=== PATIENT | female | born 2005 | race Caucasian/White ===

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

== ENCOUNTER → 2025-02-24 | Outpatient (CLI) | payer OTHER, SELFPAY | END | disposition home or self-care (01) | PROVIDERS: PCP Student in an Organized Health Care Education/Training Program; Referring Provider Advanced Practice Midwife; Visit Provider Advanced Practice Midwife | DX: N92.1 Excessive and frequent menstruation with irregular cycle (principal) | CPT/HCPCS: 36415; 85240; 85245; 85246 ==

== ENCOUNTER 2025-07-09 22:52 | Emergency (ER) | payer OTHER, SELFPAY ==
[2025-07-09 22:53] VITALS: BP 157/97; PULSE 103; RESP 18; TEMP 37.1; O2SAT 100; BMI 28.0
--- NOTE | 2025-07-09 23:08 | EKG12_ITS ---
Test Reason : CP Blood Pressure : */* mmHG Vent. Rate : 73 BPM Atrial Rate : 73 BPM P-R Int : 136 ms QRS Dur : 96 ms QT Int : 388 ms P-R-T Axes : 7 55 41 degrees QTcB Int : 427 ms Normal sinus rhythm Normal ECG Confirmed by HARRY MATHUR, CHRIS ([id number]), editorial director WILBERTO PATTERSON ([id number]) on 07/13/2025 7:29:26 AM Referred By: Confirmed By: CHRIS MCDONALD MD
[2025-07-09] MEDS: 0.9% Normal Saline (1000mL) 1,000 ML 999 ML IV (23:32)
[2025-07-09] MEDS: Ketorolac 30 MG/ML Syringe IV (23:33)
--- NOTE | 2025-07-09 23:36 | EDS_ITS ---
HPI History of Present Illness Chief Complaint: Chest Pain Informant: patient Narrative Narrative: Patient is a 20-year-old female with reported past medical history of POTS. She states that throughout the day today she has had bouts where she feels like her heart is racing and skipping beats. She does states she has had a Holter monitor before with no obvious findings for cardiac dysrhythmia. She states that symptoms were more mild or vague during the day but have worsened this evening. She describes the pain as sharp and states it does not radiate there is no nausea vomiting diaphoresis or shortness of breath. She denies any excessive stimulant use or illicit drug use. She denies any family history of cardiac disease at a young age. She states that there has been no recent travel surgery or history of DVT/PE. She denies any recent trauma or excessive activity. However as the pain has worsened throughout the evening she presents for evaluation. [facility] Medical History Strain of right rotator cuff capsule Right shoulder strain Acute pharyngitis, unspecified Hx of renal calculi Otitis media Acute bacterial conjunctivitis Bronchitis Acute frontal sinusitis, unspecified Fatigue SOB (shortness of breath) Routine sports physical exam Home Medications ?Medication ?Instructions ?Recorded ?Last Taken ?Type sertraline 50 mg tablet 50 mg PO DAILY 01/17/20 Unkn own History oxycodone-acetaminophen 5 mg-325 1 tab PO Q6H PRN PRN pain 5 days 05/23/22 Unknown Rx mg tablet #20 TABLETS Allergy/AdvReac Type Severity Reaction Status Date / Time codeine Allergy Other Verified 07/09/25 22:53 tramadol Allergy Unknown Verified 07/09/25 22:53 Family History Mother Asthma Surgical History Thumb fracture Social History household members: family Smoking Status: Never smoker substance use type: does not use ROS ROS ED Constitutional Constitutional ED: Denies chills or fever(s) ENT ENT ED: Denies sore throat Cardiovascular Cardiovascular: Reports chest pain, palpitations and racing heartbeat Respiratory/Chest Respiratory/Chest: Denies cough or dyspnea Gastrointestinal Gastrointestinal: Denies abdominal pain, diarrhea, nausea or vomiting Musculoskeletal Musculoskeletal: Denies back pain or myalgias Integumentary Denies rash Neurologic Neurologic: Denies headache(s) Hematologic/Lymphatic Hematologic/Lymphatic: Denies easy bleeding or easy bruising EXAM Physical Exam Const Vital Signs: 07/09/25 22:53 07/09/25 23:03 07/09/25 23:53 Temperature 98.7 F Temperature Source Oral Pulse Rate 103 H 75 Respiratory Rate 18 16 Respiratory Effort Normal Blood Pressure 157/97 H 132/79 H Blood Pressure Mean 117 96 Pulse Ox 100 97 Oxygen Delivery Method Room Air Room Air 07/10/25 00:00 07/10/25 00:53 Temperature 98.7 F Temperature Source Pulse Rate 66 62 Respiratory Rate 16 16 Respiratory Effort Blood Pressure 132/79 H 143/98 H Blood Pressure Mean 96 113 Pulse Ox 100 99 Oxygen Delivery Method Room Air Positive well nourished and well developed General Appearance ED: well developed; Negative for pallor HEENT HEENT Narrative: Normocephalic atraumatic Eyes PERRL and EOMs intact bilaterally General Eye ED: Negative for scleral icterus Neck supple and no JVD Chest Wall Chest Narrative: No bony deformity or subcutaneous emphysema noted There is mild pain with palpation in the intercostal spaces of the left anterior chest wall rib regions 4-6 Resp normal respiratory effort and clear to auscultation bilaterally Cardio regular rhythm Rate: other Other Details: Slightly tachycardic rate with regular rhythm No murmurs rubs or gallop Radial and carotid pulses are equal and symmetric GI normal to inspection, nondistended, normoactive bowel sounds, non-tender, non- distended and no masses Auscultation: normoactive bowel sounds Palpation: soft Extremity normal to inspection Extremity Narrative: No asymmetric edema no pitting edema negative Homans' sign bilaterally Neuro oriented x3, CN's II-XII intact bilaterally and no sensory deficits noted Sensorium / Orientation: alert Motor Exam: strength 5/5 throughout Psych mental status grossly normal Skin no rashes or lesions noted and no wounds General Skin Exam: Negative for jaundice or pallor MDM MDM MDM Narrative Medical decision making narrative: Patient arrived ER mildly tachycardic and hypertensive otherwise stable vitals. She is low risk for acute coronary syndrome as well as pulmonary embolus but did report tachycardia and palpitations prior to chest discomfort. Therefore in order to rule out acute coronary syndrome versus cardiac dysrhythmia versus pulmonary embolus versus lung pathology such as pneumonia or pneumothorax I did like to perform basic laboratory studies with EKG D-dimer and chest x-ray. EKG revealed normal sinus rhythm without ischemic or STEMI changes there was no ectopy or cardiac dysrhythmia. She was kept on the rn cardiac rehab and there was no dysrhythmia noted either. Blood work reveals no signs of acute blood loss anemia clinically significant electrolyte abnormality or JACOBO. D-dimer is negative going against PE and dissection. Troponin is normal going against ACS or myocarditis. Chest x-ray revealed no acute lung pathology. Therefore this time patient is low risk for ACS she has stable vitals and based on workup no signs of PE dissection or lung pathology and is otherwise safe for discharge. History & Record Review Discussion w/independent historian: Patient Lab Data Attestation: I reviewed the patient's lab results. Labs: Laboratory Results - last 24 hr 07/09/25 23:34 WBC 8.2 RBC 4.19 L Hgb 12.5 Hct 36.0 L MCV 85.9 MCH 29.8 MCHC 34.7 RDW Std Deviation 35.5 RDW Coeff of Delmis 11.4 L Plt Count 211 MPV 9.7 Immature Gran % (Auto) 0.200 Neut % (Auto) 59.0 Lymph % (Auto) 32.4 [place] % (Auto) 6.3 Eos % (Auto) 1.5 Baso % (Auto) 0.6 Absolute Neuts (auto) 4.8 Absolute Lymphs (auto) 2.64 Nucleated RBC % 0 D-Dimer Quant (PE/DVT) < 0.27 L Sodium 140 Potassium 3.0 L Chloride 103 Carbon Dioxide 23.3 Anion Gap 14 BUN 7 Creatinine 0.77 Estim Creat Clear Calc 104.74 Est GFR (MDRD) Non-Af 111 BUN/Creatinine Ratio 8.9 L Glucose 113 H Calcium 9.7 Magnesium 2.1 Troponin T High Sens < 6 TSH 1.920 Serum , Qual NEGATIVE Radiography Diagnostic Testing: Clinical Impression(s) from Imaging Studies Chest X-Ray 07/09/25 23:59 IMPRESSION: No evidence for acute abnormality. Reading [facility] 2 view chest x-ray as interpreted by the emergency medicine physician reveals no acute infiltrate pneumothorax pleural effusion or widening the mediastinum Discharge Plan Triage Chief Complaint: Chest Pain ED Provider: Drew Azevedo Dx/Rx/DC Orders Clinical Impression: Acute nonspecific chest pain with low risk of coronary artery disease, Palpitations Instructions: ED Chest Pain, Uncertain Cause, ED Heart Palpitations Prescriptions: No Action sertraline 50 mg tablet 50 mg PO DAILY Patient Comments: TAKE 1 TABLET BY MOUTH EVERY DAY oxycodone-acetaminophen [oxycodone-acetaminophen] 5-325 mg tablet 1 tab PO Q6H PRN PRN (Reason: pain) 5 Days Qty: 20 0RF Primary Care Provider: Celso Freire Referrals: Celso Freire DO [Primary Care Provider] - Activity Restrictions/Additional Instructions: Your workup today did not show any signs of active heart damage blood clot lung pathology or abnormal heart rhythm. Please follow-up with your family doctor and/or light cleaner repeat evaluation and return to the ER should you have any further concerns Print Language: Grenadian Disposition Disposition: Home, Self Care Discharge Date/Time: 07/10/25 00:59
[2025-07-09 23:41] LABS: Hematocrit 36.0 % (37-47); Hemoglobin 12.5 g/dL (12.0-15.0); Immature Granulocytes Count 0.020 X10^3/uL (0.0-0.0); Mean Corp Hgb Conc 34.7 g/dL (32-36); Mean Corpuscular Volume 85.9 fL (81-99); Mean Platelet Vol. 9.7 fl (6.2-12.0); NRBC Flagged by Analyzer 0 % (0-5); Platelet Count 211 K/mm3 (150-450); RBC Distribution Width CV 11.4 % (11.6-14.6); RBC Distribution Width SD 35.5 fl (35.1-43.9); Red Blood Count 4.19 M/mm3 (4.2-5.4); White Blood Count 8.2 K/mm3 (4.4-11.0)
--- OUTSIDE RECORDS SUMMARY | 2025-07-09 23:41 | XMS RPT_ITS | CCD ---
Author Organization [facility] CliniSynv Care Team Providers Care Orange Peel Operator Name Role Phone ABDI, LINDA C Unavailable Unavailable ZAUNER, CHRISTIE L Unavailable Unavailable TABOR, GENARO L Unavailable Unavailable ABDI, LINDA C Unavailable Unavailable ABDI, LINDA C Unavailable Unavailable TABOR, GENARO L Unavailable Unavailable ABDI, LINDA C Unavailable Unavailable ABDI, LINDA C Unavailable Unavailable DAISY CHUN Unavailable Unavailable ABDI, LINDA C Unavailable Unavailable ABDI, LINDA C Unavailable Unavailable TABOR, GENARO L Unavailable Unavailable ABDI, LINDA C Unavailable Unavailable ABDI, LINDA C Unavailable Unavailable TABOR, GENARO L Unavailable Unavailable ABDI, LINDA C Unavailable Unavailable ABDI, LINDA C Unavailable Unavailable TABOR, GENARO L Unavailable Unavailable ABDI, LINDA C Unavailable Unavailable ABDI, LINDA C Unavailable Unavailable Veale PAC, Donald A Unavailable Dr. Celso Freire Primary Care Provider Dr. Celso Freire Referring Provider MIGUEL Sparks Attending Provider Celso Freire DO Primary Care Provider Dr. Celso Freire Primary Care Provider Dr. Celso Freire Referring Provider MIGUEL Strickland Attending Provider Celso Freire DO Primary Care Provider Celso Freire DO Primary Care Provider Celso Freire DO Primary Care Provider CELSO FREIRE DO Primary Care Physician CELSO FREIRE DO Primary Care Unavailable DIDI LOWERY MD Attending Unavailable FREIRE, CELSO L Primary Care Unavailable CECI TOVAR Attending Unavailab le CHENG, LITTLE Referring Unavailable FREIRE, CELSO L Primary Care Unavailable CECI TOVAR Attending Unavailab le Freire DOCelso Primary Care Provider Cheng FARM MANAGER.SENIOR ACCOUNT CLERK, Little Fernandez Unavailable Lara FARM MANAGER.Kelsi TREJO Unavailable Dr. Celso Freire DO Primary Care Provider Raya Taveras CNM Attending Provider Raya Taveras CNM Referring Provider Raya Taveras Attending Unavailable Raya Taveras Referring Unavailable Freire, Celso Primary Care Unavailable Freire, Celso Primary Care Unavailable Assessment, Health Risk Attending Unavaila ble Assessment, Health Risk Referring Unavaila ble Cheng FARM MANAGER.SENIOR ACCOUNT CLERK, Little Fernandez Unavailable Sakina FARM MANAGER.MAYA, Annalisa Hendrickson Unavailable KELSI BERMUDEZ Attending Unavailable FREIRE, CELSO L Primary Care Unavailable FREIRE, ECLSO L Primary Care Unavailable JAQUELINE CARDONA Attending Unavailable MARION MATUTE Referring Unavailable Teresita'RAYA RUIZ Attending Unavailable FREIRE, CELSO L Primary Care Unavailable FEDERICO MONROY Referring Unavailable Teresita'RAYA RUIZ Attending Unavailable FEDERICO MONROY Referring Unavailable FREIRE, CELSO L Primary Care Unavailable FREIRE, CELSO L Primary Care Unavailable FEDERICO MONROY Referring Unavailable FEDERICO MONROY Referring Unavailable FEDERICO MONROY Attending Unavailable FREIRE, CELSO L Primary Care Unavailable KELSI BERMUDEZ Attending Unavailable FREIRE, CELSO L Primary Care Unavailable SELF Referring Unavailable KELSI BERMUDEZ Referring Unavailable FREIRE, CELSO L Primary Care Unavailable LARASALLY LOUEKAH Referring Unavailable FREIRE, CELSO L Primary Care Unavailable O'RAYA RUIZ Attending Unavailable FEDERICO MONROY Referring Unavailable FREIRE, CELSO L Primary Care Unavailable O'RAYA URIZ Attending Unavailable FEDERICO MONROY Referring Unavailable FREIRE, CELSO L Primary Care Unavailable FREIRE, CELSO L Primary Care Unavailable KELSI BERMUDEZ Attending Unavailable FREIRE, CELSO L Primary Care Unavailable LARAKELSI Attending Unavailable FREIRE, CELSO L Primary Care Unavailable LARA, KELSI Referring Unavailable EMELY HANDY Referring Unavailable FREIRE, CELSO L Primary Care Unavailable FREIRE, CELSO L Primary Care Unavailable FEDERICO MONROY Attending Unavailable RAYA AMBRIZ Attending Unavailable FEDERICO MONROY Referring Unavailable FREIRE, CELSO L Primary Care Unavailable FREIRE, CELSO L Primary Care Unavailable ANNALISA PRESLEY Attending Unavailable LARA, KELSI Referring Unavailable FREIRE, CELSO L Primary Care Unavailable LARA, KELSI Referring Unavailable FREIRE, CELSO L Primary Care Unavailable FREIRE, CELSO L Primary Care Unavailable JAQUELINE CARDONA Attending Unavailable MARION MATUTE Referring Unavailable RAYA TAVERAS Attending Unavailable FREIRE, CELSO L Primary Care Unavailable FREIRE, CELSO L Primary Care Unavailable KELSI BERMUDEZ Attending Unavailable FEDERICO MONROY Attending Unavailable FREIRE, CELSO L Primary Care Unavailable FREIRE, CELSO L Primary Care Unavailable LARA, KELSI Referring Unavailable RAYA TAVERAS Attending Unavailable FREIRE, CELSO L Primary Care Unavailable TAYLER DUNCAN Attending Unavailable FREIRE, CELSO L Primary Care Unavailable HAYLEY LOZOYA Attending Unavailable FREIRE, CELSO L Primary Care Unavailable TAHMINA PRESLEYANDA EMEKA Attending Unavailable FREIRE, CELSO L Primary Care Unavailable FREIRE, CELSO L Primary Care Unavailable TINA POWER Attending Unavailable TINA POWER Referring Unavailable FREIRE, CELSO L Primary Care Unavailable FREIRE, CELSO L Primary Care Unavailable ANNALISA PRESLEY Attending Unavailable HILARIO KILLIAN Attending Unavailable FREIRE, CELSO L Primary Care Unavailable LITTLE CHENG Attending Unavaillloyd e FREIRE, CELSO L Primary Care Unavailable FREIRE, CELSO L Primary Care Unavailable LARAKELSI Attending Unavailable FREIRE, CELSO L Primary Care Unavailable RAYA TAVERAS Attending Unavailable NETO MCARTHUR Referring Unavailable FREIRE, CELSO L Primary Care Unavailable NETO MCARTHUR Attending Unavailable FREIRE, CELSO L Primary Care Unavailable NETO MCARTHUR Attending Unavailable SELF Referring Unavailable FREIRE, CELSO L Primary Care Unavailable NETO MCARTHUR Referring Unavailable FREIRE, CELSO L Primary Care Unavailable KANTARAS, NETO T Attending Unavailable FREIRECELSO L Primary Care Unavailable KANTARAS, NETO T Attending Unavailable SELF Referring Unavailable FREIRECELSO L Primary Care Unavailable KANTARAS, NETO T Attending Unavailable SELF Referring Unavailable FREIRECELSO L Primary Care Unavailable KANTARAS, NETO T Referring Unavailable FREIRECELSO Primary Care Unavailable KANTARAS, NETO T Referring Unavailable FREIRECELSO Primary Care Unavailable KANTARAS, NETO T Admitting Unavailable KANTARAS, NETO T Attending Unavailable FREIRECELSO L Primary Care Unavailable KANTARAS, NETO T Referring Unavailable FREIRECELSO Primary Care Unavailable FEDERICO MONROY Referring Unavailable FREIRECELSO Primary Care Unavailable KANTARAS, NETO T Referring Unavailable FREIRECELSO HERNANDEZ Primary Care Unavailable VITEBSKIY, JALEEL ALEKSANDROVICH Admitting Unavailable VITEBSKIY, JALEEL ALEKSANDROVICH Attending Unavailable AYAAN, JALEEL ALEKSANDROVICH Referring Unavailable CELSO FREIRE Primary Care Unavailable KANTARAS, NETO T Referring Unavailable CELSO FREIRE Primary Care Unavailable PROVIDER, UNKNOWN Admitting Unavailable PROVIDER, UNKNOWN Attending Unavailable PROVIDER, UNKNOWN Referring Unavailable CELSO FREIRE Primary Care Unavailable Allergies Allergy Classification Reported Allergen(s) Allergy Type Date of Onset Reaction(s) Facility Opioid Agonists (6 sources) Codeine Drug Allergy 7 Itching, Other: See Comments [facility] (20 sources) codeine; Translations: [CODEINE] Drug Allergy 7 Other [facility] (1 source) codeine Drug Allergy 8 [facility] Work Phone: (20 sources) traMADol; Translations: [tramadol] Drug Allergy 4 Itching, Other: See Comments [facility] (1 source) traMADol Drug Allergy [address] [facility] Repository Medications Current Medications Medication Drug Class(es) Dates Sig (Normalized) Sig (Original) acetaminophen 325 mg / oxyCODONE hydrochloride 5 mg oral tablet (2 sources) Opioid Agonist Start: 05-23-2022 take 1 tablet by mouth every six hours as needed for pain Oxycodone-Acetami nophen 5-325 mg tablet Active 1 {tbl} PO EVERY 6 HOURS NEEDED as needed for pain 07 04May 23, 2022 Start: 05-23-2022 take 1 tablet by alyson th every six hours as needed Oxycodone-Acetaminophen Active 1 TABLET PO EVERY 6 HOURS NEEDED 07 04May 23, 2022 Albuterol Sulfate (13 sources) beta2-Adrenergic Agonist Start: 10-12-2021 Albut radha Sulfate Active G INHALATION October 12, 2021 12:23pm Start: 10-12-2021 End: 03-16-2022 Albuterol Sulfate 90 mcg/act uation HFA aerosol inhaler Discontinued NMA INHALATION October 12, 2021 1:00am March 16, 2022 11:35am Start: 10-12-2021 End: 03-16-2022 Albuterol Sulfate Discontinu ed G INHALATION October 12, 2021 1:00am March 16, 2022 11:35am Start: 10-10-2021 End: 10-10-2022 take 2 puff(s) by inhalation every four hours as needed for cough albuterol HFA (PROVENTIL HFA, VENTOLIN HFA) 90 mcg/actuation inhaler Indications: Exercise-induced asthma Inhale 2 Puffs as instructed every 4 hours as needed for wheezing/shortness of breath (tight cough). Dispense the brand approved by patient insurance 36 g 1 10/10/2021 10/10/2022 Discontinued Comment on above: Inhale 2 Puffs as in structed every 4 hours as needed for wheezing/shortness of breath (tight cough). Dispense the brand approved by patient insurance amoxicillin 500 mg oral capsule (10 sources) Penicillin-class Antibacterial Start: 03-31-20 End: 04-10-20 take 1 capsule by mouth twice daily amoxicillin (AMOXIL) 500 mg capsule Indications: Strep throat Take 1 capsule by mouth two times a day for 10 days. 20 capsule 0 03/31/2024 04/10/2024 Active Start: 09-24-2023 End: 10-04-2023 take 1 tablet by mouth twice daily amoxicillin (AMOXIL) 875 mg tablet Take 1 tablet by mouth two times a day for 10 days. 20 tablet 0 09/24/2023 10/04/2023 Start: 02-20-2022 End: 03-02-2022 take 2 capsules by mouth twice daily Amoxicillin 500 mg capsule Discontinued 1000 mg PO TWICE A DAY 40 February 20, 2022 12:00am March 01, 2022 12:00am March 02, 2022 12:03am Start: 02-20-2022 End: 03-02-2022 take 1000 mg by mouth twice daily Amoxicillin Active 1000 MG PO TWICE A DAY 40 February 20, 2022 6:20am Start: 01-17-2020 End: 01-27-2020 take 1 capsule by mouth three times daily Amoxicillin 500 mg capsule Discontinued 500 mg PO THREE TIMES A DAY 30 January 17, 2020 1:00am January 26, 2020 12:00am January 27, 2020 12:08am Comment on above: Take 1 tablet by alyson th two times a day for 10 days. amphetamine aspartate 1.25 mg / amphetamine sulfate 1.25 mg / dextroamphetamine saccharate 1.25 mg / dextroamphetamine sulfate 1.25 mg oral tablet (7 sources) Central Nervous System Stimulant Start: End: take 1 tablet by mouth once daily dextroamphetamine- amphetamine (ADDERALL) 5 mg tablet Indications: Attention deficit disorder (ADD) in adult , Medication management contract agreement Take 1 tablet by mouth once daily for 30 days. 30 tablet 07/03/2025 08/02/2025 Active Start: 10-09-2022 End: 11-08-2022 take 1 tablet by mouth once daily dextroamphetamine-amphetamine (ADDERALL) 5 mg tablet Indications: Attention deficit disorder (ADD) in adult Take 1 tablet by mouth once daily for 30 days. 30 tablet 0 10/09/2022 Active Comment on above: Take 1 tablet by alyson th once daily for 30 days. azelaic acid 0.15 mg/mg topical gel (20 sources) Start: 12-10-19 Azelaic Acid 15 % gel Apply a thin layer to the full face once daily in the morning 12/10/2024 Active azithromycin 250 mg oral tablet (9 sources) Macrolide Antimicrobial Start: 06-16-20 End: 06-21-20 take 2 tablets by mouth once daily, then take 1 tablet by mouth once daily azithromycin (ZITHROMAX) 250 mg tablet Indications: Acute suppurative otitis media of both ears without spontaneous rupture of tympanic membranes, recurrence not specified Take 2 tablets by mouth once daily for 1 day, THEN 1 tablet once daily for 4 days. 6 tablet 0 06/16/2024 06/21/2024 Active Start: 10-04-2023 End: 10-09-2023 azithromycin (ZITHROMAX Z-PA K) 250 mg tablet Indications: Sinobronchitis Take 2 tablets day one, then, 1 tablet daily until gone. 6 tablet 0 10/04/2023 10/09/2023 Active Start: 01-17-2020 End: 11-18-2020 Azithromycin 250 mg tablet D iscontinued 250 mg PO daily January 17, 2020 1:00am November 18, 2020 1:05pm 2 tablets today, then 1 tablet daily on days 2 through 5 Comment on above: Take 2 tablets day o ne, then, 1 tablet daily until gone. baclofen 10 mg oral tablet (20 sources) gamma-Aminobutyric Acid-ergic Agonist Start: 04-16-2025 End: 10-13-2025 take 1 tablet by mouth once daily as needed baclofen 10 mg tablet Take 1 tablet by mouth once daily as needed. 90 tablet 1 04/16/2025 10/13/2025 Active Start: 02-25-2024 End: 11-25-2024 take 1 tablet by mouth once daily at bedtime, then take 2 tablets by mouth once daily at bedtime baclofen 10 mg tablet Take 1 tablet by mouth daily at bedtime for 7 days, THEN 2 tablets daily at bedtime. 67 tablet 0 02/25/2024 04/02/2024 Active Comment on above: Take 1 tablet by alyson th daily at bedtime for 7 days, THEN 2 tablets daily at bedtime. Blood Pressure Test Kit-Medium kit (1 source) Start: 01-15-20 End: 01-16-20 Blood Pressure Test Kit-Medium kit Indications: Hypertension, essential Use as directed for blood pressure monitoring 1 Each 01/15/2025 01/16/2025 Active busPIRone hydrochloride 5 mg oral tablet (2 sources) Start: 10-05-20 End: 11-04-20 take 1 tablet by mouth three times daily as needed busPIRone (BUSPAR) 5 mg tablet Indications: Shaky , Lightheaded , OCTAVIO (generalized anxiety disorder) , Situational anxiety Take 1 tablet by mouth three times a day as needed. 30 tablet 1 10/05/2023 11/04/2023 Active Comment on above: Take 1 tablet by alyson three times a day as needed. calcium ascorbate 500 mg oral tablet (2 sources) Start: 10-12-20 take 500 mg by mouth once daily Ascorbate Calcium (Vitamin C) Active 500 MG PO DAILY October 12, 2021 12:30pm cephalexin 500 mg oral capsule (4 sources) Cephalosporin Antibacterial Start: 04-11-20 End: 04-21-20 take 1 capsule by mouth twice daily cephALEXin (KEFLEX) 500 mg capsule Indications: Strep throat Take 1 capsule by mouth two times a day for 10 days. 20 capsule 0 04/11/2024 04/21/2024 Active cholecalciferol 0.05 mg oral capsule (20 sources) Vitamin D Start: 10-29-20 take 1 capsule by mouth once daily Cholecalciferol, Vitamin D3, 50 mcg (2,000 unit) cap Indications: Vitamin D deficiency Take 1 capsule by mouth once daily. 10/29/2023 Active Start: 10-12-2021 cholecalcifero l, vitamin D3, 10 mcg (400 unit) cap Take by mouth. 0 10/12/2021 Active Comment on above: Take by mouth. Take 1 capsule by mo [facility] once daily. doxycycline hyclate 100 mg oral tablet (2 sources) Tetracycline-clas s Drug Start: 01-26-2024 End: 02-02-2024 take 1 tablet by mouth twice daily doxycycline (VIBRA-TABS) 100 mg tablet Indications: Bacterial sinusitis Take 1 tablet by mouth two times a day for 7 days. 14 tablet 0 01/26/2024 02/02/2024 Active Start: 09-18-2023 End: 09-28-2023 take 1 tablet by mouth twice daily doxycycline (VIBRA-TABS) 100 mg tablet Take 1 tablet by mouth two times a day for 10 days. 20 tablet 0 09/18/2023 09/28/2023 Active Comment on above: Take 1 tablet by alyson two times a day for 10 days. Take 1 tablet by alyson two times a day for 7 days. DULoxetine 20 mg delayed release oral capsule (20 sources) Serotonin and Norepinephrine Reuptake Inhibitor Start: take 1 capsule by mouth once daily DULoxetine DR (CYMBALTA) 20 mg capsule Indications: Depression, unspecified depression type , Stress , OCTAVIO (generalized anxiety disorder) Take 1 capsule by mouth once daily. 10 capsule 07/03/2025 Active Start: 05-27-2025 End: 08-25-2025 take 1 capsule by mouth once daily DULoxetine (CYMBALTA) 40 mg cpDR Indications: Brain fog , Depression, unspecified depression type Take 1 capsule by mouth once daily. 30 capsule 2 05/27/2025 07/03/2025 Discontinued Start: 04-16-2025 End: 07-15-2025 take 1 capsule by mouth once daily DULoxetine (CYMBALTA) 30 mg capsule Indications: Brain fog , Depression, unspecified depression type Take 1 capsule by mouth once daily. 90 capsule 04/16/2025 05/27/2025 Discontinued Start: 10-05-2023 End: 04-16-2025 take 1 capsule by mouth once daily DULoxetine (CYMBALTA) 60 mg capsule Indications: Shaky , Lightheaded , OCTAVIO (generalized anxiety disorder) , Situational anxiety Take 1 capsule by mouth once daily. 30 capsule 2 02/27/2024 04/16/2025 Discontinued Start: 01-25-2023 End: 10-23-2023 take 2 capsules by mouth once daily DULoxetine (CYMBALTA) 20 mg capsule Indications: Anxiety with depression Take 2 capsules by mouth once daily. 90 capsule 1 02/19/2023 07/16/2023 Discontinued Start: 11-06-2022 End: 11-29-2022 take 1 capsule by mouth once daily DULoxetine (CYMBALTA) 20 mg capsule Indications: Anxiety with depression TAKE 1 CAPSULE BY MOUTH ONCE DAILY 90 capsule 1 11/29/2022 Active Comment on above: Take 1 capsule by mo uth once daily. TAKE 1 CAPSULE BY MO UTH ONCE DAILY Take 2 capsules by m outh once daily. Norgestimate-Ethinyl Estradiol (4 sources) Progestin, Estrogen Start: 01-17-2020 Norgestimate-Ethinyl Estradiol Active TABLET PO January 17, 2020 2:48pm Start: 01-17-2020 End: 03-16-2022 Norgestimate-Ethinyl Estradi ol 0.18/0.215/0.25 mg-35 mcg (28) tablet Discontinued {tbl} PO January 17, 2020 1:00am March 16, 2022 11:36am Start: 01-17-2020 End: 03-16-2022 Norgestimate-Ethinyl Estradi ol Discontinued TABLET PO January 17, 2020 1:00am March 16, 2022 11:36am fluconazole 150 mg oral tablet (2 sources) Azole Antifungal Start: 04-11-2024 End: 04-11-2024 fluconazole (DIFLUCAN) 150 mg tablet Take 1 tablet by mouth one time only for 1 dose. Repeat in 3 days as needed. 2 tablet 0 04/11/2024 04/11/2024 Active hydroCHLOROthiazide 50 mg / triamterene 75 mg oral tablet (20 sources) Potassium-sparing Diuretic, Thiazide Diuretic Start: 01-15-2025 End: 09-17-2025 take 1 tablet by mouth once daily triamterene-hydroC HLOROthiazide (MAXZIDE) 75-50 mg per tablet Indications: Hypertension, essential Take 1 tablet by mouth once daily. 30 tablet 2 06/19/2025 09/17/2025 Active lamoTRIgine 25 mg oral tablet (3 sources) Mood Stabilizer, Anti-epileptic Agent Start: 07-03-2025 End: 08-02-2025 take 1 tablet by mouth twice daily lamoTRIgine (LAMICTAL) 25 mg tablet Indications: Depression, unspecified depression type , Stress , OCTAVIO (generalized anxiety disorder) Take 1 tablet by mouth two times a day. Start taking 25mg 1 tab daily x 14 days and then increase to 25mg twice daily 60 tablet 07/03/2025 08/02/2025 Active levonorgestrel 0.468995 mg/hr intrauterine system (20 sources) Progestin, Progestin-contain ing Intrauterine Device Start: 01-05-2025 End: 01-03-2033 levonorgestrel (MIRENA) 21 mcg/24hr (up to 8 yrs) 52 mg IUD 1 Each by INTRAUTERINE route as directed. 1 Each 01/05/2025 01/03/2033 Active Start: 01-05-2025 End: 01-05-2025 1 Each, INTRAUTERINE, ONCE ( UP TO 30 DAYS AMB), 1 dose, On 01/05/25 at 1400, Hazardous Potential Reproductive Risk Drug: Use appropriate PPE. Start: 10-24-2021 End: 10-23-2026 levonorgestrel (KYLEENA) 17. 5 mcg/24 hrs (5 yrs) 19.5 mg IUD 1 Each by INTRAUTERINE route as directed. 1 Each 10/24/2021 10/05/2023 Discontinued Comment on above: 1 Each by INTRAUTERI NE route as directed. lisinopril 20 mg oral tablet (20 sources) Angiotensin Converting Enzyme Inhibitor Start: End: take 1 tablet by mouth once daily lisinopril (ZESTRIL) 20 mg tablet Indications: Hypertension, essential Take 1 tablet by mouth once daily. 30 tablet 2 07/03/2025 10/01/2025 Active Start: 02-26-2024 End: 02-25-2025 take 1 tablet by mouth once daily lisinopril (ZESTRIL) 5 mg tablet Indications: Hypertension, essential Take 1 tablet by mouth once daily. 90 tablet 3 02/26/2024 12/26/2024 Discontinued Start: 12-07-2023 End: 02-26-2024 take 0.5 tablet by mouth once daily lisinopril (ZESTRIL) 10 mg tablet Indications: Tachycardia , Abnormal tilt table test , H/O multiple concussions , Migraine with aura, not intractable, without status migrainosus , Hypertension, essential , Palpitations Take 0.5 tablets by mouth once daily. 90 tablet 1 12/07/2023 12/26/2023 Discontinued Start: 09-20-2023 End: 10-15-2023 take 1 tablet by mouth once daily lisinopril (ZESTRIL) 10 mg tablet Indications: H/O multiple concussions , Migraine with aura, not intractable, without status migrainosus , Tachycardia , Hypertension, essential , Abnormal tilt table test , Palpitations TAKE 1 TABLET BY MOUTH EVERY DAY 90 tablet 1 10/15/2023 Active Comment on above: Take 1 tablet by alyson th once daily. TAKE 1 TABLET BY ALYSON TH EVERY DAY Take 0.5 tablets by mouth once daily. methylPREDNISolone (3 sources) Corticosteroid Start: 2023 End: 2023 methylPREDNISolone (MEDROL, LIZ,) 4 mg Dose-Pack Follow dosing instructions, take with food. 21 tablet 0 06/18/2024 06/24/2024 Active 24 hr metoprolol succinate 100 mg extended release oral tablet (20 sources) beta-Adrenergic Gaby Start: 2023 End: 2024 take 1.5 tablets by mouth once daily metoprolol succinate ER (TOPROL XL) 100 mg Indications: Hypertension, essential , Palpitations , Tachycardia Take 1.5 tablets by mouth once daily. 135 tablet 1 01/29/2025 07/28/2025 Active Start: 07-24-2024 End: 10-22-2024 take 1 tablet by mouth once daily metoprolol succinate ER (TOPROL XL) 100 mg Indications: Hypertension, essential , Palpitations , Tachycardia Take 1 tablet by mouth once daily. 30 tablet 2 07/24/2024 10/21/2024 Discontinued (Adjust Sig - Block E-Cancel) Start: 04-25-2023 End: 02-25-2025 take 1 tablet by mouth once daily metoprolol succinate ER (TOPROL XL) 50 mg 24 hr tablet Indications: Tachycardia , Hypertension, essential Take 1 tablet by mouth once daily. 90 tablet 1 04/25/2023 02/21/2024 Discontinued Start: 02-19-2023 End: 04-25-2023 take 1 tablet by mouth once daily metoprolol succinate ER (TOPROL XL) 25 mg 24 hr tablet Indications: H/O multiple concussions , Migraine with aura, not intractable, without status migrainosus Take 1 tablet by mouth once daily. 90 tablet 1 02/19/2023 04/25/2023 Discontinued Start: 07-28-2022 End: 09-11-2022 take 1 tablet by mouth once daily metoprolol succinate ER (TOPROL XL) 25 mg 24 hr tablet Indications: H/O multiple concussions , Migraine with aura, not intractable, without status migrainosus Take 1 tablet by mouth once daily. 30 tablet 1 07/28/2022 08/28/2022 Discontinued Comment on above: Take 1 tablet by alyson th once daily. TAKE 1 TABLET BY ALYSON TH EVERY DAY Take 1.5 tablets by mouth once daily. ondansetron 4 mg oral tablet (19 sources) Serotonin-3 Receptor Antagonist Start: 05-16-2 025 take 1 tablet by mouth every eight hours as needed ondansetron (ZOFRAN) 4 mg tablet Take 1 tablet by mouth every 8 hours as needed. 20 tablet 04/03/2025 Active oxyCODONE hydrochloride 5 mg oral tablet (1 source) Opioid Agonist Start: End: oxyCODONE IR (ROXICODONE) 5 mg immediate release tablet Indications: Superior glenoid labrum lesion of right shoulder, subsequent encounter 1 by mouth every 6 hours as needed for pain. 28 tablet 04/03/2025 04/10/2025 Active PARoxetine hydrochloride 10 mg oral tablet (20 sources) Serotonin Reuptake Inhibitor Start: End: take 1 tablet by mouth once daily PARoxetine (PAXIL) 10 mg tablet Indications: Depression, unspecified depression type , Stress , OCTAVIO (generalized anxiety disorder) Take 1 tablet by mouth once daily. 30 tablet 5 07/03/2025 12/30/2025 Active Comment on above: Take 1 tablet by alyson once daily. predniSONE 20 mg oral tablet (2 sources) Start: End: take 1 tablet by mouth once daily at mealtime predniSONE (DELTASONE) 20 mg tablet Indications: Strep throat Take 1 tablet by mouth once daily for 4 days. Take daily with food. 4 tablet 0 04/11/2024 04/15/2024 Active tretinoin 0.25 mg/ml topical cream (20 sources) Retinoid Start: tretinoin (RETIN-A) 0.025 % topical cream Mix 50/50 with moisturizer and apply to the affected areas of the face every night. 12/10/2024 Active triamcinolone acetonide 1 mg/ml topical cream (7 sources) Corticosteroid Start: End: triamcinolone acetonide (KENALOG) 0.1 % cream Indications: Skin eruption Apply to affected area two times a day for 14 days. 30 g 1 04/21/2025 05/05/2025 Active Start: 12-28-2023 End: 12-28-2023 triamcinolone acetonide 40 m g injection (KeNALog 40) Start: 11-16-2023 triamcinolone (KENALOG) 0.025 % cream Indications: Irritant contact dermatitis due to cosmetics Apply to affected area three times a day. 15 g 1 10/04/2023 Active Comment on above: Apply to affected ar ea three times a day. ubrogepant 100 mg oral tablet (20 sources) Start: 04-23-2024 ubrogepant (UBRELVY) 100 mg tablet Take 1 tab at migraine onset. May repeat once in 2 hours as needed. 16 tablet 11 04/23/2024 Active Completed/Discontinued Medications Medication Drug Class(es) Dates Sig (Normalized) Sig (Original) amoxicillin 875 mg / clavulanate 125 mg oral tablet (12 sources) Penicillin-class Antibacterial Start: 05-15-2025 End: 05-25-2025 take 1 tablet by mouth twice daily amoxicillin-clavu lanate potassium (AUGMENTIN) 875-125 mg per tablet Indications: Acute non-recurrent sinusitis, unspecified location Take 1 tablet by mouth two times a day for 10 days. 20 tablet 05/15/2025 05/25/2025 Start: 01-22-2025 End: 01-27-2025 take 1 tablet by mouth twice daily amoxicillin-clavulanate potassium (AUGMENTIN) 875-125 mg per tablet Take 1 tablet by mouth two times a day for 5 days. 10 tablet 01/22/2025 01/27/2025 Active Start: 08-08-2021 End: 08-09-2021 Amoxicillin-Pot Clavulanate (Augmentin) 875-125 mg tablet Discontinued 1 {tbl} PO Q12H 07 09August 08, 2021 12:00am August 17, 2021 12:00am August 09, 2021 2:20pm Start: 11-18-2020 End: 11-28-2020 Amoxicillin-Pot Clavulanate (Augmentin) 875-125 mg tablet Discontinued 1 {tbl} PO Q12H 07 09November 18, 2020 1:00am November 27, 2020 1:00am November 28, 2020 1:03am benzonatate 100 mg oral capsule (20 sources) Non-narcotic Antitussive Start: 05-15-2025 End: 05-22-2025 take 1 capsule by mouth three times daily as needed for cough benzonatate (TESSALON PERLE) 100 mg capsule Indications: Acute non-recurrent sinusitis, unspecified location Take 1 capsule by mouth three times a day as needed for cough for up to 7 days. 21 capsule 05/15/2025 05/22/2025 Start: 06-16-2024 End: 06-20-2024 take 1 capsule by mouth every eight hours as needed for cough and cough benzonatate (TESSALON PERLES) 100 mg capsule Indications: Acute cough Take 1 capsule by mouth three times a day as needed for cough. 30 capsule 0 06/16/2024 06/20/2024 Discontinued Start: 01-21-2024 End: 04-23-2024 benzonatate (TESSALON PERLE) 100 mg capsule betamethasone 3 mg/ml / betamethasone acetate 3 mg/ml injectable suspension (2 sources) Corticosteroid Start: 08-29-2024 End: 08-29-2024 betamethasone acetate-betamethasone sodium phosphate 6 mg injection (CELESTONE) Start: 08-29-2024 End: 08-29-2024 6 mg, Injection - FOR ORTHO USE ONLY, ONCE, 1 dose, Starting on Sun08/29/24 at 1044, Until Sun08/29/24 at 1044 onabotulinumtoxina 200 unt injection (4 sources) Acetylcholine Release Inhibitor Start: 05-28-2025 End: 05-28-2025 onabotulinum toxin type A 200 Units injection (BOTOX) Start: 05-28-2025 End: 05-28-2025 inject 1 dose by intramuscular injection once 200 Units, INTRAMUSCULAR, ONCE, 1 dose, On Sun05/28/25 at 0830, This record documents the total dose provided to patient. See progress note for specific locations and amounts administered. Start: 02-13-2025 End: 02-13-2025 onabotulinum toxin type A 20 0 Units injection (BOTOX) Start: 02-13-2025 End: 02-13-2025 inject 1 dose by intramuscular injection once 200 Units, INTRAMUSCULAR, ONCE, 1 dose, On Sun02/13/25 at 1300, This record documents the total dose provided to patient. See progress note for specific locations and amounts administered. brompheniramine maleate 0.4 mg/ml / dextromethorphan hydrobromide 2 mg/ml / pseudoephedrine hydrochloride 6 mg/ml oral solution (4 sources) alpha-Adrenergic Agonist, Uncompetitive E-gckxwg-U-aspartate Receptor Antagonist, Sigma-1 Agonist Start: 01-17-2020 End: 10-12-2021 Vrfmnebodopyejz-Mwdsatkgf-Oc 2-30-10 mg/5 mL syrup Discontinued mL PO January 17, 2020 1:00am October 12, 2021 12:23pm Start: 01-17-2020 End: 10-12-2021 Ycbvbxxaytftwax-Tygcywwjg-Em Discontinued ML PO January 17, 2020 2:48pm October 12, 2021 12:23pm 30 ml bupivacaine hydrochloride 5 mg/ml injection (2 sources) Amide Local Anesthetic Start: 08-29-2024 End: 08-29-2024 BUPivacaine (PF) 0.5 % (5 mg/mL) 4 mL injection Start: 08-29-2024 End: 08-29-2024 4 mL, Injection - FOR ORTHO USE ONLY, ONCE, 1 dose, Starting on Sun08/29/24 at 1044, Until Sun08/29/24 at 1044 drospirenone, contraceptive, (SLYND) 4 mg (28) tabet (10 sources) Start: 05-06-2024 End: 06-20-2024 take 1 tablet by mouth once daily drospirenone, contraceptive, (SLYND) 4 mg (28) tabet Indications: Irregular menstrual bleeding , Heavy menses due to IUD (HCC) (HCC) , Essential hypertension , Breakthrough bleeding on Depo-Provera Take 1 tablet by mouth once daily. 90 tablet 3 05/06/2024 06/20/2024 Discontinued Start: 05-06-2024 End: 04-07-2025 take 1 tablet by mouth once daily drospirenone, contraceptive, (SLYND) 4 mg (28) tabet Indications: Irregular menstrual bleeding , Heavy menses due to IUD (HCC) (HCC) , Essential hypertension , Breakthrough bleeding on Depo-Provera Take 1 tablet by mouth once daily. 90 tablet 3 05/06/2024 04/07/2025 Active eletriptan 20 mg oral tablet (1 source) Serotonin-1b and Serotonin-1d Receptor Agonist Start: 02-25-2024 End: 02-25-2024 take 1 tablet by mouth every two hours as needed for headache eletriptan (RELPAX) 20 mg tablet Take 1 tablet (20 mg) by mouth as needed for migraine headache (see administration instructions). May repeat dose after 2 hours if needed. Maximum daily dose is 80 mg per day. 9 tablet 0 02/25/2024 02/25/2024 Discontinued (Course of therapy completed) Comment on above: Take 1 tablet (20 mg ) by mouth as needed for migraine headache (see administration instructions). May repeat dose after 2 hours if needed. Maximum daily dose is 80 mg per day. Ethinyl Estradiol / Norethindrone (18 sources) Estrogen Start: 07-31-2023 End: 01-24-2024 take 1 tablet by mouth once daily, then take 0.05 tablet by mouth once Norethindrone Acet-Ethinyl Est (,) 1-20 mg-mcg per tablet Take 1 tablet by mouth once daily. 63 tablet 3 07/31/2023 01/24/2024 Discontinued Start: 07-31-2023 take 1 tablet by alyson th once daily, then take 0.05 tablet by mouth once Norethindrone Acet-Ethinyl Est (,) 1-20 mg-mcg per tablet Take 1 tablet by mouth once daily. 63 tablet 3 07/31/2023 Active Comment on above: Take 1 tablet by alyson th once daily. etodolac 400 mg oral tablet (10 sources) Nonsteroidal Anti-inflammatory Drug Start: 08-01-20 End: 10-21-20 24 take 1 tablet by mouth twice daily etodolac (LODINE) 400 mg tablet Take 1 tablet by mouth two times a day. 60 tablet 08/01/2024 10/21/2024 Discontinued fluticasone propionate 0.05 mg/actuat metered dose nasal spray (11 sources) Corticosteroid Start: 09-04-20 End: 10-10-20 fluticasone (FLONASE) 50 mcg/actuation nasal spray USE 1 SPRAY IN EACH NOSTRIL ONCE DAILY. UP TO TWICE A DAY IF NEEDED. RINSE MOUTH AFTER USE. 48 mL 1 09/04/2020 10/10/2022 Discontinued Start: 01-17-2020 Fluticasone Pr opionate Active INTRANASAL January 17, 2020 2:48pm Comment on above: USE 1 SPRAY IN EACH NOSTRIL ONCE DAILY. UP TO TWICE A DAY IF NEEDED. RINSE MOUTH AFTER USE. 1 ml galcanezumab-gnl m 120 mg/ml auto-injector (20 sources) Start: End: inject 1 mL by subcutaneous injection every month galcanezumab-gnlm (EMGALITY PEN) 120 mg/mL pen Inject 1 mL subcutaneously once every month. Refrigerate. Do not shake. Patient should start on June 04, 2024. 1 Each 06/04/2024 02/13/2025 Discontinued Start: 05-08-2024 End: 02-13-2025 galcanezumab-gnlm (EMGALITY PEN) 120 mg/mL pen Inject 2 pens (240 mg) under the skin 1 time only for initial loading dose. Refrigerate. Do not shake. 2 Each 05/08/2024 02/13/2025 Discontinued iv contrast (will be provided with radiology test) (20 sources) Start: 03-26-2023 End: 10-05-2023 inject 1 dose intravenously once iv contrast (will be provided with radiology test) MRI Brain Inject, intravenously, once for 1 dose.No IV access, insert saline lock prior to beginning of sedation, infusion, injection of imaging exam.Discontinue saline lock post exam. If Pt. has a central line or IVAD, may access for administration according to line specific nursing protocol.Once exam is complete flush line and de-access according to line specific nursing protocol in the MR contrast administration guidelines link 1 Each 03/26/2023 10/05/2023 Discontinued Start: 03-26-2023 End: 10-05-2023 inject 1 dose intravenously once iv contrast (will be provided with radiology test) MRI Brain Inject, intravenously, once for 1 dose.No IV access, insert saline lock prior to beginning of sedation, infusion, injection of imaging exam.Discontinue saline lock post exam. If Pt. has a central line or IVAD, may access for administration according to line specific nursing protocol.Once exam is complete flush line and de-access according to line specific nursing protocol in the MR contrast administration guidelines link 1 Each 0 03/26/2023 10/05/2023 Discontinued Start: 03-26-2023 inject 1 dose intravenously on ce iv contrast (will be provided with radiology test) MRI Brain Inject, intravenously, once for 1 dose.No IV access, insert saline lock prior to beginning of sedation, infusion, injection of imaging exam.Discontinue saline lock post exam. If Pt. has a central line or IVAD, may access for administration according to line specific nursing protocol.Once exam is complete flush line and de-access according to line specific nursing protocol in the MR contrast administration guidelines link 1 Each 0 03/26/2023 Active Comment on above: MRI Brain Inject, in travenously, once for 1 dose.No IV access, insert saline lock prior to beginning of sedation, infusion, injection of imaging exam.Discontinue saline lock post exam. If Pt. has a central line or IVAD, may access for administration according to line specific nursing protocol.Once exam is complete flush line and de-access according to line specific nursing protocol in the MR contrast administration guidelines link 10 ml lidocaine hydrochloride 10 mg/ml injection (3 sources) Antiarrhythmic, Amide Local Anesthetic Start: 08-29-2024 End: 08-29-2024 lidocaine (PF) 10 mg/mL (1 %) 4 mL injection (XYLOCAINE) Start: 08-29-2024 End: 08-29-2024 4 mL, Injection - FOR ORTHO USE ONLY, ONCE, 1 dose, Starting on Sun08/29/24 at 1044, Until Sun08/29/24 at 1044 Start: 12-28-2023 End: 12-28-2023 lidocaine (PF) 10 mg/mL (1 % ) 4 mL injection (XYLOCAINE) magnesium (1 source) Start: 10-02-2018 MAGNESIUM CAPS take 1 capsule once daily MAGNESIUM CAPS [id number] Donald JANSEN mecobalamin 1 mg chewable tablet (11 sources) Start: 10-12-2021 mecobalamin, vitamin B12, 1,000 mcg chew Take by mouth. 0 10/12/2021 Active Comment on above: Take by mouth. miSOPROStol 0.2 mg oral tablet (9 sources) Prostaglandin E1 Analog Start: 10-10-2021 End: 10-10-2022 miSOPROStol (CYTOTEC) 200 mcg tablet Use 2 tablets vaginally as directed. The night before the procedure and the morning of the procedure. 4 tablet 10/10/2021 10/10/2022 Discontinued Comment on above: Use 2 tablets vagina lly as directed. The night before the procedure and the morning of the procedure. naratriptan 1 mg oral tablet (12 sources) Serotonin-1b and Serotonin-1d Receptor Agonist Start: 02-25-2024 End: 04-23-2024 take 1 tablet by mouth every four hours as needed for headache naratriptan (AMERGE) 1 mg tablet Take 1 tablet (1 mg) by mouth as needed for migraine headache (see administration instructions). May repeat dose after 4 hours if needed. Maximum daily dose is 5 mg per day. 9 tablet 0 02/25/2024 04/23/2024 Discontinued Comment on above: Take 1 tablet (1 mg) by mouth as needed for migraine headache (see administration instructions). May repeat dose after 4 hours if needed. Maximum daily dose is 5 mg per day. norethindrone acetate 5 mg oral tablet (20 sources) Start: 05-06-2024 End: 06-20-2025 take 1 tablet by mouth once daily norethindrone (AYGESTIN) 5 mg tablet Take 1 tablet by mouth once daily. 90 tablet 3 06/20/2024 12/26/2024 Discontinued Start: 01-24-2024 End: 12-25-2024 take 1 tablet by mouth once daily Norethindrone, Contraceptive, (JOLENE) 0.35 mg tablet Take 1 tablet by mouth once daily. 84 tablet 3 01/24/2024 05/06/2024 Discontinued (Side Effects) Start: 10-10-2022 End: 07-31-2023 take 1 tablet by mouth once daily Norethindrone, Contraceptive, (ORTHO MICRONOR) 0.35 mg tablet Take 1 tablet by mouth once daily. 84 tablet 4 02/19/2023 07/31/2023 Discontinued Comment on above: Take 1 tablet by alyson th once daily. perflutren lipid microspheres 1.3 mL in NaCl (PF) 0.9% 10 mL injection (DEFINITY) (20 sources) Start: 03-28-20 23 End: 06-26-20 24 perflutren lipid microspheres 1.3 mL in NaCl (PF) 0.9% 10 mL injection (DEFINITY) polymyxin b [id number] unt/ml / trimethoprim 1 mg/ml ophthalmic solution (4 sources) Dihydrofolate Reductase Inhibitor Antibacterial, Polymyxin-class Antibacterial Start: 10-29-20 End: 11-05-20 Polymyxin B Sulf-Trimethoprim (Polytrim) 10,000 unit- 1 mg/mL drops Discontinued 1 NMA OPHTHALMIC Q3H 10 7 October 29, 2020 1:00am November 04, 2020 1:00am November 05, 2020 1:03am while awake; do not exceed 6 doses in 24 hours rizatriptan 5 mg disintegrating oral tablet (20 sources) Serotonin-1b and Serotonin-1d Receptor Agonist Start: 11-20-19 End: 02-25-20 take 1 tablet by mouth every two hours as needed rizatriptan 5 mg disintegrating tablet Indications: History of migraine Take 1 tablet (5 mg) by mouth as needed. May repeat in 2 hours if needed 9 tablet 2 01/26/2024 02/25/2024 Discontinued (Course of therapy completed) Start: 09-20-2023 End: 10-20-2023 take 1 tablet by mouth every two hours as needed rizatriptan 5 mg disintegrating tablet Indications: Migraine with aura, not intractable, without status migrainosus , Tachycardia , Hypertension, essential Take 1 tablet (5 mg) by mouth as needed. May repeat in 2 hours if needed 9 tablet 2 09/20/2023 10/20/2023 Active Start: 07-28-2022 End: 09-08-2023 take 1 tablet by mouth every two hours as needed rizatriptan (MAXALT ANIMAL GROOMER) 5 mg disintegrating tablet Indications: H/O multiple concussions , Migraine with aura, not intractable, without status migrainosus Take 1 tablet by mouth as needed. May repeat in 2 hours if needed 9 tablet 2 09/28/2022 08/09/2023 Discontinued Comment on above: Take 1 tablet by alyson th as needed. May repeat in 2 hours if needed Take 1 tablet (5 mg) by mouth as needed. May repeat in 2 hours if needed sertraline 25 mg oral tablet (19 sources) Serotonin Reuptake Inhibitor Start: 11-06-2022 take 1 tablet by mouth once daily sertraline (ZOLOFT) 25 mg tablet Indications: Anxiety with depression Take 1 tablet by mouth once daily. 11 tablet 0 11/06/2022 Active Start: 01-26-2022 End: 01-25-2023 sertraline (ZOLOFT) 100 mg t ablet Indications: Depression, unspecified depression type TAKE 1 AND 1/2 TABLETS DAILY BY MOUTH 270 tablet 1 01/26/2022 01/25/2023 Discontinued (Course of therapy completed) Start: 01-17-2020 Sertraline Act joe MG PO January 17, 2020 2:48pm Start: 01-17-2020 take 1 tablet by alyson th once daily Sertraline 50 mg tablet Active 50 mg PO DAILY January 17, 2020 1:00am Comment on above: TAKE 1 AND 1/2 TABLE TS DAILY BY MOUTH Take 1 tablet by alyson th once daily. sodium chloride 0.111 meq/ml nasal spray (20 sources) Start: 06-16-2024 End: 07-15-2024 sodium chloride (SALINE MIST) 0.65 % nasal spray Indications: Acute suppurative otitis media of both ears without spontaneous rupture of tympanic membranes, recurrence not specified Use 1 [place] in the nose two times a day. 88 mL 2 06/16/2024 07/15/2024 Discontinued Start: 03-28-2023 End: 06-26-2024 sodium chloride 0.9 % (flush ) 10 mL (BD POSIFLUSH) sulfamethoxazole 800 mg / trimethoprim 160 mg oral tablet (4 sources) Dihydrofolate Reductase Inhibitor Antibacterial, Sulfonamide Antimicrobial Start: 08-09-2021 End: 08-16-2021 Sulfamethoxazole-Trimethopri m (Bactrim Ds) 800-160 mg tablet Discontinued 1 {tbl} PO Q12H 14 7 August 09, 2021 12:00am August 15, 2021 12:00am August 16, 2021 12:01am vitamin B 12 (1 source) Vitamin B12 Start: 10-02-2018 B-12 CAPS take 1 capsule twi ce daily CYANOCOBALAMIN CAPS [id number] Donald Singh PAC Problems Active Problems Problem Classification Problem Date Documented Date Episodic/Chronic Abdominal pain (8 sources) Pain in female pelvis; Translations: [Pelvic and perineal pain] Onset: 05-27-2025 07-31-2023 Episodic Adjustment disorders (7 sources) Stress; Translations: [Reaction to severe stress, unspecified] Onset: 10-21-2024 02-26-2024 Chronic Administrative/social admission (6 sources) Special examination status; Translations: [Encounter for examination for participation in sport] Onset: 07-03-2025 10-12-2021 Episodic Allergic reactions (1 source) Irritant contact dermatitis due to cosmetic; Translations: [Irritant contact dermatitis due to cosmetics] 10-04-2023 Episodic Anxiety disorders (16 sources) Mixed anxiety and depressive disorder; Translations: [Other specified anxiety disorders] Onset: 05-27-2025 Chronic Asthma (20 sources) Exercise-induced asthma; Translations: [Exercise induced bronchospasm] Onset: 10-10-2021 10-10-2021 Chronic Cardiac dysrhythmias (20 sources) Postural orthostatic tachycardia syndrome ; Translations: [POTS (postural orthostatic tachycardia syndrome)] 03-23-2025 Chronic Chronic obstructive pulmonary disease and bronchiectasis (4 sources) Bronchitis; Translations: [Bronchitis, not specified as acute or chronic] 10-12-2021 Episodic Complication of device; implant or graft (1 source) Menorrhagia; Translations: [Other specified complication of genitourinary prosthetic devices, implants and grafts, initial encounter] 05-06-2024 Episodic Delirium, dementia, and amnestic and other cognitive disorders (3 sources) Postconcussion syndrome; Translations: [Postconcussional syndrome] 02-25-2024 Chronic Disorders usually diagnosed in infancy, childhood, or adolescence (3 sources) Adult attention deficit hyperactivity disorder ; Translations: [Other specified behavioral and emotional disorders with onset usually occurring in childhood and adolescence] Onset: 07-03-2025 Chronic Essential hypertension (20 sources) Essential hypertension; Translations: [Essential (primary) hypertension] Onset: 12-07-2023 Chronic Genitourinary symptoms and ill-defined conditions (6 sources) Increased frequency of urination; Translations: [Frequency of micturition] Onset: 05-27-2025 09-12-2023 Episodic Headache; including migraine (20 sources) Migraine with aura; Translations: [Migraine with aura, not intractable, without status migrainosus] Onset: 12-07-2023 Chronic Headache; including migraine (1 source) Daily headache; Translations: [Daily headache] Episodic Immunizations and screening for infectious disease (14 sources) Patient encounter status; Translations: [Encounter for immunization] Episodic Inflammation; infection of eye (except that caused by tuberculosis or sexually transmitteddisease) (4 sources) Acute infectious conjunctivitis; Translations: [Unspecified acute conjunctivitis, unspecified eye] 10-12-2021 Episodic Joint disorders and dislocations; trauma-related (20 sources) Derangement of right knee; Translations: [Unspecified internal derangement of right knee] Onset: 12-07-2023 12-07-2023 Chronic Menstrual disorders (12 sources) Irregular periods; Translations: [Irregular menstruation, unspecified] Onset: 11-25-2024 Chronic Mood disorders (8 sources) Depressive disorder; Translations: [Depression, unspecified depression type] 02-26-2024 Chronic Mood disorders (2 sources) Premenstrual tension syndrome; Translations: [Mood disorder due to known physiological condition, unspecified] Onset: 05-27-2025 05-27-2025 Episodic Mood disorders (1 source) Mood disorders; Translations: [Depression, unspecified depression type] Onset: 10-21-2024 Other circulatory disease (1 source) Elevated blood-pressure reading without diagnosis of hypertension; Translations: [Elevated blood-pressure reading, without diagnosis of hypertension] Episodic Other ear and sense organ disorders (20 sources) Hearing difficulty; Translations: [Unspecified hearing loss, left ear] Onset: 03-26-2023 Chronic Other ear and sense organ disorders (3 sources) Sensorineural hearing loss, unilateral, left ear, with unrestricted hearing on the contralateral side; Translations: [Sensorineural hearing loss, unilateral] Chronic Other female genital disorders (5 sources) Abnormal uterine bleeding; Translations: [Abnormal uterine and vaginal bleeding, unspecified] 11-20-2024 Chronic Other female genital disorders (1 source) Other specified abnormal uterine and vaginal bleeding; Translations: [DUB (dysfunctional uterine bleeding)] Onset: 06-01-2025 Chronic Other female genital disorders (1 source) Abnormal uterine and vaginal bleeding, unspecified; Translations: [Abnormal uterine bleeding (AUB)] Onset: 12-02-2024 Chronic Other infections; including parasitic (1 source) Post-viral disorder; Translations: [[id number] condition] Chronic Other injuries and conditions due to external causes (1 source) Unspecified injury of right lower leg, initial encounter; Translations: [Knee, leg, ankle, and foot injury] Episodic Other injuries and conditions due to external causes (1 source) Injury of superior glenoid labrum of shoulder joint 01-20-2025 Episodic Other injuries and conditions due to external causes (1 source) Injury of right knee; Translations: [Unspecified injury of right lower leg, initial encounter] 10-12-2021 Episodic Other lower respiratory disease (2 sources) Cough; Translations: [Acute cough] 06-16-2024 Episodic Other nervous system disorders (20 sources) Disorder of autonomic nervous system; Translations: [Disorder of the autonomic nervous system, unspecified] Onset: 02-21-2024 02-21-2024 Chronic Other nervous system disorders (2 sources) Cognitive deficit in communication skills; Translations: [Cognitive communication deficit] 05-05-2024 Chronic Other nervous system disorders (1 source) Other chronic pain; Translations: [Chronic right shoulder pain] Onset: 04-06-2025 Chronic Other nervous system disorders (5 sources) Tremor; Translations: [Tremor, unspecified] 10-04-2023 Episodic Other nervous system disorders (1 source) H/O: migraine; Translations: [Personal history of other diseases of the nervous system and sense organs] 01-26-2024 Episodic Other nervous system disorders (7 sources) Impaired cognition; Translations: [Other symptoms and signs involving cognitive functions and awareness] 01-15-2025 Episodic Other non-traumatic joint disorders (2 sources) Pain of left wrist; Translations: [Pain in left wrist] Episodic Other non-traumatic joint disorders (2 sources) Instability of right shoulder joint; Translations: [Other instability, right shoulder] 08-01-2024 Episodic Other nutritional; endocrine; and metabolic disorders (3 sources) Insulin resistance; Translations: [Insulin resistance] 11-25-2024 Chronic Other screening for suspected conditions (not mental disorders or infectious disease) (8 sources) Abnormal results function studies of central nervous system; Translations: [Abnormal results of other function studies of central nervous system] Onset: 12-07-2023 07-26-2023 Episodic Other skin disorders (2 sources) Loss of hair; Translations: [Nonscarring hair loss, unspecified] Episodic Other skin disorders (1 source) Eruption; Translations: [Rash and other nonspecific skin eruption] 04-21-2025 Episodic Other skin disorders (1 source) Rash and other nonspecific skin eruption; Translations: [Skin eruption] Onset: 04-21-2025 Episodic Other upper respiratory infections (3 sources) Chronic sinusitis; Translations: [Chronic sinusitis, unspecified] 10-04-2023 Chronic Otitis media and related conditions (6 sources) Otitis media; Translations: [Otitis media, unspecified, unspecified ear] 09-18-2023 Episodic Residual codes; unclassified (1 source) FH: Thyroid disorder; Translations: [Family history of other endocrine, nutritional and metabolic diseases] Episodic Residual codes; unclassified (5 sources) Edema of foot; Translations: [Localized edema] 01-15-2025 Episodic Residual codes; unclassified (2 sources) Finding of neck region; Translations: [Other general symptoms and signs] 01-29-2025 Episodic Residual codes; unclassified (4 sources) History of operative procedure on shoulder; Translations: [Other specified postprocedural states] 04-14-2025 Episodic Residual codes; unclassified (1 source) Other specified postprocedural states; Translations: [Status post labral repair of shoulder] Onset: 07-07-2025 Episodic Screening and history of mental health and substance abuse codes (2 sources) Encounter for screening for depression; Translations: [Encounter for screening examination for other mental health and behavioral disorders] Onset: 05-27-2025 Episodic Syncope (3 sources) Syncope and collapse; Translations: [Syncope and collapse] Onset: 12-07-2023 02-21-2024 Episodic Unclassified (1 source) Animal-rider injured by fall from or being thrown from horse in noncollision accident, initial encounter 05-23-2022 Unclassified (1 source) Resistant hypertension; Translations: [Resistant hypertension] Onset: 01-29-2025 Unclassified (1 source) Insulin resistance; Translations: [Insulin resistance] Onset: 11-25-2024 Unclassified (1 source) POTS (postural orthostatic tachycardia syndrome); Translations: [POTS (postural orthostatic tachycardia syndrome)] Onset: 03-23-2025 Past or Other Problems Problem Classification Problem Date Documented Date Episodic/Chronic Cancer of cervix (20 sources) Atypical squamous cells of undetermined significance on cervical Papanicolaou smear; Translations: [Atypical squamous cells of undetermined significance on cytologic smear of cervix (ASC-US)] Onset: 03-13-2025 03-13-2025 Episodic Cardiac dysrhythmias (20 sources) Palpitations; Translations: [Palpitations] Onset: 12-07-2023 Episodic Conditions associated with dizziness or vertigo (13 sources) Lightheadedness; Translations: [Dizziness and giddiness] Onset: 01-29-2025 Episodic Contraceptive and procreative management (20 sources) Intrauterine contraceptive device in situ; Translations: [Presence of (intrauterine) contraceptive device] Onset: 03-03-2025 03-03-2025 Episodic E Codes: Transport; not MVT (20 sources) Animal-rider injured by fall from or being thrown from horse in noncollision accident, initial encounter; Translations: [Animal-rider injured by fall from or being thrown from horse in noncollision accident] Onset: 12-07-2023 12-07-2023 Episodic Fracture of upper limb (20 sources) Tabor's fracture; Translations: [Tabor's fracture, right hand, initial encounter for closed fracture] Onset: 06-18-2014 06-18-2014 Episodic Intracranial injury (20 sources) Concussion with less than 1 hour loss of consciousness; Translations: [Concussion with loss of consciousness of 30 minutes or less, initial encounter] Onset: 12-07-2023 Episodic Malaise and fatigue (20 sources) Fatigue; Translations: [Asthenia] Onset: 01-29-2025 01-15-2025 Episodic Other circulatory disease (1 source) Postural orthostatic tachycardia syndrome ; Translations: [Postural orthostatic tachycardia syndrome (POTS)] Onset: 04-01-2025 Episodic Other connective tissue disease (20 sources) Disorder of rotator cuff; Translations: [Unspecified disorder of synovium and tendon, right shoulder] Onset: 09-02-2024 08-15-2024 Episodic Other connective tissue disease (20 sources) Other symptoms and signs involving the musculoskeletal system; Translations: [Other musculoskeletal symptoms referable to limbs] Onset: 04-06-2025 04-06-2025 Episodic Other connective tissue disease (1 source) Unspecified disorder of synovium and tendon, right shoulder; Translations: [Disorder of right rotator cuff] Onset: 09-02-2024 Episodic Other injuries and conditions due to external causes (20 sources) Injury of knee; Translations: [Unspecified injury of right lower leg, initial encounter] Onset: 12-07-2023 12-07-2023 Episodic Other nervous system disorders (1 source) Other symptoms and signs involving cognitive functions and awareness; Translations: [Brain fog] Onset: 01-29-2025 Episodic Other non-traumatic joint disorders (4 sources) Pain in right shoulder; Translations: [Pain in joint, shoulder region] Onset: 04-06-2025 12-28-2023 Episodic Other non-traumatic joint disorders (20 sources) Chronic pain of right upper limb; Translations: [Pain in right shoulder] Onset: 04-06-2025 04-06-2025 Episodic Other non-traumatic joint disorders (20 sources) Decreased range of shoulder movement; Translations: [Stiffness of right shoulder, not elsewhere classified] Onset: 04-06-2025 04-06-2025 Episodic Other non-traumatic joint disorders (1 source) Other instability, right shoulder; Translations: [Instability of right shoulder joint] Onset: 08-11-2024 Episodic Other non-traumatic joint disorders (1 source) Stiffness of right shoulder, not elsewhere classified; Translations: [Decreased right shoulder range of motion] Onset: 04-06-2025 Episodic Other upper respiratory infections (20 sources) Acute frontal sinusitis; Translations: [Acute frontal sinusitis, unspecified] Onset: 12-07-2023 Episodic Residual codes; unclassified (1 source) Localized edema; Translations: [Pedal edema] Onset: 01-29-2025 Episodic Residual codes; unclassified (1 source) Other general symptoms and signs; Translations: [Sensation of swollen throat] Onset: 01-29-2025 Episodic Spondylosis; intervertebral disc disorders; other back problems (20 sources) Neck pain; Translations: [Cervicalgia] Onset: 04-23-2024 04-23-2024 Episodic Sprains and strains (20 sources) Strain of neck muscle; Translations: [Strain of muscle, fascia and tendon at neck level, initial encounter] Onset: 12-07-2023 Episodic Superficial injury; contusion (20 sources) Contusion of knee; Translations: [Contusion of trunk] Onset: 10-02-2018 10-02-2018 Episodic Unclassified (1 source) Problem Unclassified (1 source) Finding of neck region 01-29-2025 Unclassified (1 source) Patient encounter status 01-29-2025 Results Test Name Value Interpretation Reference Range [facility] (AGHWW1 ) MARICRUZ TEJADA ([id number]) 1 F Date Time Provider Department 07/07/25 1:00 PM NETO MCARTHUR [id number] During your visit today, we recorded the following information about you: Respiration Weight Height 16/minute 69.4 kg 1.575 m Khanh Chang Tech 07/07/2025 1:15 PM Signed REVIEW OF SYSTEMS: GENERAL: Well developed, well nourished. No acute distress PAIN: right shoulder pain CARDIOVASCULAR: Negative for chest pain, leg swelling and palpations. MSK: Negative for joint swelling SKIN: Negative for lesions, rash, itching, metal sensitivity NEURO: Negative for seizure, trauma, numbness/tingling of extremities. ENDOCRINE: Negative for diabetic associated symptoms HEMATOLOGY: Negative for excessive bleeding, clots, bleeding disorders. Neto Mcarthur MD 07/07/2025 1:15 PM Signed History: Maricruz Tejada is a 20 year old female who returns 3 months post labral repair of the Right shoulder. She is doing well. She quantitates the pain as 3/10. She denies chest pain, SOB, fever, chills, or drainage. No calf pain reported. She is taking Ibuprofen for pain management purposes. No numbness or tingling. No swelling. Physical Examination: She is alert and oriented and in no acute distress. The portals are well healed. No erythema or drainage noted. Passive supine FE is 170 degrees and passive ER is 65 degrees. Active FE is 120 degrees and active ER is 50 degrees. Active IR is T10 degrees. She exhibits good strength with ER at the side. Negative Peter?s. Good Rom of elbow and wrist noted. NVI distally. Assessment: Status post labral repair of shoulder (primary encounter diagnosis) Plan: She has completed their formal Phase II physical therapy program. They are to begin Phase III at this time. Restrictions were relayed to the patient. Ice as instructed. She is taking Ibuprofen for pain management purposes if necessary. They understand the risks and benefits of these medications and would like to proceed. Return for follow-up in 6 weeks. Will continue to monitor patient for Status post labral repair of shoulder (primary encounter diagnosis), patient to schedule visit as per follow up discussed. Neto Mcarthur MD Allergies As of Date: 07/07/2025 Noted Allergy Reaction CODEINE 07/03/2007 TRAMADOL 06/30/2014 9 - Itching 14 - Other: See Comments Comments: Dizziness Date Reviewed: 07/07/2025 Reviewed by: Khanh Chang Tech - Fully Assessed Reason for Visit: Post Op [174] Follow Up [171] Primary Visit Diagnosis:Status post labral repair of shoulder [Z98.890] Prescriptions as of 07/07/2025 - lisinopril (ZESTRIL) 20 mg tablet Take 1 tablet by mouth once daily. - PARoxetine (PAXIL) 10 mg tablet Take 1 tablet by mouth once daily. - dextroamphetamine-amphetami ne (ADDERALL) 5 mg tablet Take 1 tablet by mouth once daily for 30 days. - DULoxetine DR (CYMBALTA) 20 mg capsule Take 1 capsule by mouth once daily. - lamoTRIgine (LAMICTAL) 25 mg tablet Take 1 tablet by mouth two times a day. Start taking 25mg 1 tab daily x 14 days and then increase to 25mg twice daily - triamterene-hydroCHLOROthia zide (MAXZIDE) 75-50 mg per tablet Take 1 tablet by mouth once daily. - baclofen 10 mg tablet Take 1 tablet by mouth once daily as needed. - ondansetron (ZOFRAN) 4 mg tablet Take 1 tablet by mouth every 8 hours as needed. - metoprolol succinate ER (TOPROL XL) 100 mg Take 1.5 tablets by mouth once daily. - levonorgestrel (MIRENA) 21 mcg/24hr (up to 8 yrs) 52 mg IUD 1 Each by INTRAUTERINE route as directed. - tretinoin (RETIN-A) 0.025 % topical cream Mix 50/50 with moisturizer and apply to the affected areas of the face every night. - Azelaic Acid 15 % gel Apply a thin layer to the full face once daily in the morning - ubrogepant (UBRELVY) 100 mg tablet Take 1 tab at migraine onset. May repeat once in 2 hours as needed. - Cholecalciferol, Vitamin D3, 50 mcg (2,000 unit) cap Take 1 capsule by mouth once daily. - Norethindrone Acet-Ethinyl Est (,) 1-20 mg-mcg per tablet (Discontinued) Take 1 tablet by mouth once daily. Problem List As Of Date 07/07/2025 Noted Resolved Tabor's fracture of base of metacarpal of rig*06/18/2014 Exercise-induced asthma [J45.990] 10/10/2021 Hearing difficulty of left ear [H91.92] 03/26/2023 Acute pharyngitis, unspecified [J02.9] 12/07/2023 Diagnosed: 12/07/2023 Animal-rider injured by fall from or being thro*12/07/2023 Diagnosed: 12/07/2023 Abdominal contusion [S30.1XXA] 12/07/2023 Diagnosed: 12/07/2023 Concussion with brief (less than one hour) loss*12/07/2023 Diagnosed: 12/07/2023 Derangement of right knee [M23.91] 12/07/2023 Diagnosed: 12/07/2023 Knee injury [S89.90XA] 12/07/2023 Diagnosed: 12/07/2023 Sore throat [J02.9] 12/07/2023 Diagnosed: 12/07/2023 Strain of neck muscle [S16.1XX (more content not included)... Normal [facility] CNOVon 07-03-2025 CNOV Office Visit (FAMPWS ) MARICRUZ TEJADA ([id number]) 1 F Date Time Provider Department 07/03/25 7:00 AM ANNALISA PRESLEY During your visit today, we recorded the following information about you: Pulse Respiration Blood pressure Weight 76/minute 16/minute 120/86 69.6 kg Annalisa Presley APRN.SENIOR ACCOUNT CLERK 07/03/2025 8:16 AM Signed This is a 20 year old female who presents today with: Maricruz Tejada is a 20-year-old female with a history of ADD, POTS, depression, and migraines, presenting for management of ADD and depression. HISTORY OF PRESENT ILLNESS: ADD: - Previously managed with Adderall 5 mg daily, approximately 3-4 years ago. 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 Depression: - Currently taking Paxil daily and duloxetine 40 mg daily. - Reports severe depression and anxiety, with more pronounced lows. Feels she hasn't felt good for a year - Has been on duloxetine 40 mg for several months; previously on 60 mg but did not tolerate well. - Tried Zoloft in the past but discontinued due to excessive sweating. - On a waitlist for therapy with [place] POTS: - Diagnosed with POTS; experiences symptoms occasionally. - Monitors heart rate with a watch.. - Can tell when she hasn't had enough to drink and that affects it Migraines: - History of migraines. PAST MEDICAL HISTORY: PAST MEDICAL HISTORY Diagnosis Date Calculus of kidney Essential hypertension Migraine headache with aura PMDD (premenstrual dysphoric disorder) 2019 POTS (postural orthostatic tachycardia syndrome) borderline Rotator cuff dysfunction, right partial tear Syncope and collapse Tachycardia PAST SURGICAL HISTORY Procedure Laterality Date INSERTION OF IUD 10/24/2021 removed 09/14/2023 PAST SURGICAL HISTORY OF removal of renal calculi via lithotrypsy PAST SURGICAL HISTORY OF 06/24/2014 PCP of right thumb PAST SURGICAL HISTORY OF Right 04/03/2025 Shoulder arthroscopy with repair slap lesion UNLISTED PROCEDURE LACRIMAL SYSTEM 02/18/2004 DR WHEELER ALLERGIES Codeine and Tramadol MEDICATIONS Current Outpatient Medications Medication Sig triamterene-hydroCHLOROthia zide (MAXZIDE) 75-50 mg per tablet Take 1 tablet by mouth once daily. baclofen 10 mg tablet Take 1 tablet by mouth once daily as needed. ondansetron (ZOFRAN) 4 mg tablet Take 1 tablet by mouth every 8 hours as needed. metoprolol succinate ER (TOPROL XL) 100 mg Take 1.5 tablets by mouth once daily. levonorgestrel (MIRENA) 21 mcg/24hr (up to 8 yrs) 52 mg IUD 1 Each by INTRAUTERINE route as directed. tretinoin (RETIN-A) 0.025 % topical cream Mix 50/50 with moisturizer and apply to the affected areas of the face every night. Azelaic Acid 15 % gel Apply a thin layer to the full face once daily in the morning ubrogepant (UBRELVY) 100 mg tablet Take 1 tab at migraine onset. May repeat once in 2 hours as needed. Cholecalciferol, Vitamin D3, 50 mcg (2,000 unit) cap Take 1 capsule by mouth once daily. lisinopril (ZESTRIL) 20 mg tablet Take 1 tablet by mouth once daily. PARoxetine (PAXIL) 10 mg tablet Take 1 tablet by mouth once daily. dextroamphetamine-amphetami ne (ADDERALL) 5 mg tablet Take 1 tablet by mouth once daily for [address] (CYMBALTA) 20 mg capsule Take 1 capsule by mouth once daily. lamoTRIgine (LAMICTAL) 25 mg tablet Take 1 tablet by mouth two times a day. Start taking 25mg 1 tab daily x 14 days and then increase to 25mg twice daily No current facility-administered medications for this visit. FAMILY HISTORY Problem Relation Age of Onset Hypertension Mother Started in mid-30's Hypertension Father No Known Problems Sister No Known Problems Brother Hypertension Maternal Grandmother Hypertension Maternal Grandfather Lipids Maternal Grandfather other (FIBROMYALGIA) Paternal Grandmother SOCIAL HISTORY[1] REVIEW OF SYSTEMS Neurological: (+) migraine Psychiatric: (+) depressed mood, (+) anxiety, (+) mood swings See HPI EXAM: BP 120/86 (BP Site: Left Arm, BP Position: Sitting, BP Cuff Size: Regular Adult) Pulse 76 Resp 16 Wt 69.6 kg (153 lb 6.4 oz) LMP 02/24/2025 (Exact Date) BMI 28.06 kg/m? PHYSICAL EXAM: General Appearance: Well appearing, alert, in no acute distress, well-hydrated, well nourished.. Lungs: Lungs clear to auscultation. No wheezing, rhonchi, rales.. Heart: RRR without murmur, gallop, or rubs. No ectopy. ASSESSMENT/PLAN: 1. Depression, unspecified depression type - ICD9: 311, ICD10: F32.A (primary diagnosis)/ Anxiety 2. Stress - ICD9: V62.89, ICD10: F43.9 - PAROXETINE 10 MG TABLET continue, refilled - DULOXETINE 20 MG CAPSULE,DELAYED RELEASE- taper off and stop - LAMOTRIGINE 25 MG TABLET - start 25mg (more content not included)... Normal [facility] CNTHERAPYon 07-03-2025 CNTHERAPY OT/PT/Speech Visit ( AKPTG) MARICRUZ TEJADA ([id number]) 1 F Date Time Provider Department 07/03/25 10:15 AM MAYCO ROBLEDO Date Time Provider Department Center 07/03/2025 10:15 AM [id number] ROBLEDO [facility] Reason for Visit: Physical Therapy [503] Primary Visit Diagnosis:Chronic right shoulder pain [M25.511, G89.29] Other Visit Diagnoses:Weakness of right upper extremity [R29.898] Decreased right shoulder range of motion [M25.611] Allergies As of Date: 07/03/2025 Noted Allergy Reaction CODEINE 07/03/2007 TRAMADOL 06/30/2014 9 - Itching 14 - Other: See Comments Comments: Dizziness Date Reviewed: 07/03/2025 Reviewed by: Annalisa Presley APRN.SENIOR ACCOUNT CLERK - Fully Assessed Prescriptions as of 07/03/2025 - lisinopril (ZESTRIL) 20 mg tablet Take 1 tablet by mouth once daily. - PARoxetine (PAXIL) 10 mg tablet Take 1 tablet by mouth once daily. - dextroamphetamine-amphetami ne (ADDERALL) 5 mg tablet Take 1 tablet by mouth once daily for 30 days. - DULoxetine DR (CYMBALTA) 20 mg capsule Take 1 capsule by mouth once daily. - lamoTRIgine (LAMICTAL) 25 mg tablet Take 1 tablet by mouth two times a day. Start taking 25mg 1 tab daily x 14 days and then increase to 25mg twice daily - triamterene-hydroCHLOROthia zide (MAXZIDE) 75-50 mg per tablet Take 1 tablet by mouth once daily. - baclofen 10 mg tablet Take 1 tablet by mouth once daily as needed. - ondansetron (ZOFRAN) 4 mg tablet Take 1 tablet by mouth every 8 hours as needed. - metoprolol succinate ER (TOPROL XL) 100 mg Take 1.5 tablets by mouth once daily. - levonorgestrel (MIRENA) 21 mcg/24hr (up to 8 yrs) 52 mg IUD 1 Each by INTRAUTERINE route as directed. - tretinoin (RETIN-A) 0.025 % topical cream Mix 50/50 with moisturizer and apply to the affected areas of the face every night. - Azelaic Acid 15 % gel Apply a thin layer to the full face once daily in the morning - ubrogepant (UBRELVY) 100 mg tablet Take 1 tab at migraine onset. May repeat once in 2 hours as needed. - Cholecalciferol, Vitamin D3, 50 mcg (2,000 unit) cap Take 1 capsule by mouth once daily. - Norethindrone Acet-Ethinyl Est (JUNE12/08, ,) 1-20 mg-mcg per tablet (Discontinued) Take 1 tablet by mouth once daily. Sports Director: Addendum Therapy (PT/OT/Speech/Resp) ID: [id number] 07/03/2025 10:53 AM Author: MAYCO ROBLEDO Signed by MAYCO ROBLEDO BEEHIVE KILN SUPERVISOR on 07/03/2025 at 10:53 AM * * * This document replaces document [id number] * * * Document text: Program_ID:[id number] Access Code: [email or web address] URL: [email or web address] Date: 07-03-2025 Prepared By: Luis Enrique Sears Program Notes Exercises - Shoulder External Rotation with Anchored Resistance - 1 x daily - 3 x weekly - 3 sets - 10 reps - Standing Shoulder Internal Rotation with Anchored Resistance - 1 x daily - 3 x weekly - 3 sets - 10 reps - Standing Single Arm Elbow Flexion with Resistance - 1 x daily - 3 x weekly - 3 sets - 10 reps - Standing Elbow Extension with Self-Anchored Resistance - 1 x daily - 3 x weekly - 3 sets - 10 reps - cc Sidelying Shoulder Abduction with Dumbbell - 1 x daily - 3 x weekly - 3 sets - 10 reps - Shoulder Flexion Wall Slide with Towel - 1 x daily - 3 x weekly - 3 sets - 10 reps - Sidelying Shoulder Abduction Palm Forward - x daily - 3-4 x weekly - 2-3 sets - 10 reps - Standing Row with Anchored Resistance - x daily - 3-4 x weekly - 3 sets - 10 reps Normal [facility] THERAPY NTon 07-03-2025 THERAPY NT HNO ID: [id number] Author: MAYCO ROBLEDO PTA Service: ? Author Type: Corrugator Operator Type: Therapy (PT/OT/Speech/Resp) Filed: 07/03/2025 10:53 Note Text: Program_ID:[id number] Access Code: [email or web address] URL: [email or web address]/ Date: 07-03-2025 Prepared By: Luis Enrique Sears Program Notes Exercises - Shoulder External Rotation with Anchored Resistance - 1 x daily - 3 x weekly - 3 sets - 10 reps - Standing Shoulder Internal Rotation with Anchored Resistance - 1 x daily - 3 x weekly - 3 sets - 10 reps - Standing Single Arm Elbow Flexion with Resistance - 1 x daily - 3 x weekly - 3 sets - 10 reps - Standing Elbow Extension with Self-Anchored Resistance - 1 x daily - 3 x weekly - 3 sets - 10 reps - cc Sidelying Shoulder Abduction with Dumbbell - 1 x daily - 3 x weekly - 3 sets - 10 reps - Shoulder Flexion Wall Slide with Towel - 1 x daily - 3 x weekly - 3 sets - 10 reps - Sidelying Shoulder Abduction Palm Forward - x daily - 3-4 x weekly - 2-3 sets - 10 reps - Standing Row with Anchored Resistance - x daily - 3-4 x weekly - 3 sets - 10 reps Normal [facility] CNTHERAPYon 06-17-2025 CNTHERAPY OT/PT/Speech Visit ( AKPTG) MARICRUZ TEJADA ([id number]) 1 F Date Time Provider Department 06/17/25 7:45 AM LUIS ENRIQUE SEARS Date Time Provider Department Center 06/17/2025 7:45 AM [id number] ENRIQUE SEARS [facility] Reason for Visit: PT Progress Note [7446] Primary Visit Diagnosis:Chronic right shoulder pain [M25.511, G89.29] Other Visit Diagnoses:Weakness of right upper extremity [R29.898] Decreased right shoulder range of motion [M25.611] Allergies As of Date: 06/17/2025 Noted Allergy Reaction CODEINE 07/03/2007 TRAMADOL 06/30/2014 9 - Itching 14 - Other: See Comments Comments: Dizziness Date Reviewed: 06/01/2025 Reviewed by: Vivian Taylor MA - Fully Assessed Prescriptions as of 06/17/2025 - DULoxetine (CYMBALTA) 40 mg cpDR Take 1 capsule by mouth once daily. - baclofen 10 mg tablet Take 1 tablet by mouth once daily as needed. - ondansetron (ZOFRAN) 4 mg tablet Take 1 tablet by mouth every 8 hours as needed. - metoprolol succinate ER (TOPROL XL) 100 mg Take 1.5 tablets by mouth once daily. - triamterene-hydroCHLOROthia zide (MAXZIDE) 75-50 mg per tablet Take 1 tablet by mouth once daily. - levonorgestrel (MIRENA) 21 mcg/24hr (up to 8 yrs) 52 mg IUD 1 Each by INTRAUTERINE route as directed. - lisinopril (ZESTRIL) 20 mg tablet Take 1 tablet by mouth once daily. - tretinoin (RETIN-A) 0.025 % topical cream Mix 50/50 with moisturizer and apply to the affected areas of the face every night. - Azelaic Acid 15 % gel Apply a thin layer to the full face once daily in the morning - PARoxetine (PAXIL) 10 mg tablet Take 1 tablet by mouth once daily. - ubrogepant (UBRELVY) 100 mg tablet Take 1 tab at migraine onset. May repeat once in 2 hours as needed. - Cholecalciferol, Vitamin D3, 50 mcg (2,000 unit) cap Take 1 capsule by mouth once daily. - Norethindrone Acet-Ethinyl Est (JUNE12/08, ,) 1-20 mg-mcg per tablet (Discontinued) Take 1 tablet by mouth once daily. Sports Director: Addendum Therapy (PT/OT/Speech/Resp) ID: [id number] 06/17/2025 8:18 AM Author: LUIS ENRIQUE SEARS Signed by LUIS ENRIQUE SEARS PT on 06/17/2025 at 8:18 AM * * * This document replaces document [id number] * * * Document text: Program_ID:[id number] Access Code: [email or web address] URL: [email or web address] Date: 06-17-2025 Prepared By: Luis Enrique Sears Program Notes Exercises - Shoulder External Rotation with Anchored Resistance - 1 x daily - 3 x weekly - 3 sets - 10 reps - Standing Shoulder Internal Rotation with Anchored Resistance - 1 x daily - 3 x weekly - 3 sets - 10 reps - Standing Single Arm Elbow Flexion with Resistance - 1 x daily - 3 x weekly - 3 sets - 10 reps - Standing Elbow Extension with Self-Anchored Resistance - 1 x daily - 3 x weekly - 3 sets - 10 reps - cc Sidelying Shoulder Abduction with Dumbbell - 1 x daily - 3 x weekly - 3 sets - 10 reps - Shoulder Flexion Wall Slide with Towel - 1 x daily - 3 x weekly - 3 sets - 10 reps Normal [facility] THERAPY NTon 06-17-2025 THERAPY NT HNO ID: [id number] Author: LUIS ENRIQUE SEARS PT Service: Physical Therapy Author Type: Physical Therapist Type: Therapy (PT/OT/Speech/Resp) Filed: 06/17/2025 08:18 Note Text: Program_ID:[id number] Access Code: [email or web address] URL: [email or web address] Date: 06-17-2025 Prepared By: Luis Enrique Sears Program Notes Exercises - Shoulder External Rotation with Anchored Resistance - 1 x daily - 3 x weekly - 3 sets - 10 reps - Standing Shoulder Internal Rotation with Anchored Resistance - 1 x daily - 3 x weekly - 3 sets - 10 reps - Standing Single Arm Elbow Flexion with Resistance - 1 x daily - 3 x weekly - 3 sets - 10 reps - Standing Elbow Extension with Self-Anchored Resistance - 1 x daily - 3 x weekly - 3 sets - 10 reps - cc Sidelying Shoulder Abduction with Dumbbell - 1 x daily - 3 x weekly - 3 sets - 10 reps - Shoulder Flexion Wall Slide with Towel - 1 x daily - 3 x weekly - 3 sets - 10 reps Normal [facility] 06-12-2025 Indication DUB with IUD Impression Normal appearing retroverted uterus that measures 70 mm x 28 mm x 48 mm. Endometrium measures 3 mm. Normal endometrial contour. 3D rendering of the uterus confirms the proper location of the IUD within the endometrial cavity. Both ovaries are visualized and appear normal with follicular change. No adnexal masses were observed. There is no free fluid visualized in the peritoneal cavity. Recommendations Follow up as clinically indicated. Method Transabdominal and transvaginal ultrasound examination, 3D ultrasound examination. Color Doppler examination. View: Adequate visualization Uterus Uterus: Visualized Uterus position: retroverted Description of uterine malformations: normally shaped Myometrium: normal Endometrium: endometrial midline: linear Cervix details: normal Uterus length 70 mm Uterus width 48 mm Uterus height 28 mm Uterus Vol 48.5 cm Endometrial thickness, total 3.0 mm IUCD Position control IUCD type: Mirena intrauterine system. Location: positioned correctly at the fundus of the uterus Right Ovary Rt ovary: Visualized Outline: smooth Rt ovary morphology: premenopausal normal follicular Rt ovary D1 30 mm Rt ovary D2 27 mm Rt ovary D3 23 mm Rt ovary Vol 9.6 cm Left Ovary Lt ovary: Visualized Outline: smooth Lt ovary morphology: premenopausal normal follicular Lt ovary D1 22 mm Lt ovary D2 21 mm Lt ovary D3 13 mm Lt ovary Vol 3.1 cm Cul de Sac Visualized. no free fluid visualized Performed By: Rosemarie Acosta RDMS Read By: Brianna García M.D. MATERNAL MEDICINE [facility] US [place] 06-11-2025 Radiology Study observation (narrative) [facility] CNOVon 06-01-2025 CNOV Office Visit (OBGYWM ) MARICRUZ TEJADA ([id number]) 1 F Date Time Provider Department 06/01/25 2:00 PM TINA POWER OBGYWM During your visit today, we recorded the following information about you: Blood pressure Weight 120/80 70.3 kg Tina Power MD 06/01/2025 2:13 PM Signed Eeg Tech offered: Patient declines. Maricruz Tejada is a 19 year old female who presents for problem visit - possible . HPI: Has the IUD and has had irregular bleeding ever since placement. Has had 15 days of bleeding. She describes the bleeding as light today. Was previously similar to a heavier period. No pelvic pain. 1 week ago she had a positive test followed by two negatives. Sexually active with condoms. 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 History Comments: Sexual Activity: Yes; Male Contraception: No contraception data on record PAST MEDICAL HISTORY Diagnosis Date Calculus of kidney Essential hypertension Migraine headache with aura PMDD (premenstrual dysphoric disorder) 2019 POTS (postural orthostatic tachycardia syndrome) borderline Rotator cuff dysfunction, right partial tear Syncope and collapse Tachycardia PAST SURGICAL HISTORY Procedure Laterality Date INSERTION OF IUD 10/24/2021 removed 09/14/2023 PAST SURGICAL HISTORY OF removal of renal calculi via lithotrypsy PAST SURGICAL HISTORY OF 06/24/2014 PCP of right thumb PAST SURGICAL HISTORY OF Right 04/03/2025 Shoulder arthroscopy with repair slap lesion UNLISTED PROCEDURE LACRIMAL SYSTEM 02/18/2004 DR WHEELER FAMILY HISTORY Problem Relation Age of Onset Hypertension Mother Started in mid-30's Hypertension Father No Known Problems Sister No Known Problems Brother Hypertension Maternal Grandmother Hypertension Maternal Grandfather Lipids Maternal Grandfather other (FIBROMYALGIA) Paternal Grandmother Social History Tobacco Use Smoking status: Never Smokeless tobacco: Never Vaping Use Vaping status: Never Used Substance Use Topics Alcohol use: No Drug use: No Current Outpatient Medications Medication Sig DULoxetine (CYMBALTA) 40 mg cpDR Take 1 capsule by mouth once daily. baclofen 10 mg tablet Take 1 tablet by mouth once daily as needed. ondansetron (ZOFRAN) 4 mg tablet Take 1 tablet by mouth every 8 hours as needed. metoprolol succinate ER (TOPROL XL) 100 mg Take 1.5 tablets by mouth once daily. triamterene-hydroCHLOROthia zide (MAXZIDE) 75-50 mg per tablet Take 1 tablet by mouth once daily. levonorgestrel (MIRENA) 21 mcg/24hr (up to 8 yrs) 52 mg IUD 1 Each by INTRAUTERINE route as directed. lisinopril (ZESTRIL) 20 mg tablet Take 1 tablet by mouth once daily. tretinoin (RETIN-A) 0.025 % topical cream Mix 50/50 with moisturizer and apply to the affected areas of the face every night. Azelaic Acid 15 % gel Apply a thin layer to the full face once daily in the morning PARoxetine (PAXIL) 10 mg tablet Take 1 tablet by mouth once daily. ubrogepant (UBRELVY) 100 mg tablet Take 1 tab at migraine onset. May repeat once in 2 hours as needed. Cholecalciferol, Vitamin D3, 50 mcg (2,000 unit) cap Take 1 capsule by mouth once daily. No current facility-administered medications for this visit. Allergies As of Date: 06/01/2025 Allergen Noted Reaction CODEINE 07/03/2007 TRAMADOL 06/30/2014 Itching and Other: See Comments Fully Assessed 05/28/2025 REVIEW OF SYSTEMS Expanded ROS: See HPI Allergies and current medication updated:Yes SENSITIVE EXAM: The sensitive examination was discussed with the Patient or Patient's Authorized Other Sports Official. As applicable, any other physician, advance practice provider, medical student, or other health professional student that will be observing or involved in the sensitive examination for educational or training purposes was discussed with the Patient or Authorized Other Sports Official. The Patient or Authorized Other Sports Official has agreed to proceed with the sensitive examination. (Sensitive examination includes inspection and/or palpation of the breasts, pelvis, prostate and anorectal regions). EXAM: LMP 02/24/2025 GENERAL: pleasant, female in no apparent distress HEENT: Normocephalic and atraumatic CHEST: Normal inspiratory effort ABDOMEN: soft, non-tender, and no masses PELVIC: external genitalia normal, normal Bartholin's glands, urethra, [place]'s glands, no vulvar lesions, no cervical lesions, good vaginal support, physiologic discharge present, normal appearing perineal body and perianal region, IUD strings visible BIMANUAL: uterus normal size, shape and consistency, no adnexal masses, non-tender, and no cervical motion tenderness NEURO: (more content not included)... 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 (POCT) Internal QC OK [facility] Location:[facility], [address], [place], [address] [facility] POINT OF CARE [facility] CNOVon 05-28-2025 CNOV Office Visit (NHFB) MARICRUZ TEJADA ([id number]) 1 F Date Time Provider Department 05/28/25 8:30 AM JAQUELINE CARDONA [facility] During your visit today, we recorded the following information about you: Pulse Blood pressure Weight 76/minute 134/89 69.9 kg Jaqueline Cardona APRN.SENIOR ACCOUNT CLERK 05/28/2025 9:02 AM Signed [facility] Follow-up Visit Miscellaneous Patient Concerns: Good improvement following initial Botox as shown below. Starting to wear off over the past few weeks. Feels her jaw plays a role, interested in adding masseter injections today. Impression: Chronic migraine without aura, intractable, without status migrainosus (primary encounter diagnosis) Follow-Up Onabotulinum Toxin A (BotoxTM) for Migraine Indication: Chronic Intractable Migraine Treatment #: 2 Referral Expiration: 07/08/2025 Prior to the initiation of the FIRST treatment with Onabotulinum Toxin A, the patient reported the following average headache frequency over the past 3 MONTHS: Number of moderate-severe migraine days/month: 20 Number of mild migraine days/month: 10 Number of headache free days/month: 0 (0 headache-free hours) Migraine severity: 10/10 After treatment with Onabotulinum Toxin A: Number of moderate-severe migraine days/month: 8 Number of mild migraine days/month: 7 Number of headache free days/month: 15 (360 headache-free hours) Patient reduction in overall migraine days: Yes Patient reduction in moderate-severe migraine days: Yes Patient reduction of headache hours by 100 hours or more: Yes (reduction of 360 hours) Individual has obtained clinical benefit deemed significant by individual or prescriber (Y/N): Yes Patient's quality of life and ability to perform ADLs has improved (Y/N): Yes Side effects: none Wearing off: Yes The patient has been assessed for disorders which could contribute to breathing or swallowing difficulty, and there is no contraindication with PREEMPT Botox. There is no documented allergic reaction/hypersensitivity to any botulinum toxin and there is no active infection at proposed injection site. HEADACHE SCORES: 04/23/2024 Headache Questions ID Migraine Screener: 3 (Positive) ER visits in the last year: 0 Hospital stays in the last year: 0 Limited ADLs in the last month: 15 Days missed from work or school in the last month: 3 Days headache pain free in the last month: 15 Days per month with ALL of the following symptoms - decreased productivity, light sensitivity and nausea: 8 PRN medication usage in the last month: 15 04/23/2024 HIT-6 HIT-6 67 (Severe impact) 04/23/2024 OCTAVIO - 2/7 SCORES OCTAVIO-2 Score 1 04/23/2024 Migraine Specific QOL - Higher scores indicate better HRQL Role Function-Restrictive Transformed Score (range: 0-100) 34.29 Role Function-Preventive Transformed Score (range: 0-100) 45 Emotional Function Transformed Score (range: 0-100) 53.33 04/23/2024 PHQ-9 Score 12 BP 134/89 Pulse 76 Wt 69.9 kg (154 lb) LMP 02/24/2025 (Exact Date) BMI 28.17 kg/m? Patient name: Maricruz Tejada : 2005 ALLERGIES Allergen Reactions Codeine Tramadol Itching, Other: See Comments Dizziness UNIVERSAL PROTOCOL / SAFETY CHECKLIST Procedure: Onabotulinum toxin A for migraine Informed Consent Consent Obtained: Written [place] Protocol A moment to CARE was completed SIGN IN Personnel directly involved with the procedure wore the appropriate PPE Special Equipment: N/A Patient/Surrogate Stated/Verified: Patient name, Date of , Relevant allergies and Intended procedure TIME OUT No relevant labs, photos, and/or imaging studies were applicable for review. Consent documented and matches the intended procedure No correct side/site applicable for marking and visibility. No medications required for procedure. No fire risk assessment and interventions applicable. No implant(s) inserted. SIGN OUT No specimen collected. Written Consent Obtained: Written LOT #: [id number] Expiration Date: Month: : 2026 Second vial: LOT #: [id number] Expiration Date: Month: : 2026 Injection Sites Left (Units) Left (Sites) Right (Units) Right (Sites) TOTAL (Units) Bartacker 5 1 5 1 10 Procerus Units: 5 Sites: 1 5 Frontalis 10 2 10 2 20 Temporalis optional follow the pain 20 5 4 1 20 5 4 1 50 Occipitalis optional follow the pain 15 5 3 1 15 5 3 1 40 Cervical PSP 10 2 10 2 20 Trapezius optional follow the pain 15 7.5 3 2 15 7.5 3 2 45 Masseter 5 1 5 1 10 Total Units used: 200 Total Units wasted: 0 Patient tolerated procedure well. Prior Therapies Duration of Use Dose Side effect Analgesic Hydrocodone/Acetaminophen (Vicodin, [place]) Tramadol (Ultram) Anti-Anxiety Buspirone (Buspar) Anti-Depressant and Antipsychotic Bupropion (Wellbutrin) Duloxetine (Cymbalta) Par (more content not included)... Normal [facility] Bacteria Ur Culton 5 Bacteria identified Cx Nom (U) ORGANISM ID: 1 >=100,000 CFU/ml Normal urogenital mindy Normal [facility] Comment on above: Performed By: #### 2 [id number] #### [facility] CLIA [id number] [address] [place] [address] STATES OF [facility] CNOVon 05-27-2025 CNOV Office Visit (BRENDAWS ) MARICRUZ TEJADA ([id number]) 1 F Date Time Provider Department 05/27/25 6:00 PM ANNALISA PRESLEY During your visit today, we recorded the following information about you: Pulse Respiration Blood pressure Weight 71/minute 12/minute 128/90 70 kg Annalisa Presley APRN.SENIOR ACCOUNT CLERK 05/27/2025 6:28 PM Signed This is a 19 year old female who presents today with: Med check ASSESSMENT/PLAN: 1. Brain fog - ICD9: 799.59, ICD10: R41.89 (primary diagnosis) Decrease Cymbalta regimen to 30 mg daily. Continue paxil as prescribed. Reach out in 4-6 weeks if wanting to decrease Cymbalta more. Pt aware of needing gradual taper if wanting to decrease more. Discussed importance of taking routinely. - DULOXETINE 30 MG CAPSULE,DELAYED RELEASE 2. Depression, unspecified depression type - ICD9: 311, ICD10: F32.A See above. - DULOXETINE 30 MG CAPSULE,DELAYED RELEASE HISTORY OF PRESENT ILLNESS: Depression: - Recent decrease in Cymbalta dosage due to brain fog. - Currently taking Paxil 10 mg. - Experienced severe depression during recent menstrual period, described as non-stop crying and feeling upset the whole time. - Took Cymbalta 60 mg (borrowed from mother) for a few days during this period, which improved symptoms but caused gastrointestinal upset. - Used leftover Zofran for nausea with relief. - Reports feeling a lot happier before the onset of menstruation and improved brain fog - Over the last two weeks, felt down, depressed, or hopeless for about five days. - No suicidal ideation. - [place] nervous, anxious, or on edge for 2-3 days in the past two weeks. - Able to stay busy and maintain interest in activities. - Working light duty now d/t shoulder surgery in March Dysuria: - Maricruz suspects UTI; experiencing urinary frequency and incomplete emptying. - Mild, intermittent suprapubic and back pain. - History of UTIs, previously managed with Azo. - Denies fever, chills PAST MEDICAL HISTORY: PAST MEDICAL HISTORY Diagnosis Date Calculus of kidney Essential hypertension Migraine headache with aura PMDD (premenstrual dysphoric disorder) 2019 POTS (postural orthostatic tachycardia syndrome) borderline Rotator cuff dysfunction, right partial tear Syncope and collapse Tachycardia PAST SURGICAL HISTORY Procedure Laterality Date INSERTION OF IUD 10/24/2021 removed 09/14/2023 PAST SURGICAL HISTORY OF removal of renal calculi via lithotrypsy PAST SURGICAL HISTORY OF 06/24/2014 PCP of right thumb PAST SURGICAL HISTORY OF Right 04/03/2025 Shoulder arthroscopy with repair slap lesion UNLISTED PROCEDURE LACRIMAL SYSTEM 02/18/2004 DR WHEELER ALLERGIES Codeine and Tramadol MEDICATIONS Current Outpatient Medications Medication Sig baclofen 10 mg tablet Take 1 tablet by mouth once daily as needed. ondansetron (ZOFRAN) 4 mg tablet Take 1 tablet by mouth every 8 hours as needed. metoprolol succinate ER (TOPROL XL) 100 mg Take 1.5 tablets by mouth once daily. levonorgestrel (MIRENA) 21 mcg/24hr (up to 8 yrs) 52 mg IUD 1 Each by INTRAUTERINE route as directed. tretinoin (RETIN-A) 0.025 % topical cream Mix 50/50 with moisturizer and apply to the affected areas of the face every night. Azelaic Acid 15 % gel Apply a thin layer to the full face once daily in the morning ubrogepant (UBRELVY) 100 mg tablet Take 1 tab at migraine onset. May repeat once in 2 hours as needed. Cholecalciferol, Vitamin D3, 50 mcg (2,000 unit) cap Take 1 capsule by mouth once daily. DULoxetine (CYMBALTA) 40 mg cpDR Take 1 capsule by mouth once daily. triamterene-hydroCHLOROthia zide (MAXZIDE) 75-50 mg per tablet Take 1 tablet by mouth once daily. lisinopril (ZESTRIL) 20 mg tablet Take 1 tablet by mouth once daily. PARoxetine (PAXIL) 10 mg tablet Take 1 tablet by mouth once daily. Current Facility-Administered Medications Medication Dose Route Frequency [START ON 05/28/2025] onabotulinum toxin type A 200 Units injection (BOTOX) 200 Units INTRAMUSCULAR ONCE FAMILY HISTORY Problem Relation Age of Onset Hypertension Mother Started in mid-30's Hypertension Father No Known Problems Sister No Known Problems Brother Hypertension Maternal Grandmother Hypertension Maternal Grandfather Lipids Maternal Grandfather other (FIBROMYALGIA) Paternal Grandmother Social History Tobacco Use Smoking status: Never Smokeless tobacco: Never Vaping Use Vaping status: Never Used Substance Use Topics Alcohol use: No Drug use: No REVIEW OF SYSTEMS Constitutional: (-) fever Gastrointestinal: (+) nausea Genitourinary: (+) urinary frequency, (+) dysuria, (+) suprapubic pain Musculoskeletal: (+) back pain Psychiatric: (+) depressed mood, (+) anxiety, (-) anhedonia, (-) suicidal ideation See HPI EXAM: BP 128/90 (BP Site: Left Arm, BP Position: Sitting, BP (more content not included)... Normal [facility] UA DIP, URINE (POC)on 2024 BILIRUBIN UA (POCT) Negative Negative [facility] CLARITY UA (POCT) Slightly Cloudy Cl [facility] COLOR UA (POCT) Other [facility] GLUCOSE UA (POCT) Negative Negative mg/dL [facility] Hemoglobin Ql (U) Moderate Abnormal Negative [facility] Interpretation and review of laboratory results Abnormal [facility] KETONE UA (POCT) Negative Negative mg/dL [facility] LEUKOCYTES UA (POCT) Negative Negative [facility] NITRITE UA (POCT) Negative Negative [facility] PH UA (POCT) 6 4.5 - 8.0 [facility] Protein Ql (U) Negative Negative mg/dL [facility] SPECIFIC GRAVITY UA (POCT) >=1.030 1.005 - 1.030 [facility] UROBILINOGEN UA (POCT) 1 Normal E.U./dL [facility] Location:[address], [place], [place], [id number] [place] [address] POINT OF CARE [facility] CNOVon 05-19-2025 CNOV Office Visit (AGHWW1 ) MARICRUZ TEJADA ([id number]) 1 F Date Time Provider Department 05/19/25 9:00 AM NETO MCARTHUR [id number] During your visit today, we recorded the following information about you: Respiration Weight Height 16/minute 71.7 kg 1.575 m Neto Mcarthur MD 05/19/2025 9:23 AM Signed History: Maricruz Tejada is a 19 year old female who returns 6 weeks post labral repair of the Right shoulder. She is doing well. She quantitates the pain as 1/10. She denies chest pain, SOB, fever, chills, or drainage. No calf pain reported. She is taking Advil for pain management purposes. Physical Examination: She is alert and oriented and in no acute distress. The portals are well healed. No erythema or drainage noted. Passive supine FE is 165 degrees and passive ER is 65 degrees. Negative Peter?s. Good Rom of elbow and wrist noted. NVI distally. Assessment: Status post labral repair of shoulder (primary encounter diagnosis) Plan: She has completed their formal Phase I physical therapy program. They are to begin Phase II at this time. They can discontinue the sling but restrictions were relayed to the patient. They may drive but only if comfortable behind a wheel. Ice as instructed. She is taking Advil for pain management purposes if necessary. They understand the risks and benefits of these medications and would like to proceed. Return for follow-up in 6 weeks. Neto Mcarthur MD Referring Provider: SELF [200] Allergies As of Date: 05/19/2025 Noted Allergy Reaction CODEINE 07/03/2007 TRAMADOL 06/30/2014 9 - Itching 14 - Other: See Comments Comments: Dizziness Date Reviewed: 05/19/2025 Reviewed by: Khanh Chang Tech - Fully Assessed Reason for Visit: Post Op [174] Follow Up [171] Primary Visit Diagnosis:Status post labral repair of shoulder [Z98.890] Order(s):CONSULT TO PHYSICAL THERAPY [9091] Order #: [id number]: 1 FUTURE Prescriptions as of 05/19/2025 - amoxicillin-clavulanate potassium (AUGMENTIN) 875-125 mg per tablet Take 1 tablet by mouth two times a day for 10 days. - benzonatate (TESSALON PERLE) 100 mg capsule Take 1 capsule by mouth three times a day as needed for cough for up to 7 days. - DULoxetine (CYMBALTA) 30 mg capsule Take 1 capsule by mouth once daily. - baclofen 10 mg tablet Take 1 tablet by mouth once daily as needed. - ondansetron (ZOFRAN) 4 mg tablet Take 1 tablet by mouth every 8 hours as needed. - metoprolol succinate ER (TOPROL XL) 100 mg Take 1.5 tablets by mouth once daily. - triamterene-hydroCHLOROthia zide (MAXZIDE) 75-50 mg per tablet Take 1 tablet by mouth once daily. - levonorgestrel (MIRENA) 21 mcg/24hr (up to 8 yrs) 52 mg IUD 1 Each by INTRAUTERINE route as directed. - lisinopril (ZESTRIL) 20 mg tablet Take 1 tablet by mouth once daily. - tretinoin (RETIN-A) 0.025 % topical cream Mix 50/50 with moisturizer and apply to the affected areas of the face every night. - Azelaic Acid 15 % gel Apply a thin layer to the full face once daily in the morning - PARoxetine (PAXIL) 10 mg tablet Take 1 tablet by mouth once daily. - ubrogepant (UBRELVY) 100 mg tablet Take 1 tab at migraine onset. May repeat once in 2 hours as needed. - Cholecalciferol, Vitamin D3, 50 mcg (2,000 unit) cap Take 1 capsule by mouth once daily. - Norethindrone Acet-Ethinyl Est (,) 1-20 mg-mcg per tablet (Discontinued) Take 1 tablet by mouth once daily. Problem List As Of Date 05/19/2025 Noted Resolved Tabor's fracture of base of metacarpal of rig*06/18/2014 Exercise-induced asthma [J45.990] 10/10/2021 Hearing difficulty of left ear [H91.92] 03/26/2023 Acute pharyngitis, unspecified [J02.9] 12/07/2023 Diagnosed: 12/07/2023 Animal-rider injured by fall from or being thro*12/07/2023 Diagnosed: 12/07/2023 Abdominal contusion [S30.1XXA] 12/07/2023 Diagnosed: 12/07/2023 Concussion with brief (less than one hour) loss*12/07/2023 Diagnosed: 12/07/2023 Derangement of right knee [M23.91] 12/07/2023 Diagnosed: 12/07/2023 Knee injury [S89.90XA] 12/07/2023 Diagnosed: 12/07/2023 Sore throat [J02.9] 12/07/2023 Diagnosed: 12/07/2023 Strain of neck muscle [S16.1XXA] 12/07/2023 Diagnosed: 12/07/2023 Strain of right rotator cuff capsule [S46.011A] 12/07/2023 Diagnosed: 12/07/2023 Autonomic dysfunction [G90.9] 02/21/2024 Hypertension, essential [I10] 02/21/2024 Cervicalgia [M54.2] 04/23/2024 Migraine without aura and without status migrai*04/23/2024 Intractable chronic migraine without aura and w*04/23/2024 Disorder of right rotator cuff [M67.911] 09/02/2024 IUD (intrauterine device) in place [Z97.5] 03/03/2025 Atypical squamous cell changes of undetermined *03/13/2025 Preop examination [Z01.818] 03/23/2025 Superior glenoid labrum lesion of right shoulde*03/23/2025 POTS (postural orthostatic tachycardia syndrome* (more content not included)... Normal [facility] CNOVon 05-15-2025 CN Office Visit (UCWSTR ) MARICRUZ TEJADA ([id number]) 1 F Date Time Provider Department 05/15/25 8:15 AM HAYLEY LOZOYA [facility] During your visit today, we recorded the following information about you: Temperature Pulse Respiration Blood pressure 97.1 degrees 69/minute 18/minute 129/90 Weight 71.9 kg Hayley Lozoya PA-C 05/15/2025 8:41 AM Signed This note was created using NoteWriter. Subjective Maricruz Tejada is a 19 year old female. Patient is a 19-year-old female who complains of worsening congestion, sinus pressure, ear pain, sore throat and cough that she has been experiencing for the past 1 week. Patient reports no fever, chills or myalgia. Patient does work at 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 Review of Systems HENT: Positive for congestion, ear pain, postnasal drip, sinus pressure and sore throat. Respiratory: Positive for cough. All other systems reviewed and are negative. Objective BP 129/90 Pulse 69 Temp 36.2 ?C (97.1 ?F) Resp 18 Wt 71.9 kg (158 lb 8.2 oz) LMP 02/24/2025 (Exact Date) SpO2 100% BMI 28.99 kg/m? Physical Exam Vitals and nursing note reviewed. Constitutional: Appearance: Normal appearance. She is normal weight. HENT: Head: Normocephalic and atraumatic. Right Ear: Tympanic membrane, ear canal and external ear normal. Left Ear: Tympanic membrane, ear canal and external ear normal. Nose: Congestion present. Mouth/Throat: Mouth: Mucous membranes are moist. Pharynx: Oropharynx is clear. Eyes: Extraocular Movements: Extraocular movements intact. Conjunctiva/sclera: Conjunctivae normal. Pupils: Pupils are equal, round, and reactive to light. Cardiovascular: Rate and Rhythm: Normal rate and regular rhythm. Pulses: Normal pulses. Heart sounds: Normal heart sounds. Pulmonary: Effort: Pulmonary effort is normal. Breath sounds: Normal breath sounds. Musculoskeletal: Cervical back: Normal range of motion and neck supple. Skin: General: Skin is warm and dry. Capillary Refill: Capillary refill takes less than 2 seconds. Neurological: General: No focal deficit present. Mental Status: She is alert and oriented to person, place, and time. Psychiatric: Mood and Affect: Mood normal. Behavior: Behavior normal. Thought Content: Thought content normal. Judgment: Judgment normal. Assessment and Plan Physical exam findings as noted above. Patient was provided with prescriptions for Augmentin 875-125 mg and Tessalon 100 mg. Supportive care instructions were discussed the patient verbalizes excellent understanding of same. CLINICAL IMPRESSION: Acute Sinusitis ASSESSMENT/PLAN: 1. Acute non-recurrent sinusitis, unspecified location - ICD9: 461.9, ICD10: J01.90 - AMOXICILLIN 875 MG-POTASSIUM CLAVULANATE 125 MG TABLET - BENZONATATE 100 MG CAPSULE MDM Risk of Complications, Morbidity, and/or Mortality Presenting problems: low Diagnostic procedures: low Management options: stiven Lozoya PA-C Allergies As of Date: 05/15/2025 Noted Allergy Reaction CODEINE 07/03/2007 TRAMADOL 06/30/2014 9 - Itching 14 - Other: See Comments Comments: Dizziness Date Reviewed: 05/15/2025 Reviewed by: Amanda Gonzalez MA - Fully Assessed Reason for Visit: Head Congestion [234] Cmt: SAMUEL, sinus congestion, chest congestion, ST x5 days Primary Visit Diagnosis:Acute non-recurrent sinusitis, unspecified location [J01.90] Order(s):amoxicillin-clavul anate potassium (AUGMENTIN) 875-125 mg per tabletTake 1 tablet by mouth two times a day for 10 days.Disp: 20 tabletRfl: 0 benzonatate (TESSALON PERLE) 100 mg capsuleTake 1 capsule by mouth three times a day as needed for cough for up to 7 days.Disp: 21 capsuleRfl: 0 Prescriptions as of 05/15/2025 - amoxicillin-clavulanate potassium (AUGMENTIN) 875-125 mg per tablet Take 1 tablet by mouth two times a day for 10 days. - benzonatate (TESSALON PERLE) 100 mg capsule Take 1 capsule by mouth three times a day as needed for cough for up to 7 days. - DULoxetine (CYMBALTA) 30 mg capsule Take 1 capsule by mouth once daily. - baclofen 10 mg tablet Take 1 tablet by mouth once daily as needed. - ondansetron (ZOFRAN) 4 mg tablet Take 1 tablet by mouth every 8 hours as needed. - metoprolol succinate ER (TOPROL XL) 100 mg Take 1.5 tablets by mouth once daily. - triamterene-hydroCHLOROthia zide (MAXZIDE) 75-50 mg per tablet Take 1 tablet by mouth once daily. - levonorgestrel (MIRENA) 21 mcg/24hr (up to 8 yrs) 52 mg IUD 1 Each by INTRAUTERINE route as directed. - lisinopril (ZESTRIL) 20 mg tablet Take 1 tablet by mouth once daily. - tretinoin (RETIN-A) 0.025 % topical cream Mix 50/50 with moisturizer and apply to the affected areas of the face every night. - Azelaic Acid 15 % gel Apply a thin layer to th (more content not included)... Normal [facility] CNTHERAPYon 05-05-2025 CNTHERAPY OT/PT/Speech Visit ( AKPTG) MARICRUZ TEJADA ([id number]) 1 F Date Time Provider Department 05/05/25 1:30 PM JOLLY MONROYG Date Time Provider Department [place] 05/05/2025 1:30 PM [id number] MONROY [facility] Reason for Visit: Physical Therapy [503] Primary Visit Diagnosis:Chronic right shoulder pain [M25.511, G89.29] Other Visit Diagnoses:Weakness of right upper extremity [R29.898] Decreased right shoulder range of motion [M25.611] Allergies As of Date: 05/05/2025 Noted Allergy Reaction CODEINE 07/03/2007 TRAMADOL 06/30/2014 9 - Itching 14 - Other: See Comments Comments: Dizziness Date Reviewed: 04/21/2025 Reviewed by: Estela Layton LPN - Fully Assessed Prescriptions as of 05/05/2025 - triamcinolone acetonide (KENALOG) 0.1 % cream Apply to affected area two times a day for 14 days. - DULoxetine (CYMBALTA) 30 mg capsule Take 1 capsule by mouth once daily. - baclofen 10 mg tablet Take 1 tablet by mouth once daily as needed. - ondansetron (ZOFRAN) 4 mg tablet Take 1 tablet by mouth every 8 hours as needed. - metoprolol succinate ER (TOPROL XL) 100 mg Take 1.5 tablets by mouth once daily. - triamterene-hydroCHLOROthia zide (MAXZIDE) 75-50 mg per tablet Take 1 tablet by mouth once daily. - levonorgestrel (MIRENA) 21 mcg/24hr (up to 8 yrs) 52 mg IUD 1 Each by INTRAUTERINE route as directed. - lisinopril (ZESTRIL) 20 mg tablet Take 1 tablet by mouth once daily. - tretinoin (RETIN-A) 0.025 % topical cream Mix 50/50 with moisturizer and apply to the affected areas of the face every night. - Azelaic Acid 15 % gel Apply a thin layer to the full face once daily in the morning - PARoxetine (PAXIL) 10 mg tablet Take 1 tablet by mouth once daily. - ubrogepant (UBRELVY) 100 mg tablet Take 1 tab at migraine onset. May repeat once in 2 hours as needed. - Cholecalciferol, Vitamin D3, 50 mcg (2,000 unit) cap Take 1 capsule by mouth once daily. - Norethindrone Acet-Ethinyl Est (,) 1-20 mg-mcg per tablet (Discontinued) Take 1 tablet by mouth once daily. Sports Director: Therapy (PT/OT/Speech/Resp) ID: [id number] 05/05/2025 2:14 PM Author: JOLLY MONROY Signed by JOLLY MONROY BEEHIVE KILN SUPERVISOR on 05/05/2025 at 2:14 PM Document text: Program_ID:[id number] Access Code: [email or web address] URL: [email or web address] Date: 05-05-2025 Prepared By: Luis Enrique Sears Program Notes Exercises - Circular Shoulder Pendulum with Table Support - 2-3 x daily - 7 x weekly - 2 sets - 10 reps - Supine Shoulder External Rotation with Dowel at 20 Degrees of Abduction - 1 x daily - 7 x weekly - 3 sets - 10 reps - Supine Shoulder Flexion PROM - 2-3 x daily - 7 x weekly - 2 sets - 10 reps - Seated Elbow Flexion and Extension AROM - 2-3 x daily - 7 x weekly - 2 sets - 10 reps - Standing Shoulder Posterior Capsule Stretch - 1 x daily - 7 x weekly - 1 sets - 10 reps - Standing Shoulder Internal Rotation AAROM Behind Back with Towel - 1 x daily - 7 x weekly - 1 sets - 10 reps - Standing Isometric Shoulder Flexion with Doorway - Arm Bent - 1 x daily - 7 x weekly - 3 sets - 10 reps - Standing Isometric Shoulder Extension with Doorway - Arm Bent - 1 x daily - 7 x weekly - 3 sets - 10 reps - Standing Isometric Shoulder Abduction with Doorway - Arm Bent - 1 x daily - 7 x weekly - 3 sets - 10 reps - Seated Shoulder Flexion AAROM with Sadie Behind - 1 x daily - 7 x weekly - 3 sets - 10 reps - Seated Shoulder Scaption AAROM with Sadie at Side - 1 x daily - 7 x weekly - 3 sets - 10 reps Normal [facility] THERAPY NTon 05-05-2025 THERAPY NT HNO ID: [id number] Author: JOLLY MONROY PTA Service: ? Author Type: Corrugator Operator Type: Therapy (PT/OT/Speech/Resp) Filed: 05/05/2025 14:14 Note Text: Program_ID:[id number] Access Code: [email or web address] URL: [email or web address] Date: 05-05-2025 Prepared By: Luis Enrique Sears Program Notes Exercises - Circular Shoulder Pendulum with Table Support - 2-3 x daily - 7 x weekly - 2 sets - 10 reps - Supine Shoulder External Rotation with Dowel at 20 Degrees of Abduction - 1 x daily - 7 x weekly - 3 sets - 10 reps - Supine Shoulder Flexion PROM - 2-3 x daily - 7 x weekly - 2 sets - 10 reps - Seated Elbow Flexion and Extension AROM - 2-3 x daily - 7 x weekly - 2 sets - 10 reps - Standing Shoulder Posterior Capsule Stretch - 1 x daily - 7 x weekly - 1 sets - 10 reps - Standing Shoulder Internal Rotation AAROM Behind Back with Towel - 1 x daily - 7 x weekly - 1 sets - 10 reps - Standing Isometric Shoulder Flexion with Doorway - Arm Bent - 1 x daily - 7 x weekly - 3 sets - 10 reps - Standing Isometric Shoulder Extension with Doorway - Arm Bent - 1 x daily - 7 x weekly - 3 sets - 10 reps - Standing Isometric Shoulder Abduction with Doorway - Arm Bent - 1 x daily - 7 x weekly - 3 sets - 10 reps - Seated Shoulder Flexion AAROM with Sadie Behind - 1 x daily - 7 x weekly - 3 sets - 10 reps - Seated Shoulder Scaption AAROM with Sadie at Side - 1 x daily - 7 x weekly - 3 sets - 10 reps Normal [facility] CNCOon 04-28-2025 CNCO Letter Text [facility] CNPNon 04-28-2025 CNPN Telephone (AKPTG) MARICRUZ TEJADA ([id number]) 1 F Date Time Provider Department 04/28/25 LUIS ENRIQUE SEARS During your visit today, we recorded the following information about you: Luis Enrique Sears, PT 04/28/2025 4:05 PM Signed PT left message saying that a member of the household missed their therapy session and that the next scheduled appointment is on Sunday, 05/05, at 1:30pm. Allergies As of Date: 04/28/2025 Noted Allergy Reaction CODEINE 07/03/2007 TRAMADOL 06/30/2014 9 - Itching 14 - Other: See Comments Comments: Dizziness Date Reviewed: 04/21/2025 Reviewed by: Estela Layton LPN - Fully Assessed Reason for Visit: No Show [1558] Prescriptions as of 04/28/2025 - triamcinolone acetonide (KENALOG) 0.1 % cream Apply to affected area two times a day for 14 days. - DULoxetine (CYMBALTA) 30 mg capsule Take 1 capsule by mouth once daily. - baclofen 10 mg tablet Take 1 tablet by mouth once daily as needed. - ondansetron (ZOFRAN) 4 mg tablet Take 1 tablet by mouth every 8 hours as needed. - metoprolol succinate ER (TOPROL XL) 100 mg Take 1.5 tablets by mouth once daily. - triamterene-hydroCHLOROthia zide (MAXZIDE) 75-50 mg per tablet Take 1 tablet by mouth once daily. - levonorgestrel (MIRENA) 21 mcg/24hr (up to 8 yrs) 52 mg IUD 1 Each by INTRAUTERINE route as directed. - lisinopril (ZESTRIL) 20 mg tablet Take 1 tablet by mouth once daily. - tretinoin (RETIN-A) 0.025 % topical cream Mix 50/50 with moisturizer and apply to the affected areas of the face every night. - Azelaic Acid 15 % gel Apply a thin layer to the full face once daily in the morning - PARoxetine (PAXIL) 10 mg tablet Take 1 tablet by mouth once daily. - ubrogepant (UBRELVY) 100 mg tablet Take 1 tab at migraine onset. May repeat once in 2 hours as needed. - Cholecalciferol, Vitamin D3, 50 mcg (2,000 unit) cap Take 1 capsule by mouth once daily. - Norethindrone Acet-Ethinyl Est (JUNE,) 1-20 mg-mcg per tablet (Discontinued) Take 1 tablet by mouth once daily. Problem List As Of Date 04/28/2025 Noted Resolved Tabor's fracture of base of metacarpal of rig*06/18/2014 Exercise-induced asthma [J45.990] 10/10/2021 Hearing difficulty of left ear [H91.92] 03/26/2023 Acute pharyngitis, unspecified [J02.9] 12/07/2023 Diagnosed: 12/07/2023 Animal-rider injured by fall from or being thro*12/07/2023 Diagnosed: 12/07/2023 Abdominal contusion [S30.1XXA] 12/07/2023 Diagnosed: 12/07/2023 Concussion with brief (less than one hour) loss*12/07/2023 Diagnosed: 12/07/2023 Derangement of right knee [M23.91] 12/07/2023 Diagnosed: 12/07/2023 Knee injury [S89.90XA] 12/07/2023 Diagnosed: 12/07/2023 Sore throat [J02.9] 12/07/2023 Diagnosed: 12/07/2023 Strain of neck muscle [S16.1XXA] 12/07/2023 Diagnosed: 12/07/2023 Strain of right rotator cuff capsule [S46.011A] 12/07/2023 Diagnosed: 12/07/2023 Autonomic dysfunction [G90.9] 02/21/2024 Hypertension, essential [I10] 02/21/2024 Cervicalgia [M54.2] 04/23/2024 Migraine without aura and without status migrai*04/23/2024 Intractable chronic migraine without aura and w*04/23/2024 Disorder of right rotator cuff [M67.911] 09/02/2024 IUD (intrauterine device) in place [Z97.5] 03/03/2025 Atypical squamous cell changes of undetermined *03/13/2025 Preop examination [Z01.818] 03/23/2025 Superior glenoid labrum lesion of right shoulde*03/23/2025 POTS (postural orthostatic tachycardia syndrome* Chronic right shoulder pain [M25.511, G89.29] 04/06/2025 Weakness of right upper extremity [R29.898] 04/06/2025 Decreased right shoulder range of motion [M25.6*04/06/2025 Encounter Status:Closed by LUIS ENRIQUE SEARS on 04/28/25 [facility] CNCOon 04-27-2025 CNCO Letter Text [facility] CNOVon 04-21-2025 CNOV Office Visit (FAMPWS ) MARICRUZ TEJADA ([id number]) 1 F Date Time Provider Department 04/21/25 11:20 AM TAYLER DUNCAN During your visit today, we recorded the following information about you: Pulse Respiration Blood pressure Weight 87/minute 18/minute 122/80 71.2 kg Tayler Duncan APRN.SENIOR ACCOUNT CLERK 04/21/2025 11:44 AM Signed 04/21/2025 Patient presents with: Rash: To neck and trunk where right arm sling is, has been for 4-5 days SUBJECTIVE: This is a 19 year old that is here today for Above Complaints.. Developed rash to neck and across torso. Reports rash started about a week to week and a half after having surgery from a right shoulder torn labrum. Has opal suing cortisone cream to area with mild relief. Areas with rash are relate to were her sling is rubbing. Denies new medications, skin care products. Lip/tongue swelling, SOB, dyspnea or difficulty swallowing PAST MEDICAL HISTORY Diagnosis Date Calculus of kidney Essential hypertension Migraine headache with aura PMDD (premenstrual dysphoric disorder) 2018 POTS (postural orthostatic tachycardia syndrome) borderline Rotator cuff dysfunction, right partial tear Syncope and collapse Tachycardia ALLERGIES Codeine and Tramadol MEDICATIONS Current Outpatient Medications Medication Sig DULoxetine (CYMBALTA) 30 mg capsule Take 1 capsule by mouth once daily. baclofen 10 mg tablet Take 1 tablet by mouth once daily as needed. ondansetron (ZOFRAN) 4 mg tablet Take 1 tablet by mouth every 8 hours as needed. metoprolol succinate ER (TOPROL XL) 100 mg Take 1.5 tablets by mouth once daily. triamterene-hydroCHLOROthia zide (MAXZIDE) 75-50 mg per tablet Take 1 tablet by mouth once daily. levonorgestrel (MIRENA) 21 mcg/24hr (up to 8 yrs) 52 mg IUD 1 Each by INTRAUTERINE route as directed. lisinopril (ZESTRIL) 20 mg tablet Take 1 tablet by mouth once daily. tretinoin (RETIN-A) 0.025 % topical cream Mix 50/50 with moisturizer and apply to the affected areas of the face every night. Azelaic Acid 15 % gel Apply a thin layer to the full face once daily in the morning PARoxetine (PAXIL) 10 mg tablet Take 1 tablet by mouth once daily. ubrogepant (UBRELVY) 100 mg tablet Take 1 tab at migraine onset. May repeat once in 2 hours as needed. Cholecalciferol, Vitamin D3, 50 mcg (2,000 unit) cap Take 1 capsule by mouth once daily. No current facility-administered medications for this visit. Medications and allergies reviewed by this provider. SOCIAL HISTORY Social History Tobacco Use Smoking status: Never Smokeless tobacco: Never Vaping Use Vaping status: Never Used Substance Use Topics Alcohol use: No Drug use: No REVIEW OF SYSTEMS All other reviewed and negative other than HPI. OBJECTIVE: BP 122/80 Pulse 87 Resp 18 Wt 71.2 kg (157 lb) LMP 02/24/2025 (Exact Date) SpO2 98% BMI 28.72 kg/m? . Vital signs reviewed by this provider. APPEARANCE Well appearing, alert, in no acute distress, well-hydrated, well nourished. SKIN few scattered raises circular areas to posterior neck about the area her sling is resting. A few smaller similar areas to torso where sling rests against Asthma Action Plan Never done Asthma Control Test Never done Meningococcal B Vaccine(1 of 2 - Standard) Never done Depression Screening Never done Anxiety Screening Never done Hepatitis C Screening Never done HIV Screening Never done BP Controlled (<130/80) Never done Covid-19 Vaccine(2023- season) Never done DTaP,Tdap,Td Vaccine(7 - Td or Tdap) due on 09/22/2025 GC (Gonorrhea) Screening (18-24) due on 01/05/2026 Chlamydia Screening (18-24) due on 01/05/2026 Cervical Cancer Screening due on 03/03/2026 Annual PCP Team Chronic Disease Visit due on 04/16/2026 Hepatitis B Vaccine Completed HPV Vaccine Completed Influenza Vaccine Completed ASSESSMENT/PLAN: 1. Skin eruption - ICD9: 782.1, ICD10: R21 - likely related to the sling against the skin - no red flag symptoms or exam findings - red flag symptoms discussed, verbalizes understanding - would recommend she wrap another fabric around area that has direct contact to the skin. May apply steroid cream twice a day and take OTC antihistamine as directed on packaging - remove sling as allowed by surgeon - TRIAMCINOLONE ACETONIDE 0.1 % TOPICAL CREAM - follow-up with PCP care team if fails to improve to ER with red flag symptoms Tayler Podlogar, FARM MANAGER.SENIOR ACCOUNT CLERK Prescription instructions reviewed with patient as applicable. Patient advised if symptoms do not improve or if symptoms worsen sooner, to contact their primary care physician. Potential red flag symptoms discussed with the patient. Reviewed appropriate action plan to take if red flag symptoms occur. Patient agreeable to treatment plan. Medical Decision Making: Problems: Low: Acute, uncomplicated illness or injury (more content not included)... Normal [facility] CNPNon 04-21-2025 CNPN Telephone (FAMWS) TEJADAMARICRUZ Brandt ([id number]) 1 F Date Time Provider Department 04/21/25 CELSO FRERIE During your visit today, we recorded the following information about you: Blanca Morgan RN 04/21/2025 10:58 AM Signed Patient calling with concern for red raised rash to neck area and trunk area that began about 4-5 days ago. Patient states she had shoulder surgery recently and wears a shoulder sling. States she has a rash where her sling rests on her neck and on her stomach. Mild itching. No open areas. States her physical therapist advised she see her PCP for evaluation. No fever. No N/V/D or wheezing/breathing difficulties. Appt made with available Family Medicine provider for today per pt request. Blanca Morgan RN Allergies As of Date: 04/21/2025 Noted Allergy Reaction CODEINE 07/03/2007 TRAMADOL 06/30/2014 9 - Itching 14 - Other: See Comments Comments: Dizziness Date Reviewed: 04/16/2025 Reviewed by: Little Cheng APRN.SENIOR ACCOUNT CLERK - Fully Assessed Reason for Visit: Rash [1087] Prescriptions as of 04/21/2025 - DULoxetine (CYMBALTA) 30 mg capsule Take 1 capsule by mouth once daily. - baclofen 10 mg tablet Take 1 tablet by mouth once daily as needed. - ondansetron (ZOFRAN) 4 mg tablet Take 1 tablet by mouth every 8 hours as needed. - metoprolol succinate ER (TOPROL XL) 100 mg Take 1.5 tablets by mouth once daily. - triamterene-hydroCHLOROthia zide (MAXZIDE) 75-50 mg per tablet Take 1 tablet by mouth once daily. - levonorgestrel (MIRENA) 21 mcg/24hr (up to 8 yrs) 52 mg IUD 1 Each by INTRAUTERINE route as directed. - lisinopril (ZESTRIL) 20 mg tablet Take 1 tablet by mouth once daily. - tretinoin (RETIN-A) 0.025 % topical cream Mix 50/50 with moisturizer and apply to the affected areas of the face every night. - Azelaic Acid 15 % gel Apply a thin layer to the full face once daily in the morning - PARoxetine (PAXIL) 10 mg tablet Take 1 tablet by mouth once daily. - ubrogepant (UBRELVY) 100 mg tablet Take 1 tab at migraine onset. May repeat once in 2 hours as needed. - Cholecalciferol, Vitamin D3, 50 mcg (2,000 unit) cap Take 1 capsule by mouth once daily. - Norethindrone Acet-Ethinyl Est (,) 1-20 mg-mcg per tablet (Discontinued) Take 1 tablet by mouth once daily. Problem List As Of Date 04/21/2025 Noted Resolved Tabor's fracture of base of metacarpal of rig*06/18/2014 Exercise-induced asthma [J45.990] 10/10/2021 Hearing difficulty of left ear [H91.92] 03/26/2023 Acute pharyngitis, unspecified [J02.9] 12/07/2023 Diagnosed: 12/07/2023 Animal-rider injured by fall from or being thro*12/07/2023 Diagnosed: 12/07/2023 Abdominal contusion [S30.1XXA] 12/07/2023 Diagnosed: 12/07/2023 Concussion with brief (less than one hour) loss*12/07/2023 Diagnosed: 12/07/2023 Derangement of right knee [M23.91] 12/07/2023 Diagnosed: 12/07/2023 Knee injury [S89.90XA] 12/07/2023 Diagnosed: 12/07/2023 Sore throat [J02.9] 12/07/2023 Diagnosed: 12/07/2023 Strain of neck muscle [S16.1XXA] 12/07/2023 Diagnosed: 12/07/2023 Strain of right rotator cuff capsule [S46.011A] 12/07/2023 Diagnosed: 12/07/2023 Autonomic dysfunction [G90.9] 02/21/2024 Hypertension, essential [I10] 02/21/2024 Cervicalgia [M54.2] 04/23/2024 Migraine without aura and without status migrai*04/23/2024 Intractable chronic migraine without aura and w*04/23/2024 Disorder of right rotator cuff [M67.911] 09/02/2024 IUD (intrauterine device) in place [Z97.5] 03/03/2025 Atypical squamous cell changes of undetermined *03/13/2025 Preop examination [Z01.818] 03/23/2025 Superior glenoid labrum lesion of right shoulde*03/23/2025 POTS (postural orthostatic tachycardia syndrome* Chronic right shoulder pain [M25.511, G89.29] 04/06/2025 Weakness of right upper extremity [R29.898] 04/06/2025 Decreased right shoulder range of motion [M25.6*04/06/2025 Encounter Status:Closed by BLANCA MORGAN on 04/21/25 [facility] CNTHERAPYon 04-20-2025 CNTHERAPY OT/PT/Speech Visit ( AKPTG) MARICRUZ TEJADA ([id number]) 1 F Date Time Provider Department 04/20/25 4:00 PM JOLLY MONROY Date Time Provider Department Center 04/20/2025 4:00 PM [id number] MONROYPTG [facility] Reason for Visit: Physical Therapy [503] Primary Visit Diagnosis:Chronic right shoulder pain [M25.511, G89.29] Other Visit Diagnoses:Weakness of right upper extremity [R29.898] Decreased right shoulder range of motion [M25.611] Allergies As of Date: 04/20/2025 Noted Allergy Reaction CODEINE 07/03/2007 TRAMADOL 06/30/2014 9 - Itching 14 - Other: See Comments Comments: Dizziness Date Reviewed: 04/16/2025 Reviewed by: Little Cheng APRN.SENIOR ACCOUNT CLERK - Fully Assessed Prescriptions as of 04/20/2025 - DULoxetine (CYMBALTA) 30 mg capsule Take 1 capsule by mouth once daily. - baclofen 10 mg tablet Take 1 tablet by mouth once daily as needed. - ondansetron (ZOFRAN) 4 mg tablet Take 1 tablet by mouth every 8 hours as needed. - metoprolol succinate ER (TOPROL XL) 100 mg Take 1.5 tablets by mouth once daily. - triamterene-hydroCHLOROthia zide (MAXZIDE) 75-50 mg per tablet Take 1 tablet by mouth once daily. - levonorgestrel (MIRENA) 21 mcg/24hr (up to 8 yrs) 52 mg IUD 1 Each by INTRAUTERINE route as directed. - lisinopril (ZESTRIL) 20 mg tablet Take 1 tablet by mouth once daily. - tretinoin (RETIN-A) 0.025 % topical cream Mix 50/50 with moisturizer and apply to the affected areas of the face every night. - Azelaic Acid 15 % gel Apply a thin layer to the full face once daily in the morning - PARoxetine (PAXIL) 10 mg tablet Take 1 tablet by mouth once daily. - ubrogepant (UBRELVY) 100 mg tablet Take 1 tab at migraine onset. May repeat once in 2 hours as needed. - Cholecalciferol, Vitamin D3, 50 mcg (2,000 unit) cap Take 1 capsule by mouth once daily. - Norethindrone Acet-Ethinyl Est (JUNE,) 1-20 mg-mcg per tablet (Discontinued) Take 1 tablet by mouth once daily. Normal [facility] CNOVon 04-16-2025 CNOV Office Visit (FAMPWS ) MARICRUZ TEJADA ([id number]) 1 F Date Time Provider Department 04/16/25 2:20 PM LITTLE CHENG During your visit today, we recorded the following information about you: Pulse Respiration Blood pressure Weight 84/minute 16/minute 118/82 69.9 kg Little Cheng APRN.SENIOR ACCOUNT CLERK 04/16/2025 3:34 PM Signed Chief Complaint Patient presents with: Follow Up: Discuss decreasing medication HPI Maricruz Tejada is a 19 year old female who presents here today for Above Complaints.. Pt here for medication dose change. Taking Cymbalta 60mg once daily. Patient states she feels she has no emotion. When she forgets to take the medication she feels better- improved mood and more motivated. When she is off the medication for too long then she starts to have mood swings. Is taking Paxil 10mg daily- states she is benefiting from this, notices improvement with over all mood with this. Past medical history, appointments, medications, allergies reviewed. Previous Medical History PAST MEDICAL HISTORY Diagnosis Date Calculus of kidney Essential hypertension Migraine headache with aura PMDD (premenstrual dysphoric disorder) 2019 POTS (postural orthostatic tachycardia syndrome) borderline Rotator cuff dysfunction, right partial tear Syncope and collapse Tachycardia Previous Surgical History PAST SURGICAL HISTORY Procedure Laterality Date INSERTION OF IUD 10/24/2021 removed 09/14/2023 PAST SURGICAL HISTORY OF removal of renal calculi via lithotrypsy PAST SURGICAL HISTORY OF 06/24/2014 PCP of right thumb PAST SURGICAL HISTORY OF Right 04/03/2025 Shoulder arthroscopy with repair slap lesion UNLISTED PROCEDURE LACRIMAL SYSTEM 02/18/2004 DR WHEELER Family History FAMILY HISTORY Problem Relation Age of Onset Hypertension Mother Started in mid-30's Hypertension Father No Known Problems Sister No Known Problems Brother Hypertension Maternal Grandmother Hypertension Maternal Grandfather Lipids Maternal Grandfather other (FIBROMYALGIA) Paternal Grandmother Patient Allergies ALLERGIES Allergen Reactions Codeine Tramadol Itching, Other: See Comments Dizziness Current Medications Current Outpatient Medications on File Prior to Visit Medication Sig ondansetron (ZOFRAN) 4 mg tablet Take 1 tablet by mouth every 8 hours as needed. metoprolol succinate ER (TOPROL XL) 100 mg Take 1.5 tablets by mouth once daily. triamterene-hydroCHLOROthia zide (MAXZIDE) 75-50 mg per tablet Take 1 tablet by mouth once daily. levonorgestrel (MIRENA) 21 mcg/24hr (up to 8 yrs) 52 mg IUD 1 Each by INTRAUTERINE route as directed. lisinopril (ZESTRIL) 20 mg tablet Take 1 tablet by mouth once daily. tretinoin (RETIN-A) 0.025 % topical cream Mix 50/50 with moisturizer and apply to the affected areas of the face every night. Azelaic Acid 15 % gel Apply a thin layer to the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 episodes, (+) dizziness, (+) lightheadedness, (+) feet swelling (improved with compression socks at work) Neurological: (+) slowed cognition, (+) word-finding difficulty Objective LMP 02/24/2025 (Exact Date) Last 14 BP Last 14 Encounter BP Readings: Date: BP: 04/01/2025 124/88 03/30/2025 129/84 03/03/2025 110/60 02/13/2025 128/85 01/29/2025 118/82 01/22/2025 122/80 01/15/2025 148/90 01/05/2025 128/72 12/26/2024 142/96 12/17/2024 144/90 11/25/2024 142/96 10/21/2024 146/97[bp booker[ 07/15/2024 116/86 06/18/2024 134/95[B/P TRUE[ Physical Exam- deferred as she saw cardiology today who examined her, she had no concerns or new issues to report. General- she appears tired and does display word finding and unorganized thoughts. No acute distress beyond migraine. Diagnostics/Consults reviewed: Cardiology note from today 04/[address] Weston, assessment/plan: 1. Syncope Likely neurocardiogenic in etiology. TTT showed POTS. - We discussed repeating Ziopatch. She will keep us informed if she would like to pursue this. - Continue proper hydration with water. - Consider at least knee-high graded compression stockings starting at 20 to 30 mmHg, increasing to 30 to 40 mmHg if necessary, to be worn during the daytime and removal at bedtime. - Counseled on avoiding exercises where she is in a purely upright position, focusing more on exercises such as stationary biking/ recumbent biking, rowing. Advised on resistance training exercises targeting her lower extremities. - Advised to avoid driving given recent syncopal episode. - She was counseled on techniques to mitigate lightheadedness such as getting close to the ground, elevating her lower extremities above the level of the head/heart, etc. - Advised to keep us updated if she experiences any further syncopal episodes. Tilt table 03/12/25: Postural increase in heart rate was seen that was borderline for accentuated postural tachycardia. Heart rate increased from 81 bpm to 110 bpm in end of tilt. Assessment AND Plan Postural orthostatic tachycardia syndrome (POTS) 1. Postural orthostatic tachycardia syndrome (POTS) (G90.A) - Tilt table test confirmed diagnosis of POTS; blood pressure remained stable, heart rate increased to 110 bpm with positional changes. - Educated patient on the chronic nature of POTS and the importance of symptom management. - Recommended to follow cardiology interventions: compression stockings, proper hydration, exercises not in standing position - Patient advised to monitor heart rate using a smartwatch and to avoid activities that may trigger symptoms, such as prolonged standing. - Discussed the importance of safety measures, including avoiding driving when not feeling well, pulling over if any symptom begins, fall risks, being careful and around others post-surgery sunday - Provided educational material from the [facility] on POTS management and treatment. 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 Normal [facility] CNOV Office Visit (CARD ) MARICRUZ TEJADA ([id number]) 1 F Date Time Provider Department 04/01/25 9:20 AM HILARIO KILLIAN During your visit today, we recorded the following information about you: Pulse Blood pressure Weight Height 82/minute 124/88 71 kg 1.575 m Hilario Killian MD 04/01/2025 10:19 AM Signed [facility] [place] [facility] OF [facility]IONAL CARDIOLOGY OUTPATIENT VISIT DATE 04/01/2025 OUTPATIENT VISIT TYPE ESTABLISHED PRIMARY CARE PHYSICIAN: Celso Freire [address] [place] [address] Patient is being seen at the request of self for follow up HISTORY OF PRESENT ILLNESS: Ms. Tejada is a 19 year old female, history of migraine, hypertension diagnosed in 2022, syncope 2022, dysautonomia, syncope, presents for follow-up visit. Previously seen by Dr. Tovar 02/21/2024. She denies angina, SOB, orthopnea, PND, leg swelling. She reports orthostatic lightheadedness as well as palpitations particularly when running on the treadmill or with any level of physical exertion. Resolves with rest. She experienced a recent episode of syncope approximately 2 weeks ago. She had been running on the treadmill at home and started to feel foggy. He stopped running and experienced lightheadedness as well as blurred vision. She then recalls finding herself on the ground. She felt headache when she regained consciousness. She did not seek medical care at that time. She states that her blood pressures are predominantly in the 120s over 80s when she checks it at home She drinks 120 fl oz per water daily. She wears compression stockings while at work. Tilt table 03/12/25: Postural increase in heart rate was seen that was borderline for accentuated postural tachycardia. Heart rate increased from 81 bpm to 110 bpm in end of tilt. She played basketball and soccer competitively in High School. PAST MEDICAL HISTORY Diagnosis Date Calculus of kidney Essential hypertension Migraine headache with aura PMDD (premenstrual dysphoric disorder) 2019 POTS (postural orthostatic tachycardia syndrome) borderline Rotator cuff dysfunction, right partial tear Syncope and collapse Tachycardia PAST SURGICAL HISTORY Procedure Laterality Date INSERTION OF IUD 10/24/2021 removed 09/14/2023 PAST SURGICAL HISTORY OF removal of renal calculi via lithotrypsy PAST SURGICAL HISTORY OF 06/24/2014 PCP of right thumb UNLISTED PROCEDURE LACRIMAL SYSTEM 02/18/2004 DR WHEELER Social History Tobacco Use Smoking status: Never Smokeless tobacco: Never Vaping Use Vaping status: Never Used Substance Use Topics Alcohol use: No Drug use: No FAMILY HISTORY Problem Relation Age of Onset Hypertension Mother Started in mid-30's Hypertension Father No Known Problems Sister No Known Problems Brother Hypertension Maternal Grandmother Hypertension Maternal Grandfather Lipids Maternal Grandfather other (FIBROMYALGIA) Paternal Grandmother ALLERGIES Allergen Reactions Codeine Tramadol Itching, Other: See Comments Dizziness CURRENT MEDICATIONS: metoprolol succinate ER (TOPROL XL) 100 mg Take 1.5 tablets by mouth once daily. triamterene-hydroCHLOROthia zide (MAXZIDE) 75-50 mg per tablet Take 1 tablet by mouth once daily. levonorgestrel (MIRENA) 21 mcg/24hr (up to 8 yrs) 52 mg IUD 1 Each by INTRAUTERINE route as directed. tretinoin (RETIN-A) 0.025 % topical cream Mix 50/50 with moisturizer and apply to the affected areas of the face every night. Azelaic Acid 15 % gel Apply a thin layer to the full face once daily in the morning PARoxetine (PAXIL) 10 mg tablet Take 1 tablet by mouth once daily. ubrogepant (UBRELVY) 100 mg tablet Take 1 tab at migraine onset. May repeat once in 2 hours as needed. DULoxetine (CYMBALTA) 60 mg capsule Take 1 capsule by mouth once daily. Cholecalciferol, Vitamin D3, 50 mcg (2,000 unit) cap Take 1 capsule by mouth once daily. lisinopril (ZESTRIL) 20 mg tablet Take 1 tablet by mouth once daily. [DISCONTINUED] Norethindrone Acet-Ethinyl Est (,) 1-20 mg-mcg per tablet Take 1 tablet by mouth once daily. PHYSICAL EXAMINATION: BP 124/88 Pulse 82 Ht 157.5 cm (5' 2) Wt 71 kg (156 lb 8.4 oz) LMP 02/24/2025 (Exact Date) SpO2 98% BMI 28.63 kg/m? General: Appears comfortable in no apparent cardiopulmonary distress Neck: No JVD, no bruits CVS: S1, S2, No m/r/g Chest: CTAB Abd: Soft, nontender, no masses, BS present Ext: No pedal edema, pedal pulses 2+ bilaterally Neuro: No focal neurological deficits CARDIOVASCULAR MEDICINE TESTING: Last ECHO Result Conclusion ECHO Collected: 01/29/2025 1:03 PM (Final result) Impression: CONCLUSIONS: - Exam indication: Hypertension - The left ventricle is normal in size. Left ventricular systolic function is normal. EF = 60 ? (more content not included)... Normal [facility] Joce 04-01-2025 CNPN Telephone (AGPOB1) MARICRUZ TEJADA ([id number]) 1 F Date Time Provider [facility] During your visit today, we recorded the following information about you: Nargis Price 04/01/2025 4:33 PM Signed CALLED PATIENT TO CONFIRM SURGERY, ARRIVAL TIME OF 930 AM GIVE PATIENT INSTRUCTIONS AND MY INFORMATION FOR AFTERCARE TOLD TO COMPLETE QUESTIONNAIRE Nargis Price April 01, 2025 4:33 PM Allergies As of Date: 04/01/2025 Noted Allergy Reaction CODEINE 07/03/2007 TRAMADOL 06/30/2014 9 - Itching 14 - Other: See Comments Comments: Dizziness Date Reviewed: 04/01/2025 Reviewed by: Naomy Rivers MA - Fully Assessed Prescriptions as of 04/01/2025 - metoprolol succinate ER (TOPROL XL) 100 mg Take 1.5 tablets by mouth once daily. - triamterene-hydroCHLOROthia zide (MAXZIDE) 75-50 mg per tablet Take 1 tablet by mouth once daily. - levonorgestrel (MIRENA) 21 mcg/24hr (up to 8 yrs) 52 mg IUD 1 Each by INTRAUTERINE route as directed. - lisinopril (ZESTRIL) 20 mg tablet Take 1 tablet by mouth once daily. - tretinoin (RETIN-A) 0.025 % topical cream Mix 50/50 with moisturizer and apply to the affected areas of the face every night. - Azelaic Acid 15 % gel Apply a thin layer to the full face once daily in the morning - PARoxetine (PAXIL) 10 mg tablet Take 1 tablet by mouth once daily. - ubrogepant (UBRELVY) 100 mg tablet Take 1 tab at migraine onset. May repeat once in 2 hours as needed. - DULoxetine (CYMBALTA) 60 mg capsule Take 1 capsule by mouth once daily. - Cholecalciferol, Vitamin D3, 50 mcg (2,000 unit) cap Take 1 capsule by mouth once daily. - Norethindrone Acet-Ethinyl Est (JUNE,) 1-20 mg-mcg per tablet (Discontinued) Take 1 tablet by mouth once daily. Problem List As Of Date 04/01/2025 Noted Resolved Tabor's fracture of base of metacarpal of rig*06/18/2014 Exercise-induced asthma [J45.990] 10/10/2021 Hearing difficulty of left ear [H91.92] 03/26/2023 Acute pharyngitis, unspecified [J02.9] 12/07/2023 Diagnosed: 12/07/2023 Animal-rider injured by fall from or being thro*12/07/2023 Diagnosed: 12/07/2023 Abdominal contusion [S30.1XXA] 12/07/2023 Diagnosed: 12/07/2023 Concussion with brief (less than one hour) loss*12/07/2023 Diagnosed: 12/07/2023 Derangement of right knee [M23.91] 12/07/2023 Diagnosed: 12/07/2023 Knee injury [S89.90XA] 12/07/2023 Diagnosed: 12/07/2023 Sore throat [J02.9] 12/07/2023 Diagnosed: 12/07/2023 Strain of neck muscle [S16.1XXA] 12/07/2023 Diagnosed: 12/07/2023 Strain of right rotator cuff capsule [S46.011A] 12/07/2023 Diagnosed: 12/07/2023 Autonomic dysfunction [G90.9] 02/21/2024 Hypertension, essential [I10] 02/21/2024 Cervicalgia [M54.2] 04/23/2024 Migraine without aura and without status migrai*04/23/2024 Intractable chronic migraine without aura and w*04/23/2024 Disorder of right rotator cuff [M67.911] 09/02/2024 IUD (intrauterine device) in place [Z97.5] 03/03/2025 Atypical squamous cell changes of undetermined *03/13/2025 Preop examination [Z01.818] 03/23/2025 Superior glenoid labrum lesion of right shoulde*03/23/2025 POTS (postural orthostatic tachycardia syndrome* Encounter Status:Closed by NARGIS PRICE on 04/01/25 [facility] HISTORY PHYSICALon HISTORY PHYSICAL HNO ID: [id number] Author: SARAH GARRETT APRN.CNP Service: ? Author Type: Nurse Practitioner Type: H&P Filed: 03/30/2025 14:16 Note Text: [facility] HISTORY AND PHYSICAL EXAMINATION SERVICE DATE: 03/30/2025 SERVICE TIME: 2:15 PM PRIMARY CARE PHYSICIAN: Celso Freier DO Assessment Patient has the following medical conditions which may affect savana-operative course: Preop examination Patient has the following medical conditions which may affect savana-operative course addressed in assessment and plan today. Superior glenoid labrum lesion of right shoulder Surgery scheduled for April 03, 2025 Hypertension, essential Controlled with metoprolol take day of surgery Lisinopril hold morning of surgery POTS (postural orthostatic tachycardia syndrome) Appt. With cardiology 04/01/25 Maria D for followup. Tilt Test Results 03/12/25 * FINAL IMPRESSIONS * - The test was stopped early at 30 out of 45 minutes of 70 degree tilt. - Systolic blood pressures remained stable from 129 mmHg at start to 130 mmHg at end of tilt. - Diastolic blood pressures remained stable from 78 mmHg at start to 85 mmHg at end of tilt. - Blood pressure upon return to supine position was 129/78 mmHg. - Heart rates increased from 81 bpm at start to 110 bpm at end of tilt. - Heart rate upon return to supine position was 77 bpm. - ECGs showed: NO asystole was seen. - Patient signs/symptoms included: HOT, LIGHTHEADEDNESS, SEE NOTE. - Overall: A postural increase in heart rate was seen that was borderline for accentuated postural tachycardia. Exercise-induced asthma Sports induced no longer playing sports. No Inhalers ANESTHESIA FINDINGS: Intubation History: No history of difficult intubation Significant Anesthesia Considerations: none Airway History: No history of difficult airway Howard Activity Status Index: METS: Run a short distance (8.00 METs) DASI Score: 8 Patient denies any chest pain or undue shortness of breath with the above physical activity. STOP-Bang Score: STOP-Bang Score: 0 ARISCAT Score: Age: <=50 Preoperative SpO2: >=96% Respiratory infection in the last month: No Preoperative anemia: No Surgical incision: peripheral Duration of surgery: <2 hrs Emergency procedure: No ARISCAT Score: 0 I - PHYSICAL EVALUATION AIRWAY Patient intubated: No. DENTAL Dental findings: teeth intact. II - ANESTHESIA PLAN Anesthetic Plan: general Beta Gaby Monitoring Plan Post Procedure Analgesic Plan Prepared for Surgery: . Per patient-no optimizations requested by surgeon for plan procedure. CONSULTS: Planned Anesthetic: general The Following Tests/Procedures Have Been Initiated: No orders of the defined types were placed in this encounter. The reason for this visit is to perform a comprehensive review of the patient's past medical history, assess their current health status and obtain any additional testing required based on anesthesia guidelines. We will also identify any potential anesthesia problems or contraindications to the planned procedure. REASON FOR VISIT: Maricruz Tejada is a 19 year old female who is scheduled for Procedure(s): SHOULDER ARTHROSCOPY W/ REPAIR SLAP LESION (slap repair) (Right) at the request of Dr. Neto Mcarthur for routine HANDP. My final recommendation will be communicated back to the requesting physician by way of shared medical record or letter. Subjective The patient has the following: COVID-19 Immunization Status Current Care Gaps Covid-19 Vaccine () Never done 04/11/2024 Postponed until 04/11/2025 by Dinorah Diaz LPN (Declined at this time) 08/26/2021 Postponed until 08/26/2022 by Kelsi Bermudez APRN.SENIOR ACCOUNT CLERK (Declined at this time) CHIEF COMPLAINT: The reason for this visit is to perform a comprehensive review of the patient's past medical history, assess their current health status and obtain any additional testing required based on anesthesia guidelines. We will also identify any potential anesthesia problems or contraindications to the planned procedure. HPI: Patient is a 19 year old female who presents for pre surgical testing. Patient states she has pain in her right upper arm shoulder area for approximately months. she fell off a horse and was pulled on that shoulder. she does not have weakness and she describes her pain dull to sharp 5 out of 10 intermittently. She is status post an MRI. After discussion with the surgeon the patient agrees to surgical intervention. REVIEW OF SYSTEMS: General: Negative for: unintentional weight change, malaise and fever. Neurological: Positive for: headaches. Negative for: seizures and strokes. Respiratory: Positive for: asthma. Negative for: COPD, pneumonia within 6 weeks, URI < 2 weeks and obstructive sleep apnea. Cardiovascular: POTS Positive for: hypertens (more content not included)... [facility] MAR[facility] TE[facility]ADA ([id number]) 1 F Date Time Provider [facility] During your visit today, we recorded the following information about you: Nargis Price 03/25/2025 12:00 PM Signed Called patient in regard to missed pst Left voicemail with reschedule information Nargis Price March 25, 2025 12:00 PM Allergies As of Date: 03/25/2025 Noted Allergy Reaction CODEINE 07/03/2007 TRAMADOL 06/30/2014 9 - Itching 14 - Other: See Comments Comments: Dizziness Date Reviewed: 03/03/2025 Reviewed by: Abran Mabry MA - Fully Assessed Prescriptions as of 03/25/2025 - metoprolol succinate ER (TOPROL XL) 100 mg Take 1.5 tablets by mouth once daily. - triamterene-hydroCHLOROthia zide (MAXZIDE) 75-50 mg per tablet Take 1 tablet by mouth once daily. - levonorgestrel (MIRENA) 21 mcg/24hr (up to 8 yrs) 52 mg IUD 1 Each by INTRAUTERINE route as directed. - lisinopril (ZESTRIL) 20 mg tablet Take 1 tablet by mouth once daily. - tretinoin (RETIN-A) 0.025 % topical cream Mix 50/50 with moisturizer and apply to the affected areas of the face every night. - Azelaic Acid 15 % gel Apply a thin layer to the full face once daily in the morning - PARoxetine (PAXIL) 10 mg tablet Take 1 tablet by mouth once daily. - ubrogepant (UBRELVY) 100 mg tablet Take 1 tab at migraine onset. May repeat once in 2 hours as needed. - DULoxetine (CYMBALTA) 60 mg capsule Take 1 capsule by mouth once daily. - Cholecalciferol, Vitamin D3, 50 mcg (2,000 unit) cap Take 1 capsule by mouth once daily. - Norethindrone Acet-Ethinyl Est (JUNEL ,) 1-20 mg-mcg per tablet (Discontinued) Take 1 tablet by mouth once daily. Problem List As Of Date 03/25/2025 Noted Resolved Tabor's fracture of base of metacarpal of rig*06/18/2014 Exercise-induced asthma [J45.990] 10/10/2021 Hearing difficulty of left ear [H91.92] 03/26/2023 Acute pharyngitis, unspecified [J02.9] 12/07/2023 Diagnosed: 12/07/2023 Animal-rider injured by fall from or being thro*12/07/2023 Diagnosed: 12/07/2023 Abdominal contusion [S30.1XXA] 12/07/2023 Diagnosed: 12/07/2023 Concussion with brief (less than one hour) loss*12/07/2023 Diagnosed: 12/07/2023 Derangement of right knee [M23.91] 12/07/2023 Diagnosed: 12/07/2023 Knee injury [S89.90XA] 12/07/2023 Diagnosed: 12/07/2023 Sore throat [J02.9] 12/07/2023 Diagnosed: 12/07/2023 Strain of neck muscle [S16.1XXA] 12/07/2023 Diagnosed: 12/07/2023 Strain of right rotator cuff capsule [S46.011A] 12/07/2023 Diagnosed: 12/07/2023 Autonomic dysfunction [G90.9] 02/21/2024 Hypertension, essential [I10] 02/21/2024 Cervicalgia [M54.2] 04/23/2024 Migraine without aura and without status migrai*04/23/2024 Intractable chronic migraine without aura and w*04/23/2024 Disorder of right rotator cuff [M67.911] 09/02/2024 IUD (intrauterine device) in place [Z97.5] 03/03/2025 Atypical squamous cell changes of undetermined *03/13/2025 Preop examination [Z01.818] 03/23/2025 Superior glenoid labrum lesion of right shoulde*03/23/2025 POTS (postural orthostatic tachycardia syndrome* Encounter Status:Closed by NARGIS PRICE on 03/25/25 [facility] NURSING PROGon 03-25-2025 NURSING PROG HNO ID: [id number] Author: MEJIA MARIN APRN.SENIOR ACCOUNT CLERK Service: ? Author Type: Nurse Practitioner Type: Nursing Progress Note Filed: 03/25/2025 09:49 Note Text: Summary: PAT Patient no show to PAT. Surgery scheduling notified. [facility] CNOVon 03-03-2025 CNOV Office Visit (OBGYWM ) MARICRUZ TEJADA ([id number]) 1 F Date Time Provider Department 03/03/25 10:45 AM RAYA TAVERAS OBDOMIWM During your visit today, we recorded the following information about you: Blood pressure Weight Height Last Period 110/60 68 kg 1.575 m 02/24/25 Raya Taveras APRN.CN 03/03/2025 1:00 PM Signed Maricruz Tejada is a 19 year old who presents for her annual gynecologic exam without complaints. The patient is a 19-year-old female with a history of migraines and HTN, presenting for follow-up on IUD insertion performed in December. The patient reports continuous bleeding since the IUD insertion in December, with a 2-week cessation period occurring 2 weeks ago. Bleeding has resumed and is currently core fitter than previous episodes, which were intermittently heavy. She describes the bleeding as manageable and is satisfied with the IUD choice. She denies abdominal pain, chest pain, cephalalgia, eye problems, severe leg pain, nipple discharge, breast lumps, constipation, diarrhea, nausea, or emesis. She also denies vaginal discharge, pruritus, burning, or odor, as well as dyspareunia or postcoital bleeding. She reports experiencing intermittent sharp pain in the left breast, described as weird and not consistent, unrelated to her menstrual cycle. She notes that both breasts were sore during her period but emphasizes the sharp pain in the left breast as unusual and news Still get period: Yes LMP: 02/24/2025 Menses: irregular - Mirena IUD Menstrual flow: Light Bleeding amount bothersome: No Bleeding between periods: Yes Period symptoms: Cramps Sexually active: Yes Contraception: IUD Contraception frequency: Always HPV vaccine: Yes HPV:N/A Last pap smear: Never History of abnormal pap: No Colposcopy: No. Leep: No. Cone biopsy: No. Bothersome pelvic pain: No Last mammogram: never 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 History Comments: Sexual Activity: Yes; Male Contraception: No contraception data on record FAMILY HISTORY Problem Relation Age of Onset Hypertension Mother Started in mid-30's Hypertension Father No Known Problems Sister No Known Problems Brother Hypertension Maternal Grandmother Hypertension Maternal Grandfather Lipids Maternal Grandfather other (FIBROMYALGIA) Paternal Grandmother SOCIAL HISTORY Social History Tobacco Use Smoking status: Never Smokeless tobacco: Never Vaping Use Vaping status: Never Used Substance Use Topics Alcohol use: No Drug use: No REVIEW OF SYSTEMS Abdomen: No abdominal pain, nausea, vomiting, diarrhea, or constipation. No bloating, early satiety, indigestion, or increased flatulence. Bladder: No dysuria, gross hematuria, urinary frequency, urinary urgency, or incontinence. Breast: No breast lumps, nipple d/c, overlying skin changes, redness or skin retraction. Allergies and current medication updated:Yes SENSITIVE EXAM: The sensitive examination was discussed with the Patient or Patient's Authorized Other Sports Official. As applicable, any other physician, advance practice provider, medical student, or other health professional student that will be observing or involved in the sensitive examination for educational or training purposes was discussed with the Patient or Authorized Other Sports Official. The Patient or Authorized Other Sports Official has agreed to proceed with the sensitive examination. (Sensitive examination includes inspection and/or palpation of the breasts, pelvis, prostate and anorectal regions). EXAM: BP 110/60 Ht 5' 2 (1.58m) Wt 150 lb (68.0kg) LMP 02/24/2025 BMI 27.43 kg/(m2). GENERAL: pleasant, female in no apparent distress HEENT: Normocephalic, atraumatic, mucus membranes moist, and no lesions NECK: Supple, full range of motion, no adenopathy, and thyroid normal DERMATOLOGY: Normal, without lesions, non-icteric, and non-hirsute BREAST: soft, non-tender, symmetric, no dominant mass, normal nipple-areolar complex, no lymphadenopathy, and no nipple discharge CHEST: Normal inspiratory effort ABDOMEN: soft, non-tender, and no masses PELVIC: external genitalia normal, normal Bartholin's glands, urethra, [place]'s glands, no vulvar lesions, no cervical lesions, good vaginal support, physiologic discharge present, normal appearing perineal body and perianal region. IUD strings in place BIMANUAL: uterus normal size, shape and consistency, no adnexal masses, and non-tender RECTOVAGINAL: rectovaginal exam negative for any masses or nodularity. NEURO: alert and oriented x3,exam grossly non-focal EXTREMITIES: normal ASSESSMENT/PLAN: 1. Encounter for gynecological exa (more content not included)... Normal [facility] HIGH RISK HUMAN PAPILLOMA JOSTIN (HPV), PCR FOR DETECTION AND GENOTYPINGon 03-03-2025 HPV 16 Ag Ql (Unsp spec) Not detected Normal Not detected [facility] Comment on above: Order Comment: Speci men Type: BLOOD SPECIMEN Ordering Facility: [facility] Address: [address] [place] [address] Performed By: #### H PROG #### [facility] [employer] CLIA [id number] [address] [place] [address] HPV 18 Ag Ql (Unsp spec) Not detected Normal Not detected [facility] Comment on above: Order Comment: Speci men Type: BLOOD SPECIMEN Ordering Facility: [facility] Address: [address] [place] [address] Performed By: #### H PROG #### [facility] CLIA [id number] [address] [place] [address] HPV 31+33+35+39+45+51+5 2+56+58+59+66+68 DNA MICHAEL+probe Ql (Cvx) Detected Abnormal Not detected [facility] Comment on above: Order Comment: Speci men Type: BLOOD SPECIMEN Ordering Facility: [facility] Address: [address] [place] [address] Result Comment: High Risk HPV Other Type includes HPV types 31, 33, 35, 39, 45, 51, 52, 56, 58, 59, 66 and 68. Performed By: #### H PROG #### [facility] [employer] CLIA [id number] [address] [place] [address] PAP TESTon 03-03-2025 ADEQUACY Normal [facility] Comment on above: Order Comment: Speci men Type: FLUID SPECIMEN Ordering Facility: [facility] Address: [address] [place] [address] Result Comment: Sati sfactory for interpretation. Transformation zone present Performed By: #### L [id number] #### [facility] CLIA [id number] [address] [place] [address] [place] CASE REPORT Normal [facility] Comment on above: Order Comment: Speci men Type: FLUID SPECIMEN Ordering Facility: [facility] Address: [address] [place] [address] Result Comment: Gyne cologic Cytology Report Case: [id number] Authorizing Provider: Raya Taveras APRN.CNM Collected: 03/03/2025 11:34 AM Ordering Location: OB/Gynecology Received: 03/03/2025 04:29 PM First Screen: Kimberly Turk CT, ASCP Pathologist: Cassidy Hirsch MD Specimen: Pap Test, ThinPrep, Cervix Performed By: #### L [id number] #### [facility] CLIA [id number] [address] [place] [address] [place] CLINICAL HISTORY, CYTOLOGY, MOLDER LABELS Routine Exam Normal [facility] Comment on above: Order Comment: Speci men Type: FLUID SPECIMEN Ordering Facility: [facility] Address: [address] [place] [address] Performed By: #### L [id number] #### [facility] CLIA [id number] [address] [place], [place] [address] [place] FINAL PERFORMING LAB Normal [facility] Comment on above: Order Comment: Speci men Type: FLUID SPECIMEN Ordering Facility: [facility] Address: [address] [place] [address] Result Comment: Tech nical component, combiner screening performed at [facility], [address] [place], [place] [id number] CLIA# [id number] Diagnostic interpretation performed at [facility], [address] [place], [place] [id number] CLIA# [id number] Director Corporate: Parveen Moreno M.D. Performed By: #### L [id number] #### [facility] CLIA [id number] [address] [place], [place] [address] [place] INTERPRETATION, CYTOLOGY, MOLDER LABELS Abnormal [facility] Comment on above: Order Comment: Speci men Type: FLUID SPECIMEN Ordering Facility: [facility] Address: [address] [place], [place] [id number] Result Comment: Atyp ical squamous cells of undetermined significance (ASC-US). at 1706 EDT Performed By: #### L [id number] #### [facility] CLIA [id number] [address] [place] [address] [place] LMP 02/24/2025 Normal [facility] Comment on above: Order Comment: Speci men Type: FLUID SPECIMEN Ordering Facility: [facility] Address: [address] [place] [address] Performed By: #### L [id number] #### [facility] CLIA [id number] [address] [place], [place] [address] [place] PAP DISCLAIMER COMMENT The Pap Smear is a screening test for cervical cancer. False negative results occur with all screening tests, emphasizing the need for rescreening at recommended intervals, and clinical correlation. Normal [facility] Comment on above: Order Comment: Speci men Type: FLUID SPECIMEN Ordering Facility: [facility] Address: [address] [place], [place] [address] Performed By: #### L [id number] #### [facility] CLIA [id number] [address] [place], [place] [address] [place] PAP GENERAL CATEGORIZATION Epithelial Cell Abnormality Normal [facility] Comment on above: Order Comment: Speci men Type: FLUID SPECIMEN Ordering Facility: [facility] Address: [address] [place], [place] [address] [place] [address] Performed By: #### L [id number] #### [facility] CLIA [id number] [address] [place] [address] [place] PAP FISH WARDEN COMMENT This specimen has be en analyzed by the ThinPrep Imaging System, an automated imaging and review system, which assists the laboratory in evaluating cells on ThinPrep Pap tests. Following automated imaging, selected bernal from every slide are reviewed by a combiner. Normal [facility] Comment on above: Order Comment: Speci men Type: FLUID SPECIMEN Ordering Facility: [facility] Address: [address] [place] [address] Performed By: #### L [id number] #### [facility] CLIA [id number] [address] [place] [address] [place] Von Willebrand Profon 2024 FAC VIII ACT 54 Abnormal 56-140 [facility] Comment on above: Order Comment: Test( s) 516842-dvl Willebrand Factor (vWF) Ag was developed and its performance characteristics determined by [employer]. It has not been cleared or approved by the Food and Drug Administration. Result Comment: FVII I levels vary with ABO blood group with the lowest levels occurring in patients with type O. The lower limit of the reference interval in persons with type O is approximately 40%. Performed By: #### L 4500.8000 #### [facility] [address] [place], [place], [id number] VW Interp Note Normal . [facility] Comment on above: Order Comment: Test( s) 946085-bee Willebrand Factor (vWF) Ag was developed and its performance characteristics determined by [employer]. It has not been cleared or approved by the Food and Drug Administration. Result Comment: ---- COAGULATION: VON WILLEBRAND FACTOR ASSESSMENT CURRENT RESULTS ASSESSMENT The VWF:Ag is normal. The VWF:Activity is slightly decreased. The FVIII is slightly decreased. VON WILLEBRAND FACTOR ASSESSMENT CURRENT RESULTS INTERPRETATION - Although the results are abnormal, the panel does not meet the laboratory criteria for VWD. International guidelines suggests that a diagnosis of VWD (excluding type 2N) be reserved for patients with VWF levels that fall below 30%. Refer to the [facility] directory of services for links to current guidelines. Results in the range of 30 to 50% may be associated with an increased risk for bleeding, and do not preclude a VWD diagnosis if supporting clinical history is present, nor preclude therapy to elevate VWF levels with a clinical bleeding risk. This evaluation does not distinguish congenital from acquired von Willebrand syndrome (e.g. secondary to hypothyroidism, lymphoproliferative disorders, certain cardiac conditions associated with increased shear stress). VON WILLEBRAND FACTOR ASSESSMENT - VWF and FVIII levels vary with ABO blood group with the lowest levels occurring in patients with type O. The lower limit of the reference interval in persons with type O is approximately 40%. FVIII (but not VWF) is a labile factor and levels may decrease if a sample is left at room temperature for prolonged periods of time, resulting in a spuriously decreased FVIII result. The presence of a lupus anticoagulant may also cause a spurious decrease in FVIII. Results may be falsely elevated and possibly falsely normal as VWF and FVIII may increase in , in samples drawn from patients (particularly children) who are visibly stressed at the time of phlebotomy, as acute phase reactants, or in response to certain drug therapies such as desmopressin. VON WILLEBRAND FACTOR ASSESSMENT FURTHER CONSIDERATIONS - Consider repeat analysis on a new plasma sample to re-evaluate this pattern of results. VON WILLEBRAND FACTOR ASSESSMENT DEFINITIONS - VWD - von Willebrand disease; VWF - von Willebrand factor; VWF:Ag - VWF antigen; VWF:Activity - VWF activity; FVIII - factor VIII activity. - For questions regarding panel interpretation, please contact [facility] at . DISCLAIMER These assessments and interpretations are provided as a convenience in support of the physician-patient relationship and are not intended to replace the physician's clinical judgment. They are derived from national guidelines in addition to other evidence and expert opinion. The clinician should consider this information within the context of clinical opinion and the individual patient. SEE GUIDANCE FOR VON WILLEBRAND FACTOR ASSESSMENT: (1) The National Heart, Lung and Blood [place]. The Diagnosis, Evaluation and Management of von Willebrand Disease. MD Екатерина: National Institutes of Health Publication 08-5832. 2007. Available at http://www.nhlbi.nih.gov/guidelines/vwd/. (2) Blanca BOWMAN et al. Am J Hematol. 2009; 84(6):366-370. (3) Pepe M et al. Haemophilia. 2004;10(3):199-217. (4) Elina HANCOCK et al. Haemophilia. 2004; 10(3):218-231. Performed at: [facility] [employer] [id number] Education Associate: Merlin Jones MD, Phone: [phone] Performed at: [facility] [employer] Clinical / Digital [address] [place] [id number] Education Associate: Maritza Jo MD, Phone: [phone] Performed By: #### L 1440.8000 #### [facility] [address] [place], [address] vWF ACTIVITY 45 Abnormal 50-200 [facility] Comment on above: Order Comment: Test( s) 155419-xxr Willebrand Factor (vWF) Ag was developed and its performance characteristics determined by [employer]. It has not been cleared or approved by the Food and Drug Administration. Result Comment: VWF levels vary with ABO blood group with the lowest levels occurring in patients with type O. The lower limit of the reference interval in persons with type O is approximately 40%. In addition, the VWF:RCo assay demonstrates significant variability and slightly low values are commonly seen due to preanalytical and analytical variables. VWF:RCo may be spuriously low in individuals with certain polymorphisms in the VWF gene (e.g. [id number]) that alter the binding of ristocetin to VWF. These polymorphisms have been reported in 17% of whites and 63% of Americans without a history of a bleeding disorder (Blood. 2010; 116(2):280-286). Performed By: #### L 4859.8000 #### [facility] [address] [place], [address] vWF Ag 53 Normal 50-200 [facility] Comment on above: Order Comment: Test( s) 402532-uta Willebrand Factor (vWF) Ag was developed and its performance characteristics determined by [employer]. It has not been cleared or approved by the Food and Drug Administration. Performed By: #### L 4500.8000 #### [facility] [address] [place], [address] CNOVon 02-16-2025 CNOV Office Visit (AGHWG1 ) MARICRUZ TEJADA ([id number]) 1 F Date Time Provider Department 02/16/25 1:45 PM NETO MCARTHUR [id number] During your visit today, we recorded the following information about you: Respiration Weight Height 16/minute 71.2 kg 1.6 m Neto Mcarthur MD 02/16/2025 1:59 PM Signed Chief Complaint: Right shoulder pain Consulting Physician: Self History: Maricruz is a 19 year old female who presents after a MRI scan. The pain is located along the superior and lateral aspect of the shoulder. The pain is typically dull but can be sharp at times. The pain does not radiate below the elbow. She denies any neck, elbow, or wrist pain. No numbness or tingling in the extremity. The pain is exacerbated by overhead activities such as putting on a shirt, combing their hair, and lifting objects away from their body. No previous injury to the shoulder. Some night pain especially if they lay on the affected side. She does not report any weakness. No fever, chills, night sweats, weight loss, or other constitutional symptoms. Some popping and clicking noted but no locking or catching. She quantitates their pain as 5/10 Review Of Systems: GENERAL: Well developed, well nourished. No acute distress PAIN: Negative for pain, history of chronic pain or current treatment for chronic pain conditions CARDIOVASCULAR: Negative for chest pain, leg swelling and palpations. MSK: Negative for joint pain, swelling, back pain, muscle pain. SKIN: Negative for lesions, rash, itching, metal sensitivity NEURO: Negative for seizure, trauma, numbness/tingling of extremities. ENDOCRINE: Negative for Diabetes Type 1 and Type 2 HEMATOLOGY: Negative for excessive bleeding, clots, bleeding disorders. Physical Examination: Patient is alert and oriented and in no acute distress. Examination of the C-spine reveals no palpable tenderness. There is no atrophy or asymmetry. The cervical spine has normal range of motion. There is normal cervical lordosis. Examination of the shoulder reveals no evidence of atrophy and the skin is intact. No obvious soft tissue of bony abnormality. She has no pain with palpation along the SC and AC joints. She does have pain along the greater tuberosity and subacromial space. She has 175 degrees forward elevation actively and 175 degrees passively as compared to the other side. A positive impingement sign and positive Pascual test are noted. Mild crepitation noted along the subacromial space with ROM. She has 85 degrees external and T8 degrees internal rotation passively and actively as compared to the other side. A negative empty can test is noted with good strength. Good strength is also noted with external rotation and she has a negative lift-off test. A negative cross body adduction test is noted as well as negative Yergason?s, Speed?s, and O? Oj?s tests. She has full ROM of both elbows and wrists. Good pulses and good cap refill noted. Gross sensation is intact. Reflexes are symmetric bilaterally. The opposite joint reveals full ROM, no pain with palpation, good stability and good strength. MRI Evaluation: MRI examination report reveals the patient has evidence of a questionable superior labral tear. No evidence of anterior-inferior labral pathology. Biceps tendon is intact. Glenohumeral joint is intact as well. No evidence of rotator cuff pathology. Assessment: Superior glenoid labrum lesion of right shoulder, initial encounter (primary encounter diagnosis) Plan: The patient understands the diagnosis, treatment options both operative and non-operative, their associated risks, complications, benefits, outcomes and rehabilitation, and failures and wishes to proceed with surgical intervention. Patient has opted for surgical management. She understands the possibility of a negative arthroscopy. She is willing proceed with surgical management. Surgical intervention will include right shoulder arthroscopy, possible open, possible subacromial decompression, labral repair versus debridement. The patient understands the possibility of biceps tenotomy or tenodesis. Patient understands the possibility of a cosmetic biceps deformity. She understands that surgery cannot be guaranteed to relieve all the symptoms and there is a small but unlikely chance that the symptoms could be worse rather than better. She understands the risks as significant as can occur, including but no limited to the additional risks of loss of limb, infection, deep venous thrombosis, pulmonary embolism, failure of this procedure, wound healing problems, neurovascular injury, continued pain, weakened and muscle atrophy, reflex sympathetic dystrophy and scarring and stiffness. She understands, all questions were answered, and the patient has been provided an informed consent. Neto Mcarthur MD Re (more content not included)... Normal [facility] CNOVon 02-13-2025 [facility] Office Visit (SDFB) MARICRUZ TEJADA ([id number]) 1 F Date Time Provider Department 02/13/25 1:00 PM JAQUELINE CARDONA [facility] During your visit today, we recorded the following information about you: Pulse Blood pressure Weight 91/minute 128/85 71.2 kg Jaqueline Cardona, TEE.SENIOR ACCOUNT CLERK 02/13/2025 1:43 PM Signed Headache Center Follow-up Visit Impression: Chronic migraine without aura, intractable, without status migrainosus (primary encounter diagnosis) New Onabotulinum Toxin A (BotoxTM) for Migraine Indication: Chronic Intractable Migraine Treatment #: 1 Referral Expiration: 07/08/2025 Number of moderate-severe migraine days/month: 20 Number of mild migraine days/month: 10 Number of headache free days/month: 0 (0 headache-free hours) Migraine severity: 10/10 The patient has been assessed for disorders which could contribute to breathing or swallowing difficulty, and there is no contraindication with PREEMPT Botox. There is no documented allergic reaction/hypersensitivity to any botulinum toxin and there is no active infection at proposed injection site. HEADACHE SCORES: 04/23/2024 Headache Questions ID Migraine Screener: 3 (Positive) ER visits in the last year: 0 Hospital stays in the last year: 0 Limited ADLs in the last month: 15 Days missed from work or school in the last month: 3 Days headache pain free in the last month: 15 Days per month with ALL of the following symptoms - decreased productivity, light sensitivity and nausea: 8 PRN medication usage in the last month: 15 04/23/2024 HIT-6 HIT-6 67 (Severe impact) 04/23/2024 OCTAVIO - 2/7 SCORES OCTAVIO-2 Score 1 04/23/2024 Migraine Specific QOL - Higher scores indicate better HRQL Role Function-Restrictive Transformed Score (range: 0-100) 34.29 Role Function-Preventive Transformed Score (range: 0-100) 45 Emotional Function Transformed Score (range: 0-100) 53.33 04/23/2024 PHQ-9 Score 12 BP 128/85 Pulse 91 Wt 71.2 kg (157 lb) LMP 01/22/2025 (Exact Date) BMI 27.81 kg/m? Patient name: Maricruz Tejada : 2005 ALLERGIES Allergen Reactions Codeine Tramadol Itching, Other: See Comments Dizziness UNIVERSAL PROTOCOL / SAFETY CHECKLIST Procedure: Onabotulinum toxin A for migraine Informed Consent Consent Obtained: Written [place] Protocol A moment to CARE was completed SIGN IN Personnel directly involved with the procedure wore the appropriate PPE Special Equipment: N/A Patient/Surrogate Stated/Verified: Patient name, Date of , Relevant allergies and Intended procedure TIME OUT No relevant labs, photos, and/or imaging studies were applicable for review. Consent documented and matches the intended procedure No correct side/site applicable for marking and visibility. No medications required for procedure. No fire risk assessment and interventions applicable. No implant(s) inserted. SIGN OUT No specimen collected. Written Consent Obtained: Written LOT #: [id number] Expiration Date: Month: : 2026 Second vial: LOT #: [id number] Expiration Date: Month: Year: 2026 Injection Sites Left (Units) Left (Sites) Right (Units) Right (Sites) TOTAL (Units) Bartacker 5 1 5 1 10 Procerus Units: 5 Sites: 1 5 Frontalis 10 2 10 2 20 Temporalis optional follow the pain 20 5 4 1 20 5 4 1 50 Occipitalis optional follow the pain 15 10 3 2 15 10 3 2 50 Cervical PSP 10 2 10 2 20 Trapezius optional follow the pain 15 7.5 3 2 15 7.5 3 2 45 Total Units used: 200 Total Units wasted: 0 Patient tolerated procedure well. Prior Therapies Duration of Use Dose Side effect Analgesic Hydrocodone/Acetaminophen (Vicodin, [place]) Tramadol (Ultram) Anti-Anxiety Buspirone (Buspar) Anti-Depressant and Antipsychotic Bupropion (Wellbutrin) Duloxetine (Cymbalta) Paroxetine (Paxil) Sertraline (Zoloft) Antiemetics Ondansetron Anti-Migraine Eletriptan (Relpax) Naratriptan (Amerge) Rizatriptan (Maxalt) Blood Pressure Lisinopril (Zestril) Metoprolol (Lopressor,Toprol XL) Muscle Relaxer Baclofen (Lioresal) Other Medications Dextroamphetamine (Adderal) Prednisone Over the Counter Medications Acetaminophen (Tylenol) Acetaminophen/Aspirin/Caffe ine (Excedrin, Goody?s) Aspirin Ibuprofen (Advil, Motrin) Naproxen sodium (Aleve) RAVEN Diggs Katherine, APRN.CNP 02/13/2025 1:12 PM Signed AFTER VISIT CARE BOTOX INJECTION While these procedures can be extremely helpful as part of your headache treatment plan, they can irritate the muscles and tissues in your head, neck and shoulders. Proper follow-up care is important to avoid muscle spasms and temporary pain increase within the following 3-5 days after your clinic visit. Here are some tips to help decrease side-effects that may occur and maximize the effecti (more content not included)... Normal [facility] RENAL ARTERY [facility] n 02-12-2025 RENAL [facility] Non-Invasive Vascular Laboratory [facility] Renal or Mesenteric Duplex Bilateral/Complete Date of service/time: 02/12/2025 8:08:45 AM Name: MISS MARICRUZ TEJADA Date of : 2005 Age: 19 years Gender: F Clinical Indication Hypertension not responding to medical management. TECHNIQUE -------- A visceral duplex ultrasound examination was performed, including grayscale imaging and color Doppler and spectral Doppler examination of the below mentioned arteries and veins. FINDINGS -------- Aorta at renals PSV: 121 cm/s. EDV: 16 cm/s. Right renal artery origin PSV: 93 cm/s. EDV: 21 cm/s. Right renal artery proximal PSV: 112 cm/s. EDV: 48 cm/s. Right renal artery mid PSV: 110 cm/s. EDV: 38 cm/s. Right renal artery distal PSV: 84 cm/s. EDV: 35 cm/s. Right renal artery to aortic ratio (RAR): 0.9 Right kidney: Size: 11.6 cm. Right parenchyma resistive index and acceleration time Upper pole RI: 0.68 AT: 40 msec. Mid pole RI: 0.60 AT: 20 msec. Lower pole RI: 0.66 AT: 16 msec. Right renal vein patent. Left renal artery origin PSV: 85 cm/s. EDV: 34 cm/s. Left renal artery proximal PSV: 64 cm/s. EDV: 28 cm/s. Left renal artery mid PSV: 84 cm/s. EDV: 29 cm/s. Left renal artery distal PSV: 46 cm/s. EDV: 16 cm/s. Left renal artery to aortic ratio (RAR): 0.7 Left kidney: Size: 10.1 cm. Left parenchyma resistive index and acceleration time Upper pole RI: 0.71 AT: 28 msec. Mid pole RI: 0.58 AT: 12 msec. Lower pole RI: 0.60 AT: 24 msec. Left renal vein patent. RAR not accurate due to high aortic velocities. IMPRESSION AORTA Patent. RIGHT RENAL Right renal artery: 0-59% stenosis. No evidence of hemodynamically significant stenosis. LEFT RENAL Left renal artery: 0-59% stenosis. No evidence of hemodynamically significant stenosis. Left kidney partially obscured by ribs, appears to be approximately 1.5cm smaller in length than contralateral. Technologist: Rianna Tijerina BA, RVT Ordering physician: KELSI BERMUDEZ Interpreting physician: JUSTIN Tirado DO Final [employer] Image : [id number] See Link below for Image Normal [facility] CNOVon 01-29-2025 CNOV Office Visit (FAMPWS ) TEJADAMARICRUZ Brandt ([id number]) 1 F Date Time Provider Department 01/29/25 8:40 AM KELSI BERMUDZE During your visit today, we recorded the following information about you: Pulse Blood pressure Weight 76/minute 118/82 70 kg Kelsi Bermudez APRN.SENIOR ACCOUNT CLERK 01/29/2025 3:52 PM Signed Chief Complaint Patient presents with: Hypertension HPI Maricruz Tejada is a 19 year old female who presents here today for Above Complaints.. Still having dizziness. Overall doesn't feel good. Sore throat. Was dx with bronchitis in [facility] care but doesn't feel like that's what going on-has been taking Augmentin x1 week. Always tired. Does snore. Not sure if she stops breathing or not. A couple of times has woken up during the night with a jump, but not sure exactly what the cause. Past medical history, appointments, medications, allergies reviewed. Previous Medical History PAST MEDICAL HISTORY Diagnosis Date Calculus of kidney Essential hypertension Migraine headache with aura PMDD (premenstrual dysphoric disorder) 2019 POTS (postural orthostatic tachycardia syndrome) borderline Rotator cuff dysfunction, right partial tear Syncope and collapse Tachycardia Previous Surgical History PAST SURGICAL HISTORY Procedure Laterality Date INSERTION OF IUD 10/24/2021 removed 09/14/2023 PAST SURGICAL HISTORY OF removal of renal calculi via lithotrypsy PAST SURGICAL HISTORY OF 06/24/2014 PCP of right thumb UNLISTED PROCEDURE LACRIMAL SYSTEM 02/18/2004 DR WHEELER Family History FAMILY HISTORY Problem Relation Age of Onset Hypertension Mother Started in mid-30's Hypertension Father No Known Problems Sister No Known Problems Brother Hypertension Maternal Grandmother Hypertension Maternal Grandfather Lipids Maternal Grandfather other (FIBROMYALGIA) Paternal Grandmother Patient Allergies ALLERGIES Allergen Reactions Codeine Tramadol Itching, Other: See Comments Dizziness Current Medications Current Outpatient Medications on File Prior to Visit Medication Sig triamterene-hydroCHLOROthia zide (MAXZIDE) 75-50 mg per tablet Take 1 tablet by mouth once daily. levonorgestrel (MIRENA) 21 mcg/24hr (up to 8 yrs) 52 mg IUD 1 Each by INTRAUTERINE route as directed. lisinopril (ZESTRIL) 20 mg tablet Take 1 tablet by mouth once daily. tretinoin (RETIN-A) 0.025 % topical cream Mix 50/50 with moisturizer and apply to the affected areas of the face every night. Azelaic Acid 15 % gel Apply a thin layer to the full face once daily in the morning PARoxetine (PAXIL) 10 mg tablet Take 1 tablet by mouth once daily. metoprolol succinate ER (TOPROL XL) 100 mg Take 1.5 tablets by mouth once daily. galcanezumab-gnlm (EMGALITY PEN) 120 mg/mL pen Inject 2 pens (240 mg) under the skin 1 time only for initial loading dose. Refrigerate. Do not shake. galcanezumab-gnlm (EMGALITY PEN) 120 mg/mL pen Inject 1 mL subcutaneously once every month. Refrigerate. Do not shake. Patient should start on June 04, 2024. ubrogepant (UBRELVY) 100 mg tablet Take 1 tab at migraine onset. May repeat once in 2 hours as needed. DULoxetine (CYMBALTA) 60 mg capsule Take 1 capsule by mouth once daily. Cholecalciferol, Vitamin D3, 50 mcg (2,000 unit) cap Take 1 capsule by mouth once daily. [DISCONTINUED] Norethindrone Acet-Ethinyl Est (JUNE,) 1-20 mg-mcg per tablet Take 1 tablet by mouth once daily. No current facility-administered medications on file prior to visit. Social History Social History Tobacco Use Smoking status: Never Smokeless tobacco: Never Vaping Use Vaping status: Never Used Substance Use Topics Alcohol use: No Comment: rare Drug use: No Review of Symptoms REVIEW OF SYSTEMS See HPI, otherwise negative EXAM: LMP 01/22/2025 (Exact Date) General Appearance: Well appearing, alert, in no acute distress, well-hydrated, well nourished, fatigued Lungs: Lungs clear to auscultation. No wheezing, rhonchi, rales.. Heart: RRR without murmur, gallop, or rubs. No ectopy. Psychiatric: pleasant, cooperative. Health Maintenance List Asthma Action Plan Never done Asthma Control Test Never done Meningococcal B Vaccine(1 of 2 - Standard) Never done Spirometry Never done Depression Screening Never done Anxiety Screening Never done Hepatitis C Screening Never done HIV Screening Never done BP Controlled (<130/80) Never done Cervical Cancer Screening Never done Covid-19 Vaccine() Never done DTaP,Tdap,Td Vaccine(7 - Td or Tdap) due on 09/22/2025 GC (Gonorrhea) Screening (18-24) due on 01/05/2026 Chlamydia Screening (18-24) due on 01/05/2026 Annual PCP Team Chronic Disease Visit due on 01/15/2026 Hepatitis B Vaccine Completed HPV Vaccine Completed Influenza Vaccine Completed Data reviewed Previous records, office notes A (more content not included)... Normal [facility] ECHOon 01-29-2025 Echocardiography Echocardiography Rep ort: Transthoracic Echo [facility] Date of service: 01/29/2025 1:03:50 PM PHOTOGRAPHER Ordering physician: KELSI BERMUDEZ Indication: Hypertension Technologist: Denice Mario [facility] Interpreting physician: Roseanna Duncan MD PATIENT: Name: MISS MARICRUZ TEJADA : 2005 Age: 19 years Gender: F History of hypertension. Primary rhythm: sinus. Height: 160.00 cm BSA: 1.77 m Weight: 70.76 kg BMI: 27.6 kg/m Heart rate 69 bpm Blood pressure 130/75 mmHg Color Doppler was utilized to interrogate the cardiac valves assessed and spectral Doppler was utilized to determine the flow velocities and pressure gradients reported in this exam. Myocardial strain analysis was performed in this exam to aid in the assessment of cardiac function. MEASUREMENTS: Value Indexed Normal Max aortic dimension 2.5 cm Ao < 3.8 Left atrial volume 36 ml (4ch A-L) 20 ml/m Rosalba <= 34 LV ID (diastole) 4.5 cm (2D) 2.54 cm/m LV ID (systole) 3.1 cm (2D) 1.76 cm/m IVS, leaflet tips 0.7 cm (2D) Posterior wall thickness 0.9 cm (2D) Left ventricular mass 114 g (2D) 64 g/m Global peak long strain -16.9 % LV stroke volume 54 ml (2D biplane) LV end diastolic volume 90 ml (2D biplane) 50.9 ml/m 29<=EDVi<62 LV end systolic volume 36 ml (2D biplane) 20.2 ml/m Ejection Fraction 60 % (2D biplane) EF > 54 FINDINGS: LEFT VENTRICLE The left ventricle is normal in size. Left ventricular systolic function is normal. Global LV myocardial strain is normal. Normal left ventricular diastolic function. Mitral annular lateral E/e': 5.3. Mitral annular septal E/e': 7.7. Wall Motion: All scored segments are normal. RIGHT VENTRICLE The right ventricle is normal in size. Right ventricular systolic function is normal. RV systolic tissue Doppler velocity is 12.0 cm/s. Tricuspid annular displacement is 2.0 cm. Estimated right atrial pressure is 3 mmHg (although IVC not seen). LEFT ATRIUM The left atrial cavity is normal in size. Pulmonary Veins: The pulmonary venous pattern showed blunted systolic flow. RIGHT ATRIUM The right atrial cavity is normal in size. Inferior Vena Cava: The inferior vena cava appears normal measuring 1.2 cm. MITRAL VALVE The mitral valve leaflets are structurally normal. There is no mitral valve regurgitation. The pressure half time is 39 msec. The peak mitral E/A ratio is 1.83. The average mitral E/e' ratio is 6.5. The mitral flow deceleration time is 134 msec. TRICUSPID VALVE The tricuspid valve leaflets are structurally normal. There is no tricuspid valve regurgitation. AORTIC VALVE The aortic valve cusps are structurally normal. There is no aortic valve regurgitation. Tricuspid aortic valve. The peak gradient is 6 mmHg (peak velocity = 124.5 cm/s). PULMONIC VALVE The pulmonic valve cusps are structurally normal. There is trace pulmonic valve regurgitation. AORTA The visualized aorta is normal in size. Measurements - Mid ascending aorta 2.5 cm. PERICARDIUM There is no pericardial effusion. CONCLUSIONS: - Exam indication: Hypertension - The left ventricle is normal in size. Left ventricular systolic function is normal. EF = 60 5% (2D biplane) Normal left ventricular diastolic function. - The right ventricle is normal in size. Right ventricular systolic function is normal. - There are no significant valvular abnormalities. - Exam was compared with the prior echocardiographic exam performed on 04/10/2023, no significant change. * * * Final * * * [employer] [facility] Image : [id number] Normal [facility] CYNDIE ABARCA PANELon 025 EBV NA AB, QUAL Positive Abnormal Negative [facility] Comment on above: Order Comment: Speci men Type: BLOOD SPECIMEN Ordering Facility: [facility] Address: [address] [place] [address] Performed By: #### E BVPNL #### [facility] CLIA [id number] [address] [place] [address] [place] EBV VCA IGG, QUAL Positive Abnormal Negative [facility] Comment on above: Order Comment: Speci men Type: BLOOD SPECIMEN Ordering Facility: [facility] Address: [address] [place] [address] Performed By: #### E BVPNL #### [facility] CLIA [id number] [address] [place] [address] [place] EBV VCA IGM, QUAL Negative Normal Negative [facility] Comment on above: Order Comment: Speci men Type: BLOOD SPECIMEN Ordering Facility: [facility] Address: [address] [place] [address] Performed By: #### E BVPNL #### [facility] CLIA [id number] [address] [place] [address] [place] INTERPRETATION (EBVPNL) Past Infection. EBV panel interpretation is a general guide that is meant to capture most, but not all, of the possible clinical scenarios. Non-specific reactivities are not uncommon especially with equivocal results. Should the overall interpretation not be consistent with the clinical picture, please contact the medical coder of the test for assistance. Normal [facility] Comment on above: Order Comment: Speci men Type: BLOOD SPECIMEN Ordering Facility: [facility] Address: [address] [place] [address] Performed By: #### E BVPNL #### [facility] CLIA [id number] [address] [place] [address] [place] US KIDNEY/BLADDERon 01-30-20 US KIDNEY/BLADDER * * *Final Report* * * DATE OF EXAM: Jan 29 2025 2:55PM [facility] 1055 - US KIDNEY/BLADDER / PROCEDURE REASON: multiple diagnoses * * * * Physician Interpretation * * * * EXAMINATION: ULTRASOUND KIDNEYS/BLADDER CLINICAL HISTORY: Hypertension TECHNIQUE: Sonography of the kidneys and urinary bladder was performed. Images were obtained and stored in a permanent archive. MQ: UR_1 COMPARISON: CT abdomen pelvis on 11/21/2016 RESULT: Limitations: Bowel gas. Right Kidney: -Renal length: 11.5 cm -Parenchyma: Normal parenchymal echogenicity. Normal parenchymal thickness. -Collecting system: No hydronephrosis. -Calculus: No echogenic, shadowing calculus. -Lesion: None. Left Kidney: -Renal length: 10.4 cm -Parenchyma: Normal parenchymal echogenicity. Normal parenchymal thickness. -Collecting system: No hydronephrosis. -Calculus: No echogenic, shadowing calculus. -Lesion: None. Bladder: Distended urinary bladder without mass lesion seen. Prevoid volume 100 cc and postvoid volume 0 cc. IMPRESSION: Unremarkable sonographic exam of the bilateral kidneys and bladder. Cupola Melter: SYMONE Transcribe Date/Time: Jan 30 2025 11:09A Dictated by : LOY BOWMAN MD This examination was interpreted and the report reviewed and electronically signed by: LOY BOWMAN MD on Jan 30 2025 11:15AM EST [id number] Normal [facility] US THYROID/PARATHYROIDon US THYROID/PARATHYROID * * *Final Report* * * DATE OF EXAM: Jan 29 2025 3:00PM [facility] 1048 - US THYROID/PARATHYROID / PROCEDURE REASON: multiple diagnoses * * * * Physician Interpretation * * * * EXAMINATION: THYROID ULTRASOUND CLINICAL HISTORY: 19 years old Female with Sore throat Tired Sensation of swollen throat. Screening for thyroid disorder TECHNIQUE: Sonography and Doppler imaging of the thyroid was performed. Images were obtained and stored in a permanent archive. MQ: UST_1 COMPARISON: None. RESULT: Right Lobe: 4.4 cm x 1.8 cm x 1.1 cm; homogeneous echogenicity, expected vascular flow. Left Lobe: 4.5 cm x 1.5 cm x 1.1 cm; homogeneous echogenicity, expected vascular flow. Isthmus: 0.1 cm The most suspicious thyroid nodule(s) (up to four) as below: Nodules: None IMPRESSION: Normal sonographic appearance of the thyroid. Cupola Melter: [facility] Transcribe Date/Time: Jan 31 2025 3:02A Dictated by : EMIYL CLARK DO This examination was interpreted and the report reviewed and electronically signed by: EMILY CLARK DO on Jan 31 2025 3:03AM EST [id number] Normal [facility] CNOVon 01-22-2025 CNOV Office Visit (UCTR ) MARICRUZ TEJADA ([id number]) 1 F Date Time Provider Department 01/22/25 1:15 PM VIN CANADA [facility] During your visit today, we recorded the following information about you: Temperature Pulse Respiration Blood pressure 98.3 degrees 109/minute 22/minute 122/80 Weight Last Period 69 kg 01/22/25 Vin [place], TEE.SENIOR ACCOUNT CLERK 01/22/2025 1:22 PM Signed [facility] Subjective Maricruz Tejada is a 19 year old female. HPI Nontoxic-appearing 19-year-old female presents urgent care chief plaint sore throat headache cough chest congestion. Duration of symptoms 1 week. Associated symptoms listed above. Most prominent symptom today sinus pressure cough. Sinus pressure has worsened recently. OTC medications little to no success. Sick contact similar signs symptoms. Denies any chest pain shortness breath fever nausea vomiting abdominal pain. Denies chance . Is not breast-feeding. Past medical history prescription medications allergies reviewed. .Patient presents with: Sore Throat: Headache, congestion, loss of appetite, body aches x 1 week PAST MEDICAL HISTORY Diagnosis Date Calculus of kidney Essential hypertension Migraine headache with aura PMDD (premenstrual dysphoric disorder) 2018 POTS (postural orthostatic tachycardia syndrome) borderline Rotator cuff dysfunction, right partial tear Syncope and collapse Tachycardia PAST SURGICAL HISTORY Procedure Laterality Date INSERTION OF IUD 10/24/2021 removed 09/14/2023 PAST SURGICAL HISTORY OF removal of renal calculi via lithotrypsy PAST SURGICAL HISTORY OF 06/24/2014 PCP of right thumb UNLISTED PROCEDURE LACRIMAL SYSTEM 02/18/2004 DR WHEELER ALLERGIES Codeine and Tramadol MEDICATIONS triamterene-hydroCHLOROthia zide (MAXZIDE) 75-50 mg per tablet Take 1 tablet by mouth once daily. levonorgestrel (MIRENA) 21 mcg/24hr (up to 8 yrs) 52 mg IUD 1 Each by INTRAUTERINE route as directed. lisinopril (ZESTRIL) 20 mg tablet Take 1 tablet by mouth once daily. tretinoin (RETIN-A) 0.025 % topical cream Mix 50/50 with moisturizer and apply to the affected areas of the face every night. Azelaic Acid 15 % gel Apply a thin layer to the full face once daily in the morning PARoxetine (PAXIL) 10 mg tablet Take 1 tablet by mouth once daily. metoprolol succinate ER (TOPROL XL) 100 mg Take 1.5 tablets by mouth once daily. galcanezumab-gnlm (EMGALITY PEN) 120 mg/mL pen Inject 2 pens (240 mg) under the skin 1 time only for initial loading dose. Refrigerate. Do not shake. galcanezumab-gnlm (EMGALITY PEN) 120 mg/mL pen Inject 1 mL subcutaneously once every month. Refrigerate. Do not shake. Patient should start on June 04, 2024. ubrogepant (UBRELVY) 100 mg tablet Take 1 tab at migraine onset. May repeat once in 2 hours as needed. DULoxetine (CYMBALTA) 60 mg capsule Take 1 capsule by mouth once daily. Cholecalciferol, Vitamin D3, 50 mcg (2,000 unit) cap Take 1 capsule by mouth once daily. [DISCONTINUED] Norethindrone Acet-Ethinyl Est (,) 1-20 mg-mcg per tablet Take 1 tablet by mouth once daily. FAMILY HISTORY Problem Relation Age of Onset Hypertension Mother Started in mid-30's Hypertension Father No Known Problems Sister No Known Problems Brother Hypertension Maternal Grandmother Hypertension Maternal Grandfather Lipids Maternal Grandfather other (FIBROMYALGIA) Paternal Grandmother Social History Tobacco Use Smoking status: Never Smokeless tobacco: Never Vaping Use Vaping status: Never Used Substance Use Topics Alcohol use: No Comment: rare Drug use: No Review of Systems Constitutional: Negative for chills, diaphoresis, fatigue and fever. HENT: Positive for sinus pressure and sinus pain. Negative for congestion, drooling, ear discharge, ear pain, rhinorrhea, sneezing, sore throat and trouble swallowing. Eyes: Negative for pain, discharge, redness, itching and visual disturbance. Respiratory: Positive for cough. Negative for chest tightness, shortness of breath and wheezing. Cardiovascular: Negative for chest pain. Gastrointestinal: Negative for abdominal distention, abdominal pain, blood in stool, constipation, diarrhea, nausea and vomiting. Genitourinary: Negative for difficulty urinating and dysuria. Musculoskeletal: Positive for myalgias. Negative for arthralgias, joint swelling, neck pain and neck stiffness. Skin: Negative for rash. Neurological: Positive for headaches. Negative for dizziness, weakness and numbness. Objective BP 122/80 Pulse 109 Temp 36.8 ?C (98.3 ?F) Resp 22 Wt 69 kg (152 lb 1.9 oz) LMP 01/22/2025 (Exact Date) SpO2 100% BMI 26.95 kg/m? Hr 93 Physical Exam Constitutional: Appearance: Normal appearance. HENT: Head: Normocephalic. Jaw: No trismus, tenderness, swelling or pain on movement. Nose: (more content not included)... Normal [facility] STREP A MOLECULAR (POC)on Procedural Control Valid [facility] Strep A (POCT) Negative Negative [facility] BRIEF OP NOTon 01-20-2025 BRIEF OP NOT HNO ID: [id number] Author: DANILO HARRIS MD Service: Interventional Radiology Author Type: Physician Type: Brief Op Note Filed: 01/20/2025 09:15 Note Text: INTERVENTIONAL RADIOLOGY POST PROCEDURE NOTE DATE: 01/20/25 NAME: Maricruz Tejada LOG ID: [id number] Pre-Procedure Diagnosis: Right shoulder pain Pantograph Operator: Surgeon(s) and Role: * Danilo Harris MD, MD - Primary Procedure: Image-guided arthrogram (right) Anesthesia: Local anesthesia Findings: Contrast media successfully injected under fluoroscopic guidance with adequate arthrographic opacification. Estimated Blood Loss: None Specimen: None Complications: None Post-Op/Post-Procedure Diagnosis: - Successful arthrogram under fluoroscopic guidance. The patient was sent to Radiology for post-arthrogram cross-sectional imaging - Please see Radiology report for complete information Normal [facility] IR INJ PROC FOR SHLDR ARTHOG Marga 01-20-2025 IR INJ PROC FOR SHLDR ARTHOGRAM * * *Final Report* * * DATE OF EXAM: Jan 20 2025 9:19AM [facility] 0956 - IR INJ PROC FOR SHLDR ARTHOGRAM / PROCEDURE REASON: tear * * * * Physician Interpretation * * * * ARTHROGRAM UNDER FLUOROSCOPY GUIDANCE: Right shoulder CLINICAL DATA: Superior glenoid labral lesion COMPARISON: Plain films of the right shoulder dated 12/22/2024. TECHNIQUE AND FINDINGS: The advantages, possible complications (bleeding, infection, allergic reaction to intraprocedural medications, and aggravation of underlying medical conditions, among others) and alternatives of shoulder arthrography were discussed with the patient who understood the discussion and provided signed consent to the procedure. Timeout was performed prior to study. Preprocedure fluoroscopic evaluation of the shoulder area was performed to localize the puncture site. The medial aspect of the upper/mid humeral head was localized with fluoroscopy and marked. The surgical site was cleaned, prepped and draped. Maximal sterile barrier technique was used throughout the complete procedure. Local anesthesia was given to the soft tissues with lidocaine 1%. A 21 G needle was advanced to the area of interest under direct fluoroscopic guidance. Injection of small amount of contrast media confirmed adequate needle position. Then, a mixture of sterile NS (10 cc), non-ionic contrast media (4 cc of Omnipaque 300) and gadolinium (0.1 cc of Dotarem) was injected through the needle with adequate opacification of the bursa and joint. The needle was then removed. The patient was then sent to . The patient tolerated the procedure well and there were no immediate complications. Cumulative dose: 11 mGy. Fluoroscopy time: 1:00 minutes. Estimated blood loss: None. Medications: Lidocaine 1% 8 cc. IMPRESSION: 1. Successful right shoulder arthrogram as described above. 2. No immediate complications. 3. For additional information, please see the report of shoulder MRI that was performed shortly after arthrography. Cupola Melter: [facility] Transcribe Date/Time: Jan 21 2025 11:29P Dictated by : DANILO HARRIS MD This examination was interpreted and the report reviewed and electronically signed by: DANILO HARRIS MD on Jan 21 2025 11:30PM EST [id number] Normal [facility] MR Shoulder - right Arthrogr leanna 01-20-2025 IMPRESSION: 1. There is some heterogeneity/irregularity of the superior labrum at the more anterior aspect (at and anterior to the biceps anchor.). The labrum can have a variable appearance in this quadrant. A discrete linear tear is not seen, particularly one that extends posterior to the labral anchor. 2. The labrum is otherwise unremarkable. 3. No evidence of rotator cuff tear Cupola Melter: [facility] Transcribe Date/Time: Jan 20 2025 12:45P Dictated by : ANGEL QUINTANILLA MD This examination was interpreted and the report reviewed and electronically signed by: ANGEL QUINTANILLA MD on Jan 20 2025 1:06PM EST [facility] * * *Final Report* * * DATE OF EXAM: Jan 20 2025 9:55AM [facility] 0171 - MRI ARTHROGRAM SHOULDER RT / PROCEDURE REASON: Superior glenoid labrum lesion of right shoulder, initial encounter * * * * Physician Interpretation * * * * EXAMINATION: MRI ARTHROGRAM SHOULDER RT CLINICAL HISTORY: Pain; evaluate for labral tear Technique: * Dilute gadolinium contrast was injected into the right glenohumeral joint (and will be reported separately). Multiplanar multisequence noncontrast MRI of the right shoulder was performed. * * Exam Date: 01/20/2025 9:55 AM Comparison: Radiograph 12/22/2024 and MRI 08/11/2024 Contrast: ml of ml of ml of RESULT: AC joint is unremarkable. There is no evidence of a rotator cuff tear. Long head biceps tendon appears intact. There is mild heterogeneity of the anterior superior labrum, at and anterior to the biceps origin the appearance of the labrum in this region is oftentimes variable. A discrete tear is not seen. The labrum at and posterior to the biceps origin appears intact, without evidence of tear. The capsular structures appear to be intact.. Cartilaginous surfaces appear intact. No evidence of muscular atrophy. [facility] Provider, [facility] - 01/20/2025 * * *Final Report* * * DATE OF EXAM: Jan 20 2025 9:55AM [facility] 0171 - MRI ARTHROGRAM SHOULDER RT / PROCEDURE REASON: Superior glenoid labrum lesion of right shoulder, initial encounter * * * * Physician Interpretation * * * * EXAMINATION: MRI ARTHROGRAM SHOULDER RT CLINICAL HISTORY: Pain; evaluate for labral tear Technique: * Dilute gadolinium contrast was injected into the right glenohumeral joint (and will be reported separately). Multiplanar multisequence noncontrast MRI of the right shoulder was performed. * * Exam Date: 01/20/2025 9:55 AM Comparison: Radiograph 12/22/2024 and MRI 08/11/2024 Contrast: ml of ml of ml of RESULT: AC joint is unremarkable. There is no evidence of a rotator cuff tear. Long head biceps tendon appears intact. There is mild heterogeneity of the anterior superior labrum, at and anterior to the biceps origin the appearance of the labrum in this region is oftentimes variable. A discrete tear is not seen. The labrum at and posterior to the biceps origin appears intact, without evidence of tear. The capsular structures appear to be intact.. Cartilaginous surfaces appear intact. No evidence of muscular atrophy. IMPRESSION IMPRESSION: 1. There is some heterogeneity/irregularity of the superior labrum at the more anterior aspect (at and anterior to the biceps anchor.). The labrum can have a variable appearance in this quadrant. A discrete linear tear is not seen, particularly one that extends posterior to the labral anchor. 2. The labrum is otherwise unremarkable. 3. No evidence of rotator cuff tear Cupola Melter: [facility] Transcribe Date/Time: Jan 20 2025 12:45P Dictated by : ANGEL QUINTANILLA MD This examination was interpreted and the report reviewed and electronically signed by: ANGEL QUINTANILLA MD on Jan 20 2025 1:06PM EST [facility] Radiology Study observation (narrative) [facility] MR Shoulder - right Arthrogr amOrdered By: [facility] Provider on 01-20-2025 [facility] MRI ARTHROGRAM SHOULDER RTon 01-20-2025 MRI ARTHROGRAM SHOULDER RT * * *Final Report* * * DATE OF EXAM: Jan 20 2025 9:55AM [facility] 0171 - MRI ARTHROGRAM SHOULDER RT / PROCEDURE REASON: Superior glenoid labrum lesion of right shoulder, initial encounter * * * * Physician Interpretation * * * * EXAMINATION: MRI ARTHROGRAM SHOULDER RT CLINICAL HISTORY: Pain; evaluate for labral tear Technique: * Dilute gadolinium contrast was injected into the right glenohumeral joint (and will be reported separately). Multiplanar multisequence noncontrast MRI of the right shoulder was performed. * * Exam Date: 01/20/2025 9:55 AM Comparison: Radiograph 12/22/2024 and MRI 08/11/2024 Contrast: ml of ml of ml of RESULT: AC joint is unremarkable. There is no evidence of a rotator cuff tear. Long head biceps tendon appears intact. There is mild heterogeneity of the anterior superior labrum, at and anterior to the biceps origin the appearance of the labrum in this region is oftentimes variable. A discrete tear is not seen. The labrum at and posterior to the biceps origin appears intact, without evidence of tear. The capsular structures appear to be intact.. Cartilaginous surfaces appear intact. No evidence of muscular atrophy. IMPRESSION: 1. There is some heterogeneity/irregularity of the superior labrum at the more anterior aspect (at and anterior to the biceps anchor.). The labrum can have a variable appearance in this quadrant. A discrete linear tear is not seen, particularly one that extends posterior to the labral anchor. 2. The labrum is otherwise unremarkable. 3. No evidence of rotator cuff tear Cupola Melter: [facility] Transcribe Date/Time: Jan 20 2025 12:45P Dictated by : ANGEL QUINTANILLA MD This examination was interpreted and the report reviewed and electronically signed by: ANGEL QUINTANILLA MD on Jan 20 2025 1:06PM EST [id number] Normal [facility] CNCOon 01-15-2025 CNCO Letter Text Normal [facility] CNOVon 01-15-2025 CNOV Office Visit (FAMPWS ) MARICRUZ TEJADA ([id number]) 1 F Date Time Provider Department 01/15/25 8:20 AM KELSI BERMUDEZ During your visit today, we recorded the following information about you: Pulse Blood pressure Weight 96/minute 148/90 70.8 kg Kelsi Bermudez APRN.SENIOR ACCOUNT CLERK 01/15/2025 9:37 AM Signed Chief Complaint Patient presents with: Blood Pressure HPI Maricruz Tejada is a 19 year old female who presents here today for Above Complaints.. 3 days ago felt terrible at work, very lightheaded, brain fog, couldn't think straight. BP 166/117, pitting edema 2 days ago BP 177/111 at work, exhausted, weak, pitting edema, heart racing Slept all day yesterday Got IUD 1.5 weeks ago Past medical history, appointments, medications, allergies reviewed. Previous Medical History PAST MEDICAL HISTORY Diagnosis Date Calculus of kidney Essential hypertension Migraine headache with aura PMDD (premenstrual dysphoric disorder) 2018 POTS (postural orthostatic tachycardia syndrome) borderline Rotator cuff dysfunction, right partial tear Syncope and collapse Tachycardia Previous Surgical History PAST SURGICAL HISTORY Procedure Laterality Date INSERTION OF IUD 10/24/2021 removed 09/14/2023 PAST SURGICAL HISTORY OF removal of renal calculi via lithotrypsy PAST SURGICAL HISTORY OF 06/24/2014 PCP of right thumb UNLISTED PROCEDURE LACRIMAL SYSTEM 02/18/2004 DR WHEELER Family History FAMILY HISTORY Problem Relation Age of Onset Hypertension Mother Started in mid-30's Hypertension Father No Known Problems Sister No Known Problems Brother Hypertension Maternal Grandmother Hypertension Maternal Grandfather Lipids Maternal Grandfather other (FIBROMYALGIA) Paternal Grandmother Patient Allergies ALLERGIES Allergen Reactions Codeine Tramadol Itching, Other: See Comments Dizziness Current Medications Current Outpatient Medications on File Prior to Visit Medication Sig levonorgestrel (MIRENA) 21 mcg/24hr (up to 8 yrs) 52 mg IUD 1 Each by INTRAUTERINE route as directed. lisinopril (ZESTRIL) 20 mg tablet Take 1 tablet by mouth once daily. tretinoin (RETIN-A) 0.025 % topical cream Mix 50/50 with moisturizer and apply to the affected areas of the face every night. Azelaic Acid 15 % gel Apply a thin layer to the full face once daily in the morning PARoxetine (PAXIL) 10 mg tablet Take 1 tablet by mouth once daily. metoprolol succinate ER (TOPROL XL) 100 mg Take 1.5 tablets by mouth once daily. galcanezumab-gnlm (EMGALITY PEN) 120 mg/mL pen Inject 2 pens (240 mg) under the skin 1 time only for initial loading dose. Refrigerate. Do not shake. galcanezumab-gnlm (EMGALITY PEN) 120 mg/mL pen Inject 1 mL subcutaneously once every month. Refrigerate. Do not shake. Patient should start on June 04, 2024. ubrogepant (UBRELVY) 100 mg tablet Take 1 tab at migraine onset. May repeat once in 2 hours as needed. DULoxetine (CYMBALTA) 60 mg capsule Take 1 capsule by mouth once daily. Cholecalciferol, Vitamin D3, 50 mcg (2,000 unit) cap Take 1 capsule by mouth once daily. [DISCONTINUED] Norethindrone Acet-Ethinyl Est (,) 1-20 mg-mcg per tablet Take 1 tablet by mouth once daily. No current facility-administered medications on file prior to visit. Social History Social History Tobacco Use Smoking status: Never Smokeless tobacco: Never Vaping Use Vaping status: Never Used Substance Use Topics Alcohol use: No Comment: rare Drug use: No Review of Symptoms REVIEW OF SYSTEMS See HPI, otherwise negative EXAM: BP 148/90 Pulse 96 Wt 70.8 kg (156 lb) LMP 11/19/2024 (Within Days) BMI 27.63 kg/m? General Appearance: ill-appearing, alert, in no acute distress, well-hydrated, well nourished.. Lungs: Lungs clear to auscultation. No wheezing, rhonchi, rales.. Heart: RRR without murmur, gallop, or rubs. No ectopy. Psychiatric: pleasant, cooperative, somewhat flat affect. Health Maintenance List Asthma Action Plan Never done Asthma Control Test Never done Meningococcal B Vaccine(1 of 2 - Standard) Never done Spirometry Never done Depression Screening Never done Anxiety Screening Never done Hepatitis C Screening Never done HIV Screening Never done Cervical Cancer Screening Never done Covid-19 Vaccine( season) Never done DTaP,Tdap,Td Vaccine(7 - Td or Tdap) due on 09/22/2025 Annual PCP Team Chronic Disease Visit due on 12/26/2025 GC (Gonorrhea) Screening (18-24) due on 01/05/2026 BP Controlled (<130/80) due on 01/05/2026 Chlamydia Screening (18-24) due on 01/05/2026 Hepatitis B Vaccine Completed HPV Vaccine Completed Influenza Vaccine Completed Data reviewed Previous records, office notes ASSESSMENT/PLAN: 1. Hypertension, essential - ICD9: 401.9, ICD10: I10 (primary diagnosis) - Uncontrolled She is aware (more content not included)... Normal [facility] C. trachomatis+N. gonorrhoea e DNA MICHAEL+probe Ql (Unsp spec)on 01-05-2025 C. trachomatis rRNA MICHAEL+probe Ql (Unsp spec) Not detected Normal Not detected [facility] Comment on above: Order Comment: Speci men Type: BLOOD SPECIMEN Ordering Facility: [facility] Address: [address] [place] [address] Performed By: #### 2 0448-7 #### [facility] CLIA [id number] [address] [place] [address] STATES [facility] N. gonorrhoeae rRNA MICHAEL+probe Ql (Unsp spec) Not detected Normal Not detected [facility] Comment on above: Order Comment: Speci men Type: BLOOD SPECIMEN Ordering Facility: [facility] Address: [address] [place] [address] Performed By: #### 2 0448-7 #### [facility] CLIA [id number] [address] [place] [address] [place] CNOVon 01-05-2025 CNOV Office Visit (OBGYWM ) MARICRUZ TEJADA ([id number]) 1 F Date Time Provider Department 01/05/25 1:30 PM RAYA TAVERAS OBDOMIWShahid During your visit today, we recorded the following information about you: Blood pressure Weight 128/72 69.9 kg Raya Taveras APRN.CNM 01/05/2025 4:06 PM Davie Alcantara presents today for IUD insertion for contraception. Patient's last menstrual period was 11/19/2024 (within days). GC/chlamydia: Last tested 2022, agreeable to testing today. test: negative Side effects including irregular bleeding were discussed with the patient. The patient understands that it should be removed in 8 years or sooner if the patient desires a . IUD source: office provided IUD lot #: [id number] Exp date: 02/16/2027 UNIVERSAL PROTOCOL / SAFETY CHECKLIST Procedure to be Performed: Intrauterine Device (IUD) insertion Mirena Sign In: A Moment of CARE was completed. Personnel directly involved with the procedure wore the appropriate PPE (Personal Protective Equipment). No special equipment needed. Patient/Surrogate Stated/Verified: PATIENT VERIFIED(optional for EMERGENT procedures): Patient name, Date of , Relevant allergies, and The intended procedure Time Out Communication: Intended patient and procedure match the source documents. Consent documented and matches the intended procedure. Relevant labs, photos, and/or imaging studies have been reviewed. Correct side/site marked and visible. Medications required for procedure verified. No fire risk assessment and interventions applicable. Implant(s) inserted: Correct implant(s) confirmed including size and side. and Expiration date(s) reviewed. Sign Out: SIGN OUT (optional for EMERGENT procedures): All specimen containers correctly labeled. All instruments, equipment, possible retained foreign bodies accounted for. Post-procedure follow-up management communicated and Plan of Care Visit completed when applicable. The cervix was prepped with betadine. The uterus sounded to 8 cm and the uterus is Midposition.. Using sterile technique, the Mirena IUD was inserted without difficulty and the string was cut to 3cm from the external os of the cervix. Patient tolerated procedure well. PLAN: Patient was advised to observe for signs and symptoms of infection including but not limited to fever, malodorous vaginal discharge and/or pain. The patient was told to check the string monthly for accurate placement. Bleeding expectations were reviewed. Follow up for annual exam and IUD follow up in 4-8 weeks. Will complete pap smear at that time. Raya Taveras APRN.KERVIN Abran Mabry MA 01/05/2025 1:20 PM Signed POST IUD INSTRUCTIONS You may have irregular bleeding during the first 3 months of use. You may have mild-severe cramping for the next 48 hours. You may use over the counter medication (Motrin, Tylenol) as needed. Your IUD must be removed or replaced based on the following table: IUD Type Removed or replaced within: Tonya 3 years Kyleena 5 years Mirena 8 years Liletta 8 years Paragard 10 years Call the office for signs/symptoms of infection such as severe cramping, fever, or unusual bleeding. Check for string placement as instructed by your doctor. If you have any additional questions, please contact the office. Referring Provider: RAYA TAVERAS [[id number]] Allergies As of Date: 01/05/2025 Noted Allergy Reaction CODEINE 07/03/2007 TRAMADOL 06/30/2014 9 - Itching 14 - Other: See Comments Comments: Dizziness Date Reviewed: 01/05/2025 Reviewed by: Abran Mabry MA - Fully Assessed Reason for Visit: Insertion Of IUD [291] Primary Visit Diagnosis:Encounter for IUD insertion [Z30.430] Other Visit Diagnosis:Screening for STDs (sexually transmitted diseases) [Z11.3] Order(s):[] levonorgestrel 21 mcg/24hr (up to 8 yrs) 52 mg 1 Each intrauterine device (MIRENA)Disp: Rfl: levonorgestrel (MIRENA) 21 mcg/24hr (up to 8 yrs) 52 mg IUD1 Each by INTRAUTERINE route as directed.Disp: 1 EachRfl: 0 UA DIP,URINE HCG (POC) [2417940] Order #: [id number]. #:[id number] -LAB GONORRHEA/CHLAMYDIA NAAT [SQGCCT] Order #: [id number]. #:[id number] TRICHOMONAS VAGINALIS NAAT [SQTRVAMP] Order #: [id number]. #:[id number] Prescriptions as of 01/05/2025 - levonorgestrel (MIRENA) 21 mcg/24hr (up to 8 yrs) 52 mg IUD 1 Each by INTRAUTERINE route as directed. - lisinopril (ZESTRIL) 20 mg tablet Take 1 tablet by mouth once daily. - tretinoin (RETIN-A) 0.025 % topical cream Mix 50/50 with moisturizer and apply to the affected areas of the face every night. - Azelaic Acid 15 % gel Apply a thin layer to the full face once daily in the morning - PARoxetine (PAXIL) 10 mg tablet Take 1 tablet by mouth once daily. - metoprolol succinate ER (TOPROL XL) 100 mg Take 1 (more content not included)... Normal [facility] TRICHOMONAS VAGINALIS NAATon 01-05-2025 T. vaginalis DNA MICHAEL+probe Ql (Unsp spec) Not detected Normal Not detected [facility] Comment on above: Order Comment: Speci men Type: BLOOD SPECIMEN Ordering Facility: [facility] Address: [address] [place] [address] Performed By: #### 2 0448-7 #### [facility] CLIA [id number] [address] [place] [address] [place] [address] [place] UA DIP,URINE HCG (POC)on Beta HCG ( test) Ql (U) Negative Negative [facility] Comment on above: Location:[facility], [address], [place], [address] Roller Engraver (POCT) Internal QC OK [facility] Location:[facility], [address], [place], [place], [id number] [place] [address] POINT OF CARE [facility] CNOVon 12-26-2024 CNOV Office Visit (TESSPWS ) ALYSSIA TEJADAH ([id number]) 1 F Date Time Provider Department 12/26/24 9:00 AM KELSI BERMUDEZ During your visit today, we recorded the following information about you: Pulse Blood pressure Weight 91/minute 142/96 68.5 kg Kelsi Bermudez APRN.SENIOR ACCOUNT CLERK 12/26/2024 9:47 AM Signed Chief Complaint Patient presents with: Follow Up: Hypertension HPI Maricruz Tejada is a 19 year old female who presents here today for Above Complaints. One week ago passed out while working-out, went home and rested. Reports headaches daily. Reports palpitations daily when she's up doing stuff. Denies blurry vision, edema. 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 Lisinopril 5mg daily tolerating well Metoprolol 100mg 1.5 tablet daily tolerating well Past medical history, appointments, medications, allergies reviewed. Previous Medical History PAST MEDICAL HISTORY Diagnosis Date Calculus of kidney Essential hypertension Migraine headache with aura PMDD (premenstrual dysphoric disorder) 2019 POTS (postural orthostatic tachycardia syndrome) borderline Rotator cuff dysfunction, right partial tear Syncope and collapse Tachycardia Previous Surgical History PAST SURGICAL HISTORY Procedure Laterality Date INSERTION OF IUD 10/24/2021 removed 09/14/2023 PAST SURGICAL HISTORY OF removal of renal calculi via lithotrypsy PAST SURGICAL HISTORY OF 06/24/2014 PCP of right thumb UNLISTED PROCEDURE LACRIMAL SYSTEM 02/18/2004 DR WHEELER Family History FAMILY HISTORY Problem Relation Age of Onset Hypertension Mother Started in mid-30's Hypertension Father No Known Problems Sister No Known Problems Brother Hypertension Maternal Grandmother Hypertension Maternal Grandfather Lipids Maternal Grandfather other (FIBROMYALGIA) Paternal Grandmother Patient Allergies ALLERGIES Allergen Reactions Codeine Tramadol Itching, Other: See Comments Dizziness Current Medications Current Outpatient Medications on File Prior to Visit Medication Sig tretinoin (RETIN-A) 0.025 % topical cream Mix 50/50 with moisturizer and apply to the affected areas of the face every night. Azelaic Acid 15 % gel Apply a thin layer to the full face once daily in the morning PARoxetine (PAXIL) 10 mg tablet Take 1 tablet by mouth once daily. metoprolol succinate ER (TOPROL XL) 100 mg Take 1.5 tablets by mouth once daily. norethindrone (AYGESTIN) 5 mg tablet Take 1 tablet by mouth once daily. galcanezumab-gnlm (EMGALITY PEN) 120 mg/mL pen Inject 2 pens (240 mg) under the skin 1 time only for initial loading dose. Refrigerate. Do not shake. galcanezumab-gnlm (EMGALITY PEN) 120 mg/mL pen Inject 1 mL subcutaneously once every month. Refrigerate. Do not shake. Patient should start on June 04, 2024. ubrogepant (UBRELVY) 100 mg tablet Take 1 tab at migraine onset. May repeat once in 2 hours as needed. DULoxetine (CYMBALTA) 60 mg capsule Take 1 capsule by mouth once daily. lisinopril (ZESTRIL) 5 mg tablet Take 1 tablet by mouth once daily. Cholecalciferol, Vitamin D3, 50 mcg (2,000 unit) cap Take 1 capsule by mouth once daily. [DISCONTINUED] Norethindrone Acet-Ethinyl Est (APRIL,) 1-20 mg-mcg per tablet Take 1 tablet by mouth once daily. No current facility-administered medications on file prior to visit. Social History Social History Tobacco Use Smoking status: Never Smokeless tobacco: Never Vaping Use Vaping status: Never Used Substance Use Topics Alcohol use: No Comment: rare Drug use: No Review of Symptoms REVIEW OF SYSTEMS See HPI, otherwise negative EXAM: BP 142/96 (BP Site: Left Arm, BP Position: Sitting, BP Cuff Size: Regular Adult) Pulse 91 Wt 68.5 kg (151 lb) LMP 11/19/2024 (Within Days) SpO2 98% BMI 26.75 kg/m? General Appearance: Well appearing, alert, in no acute distress, well-hydrated, well nourished.. Lungs: Lungs clear to auscultation. No wheezing, rhonchi, rales.. Heart: RRR without murmur, gallop, or rubs. No ectopy. Psychiatric: pleasant, cooperative. Health Maintenance List Asthma Action Plan Never done Asthma Control Test Never done Meningococcal B Vaccine: Consider Based On Risk(1 of 2 - Patient Seeks Protection) Never done Spirometry Never done Depression Screening Never done Anxiety Screening Never done Hepatitis C Screening Never done HIV Screening Never done BP Controlled (<130/80) Never done Cervical Cancer Screening Never done Covid-19 Vaccine(2023- season) Never done GC (Gonorrhea) Screening (18-24) due on 09/12/2024 Chlamydia Screening (18-24) due on 09/12/2024 DTaP,Tdap,Td Vaccine(7 - Td or Tdap) due on 09/22/2025 Annual PCP Team Chronic Disease Visit due on 11/25/2025 Hepatitis B Vaccine Completed HPV Vaccine Completed Infl (more content not included)... Normal [facility] Joce 12-26-2024 MAYAN Telephone (FAMPWS) MARICRUZ TEJADA ([id number]) 1 F Date Time Provider Department 12/26/24 KELSI BERMUDEZ During your visit today, we recorded the following information about you: Kelsi Bermudez APRN.MAYA 12/26/2024 9:56 AM Signed Patient's cardiology consult that she had been waiting for with Dr. Tovar was cancelled and rescheduled with another physician in March. I would really like her to be seen by cardiology to see if they may be able to help with her BP management as well as give some insight to her passing out episodes. Is it possible to get her seen sooner than March? Kelsi Bermudez APRN.Estela Trujillo 12/30/2024 8:41 AM Signed 1st attempt LVM to schedule sooner appt with cardiology (Ha had availability) Charlene Banuelos 01/01/2025 12:06 PM Signed 2Nd attempt made to call patient.. LVM. Denice Nunes 01/05/2025 9:50 AM Signed 3rd attempt - LVM. Allergies As of Date: 12/26/2024 Noted Allergy Reaction CODEINE 07/03/2007 TRAMADOL 06/30/2014 9 - Itching 14 - Other: See Comments Comments: Dizziness Date Reviewed: 12/26/2024 Reviewed by: Kelsi Bermudez APRN.MAYA - Fully Assessed Reason for Visit: Consult [173] Prescriptions as of 01/06/2025 - levonorgestrel (MIRENA) 21 mcg/24hr (up to 8 yrs) 52 mg IUD 1 Each by INTRAUTERINE route as directed. - lisinopril (ZESTRIL) 20 mg tablet Take 1 tablet by mouth once daily. - tretinoin (RETIN-A) 0.025 % topical cream Mix 50/50 with moisturizer and apply to the affected areas of the face every night. - Azelaic Acid 15 % gel Apply a thin layer to the full face once daily in the morning - PARoxetine (PAXIL) 10 mg tablet Take 1 tablet by mouth once daily. - metoprolol succinate ER (TOPROL XL) 100 mg Take 1.5 tablets by mouth once daily. - galcanezumab-gnlm (EMGALITY PEN) 120 mg/mL pen Inject 2 pens (240 mg) under the skin 1 time only for initial loading dose. Refrigerate. Do not shake. - galcanezumab-gnlm (EMGALITY PEN) 120 mg/mL pen Inject 1 mL subcutaneously once every month. Refrigerate. Do not shake. Patient should start on June 04, 2024. - ubrogepant (UBRELVY) 100 mg tablet Take 1 tab at migraine onset. May repeat once in 2 hours as needed. - DULoxetine (CYMBALTA) 60 mg capsule Take 1 capsule by mouth once daily. - Cholecalciferol, Vitamin D3, 50 mcg (2,000 unit) cap Take 1 capsule by mouth once daily. - Norethindrone Acet-Ethinyl Est (,) 1-20 mg-mcg per tablet (Discontinued) Take 1 tablet by mouth once daily. Problem List As Of Date 12/26/2024 Noted Resolved Tabor's fracture of base of metacarpal of rig*06/18/2014 Exercise-induced asthma [J45.990] 10/10/2021 Hearing difficulty of left ear [H91.92] 03/26/2023 Acute pharyngitis, unspecified [J02.9] 12/07/2023 Diagnosed: 12/07/2023 Animal-rider injured by fall from or being thro*12/07/2023 Diagnosed: 12/07/2023 Abdominal contusion [S30.1XXA] 12/07/2023 Diagnosed: 12/07/2023 Concussion with brief (less than one hour) loss*12/07/2023 Diagnosed: 12/07/2023 Derangement of right knee [M23.91] 12/07/2023 Diagnosed: 12/07/2023 Knee injury [S89.90XA] 12/07/2023 Diagnosed: 12/07/2023 Sore throat [J02.9] 12/07/2023 Diagnosed: 12/07/2023 Strain of neck muscle [S16.1XXA] 12/07/2023 Diagnosed: 12/07/2023 Strain of right rotator cuff capsule [S46.011A] 12/07/2023 Diagnosed: 12/07/2023 Autonomic dysfunction [G90.9] 02/21/2024 Hypertension, essential [I10] 02/21/2024 Cervicalgia [M54.2] 04/23/2024 Migraine without aura and without status migrai*04/23/2024 Intractable chronic migraine without aura and w*04/23/2024 Disorder of right rotator cuff [M67.911] 09/02/2024 Encounter Status:Closed by KELSI BERMUDEZ on 01/06/25 Normal [facility] CNOVon 12-22-2024 CNOV Office Visit (AGHWG1 ) MARICRUZ TEJADA ([id number]) 1 F Date Time Provider Department 12/22/24 8:30 AM NETO MCARTHUR [id number] During your visit today, we recorded the following information about you: Respiration Weight Height 18/minute 69.9 kg 1.6 m Aldo Prieto MA 12/22/2024 9:05 AM Signed REVIEW OF SYSTEMS: GENERAL: Well developed, well nourished. No acute distress PAIN: Pain 12/29 CARDIOVASCULAR: Negative for chest pain, leg swelling and palpations. MSK: Negative for joint swelling SKIN: Negative for lesions, rash, itching, metal sensitivity NEURO: Numbness/tingling of extremties at times on right shoulder ENDOCRINE: Negative for diabetic associated symptoms HEMATOLOGY: Negative for excessive bleeding, clots, bleeding disorders. Neto Mcarthur MD 12/22/2024 9:05 AM Signed Chief Complaint: Right shoulder pain. Consulting Physician: Self History: Maricruz is a 19 year old female who presents with with a longstanding history of right shoulder pain. Patient reports that she injured her right shoulder while in high school. Patient reports that she fell directly on her right shoulder at that time. She never has had a dislocation or subluxation in the past. Patient then states that this past December she fell off her horse and had a injury occurred to her right shoulder at that time. Patient reports of pain along the anterior lateral aspect of her shoulder. The pain has worsened over the past few months. She reports pain along the anterior aspect of the shoulder without radiation. The pain is exacerbated with overhead activities such as throwing and lifting. The pain is worse with the arm in the abducted and cocked position while throwing. She reports decreased velocity and distance with throwing activities. The pain is typically dull but sharp at times. Popping and clicking are symptoms as well. No neck, elbow or wrist pain. She reports some night pain as well. No history of dislocation but the shoulder feels somewhat loose at times. No numbness or tingling of the extremity. No fever, chills, night sweats or other constitutional symptoms. She is right hand dominant. She quantitates the pain as 5/10. Review of Systems: GENERAL: Well developed, well nourished. No acute distress PAIN: Negative for pain, history of chronic pain or current treatment for chronic pain conditions CARDIOVASCULAR: Negative for chest pain, leg swelling and palpations. MSK: Negative for joint pain, swelling, back pain, muscle pain. SKIN: Negative for lesions, rash, itching, metal sensitivity NEURO: Negative for seizure, trauma, numbness/tingling of extremities. ENDOCRINE: Negative for Diabetes Type 1 and Type 2 HEMATOLOGY: Negative for excessive bleeding, clots, bleeding disorders. Physical Exam: Patient is alert, oriented and in no acute distress. Examination of the C-spine reveals no palpable tenderness. There is no atrophy or asymmetry and no muscle spasm. The cervical spine has normal range of motion. There is normal cervical lordosis. Examination of the shoulder reveals no atrophy and no soft tissue abnormality. Skin is intact. There is no pain with palpation along the AC or SC joints. There is some pain with palpation along the anterior aspect of the shoulder. The patient has 120 degrees of forward elevation actively and 175 degrees passively as compared to the other side. She has a positive impingement sign and positive Pascual test. Mild crepitation noted along the subacromial space with ROM. She has normal external rotation passively and actively as compared to the other side. Internal rotation is decreased to the back as compared to the other side. A negative empty can test is noted with good strength. Good strength is also noted with external rotation and she has a negative lift-off test. A negative cross body adduction test is noted. She has pain and some apprehension with the arm in ER/abduction. A positive relocation test is seen. She exhibits 2+ anterior load and shift test with a 1+ sulcus sign. A positive O?Oj?s test is noted. Some pain is noted with a Yergason?s and Speed?s test. She has full ROM of the both elbows and wrists. Good pulses and good cap refill noted. Gross sensation is intact. Reflexes are symmetric bilaterally. X-ray Evaluation: AP, Y-view, and axillary views of right shoulder were ordered, obtained, and reviewed today. No dislocation is noted. Joints spaces are well-maintained. No tumors and fractures noted. MRI examination without arthrogram reveals no evidence of rotator cuff or labral pathology. Glenohumeral joint is intact. No fractures noted. Assessment: Superior glenoid labrum lesion of right shoulder, initial encounter (primary encounter diagnosis) Plan: I had a discussion with the Maricruz regarding her shoulder pain. She likely has a superior emanuel (more content not included)... Normal [facility] CNOVon 12-17-2024 CNOV Office Visit (OBGYWM ) MALLORYMARICRUZ ([id number]) 1 F Date Time Provider Department 12/17/24 1:45 PM RAYA TAVERAS OBGYWM During your visit today, we recorded the following information about you: Blood pressure Weight Last Period 144/90 69.9 kg 11/19/24 Raya Taveras APRN.CNM 12/17/2024 4:36 PM Signed Maricruz Tejada is a 19 year old female who presents for problem visit HPI: History of irregular menses and wanting to see if something will work better for her. History of insulin resistance with elevated insulin level, normal at this time with weight loss. No history of PCOS. Sexually active and using Aygestin for control. Menarche at age 10 or 11. Menses have always been irregular and has tried multiple types of control without success. Menses now will come once a month, twice a month or not at all. No skipped pills. 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 History Comments: Sexual Activity: Yes; Male Contraception: No contraception data on record PAST MEDICAL HISTORY Diagnosis Date Calculus of kidney Essential hypertension Migraine headache with aura PMDD (premenstrual dysphoric disorder) 2019 Rotator cuff dysfunction, right partial tear Syncope and collapse Tachycardia PAST SURGICAL HISTORY Procedure Laterality Date INSERTION OF IUD 10/24/2021 removed 09/14/2023 PAST SURGICAL HISTORY OF removal of renal calculi via lithotrypsy PAST SURGICAL HISTORY OF 06/24/2014 PCP of right thumb UNLISTED PROCEDURE LACRIMAL SYSTEM 02/18/2004 DR WHEELER FAMILY HISTORY Problem Relation Age of Onset Hypertension Mother Started in mid-30's Hypertension Father No Known Problems Sister No Known Problems Brother Hypertension Maternal Grandmother Hypertension Maternal Grandfather Lipids Maternal Grandfather other (FIBROMYALGIA) Paternal Grandmother Social History Tobacco Use Smoking status: Never Smokeless tobacco: Never Vaping Use Vaping status: Never Used Substance Use Topics Alcohol use: No Comment: rare Drug use: No Current Outpatient Medications Medication Sig tretinoin (RETIN-A) 0.025 % topical cream Mix 50/50 with moisturizer and apply to the affected areas of the face every night. Azelaic Acid 15 % gel Apply a thin layer to the full face once daily in the morning PARoxetine (PAXIL) 10 mg tablet Take 1 tablet by mouth once daily. metoprolol succinate ER (TOPROL XL) 100 mg Take 1.5 tablets by mouth once daily. norethindrone (AYGESTIN) 5 mg tablet Take 1 tablet by mouth once daily. galcanezumab-gnlm (EMGALITY PEN) 120 mg/mL pen Inject 2 pens (240 mg) under the skin 1 time only for initial loading dose. Refrigerate. Do not shake. galcanezumab-gnlm (EMGALITY PEN) 120 mg/mL pen Inject 1 mL subcutaneously once every month. Refrigerate. Do not shake. Patient should start on June 04, 2024. ubrogepant (UBRELVY) 100 mg tablet Take 1 tab at migraine onset. May repeat once in 2 hours as needed. DULoxetine (CYMBALTA) 60 mg capsule Take 1 capsule by mouth once daily. lisinopril (ZESTRIL) 5 mg tablet Take 1 tablet by mouth once daily. Cholecalciferol, Vitamin D3, 50 mcg (2,000 unit) cap Take 1 capsule by mouth once daily. No current facility-administered medications for this visit. Allergies As of Date: 12/17/2024 Allergen Noted Reaction CODEINE 07/03/2007 TRAMADOL 06/30/2014 Itching and Other: See Comments Fully Assessed 12/17/2024 REVIEW OF SYSTEMS Abdomen: No bloating, early satiety, indigestion, or increased flatulence. No abdominal pain, nausea, vomiting, diarrhea, or constipation. Bladder: No dysuria, gross hematuria, urinary frequency, urinary urgency, or incontinence. Breast: No breast lumps, nipple d/c, overlying skin changes, redness or skin retraction. Expanded ROS: N/A Allergies and current medication updated:Yes SENSITIVE EXAM: Sensitive exam not performed. EXAM: BP 144/90 Wt 154 lb (69.9kg) LMP 11/19/2024 GENERAL: pleasant, female in no apparent distress HEENT: Normocephalic and atraumatic NECK: Supple and full range of motion NEURO: alert and oriented x3,exam grossly non-focal EXTREMITIES: normal Indication Abnormal uterine bleeding Impression The uterus is retroflexed and measures 67 mm x 27 mm x 47 mm. The endometrial thickness is 2.1 mm. The right ovary measures 32 mm x 17 mm x 14 mm. The left ovary measures 33 mm x 15 mm x 12 mm. There is a small amount of free fluid visualized. Recommendations Normal pelvic ultrasound. Latest Ref Rng 11/25/2024 Color Yellow Yellow Clarity Clear Clear Glucose, Urine Negative Negative Bilirubin, Urine Negative Negative Ketone (more content not included)... Normal [facility] CNOVon 12-10-2024 CNOV Office Visit (FRFHWS ) MARICRUZ TEJADA ([id number]) 1 F Date Time Provider Department 12/10/24 2:30 PM FEDERICO MONROY V FRFHWS During your visit today, we recorded the following information about you: Dinorah Mercedes MA 12/10/2024 2:40 PM Signed Patient presents with: 14 weeks 5 days post visit right shoulder : rotator cuff disorder AMB ROOMING INTAKE FLOWSHEET DATA Risk Screening Do you have concerns about personal safety or safety in the home?: No Pain Pain Level: 6 Pain Location: Shoulder-Right Description: Sharp, Throbbing Duration Amount of Time: (Ongoing) Frequency: Continuous Intervention/Comfort measure: Medication Patient has completed PT. Continuing to have pain. Cortisone injection did not help. Taking Advil as needed for the pain and does not help. Federico Monroy V, DO 12/10/2024 2:40 PM Signed SERVICE DATE: December 10, 2024 PCP: Celso Freire DO Subjective Patient ID: Maricruz is a 19 year old female. Chief Complaint: Patient presents with: 14 weeks 5 days post visit right shoulder : rotator cuff disorder PAIN EVALUATION 12/10/2024 1427 Pain Level: 6 Pain Location: Shoulder-Right Description: Sharp;Throbbing Duration Amount of Time: -- Ongoing Frequency: Continuous Intervention/Comfort measure: Medication HPI Patient presents today for follow-up of right shoulder pain. Completed physical therapy as ordered. She does not feel like she has any significant improvement to completing PT. She also received a cortisone injection 14 weeks ago which she states really did not help that much overall with symptoms. Continues to have pain in the shoulder posterior lateral aspect, worse with any kind of activities involving overhead lifting or arm extension. Review of Systems ACTIVE PROBLEM LIST Tabor's Fracture of Base of Metacarpal of Right Thumb Exercise-Induced Asthma Hearing Difficulty of Left Ear Acute Pharyngitis, Unspecified Animal-Manan Injured By Fall From Or Being Thrown From Horse in Noncollision Accident, Initial Encounter Abdominal Contusion Concussion With Brief (Less Than One Hour) Loss of Consciousness Derangement of Right Knee Knee Injury Sore Throat Strain of Neck Muscle Strain of Right Rotator Cuff Capsule Autonomic Dysfunction Hypertension, Essential Cervicalgia Migraine Without Aura and Without Status Migrainosus, Not Intractable Intractable Chronic Migraine Without Aura and Without Status Migrainosus Disorder of Right Rotator Cuff PAST MEDICAL HISTORY Diagnosis Date Calculus of kidney Migraine headache with aura PMDD (premenstrual dysphoric disorder) 2019 Syncope and collapse PAST SURGICAL HISTORY Procedure Laterality Date INSERTION OF IUD 10/24/2021 removed 09/14/2023 PAST SURGICAL HISTORY OF removal of renal calculi via lithotrypsy PAST SURGICAL HISTORY OF 06/24/2014 PCP of right thumb UNLISTED PROCEDURE LACRIMAL SYSTEM 02/18/2004 DR WHEELER FAMILY HISTORY Problem Relation Age of Onset Hypertension Mother Started in mid-30's Hypertension Father No Known Problems Sister No Known Problems Brother Hypertension Maternal Grandmother Hypertension Maternal Grandfather Lipids Maternal Grandfather other (FIBROMYALGIA) Paternal Grandmother Social History Tobacco Use Smoking status: Never Smokeless tobacco: Never Vaping Use Vaping status: Never Used Substance Use Topics Alcohol use: No Comment: rare Drug use: No ALLERGIES Allergen Reactions Codeine Tramadol Itching, Other: See Comments Dizziness MEDICATIONS: PARoxetine (PAXIL) 10 mg tablet Take 1 tablet by mouth once daily. metoprolol succinate ER (TOPROL XL) 100 mg Take 1.5 tablets by mouth once daily. norethindrone (AYGESTIN) 5 mg tablet Take 1 tablet by mouth once daily. galcanezumab-gnlm (EMGALITY PEN) 120 mg/mL pen Inject 2 pens (240 mg) under the skin 1 time only for initial loading dose. Refrigerate. Do not shake. ubrogepant (UBRELVY) 100 mg tablet Take 1 tab at migraine onset. May repeat once in 2 hours as needed. DULoxetine (CYMBALTA) 60 mg capsule Take 1 capsule by mouth once daily. lisinopril (ZESTRIL) 5 mg tablet Take 1 tablet by mouth once daily. Cholecalciferol, Vitamin D3, 50 mcg (2,000 unit) cap Take 1 capsule by mouth once daily. galcanezumab-gnlm (EMGALITY PEN) 120 mg/mL pen Inject 1 mL subcutaneously once every month. Refrigerate. Do not shake. Patient should start on June 04, 2024. [DISCONTINUED] Norethindrone Acet-Ethinyl Est (,) 1-20 mg-mcg per tablet Take 1 tablet by mouth once daily. Allergies, medications, past surgical history, family history and past medical history were reviewed per this encounter. Objective Ortho Exam 19-year-old female pleasant cooperative with exam no acute distress. Valuation of the right shoulder shows motion restriction with abduction exte (more content not included)... [facility] MARICRUZ TEJADA ([id number]) 1 F Date Time Provider Department 12/03/24 [facility] During your visit today, we recorded the following information about you: Kelsi Bermudez APRN.CNP 12/03/2024 6:06 PM Signed Please let her know that I was able to speak with Raya Taveras and she is willing to see her. Please assist her to schedule this appt. RAVEN Gallardo Jazzmin, MA 12/03/2024 6:[address] consult to professor of nursing HAMLET Murray Jazzmin, MA 12/04/2024 8:11 AM Signed Please schedule pt with [facility] HAMLET Murray Sherrie 12/04/2024 9:31 AM Signed 1st attempt left message to return call to schedule consult to [facility] Allergies As of Date: 12/03/2024 Noted Allergy Reaction CODEINE 07/03/2007 TRAMADOL 06/30/2014 9 - Itching 14 - Other: See Comments Comments: Dizziness Date Reviewed: 11/25/2024 Reviewed by: Kelsi Bermudez APRN.CNP - Fully Assessed Reason for Visit: Appointment [186] Primary Visit Diagnosis:Insulin resistance [E88.819] Other Visit Diagnoses:Menorrhagia with irregular cycle [N92.1] Abnormal menstrual cycle [N92.6] Order(s):CONSULT TO GYNECOLOGY [5119] Order #: [id number]: 1 FUTURE Prescriptions as of 12/10/2024 - PARoxetine (PAXIL) 10 mg tablet Take 1 tablet by mouth once daily. - metoprolol succinate ER (TOPROL XL) 100 mg Take 1.5 tablets by mouth once daily. - norethindrone (AYGESTIN) 5 mg tablet Take 1 tablet by mouth once daily. - galcanezumab-gnlm (EMGALITY PEN) 120 mg/mL pen Inject 2 pens (240 mg) under the skin 1 time only for initial loading dose. Refrigerate. Do not shake. - galcanezumab-gnlm (EMGALITY PEN) 120 mg/mL pen Inject 1 mL subcutaneously once every month. Refrigerate. Do not shake. Patient should start on June 04, 2024. - ubrogepant (UBRELVY) 100 mg tablet Take 1 tab at migraine onset. May repeat once in 2 hours as needed. - DULoxetine (CYMBALTA) 60 mg capsule Take 1 capsule by mouth once daily. - lisinopril (ZESTRIL) 5 mg tablet Take 1 tablet by mouth once daily. - Cholecalciferol, Vitamin D3, 50 mcg (2,000 unit) cap Take 1 capsule by mouth once daily. - Norethindrone Acet-Ethinyl Est (,) 1-20 mg-mcg per tablet (Discontinued) Take 1 tablet by mouth once daily. Problem List As Of Date 12/03/2024 Noted Resolved Tabor's fracture of base of metacarpal of rig*06/18/2014 Exercise-induced asthma [J45.990] 10/10/2021 Hearing difficulty of left ear [H91.92] 03/26/2023 Acute pharyngitis, unspecified [J02.9] 12/07/2023 Diagnosed: 12/07/2023 Animal-rider injured by fall from or being thro*12/07/2023 Diagnosed: 12/07/2023 Abdominal contusion [S30.1XXA] 12/07/2023 Diagnosed: 12/07/2023 Concussion with brief (less than one hour) loss*12/07/2023 Diagnosed: 12/07/2023 Derangement of right knee [M23.91] 12/07/2023 Diagnosed: 12/07/2023 Knee injury [S89.90XA] 12/07/2023 Diagnosed: 12/07/2023 Sore throat [J02.9] 12/07/2023 Diagnosed: 12/07/2023 Strain of neck muscle [S16.1XXA] 12/07/2023 Diagnosed: 12/07/2023 Strain of right rotator cuff capsule [S46.011A] 12/07/2023 Diagnosed: 12/07/2023 Autonomic dysfunction [G90.9] 02/21/2024 Hypertension, essential [I10] 02/21/2024 Cervicalgia [M54.2] 04/23/2024 Migraine without aura and without status migrai*04/23/2024 Intractable chronic migraine without aura and w*04/23/2024 Disorder of right rotator cuff [M67.911] 09/02/2024 Encounter Status:Closed by KELSI BERMUDEZ on 12/10/24 Normal [facility] US Pelvison 12-02-2024 Indication Abnormal uterine bleeding Impression The uterus is retroflexed and measures 67 mm x 27 mm x 47 mm. The endometrial thickness is 2.1 mm. The right ovary measures 32 mm x 17 mm x 14 mm. The left ovary measures 33 mm x 15 mm x 12 mm. There is a small amount of free fluid visualized. Recommendations Normal pelvic ultrasound. Menstrual History LMP on 11/17/2024. Contraception: combined oral contraceptive pill Method Transabdominal, transvaginal, 3D ultrasound examination, Color Doppler examination. View: Adequate visualization Uterus Uterus: Visualized Uterus position: retroflexed Description of uterine malformations: none Myometrium: normal Endometrium: normal Cervix details: normal Uterus length 67 mm Uterus width 47 mm Uterus height 27 mm Uterus Vol 45.0 cm Endometrial thickness, total 2.1 mm Fibroids: No fibroids identified Polyps: No polyps identified Right Ovary Rt ovary: Visualized Rt ovary morphology: premenopausal normal follicular Rt ovary D1 32 mm Rt ovary D2 17 mm Rt ovary D3 14 mm Rt ovary Vol 4.1 cm Rt ovarian cyst(s): No cysts identified Left Ovary Lt ovary: Visualized Lt ovary morphology: premenopausal normal follicular Lt ovary D1 33 mm Lt ovary D2 15 mm Lt ovary D3 12 mm Lt ovary Vol 3.0 cm Lt ovarian cyst(s): No cysts identified Cul de Sac Visualized. free fluid visualized: small Performed By: Rebecca Treviño RDMS Read By: Kristel Leonard M.D. MATERNAL MEDICINE [facility] Radiology Study observation (narrative) [facility] [id number] 11-27-2024 [id number] HNO ID: [id number] Author: RAYA AMBRIZ PT Service: ? Author Type: Physical Therapist Type: [id number] Filed: 11/27/2024 09:44 Note Text: [facility] Rehabilitation and Sports Therapy Physical Therapy Plan of Care Certification Patient Name: Maricruz Tejada : 2005 [facility] #: [id number] Date: 11/27/2024 To: Federico Monroy V DO From Therapist: Raya Ambriz PT RE: Patient Certification/ Recertification Your review, approval and electronic signature are required in order to comply with Payor: [facility] / Plan: [facility] CHOICE PLUS / Product Type: HMO / regulations. The identified Physical Therapy PLAN OF CARE for the patient is as follows: M67.911 Disorder of right rotator cuff (primary encounter diagnosis) PLAN OF CARE UPDATE: Assessment: Maricruz Tejada is discontinued from Physical Therapy services due to Patient/Client declining further intervention.. Patient was seen for 5 visits from Start of Care Date: 09/02/24 to 11/27/2024 and treatment included: Therapeutic exercise and Self-nursing home management. Goals for Episode of Care: established 09/02/24 Goals updated on 10/01/2024. Goals updated on 11/27/2024. [place] in home exercise program. -- MET Patient will decrease pain to 1-2/10 with functional activities to allow patient to improve tolerance for ADLs. -- PROGRESSING, 8/10 with reaching overhead to braid the hair Patient will increase active ROM of right shoulder abduction to 160 degrees or greater without increased symptoms to allow pt to to improve postural alignment and to improve performance of ADLs. -- NOT MET Patient will increase flexibility of R UT and levator scapulae to WNL to improve ability to maintain proper posture, improve mechanics, and decrease pain. -- NOT MET Perform reaching behind the back and overhead with decreased report of symptoms/pain in 6 weeks. -- NOT MET Improve postural awareness. -- NOT MET Patient Goals: reduce R shoulder pain -- NOT MET For further details regarding this patient refer to the Physical Therapy electronically documented visit dated 11/27/2024. Provider Attestation I have reviewed the treatment plan for Maricruz Tejada [facility] [id number] for the period of 11/27/24 -- 11/27/24, established on 11/27/2024. Signature certifies the need for therapy services. Normal [facility] CNTHERAPYon 11-27-2024 CNTHERAPY OT/PT/Speech Visit ( PTWS) MALLORYMARICRUZ ([id number]) 1 F Date Time Provider Department 11/27/24 9:30 AM RAYA AMBRIZ PTNNAMDI Date Time Provider Department [place] 11/27/2024 9:30 AM [id number] AMBRIZ PTWS Alvaro Taylor Reason for Visit: PT Discharge [752] Primary Visit Diagnosis:Disorder of right rotator cuff [M67.911] Allergies As of Date: 11/27/2024 Noted Allergy Reaction CODEINE 07/03/2007 TRAMADOL 06/30/2014 9 - Itching 14 - Other: See Comments Comments: Dizziness Date Reviewed: 11/25/2024 Reviewed by: Kelsi Bermudez APRN.SENIOR ACCOUNT CLERK - Fully Assessed Prescriptions as of 11/27/2024 - PARoxetine (PAXIL) 10 mg tablet Take 1 tablet by mouth once daily. - metoprolol succinate ER (TOPROL XL) 100 mg Take 1.5 tablets by mouth once daily. - norethindrone (AYGESTIN) 5 mg tablet Take 1 tablet by mouth once daily. - galcanezumab-gnlm (EMGALITY PEN) 120 mg/mL pen Inject 2 pens (240 mg) under the skin 1 time only for initial loading dose. Refrigerate. Do not shake. - galcanezumab-gnlm (EMGALITY PEN) 120 mg/mL pen Inject 1 mL subcutaneously once every month. Refrigerate. Do not shake. Patient should start on June 04, 2024. - ubrogepant (UBRELVY) 100 mg tablet Take 1 tab at migraine onset. May repeat once in 2 hours as needed. - DULoxetine (CYMBALTA) 60 mg capsule Take 1 capsule by mouth once daily. - lisinopril (ZESTRIL) 5 mg tablet Take 1 tablet by mouth once daily. - Cholecalciferol, Vitamin D3, 50 mcg (2,000 unit) cap Take 1 capsule by mouth once daily. - Norethindrone Acet-Ethinyl Est (JUNE,) 1-20 mg-mcg per tablet (Discontinued) Take 1 tablet by mouth once daily. [facility] (OBGYWM[facility] MARICRUZ TEJADA ([id number]) 1 F Date Time Provider Department 11/26/24 EMELY HANDY OBGYWM During your visit today, we recorded the following information about you: Maritza Ching RN 11/26/2024 8:33 AM Signed Left message for patient to call office. Patient has a pelvic US scheduled for tomorrow, 11/27 @ 0800. Need to move to a different day (need to add an early OB). Please offer patient another day or a sooner day in Radiology if she prefers. Would need a radiology order if she chooses this option. GIANFRANCO Guo Jennifer, RN 11/26/2024 9:55 AM Signed Patient returned call. Appointment moved to 12/02. Maritza Ching RN Allergies As of Date: 11/26/2024 Noted Allergy Reaction CODEINE 07/03/2007 TRAMADOL 06/30/2014 9 - Itching 14 - Other: See Comments Comments: Dizziness Date Reviewed: 11/25/2024 Reviewed by: Kelsi Bermudez APRN.SENIOR ACCOUNT CLERK - Fully Assessed Reason for Visit: Appointment [186] Prescriptions as of 11/26/2024 - PARoxetine (PAXIL) 10 mg tablet Take 1 tablet by mouth once daily. - metoprolol succinate ER (TOPROL XL) 100 mg Take 1.5 tablets by mouth once daily. - norethindrone (AYGESTIN) 5 mg tablet Take 1 tablet by mouth once daily. - galcanezumab-gnlm (EMGALITY PEN) 120 mg/mL pen Inject 2 pens (240 mg) under the skin 1 time only for initial loading dose. Refrigerate. Do not shake. - galcanezumab-gnlm (EMGALITY PEN) 120 mg/mL pen Inject 1 mL subcutaneously once every month. Refrigerate. Do not shake. Patient should start on June 04, 2024. - ubrogepant (UBRELVY) 100 mg tablet Take 1 tab at migraine onset. May repeat once in 2 hours as needed. - DULoxetine (CYMBALTA) 60 mg capsule Take 1 capsule by mouth once daily. - lisinopril (ZESTRIL) 5 mg tablet Take 1 tablet by mouth once daily. - Cholecalciferol, Vitamin D3, 50 mcg (2,000 unit) cap Take 1 capsule by mouth once daily. - Norethindrone Acet-Ethinyl Est (JUNE,) 1-20 mg-mcg per tablet (Discontinued) Take 1 tablet by mouth once daily. Problem List As Of Date 11/26/2024 Noted Resolved Tabor's fracture of base of metacarpal of rig*06/18/2014 Exercise-induced asthma [J45.990] 10/10/2021 Hearing difficulty of left ear [H91.92] 03/26/2023 Acute pharyngitis, unspecified [J02.9] 12/07/2023 Diagnosed: 12/07/2023 Animal-rider injured by fall from or being thro*12/07/2023 Diagnosed: 12/07/2023 Abdominal contusion [S30.1XXA] 12/07/2023 Diagnosed: 12/07/2023 Concussion with brief (less than one hour) loss*12/07/2023 Diagnosed: 12/07/2023 Derangement of right knee [M23.91] 12/07/2023 Diagnosed: 12/07/2023 Knee injury [S89.90XA] 12/07/2023 Diagnosed: 12/07/2023 Sore throat [J02.9] 12/07/2023 Diagnosed: 12/07/2023 Strain of neck muscle [S16.1XXA] 12/07/2023 Diagnosed: 12/07/2023 Strain of right rotator cuff capsule [S46.011A] 12/07/2023 Diagnosed: 12/07/2023 Autonomic dysfunction [G90.9] 02/21/2024 Hypertension, essential [I10] 02/21/2024 Cervicalgia [M54.2] 04/23/2024 Migraine without aura and without status migrai*04/23/2024 Intractable chronic migraine without aura and w*04/23/2024 Disorder of right rotator cuff [M67.911] 09/02/2024 Encounter Status:Closed by MARITZA CHING on 11/26/24 Normal [facility] CBC panel Auto (Bld)on 11-25 Erythrocyte distribution width (RBC) [Ratio] 11.6 % 11.5 - 15.0 % [facility] Hematocrit (Bld) [Volume fraction] 40.8 % 36.0 - 46.0 % [facility] Hemoglobin (Bld) [Mass/Vol] 13.5 g/dL 11.5 - 15.5 g/dL [facility] Interpretation and review of laboratory results Normal [facility] MCH (RBC) [Entitic mass] 29.1 pg 26.0 - 34.0 pg [facility] MCHC (RBC) [Mass/Vol] 33.1 g/dL 30.5 - 36.0 g/dL [facility] MCV (RBC) [Entitic vol] 87.9 fL 80.0 - 100.0 fL [facility] Nucleated RBC (Bld) [#/Vol] NINF [facility] Platelet mean volume (Bld) [Entitic vol] 10.0 fL 9.0 - 12.7 fL [facility] Platelets (Bld) [#/Vol] 235 10*3/uL [facility] RBC (Bld) [#/Vol] 4.64 10*6/uL 3.90 - 5.2 0 m/uL [facility] WBC (Bld) [#/Vol] 5.49 10*3/uL [facility] Erythrocyte distribution width (RBC) [Ratio] 11.6 % Normal 11.5-15.0 [facility] Comment on above: Order Comment: Speci men Type: BLOOD SPECIMEN Ordering Facility: [facility] Address: [address] [place] [address] Performed By: #### 5 8410-2 #### [facility] CLIA [id number] [address] [place] [address] [place] Hematocrit (Bld) [Volume fraction] 40.8 % Normal 36.0-46.0 [facility] Comment on above: Order Comment: Speci men Type: BLOOD SPECIMEN Ordering Facility: [facility] Address: [address] [place] [address] Performed By: #### 5 8410-2 #### [facility] CLIA [id number] [address] [place] [address] [place] Hemoglobin (Bld) [Mass/Vol] 13.5 g/dL Normal 11.5-15.5 [facility] Comment on above: Order Comment: Speci men Type: BLOOD SPECIMEN Ordering Facility: [facility] Address: [address] [place] [address] Performed By: #### 5 8410-2 #### [facility] CLIA [id number] [address] [place] [address] [place] MCH (RBC) [Entitic mass] 29.1 pg Normal 26.0-34.0 [facility] Comment on above: Order Comment: Speci men Type: BLOOD SPECIMEN Ordering Facility: [facility] Address: [address] [place] [address] Performed By: #### 5 8410-2 #### [facility] CLIA [id number] [address] [place] [address] [place] MCHC (RBC) [Mass/Vol] 33.1 g/dL Normal 30.5-36.0 [facility] Comment on above: Order Comment: Speci men Type: BLOOD SPECIMEN Ordering Facility: [facility] Address: [address] [place] [address] Performed By: #### 5 8410-2 #### [facility] CLIA [id number] [address] [place] [address] [place] MCV (RBC) [Entitic vol] 87.9 fL Normal 80.0-100.0 [facility] Comment on above: Order Comment: Speci men Type: BLOOD SPECIMEN Ordering Facility: [facility] Address: [address] [place] [address] Performed By: #### 5 8410-2 #### [facility] CLIA [id number] [address] [place] [address] [place] Nucleated RBC (Bld) [#/Vol] 10*3/uL Normal <0.01 [facility] Comment on above: Order Comment: Speci men Type: BLOOD SPECIMEN Ordering Facility: [facility] Address: [address] [place] [address] Performed By: #### 5 8410-2 #### [facility] CLIA [id number] [address] [place] [address] [place] Platelet mean volume (Bld) [Entitic vol] 10.0 fL Normal 9.0-12.7 [facility] Comment on above: Order Comment: Speci men Type: BLOOD SPECIMEN Ordering Facility: [facility] Address: [address] [place] [address] Performed By: #### 5 8410-2 #### [facility] CLIA [id number] [address] [place] [address] [place] Platelets (Bld) [#/Vol] 235 10*3/uL Normal 150-400 [facility] Comment on above: Order Comment: Speci men Type: BLOOD SPECIMEN Ordering Facility: [facility] Address: [address] [place] [address] Performed By: #### 5 8410-2 #### [facility] CLIA [id number] [address] [place] [address] [place] RBC (Bld) [#/Vol] 4.64 10*6/uL Normal 3.90-5.20 [facility] Comment on above: Order Comment: Speci men Type: BLOOD SPECIMEN Ordering Facility: [facility] Address: [address] [place] [address] Performed By: #### 5 8410-2 #### [facility] CLIA [id number] [address] [place] [address] [place] WBC (Bld) [#/Vol] 5.49 10*3/uL Normal 3.70-11.00 [facility] Comment on above: Order Comment: Speci men Type: BLOOD SPECIMEN Ordering Facility: [facility] Address: [address] [place] [address] Performed By: #### 5 8410-2 #### [facility] CLIA [id number] [address] [place] [address] [place] CNOVon 11-25-2024 CNOV Office Visit (BRENDAWS ) MARICRUZ TEJADA ([id number]) 1 F Date Time Provider Department 11/25/24 9:40 AM KELSI BERMUDEZWS During your visit today, we recorded the following information about you: Pulse Respiration Blood pressure Weight 83/minute 16/minute 142/96 68.5 kg LaraSallyKelsiTEE dunaway.SENIOR ACCOUNT CLERK 11/25/2024 4:15 PM Signed Chief Complaint Patient presents with: BP Check HPI Maricruz Tejada is a 19 year old female who presents here today for Above Complaints. BP-does not check at home-accidentally put it in a storage unit because planning to move. Can tell her BP is elevated-feels off and headache. Denies CP or SOB. Occasional palpitations-this does cause a little SOB-infrequent and no more than 5 minutes or so. Anxiety/depression is under control-is the best it has been in a long time-Cymbalta and Prozac. Much less heart racing. Has never had a regular period in her life. Is scheduled for pelvic ultrasound on -2 days from now. Is on OCP. Past medical history, appointments, medications, allergies reviewed. Previous Medical History PAST MEDICAL HISTORY Diagnosis Date Calculus of kidney Migraine headache with aura PMDD (premenstrual dysphoric disorder) 2019 Syncope and collapse Previous Surgical History PAST SURGICAL HISTORY Procedure Laterality Date INSERTION OF IUD 10/24/2021 removed 09/14/2023 PAST SURGICAL HISTORY OF removal of renal calculi via lithotrypsy PAST SURGICAL HISTORY OF 06/24/2014 PCP of right thumb UNLISTED PROCEDURE LACRIMAL SYSTEM 02/18/2004 DR WHEELER Family History FAMILY HISTORY Problem Relation Age of Onset Hypertension Mother Started in mid-30's Hypertension Father No Known Problems Sister No Known Problems Brother Hypertension Maternal Grandmother Hypertension Maternal Grandfather Lipids Maternal Grandfather other (FIBROMYALGIA) Paternal Grandmother Patient Allergies ALLERGIES Allergen Reactions Codeine Tramadol Itching, Other: See Comments Dizziness Current Medications Current Outpatient Medications on File Prior to Visit Medication Sig PARoxetine (PAXIL) 10 mg tablet Take 1 tablet by mouth once daily. metoprolol succinate ER (TOPROL XL) 100 mg Take 1.5 tablets by mouth once daily. baclofen 10 mg tablet Take 10 mg by mouth once daily as needed. norethindrone (AYGESTIN) 5 mg tablet Take 1 tablet by mouth once daily. galcanezumab-gnlm (EMGALITY PEN) 120 mg/mL pen Inject 2 pens (240 mg) under the skin 1 time only for initial loading dose. Refrigerate. Do not shake. galcanezumab-gnlm (EMGALITY PEN) 120 mg/mL pen Inject 1 mL subcutaneously once every month. Refrigerate. Do not shake. Patient should start on June 04, 2024. ubrogepant (UBRELVY) 100 mg tablet Take 1 tab at migraine onset. May repeat once in 2 hours as needed. DULoxetine (CYMBALTA) 60 mg capsule Take 1 capsule by mouth once daily. lisinopril (ZESTRIL) 5 mg tablet Take 1 tablet by mouth once daily. Cholecalciferol, Vitamin D3, 50 mcg (2,000 unit) cap Take 1 capsule by mouth once daily. [DISCONTINUED] Norethindrone Acet-Ethinyl Est (,) 1-20 mg-mcg per tablet Take 1 tablet by mouth once daily. No current facility-administered medications on file prior to visit. Social History Social History Tobacco Use Smoking status: Never Smokeless tobacco: Never Vaping Use Vaping status: Never Used Substance Use Topics Alcohol use: No Comment: rare Drug use: No Review of Symptoms REVIEW OF SYSTEMS See HPI, otherwise negative EXAM: BP 142/96 (BP Site: Left Arm, BP Position: Sitting, BP Cuff Size: Regular Adult) Pulse 83 Resp 16 Wt 68.5 kg (151 lb) LMP 05/02/2024 (Within Days) SpO2 99% BMI 26.75 kg/m? General Appearance: Well appearing, alert, in no acute distress, well-hydrated, well nourished.. Lungs: Lungs clear to auscultation. No wheezing, rhonchi, rales.. Heart: RRR without murmur, gallop, or rubs. No ectopy. Psychiatric: pleasant, cooperative. Health Maintenance List Asthma Action Plan Never done Asthma Control Test Never done Meningococcal B Vaccine: Consider Based On Risk(1 of 2 - Patient Seeks Protection) Never done Spirometry Never done Depression Screening Never done Anxiety Screening Never done Hepatitis C Screening Never done HIV Screening Never done BP Controlled (<130/80) Never done Cervical Cancer Screening Never done Covid-19 Vaccine(2023- season) Never done GC (Gonorrhea) Screening (18-) due on 09/12/2024 Chlamydia Screening (18-) due on 09/12/2024 DTaP,Tdap,Td Vaccine(7 - Td or Tdap) due on 09/22/2025 Annual PCP Team Chronic Disease Visit due on 10/21/2025 Hepatitis B Vaccine Completed HPV Vaccine Completed Influenza Vaccine Completed Data reviewed Previous records, office notes ASSESSMENT/PLAN: 1. Hypertension, essential - ICD9: 401.9, ICD10: I1 (more content not included)... Normal [facility] Comprehensive metabolic 2000 panelon 11-25-2024 Albumin [Mass/Vol] 4.9 g/dL Normal 3.9-4.9 [facility] Comment on above: Order Comment: Speci men Type: BLOOD SPECIMENOrdering Facility: [facility] Address: [address] [place] [address] Performed By: #### 2 842-3, DHEAS, 60928-3, 08002-5 ####[facility] [id number] [place] [address] [place] ALP [Catalytic activity/Vol] 72 U/L Normal 34-123 [facility] Comment on above: Order Comment: Speci men Type: BLOOD SPECIMENOrdering Facility: [facility] Address: [address] [place] [address] Performed By: #### 2 842-3, DHEAS, 22074-3, 29528-5 ####[facility] [id number] [place] [address] [place] ALT [Catalytic activity/Vol] 20 U/L Normal 7-38 [facility] Comment on above: Order Comment: Speci men Type: BLOOD SPECIMENOrdering Facility: [facility] Address: [address] [place] [address] Performed By: #### 2 842-3, DHEAS, 74853-5, 26158-6 ####[facility] [id number] [place] [address] [place] Anion gap [Moles/Vol] 12 mmol/L Normal 8-15 [facility] Comment on above: Order Comment: Speci men Type: BLOOD SPECIMENOrdering Facility: [facility] Address: [address] [place] [address] Performed By: #### 2 842-3, DHEAS, 94087-5, 37044-1 ####[facility] [id number] [place] [address] [place] AST [Catalytic activity/Vol] 22 U/L Normal 13-35 [facility] Comment on above: Order Comment: Speci men Type: BLOOD SPECIMENOrdering Facility: [facility] Address: [address] [place] [address] Performed By: #### 2 842-3, DHEAS, 10439-2, 67492-1 ####[facility] [id number] [place] [address] [place] Bilirubin [Mass/Vol] 0.4 mg/dL Normal 0.2-1.3 [facility] Comment on above: Order Comment: Speci men Type: BLOOD SPECIMENOrdering Facility: [facility] Address: [address] [place] [address] Performed By: #### 2 842-3, DHEAS, 12892-8, ####[facility] [id number] [place] [address] [place] Calcium [Mass/Vol] 9.8 mg/dL Normal 8.5-10.2 [facility] Comment on above: Order Comment: Speci men Type: BLOOD SPECIMENOrdering Facility: [facility] Address: [address] [place] [address] Performed By: #### 2 842-3, DHEAS, 12672-9, 04468-3 ####[facility] [id number] [place] [address] [place] Chloride [Moles/Vol] 104 mmol/L Normal 98-107 [facility] Comment on above: Order Comment: Speci men Type: BLOOD SPECIMENOrdering Facility: [facility] Address: [address] [place] [address] Performed By: #### 2 842-3, DHEAS, 14209-3, 01623-3 ####[facility] [id number] [place] [address] [place] CO2 [Moles/Vol] 23 mmol/L Normal 22-30 [facility] Comment on above: Order Comment: Speci men Type: BLOOD SPECIMENOrdering Facility: [facility] Address: [address] [place] [address] Performed By: #### 2 842-3, DHEAS, 63711-7, 60177-1 ####[facility] [id number] [place] [address] [place] Creatinine [Mass/Vol] 0.73 mg/dL Normal 0.58-0.96 [facility] Comment on above: Order Comment: Speci men Type: BLOOD SPECIMENOrdering Facility: [facility] Address: [address] [place] [address] Performed By: #### 2 842-3, DHEAS, 74326-7, 84765-6 ####[facility] [id number] [place] [address] [place] Creatinine and Glomerular filtration rate.predicted panel (S/P/Bld) 120 mL/min/1.73m??? Normal >=60 [facility] Comment on above: Order Comment: Speci men Type: BLOOD SPECIMENOrdering Facility: [facility] Address: [address] [place] [address] Result Comment: Falguni mated Glomerular Filtration Rate (eGFR) is calculated using the 2020 CKD-EPI creatinine equation. This equation utilizes serum creatinine, sex, and age as parameters. The creatinine assay has traceable calibration to isotope dilution-mass spectrometry. Refer to KDIGO guidelines for clinical interpretation. In patients with unstable renal function, e.g. those with acute kidney injury, the eGFR may not accurately reflect actual GFR. Performed By: #### 2 842-3, DHEAS, 28964-5, 78897-7 ####[facility]IA [id number] [address] [address] [place] Glucose [Mass/Vol] 90 mg/dL Normal 74-99 [facility] Comment on above: Order Comment: Speci men Type: BLOOD SPECIMENOrdering Facility: [facility] Address: [address] [place] [address] Result Comment: The [place] Diabetes Association (ADA) provides guidance for cutoff values for fasting glucose and random glucose. The ADA defines fasting as no caloric intake for at least 8 hours. Fasting plasma glucose results between 100 to 125 mg/dL indicate increased risk for diabetes (prediabetes). Fasting plasma glucose results greater than or equal to 126 mg/dL meet the criteria for diagnosis of diabetes. In the absence of unequivocal hyperglycemia, results should be confirmed by repeat testing. In a patient with classic symptoms of hyperglycemia or hyperglycemic crisis, random plasma glucose results greater than or equal to 200 mg/dL meet the criteria for diagnosis of diabetes. Reference: Standards of Medical Care in Diabetes 2016, [place] Diabetes Association. Diabetes Care. 2016.39(Suppl 1). Performed By: #### 2 842-3, DHEAS, 91492-9, 85046-8 ####[facility]IA [id number] [place] [id number] [place] Potassium [Moles/Vol] 4.0 mmol/L Normal 3.7-5.1 [facility] Comment on above: Order Comment: Speci men Type: BLOOD SPECIMENOrdering Facility: [facility] Address: [address] [place] [address] Performed By: #### 2 842-3, DHEAS, 32936-5, 71736-7 ####[facility]IA [id number] [place] [id number] [place] Protein [Mass/Vol] 7.7 g/dL Normal 6.3-8.0 [facility] Comment on above: Order Comment: Speci men Type: BLOOD SPECIMENOrdering Facility: [facility] Address: [address] [place] [address] Performed By: #### 2 842-3, DHEAS, 20766-8, 31872-2 ####[facility]CLIA [id number] [address] [address] [place] Sodium [Moles/Vol] 139 mmol/L Normal 136-144 [facility] Comment on above: Order Comment: Speci men Type: BLOOD SPECIMENOrdering Facility: [facility] Address: [address] [place] [address] Performed By: #### 2 842-3, DHEAS, 84417-6, 28648-3 ####[facility] [id number] [place] [address] [place] Urea nitrogen [Mass/Vol] 15 mg/dL Normal 7-21 [facility] Comment on above: Order Comment: Speci men Type: BLOOD SPECIMENOrdering Facility: [facility] Address: [address] [place] [address] Performed By: #### 2 842-3, DHEAS, 24096-2, 28802-0 ####[facility] [id number] [place] [address] [place] DHEA-S BLDon 11-25-2024 DHEA-S [Mass/Vol] 298.4 ug/dL Normal 148.0-407.0 [facility] Comment on above: Order Comment: Speci men Type: BLOOD SPECIMENOrdering Facility: [facility] Address: [address] [place] [address] Result Comment: Refe rence ranges are age and gender specific. For additional information, reference range tables can be found in the laboratory test directory. The normal values are based on the following source: Dehydroepiandrosterone sulfate (DHEA S) [package insert V 17.0 Nauruan]. [facility], [place], [place]: June 2013. Performed By: #### 2 842-3, DHEAS, 45026-7, 19441-8 ####[facility]IA [id number] [address] [place] [address] [place] Ferritin SerPl-mCncon 2024 Ferritin [Mass/Vol] 35.6 ng/mL Normal 14.7-205.1 [facility] Comment on above: Order Comment: Speci men Type: BLOOD SPECIMEN Ordering Facility: [facility] Address: [address] [place] [address] Performed By: #### 2 0448-7 #### [facility] CLIA [id number] [address] [place], [place] [address] [place] [address] [place] HYDROXYPROGESTERONE-17on 17-HYDROXYPROGESTER ONE QUANTITATIVE BY HPLC-MS/MS, SERUM OR PLASMA 17.36 ng/dL Normal <=206.00 [facility] Comment on above: Order Comment: Speci cesar Type: BLOOD SPECIMEN Ordering Facility: [facility] Address: [address] [place] [address] Result Comment: INTERPRETIVE INFORMATION for 17-Hydroxyprogesterone in females: Follicular 15 to 70 ng/dL Luteal 35 to 290 ng/dL REFERENCE INTERVAL: 17-Hydroxyprogesterone Qnt, HPLC-MS/MS Access complete set of age- and/or gender-specific reference intervals for this test in the [facility] Test Directory ([employer]). This test was developed and its performance characteristics determined by [facility]. It has not been cleared or approved by the [place] Food and Drug Administration. This test was performed in a CLIA certified laboratory and is intended for clinical purposes. Performed By: [facility] [address] [place] [id number] Director Corporate: Kuldeep Allan MD, PhD CLIA Number: [id number] Performed By: #### H PROG #### [facility] CLIA [id number] [address] [place] [address] HbA1c (Bld)on 11-25-2024 Average glucose Estimated from glycated hemoglobin (Bld) [Mass/Vol] 91 mg/dL [facility] Comment on above: eAG: (Estimated aver age glucose) is a calculated value from HgbA1c and is contact representative of the average blood glucose level in the last 2-3 month period. HbA1c (Bld) [Mass fraction] 4.8 % 4.3 - 5.6 % [facility] Comment on above: [place] Diabetes [employer] sociation guidelines indicate that patients with HgbA1c in the range 5.7-6.4% are at increased risk for development of diabetes, and intervention by lifestyle modification may be beneficial. HgbA1c greater or equal to 6.5% is considered diagnostic of diabetes. [facility] Average glucose Estimated from glycated hemoglobin (Bld) [Mass/Vol] 91 mg/dL Normal [facility] Comment on above: Order Comment: Maya guerrero Type: BLOOD SPECIMEN Ordering Facility: [facility] Address: [address] [place] [address] Result Comment: eAG: (Estimated average glucose) is a calculated value from HgbA1c and is contact representative of the average blood glucose level in the last 2-3 month period. Performed By: #### 2 0448-7 #### [facility] CLIA [id number] [address] [place] [address] [place] HbA1c (Bld) [Mass fraction] 4.8 % Normal 4.3-5.6 [facility] Comment on above: Order Comment: Maya guerrero Type: BLOOD SPECIMEN Ordering Facility: [facility] Address: [address] [place] [address] Result Comment: [place] Diabetes Association guidelines indicate that patients with HgbA1c in the range 5.7-6.4% are at increased risk for development of diabetes, and intervention by lifestyle modification may be beneficial. HgbA1c greater or equal to 6.5% is considered diagnostic of diabetes. Performed By: #### 2 0448-7 #### [facility] CLIA [id number] [address] [place] [address] [place] Insulin SerPl-aCncon 025 Insulin Qn 9.7 u[IU]/mL Normal 3.0-25.0 [facility] Comment on above: Order Comment: Maya guerrero Type: BLOOD SPECIMEN Ordering Facility: [facility] Address: [address] [place] [address] Performed By: #### 2 0448-7 #### [facility] CLIA [id number] [address] [place] [address] [place] Iron and Iron binding capaci ty panelon 11-25-2024 Iron [Mass/Vol] 83 ug/dL Normal 41-186 [facility] Comment on above: Order Comment: Speci men Type: BLOOD SPECIMENOrdering Facility: [facility] Address: [address] [place] [address] Performed By: #### 2 842-3, DHEAS, 72660-1, 69489-1 ####[facility] [id number] [place] [address] [place] Iron binding capacity [Mass/Vol] 370 ug/dL Normal 232-386 [facility] Comment on above: Order Comment: Speci men Type: BLOOD SPECIMENOrdering Facility: [facility] Address: [address] [place] [address] Performed By: #### 2 842-3, DHEAS, 34662-8, 74918-5 ####[facility] [id number] [place] [address] [place] Iron/TIBC [Molar ratio] 22.4 % Normal 15.0-57.0 [facility] Comment on above: Order Comment: Speci men Type: BLOOD SPECIMENOrdering Facility: [facility] Address: [address] [place] [address] Performed By: #### 2 842-3, DHEAS, 94501-6, 14354-3 ####[facility] [id number] [place] [id number] [place] Prolactin SerPl-mCncon 11-25 Prolactin [Mass/Vol] 14.3 ng/mL Normal 4.4-33.8 [facility] Comment on above: Order Comment: Speci men Type: BLOOD SPECIMENOrdering Facility: [facility] Address: [address] [place] [address] Result Comment: Prol actin test is performed using the [employer] Electrochemiluminescence Immunoassay method. Results obtained with different methods or kits cannot be used interchangeably. Performed By: #### 2 842-3, DHEAS, 65384-5, 70760-8 ####[facility] [id number] [place] [address] [place] T3 SerPl-mCncon 11-25-2024 T3 [Mass/Vol] 110 ng/dL Normal 79-165 [facility] Comment on above: Order Comment: Speci men Type: BLOOD SPECIMEN Ordering Facility: [facility] Address: [address] [place] [address] Performed By: #### 2 0448-7 #### [facility] CLIA [id number] [address] [place] [address] [place] T4 Free SerPl-mCncon 025 Free T4 [Mass/Vol] 1.1 ng/dL Normal 0.9-1.7 [facility] Comment on above: Order Comment: Speci men Type: BLOOD SPECIMEN Ordering Facility: [facility] Address: [address] [place] [address] Performed By: #### 2 0448-7 #### [facility] CLIA [id number] [address] [place] [address] [place] TESTOSTERONE, FREE AND TOTAL , BY EQUILIBRIUM ULTRAFILTRATION MASS SPECTROMETRYon 11-25-2024 Testosterone [Mass/Vol] 19.1 ng/dL Normal 10.0-55.0 [facility] Comment on above: Order Comment: Speci men Type: BLOOD SPECIMEN Ordering Facility: [facility] Address: [address] [place] [address] Performed By: #### H PRO #### [facility] CLIA [id number] [address] [place] [address] Testosterone Free [Mass/Vol] 0.49 ng/dL Normal 0.10-0.85 [facility] Comment on above: Order Comment: Speci men Type: BLOOD SPECIMEN Ordering Facility: [facility] Address: [address] [place] [address] Performed By: #### H PROG #### [facility] [employer] CLIA [id number] [address] [place] [address] Testosterone Free/Testosterone.t otal [Mass fraction] 2.57 % Normal 0.50-2.80 [facility] Comment on above: Order Comment: Speci men Type: BLOOD SPECIMEN Ordering Facility: [facility] Address: [address] [place] [address] Performed By: #### H PROG #### [facility] [employer] CLIA [id number] [address] [place] [address] TSH SerPl-aCncon 11-25-2024 TSH Qn 1.720 m[IU]/L Normal 0.270-4.200 [facility] Comment on above: Order Comment: Speci men Type: BLOOD SPECIMEN Ordering Facility: [facility] Address: [address] [place] [address] Result Comment: If t he patient is , TSH reference range varies by gestational period: First Trimester (weeks 9-12): 0.180-2.990 mIU/L Second Trimester: 0.110-3.980 mIU/L Third Trimester: 0.480-4.710 mIU/L Yury Marlow et al. A Practical Approach for the Verifications and Determination of Site- and Trimester-Specific Reference Intervals for Thyroid Function tests in . Thyroid, 2019:29:3:412-420. Khanh E, et al. 2017 Guidelines of the [place] Thyroid Association for the Diagnosis and Management of Thyroid Disease during and the . Thyroid, 2017:27:3:315-389. Performed By: #### 2 0448-7 #### [facility] CLIA [id number] [address] [place], [place] [address]K [id number] [place] [address] [place] Urinalysis complete panel (U )on 11-25-2024 Bacteria LM.HPF (Urine sed) [#/Area] Negative Negative /HPF [facility] Bilirubin Ql (U) Negative Negative [facility] Clarity (Unsp spec) Clear Clear [facility] Color (U) Yellow Yellow [facility] Epithelial cells LM.HPF (Urine sed) [#/Area] None Seen /HPF [facility] Glucose Test strip (U) [Mass/Vol] Negative Negative [facility] Hemoglobin Ql (U) Negative Negative [facility] Hyaline casts (Urine sed) [#/Area] 0 /[LPF] 0 /LPF [facility] Interpretation and review of laboratory results Abnormal [facility] Ketones Ql (U) Negative Negative [facility] Leukocyte esterase Test strip Ql (U) Trace Abnormal Negative [facility] Nitrite Ql (U) Negative Negative [facility] pH (U) 6.5 [pH] NINF - 8.5 [facility] Protein (U) [Mass/Vol] Trace Abnormal Negative [facility] RBC LM.HPF (Urine sed) [#/Area] 0-2 /HPF 0-2 /HPF [facility] Specific gravity (U) [Rel density] 1.025 1.005 - 1.030 [facility] Urobilinogen Ql (U) 0.2 EU/dL 0.2-1.0 EU/dL [facility] WBC LM.HPF (Urine sed) [#/Area] 0-5 /HPF 0-5 /HPF [facility] This test was develo ped and its performance characteristics determined by [facility]'s [facility] [place] ([facility]). It has not been cleared or approved by the FDA. [facility] is regulated under CLIA as qualified to perform high-complexity testing. This test is used for clinical purposes. It should not be regarded as investigational or for research. [facility] Bacteria LM.HPF (Urine sed) [#/Area] Negative Normal Negative [facility] Comment on above: Order Comment: Speci men Type: BLOOD SPECIMEN Ordering Facility: [facility] Address: [address] [place] [address] Performed By: #### 2 0448-7 #### [facility] CLIA [id number] [address] [place] [address] [place] Bilirubin Ql (U) Negative Normal Negative [facility] Comment on above: Order Comment: Speci men Type: BLOOD SPECIMEN Ordering Facility: [facility] Address: [address] [place] [address] Performed By: #### 2 0448-7 #### [facility] CLIA [id number] [address] [place] [id number] [place] Clarity (Unsp spec) Clear Normal Clear [facility] Comment on above: Order Comment: Speci men Type: BLOOD SPECIMEN Ordering Facility: [facility] Address: [address] [place] [address] Performed By: #### 2 0448-7 #### [facility] CLIA [id number] [facility] [place] [address] [place] Color (U) Yellow Normal Yellow [facility] Comment on above: Order Comment: Speci men Type: BLOOD SPECIMEN Ordering Facility: [facility] Address: [address] [place] [address] Performed By: #### 2 0448-7 #### [facility] CLIA [id number] [address] [place] [address] [place] Epithelial cells LM.HPF (Urine sed) [#/Area] None Seen Normal [facility] Comment on above: Order Comment: Speci men Type: BLOOD SPECIMEN Ordering Facility: [facility] Address: [address] [place] [address] Performed By: #### 2 0448-7 #### [facility] CLIA [id number] [address] [place] [address] [place] Glucose Test strip (U) [Mass/Vol] Negative Normal Negative [facility] Comment on above: Order Comment: Speci men Type: BLOOD SPECIMEN Ordering Facility: [facility] Address: [address] [place], [place] [id number] Performed By: #### 2 0448-7 #### [facility] CLIA [id number] [address] [place] [address] [place] Hemoglobin Ql (U) Negative Normal Negative [facility] Comment on above: Order Comment: Speci men Type: BLOOD SPECIMEN Ordering Facility: [facility] Address: [address] [place] [address] Performed By: #### 2 0448-7 #### [facility] CLIA [id number] [address] [place] [address] [place] Hyaline casts (Urine sed) [#/Area] 0 /[LPF] Normal 0 /LPF [facility] Comment on above: Order Comment: Speci men Type: BLOOD SPECIMEN Ordering Facility: [facility] Address: [address] [place] [address] Performed By: #### 2 0448-7 #### [facility] CLIA [id number] [address] [place] [address] [place] Ketones Ql (U) Negative Normal Negative [facility] Comment on above: Order Comment: Speci men Type: BLOOD SPECIMEN Ordering Facility: [facility] Address: [address] [place] [address] Performed By: #### 2 0448-7 #### [facility] CLIA [id number] [address] [place] [address] [place] Leukocyte esterase Test strip Ql (U) Trace Abnormal Negative [facility] Comment on above: Order Comment: Speci men Type: BLOOD SPECIMEN Ordering Facility: [facility] Address: [address] [place] [address] Performed By: #### 2 0448-7 #### [facility] CLIA [id number] [address] [place] [address] [place] Nitrite Ql (U) Negative Normal Negative [facility] Comment on above: Order Comment: Speci men Type: BLOOD SPECIMEN Ordering Facility: [facility] Address: [address] [place] [address] Performed By: #### 2 0448-7 #### [facility] CLIA [id number] [address] [place] [address] [place] pH (U) 6.5 [pH] Normal <8.5 [facility] Comment on above: Order Comment: Speci men Type: BLOOD SPECIMEN Ordering Facility: [facility] Address: [address] [place] [address] Performed By: #### 2 0448-7 #### [facility] CLIA [id number] [address] [place] [address] [place] Protein (U) [Mass/Vol] Trace Abnormal Negative [facility] Comment on above: Order Comment: Speci men Type: BLOOD SPECIMEN Ordering Facility: [facility] Address: [address] [place] [address] Performed By: #### 2 0448-7 #### [facility] CLIA [id number] [address] [place] [address] [place] RBC LM.HPF (Urine sed) [#/Area] 0-2 /HPF Normal 0-2 /HPF [facility] Comment on above: Order Comment: Speci men Type: BLOOD SPECIMEN Ordering Facility: [facility] Address: [address] [place] [address] Performed By: #### 2 0448-7 #### [facility] CLIA [id number] [address] [place] [address] [place] Specific gravity (U) [Rel density] 1.025 Normal 1.005-1.030 [facility] Comment on above: Order Comment: Speci men Type: BLOOD SPECIMEN Ordering Facility: [facility] Address: [address] [place] [address] Performed By: #### 2 0448-7 #### [facility] CLIA [id number] [address] [place] [address] [place] Urobilinogen Ql (U) 0.2 EU/dL Normal 0.2-1.0 EU/dL [facility] Comment on above: Order Comment: Speci men Type: BLOOD SPECIMEN Ordering Facility: [facility] Address: [address] [place] [address] Performed By: #### 2 0448-7 #### [facility] CLIA [id number] [address] [place] [address] [place] WBC LM.HPF (Urine sed) [#/Area] 0-5 /HPF Normal 0-5 /HPF [facility] Comment on above: Order Comment: Speci men Type: BLOOD SPECIMEN Ordering Facility: [facility] Address: [address] [place] [address] Performed By: #### 2 0448-7 #### [facility] CLIA [id number] [address] [place] [address] [place] CNOVon 10-21-2024 CNOV Office Visit (BRENDAWS ) MARICRUZ TEJADA ([id number]) 1 F Date Time Provider Department 10/21/24 10:00 AM KELSI BERMUDEZ During your visit today, we recorded the following information about you: Pulse Respiration Blood pressure Weight 117/minute 16/minute 146/97 67.9 kg Kelsi Bermudez APRN.SENIOR ACCOUNT CLERK 10/22/2024 6:38 PM Signed Chief Complaint Patient presents with: Follow Up: Hypertension and tachycardia HPI Maricruz Tejada is a 19 year old female who presents here today for Above Complaints. HTN, tachycardia-when she works out ends up with tachycardia and a bad h/a. R/t her BP. Does get anxiety after this because her heart is racing. But doesn't have any anxiety prior to this. Resting HR has been 100's. Running 200's. Walking 150's. BP averaging 150's/90-100's. Has bee doing PT for her shoulder and even during this her HR goes up with minimal exercise. Past medical history, appointments, medications, allergies reviewed. Previous Medical History PAST MEDICAL HISTORY Diagnosis Date Calculus of kidney Migraine headache with aura PMDD (premenstrual dysphoric disorder) 2019 Syncope and collapse Previous Surgical History PAST SURGICAL HISTORY Procedure Laterality Date INSERTION OF IUD 10/24/2021 removed 09/14/2023 PAST SURGICAL HISTORY OF removal of renal calculi via lithotrypsy PAST SURGICAL HISTORY OF 06/24/2014 PCP of right thumb UNLISTED PROCEDURE LACRIMAL SYSTEM 02/18/2004 DR WHEELER Family History FAMILY HISTORY Problem Relation Age of Onset Hypertension Mother Started in mid-30's Hypertension Father No Known Problems Sister No Known Problems Brother Hypertension Maternal Grandmother Hypertension Maternal Grandfather Lipids Maternal Grandfather other (FIBROMYALGIA) Paternal Grandmother Patient Allergies ALLERGIES Allergen Reactions Codeine Tramadol Itching, Other: See Comments Dizziness Current Medications Current Outpatient Medications on File Prior to Visit Medication Sig PARoxetine (PAXIL) 10 mg tablet Take 1 tablet by mouth once daily. baclofen 10 mg tablet Take 10 mg by mouth once daily as needed. metoprolol succinate ER (TOPROL XL) 100 mg Take 1 tablet by mouth once daily. norethindrone (AYGESTIN) 5 mg tablet Take 1 tablet by mouth once daily. galcanezumab-gnlm (EMGALITY PEN) 120 mg/mL pen Inject 2 pens (240 mg) under the skin 1 time only for initial loading dose. Refrigerate. Do not shake. galcanezumab-gnlm (EMGALITY PEN) 120 mg/mL pen Inject 1 mL subcutaneously once every month. Refrigerate. Do not shake. Patient should start on June 04, 2024. ubrogepant (UBRELVY) 100 mg tablet Take 1 tab at migraine onset. May repeat once in 2 hours as needed. DULoxetine (CYMBALTA) 60 mg capsule Take 1 capsule by mouth once daily. lisinopril (ZESTRIL) 5 mg tablet Take 1 tablet by mouth once daily. Cholecalciferol, Vitamin D3, 50 mcg (2,000 unit) cap Take 1 capsule by mouth once daily. etodolac (LODINE) 400 mg tablet Take 1 tablet by mouth two times a day. (Patient not taking: Reported on 08/29/2024) [DISCONTINUED] Norethindrone Acet-Ethinyl Est (JUNE,) 1-20 mg-mcg per tablet Take 1 tablet by mouth once daily. No current facility-administered medications on file prior to visit. Social History Social History Tobacco Use Smoking status: Never Smokeless tobacco: Never Vaping Use Vaping status: Never Used Substance Use Topics Alcohol use: No Comment: rare Drug use: No Review of Symptoms REVIEW OF SYSTEMS See HPI, otherwise negative EXAM: Wt 67.9 kg (149 lb 11.1 oz) LMP 05/02/2024 (Within Days) BMI 26.52 kg/m? General Appearance: Well appearing, alert, in no acute distress, well-hydrated, well nourished.. Lungs: Lungs clear to auscultation. No wheezing, rhonchi, rales.. Heart: RRR without murmur, gallop, or rubs. No ectopy. Psychiatric: pleasant, cooperative. Health Maintenance List Asthma Action Plan Never done Asthma Control Test Never done Meningococcal B Vaccine: Consider Based On Risk(1 of 2 - Patient Seeks Protection) Never done Spirometry Never done Depression Screening Never done Anxiety Screening Never done Hepatitis C Screening Never done HIV Screening Never done BP Controlled (<130/80) Never done Cervical Cancer Screening Never done Covid-19 Vaccine( season) Never done GC (Gonorrhea) Screening (18-24) due on 09/12/2024 Chlamydia Screening (18-24) due on 09/12/2024 Annual PCP Team Chronic Disease Visit due on 07/15/2025 DTaP,Tdap,Td Vaccine(7 - Td or Tdap) due on 09/22/2025 Hepatitis B Vaccine Completed HPV Vaccine Completed Influenza Vaccine Completed Data reviewed Previous records, office notes ASSESSMENT/PLAN: 1. Depression, unspecified depression type - ICD9: 311, ICD10: F32.A - PAROXETINE 10 MG TABLET 2. Stress - ICD9: V62.89, ICD10: F43.9 - PAROXE (more content not included)... Normal [facility] [id number] 10-01-2024 [id number] HNO ID: [id number] Author: RAYA AMBRIZ, PT Service: ? Author Type: Physical Therapist Type: [id number] Filed: 10/01/2024 10:23 Note Text: [facility] Physical Therapy Plan of Care Certification Patient Name: Maricruz Tejada : 2005 [facility] #: [id number] Date: 10/01/2024 To: Federico Monroy V, DO From Therapist: Raya Ambriz PT RE: Patient Certification/ Recertification Your review, approval and electronic signature are required in order to comply with Payor: [facility] / Plan: [facility] CHOICE PLUS / Product Type: HMO / regulations. The identified Physical Therapy PLAN OF CARE for the patient is as follows: M67.911 Disorder of right rotator cuff (primary encounter diagnosis) PLAN OF CARE UPDATE: Assessment: Maricruz Tejada demonstrates minimal improvement in sleeping. The patient has progressed toward goals. Patient continues to present with impairments in ADL's, flexibility, independence in exercise, joint mobility, overall function, patient reported outcome measures, posture, range of motion, strength, symptom management, and tissue tenderness that interfere with lifting, reaching behind back, reaching overhead, use hand with arm at shoulder level, working . Current prognosis is Good due to: positive past response to therapy, within-session changes, good support system/ coping skills, current objective clinical presentation, good overall health status . The patient will benefit from continued skilled therapy services to meet the updated goals for this plan of care as noted below. Goals for Episode of Care: established 09/02/24 Goals updated on 10/01/2024. [place] in home exercise program. -- MET Patient will decrease pain to 1-2/10 with functional activities to allow patient to improve tolerance for ADLs. -- PROGRESSING, 8/10 with reaching overhead to braid the hair Patient will increase active ROM of right shoulder abduction to 160 degrees or greater without increased symptoms to allow pt to to improve postural alignment and to improve performance of ADLs. -- PROGRESSING Patient will increase flexibility of R UT and levator scapulae to WNL to improve ability to maintain proper posture, improve mechanics, and decrease pain. -- PROGRESSING PECTORALIS Perform reaching behind the back and overhead with decreased report of symptoms/pain in 6 weeks. -- PROGRESSING Improve postural awareness. -- PROGRESSING Patient Goals: reduce R shoulder pain -- PROGRESSING Time Frame for Goals and Treatment : 10/28/24 Patient Goals: reduce R shoulder pain Planned Interventions, Frequency, and Duration: 1x/week, 6 weeks Total Number of Visits Planned: 6 Patient to be seen for Therapeutic exercise (36089), Neuromuscular re-education (94847), Manual therapy (14435), Therapeutic activities (75458), Self-nursing home management (71310) PLAN FOR NEXT VISIT: assess symptom response to dry needling. consider levator insertion and scapular needling next visit For further details regarding this patient refer to the Physical Therapy electronically documented visit dated 10/01/2024. Provider Attestation I have reviewed the treatment plan for Maricruz Tejada, [facility] [id number] for the period of 10/01/24 -- 11/12/24, established on 10/01/2024. Signature certifies the need for therapy services. Normal [facility] CNTHERAPYon 10-01-2024 CNTHERAPY OT/PT/Speech Visit ( PTWS) TEJADAMARICRUZ JONAS ([id number]) 1 F Date Time Provider Department 10/01/24 9:45 AM RAYA AMBRIZ PTWS Date Time Provider Department Center 10/01/2024 9:45 AM [id number] AMBRIZ PTWS Alvaro Taylor Reason for Visit: PT Progress Note [1596] Primary Visit Diagnosis:Disorder of right rotator cuff [M67.911] Allergies As of Date: 10/01/2024 Noted Allergy Reaction CODEINE 07/03/2007 TRAMADOL 06/30/2014 9 - Itching 14 - Other: See Comments Comments: Dizziness Date Reviewed: 08/29/2024 Reviewed by: Daisy Bennett MA - Fully Assessed Prescriptions as of 10/01/2024 - PARoxetine (PAXIL) 10 mg tablet Take 1 tablet by mouth once daily. - baclofen 10 mg tablet Take 10 mg by mouth once daily as needed. - etodolac (LODINE) 400 mg tablet Take 1 tablet by mouth two times a day. - metoprolol succinate ER (TOPROL XL) 100 mg Take 1 tablet by mouth once daily. - norethindrone (AYGESTIN) 5 mg tablet Take 1 tablet by mouth once daily. - galcanezumab-gnlm (EMGALITY PEN) 120 mg/mL pen Inject 2 pens (240 mg) under the skin 1 time only for initial loading dose. Refrigerate. Do not shake. - galcanezumab-gnlm (EMGALITY PEN) 120 mg/mL pen Inject 1 mL subcutaneously once every month. Refrigerate. Do not shake. Patient should start on June 04, 2024. - ubrogepant (UBRELVY) 100 mg tablet Take 1 tab at migraine onset. May repeat once in 2 hours as needed. - DULoxetine (CYMBALTA) 60 mg capsule Take 1 capsule by mouth once daily. - lisinopril (ZESTRIL) 5 mg tablet Take 1 tablet by mouth once daily. - Cholecalciferol, Vitamin D3, 50 mcg (2,000 unit) cap Take 1 capsule by mouth once daily. - Norethindrone Acet-Ethinyl Est (JUNE,) 1-20 mg-mcg per tablet (Discontinued) Take 1 tablet by mouth once daily. [facility] CNTHERAPYon 09-17-2024 CNTHERAPY OT/PT/Speech Visit ( PTWS) MARICRUZ TEJADA ([id number]) 1 F Date Time Provider Department 09/17/24 9:45 AM RAYA AMBRIZ PTNNAMDI Date Time Provider Department Center 09/17/2024 9:45 AM [id number] AMBRIZ PTNNAMDI [place] Reason for Visit: Physical Therapy [503] Primary Visit Diagnosis:Disorder of right rotator cuff [M67.911] Allergies As of Date: 09/17/2024 Noted Allergy Reaction CODEINE 07/03/2007 TRAMADOL 06/30/2014 9 - Itching 14 - Other: See Comments Comments: Dizziness Date Reviewed: 08/29/2024 Reviewed by: Daisy Bennett MA - Fully Assessed Prescriptions as of 09/17/2024 - PARoxetine (PAXIL) 10 mg tablet Take 1 tablet by mouth once daily. - baclofen 10 mg tablet Take 10 mg by mouth once daily as needed. - etodolac (LODINE) 400 mg tablet Take 1 tablet by mouth two times a day. - metoprolol succinate ER (TOPROL XL) 100 mg Take 1 tablet by mouth once daily. - norethindrone (AYGESTIN) 5 mg tablet Take 1 tablet by mouth once daily. - galcanezumab-gnlm (EMGALITY PEN) 120 mg/mL pen Inject 2 pens (240 mg) under the skin 1 time only for initial loading dose. Refrigerate. Do not shake. - galcanezumab-gnlm (EMGALITY PEN) 120 mg/mL pen Inject 1 mL subcutaneously once every month. Refrigerate. Do not shake. Patient should start on June 04, 2024. - ubrogepant (UBRELVY) 100 mg tablet Take 1 tab at migraine onset. May repeat once in 2 hours as needed. - DULoxetine (CYMBALTA) 60 mg capsule Take 1 capsule by mouth once daily. - lisinopril (ZESTRIL) 5 mg tablet Take 1 tablet by mouth once daily. - Cholecalciferol, Vitamin D3, 50 mcg (2,000 unit) cap Take 1 capsule by mouth once daily. - Norethindrone Acet-Ethinyl Est (,) 1-20 mg-mcg per tablet (Discontinued) Take 1 tablet by mouth once daily. Sports Director: Addendum Therapy (PT/OT/Speech/Resp) ID: [id number] 09/17/2024 10:13 AM Author: RAYA AMBRIZ Signed by RAYA AMBRIZ PT on 09/17/2024 at 10:14 AM * * * This document replaces document [id number] * * * Document text: Program_ID:[id number] Access Code: [email or web address] URL: [email or web address]/ Date: 09-17-2024 Prepared By: Raya Ambriz Program Notes Exercises - Sidelying Shoulder External Rotation - 1-2 x daily - 7 x weekly - 4 sets - 15 reps - Wall Push Up - 1-2 x daily - 7 x weekly - 4 sets - 12 reps - Prone Scapular Retraction Y - 1-2 x daily - 7 x weekly - 4 sets - 12 reps - Prone W Scapular Retraction - 1-2 x daily - 7 x weekly - 4 sets - 12 reps - Standing Bicep Stretch at Wall - 1 x daily - 7 x weekly - 3 sets - reps - Shoulder Flexion Serratus Activation with Resistance - 1 x daily - 7 x weekly - 4 sets - reps [facility] THERAPY NTon 09-17-2024 THERAPY NT HNO ID: [id number] Author: RAYA AMBRIZ, OCTAVIO Service: ? Author Type: Physical Therapist Type: Therapy (PT/OT/Speech/Resp) Filed: 09/17/2024 10:14 Note Text: Program_ID:[id number] Access Code: [email or web address] URL: [email or web address] [email or web address]/ Date: 09-17-2024 Prepared By: Raya Ambriz Program Notes Exercises - Sidelying Shoulder External Rotation - 1-2 x daily - 7 x weekly - 4 sets - 15 reps - Wall Push Up - 1-2 x daily - 7 x weekly - 4 sets - 12 reps - Prone Scapular Retraction Y - 1-2 x daily - 7 x weekly - 4 sets - 12 reps - Prone W Scapular Retraction - 1-2 x daily - 7 x weekly - 4 sets - 12 reps - Standing Bicep Stretch at Wall - 1 x daily - 7 x weekly - 3 sets - reps - Shoulder Flexion Serratus Activation with Resistance - 1 x daily - 7 x weekly - 4 sets - reps [facility] CNTHERAPYon 09-09-2024 CNTHERAPY OT/PT/Speech Visit ( PTWS) MARICRUZ TEJADA ([id number]) 1 F Date Time Provider Department 09/09/24 11:15 AM RAYA AMBRIZ PTNNAMDI Date Time Provider Department [place] 09/09/2024 11:15 AM [id number] AMBRIZ PTNNAMDI [place] Reason for Visit: Physical Therapy [503] Primary Visit Diagnosis:Disorder of right rotator cuff [M67.911] Allergies As of Date: 09/09/2024 Noted Allergy Reaction CODEINE 07/03/2007 TRAMADOL 06/30/2014 9 - Itching 14 - Other: See Comments Comments: Dizziness Date Reviewed: 08/29/2024 Reviewed by: Daisy Bennett MA - Fully Assessed Prescriptions as of 09/09/2024 - baclofen 10 mg tablet Take 10 mg by mouth once daily as needed. - etodolac (LODINE) 400 mg tablet Take 1 tablet by mouth two times a day. - metoprolol succinate ER (TOPROL XL) 100 mg Take 1 tablet by mouth once daily. - norethindrone (AYGESTIN) 5 mg tablet Take 1 tablet by mouth once daily. - PARoxetine (PAXIL) 10 mg tablet Take 1 tablet by mouth once daily. - galcanezumab-gnlm (EMGALITY PEN) 120 mg/mL pen Inject 2 pens (240 mg) under the skin 1 time only for initial loading dose. Refrigerate. Do not shake. - galcanezumab-gnlm (EMGALITY PEN) 120 mg/mL pen Inject 1 mL subcutaneously once every month. Refrigerate. Do not shake. Patient should start on June 04, 2024. - ubrogepant (UBRELVY) 100 mg tablet Take 1 tab at migraine onset. May repeat once in 2 hours as needed. - DULoxetine (CYMBALTA) 60 mg capsule Take 1 capsule by mouth once daily. - lisinopril (ZESTRIL) 5 mg tablet Take 1 tablet by mouth once daily. - Cholecalciferol, Vitamin D3, 50 mcg (2,000 unit) cap Take 1 capsule by mouth once daily. - Norethindrone Acet-Ethinyl Est (,) 1-20 mg-mcg per tablet (Discontinued) Take 1 tablet by mouth once daily. Sports Director: Addendum Therapy (PT/OT/Speech/Resp) ID: [id number] 09/09/2024 11:39 AM Author: RAYA AMBRIZ Signed by RAYA AMBRIZ PT on 09/09/2024 at 11:40 AM * * * This document replaces document [id number] * * * Document text: Program_ID:[id number] Access Code: [email or web address] URL: [email or web address] Date: 09-09-2024 Prepared By: Raya Ambriz Program Notes Exercises - Standing Shoulder Row with Anchored Resistance - 1 x daily - 7 x weekly - 4 sets - 12 reps - Shoulder extension with resistance - Neutral - 1 x daily - 7 x weekly - 4 sets - 12 reps - Sidelying Shoulder External Rotation - 1 x daily - 7 x weekly - 4 sets - 15 reps - Tricep Push Up on Wall - 1 x daily - 7 x weekly - 4 sets - 12 reps [facility] THERAPY NTon 09-09-2024 THERAPY NT HNO ID: [id number] Author: RAYA AMBRIZ PT Service: ? Author Type: Physical Therapist Type: Therapy (PT/OT/Speech/Resp) Filed: 09/09/2024 11:40 Note Text: Program_ID:[id number] Access Code: [email or web address] URL: [email or web address] [employer]/ Date: 09-09-2024 Prepared By: Raya Ambriz Program Notes Exercises - Standing Shoulder Row with Anchored Resistance - 1 x daily - 7 x weekly - 4 sets - 12 reps - Shoulder extension with resistance - Neutral - 1 x daily - 7 x weekly - 4 sets - 12 reps - Sidelying Shoulder External Rotation - 1 x daily - 7 x weekly - 4 sets - 15 reps - Tricep Push Up on Wall - 1 x daily - 7 x weekly - 4 sets - 12 reps [facility] [id number] 09-02-2024 [id number] HNO ID: [id number] Author: RAYA AMBRIZ PT Service: ? Author Type: Physical Therapist Type: [id number] Filed: 09/02/2024 10:58 Note Text: [facility] Physical Therapy Plan of Care Certification Patient Name: Maricruz Tejada : 2005 [facility] #: [id number] Date: 09/02/2024 To: Federico Monroy V DO From Therapist: Raya Ambriz PT RE: Patient Certification/ Recertification Your review, approval and electronic signature are required in order to comply with Payor: [facility] / Plan: [facility] CHOICE PLUS / Product Type: HMO / regulations. The identified Physical Therapy PLAN OF CARE for the patient is as follows: M67.911 Disorder of right rotator cuff (primary encounter diagnosis) PLAN OF CARE: Assessment: Maricruz Tejada presents with diagnosis of disorder of right rotator cuff that interferes with lifting, reaching behind back, reaching overhead, use hand with arm at shoulder level, sleeping, working . The patient presents with impairments in ADL's, flexibility, independence in exercise, joint mobility, overall function, patient reported outcome measures, posture, range of motion, strength, symptom management, and tissue tenderness. PROMIS? (Patient-Reported Outcomes Measurement Information System) scores were reviewed and identified as within normal limits. Prognosis for therapy is Good due to: current objective clinical presentation . The patient will benefit from skilled therapy services to meet the goals established for this plan of care as noted below. Goals for Episode of Care: established 09/02/24 [place] in home exercise program. Patient will decrease pain to 1-2/10 with functional activities to allow patient to improve tolerance for ADLs. Patient will increase active ROM of right shoulder abduction to 160 degrees or greater without increased symptoms to allow pt to to improve postural alignment and to improve performance of ADLs. Patient will increase flexibility of R UT and levator scapulae to WNL to improve ability to maintain proper posture, improve mechanics, and decrease pain. Perform reaching behind the back and overhead with decreased report of symptoms/pain in 6 weeks. Improve postural awareness. Patient Goals: reduce R shoulder pain Time Frame for Goals and Treatment : 10/28/24 Planned Interventions, Frequency, and Duration: Current Frequency: 2x/week Duration: 8 weeks Total Number of Visits Planned: 16 Planned Treatment Interventions: Therapeutic exercise (69164), Neuromuscular re-education (14192), Manual therapy (10487), Therapeutic activities (95303), Self-nursing home management (50373) PLAN FOR NEXT VISIT: Patient demonstrates good understanding of plan of care and treatment. The above goals and plan of care were discussed and agreed upon by patient/family. For further details regarding this patient refer to the Physical Therapy electronically documented visit dated 09/02/2024. Provider Attestation I have reviewed the treatment plan for Maricruz Tejada [facility] [id number] for the period of 09/02/24 -- 10/14/24, established on 09/02/2024. Signature certifies the need for therapy services. [facility] CNTHERAPYon 09-02-2024 CNTHERAPY OT/PT/Speech Visit ( PTWS) MARIRCUZ TEJADA ([id number]) 1 F Date Time Provider Department 09/02/24 9:45 AM RAYA AMBRIZ PTWS Date Time Provider Department Center 09/02/2024 9:45 AM [id number] AMBRIZ PTWS Alvaro Jaclyn Reason for Visit: PT Eval [747] Primary Visit Diagnosis:Disorder of right rotator cuff [M67.911] Allergies As of Date: 09/02/2024 Noted Allergy Reaction CODEINE 07/03/2007 TRAMADOL 06/30/2014 9 - Itching 14 - Other: See Comments Comments: Dizziness Date Reviewed: 08/29/2024 Reviewed by: Daisy Bennett MA - Fully Assessed Prescriptions as of 09/02/2024 - baclofen 10 mg tablet Take 10 mg by mouth once daily as needed. - etodolac (LODINE) 400 mg tablet Take 1 tablet by mouth two times a day. - metoprolol succinate ER (TOPROL XL) 100 mg Take 1 tablet by mouth once daily. - norethindrone (AYGESTIN) 5 mg tablet Take 1 tablet by mouth once daily. - PARoxetine (PAXIL) 10 mg tablet Take 1 tablet by mouth once daily. - galcanezumab-gnlm (EMGALITY PEN) 120 mg/mL pen Inject 2 pens (240 mg) under the skin 1 time only for initial loading dose. Refrigerate. Do not shake. - galcanezumab-gnlm (EMGALITY PEN) 120 mg/mL pen Inject 1 mL subcutaneously once every month. Refrigerate. Do not shake. Patient should start on June 04, 2024. - ubrogepant (UBRELVY) 100 mg tablet Take 1 tab at migraine onset. May repeat once in 2 hours as needed. - DULoxetine (CYMBALTA) 60 mg capsule Take 1 capsule by mouth once daily. - lisinopril (ZESTRIL) 5 mg tablet Take 1 tablet by mouth once daily. - Cholecalciferol, Vitamin D3, 50 mcg (2,000 unit) cap Take 1 capsule by mouth once daily. - Norethindrone Acet-Ethinyl Est (,) 1-20 mg-mcg per tablet (Discontinued) Take 1 tablet by mouth once daily. Sports Director: Therapy (PT/OT/Speech/Resp) ID: [id number] 09/02/2024 10:17 AM Author: RAYA AMBRIZ Signed by RAYA AMBRIZ PT on 09/02/2024 at 10:17 AM Document text: Program_ID:[id number] Access Code: [email or web address] URL: [email or web address]/ Date: 09-02-2024 Prepared By: Raya Ambriz Program Notes Exercises - Seated Cervical Retraction - 2-3 x daily - 7 x weekly - 4 sets - 10 reps - Seated Scapular Retraction - 2-3 x daily - 7 x weekly - 2 sets - 20 reps [facility] THERAPY NTon 09-02-2024 THERAPY NT HNO ID: [id number] Author: RAYA AMBRIZ PT Service: ? Author Type: Physical Therapist Type: Therapy (PT/OT/Speech/Resp) Filed: 09/02/2024 10:17 Note Text: Program_ID:[id number] Access Code: [email or web address] URL: [email or web address]/ Date: 09-02-2024 Prepared By: Raya Ambriz Program Notes Exercises - Seated Cervical Retraction - 2-3 x daily - 7 x weekly - 4 sets - 10 reps - Seated Scapular Retraction - 2-3 x daily - 7 x weekly - 2 sets - 20 reps Normal [facility] CNOVon 08-29-2024 CNOV Office Visit (FRFHWS ) MARICRUZ TEJADA ([id number]) 1 F Date Time Provider Department 08/29/24 10:30 AM FEDERICO MONROY During your visit today, we recorded the following information about you: Daisy Bennett MA 08/29/2024 10:45 AM Signed AMB ROOMING INTAKE FLOWSHEET DATA Pain Pain Level: 8 (with movement) Pain Location: Shoulder-Right Description: Sharp Duration Amount of Time: (ongoing) Frequency: Intermittent Intervention/Comfort measure: Reposition Federico Monroy V, DO 08/29/2024 10:45 AM Signed SERVICE DATE: August 29, 2024 PCP: Celso Freire DO Subjective Patient ID: Maricruz is a 19 year old female. Chief Complaint: Patient presents with: 4 week post visit right shoulder pain - wants injection PAIN EVALUATION 08/29/2024 1032 Pain Level: 8 with movement Pain Location: Shoulder-Right Description: Sharp Duration Amount of Time: -- ongoing Frequency: Intermittent Intervention/Comfort measure: Reposition HPI Right shoulder pain continues. Review of Systems ACTIVE PROBLEM LIST Tabor's Fracture of Base of Metacarpal of Right Thumb Exercise-Induced Asthma Hearing Difficulty of Left Ear Acute Pharyngitis, Unspecified Animal-Manan Injured By Fall From Or Being Thrown From Horse in Noncollision Accident, Initial Encounter Abdominal Contusion Concussion With Brief (Less Than One Hour) Loss of Consciousness Derangement of Right Knee Knee Injury Sore Throat Strain of Neck Muscle Strain of Right Rotator Cuff Capsule Autonomic Dysfunction Hypertension, Essential Cervicalgia Migraine Without Aura and Without Status Migrainosus, Not Intractable Intractable Chronic Migraine Without Aura and Without Status Migrainosus PAST MEDICAL HISTORY Diagnosis Date Calculus of kidney Migraine headache with aura PMDD (premenstrual dysphoric disorder) 2019 Syncope and collapse PAST SURGICAL HISTORY Procedure Laterality Date INSERTION OF IUD 10/24/2021 removed 09/14/2023 PAST SURGICAL HISTORY OF removal of renal calculi via lithotrypsy PAST SURGICAL HISTORY OF 06/24/2014 PCP of right thumb UNLISTED PROCEDURE LACRIMAL SYSTEM 02/18/2004 DR WHEELER FAMILY HISTORY Problem Relation Age of Onset Hypertension Mother Started in mid-30's Hypertension Father No Known Problems Sister No Known Problems Brother Hypertension Maternal Grandmother Hypertension Maternal Grandfather Lipids Maternal Grandfather other (FIBROMYALGIA) Paternal Grandmother Social History Tobacco Use Smoking status: Never Smokeless tobacco: Never Vaping Use Vaping status: Never Used Substance Use Topics Alcohol use: No Comment: rare Drug use: No ALLERGIES Allergen Reactions Codeine Tramadol Itching, Other: See Comments Dizziness MEDICATIONS: baclofen 10 mg tablet Take 10 mg by mouth once daily as needed. metoprolol succinate ER (TOPROL XL) 100 mg Take 1 tablet by mouth once daily. norethindrone (AYGESTIN) 5 mg tablet Take 1 tablet by mouth once daily. PARoxetine (PAXIL) 10 mg tablet Take 1 tablet by mouth once daily. galcanezumab-gnlm (EMGALITY PEN) 120 mg/mL pen Inject 2 pens (240 mg) under the skin 1 time only for initial loading dose. Refrigerate. Do not shake. ubrogepant (UBRELVY) 100 mg tablet Take 1 tab at migraine onset. May repeat once in 2 hours as needed. DULoxetine (CYMBALTA) 60 mg capsule Take 1 capsule by mouth once daily. lisinopril (ZESTRIL) 5 mg tablet Take 1 tablet by mouth once daily. Cholecalciferol, Vitamin D3, 50 mcg (2,000 unit) cap Take 1 capsule by mouth once daily. etodolac (LODINE) 400 mg tablet Take 1 tablet by mouth two times a day. (Patient not taking: Reported on 08/29/2024) galcanezumab-gnlm (EMGALITY PEN) 120 mg/mL pen Inject 1 mL subcutaneously once every month. Refrigerate. Do not shake. Patient should start on June 04, 2024. [DISCONTINUED] Norethindrone Acet-Ethinyl Est (,) 1-20 mg-mcg per tablet Take 1 tablet by mouth once daily. Allergies, medications, past surgical history, family history and past medical history were reviewed per this encounter. Objective Ortho Exam Assessment/Plan ASSESSMENT Diagnosis No diagnosis found. No orders found for this visit on 08/29/24. PLAN MRI results reviewed. 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 PT orders entered Large Joint Arthro/Inj: R subacromial bursa Informed Consent Consent Obtained: Verbal Monroe Protocol SIGN IN TIME OUT 08/29/2024 10:44 AM The procedure site was prepped in the usual sterile fashion. Site: R subacromial bursa Medications: 6 mg betamethasone acetate-betamethasone sodium phosphate 6 mg/mL Anesthetics: 4 mL lidocaine (PF) 10 mg/mL (1 %); 4 mL BUPivacaine (PF) 0.5 % (5 mg/mL) Outcome: Tolerated well, no immediate complications Post-injection instructions were reviewed (more content not included)... [facility] Large Joint Arthro/Inj: R poole bacromial bursaon 08-29-2024 Federico Monroy V, DO 08/29/2024 10:45 AM Large Joint Arthro/Inj: R subacromial bursa Informed Consent Consent Obtained: Verbal Monroe Protocol SIGN IN TIME OUT 08/29/2024 10:44 AM The procedure site was prepped in the usual sterile fashion. Site: R subacromial bursa Medications: 6 mg betamethasone acetate-betamethasone sodium phosphate 6 mg/mL Anesthetics: 4 mL lidocaine (PF) 10 mg/mL (1 %); 4 mL BUPivacaine (PF) 0.5 % (5 mg/mL) Outcome: Tolerated well, no immediate complications Post-injection instructions were reviewed with the patient and the patient voiced understanding of these instructions. [facility] Joce 08-15-2024 CNPN Telephone (Rapp IT UpWS) MARICRUZ TEJADA ([id number]) 1 F Date Time Provider Department 08/15/24 FEDERICO MONROY During your visit today, we recorded the following information about you: Daisy Bennett MA 08/15/2024 1:55 PM Signed ----- Message from Federico Monroy DO sent at 08/12/2024 2:43 PM EDT ----- MRI of shoulder showed inflammation of the rotator cuff tendon and bursa, with fraying and partial tearing of one of the cuff tendons (supraspinatus). Not usually a surgical issue, but would definitely benefit from Physical Therapy, possibly a repeat injection. Daisy Bennett MA 08/15/2024 1:56 PM Signed I called and spoke with the patient. Message from Dr. Monroy given. She has been scheduled for an appointment for an injection and she would like to go ahead and proceed with PT. Please place order. Federico Monroy V, DO 08/15/2024 2:05 PM Signed PT order entered Daisy Bennett MA 08/15/2024 2:40 PM Signed Please contact the patient and assist with PT appointment. Thank you. Stacey Cooper 08/16/2024 1:24 PM Signed Contacted patient, scheduled - With Raya Cooper Allergies As of Date: 08/15/2024 Noted Allergy Reaction CODEINE 07/03/2007 TRAMADOL 06/30/2014 9 - Itching 14 - Other: See Comments Comments: Dizziness Date Reviewed: 08/01/2024 Reviewed by: Daisy Bennett MA - Fully Assessed Reason for Visit: Results [95] Appointment [186] Primary Visit Diagnosis:Disorder of right rotator cuff [M67.911] Order(s):CONSULT TO PHYSICAL THERAPY [9032] Order #: [id number]: 1 FUTURE Prescriptions as of 08/16/2024 - etodolac (LODINE) 400 mg tablet Take 1 tablet by mouth two times a day. - metoprolol succinate ER (TOPROL XL) 100 mg Take 1 tablet by mouth once daily. - norethindrone (AYGESTIN) 5 mg tablet Take 1 tablet by mouth once daily. - PARoxetine (PAXIL) 10 mg tablet Take 1 tablet by mouth once daily. - galcanezumab-gnlm (EMGALITY PEN) 120 mg/mL pen Inject 2 pens (240 mg) under the skin 1 time only for initial loading dose. Refrigerate. Do not shake. - galcanezumab-gnlm (EMGALITY PEN) 120 mg/mL pen Inject 1 mL subcutaneously once every month. Refrigerate. Do not shake. Patient should start on June 04, 2024. - ubrogepant (UBRELVY) 100 mg tablet Take 1 tab at migraine onset. May repeat once in 2 hours as needed. - DULoxetine (CYMBALTA) 60 mg capsule Take 1 capsule by mouth once daily. - lisinopril (ZESTRIL) 5 mg tablet Take 1 tablet by mouth once daily. - Cholecalciferol, Vitamin D3, 50 mcg (2,000 unit) cap Take 1 capsule by mouth once daily. - Norethindrone Acet-Ethinyl Est (,) 1-20 mg-mcg per tablet (Discontinued) Take 1 tablet by mouth once daily. Problem List As Of Date 08/15/2024 Noted Resolved Tabor's fracture of base of metacarpal of rig*06/18/2014 Exercise-induced asthma [J45.990] 10/10/2021 Hearing difficulty of left ear [H91.92] 03/26/2023 Acute pharyngitis, unspecified [J02.9] 12/07/2023 Diagnosed: 12/07/2023 Animal-rider injured by fall from or being thro*12/07/2023 Diagnosed: 12/07/2023 Abdominal contusion [S30.1XXA] 12/07/2023 Diagnosed: 12/07/2023 Concussion with brief (less than one hour) loss*12/07/2023 Diagnosed: 12/07/2023 Derangement of right knee [M23.91] 12/07/2023 Diagnosed: 12/07/2023 Knee injury [S89.90XA] 12/07/2023 Diagnosed: 12/07/2023 Sore throat [J02.9] 12/07/2023 Diagnosed: 12/07/2023 Strain of neck muscle [S16.1XXA] 12/07/2023 Diagnosed: 12/07/2023 Strain of right rotator cuff capsule [S46.011A] 12/07/2023 Diagnosed: 12/07/2023 Autonomic dysfunction [G90.9] 02/21/2024 Hypertension, essential [I10] 02/21/2024 Cervicalgia [M54.2] 04/23/2024 Migraine without aura and without status migrai*04/23/2024 Intractable chronic migraine without aura and w*04/23/2024 Encounter Status:Closed by FEDERICO MONROY V on 08/15/24 [facility] MR Shoulder - right WO contr ashlyn 08-12-2024 IMPRESSION: 1. Supraspinatus tendinosis with small tendon fraying and low-grade partial tear 2. Mild subdeltoid bursitis Transcribe Date/Time: Aug 12 2024 9:20A Dictated by: DANILO LARA MD This examination was interpreted and the report reviewed and electronically signed by: DANILO LARA MD on Aug 12 2024 9:23AM EST Thank you for allowing us to participate in the care of your patient. Should there be any questions regarding this interpretation, please call [phone]. If you are unable to reach us at the number above, please feel free to contact [facility] at [phone]. DIVISION OF RADIOLOGY * * *Final Report* * * DATE OF EXAM: Aug 11 2024 12:00PM [facility] 0240 - MRI SHOULDER WO IVCON RT / PROCEDURE REASON: Right Shoulder instability * * * * Physician Interpretation * * * * RESULT: MRI of the right shoulder HISTORY: Right shoulder instability with pain TECHNIQUE: Routine study of the right shoulder COMPARISON: Radiographs 12/28/2023 FINDINGS: Mild tendinosis of the rotator cuff. A 4 mm dorsal side low-grade partial tear and fraying of the distal supraspinatus tendon. No full-thickness rotator cuff tear. No muscle edema or atrophy. Biceps tendon is in normal position. Glenoid articular cartilage is intact. No labral tear or detachment. No joint effusion. Acromioclavicular joint and coracoclavicular ligaments are intact. Thickening and edema at the subdeltoid bursa. DIVISION OF RADIOLOGY Provider, [facility] - 08/12/2024 * * *Final Report* * * DATE OF EXAM: Aug 11 2024 12:00PM [facility] [facility] - MRI SHOULDER WO IVCON RT / PROCEDURE REASON: Right Shoulder instability * * * * Physician Interpretation * * * * RESULT: MRI of the right shoulder HISTORY: Right shoulder instability with pain TECHNIQUE: Routine study of the right shoulder COMPARISON: Radiographs 12/28/2023 FINDINGS: Mild tendinosis of the rotator cuff. A 4 mm dorsal side low-grade partial tear and fraying of the distal supraspinatus tendon. No full-thickness rotator cuff tear. No muscle edema or atrophy. Biceps tendon is in normal position. Glenoid articular cartilage is intact. No labral tear or detachment. No joint effusion. Acromioclavicular joint and coracoclavicular ligaments are intact. Thickening and edema at the subdeltoid bursa. IMPRESSION IMPRESSION: 1. Supraspinatus tendinosis with small tendon fraying and low-grade partial tear 2. Mild subdeltoid bursitis Transcribe Date/Time: Aug 12 2024 9:20A Dictated by: DANILO LARA MD This examination was interpreted and the report reviewed and electronically signed by: DANILO LARA MD on Aug 12 2024 9:23AM EST Thank you for allowing us to participate in the care of your patient. Should there be any questions regarding this interpretation, please call [phone]. If you are unable to reach us at the number above, please feel free to contact [facility] eRadiology at [phone]. [facility] MR Shoulder - right WO contr astOrdered By: Ccf Provider on 08-12-2024 [facility] MR Shoulder - right WO contr ashlyn 08-11-2024 Radiology Study observation (narrative) [facility] MRI SHOULDER WO IVCON RTon 0 08-11-2024 MRI SHOULDER WO IVCON RT * * *Final Report* * * DATE OF EXAM: Aug 11 2024 12:00PM [facility] 0240 - MRI SHOULDER WO IVCON RT / PROCEDURE REASON: Right Shoulder instability * * * * Physician Interpretation * * * * RESULT: MRI of the right shoulder HISTORY: Right shoulder instability with pain TECHNIQUE: Routine study of the right shoulder COMPARISON: Radiographs 12/28/2023 FINDINGS: Mild tendinosis of the rotator cuff. A 4 mm dorsal side low-grade partial tear and fraying of the distal supraspinatus tendon. No full-thickness rotator cuff tear. No muscle edema or atrophy. Biceps tendon is in normal position. Glenoid articular cartilage is intact. No labral tear or detachment. No joint effusion. Acromioclavicular joint and coracoclavicular ligaments are intact. Thickening and edema at the subdeltoid bursa. IMPRESSION: 1. Supraspinatus tendinosis with small tendon fraying and low-grade partial tear 2. Mild subdeltoid bursitis Transcribe Date/Time: Aug 12 2024 9:20A Dictated by: DANILO LARA MD This examination was interpreted and the report reviewed and electronically signed by: DANILO LARA MD on Aug 12 2024 9:23AM EST Thank you for allowing us to participate in the care of your patient. Should there be any questions regarding this interpretation, please call [phone]. If you are unable to reach us at the number above, please feel free to contact [facility] eRadiology at [phone]. [id number] Normal [facility] CNOVon 08-01-2024 CNOV Office Visit (FRFHWS ) MARICRUZ TEJADA ([id number]) 1 F Date Time Provider Department 08/01/24 11:00 AM FEDERICO MONROY V [facility] During your visit today, we recorded the following information about you: Daisy Bennett MA 08/01/2024 11:18 AM Signed AMB ROOMING INTAKE FLOWSHEET DATA Pain Pain Level: 8 (with movement away from body) Pain Location: Shoulder-Right Description: Sharp, Other: See comment (popping) Duration Amount of Time: (ongoing) Frequency: Intermittent Intervention/Comfort measure: Medication, Cold, Heat Federico Monroy V, DO 08/01/2024 11:18 AM Signed SERVICE DATE: August 01, 2024 PCP: Celso Freire DO Subjective Patient ID: Maricruz is a 19 year old female. Chief Complaint: Patient presents with: 7 month post visit right shoulder pain PAIN EVALUATION 08/01/2024 1104 Pain Level: 8 with movement away from body Pain Location: Shoulder-Right Description: Sharp;Other: See comment popping Duration Amount of Time: -- ongoing Frequency: Intermittent Intervention/Comfort measure: Medication;Cold;Heat HPI Patient presents today for follow-up chronic right shoulder pain and instability. Last seen here 7 months ago. At that time she received a cortisone injection which she states helped with pain but not with instability symptoms. She has since had at least 1 episode where she felt her shoulder sublux requiring her to go to urgent care for evaluation and treatment. She continues to have painful range of motion as well as a feeling of shoulder laxity. Review of Systems ACTIVE PROBLEM LIST Tabor's Fracture of Base of Metacarpal of Right Thumb Exercise-Induced Asthma Hearing Difficulty of Left Ear Acute Pharyngitis, Unspecified Animal-Manan Injured By Fall From Or Being Thrown From Horse in Noncollision Accident, Initial Encounter Abdominal Contusion Concussion With Brief (Less Than One Hour) Loss of Consciousness Derangement of Right Knee Knee Injury Sore Throat Strain of Neck Muscle Strain of Right Rotator Cuff Capsule Autonomic Dysfunction Hypertension, Essential Cervicalgia Migraine Without Aura and Without Status Migrainosus, Not Intractable Intractable Chronic Migraine Without Aura and Without Status Migrainosus PAST MEDICAL HISTORY Diagnosis Date Calculus of kidney Migraine headache with aura PMDD (premenstrual dysphoric disorder) 2019 Syncope and collapse PAST SURGICAL HISTORY Procedure Laterality Date INSERTION OF IUD 10/24/2021 removed 09/14/2023 PAST SURGICAL HISTORY OF removal of renal calculi via lithotrypsy PAST SURGICAL HISTORY OF 06/24/2014 PCP of right thumb UNLISTED PROCEDURE LACRIMAL SYSTEM 02/18/2004 DR WHEELER FAMILY HISTORY Problem Relation Age of Onset Hypertension Mother Started in mid-30's Hypertension Father No Known Problems Sister No Known Problems Brother Hypertension Maternal Grandmother Hypertension Maternal Grandfather Lipids Maternal Grandfather other (FIBROMYALGIA) Paternal Grandmother Social History Tobacco Use Smoking status: Never Smokeless tobacco: Never Vaping Use Vaping status: Never Used Substance Use Topics Alcohol use: No Comment: rare Drug use: No ALLERGIES Allergen Reactions Codeine Tramadol Itching, Other: See Comments Dizziness MEDICATIONS: metoprolol succinate ER (TOPROL XL) 100 mg Take 1 tablet by mouth once daily. norethindrone (AYGESTIN) 5 mg tablet Take 1 tablet by mouth once daily. PARoxetine (PAXIL) 10 mg tablet Take 1 tablet by mouth once daily. galcanezumab-gnlm (EMGALITY PEN) 120 mg/mL pen Inject 2 pens (240 mg) under the skin 1 time only for initial loading dose. Refrigerate. Do not shake. galcanezumab-gnlm (EMGALITY PEN) 120 mg/mL pen Inject 1 mL subcutaneously once every month. Refrigerate. Do not shake. Patient should start on June 04, 2024. ubrogepant (UBRELVY) 100 mg tablet Take 1 tab at migraine onset. May repeat once in 2 hours as needed. DULoxetine (CYMBALTA) 60 mg capsule Take 1 capsule by mouth once daily. lisinopril (ZESTRIL) 5 mg tablet Take 1 tablet by mouth once daily. Cholecalciferol, Vitamin D3, 50 mcg (2,000 unit) cap Take 1 capsule by mouth once daily. etodolac (LODINE) 400 mg tablet Take 1 tablet by mouth two times a day. [DISCONTINUED] Norethindrone Acet-Ethinyl Est (,) 1-20 mg-mcg per tablet Take 1 tablet by mouth once daily. Allergies, medications, past surgical history, family history and past medical history were reviewed per this encounter. Objective Ortho Exam 19-year-old female in no acute distress. Alert pleasant cooperative exam. Range of motion shows restriction with abduction and external rotation of the right shoulder. There is laxity with AP translation of the right shoulder at the glenohumeral joint. There is difficulty with resisting secondary to pain with ro (more content not included)... Normal [facility] 07-24-2024 [facility] MARICRUZ TEJADA ([id number]) 1 F Date Time Provider Department 07/24/24 KELSI BERMUDEZ [facility] During your visit today, we recorded the following information about you: Kelsi Bermudez APRN.[facility] 07/24/2024 7:38 AM Signed Please let Maricruz know that I was able to speak with Dr. Tovar with cardiology, and he agrees that we should increase her metoprolol to 100mg daily. I'll send this increase in for her. The following approved medication requests have been transmitted electronically. Requested Prescriptions Signed Prescriptions Disp Refills metoprolol succinate ER (TOPROL XL) 100 mg 30 tablet 2 Sig: Take 1 tablet by mouth once daily. Authorizing Provider: KELSI BERMUDEZ APRN.CNP Holiday, [place], [place] 07/24/2024 10:00 AM Signed Pt informed, verbalized understanding Naomy Rivers MA Allergies As of Date: 07/24/2024 Noted Allergy Reaction CODEINE 07/03/2007 TRAMADOL 06/30/2014 9 - Itching 14 - Other: See Comments Comments: Dizziness Date Reviewed: 07/15/2024 Reviewed by: Kelsi Bermudez APRN.SENIOR ACCOUNT CLERK - Fully Assessed Reason for Visit: Orders [681] Primary Visit Diagnosis:Hypertension, essential [I10] Other Visit Diagnoses:Palpitations [R00.2] Tachycardia [R00.0] Order(s):metoprolol succinate ER (TOPROL XL) 100 mgTake 1 tablet by mouth once daily.Disp: 30 tabletRfl: 2 Prescriptions as of 07/24/2024 - metoprolol succinate ER (TOPROL XL) 100 mg Take 1 tablet by mouth once daily. - norethindrone (AYGESTIN) 5 mg tablet Take 1 tablet by mouth once daily. - PARoxetine (PAXIL) 10 mg tablet Take 1 tablet by mouth once daily. - galcanezumab-gnlm (EMGALITY PEN) 120 mg/mL pen Inject 2 pens (240 mg) under the skin 1 time only for initial loading dose. Refrigerate. Do not shake. - galcanezumab-gnlm (EMGALITY PEN) 120 mg/mL pen Inject 1 mL subcutaneously once every month. Refrigerate. Do not shake. Patient should start on June 04, 2024. - ubrogepant (UBRELVY) 100 mg tablet Take 1 tab at migraine onset. May repeat once in 2 hours as needed. - DULoxetine (CYMBALTA) 60 mg capsule Take 1 capsule by mouth once daily. - lisinopril (ZESTRIL) 5 mg tablet Take 1 tablet by mouth once daily. - Cholecalciferol, Vitamin D3, 50 mcg (2,000 unit) cap Take 1 capsule by mouth once daily. - Norethindrone Acet-Ethinyl Est (JUNE,) 1-20 mg-mcg per tablet (Discontinued) Take 1 tablet by mouth once daily. Problem List As Of Date 07/24/2024 Noted Resolved Tabor's fracture of base of metacarpal of rig*06/18/2014 Exercise-induced asthma [J45.990] 10/10/2021 Hearing difficulty of left ear [H91.92] 03/26/2023 Acute pharyngitis, unspecified [J02.9] 12/07/2023 Diagnosed: 12/07/2023 Animal-rider injured by fall from or being thro*12/07/2023 Diagnosed: 12/07/2023 Abdominal contusion [S30.1XXA] 12/07/2023 Diagnosed: 12/07/2023 Concussion with brief (less than one hour) loss*12/07/2023 Diagnosed: 12/07/2023 Derangement of right knee [M23.91] 12/07/2023 Diagnosed: 12/07/2023 Knee injury [S89.90XA] 12/07/2023 Diagnosed: 12/07/2023 Sore throat [J02.9] 12/07/2023 Diagnosed: 12/07/2023 Strain of neck muscle [S16.1XXA] 12/07/2023 Diagnosed: 12/07/2023 Strain of right rotator cuff capsule [S46.011A] 12/07/2023 Diagnosed: 12/07/2023 Autonomic dysfunction [G90.9] 02/21/2024 Hypertension, essential [I10] 02/21/2024 Cervicalgia [M54.2] 04/23/2024 Migraine without aura and without status migrai*04/23/2024 Intractable chronic migraine without aura and w*04/23/2024 Prescriptions ordered this encounter Disp Refills Start End METOPROLOL SUCCINATE ER 100 MG TABLE* 30 t* 2 07/24/2024 10/22/2024 Route: ORAL Sig: Take 1 tablet by mouth once daily. Medications Discontinued During This Encounter Prescriptions - metoprolol succinate ER (TOPROL XL) 50 mg 24 hr tablet (Discontinued) Take 1.5 tablets by mouth once daily. Encounter Status:Closed by NAOMY RIVERS on 07/24/24 [facility] CNOVon 07-15-2024 CNOV Office Visit (FAMPWS ) MARICRUZ TEJADA ([id number]) 1 F Date Time Provider Department 07/15/24 8:20 AM KELSI BERMUDEZ During your visit today, we recorded the following information about you: Pulse Blood pressure Weight 71/minute 116/86 66.9 kg Kelsi Bermudez APRN.SENIOR ACCOUNT CLERK 07/15/2024 3:44 PM Signed Chief Complaint Patient presents with: Blood Pressure Check HPI Maricruz Tejada is a 19 year old female who presents here today for Above Complaints. Home BP has been 140-150/90-100's. Was sick for a while. Hasn't been overly stressed. Continues with some palpitations. Notices that her BP goes up and she feels somewhat lightheaded. Sx last about 30-60 minutes, actual palpitations last about 3 minutes. Happens when she is active-such as walking on treadmill or moving positions from couch to walking, about 3x per week. Has hx ADHD. Wondering if she goes back to school if she would be able to get started back on her Adderall. Has seen Dr. Monroy orthopedics in the past for her right shoulder pain. Would like to see him again for possible further tx. Past medical history, appointments, medications, allergies reviewed. Previous Medical History PAST MEDICAL HISTORY No date: Calculus of kidney No date: Migraine headache with aura 2019: PMDD (premenstrual dysphoric disorder) No date: Syncope and collapse Previous Surgical History PAST SURGICAL HISTORY 10/24/2021: INSERTION OF IUD Comment: removed 09/14/2023 No date: PAST SURGICAL HISTORY OF Comment: removal of renal calculi via lithotrypsy 06/24/2014: PAST SURGICAL HISTORY OF Comment: PCP of right thumb 02/18/2004: UNLISTED PROCEDURE LACRIMAL SYSTEM Comment: DR WHEELER Family History FAMILY HISTORY Problem Relation Age of Onset Hypertension Mother Started in mid-30's Hypertension Father No Known Problems Sister No Known Problems Brother Hypertension Maternal Grandmother Hypertension Maternal Grandfather Lipids Maternal Grandfather other (FIBROMYALGIA) Paternal Grandmother Patient Allergies ALLERGIES Allergen Reactions Codeine Tramadol Itching, Other: See Comments Dizziness Current Medications Current Outpatient Medications on File Prior to Visit Medication Sig norethindrone (AYGESTIN) 5 mg tablet Take 1 tablet by mouth once daily. PARoxetine (PAXIL) 10 mg tablet Take 1 tablet by mouth once daily. galcanezumab-gnlm (EMGALITY PEN) 120 mg/mL pen Inject 2 pens (240 mg) under the skin 1 time only for initial loading dose. Refrigerate. Do not shake. galcanezumab-gnlm (EMGALITY PEN) 120 mg/mL pen Inject 1 mL subcutaneously once every month. Refrigerate. Do not shake. Patient should start on June 04, 2024. ubrogepant (UBRELVY) 100 mg tablet Take 1 tab at migraine onset. May repeat once in 2 hours as needed. DULoxetine (CYMBALTA) 60 mg capsule Take 1 capsule by mouth once daily. metoprolol succinate ER (TOPROL XL) 50 mg 24 hr tablet Take 1.5 tablets by mouth once daily. lisinopril (ZESTRIL) 5 mg tablet Take 1 tablet by mouth once daily. Cholecalciferol, Vitamin D3, 50 mcg (2,000 unit) cap Take 1 capsule by mouth once daily. sodium chloride (SALINE MIST) 0.65 % nasal spray Use 1 [place] in the nose two times a day. (Patient not taking: Reported on 07/15/2024) [DISCONTINUED] Norethindrone Acet-Ethinyl Est (,) 1-20 mg-mcg per tablet Take 1 tablet by mouth once daily. No current facility-administered medications on file prior to visit. Social History Social History Tobacco Use Smoking status: Never Smokeless tobacco: Never Vaping Use Vaping status: Never Used Substance Use Topics Alcohol use: No Comment: rare Drug use: No Review of Symptoms REVIEW OF SYSTEMS See HPI, otherwise negative EXAM: BP 116/86 (BP Site: Left Arm, BP Position: Sitting, BP Cuff Size: Regular Adult) Pulse 71 Wt 66.9 kg (147 lb 6.4 oz) LMP 05/02/2024 (Within Days) SpO2 98% BMI 26.11 kg/m? General Appearance: Well appearing, alert, in no acute distress, well-hydrated, well nourished.. Lungs: Lungs clear to auscultation. No wheezing, rhonchi, rales.. Heart: RRR without murmur, gallop, or rubs. No ectopy. Psychiatric: pleasant, cooperative. Health Maintenance List Asthma Action Plan Never done Asthma Control Test Never done Meningococcal B Vaccine: Consider Based On Risk(1 of 2 - Patient Seeks Protection) Never done Spirometry Never done Depression Screening Never done Anxiety Screening Never done Hepatitis C Screening Never done HIV Screening Never done BP Controlled (<130/80) Never done Cervical Cancer Screening Never done Covid-19 Vaccine( - 2022- season) due on 04/11/2025 Influenza Vaccine(1) due on 07/20/2024 GC (Gonorrhea) Screening (18-) due on 09/12/2024 Chlamydia Screening (18-24) due on 09/12/2024 Annual PCP Team Chronic Disease Visit due on 06/18/2025 D (more content not included)... Normal [facility] STREP A MOLECULAR (POC)on Interpretation and review of laboratory results Abnormal [facility] Procedural Control Valid [facility] Strep A (POCT) Positive Abnormal Negative [facility] CNPNon 02-21-2024 [facility] Telephone ([facility]) MARICRUZ TEJADA ([id number]) 1 F Date Time Provider Department 02/21/24 CECI TOVAR During your visit today, we recorded the following information about you: Trevor Marsh MA 02/21/2024 2:38 PM Signed Patient had appt virtually w/ Dr Tovar today. Needs 3 month f/u visit scheduled with Dr Tovar. Thank you! Trevor Marsh, Alisson Pedraza 02/22/2024 9:45 AM Signed First attempt at contacting patient, left to schedule Dominga Young 02/25/2024 11:44 AM Signed Second attempt - left for patient to call back Allergies As of Date: 02/21/2024 Noted Allergy Reaction CODEINE 07/03/2007 TRAMADOL 06/30/2014 9 - Itching 14 - Other: See Comments Comments: Dizziness Date Reviewed: 02/21/2024 Reviewed by: Ceci Tovar DO - Fully Assessed Reason for Visit: Appointment [186] Prescriptions as of 02/27/2024 - metoprolol succinate ER (TOPROL XL) 50 mg 24 hr tablet Take 1.5 tablets by mouth once daily. - DULoxetine (CYMBALTA) 60 mg capsule Take 1 capsule by mouth once daily. - PARoxetine (PAXIL) 10 mg tablet Take 1 tablet by mouth once daily. - lisinopril (ZESTRIL) 5 mg tablet Take 1 tablet by mouth once daily. - naratriptan (AMERGE) 1 mg tablet Take 1 tablet (1 mg) by mouth as needed for migraine headache (see administration instructions). May repeat dose after 4 hours if needed. Maximum daily dose is 5 mg per day. - baclofen 10 mg tablet Take 1 tablet by mouth daily at bedtime for 7 days, THEN 2 tablets daily at bedtime. - benzonatate (TESSALON PERLE) 100 mg capsule - Norethindrone, Contraceptive, (JOLENE) 0.35 mg tablet Take 1 tablet by mouth once daily. - Cholecalciferol, Vitamin D3, 50 mcg (2,000 unit) cap Take 1 capsule by mouth once daily. - Norethindrone Acet-Ethinyl Est (12/08, ,) 1-20 mg-mcg per tablet (Discontinued) Take 1 tablet by mouth once daily. Facility-Administered Medications as of 02/27/2024 - perflutren lipid microspheres 1.3 mL in NaCl (PF) 0.9% 10 mL injection (DEFINITY) - sodium chloride 0.9 % (flush) 10 mL (BD POSIFLUSH) Problem List As Of Date 02/21/2024 Noted Resolved Tabor's fracture of base of metacarpal of rig*06/18/2014 Exercise-induced asthma [J45.990] 10/10/2021 Hearing difficulty of left ear [H91.92] 03/26/2023 Acute pharyngitis, unspecified [J02.9] 12/07/2023 Animal-rider injured by fall from or being thro*12/07/2023 Abdominal contusion [S30.1XXA] 12/07/2023 Concussion with brief (less than one hour) loss*12/07/2023 Derangement of right knee [M23.91] 12/07/2023 Knee injury [S89.90XA] 12/07/2023 Sore throat [J02.9] 12/07/2023 Strain of neck muscle [S16.1XXA] 12/07/2023 Strain of right rotator cuff capsule [S46.011A] 12/07/2023 Autonomic dysfunction [G90.9] 02/21/2024 Hypertension, essential [I10] 02/21/2024 Encounter Status:Closed by TREVOR MARSH on 02/21/24 [facility] XR Clavicle - right 2 Viewso n 12-15-2023 IMPRESSION: No acute osseous abnormality Cupola Melter: SYMONE Transcribe Date/Time: Dec 15 2023 9:56A Dictated by : COLTON PAUL MD This examination was interpreted and the report reviewed and electronically signed by: COLTON PAUL MD on Dec 15 2023 9:57AM [facility] DIVISION OF RADIOLOGY * * *Final Report* * * DATE OF EXAM: Dec 15 2023 9:49AM WOX [id number] - XR CLAVICLE 2V RT / PROCEDURE REASON: Acute pain of right shoulder * * * * Physician Interpretation * * * * EXAMINATION: XR CLAVICLE 2V RT CLINICAL HISTORY: Right shoulder pain Technique: XR CLAVICLE 2V RT -- RIGHT with 2 views on 2 images Comparison: None RESULT: History fracture or dislocation. Joint spaces are maintained. DIVISION OF RADIOLOGY Provider, [facility] - 12/15/2023 * * *Final Report* * * DATE OF EXAM: Driss 27 2024 9:49AM [facility] [id number] - XR CLAVICLE 2V RT / PROCEDURE REASON: Acute pain of right shoulder * * * * Physician Interpretation * * * * EXAMINATION: XR CLAVICLE 2V RT CLINICAL HISTORY: Right shoulder pain Technique: XR CLAVICLE 2V RT -- RIGHT with 2 views on 2 images Comparison: None RESULT: History fracture or dislocation. Joint spaces are maintained. IMPRESSION IMPRESSION: No acute osseous abnormality Cupola Melter: PSCThor Transcribe Date/Time: Dec 15 2023 9:56A Dictated by : COLTON PAUL MD This examination was interpreted and the report reviewed and electronically signed by: COLTON PAUL MD on Dec 15 2023 9:57AM EST [facility] Radiology Study observation (narrative) [facility] XR Clavicle - right 2 ViewsO rdered By: Ccrenetta Provider on 12-15-2023 [facility] CNOVon 12-07-2023 CNOV Office Visit (CARMED ) MARICRUZ TEJADA ([id number]) 1 F Date Time Provider Department 12/07/23 3:00 PM CECI TOVAR During your visit today, we recorded the following information about you: Pulse Blood pressure Weight Height 104/minute 138/96 72.1 kg 1.6 m Ceci Tovar DO 12/07/2023 5:09 PM Signed [facility] OUTPATIENT VISIT DATE December 07, 2023 PRIMARY CARE PHYSICIAN: Celso Freire [address] [place] [address] HISTORY OF PRESENT ILLNESS: Ms. Tejada is a 18 year old female. The patient presents for evaluation treatment options of tachycardia with associated syncope and collapse. This has happened multiple times in multiple different situations with prolonged sitting or standing in the past several months. The patient has a history of trauma with 3 concussions the last the worst of which were at the end of her high school career while playing basketball. As a result, her senior year was very difficult with difficulty concentrating and taking her classes and having her therefore have bad grades. She notes at times feeling her heart race. For 1 particular situation recently she had so driving and actually had a detailed box. She additionally has a stressful environment as her parents are going through divorce for which unfortunately her father is an alcoholic. She denies chest discomfort, dyspnea on exertion, orthopnea or paroxysmal nocturnal dyspnea. The patient is single, lives at home with her parents, no children. She is a non-smoker essentially nondrinker. She is usually skips breakfast and eats meals as she and the knows where she works in a jar at the time. She has little if any fruits or vegetables. All of her food is usually processed and last made at home by her parents. She tries to drink approximately 64 ounces of water a day but has at least 40 upwards and 80 ounces of regular Coke daily as well. She has no difficulty with sleep per se but does not necessarily wake up feeling rested. She is currently doing no exercise. 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 In the past couple years the patient has apparently developed hypertension? She has been placed on antihypertensive medication and ironically since being on lisinopril, she has had her syncopal events. Recent echocardiogram demonstrated structurally normal heart. Recent telemetry monitoring demonstrated appropriate heart rate variability and no significant dysrhythmias. Cardiac risk factors: None Impression: 1. Tachycardia 2. Syncope and collapse 3. Palpitations 4. Borderline if any abnormal tilt table test 6. History of multiple concussions 6. History of migraines 7. Hypertension? PLAN AND RECOMMENDATIONS: The patient has syncope with probable autonomic dysfunction. She has had normal noninvasive testing without structural heart disease, grossly abnormal tilt table test nor dysrhythmia with a monitoring manager. With monitoring, she had a normal resting heart rate and therefore we believe that she does not have POTS. She has a rather a great deal of stress and may suffered from PTSD to some degree. She is also been diagnosed in the past with potential ADD. We discussed the role counseling may help in her situation. For now we are worried that the lisinopril may be actually worsening things for which we have cut back the dose to 5 mg daily. We would allow some mild hypertension. Her case. Certainly she is in no way following DASH diet or any type of diet that would be appropriate for someone with a diagnosis of hypertension. We discussed that at length. We discussed the following diet and lifestyle changes to include: 1. Appropriate salt. Currently she is utilizing too much salt or sodium in her diet 2. Hydration up to a gallon of regular water per day 3. Reduction in substances which would cause stimulation of her heart rate such as caffeine 4. Reduction of substances which would cause dehydration such as caffeine 5. Adequate amount of protein intake of at least 70 g/day 6. Regular routine particular with eating breakfast lunch and dinner and appropriately eating heart healthy foods with incorporation of fresh vegetables and fruit 7. Good sleep hygiene, we may need to consider evaluation for sleep disorder in the future 8. Resumption of regular exercise with eventual incorporation of resistance training. For now she may start gentle walking or even slow jogging. She can try doing some of the drills with her basketball team for instance. Will follow-up with her in a couple months time for repeat evaluation of the above including the change in her medications, diet and lifestyle changes. She and her mother voiced un (more content not included)... Normal [facility] GLUCOSE, BLOOD (POC)on 10-04 Glucose [Mass/Vol] 85 mg/dL 74 - 99 mg/dL [facility] STREP A MOLECULAR (POC)on Procedural Control Valid [facility] Strep A (POCT) Negative Negative [facility] XR Finger - left AP and Late ral and obliqueon 05-28-2023 IMPRESSION: 1. Mild soft swelling with no acute fracture identified. Cupola Melter: PSCB Transcribe Date/Time: May 28 2023 4:17P Dictated by : COLTON LAWRENCE MD This examination was interpreted and the report reviewed and electronically signed by: COLTON LAWRENCE MD on May 28 2023 4:23PM [facility] DIVISION OF RADIOLOGY * * *Final Report* * * DATE OF EXAM: May 28 2023 4:12PM WOX [id number] - XR DIGIT 3V FRONTAL/LAT/OBL LT / PROCEDURE REASON: Finger injury, initial encounter * * * * Physician Interpretation * * * * PROCEDURE: XR DIGIT 3V FRONTAL/LAT/OBL LT EXAM DATE: 05/28/2023 4:12 PM HISTORY: Finger injury, dislocated during a horse shoe ENCOUNTER: Initial COMPARISON: None. FINDINGS: Tiny exostosis just proximal to the tuft of the distal phalanx. Mild generalized soft tissue prominence in the small finger. No acute or healing fractures, dislocation or subluxation. DIVISION [facility] RADIOLOGY [facility] * * *Final Report* * * DATE OF EXAM: May 28 2023 4:12PM WOX [id number] - XR DIGIT 3V FRONTAL/LAT/OBL LT / PROCEDURE REASON: Finger injury, initial encounter * * * * Physician Interpretation * * * * PROCEDURE: XR DIGIT 3V FRONTAL/LAT/OBL LT EXAM DATE: 05/28/2023 4:12 PM HISTORY: Finger injury, dislocated during a horse shoe ENCOUNTER: Initial COMPARISON: None. FINDINGS: Tiny exostosis just proximal to the tuft of the distal phalanx. Mild generalized soft tissue prominence in the small finger. No acute or healing fractures, dislocation or subluxation. IMPRESSION IMPRESSION: 1. Mild soft swelling with no acute fracture identified. Cupola Melter: [facility] Transcribe Date/Time: May 28 2023 4:17P Dictated by : COLTON LAWRENCE MD This examination was interpreted and the report reviewed and electronically signed by: COLTON LAWRENCE MD on May 28 2023 4:23PM [facility] Radiology Study observation (narrative) [facility] XR Finger - left AP and Late ral and obliqueOrdered By: Ccf Provider on 05-28-2023 [facility] US FEMALE PELVIS TRANSVAGon 05-04-2023 [facility] CBC W Auto Differential pane l (Bld)on 04-25-2023 Basophils (Bld) [#/Vol] 0.05 10*3/uL <0.11 k/uL [facility] Basophils/100 WBC (Bld) 0.7 % [facility] Differential cell count method Nom (Bld) Auto [facility] Eosinophils (Bld) [#/Vol] 0.20 10*3/uL <0.46 k/uL [facility] Eosinophils/100 WBC (Bld) 2.6 % [facility] Erythrocyte distribution width (RBC) [Ratio] 11.6 % 11.5 - 15.0 % [facility] Hematocrit (Bld) [Volume fraction] 41.1 % 36.0 - 46.0 % [facility] Hemoglobin (Bld) [Mass/Vol] 14.1 g/dL 11.5 - 15.5 g/dL [facility] Immature granulocytes (Bld) [#/Vol] <0.10 k/uL [facility] Immature granulocytes/100 WBC (Bld) 0.1 % [facility] Lymphocytes (Bld) [#/Vol] 1.96 10*3/uL 1.00 - 4.00 k/uL [facility] Lymphocytes/100 WBC (Bld) 25.8 % [facility] MCH (RBC) [Entitic mass] 29.7 pg 26.0 - 34.0 pg [facility] MCHC (RBC) [Mass/Vol] 34.3 g/dL 30.5 - 36.0 g/dL [facility] MCV (RBC) [Entitic vol] 86.5 fL 80.0 - 100.0 fL [facility] Monocytes (Bld) [#/Vol] 0.43 10*3/uL <0.87 k/uL [facility] Monocytes/100 WBC (Bld) 5.7 % [facility] Neutrophils (Bld) [#/Vol] 4.95 10*3/uL 1.45 - 7.50 k/uL [facility] Neutrophils/100 WBC (Bld) 65.1 % [facility] Nucleated RBC (Bld) [#/Vol] <0.01 k/uL [facility] Nucleated RBC/100 WBC (Bld) [Ratio] 0.0 /100 WBC [facility] Platelet mean volume (Bld) [Entitic vol] 9.9 fL 9.0 - 12.7 fL [facility] Platelets (Bld) [#/Vol] 244 10*3/uL 150 - 400 k/uL [facility] RBC (Bld) [#/Vol] 4.75 10*6/uL 3.90 - 5.2 0 m/uL [facility] WBC (Bld) [#/Vol] 7.60 10*3/uL 3.70 - 11.00 k/uL [facility] MR Brain WO and W contrast I Von 04-23-2023 IMPRESSION: New mild paranasal sinus mucosal thickening. No acute intracranial process or abnormal enhancement with unremarkable focused IAC imaging without/with contrast. Cupola Melter: SYMONE Transcribe Date/Time: Apr 23 2023 2:28P Dictated by : SAM MURPHY MD This examination was interpreted and the report reviewed and electronically signed by: SAM MURPHY MD on Apr 23 2023 2:32PM [facility] DIVISION OF RADIOLOGY * * *Final Report* * * DATE OF EXAM: Apr 23 2023 2:04PM [facility] 0295 - MRI BRAIN WO/W IVCON / PROCEDURE REASON: Sensorineural hearing loss (SNHL) of left ear with unrestricted hearing of right * * * * Physician Interpretation * * * * EXAMINATION: MRI BRAIN WO/W IVCON HISTORY: Sensorineural hearing loss (SNHL) of left ear with unrestricted hearing of right ear TECHNIQUE: IAC protocol MRI without/with contrast the inclusion of whole brain axial FLAIR, diffusion, and post gadolinium axial T1. MQ: [id number] Contrast: 14 mL Dotarem IV COMPARISON: Sinus CT 12/27/2021. RESULT: Robust brain volume without structural abnormality or abnormal signal intensity. Negative for restricted diffusion, gross hemorrhage, mass effect, extra-axial collection, and abnormal enhancement. Focused IAC imaging revealing normal course and caliber of the 7th and 8th nerve complexes and remaining visualized cranial nerves with no pathologic enhancement. Unremarkable inner ear apparatus bilaterally as well as mastoids/petrous ridges/skull base. Up to mild paranasal sinus mucosal thickening with the right frontal sinus mucosal retention cyst/polyp, new since CT. Unremarkable orbits, marrow signal, and soft tissues. DIVISION OF RADIOLOGY Provider, [facility] - 04/23/2023 * * *Final Report* * * DATE OF EXAM: Apr 23 2023 2:04PM [facility] 0295 - MRI BRAIN WO/W IVCON / PROCEDURE REASON: Sensorineural hearing loss (SNHL) of left ear with unrestricted hearing of right * * * * Physician Interpretation * * * * EXAMINATION: MRI BRAIN WO/W IVCON HISTORY: Sensorineural hearing loss (SNHL) of left ear with unrestricted hearing of right ear TECHNIQUE: IAC protocol MRI without/with contrast the inclusion of whole brain axial FLAIR, diffusion, and post gadolinium axial T1. MQ: [id number] Contrast: 14 mL Dotarem IV COMPARISON: Sinus CT 12/27/2021. RESULT: Robust brain volume without structural abnormality or abnormal signal intensity. Negative for restricted diffusion, gross hemorrhage, mass effect, extra-axial collection, and abnormal enhancement. Focused IAC imaging revealing normal course and caliber of the 7th and 8th nerve complexes and remaining visualized cranial nerves with no pathologic enhancement. Unremarkable inner ear apparatus bilaterally as well as mastoids/petrous ridges/skull base. Up to mild paranasal sinus mucosal thickening with the right frontal sinus mucosal retention cyst/polyp, new since CT. Unremarkable orbits, marrow signal, and soft tissues. IMPRESSION IMPRESSION: New mild paranasal sinus mucosal thickening. No acute intracranial process or abnormal enhancement with unremarkable focused IAC imaging without/with contrast. Cupola Melter: PSCB Transcribe Date/Time: Apr 23 2023 2:28P Dictated by : SAM MURPHY MD This examination was interpreted and the report reviewed and electronically signed by: SAM MURPHY MD on Apr 23 2023 2:32PM EST [facility] Radiology Study observation (narrative) [facility] MR Brain WO and W contrast I VOrdered By: Ccf Provider on 04-23-2023 [facility] .GFRon 03-21-2023 GFR >60 Normal [facility] ([place]) Comment on above: Result Comment: GFR Population mean for , Non- Americans Ages 20-29 = 116 mL/min/1.73 sq.m. Ages 30-39 = 107 mL/min/1.73 sq.m. Ages 40-49 = 99 mL/min/1.73 sq.m. Ages 50-59 = 93 mL/min/1.73 sq.m. Ages 60-69 = 85 mL/min/1.73 sq.m. Ages 70+ = 75 mL/min/1.73 sq.m. Chronic Kidney Disease: Less than 60 mL/min/1.73 square meters End Stage Renal Disease: Less than 15 mL/min/1.73 square meters Performed By: #### G FR, BMP, HH #### [place] [address] GFR Non- >60 Normal [facility] ([place]) Comment on above: Result Comment: GFR Population mean for , Non- Americans Ages 20-29 = 116 mL/min/1.73 sq.m. Ages 30-39 = 107 mL/min/1.73 sq.m. Ages 40-49 = 99 mL/min/1.73 sq.m. Ages 50-59 = 93 mL/min/1.73 sq.m. Ages 60-69 = 85 mL/min/1.73 sq.m. Ages 70+ = 75 mL/min/1.73 sq.m. Chronic Kidney Disease: Less than 60 mL/min/1.73 square meters End Stage Renal Disease: Less than 15 mL/min/1.73 square meters Performed By: #### ROSA STARR #### [address] [address] [facility] BUN/Creatinine Ratio 8.5 ratio Low 10.0-22.0 [facility] ([place]) Comment on above: Performed By: #### ROSA STARR #### [address] [address] Calcium [Mass/Vol] 9.9 mg/dL Normal 8.7-10.4 [facility] ([place]) Comment on above: Performed By: #### ROSA STARR #### [address] [address] Chloride [Moles/Vol] 105 mmol/L Normal 98-110 [facility] ([place]) Comment on above: Performed By: #### ROSA STARR #### [address] [address] CO2 [Moles/Vol] 24 mmol/L Normal 22-32 [facility] ([place]) Comment on above: Performed By: #### ROSA STARR #### [address] [address] Creatinine [Mass/Vol] 0.71 mg/dL Normal 0.50-1.20 [facility] ([place]) Comment on above: Performed By: #### ROSA STARR #### [address] [address] Electrolyte Balance 9.0 mEq/L Normal 4.0-15.0 [facility] ([place]) Comment on above: Performed By: #### ROSA STARR #### [place] [address] Glucose [Mass/Vol] 83 mg/dL Normal 70-110 [facility] ([place]) Comment on above: Performed By: #### ROSA STARR, #### [place] [address] Potassium [Moles/Vol] 4.3 mmol/L Normal 3.5-5.0 [facility] ([place]) Comment on above: Result Comment: Spec imen slightly hemolyzed. Performed By: #### G ROSA PIERCE, #### [place] [address] Sodium [Moles/Vol] 138 mmol/L Normal 136-145 [facility] ([place]) Comment on above: Performed By: #### ROSA STARR, #### [place] [address] Urea nitrogen [Mass/Vol] 6.0 mg/dL Low 8.0-22.0 [facility] ([place]) Comment on above: Performed By: #### ROSA STARR, #### [place] [id number] [facility] 03-21-2023 Hematocrit (Bld) [Volume fraction] 34.7 % Normal 34.0-46.0 [facility] ([place]) Comment on above: Performed By: #### ROSA STARR, #### [place] [address] Hgb 11.8 G/dL Low 12.0-16.0 [facility] ([place]) Comment on above: Performed By: #### ROSA STARR, #### [place] [address] LABORATORYOrdered By: Kasey Baca on 03-21-2023 Appearance (U) Clear (03/21/23 5:02 PM) [facility] Work Phone: Beta HCG ( test) Ql (U) Negative (03/21/23 5:02 PM) [facility] Work Phone: Bilirubin Urine Dipstick Negative (03/21/23 5:02 PM) [facility] Work Phone: Blood Urine Dipstick Negative (03/21/23 5:02 PM) [facility] Work Phone: Glucose Urine Dipstick Negative (03/21/23 5:02 PM) [facility] Work Phone: Ketones Urine Dipstick Negative (03/21/23 5:02 PM) [facility] Work Phone: Leukocytes Urine Dipstick Negative (03/21/23 5:02 PM) [facility] Work Phone: Nitrite Urine Dipstick Negative (03/21/23 5:02 PM) [facility] Work Phone: pH Urine Dipstick 6 (03/21/23 5:02 PM) [facility] Work Phone: Protein Urine Dipstick Negative (03/21/23 5:02 PM) [facility] Work Phone: Specific [place] Urine Dipstick 1.000 (03/21/23 5:02 PM) [facility] Work Phone: Urine Color Urine Dipstick Pale Yellow (03/21/23 5:02 PM) [facility] Work Phone: Urobilinogen Urine Dipstick 0.2 mg/dl (03/21/23 5:02 PM) [facility] Work Phone: LABORATORYOrdered By: SYSTEM SYSTEM on 03-21-2023 Calcium [Mass/Vol] 9.9 mg/dL Invalid Interpretation Code 8.7 - 10.4 mg/dL AH ADM SS Chloride [Moles/Vol] 105 mmol/L Invalid Interpretation Code 98 - 110 mEq/L AH ADM SS CO2 [Moles/Vol] 24 mmol/L Invalid Interpretation Code 22 - 32 mEq/L AH ADM SS Creatinine [Mass/Vol] 0.71 mg/dL Invalid Interpretation Code 0.50 - 1.20 mg/dL AH ADM SS Electrolyte Balance 9.0 mEq/L Invalid Interpretation Code 4.0 - 15.0 mEq/L ADM SS GFR/1.73 sq M.predicted among blacks MDRD (S/P/Bld) [Vol rate/Area] ml/min/1.73sqm Invalid Interpretation Code ADM SS GFR/1.73 sq M.predicted among non-blacks MDRD (S/P/Bld) [Vol rate/Area] ml/min/1.73sqm Invalid Interpretation Code ADM SS Glucose [Mass/Vol] 83 mg/dL Invalid Interpretation Code 70 - 110 mg/dL ADM SS Hematocrit (Bld) [Volume fraction] 34.7 % Invalid Interpretation Code 34.0 - 46.0 % Workflow SS Hemoglobin (Bld) [Mass/Vol] 11.8 G/dL Invalid Interpretation Code 12.0 - 16.0 G/dL Workflow SS Potassium [Moles/Vol] 4.3 mmol/L Invalid Interpretation Code 3.5 - 5.0 mEq/L ADM Comment on above: Result Comment: Spec imen slightly hemolyzed. Sodium [Moles/Vol] 138 mmol/L Invalid Interpretation Code 136 - 145 mEq/L ADM SS Urea nitrogen [Mass/Vol] 6.0 mg/dL Invalid Interpretation Code 8.0 - 22.0 mg/dL ADM SS Urea nitrogen/Creatinine [Mass ratio] 8.5 ratio Invalid Interpretation Code 10.0 - 22.0 ratio ADM VARISon 12-01-[address] Positive Normal [facility] ([place]) Comment on above: Result Comment: INTE RPRETATION OF VARICELLA IMMUNE STATUS IgG BY EIA: Negative: No detectable VZV IgG antibody. Positive: VZV IgG antibody Detected. If clinically indicated, order Varicella IgM to rule out recent infection. Equivocal: Equivocal for antibodies to VZV. Suggest repeat testing in 10-14 days. Performed By: #### R MADAY ARGUETA VARIS, HBSAB #### [place] [address] HBSABon 11-28-2022 Hep B Surf Ab 20.3 mIU/mL Normal >=10.0 [facility] ([place]) Comment on above: Result Comment: 0 to < 10.0 mIU/mL Nonreactive Patient is considered not to have protective immunity to HBV infection >/= 10.0 mIU/mL Reactive Patient is considered to have protective immunity to HBV infection. This assay is traceable to the World Health Organization (WHO) Hepatitis B Immunoglobulin 1st International Reference Preparation (1976). The accepted criteria for immunity to HBV is anti-HBs activity >/= 10.0 mIU/mL, as defined by the WHO International Reference Preparation. Performed By: #### R MADAY ARGUETA VARIS, HBSAB #### [place] [id number] RUBEOon 11-28-2022 Rubeola IgG Ab Positive Normal [facility] ([place]) Comment on above: Result Comment: INTE RPRETATION OF RUBEOLA (MEASLES) IgG BY EIA: Negative: No detectable Measles IgG antibody. Presumed non-immune to measles virus. Positive: Measles IgG antibody Detected. Presumed immune to measles virus. If clinically indicated, order Measles IgM to rule out active infection. Equivocal: Equivocal for antibodies to Measles. Suggest repeat testing 10-14 days. Performed By: #### R MADAY ARGUETA VARIS, HBSAB #### [place] [id number] RUBISon 11-28-[address] Positive Normal Positive [facility] ([place]) Comment on above: Result Comment: This immune status assay detects IgM and/or IgG antibody to Rubella. Interpret results in conjunction with clinical history. POS: Antibody detected; exposure at undetermined recent or distant time. If clinically indicated, order Rubella IGM to rule out recent infection. NEG: No antibody detected. Performed By: #### R MADAY ARGUETA VARIS, HBSAB #### [address] [address] XR WRIST INJURY 4V PA/LAT/OB L/SCAPH LEFTon 08-19-2022 [facility] XR Wrist - left 4 Viewson IMPRESSION: Negative Cupola Melter: SYMONE Transcribe Date/Time: Aug 19 2022 11:04A Dictated by : DOUGIE COBB MD This examination was interpreted and the report reviewed and electronically signed by: DOUGIE COBB MD on Aug 19 2022 11:04AM [facility] DIVISION OF RADIOLOGY * * *Final Report* * * DATE OF EXAM: Oct 1 2022 10:56AM WOX 5272 - XR WRIST 4V PA/LAT/OBL/SCAPH LT / PROCEDURE REASON: Left wrist pain * * * * Physician Interpretation * * * * PROCEDURE: Left wrist INDICATION: Left wrist pain .Pt. states she fell 3 days ago. Pain radial aspect of Lt wrist. TECHNIQUE: XR WRIST 4V PA/LAT/OBL/SCAPH LT COMPARISON: 01/14/2018 FINDINGS: No fractures or dislocations are seen. The bones, joint spaces and soft tissues are unremarkable. DIVISION OF RADIOLOGY Provider, [facility] - 08/19/2022 * * *Final Report* * * DATE OF EXAM: Aug 19 2022 10:56AM WOX 5272 - XR WRIST 4V PA/LAT/OBL/SCAPH LT / PROCEDURE REASON: Left wrist pain * * * * Physician Interpretation * * * * PROCEDURE: Left wrist INDICATION: Left wrist pain .Pt. states she fell 3 days ago. Pain radial aspect of Lt wrist. TECHNIQUE: XR WRIST 4V PA/LAT/OBL/SCAPH LT COMPARISON: 01/14/2018 FINDINGS: No fractures or dislocations are seen. The bones, joint spaces and soft tissues are unremarkable. IMPRESSION IMPRESSION: Negative Cupola Melter: PSCB Transcribe Date/Time: Aug 19 2022 11:04A Dictated by : DOUGIE COBB MD This examination was interpreted and the report reviewed and electronically signed by: DOUGIE COBB MD on Aug 19 2022 11:04AM EST [facility] Radiology Study observation (narrative) [facility] XR Wrist - left 4 ViewsOrder ed By: Ccf Provider on 08-19-2022 [facility] Absolute lymphocyte counton 05-23-2022 Lymphocytes Auto (Unsp spec) [#/Vol] 2.06 10*3/uL 0.83-4.51 [facility] Work Phone: Basophil percentageon 2021 Basophil percentage 0 SEEN /hpf 0-5 [facility] Work Phone: Basophils/100 WBC (Bld) 0.4 % 0-1 [facility] Work Phone: Bilirubin [Mass/Vol] 0.40 mg/dL 0.20-1.00 [facility] Work Phone: Comment on above: For patients on eltr ombopag therapy, use of Dimension [place] TBIL is not recommended. Chloride [Moles/Vol] 109 mmol/L 98-107 [facility] Work Phone: Eosinophils/100 WBC (Bld) 0.3 % 0-3 [facility] Work Phone: [phone] Glucose [Mass/Vol] 96 mg/dL 74-106 [facility] Work Phone: Neutrophils (Bld) [#/Vol] 4.4 10*3/uL 2.0-7.7 [facility] Work Phone: Neutrophils/100 WBC (Bld) 63.7 % 34-64 [facility] Work Phone: Potassium [Moles/Vol] 3.8 mmol/L 3.5-5.1 [facility] Work Phone: Protein [Mass/Vol] 7.9 g/dL 6.4-8.2 [facility] Work Phone: Sodium [Moles/Vol] 141 mmol/L 136-145 [facility] Work Phone: WBC (Bld) [#/Vol] 6.9 10*3/uL 4.5-13.0 [facility] Work Phone: Beta hCG serum qualon 2021 Beta HCG ( test) Ql Negative [facility] Work Phone: Bilirubin Test strip Ql (U)o n 05-23-2022 Bilirubin Ql (U) Negative Negative [facility] Work Phone: Blood erythrocytes count (nu mber/volume)on 05-23-2022 RBC (Bld) [#/Vol] 4.61 10*6/uL 4.1-4.[address] [facility] Work Phone: Blood hemoglobin measurement (mass/volume)on 05-23-2022 Hemoglobin (Bld) [Mass/Vol] 13.1 g/dL 12.0-15.0 [facility] Work Phone: Blood lymphocytes/100 leukoc yteson 05-23-2022 Lymphocytes/100 WBC (Bld) 29.8 % 25-45 [facility] Work Phone: [phone] Blood monocytes/100 leukocyt eson 05-23-2022 Monocytes/100 WBC (Bld) 5.5 % 3-6 [facility] Work Phone: [phone] Blood platelet mean volumeon 05-23-2022 Platelet mean volume (Bld) [Entitic vol] 9.8 fL 6.2-12.0 [facility] Work Phone: [phone] Determination of erythrocyte mean corpuscular volume (MCV)on 05-23-2022 MCV (RBC) [Entitic vol] 83.9 fL 78-96 [facility] Work Phone: Direct bilirubinon Bilirubin.direct [Mass/Vol] 0.10 mg/dL 0.00-0.30 [facility] Work Phone: [phone] Hematocrit Auto (Bld) [Volum e fraction]on 05-23-2022 Hematocrit (Bld) [Volume fraction] 38.7 % 37-46 [facility] Work Phone: [phone] Ketones Test strip Ql (U)on 05-23-2022 Ketones Ql (U) Negative Negative [facility] Work Phone: [phone] Laboratory - Chemistry and C hemistry - challengeon 05-23-2022 ALP [Catalytic activity/Vol] 95 U/L 47-119 [facility] Work Phone: [phone] ALT [Catalytic activity/Vol] 22 U/L 13-56 [facility] Work Phone: [phone] CO2 [Moles/Vol] 26.0 mmol/L 21.0-32.0 [facility] Work Phone: [phone] Globulin (S) [Mass/Vol] 3.7 g/dL 2.2-4.2 [facility] Work Phone: [phone] Urea nitrogen/Creatinine [Mass ratio] 18.1 mg/mg 10-20 [facility] Work Phone: [phone] Laboratory - Hematology and Cell countson 05-23-2022 Erythrocyte distribution width (RBC) [Entitic vol] 36.5 fL 35.1-43.9 [facility] Work Phone: [phone] Erythrocyte distribution width (RBC) [Ratio] 12.0 % 11.6-14.6 [facility] Work Phone: [phone] Immature granulocytes/100 WBC (Bld) 0.300 % 0.0-0.9 [facility] Work Phone: [phone] Comment on above: IG% - Immature Granu locytes (promyelocytes, myelocytes and metamyelocytes) > 1% indicates that a LEFT SHIFT is Present. MCH (RBC) [Entitic mass] 28.4 pg 25.0-35.0 [facility] Work Phone: [phone] Nucleated RBC/100 WBC (Bld) [Ratio] 0 % 0-5 [facility] Work Phone: [phone] MCHC Auto (RBC) [Mass/Vol]on 05-23-2022 MCHC (RBC) [Mass/Vol] 33.9 g/dL 32-36 [facility] Work Phone: Mucus LM Ql (Urine sed)on Mucus Ql (Urine sed) 0 SEEN /hpf [facility] Work Phone: [phone] Nitrite Test strip Ql (U)on 05-23-2022 Nitrite Ql (U) Negative Negative [facility] Work Phone: [phone] Panel Informationon 05-23 Estimated Creatinine Clearance Calc 82.00 ml/min [facility] Work Phone: [phone] Estimated GFR (MDRD) Amer 106 mL/min >60 [facility] Work Phone: [phone] Comment on above: GFR Calc Estimated GFR (MDRD) Non-Af Amer 88 mL/min >60 [facility] Work Phone: [phone] Comment on above: Non- GFR Calc Platelets bldon 05-23-2022 Platelets (Bld) [#/Vol] 195 10*3/uL 150-450 [facility] Work Phone: Protein Test strip Ql (U)on 05-23-2022 Protein Ql (U) Negative Negative [facility] Work Phone: Serum or plasma albumin sary urement (mass/volume)on 05-23-2022 Albumin [Mass/Vol] 4.2 g/dL 3.2-5.0 [facility] Work Phone: Serum or plasma calcium sary urement (mass/volume)on 05-23-2022 Calcium [Mass/Vol] 9.5 mg/dL 8.5-10.1 [facility] Work Phone: Serum or plasma creatinine m easurement (mass/volume)on 05-23-2022 Creatinine [Mass/Vol] 0.88 mg/dL 0.55-1.02 [facility] Work Phone: Comment on above: The validity of the calculated GFR & GFRAA in patients over 70 years has not been determined. Clinical correlation is essential. Serum or plasma urea nitroge n measurement (mass/volume)on 05-23-2022 Urea nitrogen [Mass/Vol] 16 mg/dL 7-18 [facility] Work Phone: Squamous epithelial cells de tection in urine sediment by light microscopyon 05-23-2022 Epithelial cells.squamous LM Ql (Urine sed) 0-5 SEEN /hpf 5-10 [facility] Work Phone: Thin prep Papanicolaou smear with manual screeningon 05-23-2022 Thin prep Papanicolaou smear with manual screening 18 U/L 15-37 [facility] Work Phone: Thin prep Papanicolaou smear with manual screening 6 5-15 [facility] Work Phone: Urine blood detectionon RBC Ql (U) 10 /ul Negative [facility] Work Phone: RBC Ql (U) 0 SEEN /hpf 0-5 [facility] Work Phone: Urine clarityon 05-23-2022 Clarity (U) Clear Clear [facility] Work Phone: Urine color determinationon 05-23-2022 Color (U) Yellow Yellow [facility] Work Phone: Urine glucose detectionon Glucose Ql (U) Normal mg/dl Normal [facility] Work Phone: [phone] Urine leukocyte esterase det ection by dipstickon 05-23-2022 Leukocyte esterase Test strip Ql (U) Negative Negative [facility] Work Phone: Urine pHon 05-23-2022 pH (U) 6.5 [pH] 5.0 - 8.0 [facility] Work Phone: Urine sediment bacteria coun t by microscopy (number/high power field)on 05-23-2022 Bacteria LM.HPF (Urine sed) [#/Area] 1 /[HPF] None Seen [facility] Work Phone: Urine specific gravity measu rementon 05-23-2022 Specific gravity (U) [Rel density] 1.010 1.002-1.030 [facility] Work Phone: Urobilinogen Auto test strip Ql (U)on 05-23-2022 Urobilinogen Ql (U) Normal mg/dl Normal [facility] Work Phone: Laboratory - Microbiology an d Antimicrobial susceptibilityon 02-16-2022 S. pyogenes Ag IA Ql (Unsp spec) Negative [facility] Work Phone: No Panel Informationon 02-16 Monoscreen (Clinic) Negative [facility] Work Phone: S. pyogenes Ag IF Ql (Throat )on 02-16-2022 S. pyogenes Ag IA Ql (Unsp spec) Streptococcus group B [facility] Work Phone: Laboratory - Microbiology an d Antimicrobial susceptibilityon 02-06-2022 SARS-CoV-2 (COVID-19) RNA MICHAEL+probe Ql (Unsp spec) Not detected Not Detect [facility] Work Phone: Comment on above: Normal Reference Ran ge: Not DetectedMethod:(RT-PCR) real-time reverse transcriptase PCRLuminex MAR Instrument*The Food and Drug Administration (FDA) has issued an Emergency Use Authorization (EAU) for the MAR SARS-CoV-2 Assay for the rapid detection of the virus that causes COVID-19. This test has been validated, but the FDAs independent review of this validation is pending.*Negative results do not preclude infection and should not be used as the sole basis for treatment or patient management. Optimum specimen types and timing for peak viral levels during infections caused by SARS-CoV-2 have not been determined. Collection of multiple specimens from the same patient may be necessary to detect the virus. The possibility of a false negative result should be considered if the patient has clinical presentation or has had recent exposure. Clinical Summary: HMSPatient IDon 10-02-2018 MOP Invalid Interpretation Code [facility] Work Phone: Office Visit: New - 1st visi t with practice, Rm: 2on 10-02-2018 NEGATED: Highlighted rowProtein mass conc Done Invalid Interpretation Code [facility] Work Phone: NEGATED: Highlighted rowTobacco smoking status NHIS Tobacco smoking status NHIS Invalid Interpretation Code [facility] Work Phone: Progress Noteon 06-05-2018 Sports Director Authentication Interface Message Text [facility] New Patient NotePrimary Care Doctor: Linda Abdi, MDDate of service: 06/05/2018 Provider: Genaro Tabor, MSN, CNPSavannah Emeka Tejada is a 12 y.o. female was seen today in the Brain InjuryProgram, accompanied by her mother. The following is a review of her injuryhistory, exam, and treatment plan.Present injury: The injury occurred: 02/01/18, 4 months ago.TBI Description: Had headache, passed out and fell down stairs, probably hitthe back of her head and no one witnessed the incident.Brief LOC, possible few minutes of PTAAcute symptoms included: headache, dizziness, nausea, light and soundsensitivity.Management /Imagin days later was taken to [place] ED, head CT scan wasnegative, concussion diagnosed, headache infusion with minimal relief, the nextday to [facility] ED, had another headache cocktail and headache resolved.At her first visit to TBI clinic on 02/18/18 Maricruz did not think she hadsymptoms from the concussion, she had a mild headache that was back to her usualheadache severity and frequency and mild dizziness with head movement, moderatewith getting up from laying down. She had an appointment with Dr. Tristin Kennedy the next week for an abnormal EKG during her [facility] ED visit.Evaluation that day revealed Post traumatic headache acute on chronic headacheswith migraine phenotype; Vestibular dysfunction with vestibular ocular reflexsensitivity, saccadic deficiency, and mild balance problems; Cognitive changesincluding memory difficulties. I recommended magnesium, riboflavin andcyproheptadine for headaches, [facility] for[facility]ibular dysfunction and school accommodations. On 03/20/18 Maricruz feltbetter, she had been taking her medication as prescribed. She did not dophysical therapy because of scheduling misunderstanding, mom said the PT centerwas waiting for a prescription from us. Her vestibular symptoms were noted onexam again that day and I recommended physical therapy and increased herheadache medication since headaches were still frequent. At her follow up visiton 05/10/18, Maricruz and mom said she is doing much better. She had startedPhysical Therapy and was drinking 60 ounces of water a day, and 1 bottle ofgatorade, and eating salty foods every day. She had been to a horse show thatwas 4 days long and did well, she showed every day without symptoms. She hadone headache from hunger during that stretch of days. Evaluation that dayrevealed resolving chronic migraine/Post traumatic headache with preventives;resolved Vestibular dysfunction. I recommended weaning off of cyproheptadineand continuing modified activities.Today Alyssia has had an increase in severity and frequency of headaches butnotes no concussion symptoms. She noted the return of her chronic migraineheadaches after weaning off of cyproheptadine even though she continued thesupplements. She did not want to go back on cyproheptadine because it makesher too drowsy. She wants to try another preventive and mom agrees. She hasbeen doing well this summer and with riding horses. She has not playedbasketball due to headaches, she is not cleared for contact yet.Post Concussive Symptoms reviewed in the following domains:Physical: 128/80 57.5 kg (70 %, Z= 0.52, Source: [facility] 2-20 Years)Headache: Maricruz is having 2-3 headaches per week.Frequency/Duration: all dayLocation: bifrontal.Character: pounding, no pulsating.Severity: 5-8/10, not debilitating for at least 2 months.The headaches do not awakened from sleeping.Triggers/Accompani ments: light sensitivity, noise sensitivity, no nausea, novomiting, no dizziness, no numbness/tingling/weakness in extremities, no speechproblems or swallowing problems, no other focal neurological symptoms.Relief from: Sleep and Tylenol 500 mg is the best for relief.Headache phenotype (answer yes or no)Possible migraine phenotype? (A yes answer for 2/3 following items): yesIs nausea present? yesIs light sensitivity present? yesDoes headache prevent you from doing your regular activities? yesAdditional features for stratificationContinuous headache present? yesDaily headache present? yesPCSS Current Headache Score: 0Cervical: There is no neck pain, no radicular symptoms.Vestibular: There is no dizziness or unsteadiness with quick head movements.There is dizziness with getting up from laying down. Water intake: 5 x 16 oz perday, she eats something salty each day.There is no car/motion sickness.There is no tinnitus, no problems hearing.Ocular: There is no blurred vision with focusing on objects/reading. No doublevision.Cognitive: Maricruz has no mental fogginess and is not feeling slowed downmentally. There are no problems with concentration, and no problems with memory.Maricruz is going into 9th grade at [employer]. Her grades were allAs and Bs at the end of last school year, school starts 07/09/18.Sleep: Maricruz has no problems initiating sleep, and no problems stayingasleep. Sleeps 8-9 hours/night, is no drowsy in the daytime, is not napping.Mood: Parent and patient report mood is normal, is not affected by the injury.Review of systems: no new illnesses or injuries.General: Previously healthy, appetite is normal.Neurologic: Maricruz has had no previous concussion(s).There has been a history of headaches that required medical treatment, otcanalgesics, 3-5 times a week, 4-7/10 severity, sometime 1/2 day to 1 dayduration, may continue until the next day.FMH: Migraine headaches in primary family: mom, MGM and second cousin (disabledfrom headaches).There are family members with psychiatric disorders anxiety in aunt and cousinand depression in mom and MGF, aunt.PFSH: Maricruz lives with mom, dad, brother (8), sister (12). Stressorsinclude: none Usual activies include [employer] basketball, horseback riding.PHYSICAL EXAMINATION:Maricruz is right handedVision Screen: Right 20/30, Left 20/30General: well appearing, in no acute distressHydration: mucous membranes moistHead: no pain, numbness, tingling on palpation of scalp or face.Mouth: Tongue midline, pharynx without erythema or exudateEars: The external canals without swelling, cerumen impaction, or otorrhea. Thetympanic membranes are clear bilaterally.Cervical spine: Symmetric musculature, no tenderness to palpation of midline,no tenderness of paracervical muscles, AROM is full and pain free, flexion withrotation is not limited.Spurlings and compression tests are negative for radiculopathy.CV: RRR. No murmur, no carotid, periorbital, or temporal bruitsChest:/Lung: breath sounds clear and equal bilaterallyAbdomen: Soft, non-tenderExtremities: non tender, full range of motion, strengthBack: non tender, no deformity.Skin: warm, dry, no rashNEUROLOGIC EXAM:General: alert and interactive.Attention: attention span and concentration are age appropriate.Language: fluent and spontaneous without dysarthric featuresMental status: Alert and oriented x 3.Cranial Nerves: II - PERRL III - no ptosis III/IV/ - EOMs intact, gaze appears conjugate in all directions. V - normal chewing VII - symmetric smile VIII - hearing intact; balance is normal with tandem & closed eye testing IX, X - normal palatal elevation XI - normal sternocleidomastoid and trapezius function XII - normal tongue protrusion, no fasciculationsFunduscopic eye exam: sharp disc margins, vessels visualized, no papilledemaappreciated.Vest ibular/Ocular: Near point convergence is 2,2,2 cm.Near point of accommodation is 3 cm right/ 4 cm left.Vertical and horizontal saccade and slow pursuit movements are normal, there isno slowing, no undershooting, no overshooting of targets, no nystagmus.Eye tracking is non-provocative for saccadic correction.VOR gaze stability is normal, there is no dizziness, no blurriness with headmovements.Cerebellar exam: noted no tremors, gait was normal, romberg is steady, balancetesting double leg, single leg, eyes open is steady, with closed is steady,tandem stance steady with eyes open and closed, tandem gait was steady with headmovement side to side. Fine motor testing normal for rapid finger tapping, handpronation/supination, finger to object.Motor exam: normal strength, muscle mass, and tone in all extremities.Deep tendon reflexes: 2+ and equal in biceps, brachioradialis, triceps,patellar, achilles tendons.Plantar responses were flexor bilaterally.Sensation: normal to light touch in face, neck, and extremities.Pertinent abnormal exam findings include: No abnormalities noted.VISIT DIAGNOSES/ IMPRESSION: Maricruz is a 12 y.o.female with a concussion thatoccurred 17 days ago. Evaluation today reveals: resolution of concussionsymptoms. She has chronic migraines that are not under control since stoppingcyproheptadine.Ther efore I recommend:1. Headache treatment: Preventive: Start Amitriptyline as follows:Start 1/2 tablet (5 mg) x 1 week,Then increase to 1 tablet (10 mg) x 1 weeks,Then take 1 1/2 tablets (15 mg) x 1 weeks.Then take 2 tablets (20 mg).Dosing and side effects of Amitriptyline reviewed including dry mouth, weightgain, and EKG changes.Treating a breakthrough headache (rescue plan): Take Aleve, Ibuprofen orTylenol, over the counter dosing to relieve a bad headache. If needing more than3 doses a week, call to consider increasing preventive medication. Lay down heladio cool, dark quiet room, apply cold compress to forehead, chill, sleep.2. May continue to get in shape, wear a helmet for sports as appropriate.Healthy Lifestyle Treatment: Schedule regulation/sleep/nutrition/ hydration:Be sure to establish a routine for sleeping, eating, hydrating and lightexercise should be at the same time daily, (see schedule regulation handout).Again be sure to get 8-9 hours of restful sleep at night (see sleep hygienehandout). Limit naps to 30 minutes or less. Plan to do something fun and safeupon awakening.Be sure to drink and eat throughout the day (see Concussion Tips Handout).Increase fluid intake to at least 80-100 ounces/day, at least half of fluidintake should be water. Eat something salty daily.Make sure to use relaxation to lessen stress as much as possible. (See handout).No caffeine, artificial sweeteners or energy drinks.Do not skip any meals, add more protein to diet at each meal, eat frequently.[facility] for a follow up visit in 6weeks. She should be 2 weeks headache free on supplements prior toconsideration of clearance for contact.60 minute visit; > 50% of the [id number] visit time was dedicated tocounseling and coordination of medical care. We discussed the fact that thereis a greater risk of having subsequent concussions after sustaining aconcussion, although there is no evidence to help us calculate that risk. Wetalked about strategies to prevent concussions, how to detect the symptoms ofconcussion, remove them from contact activities and to seek immediate medicalevaluation. It is not known how many concussions are too many, but there may becumulative watermelon inspector effects and increasing sensitivity after having multipleconcussions. Prevention strategies including head protection, the need forproper training and conditioning were discussed. I discussed the use ofAmitriptyline and side effects including the suicide warning. They voicedunderstanding and agreed with this plan of care. Normal [facility] Progress Noteon 04-29-2018 Sports Director Authentication Interface Message Text [facility] New Patient NotePrimary Care Doctor: Linda Abdi, MDDate of service: 04/29/2018 Provider: Genaro Tabor, MSN, CNPSavanmichelle Emeka Huangn is a 12 y.o. female was seen today in the Brain InjuryProgram, accompanied by her mother. The following is a review of her injuryhistory, exam, and treatment plan.Present injury: The injury occurred: 02/01/18, 2.5 months ago.TBI Description: Had headache, passed out and fell down stairs, probably hitthe back of her head and no one witnessed the incident.Brief LOC, possible few minutes of PTAAcute symptoms included: headache, dizziness, nausea, light and soundsensitivity.Management /Imagin days later was taken to [place] ED, head CT scan wasnegative, concussion diagnosed, headache infusion with minimal relief, the nextday to [facility] ED, had another headache cocktail and headache resolved.At her first visit to TBI clinic on 02/18/18 Maricruz did not think she hadsymptoms from the concussion, she had a mild headache that was back to her usualheadache severity and frequency and mild dizziness with head movement, moderatewith getting up from laying down. She had an appointment with Dr. Tristin Kennedy the next week for an abnormal EKG during her [facility] ED visit.Evaluation that day revealed Post traumatic headache acute on chronic headacheswith migraine phenotype; Vestibular dysfunction with vestibular ocular reflexsensitivity, saccadic deficiency, and mild balance problems; Cognitive changesincluding memory difficulties. I recommended magnesium, riboflavin andcyproheptadine for headaches, physical therapy at [facility] forvestibular dysfunction and school accommodations. On 03/20/18 Maricruz valdez, she had been taking her medication as prescribed. She did not dophysical therapy because of scheduling misunderstanding, mom said the PT centerwas waiting for a prescription from us. Her vestibular symptoms were noted onexam again that day and I recommended physical therapy and increased herheadache medication since headaches were still frequent.Today Maricruz and mom say she is doing much better. She has started PhysicalTherapy and is drinking 60 ounces of water a day, and 1 bottle of gatorade, andeating salty foods every day. She has been to a horse show that was 4 days longand did well, she showed every day without symptoms. She had one headache fromhunger during that stretch of days.Post Concussive Symptoms reviewed in the following domains:Physical: 132/68 57.2 kg (70 %, Z= 0.52, Source: [facility] 2-20 Years)Headache: Maricruz is having 1 headache per week or less.Frequency/Duration: a couple of hoursLocation: bifrontal.Character: pounding, no pulsating.Severity: 4/10, not debilitating for at least 2 months.The headaches do not awakened from sleeping.Triggers/Accompani ments: no light sensitivity, no noise sensitivity, no nausea,no vomiting, no dizziness, no numbness/tingling/weakness in extremities, nospeech problems or swallowing problems, no other focal neurological symptoms.Relief from: Sleep and Advil or Tylenol 500 mg.Headache phenotype (answer yes or no)Possible migraine phenotype? (A yes answer for 2/3 following items): noIs nausea present? noIs light sensitivity present? noDoes headache prevent you from doing your regular activities? noAdditional features for stratificationContinuous headache present? noDaily headache present? noPCSS Current Headache Score: 0Cervical: There is no neck pain, no radicular symptoms.Vestibular: There is no dizziness or unsteadiness with quick head movements.There is mild dizziness with getting up from laying down. Water intake: 3 x 20oz per day, she continues to struggle to drink water.There is no car/motion sickness.There is no tinnitus, no problems hearing.Ocular: There is no blurred vision with focusing on objects/reading. No doublevision.Cognitive: Maricruz has no mental fogginess and is not feeling slowed downmentally. There are no problems with concentration, and no problems with memory.Maricruz is going into 9th grade at [employer]. Her grades were allAs and Bs at the end of this school year.Sleep: Maricruz has no problems initiating sleep, and no problems stayingasleep. Sleeps 8-9 hours/night, is no drowsy in the daytime, is not napping.Mood: Parent and patient report mood is normal, is not affected by the injury.Review of systems: no new illnesses or injuries.General: Previously healthy, appetite is normal.Neurologic: Maricruz has had no previous concussion(s).There has been a history of headaches that required medical treatment, otcanalgesics, 3-5 times a week, 4-7/10 severity, sometime 1/2 day to 1 dayduration, may continue until the next day.FMH: Migraine headaches in primary family: mom, MGM and second cousin (disabledfrom headaches).There are family members with psychiatric disorders anxiety in aunt and cousinand depression in mom and MGF, aunt.PFSH: Maricruz lives with mom, dad, brother (8), sister (12). Stressorsinclude: none Usual activies include [employer] basketball, horseback riding.PHYSICAL EXAMINATION:Maricruz is right handedVision Screen: Right 20/30, Left 20/30General: well appearing, in no acute distressHydration: mucous membranes moistHead: no pain, numbness, tingling on palpation of scalp or face.Mouth: Tongue midline, pharynx without erythema or exudateEars: The external canals without swelling, cerumen impaction, or otorrhea. Thetympanic membranes are clear bilaterally.Cervical spine: Symmetric musculature, no tenderness to palpation of midline,no tenderness of paracervical muscles, AROM is full and pain free, flexion withrotation is not limited.Spurlings and compression tests are negative for radiculopathy.CV: RRR. No murmur, no carotid, periorbital, or temporal bruitsChest:/Lung: breath sounds clear and equal bilaterallyAbdomen: Soft, non-tenderExtremities: non tender, full range of motion, strengthBack: non tender, no deformity.Skin: warm, dry, no rashNEUROLOGIC EXAM:General: alert and interactive.Attention: attention span and concentration are age appropriate.Language: fluent and spontaneous without dysarthric featuresMental status: Alert and oriented x 3.Cranial Nerves: II - PERRL III - no ptosis III/IV/ - EOMs intact, gaze appears conjugate in all directions. V - normal chewing VII - symmetric smile VIII - hearing intact; balance is normal with tandem & closed eye testing IX, X - normal palatal elevation XI - normal sternocleidomastoid and trapezius function XII - normal tongue protrusion, no fasciculationsFunduscopic eye exam: sharp disc margins, vessels visualized, no papilledemaappreciated.Vest ibular/Ocular: Near point convergence is 2,2,2 cm.Near point of accommodation is 3 cm right/ 4 cm left.Vertical and horizontal saccade and slow pursuit movements are normal, there isno slowing, no undershooting, no overshooting of targets, no nystagmus.Eye tracking is mildly provocative for saccadic correction.VOR gaze stability is normal, there is dizziness, mild blurriness with headmovements.Cerebellar exam: noted no tremors, gait was normal, romberg is slightly steady,balance testing double leg, single leg, eyes open is steady, with closed issteady, tandem stance steady with eyes open and closed, tandem gait was steadywith head movement side to side. Fine motor testing normal for rapid fingertapping, hand pronation/supination, finger to object.Motor exam: normal strength, muscle mass, and tone in all extremities.Deep tendon reflexes: 2+ and equal in biceps, brachioradialis, triceps,patellar, achilles tendons.Plantar responses were flexor bilaterally.Sensation: normal to light touch in face, neck, and extremities.Pertinent abnormal exam findings include: mild tracking saccadic correction.VISIT DIAGNOSES/ IMPRESSION: Maricruz is a 12 y.o.female with a concussion thatoccurred 17 days ago. Evaluation today reveals: resolving chronic migraine/Posttraumatic headache with preventives; resolved Vestibular dysfunction.Therefore I recommend:1. Headache treatment: Preventive: Take cyproheptadine 4 mg (1 tablet) for 5days then stop. May consider starting Amitriptyline 5 mg at bedtime ifheadaches return.Continue to take Magnesium oxide 400 mg once a day and Riboflavin (vitamin B2)200 mg twice a day for prevention of headaches. These are dietary supplementsthat should be taken every day. See patient information handout for indicationsand side effects.Treating a breakthrough headache (rescue plan): Take Aleve, Ibuprofen orTylenol, over the counter dosing to relieve a bad headache. If needing more than3 doses a week, call to consider increasing preventive medication. Lay down heladio cool, dark quiet room, apply cold compress to forehead, chill, sleep.2. Vestibular dysfunction/convergence insufficiency/saccadicdefic iency/cervical strain: Finish Physical Therapy in 1 - 2 week, may beginexertional training. Will begin to condition with [employer], see note to field hockey and lacrosse coach.Healthy Lifestyle Treatment: Schedule regulation/sleep/nutrition/ hydration:Be sure to establish a routine for sleeping, eating, hydrating and lightexercise should be at the same time daily, (see schedule regulation handout).Again be sure to get 8-9 hours of restful sleep at night (see sleep hygienehandout). Limit naps to 30 minutes or less. Plan to do something fun and safeupon awakening.Be sure to drink and eat throughout the day (see Concussion Tips Handout).Increase fluid intake to at least 80-100 ounces/day, at least half of fluidintake should be water.Make sure to use relaxation to lessen stress as much as possible. (See handout).No caffeine, artificial sweeteners or energy drinks.Do not skip any meals, add more protein to diet at each meal, eat frequently.[facility] for a follow up visit in 6weeks. She should be 2 weeks headache free on supplements prior toconsideration of clearance for contact.60 minute visit; > 50% of the imad-no-gftd visit time was dedicated tocounseling and coordination of medical care. We discussed the fact that thereis a greater risk of having subsequent concussions after sustaining aconcussion, although there is no evidence to help us calculate that risk. Wetalked about strategies to prevent concussions, how to detect the symptoms ofconcussion, remove them from contact activities and to seek immediate medicalevaluation. It is not known how many concussions are too many, but there may becumulative prison effects and increasing sensitivity after having multipleconcussions. Mom was anxious to get Maricruz to play and wanted to push herclearance sooner, she agreed to the above plan and criteria for clearance, nosymptoms, back in shape and following all prevention strategies. Preventionstrategies including head protection, the need for proper training andconditioning were discussed. They voiced understanding and agreed with thisplan of care. Normal [facility] Progress Noteon 03-20-2018 Sports Director Authentication Interface Message Text [facility] New Patient NotePrimary Care Doctor: Linda Abdi, MDDate of service: 03/20/2018 Provider: Genaro Tabor, MSN, [facility]anna Emeka Tejada is a 12 y.o. female was seen today in the Brain InjuryProgram, accompanied by her mother. The following is a review of her injuryhistory, exam, and treatment plan.Present injury: The injury occurred: 02/01/18, 6 weeks ago.TBI Description: Had headache, passed out and fell down stairs, probably hitthe back of her head and no one witnessed the incident.Brief LOC, possible few minutes of PTAAcute symptoms included: headache, dizziness, nausea, light and soundsensitivity.Management /Imagin days later was taken to [facility], head CT scan wasnegative, concussion diagnosed, headache infusion with minimal relief, the nextday to [facility] ED, had another headache cocktail and headache resolved.At her first visit to TBI clinic on 02/18/18 Maricruz did not think she hadsymptoms from the concussion, she had a mild headache that was back to her usualheadache severity and frequency and mild dizziness with head movement, moderatewith getting up from laying down. She had an appointment with Dr. Tristin Kennedy next week for an abnormal EKG during her [facility] ED visit. Evaluationthat day revealed Post traumatic headache acute on chronic headaches withmigraine phenotype; Vestibular dysfunction with vestibular ocular reflexsensitivity, saccadic deficiency, and mild balance problems; Cognitive changesincluding memory difficulties. I recommended magnesium, riboflavin andcyproheptadine for headaches, [facility] at [facility] for[facility]ibular dysfunction and school accommodations.Today Maricruz says she is feeling better, she has been taking her medication asprescribed. She did not do physical therapy because of schedulingmisunderstanding, mom says the PT center was waiting for a prescription from us.Post Concussive Symptoms reviewed in the following domains:Physical: 110/64 56.2 kg (68 %, Z= 0.45, Source: CDC 2-20 Years)Headache: Maricruz is having headaches 2 - 3 times a week.Frequency/Duration: all day to a couple of hoursLocation: bifrontal.Character: pounding, no pulsating.Severity: 2-5 /10, not debilitating in the last week.The headaches do not awakened from sleeping.Triggers/Accompani ments: light sensitivity, noise sensitivity, sometimes nausea,no vomiting, sometimes with severe headaches dizziness, nonumbness/tingling/weaknes s in extremities, no speech problems or swallowingproblems, no other focal neurological symptoms.Relief from: Sleep and Advil or Tylenol 500 mg.Headache phenotype (answer yes or no)Possible migraine phenotype? (A yes answer for 2/3 following items): yesIs nausea present? noIs light sensitivity present? yesDoes headache prevent you from doing your regular activities? sometimesAdditional features for stratificationContinuous headache present? noDaily headache present? noPCSS Current Headache Score: 3Cervical: There is no neck pain, no radicular symptoms.Vestibular: There is mild dizziness or unsteadiness with quick head movements.There is moderate dizziness with getting up from laying down. Water intake: 2 x16 oz per day.There is no car/motion sickness.There is no tinnitus, no problems hearing.Ocular: There is no blurred vision with focusing on objects/reading. No doublevision.Cognitive: Maricruz has no mental fogginess and is not feeling slowed downmentally. There are no problems with concentration, and no problems with memory.Maricruz is in 8th grade at [employer]. Her grades have been As andBs, school performance is not affected by the injury, is attending full days.Sleep: Maricruz has no problems initiating sleep, and no problems stayingasleep. Sleeps 8-9 hours/night, is drowsy in the daytime, is not napping.Mood: Parent and patient report mood is normal, is not affected by the injury.Review of systems: Planting Material Unloader diagnosed vasovagal syncope, counseled onhydration, prevention.General: Previously healthy, appetite is normal.Neurologic: Maricruz has had no previous concussion(s).There has been a history of headaches that required medical treatment, otcanalgesics, 3-5 times a week, 4-7/10 severity, sometime 1/2 day to 1 dayduration, may continue until the next day.FMH: Migraine headaches in primary family: mom, MGM and second cousin (disabledfrom headaches).There are family members with psychiatric disorders anxiety in aunt and cousinand depression in mom and MGF, aunt.PFSH: Maricruz lives with mom, dad, brother (8), sister (12). Stressorsinclude: none Usual activies include [employer] basketball, horseback riding.PHYSICAL EXAMINATION:Maricruz is right handedVision Screen: Right 20/30, Left 20/30General: well appearing, in no acute distressHydration: mucous membranes moistHead: no pain, numbness, tingling on palpation of scalp or face.Mouth: Tongue midline, pharynx without erythema or exudateEars: The external canals without swelling, cerumen impaction, or otorrhea. Thetympanic membranes are clear bilaterally.Cervical spine: Symmetric musculature, no tenderness to palpation of midline,no tenderness of paracervical muscles, AROM is full and pain free, flexion withrotation is not limited.Spurlings and compression tests are negative for radiculopathy.CV: RRR. No murmur, no carotid, periorbital, or temporal bruitsChest:/Lung: breath sounds clear and equal bilaterallyAbdomen: Soft, non-tenderExtremities: non tender, full range of motion, strengthBack: non tender, no deformity.Skin: warm, dry, no rashNEUROLOGIC EXAM:General: alert and interactive.Attention: attention span and concentration are age appropriate.Language: fluent and spontaneous without dysarthric featuresMental status: Alert and oriented x 3.Cranial Nerves: II - PERRL III - no ptosis III/IV/ - EOMs intact, gaze appears conjugate in all directions. V - normal chewing VII - symmetric smile VIII - hearing intact; balance is abnormal with tandem & closed eye testing IX, X - normal palatal elevation XI - normal sternocleidomastoid and trapezius function XII - normal tongue protrusion, no fasciculationsFunduscopic eye exam: sharp disc margins, vessels visualized, no papilledemaappreciated.Vest ibular/Ocular: Near point convergence is 2,2,2 cm.Near point of accommodation is 3 cm right/ 4 cm left.Vertical and horizontal saccade and slow pursuit movements are abnormal, thereis mild slowing, undershooting, no overshooting of targets, no nystagmus.Eye tracking is provocative for dizziness/discomfort/saccad ic correction.VOR gaze stability is normal, there is dizziness, mild blurriness with headmovements.Cerebellar exam: noted no tremors, gait was normal, romberg is slightlyunsteady, balance testing double leg, single leg, eyes open is steady, withclosed is unsteady, tandem stance unsteady with eyes open and closed, tandemgait was unsteady with head movement side to side.Fine motor testing normal for rapid finger tapping, hand pronation/supination,finger to object.Motor exam: normal strength, muscle mass, and tone in all extremities.Deep tendon reflexes: 2+ and equal in biceps, brachioradialis, triceps,patellar, achilles tendons.Plantar responses were flexor bilaterally.Sensation: normal to light touch in face, neck, and extremities.Pertinent abnormal exam findings include: VOR sensitivity, saccadic deficiency,mild tandem and closed eye balance problems.VISIT DIAGNOSES/ IMPRESSION: Maricruz is a 12 y.o.female with a concussion thatoccurred 17 days ago. Evaluation today reveals: Post traumatic headache acuteon chronic headaches with migraine phenotype lessening with preventives;Vestibular dysfunction with vestibular ocular reflex sensitivity, saccadicdeficiency, and mild balance problems continue; Cognitive changes includingmemory difficulties lessening.Therefore I recommend:1. Headache treatment: Preventive: Increase cyproheptadine 8 mg (2 tablets) atbedtime for 2 weeks then increase to 10mg (2.5 tablets) at bedtime.Continue to take Magnesium oxide 400 mg once a day and Riboflavin (vitamin B2)200 mg twice a day for prevention of headaches. These are dietary supplementsthat should be taken every day. See patient information handout for indicationsand side effects.Treating a breakthrough headache (rescue plan): Take Aleve, Ibuprofen orTylenol, over the counter dosing to relieve a bad headache. If needing more than3 doses a week, call to consider increasing preventive medication. Lay down heladio cool, dark quiet room, apply cold compress to forehead, chill, sleep.2. Vestibular dysfunction/convergence insufficiency/saccadicdefic iency/cervical strain: Physical Therapy is recommended for vestibularocular dysfunction and cervical strain. [facility] site is recommended. Maybegin with low level exertion and increase as tolerated and physical therapyguides. Daily low level relaxing activity is recommended. Avoid tumbling,jumping, climbing, twirling or swinging activities until cleared.3. Cognitive treatment/school accommodations: Full days of school as tolerated.Allow extra time to turn in assignments and tests, quiet room for testing.Consider open book/note tests until caught up. See letter to school fordetails.4. Mood treatment: Carefully monitor behavior and attention, calmly discussthe proper behavior in non-emotional way to re-train proper behavior.5. Sleep disturbance: It is crucial to have a good sleep routine, 8 - 11hours/night, limit napping, no interactive electronics before bed.Healthy Lifestyle Treatment: Schedule regulation/sleep/nutrition/ hydration:Be sure to establish a routine for sleeping, eating, hydrating and lightexercise should be at the same time daily, (see schedule regulation handout).Again be sure to get 8-9 hours of restful sleep at night (see sleep hygienehandout). Limit naps to 30 minutes or less. Plan to do something fun and safeupon awakening.Be sure to drink and eat throughout the day (see Concussion Tips Handout).Increase fluid intake to at least 80-100 ounces/day, at least half of fluidintake should be water.Make sure to use relaxation to lessen stress as much as possible. (See handout).No caffeine, artificial sweeteners or energy drinks.Do not skip any meals, add more protein to diet at each meal, eat frequently.[facility] for a follow up visit in 4weeks.60 minute visit; > 50% of the eaqc-vm-brgs visit time was dedicated tocounseling and coordination of medical care. I discussed the expected recoveryprocess for concussion with mom and patient. Risk factors and aggravatingfactors that complicate or slow recovery time were also explained to themincluding non-compliance with treatment recommendations for physical therapy. Irecommended increasing cyproheptadine and starting vestibular PT, will considercognitive memory therapy if continued problems when headaches and VOD haveresolved. She is to get adequate rest, good sleep, stress relief strategies,healthy nutrition, hydration, and information on how to promote healing andavoid aggravating factors were given to them. Treatment plan compliance, andthe need to modify activities and prevention strategies including headprotection were discussed. They voiced understanding and agreed with this planof care. Normal [facility] Progress Noteon 02-26-2018 Sports Director Authentication Interface Message Text History of Presenting Illness:Maricruz is a 12 y.o. female who had a syncopal episode three weeks ago and wasreferred to us by Dr. Linda Abdi for further evaluation. She is accompaniedby her mother.Maricruz recalls she has been having frequent headaches and on the day of theincident, she was having a headache. She got up from bed and felt dizzy. Whendusty got ready to go the stairs, the dizziness was quite severe and she felt hervision close in on her. There was no associated chest pain, palpitations,flushing, ringing in ears, or any other prodromes. Maricruz then passed outand fell down the stairs, likely hitting the back of her head. Her two youngersiblings were at home, heard the noise and came to check up on her. She waslater seen in the emergency room where an ECG performed was concerning for rightventricular hypertrophy. After thorough evaluation, she was discharged in goodcondition and has been following with our neurology team for a concussion. Shecurrently has a medically regimen put in place to help with migraines as well aswith the concussion.Maricruz reports that for the past several months in addition to the headachesdusty has been having intermittent presyncope with sudden positional changes.Often, she gets briefly dizzy and has to take a few minutes before her symptomsresolve.Maricruz drinks about two 16 oz bottles of water daily. She avoids caffeinecontaining beverages. She only has an occasional soda.She is otherwise active and enjoys basketball. She feel though in the last fewmonths she gets tired a bit sooner than she did in the past.Non-Cardiac ROS:GENERAL: No weight loss or fevers.HEENT: No nasal congestion, ear infection, or eye redness/discharge. + headachesRESPIRATORY: Negative for cough, wheezingGI: No vomiting, diarrhea, or constipationMUSCULOSKELETAL : Negative for joint or muscle pain or swellingSKIN: Negative for lesions or rashesAll other systems reviewed and are negative except as detailed above.Past Medical/Surgical History:Maricruz has a history of migraines. She had kidney stones at 1 years of age andneeded a urological procedure.Medications:Sawyer rodriguez Outpatient PrescriptionsMedication Sig Dispense Refill magnesium oxide (MAG OX) 400 MG TABS tablet Take 1 Tab (400 mg) by mouth daily60 Tab 2 vitamin B-2 (RIBOFLAVIN) 100 MG capsule Take 2 tablets (200 mg) by mouth twicea day. 120 Each 3 cyproheptadine (PERIACTIN) 4 MG tablet At bedtime take 1/2 tablet (2 mg) for 2days, then increase to 1 tablet (4 mg), in 1 week increase to 1.5 (6 mg)tablets. 60 Tab 2 Naproxen Sodium (ALEVE PO) Take by mouthNo current facility-administered medications for this visit.Allergies:AllergiesAl lergen Reactions Codeine HivesFamily History:Negative for congenital heart disease, sudden unexplained , earlyatherosclerotic heart disease, arrhythmia, long QT syndrome, unexplaineddrowning, aneurysms, heart transplantation or pacemaker requirement at a youngage on the maternal or paternal side of the family.Social History:Lives at home with family. She enjoys basketball and riding horsesPhysical Exam:BP 135/67 (BP Site: Right Arm, Patient Position: Supine, BP Cuff Size: Adult) Pulse 86 Resp 20 Ht 158 cm Wt 55.3 kg SpO2 100% BMI 22.15 kg/m GENERAL APPEARANCE: alert, in no distressSKIN: Acyanotic, no rashSKEL: No pectusHEENT: Normal sclera, moist mucus membranes.PULM: Lungs are clear to auscultation and there is no grunting, flaring orretractingCARDIAC: The precordium is normally active. No heave or thrill. The rate wasregular with normal S1 and a physiologically splitting S2. No systolic,diastolic, or continuous murmurs in the supine, sitting, or standing positions.Normal heart rate variability with position. No clicks, rub or gallop rhythm.ABDOMEN: Soft, non-tender with liver edge not palpable below the right costalmarginEXTREMITIES: Normal upper and lower extremity pulses with no brachio-femoraldelay; normal perfusion. No clubbing or peripheral edemaStudies:1. EKG (02/26/2018): Normal sinus rhythm, ventricular rate of 84 beats perminute. No pre-excitation, or ectopy. Normal QTc interval. No abnormalities inaxes, intervals, or voltages (Normal ECG)2. Echocardiogram (02/26/2018 ): Normal cardiac structure and function.Discussion:Alyssia smith is a 12 y.o. female here for evaluation for syncope. The cardiovascularexam, ECG, and echocardiogram today are normal. There is no evidence of outflowtract obstruction, aortic coarctation, valve disease, septation defect,myocardial dysfunction, pulmonary hypertension, or electrophysiologic disease. Ireviewed the ECG from the ED which appears to have had precordial lead reversal.Her ECG today is completely normal.I do not think Maricruz's syncopal episode was cardiac in etiology. Maricruz'sepisode was probably a combination of a vasovagal process compounded by have asignificant migraine episode. I have educated her on the hallmark therapy forvasovagal syncope which is intentional fluid hydration. I advised that with thedizziness either with positional changes or a migraine she sit or lay down toprevent another syncopal event and/or traumatic injury associated with falling.Maricruz should increase her fluid intake ensuring clear urine and perform legand arm flexing prior to getting up. Maricruz should also avoid caffeinecontaining beverages as these can have a diuretic effect. I also reviewed withMaricruz the principles of smart exercise including careful body awareness,gradual conditioning and modulation of activity for any symptoms.Maricruz can be treated as a normal teenager from a cardiac perspective. Thereare no special diet or activity restrictions. She needs no follow-up but I wouldbe glad to see her in the future if there are any further concerns regarding hercardiovascular system.Impression:Likely Vasovagal syncopeMigrainesConcussionP flavio:1. Medications: No cardiac medications2. SBE Prophylaxis: No3. Activity: No restrictions4. No cardiac contraindication to surgery or general anesthesia5. Studies pending: None6. Return appointment and studies: As needed Normal [facility] Progress Noteon 02-18-2018 Sports Director Authentication Interface Message Text [facility] New Patient NotePrimary Care Doctor: Linda Abdi, MDDate of service: 02/18/2018 Provider: Genaro Tabor, MSN, CNPSavannah Emeka Tejada is a 12 y.o. female was seen today in the Brain InjuryProgram, accompanied by her mother. The following is a review of her injuryhistory, exam, and treatment plan.Present injury: The injury occurred: 02/01/18, 17 days ago.TBI Description: Had headache, passed out and fell down stairs, probably hitthe back of her head and no one witnessed the incident.Brief LOC, possible few minutes of PTAAcute symptoms included: headache, dizziness, nausea, light and soundsensitivity.Management /Imagin days later was taken to [facility] ED, head CT scan wasnegative, concussion diagnosed, headache infusion with minimal relief, the nextday to [facility] ED, had another headache cocktail and headache resolved.Today she doesn't think she has symptoms from the concussion, she does note mildheadache that is back to her usual headache severity and frequency and milddizziness with head movement, moderate with getting up from laying down. Shehas an appointment with Dr. Chun in Cardiology next week for an abnormal EKGfrom [facility].Post Concussive Symptoms reviewed in the following domains:Physical: 116/76 54.9 kg (64 %, Z= 0.36, Source: [facility] 2-20 Years)Headache: Maricruz is having headaches 3- 5 times a week. Similar to previouschronic headaches.Frequency/Duratio n: 1/2 day to 1.5 days.Location: bifrontal.Character: pressure, pounding, no pulsating.Severity: 5-7 /10, not debilitating in the last week.The headaches do not awakened from sleeping.Triggers/Accompani ments: light sensitivity, noise sensitivity, no nausea, novomiting, sometimes with severe headaches dizziness, nonumbness/tingling/weaknes s in extremities, no speech problems or swallowingproblems, no other focal neurological symptoms.Relief from: Sleep and Advil or Tylenol 500 mg.Headache phenotype (answer yes or no)Possible migraine phenotype? (A yes answer for 2/3 following items): yesIs nausea present? noIs light sensitivity present? yesDoes headache prevent you from doing your regular activities? sometimesAdditional features for stratificationContinuous headache present? noDaily headache present? noPCSS Current Headache Score: 1Cervical: There is no neck pain, no radicular symptoms.Vestibular: There is mild dizziness or unsteadiness with quick head movements.There is moderate dizziness with getting up from laying down. Water intake: 2 x16 oz per day.There is no car/motion sickness.There is no tinnitus, no problems hearing.Ocular: There is no blurred vision with focusing on objects/reading. No doublevision.Cognitive: Maricruz has no mental fogginess and is not feeling slowed downmentally. There are no problems with concentration, and no problems with memory.Maricruz is in 8th grade at [employer]. Previous grades have beenAs and Bs, school performance is not affected by the injury, missed 1 day ofschool, is attending full days. Favorite subject is language, least favorite ismath.Sleep: Maricruz has no problems initiating sleep, and no problems stayingasleep. Sleeps 9 hours/night, is drowsy in the daytime, is napping 2 times aweeks.Mood: Parent and patient report mood is normal, is not affected by the injury.Review of systems: Abnormal EKG at [facility] ED will see general farm manager next week, postsyncopal episode.General: Previously healthy, appetite is normal.Neurologic: Maricruz has had no previous concussion(s).There has been a history of headaches that required medical treatment, 3 - 5times a week, 4-7/10 severity, sometime 1/2 day to 1 day duration, may continueuntil the next day for 1 year. She has been having more headaches fromexcessive phone use in that time.There has been no history of staring spells, seizures, neurologic problems. history/development: full term, healthy, no developmental delays.There were no complications of mom's or at ( after 37hours of labor).Vestibular: There have been no impaired balance, dizziness, coordinationproblems.There has been no premorbid motion sickness.Ocular: There have been previous vision problems glasses for distanceassistance.Cognitiv e: There has been no history of learning disability, no IEP, no speechtherapy, no history of ADD/ADHD.Sleep: There have been no previous sleep disturbances.Mood: There have been no past behavioral or mood conditions.There has been no previous ETOH/drug use/abuse.FMH: Migraine headaches in primary family: mom, MGM and second cousin (disabledfrom headaches).There are no family members with seizures, family members with braindiseases,MGF had benign brain tumor not hereditary. There are family memberswith psychiatric disorders anxiety in aunt and cousin and depression in mom andMGF, aunt.PFSH: Maricruz lives with mom, dad, brother (8), sister (12). Stressorsinclude: none Usual activies include [employer] basketball, horseback riding.PHYSICAL EXAMINATION:Maricruz is right handedVision Screen: Right 20/30, Left 20/30General: well appearing, in no acute distressHydration: mucous membranes moistHead: no pain, numbness, tingling on palpation of scalp or face.Mouth: Tongue midline, pharynx without erythema or exudateEars: The external canals without swelling, cerumen impaction, or otorrhea. Thetympanic membranes are clear bilaterally.Cervical spine: Symmetric musculature, no tenderness to palpation of midline,no tenderness of paracervical muscles, AROM is full and pain free, flexion withrotation is not limited.Spurlings and compression tests are negative for radiculopathy.CV: RRR. No murmur, no carotid, periorbital, or temporal bruitsChest:/Lung: breath sounds clear and equal bilaterallyAbdomen: Soft, non-tenderExtremities: non tender, full range of motion, strengthBack: non tender, no deformity.Skin: warm, dry, no rashNEUROLOGIC EXAM:General: alert and interactive.Attention: attention span and concentration are age appropriate.Language: fluent and spontaneous without dysarthric featuresMental status: Alert and oriented x 3.Cranial Nerves: II - PERRL III - no ptosis III/IV/ - EOMs intact, gaze appears conjugate in all directions. V - normal chewing VII - symmetric smile VIII - hearing intact; balance is abnormal with tandem & closed eye testing IX, X - normal palatal elevation XI - normal sternocleidomastoid and trapezius function XII - normal tongue protrusion, no fasciculationsFunduscopic eye exam: sharp disc margins, vessels visualized, no papilledemaappreciated.Vest ibular/Ocular: Near point convergence is 2,2,2 cm.Near point of accommodation is 3 cm right/ 4 cm left.Vertical and horizontal saccade and slow pursuit movements are abnormal, thereis mild slowing, undershooting, no overshooting of targets, no nystagmus.Eye tracking is provocative for dizziness/discomfort/saccad ic correction.VOR gaze stability is normal, there is dizziness, mild blurriness with headmovements.Cerebellar exam: noted no tremors, gait was normal, romberg is slightlyunsteady, balance testing double leg, single leg, eyes open is steady, withclosed is unsteady, tandem stance unsteady with eyes open and closed, tandemgait was unsteady with head movement side to side.Fine motor testing normal for rapid finger tapping, hand pronation/supination,finger to object.Motor exam: normal strength, muscle mass, and tone in all extremities.Deep tendon reflexes: 2+ and equal in biceps, brachioradialis, triceps,patellar, achilles tendons.Plantar responses were flexor bilaterally.Sensation: normal to light touch in face, neck, and extremities.Pertinent abnormal exam findings include: VOR sensitivity, saccadic deficiency,mild tandem and closed eye balance problems.TEST RESULTS:Post Concussion Symptoms Score: First 24 hours 56, most recent 24 hours 9.Specific symptoms today include: headache 1/6, dizziness 0/6, 2/6sensitivities.Convergenc e Insufficiency Survey Score: 14Psychological/Mood Screen:The Donaldson Depression Inventory was completed.The RS was 2 and TS was 36. This is in the much lower than average range.The Donaldson Anxiety Inventory was completed.The RS was 11 and TS was 44. This is in the lower than average range.Cognitive Test of Brain Injury :Pediatric Test of Brain Injury:Subtests:Subtest 1: Orientation: HighSubtest 2: Following Commands: HighSubtest 3: Word Fluency: ModerateSubtest 4: What Goes Together: HighSubtest 5: Digit Span: HighSubtest 6: Naming: HighSubtest 7: Story Retelling-Immediate: LowSubtest 8: Yes/No/Maybe: HighSubtest 9: Picture Recall: LowSubtest 10: Story Retelling-Delayed: Very Low Recommendations:1. Deficits are noted with both immediate and delayed memory. Maricruz reportsthat these deficits are new since her accident. It is recommended that Oseas her mother consider short-term speech therapy to address memory deficits.Mother was provided Sandi Leger [facility] contact information to call ifinterested in the therapy group. In addition, nurse aide evaluator provided Maricruz carlin mother with strategy handout, that included both internal and externalmemory strategies. Jose Carlos Mcqueen M.S., [facility] Speech-Language [id number] AMVISIT DIAGNOSES/ IMPRESSION: Maricruz is a 12 y.o.female with a concussion thatoccurred 17 days ago. Evaluation today reveals: Post traumatic headache acuteon chronic headaches with migraine phenotype; Vestibular dysfunction withvestibular ocular reflex sensitivity, saccadic deficiency, and mild balanceproblems; Cognitive changes including memory difficulties.Therefore I recommend:1. Headache treatment: Preventive: Take Magnesium oxide 400 mg once a day andRiboflavin (vitamin B2) 200 mg twice a day for prevention of headaches. Theseare dietary supplements that should be taken every day. See patient informationhandout for indications and side effects.Take cyproheptadine 2 mg (1/2 tablet) at bedtime for 2 days then increase to 4mg (1 tablet) at bedtime, may increase in 1 week to 1.5 tablets (6 mg) ifheadaches persist. This is a preventive headache treatment, it is anantihistamine that works to break the headache cycle. Please read thecyproheptadine information sheet for indications and side effects.Treating a breakthrough headache (rescue plan): Take Aleve, Ibuprofen orTylenol, over the counter dosing to relieve a bad headache. If needing more than3 doses a week, call to consider increasing preventive medication. Lay down heladio cool, dark quiet room, apply cold compress to forehead, chill, sleep.2. Vestibular dysfunction/convergence insufficiency/saccadicdefic iency/cervical strain: Physical Therapy is recommended for vestibularocular dysfunction and cervical strain.[place] PT site is recommended, you may choose from the list of phone numbers ofvestibular physical therapists in your area.Activity limitations: No contact sports or exercise. May begin with low levelexertion and increase as tolerated and physical therapy guides. Daily low levelrelaxing activity is recommended. Avoid tumbling, jumping, climbing, twirlingor swinging activities until cleared. 3. Cognitive treatment/schoolaccommodati ons: Full days of school as tolerated. Allow extra time to turn inassignments and tests, quiet room for testing. Consider open book/note testsuntil caught up. See letter to school for details.4. Mood treatment: Carefully monitor behavior and attention, calmly discussthe proper behavior in non-emotional way to re-train proper behavior.5. Sleep disturbance: It is crucial to have a good sleep routine, 8 - 11hours/night, limit napping, no interactive electronics before bed.Healthy Lifestyle Treatment: Schedule regulation/sleep/nutrition/ hydration:Be sure to establish a routine for sleeping, eating, hydrating and lightexercise should be at the same time daily, (see schedule regulation handout).Again be sure to get 8-9 hours of restful sleep at night (see sleep hygienehandout). Limit naps to 30 minutes or less. Plan to do something fun and safeupon awakening.Be sure to drink and eat throughout the day (see Concussion Tips Handout).Increase fluid intake to at least 80-100 ounces/day, at least half of fluidintake should be water.Make sure to use relaxation to lessen stress as much as possible. (See handout).No caffeine, artificial sweeteners or energy drinks.Do not skip any meals, add more protein to diet at each meal, eat frequently.[facility] a follow up visit in 4weeks.90 minute visit; > 50% of the [id number] visit time was dedicated tocounseling and coordination of medical care. I discussed the expected recoveryprocess for concussion with mom and patient. Risk factors and aggravatingfactors that complicate or slow recovery time were also explained to them. Irecommended headache preventive treatment and vestibular PT, will considercognitive memory therapy if continued problems when headaches and VOD haveresolved. She is to get adequate rest, good sleep, stress relief strategies,healthy nutrition, hydration, and information on how to promote healing andavoid aggravating factors were given to them. Treatment plan compliance, andthe need to modify activities and prevention strategies including headprotection were discussed. They voiced understanding and agreed with this planof care. Normal [facility] Basic Metabolic Panelon 01-17 Calcium 8.7 mg/dL Normal 7.6-11.0 [facility] Comment on above: Performed By: #### B MP ####[address] [phone] Chloride 108 mmol/L Normal 96-108 [facility] Comment on above: Performed By: #### B MP ####[address] [phone] CO2 21.6 mmol/L Low 22.0-29.0 [facility] Comment on above: Performed By: #### B MP ####[address] [phone] Creatinine 0.64 mg/dL Normal 0.50-0.80 [facility] Comment on above: Result Comment: Keaagn ature 0.3-1.0 mg/dL Performed By: #### B MP ####[address] [phone] Glucose mass conc 101 mg/dL High 70-99 [facility] Comment on above: Result Comment: Raymon reddy for Diagnosis of Diabetes(Effective 04/24/11):Fasting specimen (no caloric intake for at least 8 hours). <100 mg/dl Normal 100-125 mg/dl Increased Risk for Diabetes >125 mg/dl Diagnostic for DiabetesRandom Glucose (any time of day without regard to last meal). >=200 mg/dl plus Classic Symptoms of Diabetes Performed By: #### B MP ####[address] [phone] Potassium molar conc 3.7 mmol/L Normal 3.3-5.1 [facility] Comment on above: Performed By: #### B MP ####[address] [phone] Sodium 137 mmol/L Normal 133-145 [facility] Comment on above: Performed By: #### B MP ####[address] [phone] Urea nitrogen 13 mg/dL Normal 4-19 [facility] Comment on above: Performed By: #### B MP ####[address] [phone] ED Provider Progress Noteon 02-04-2018 Sports Director Authentication Interface Message Text Maricruz RobertOB: 2005Chief ComplaintPatient presents with HeadacheAllergiesAllergen Reactions Codemarcus EstradaDOS: 02/04/2018Patient is a 12 year old female with no significant past medical historypresenting with a headache for the last 5 days accompanied by intermittentphotophobia and nausea with no vomiting. Patient states that the headaches gotworse after she passed out and fell down approximately 12 steps. Mom states onyesterday patient was taken to OSH where CT scan of head was done and wasnegative. Mom also states at OSH patient had IV medication for the headachewhich partially relieved it but did not alleviate it and was noted to have BG of70 despite having eaten approximately 45 minutes earlier. Patient however noteshas been having headaches since spring that she manages at home withibuprofen, naproxen and acetaminophen with good results most of the time. Shereports she uses these medications multiple times each week. Headaches neverwake her up at night.The history is provided by the father and a grandparent. No language interpreterwas used.Review of SystemsConstitutional: Positive for activity change. Negative for appetite change andfever.HENT: Negative for ear discharge, ear pain, rhinorrhea and trouble swallowing.Eyes: Positive for photophobia. Negative for pain, discharge and itching.Respiratory: Negative for cough, shortness of breath, wheezing and stridor.Cardiovascular: Negative for chest pain and palpitations.Gastrointestin al: Negative for abdominal pain and diarrhea.Genitourinary: Negative for dysuria, frequency and urgency.Musculoskeletal: Negative for arthralgias, myalgias, neck pain and neckstiffness.Skin: Negative for color change, pallor and rash.Neurological: Positive for dizziness. Negative for weakness, light-headednessand numbness.History reviewed. No pertinent past medical history.History reviewed. No pertinent surgical history.Pediatric HistoryPatient Guardian Status Mother: TEJADARADHA Father: MARK TEJADA Topics Concern Not on fileSocial History Narrative No narrative on fileMother w history mgirainesED Triage VitalsDate and Time Temp Temp src Pulse Resp BP SpO2 Weight 02/04/18 1201 36.9 C (98.4 F) Temporal 85 18 (!) 143/73 -- 56.7 kg SMHPhysical ExamConstitutional: She is oriented to person, place, and time. Vital signs arenormal. She appears well-developed and well-nourished. No distress.HENT:Head: Normocephalic and atraumatic. Head is without raccoon's eyes, withoutBattle's sign and without contusion.Right Ear: Tympanic membrane and external ear normal.Left Ear: Tympanic membrane and external ear normal.Nose: Nose normal.Mouth/Throat: No oropharyngeal exudate.Eyes: EOM are normal. Pupils are equal, round, and reactive to light. Right eyeexhibits no discharge. Left eye exhibits no discharge.Neck: Normal range of motion. Neck supple. No neck rigidity. No trachealdeviation present.No cervical spine tendernessVertebrae with no tenderness to palpation and no step-offsCardiovascular: Normal rate and regular rhythm.No murmur heard.Pulmonary/Chest: Effort normal and breath sounds normal. No stridor. Norespiratory distress. She has no wheezes. She has no rales.Abdominal: Soft. She exhibits no distension and no mass. There is no tenderness.Musculoskeletal: Normal range of motion. She exhibits no edema or deformity.Lymphadenopathy: She has no cervical adenopathy.Neurological: She is alert and oriented to person, place, and time. She displaysnormal reflexes. No cranial nerve deficit or sensory deficit. Coordinationnormal.Skin: Skin is warm and dry. Capillary refill takes less than 2 seconds. Noecchymosis and no rash noted. She is not diaphoretic. No erythema. No pallor.Psychiatric: She has a normal mood and affect.ProceduresMDMNumber of Diagnoses or Management OptionsDiagnosis management comments: Patient presenting with headache with photophobiaworse after falling down steps. On exam patient with slightly elevated BPpatient treated with IVF, benadryl, toradol and Reglan with improvement ofheadache. Will discharge patient home to follow-up with neurology for concussionand migraine headaches follow-up.ED Course:Diagnosis' considered: concussion, ICH, concussionLabs/Radiology: none- head CT at outside hospital was normalConsults: No orders of the defined types were placed in this encounter.Medical Record/Transferring Institution Record:Treatment/Reassessme nt:Medical Decision Making as of Feb 0550Mon Feb 04, [id number] 12 yo w chronic headaches for 1 year, using naproxen prn, has not seenneurology. Fam hx migraines in mother. 3 days ago had episode syncope with falldown 12 steps. Seen yesterday and had worsening headache so was evalauted at [facility]where head CT was performed and normal. Today had headache as well as dizzinessat school so she was brought here for eval. On my exam pt is well appearing.AT/NC, PERRL, EOMI, CN 3-12 intact. Heart RRR and lungs clear. Normal caprefill. Given history possible syncope that caused fall 3 days ago, BMP and EKGwere obtained and were normal. IV placed and pt given NSB, reglan, benadryl andToradol after test negative. [DZ]1516 Pt had near resolution of headache. Likely migraine vs post-concussiveheadache. No sports due to possible concussion. FU w Neurology/headache clinic.DC home w ED return precautions discussed. [DZ]Medical Decision Making User Index[DZ] Christie Neville, MDDiagnosis to highest level of medical certainty/planMigraine headache- acetaminophen or ibuprofen at home- neurology for follow-upConcussion secondary to fall down steps- no sports till cleared by neurology- concussion precautions. I have discussed the history and findings with the resident and I havepersonally examined the child. The RN notes and medical records have beenreviewed by me. The differential diagnosis, management options, and the plan ofcare implemented have been discussed with the resident as well as the family. Iagree with the note above, as edited by myself in italics, with the followingadditions: See MDM.Christie Neville [facility] Normal [facility] eGFRon 02-04-2018 eGFR (non-black) see below Normal [facility] Comment on above: Result Comment: Refe rence range:> 3 months:>75 ml/min/1.73m^2Unable to calculate EGFR; height not available. Performed By: #### E GFR ####[facility] [place], [place] [phone] Large Joint Arthro/Inj: R poole bacromial bursa [facility] S. pyogenes Ag IF Ql (Throat ) S. pyogenes Ag IA Ql (Unsp spec) Streptococcus group B [facility] Work Phone: Vital Signs Date Time Vital Sign Value Performing Clinician Facility 07-07-2025 13:02-0400 Body height 157.5 cm Neto Mcarthur MD Work Phone: [facility] 07-07-2025 13:02-0400 Body mass index (BMI) [Ratio] 27.98 kg/m2 Neto Mcarthur MD Work Phone: [facility] 07-07-2025 13:02-0400 Body weight 69.4 kg Neto Mcarthur MD Work Phone: [facility] 07-07-2025 13:02-0400 Respiratory rate 16 /min Neto Mcarthur MD Work Phone: [facility] 07-03-2025 07:06-0400 Body mass index (BMI) [Ratio] 28.06 kg/m2 Annalisa Sakina FARM MANAGER.SENIOR ACCOUNT CLERK Work Phone: [facility] 07-03-2025 07:06-0400 Body weight 69.58 kg Annalisa Sakina FARM MANAGER.SENIOR ACCOUNT CLERK Work Phone: [facility] 07-03-2025 07:06-0400 Diastolic blood pressure 86 mm[Hg] Annalisa Sakina FARM MANAGER.SENIOR ACCOUNT CLERK Work Phone: [facility] 07-03-2025 07:06-0400 Heart rate 76 /min Annalisa Sakina FARM MANAGER.SENIOR ACCOUNT CLERK Work Phone: [facility] 07-03-2025 07:06-0400 Respiratory rate 16 /min Annalisa Sakina FARM MANAGER.SENIOR ACCOUNT CLERK Work Phone: [facility] 07-03-2025 07:06-0400 Systolic blood pressure 120 mm[Hg] Annalisa Sakina FARM MANAGER.SENIOR ACCOUNT CLERK Work Phone: [facility] 06-01-2025 14:00-0400 Body mass index (BMI) [Ratio] 28.35 kg/m2 Tina Power MD Work Phone: [facility] 06-01-2025 14:00-0400 Body weight 70.31 kg Tina Power MD Work Phone: [facility] 06-01-2025 14:00-0400 Diastolic blood pressure 80 mm[Hg] Tina Power MD Work Phone: [facility] 06-01-2025 14:00-0400 Systolic blood pressure 120 mm[Hg] Tina Power MD Work Phone: [facility] 05-28-2025 08:42-0400 Body mass index (BMI) [Ratio] 28.17 kg/m2 Jaqueline Cardona FARM MANAGER.SENIOR ACCOUNT CLERK Work Phone: [facility] 05-28-2025 08:42-0400 Body weight 69.85 kg Jaqueline Cardona APRN.SENIOR ACCOUNT CLERK Work Phone: [facility] 05-28-2025 08:42-0400 Diastolic blood pressure 89 mm[Hg] Jaqueline Cardona FARM MANAGER.SENIOR ACCOUNT CLERK Work Phone: [facility] 05-28-2025 08:42-0400 Heart rate 76 /min Jaqueline Cardona FARM MANAGER.SENIOR ACCOUNT CLERK Work Phone: [facility] 05-28-2025 08:42-0400 Systolic blood pressure 134 mm[Hg] Jaqueline Cardona FARM MANAGER.SENIOR ACCOUNT CLERK Work Phone: [facility] 05-27-2025 17:48-0400 Body mass index (BMI) [Ratio] 28.24 kg/m2 Annalisa Presley FARM MANAGER.SENIOR ACCOUNT CLERK Work Phone: [facility] 05-27-2025 17:48-0400 Body weight 70.03 kg Annalisa Presley FARM MANAGER.SENIOR ACCOUNT CLERK Work Phone: [facility] 05-27-2025 17:48-0400 Diastolic blood pressure 90 mm[Hg] Annalisa Sakina FARM MANAGER.SENIOR ACCOUNT CLERK Work Phone: [facility] 05-27-2025 17:48-0400 Heart rate 71 /min Annalisa Sakina FARM MANAGER.SENIOR ACCOUNT CLERK Work Phone: [facility] 05-27-2025 17:48-0400 Respiratory rate 12 /min Annalisa Sakina FARM MANAGER.SENIOR ACCOUNT CLERK Work Phone: [facility] 05-27-2025 17:48-0400 SaO2% (BldA) [Mass fraction] 99 % Annalisa Sakina FARM MANAGER.SENIOR ACCOUNT CLERK Work Phone: [facility] 05-27-2025 17:48-0400 Systolic blood pressure 128 mm[Hg] Annalisa Sakina FARM MANAGER.SENIOR ACCOUNT CLERK Work Phone: [facility] 05-19-2025 09:01-0400 Body height 157.5 cm Neto Mcarthur MD Work Phone: [facility] 05-19-2025 09:01-0400 Body mass index (BMI) [Ratio] 28.9 kg/m2 Neto Mcarthur MD Work Phone: [facility] 05-19-2025 09:01-0400 Body weight 71.67 kg Neto Mcarthur MD Work Phone: [facility] 05-19-2025 09:01-0400 Respiratory rate 16 /min Neto Mcarthur MD Work Phone: [facility] 05-15-2025 08:22-0400 Body mass index (BMI) [Ratio] 28.99 kg/m2 Hayley Clutter PA-C Work Phone: [facility] 05-15-2025 08:22-0400 Body temperature 97.11 [degF] Hayley Clutter PA-C Work Phone: [facility] 05-15-2025 08:22-0400 Body weight 71.9 kg Hayley Clutter PA-C Work Phone: [facility] 05-15-2025 08:22-0400 Diastolic blood pressure 90 mm[Hg] Hayley Clutter PA-C Work Phone: [facility] 05-15-2025 08:22-0400 Heart rate 69 /min Hayley Clutter PA-C Work Phone: [facility] 05-15-2025 08:22-0400 Respiratory rate 18 /min Hayley Clutter PA-C Work Phone: [facility] 05-15-2025 08:22-0400 SaO2% (BldA) [Mass fraction] 100 % Hayley Clutter PA-C Work Phone: [facility] 05-15-2025 08:22-0400 Systolic blood pressure 129 mm[Hg] Hayley Clutter PA-C Work Phone: [facility] 04-21-2025 11:28-0400 Body mass index (BMI) [Ratio] 28.72 kg/m2 Tayler Podlogar FARM MANAGER.SENIOR ACCOUNT CLERK Work Phone: [facility] 04-21-2025 11:28-0400 Body weight 71.22 kg Tayler Podlogar FARM MANAGER.SENIOR ACCOUNT CLERK Work Phone: [facility] 04-21-2025 11:28-0400 Diastolic blood pressure 80 mm[Hg] Tayler Podlogar FARM MANAGER.SENIOR ACCOUNT CLERK Work Phone: [facility] 04-21-2025 11:28-0400 Heart rate 87 /min Tayler Podlogar FARM MANAGER.SENIOR ACCOUNT CLERK Work Phone: [facility] 04-21-2025 11:28-0400 Respiratory rate 18 /min Tayler Podlogar FARM MANAGER.SENIOR ACCOUNT CLERK Work Phone: [facility] 04-21-2025 11:28-0400 SaO2% (BldA) [Mass fraction] 98 % Tayler Podlogar FARM MANAGER.SENIOR ACCOUNT CLERK Work Phone: [facility] [facility] 04[facility]21-2025 11:28-0400 Systolic blood pressure 122 mm[Hg] Tayler Podlogar FARM MANAGER.SENIOR ACCOUNT CLERK Work Phone: [facility] 04-16-2025 14:23-0400 Body mass index (BMI) [Ratio] 28.2 kg/m2 Little Cheng FARM MANAGER.SENIOR ACCOUNT CLERK Work Phone: [facility] 04-16-2025 14:23-0400 Body weight 69.94 kg Little Cheng FARM MANAGER.SENIOR ACCOUNT CLERK Work Phone: [facility] 04-16-2025 14:23-0400 Diastolic blood pressure 82 mm[Hg] Little Cheng FARM MANAGER.SENIOR ACCOUNT CLERK Work Phone: [facility] 04-16-2025 14:23-0400 Heart rate 84 /min Little Cheng FARM MANAGER.SENIOR ACCOUNT CLERK Work Phone: [facility] 04-16-2025 14:23-0400 Respiratory rate 16 /min Little Cheng FARM MANAGER.SENIOR ACCOUNT CLERK Work Phone: [facility] 04-16-2025 14:23-0400 Systolic blood pressure 118 mm[Hg] Little Cheng FARM MANAGER.SENIOR ACCOUNT CLERK Work Phone: [facility] 04-14-2025 13:14-0400 Body height 157.5 cm Neto Mcarthur MD Work Phone: [facility] 04-14-2025 13:14-0400 Body mass index (BMI) [Ratio] 28.72 kg/m2 Neto Mcarthur MD Work Phone: [facility] 04-14-2025 13:14-0400 Body weight 71.22 kg Neto Mcarthur MD Work Phone: [facility] 04-14-2025 13:14-0400 Respiratory rate 18 /min Neto Mcarthur MD Work Phone: [facility] 04-06-2025 10:00-0400 Diastolic blood pressure 80 mm[Hg] Luis Enrique Sears PT Work Phone: [facility] 04-06-2025 10:00-0400 Heart rate 99 /min Luis Enriquejosephine Sears PT Work Phone: [facility] 04-06-2025 10:00-0400 SaO2% (BldA) [Mass fraction] 98 % Luis Enrique Sears PT Work Phone: [facility] 04-06-2025 10:00-0400 Systolic blood pressure 106 mm[Hg] Luis Enrique Cumminsy PT Work Phone: [facility] 04-01-2025 12:40-0400 Body mass index (BMI) [Ratio] 29.15 kg/m2 Annalisa Sakina FARM MANAGER.SENIOR ACCOUNT CLERK Work Phone: [facility] 04-01-2025 12:40-0400 Body weight 72.3 kg Annalisa Sakina FARM MANAGER.SENIOR ACCOUNT CLERK Work Phone: [facility] 04-01-2025 12:40-0400 Diastolic blood pressure 78 mm[Hg] Annalisa Sakina FARM MANAGER.SENIOR ACCOUNT CLERK Work Phone: [facility] 04-01-2025 12:40-0400 Heart rate 78 /min Annalisa Sakina FARM MANAGER.SENIOR ACCOUNT CLERK Work Phone: [facility] 04-01-2025 12:40-0400 SaO2% (BldA) [Mass fraction] 99 % Annalisa Sakina FARM MANAGER.SENIOR ACCOUNT CLERK Work Phone: [facility] 04-01-2025 12:40-0400 Systolic blood pressure 124 mm[Hg] Annalisa Sakina FARM MANAGER.SENIOR ACCOUNT CLERK Work Phone: [facility] 04-01-2025 09:25-0400 Body height 157.5 cm Hilario Killian MD Work Phone: [facility] 04-01-2025 09:25-0400 Body mass index (BMI) [Ratio] 28.63 kg/m2 Hilario Killian MD Work Phone: [facility] 04-01-2025 09:25-0400 Body weight 71 kg Hilario Killian MD Work Phone: [facility] 04-01-2025 09:25-0400 Diastolic blood pressure 88 mm[Hg] Hilario Killian MD Work Phone: [facility] 04-01-2025 09:25-0400 Heart rate 82 /min Hilario Killian MD Work Phone: [facility] 04-01-2025 09:25-0400 SaO2% (BldA) [Mass fraction] 98 % Hilario Killian MD Work Phone: [facility] 04-01-2025 09:25-0400 Systolic blood pressure 124 mm[Hg] Hilario Killian MD Work Phone: [facility] 03-30-2025 13:59-0400 Body height 157.5 cm [facility] 2 [facility] 03-30-2025 13:59-0400 Body mass index (BMI) [Ratio] 28.72 kg/m2 [facility] 2 [facility] 03-30-2025 13:59-0400 Body temperature 98.1 [degF] [facility] [address] [facility] 03-30-2025 13:59-0400 Body weight 71.22 kg [facility] 2 [facility] 03-30-2025 13:59-0400 Diastolic blood pressure 84 mm[Hg] [facility] 2 [facility] 03-30-2025 13:59-0400 Heart rate 76 /min [facility] 2 [facility] 03-30-2025 13:59-0400 Respiratory rate 16 /min [facility] [address] [facility] 03-30-2025 13:59-0400 SaO2% (BldA) [Mass fraction] 99 % [facility] 2 [facility] 03-30-2025 13:59-0400 Systolic blood pressure 129 mm[Hg] [facility] 2 [facility] 03-03-2025 11:07-0400 Body height 157.5 cm Raya Taveras APRN.CNM Work Phone: [facility] 03-03-2025 11:07-0400 Body mass index (BMI) [Ratio] 27.44 kg/m2 Raya Taveras APRN.CNM Work Phone: [facility] 03-03-2025 11:07-0400 Body weight 68.04 kg Raya Taveras APRN.CNM Work Phone: [facility] 03-03-2025 11:07-0400 Diastolic blood pressure 60 mm[Hg] Raya Taveras FARM MANAGER.CNM Work Phone: [facility] 03-03-2025 11:07-0400 Systolic blood pressure 110 mm[Hg] Raya Taveras FARM MANAGER.CNM Work Phone: [facility] 02-16-2025 13:38-0400 Body height 160 cm Neto Mcarthur MD Work Phone: [facility] 02-16-2025 13:38-0400 Body mass index (BMI) [Ratio] 27.81 kg/m2 Neto Mcarthur MD Work Phone: [facility] 02-16-2025 13:38-0400 Body weight 71.22 kg Neto Mcarthur MD Work Phone: [facility] 02-16-2025 13:38-0400 Respiratory rate 16 /min Neto Mcarthur MD Work Phone: [facility] 02-13-2025 13:11-0400 Body mass index (BMI) [Ratio] 27.81 kg/m2 Jaqueline Cardona FARM MANAGER.SENIOR ACCOUNT CLERK Work Phone: [facility] 02-13-2025 13:11-0400 Body weight 71.22 kg Jaqueline Cardona FARM MANAGER.SENIOR ACCOUNT CLERK Work Phone: [facility] 02-13-2025 13:11-0400 Diastolic blood pressure 85 mm[Hg] Jaqueline Cardona FARM MANAGER.SENIOR ACCOUNT CLERK Work Phone: [facility] 02-13-2025 13:11-0400 Heart rate 91 /min Jaqueline Cardona FARM MANAGER.SENIOR ACCOUNT CLERK Work Phone: [facility] 02-13-2025 13:11-0400 Systolic blood pressure 128 mm[Hg] Jaqueline Cardona FARM MANAGERAdileneSENIOR ACCOUNT CLERK Work Phone: [facility] 01-29-2025 08:47-0400 Body mass index (BMI) [Ratio] 27.34 kg/m2 Kelsi Bermudez FARM MANAGER.SENIOR ACCOUNT CLERK Work Phone: [facility] 01-29-2025 08:47-0400 Body weight 70 kg Kelsi Capellanman FARM MANAGER.SENIOR ACCOUNT CLERK Work Phone: [facility] 01-29-2025 08:47-0400 Diastolic blood pressure 82 mm[Hg] Kelsi Capellanman FARM MANAGER.SENIOR ACCOUNT CLERK Work Phone: [facility] 01-29-2025 08:47-0400 Heart rate 76 /min Kelsi Capellanman FARM MANAGER.SENIOR ACCOUNT CLERK Work Phone: [facility] 01-29-2025 08:47-0400 SaO2% (BldA) [Mass fraction] 100 % Kelsievon Capellanman FARM MANAGER.SENIOR ACCOUNT CLERK Work Phone: [facility] 01-29-2025 08:47-0400 Systolic blood pressure 118 mm[Hg] Kelsi Capellanman FARM MANAGER.SENIOR ACCOUNT CLERK Work Phone: [facility] 01-22-2025 12:52-0500 Body mass index (BMI) [Ratio] 26.95 kg/m2 [facility] F[facility] MANAGER.SENIOR ACCOUNT CLERK Work Phone: [facility] 01-22-2025 12:52-0500 Body temperature 98.29 [degF] [facility] FARM MANAGER.SENIOR ACCOUNT CLERK Work Phone: [facility] 01-22-2025 12:52-0500 Body weight 69 kg Vin Cynthiaspeedy FARM MANAGER.SENIOR ACCOUNT CLERK Work Phone: [facility] 01-22-2025 12:52-0500 Diastolic blood pressure 80 mm[Hg] [facility] FARM MANAGER.SENIOR ACCOUNT CLERK Work Phone: [facility] 01-22-2025 12:52-0500 Heart rate 109 /min Vin [facility] FARM MANAGER.SENIOR ACCOUNT CLERK Work Phone: [facility] 01-22-2025 12:52-0500 Respiratory rate 22 /min Vin [facility] FARM MANAGER.SENIOR ACCOUNT CLERK Work Phone: [facility] 01-22-2025 12:52-0500 SaO2% (BldA) [Mass fraction] 100 % Vin [place] FARM MANAGER.SENIOR ACCOUNT CLERK Work Phone: [facility] 01-22-2025 12:52-0500 Systolic blood pressure 122 mm[Hg] Vin Canada FARM MANAGER.SENIOR ACCOUNT CLERK Work Phone: [facility] 01-15-2025 08:21-0500 Body mass index (BMI) [Ratio] 27.63 kg/m2 Kelsi Lara FARM MANAGER.SENIOR ACCOUNT CLERK Work Phone: [facility] 01-15-2025 08:21-0500 Body weight 70.76 kg Kelsi Lara FARM MANAGER.SENIOR ACCOUNT CLERK Work Phone: [facility] 01-15-2025 08:21-0500 Diastolic blood pressure 90 mm[Hg] Kelsi Capellanman FARM MANAGER.SENIOR ACCOUNT CLERK Work Phone: [facility] 01-15-2025 08:21-0500 Heart rate 96 /min Kelsi Bermudez FARM MANAGER.SENIOR ACCOUNT CLERK Work Phone: [facility] 01-15-2025 08:21-0500 Systolic blood pressure 148 mm[Hg] Kelsi Lara FARM MANAGER.SENIOR ACCOUNT CLERK Work Phone: [facility] 01-05-2025 13:26-0500 Body mass index (BMI) [Ratio] 27.28 kg/m2 Raya Taveras FARM MANAGER.CNM Work Phone: [facility] 01-05-2025 13:26-0500 Body weight 69.85 kg Raya Taveras FARM MANAGER.CNM Work Phone: [facility] 01-05-2025 13:26-0500 Diastolic blood pressure 72 mm[Hg] Raya Taveras FARM MANAGER.CNM Work Phone: [facility] 01-05-2025 13:26-0500 Systolic blood pressure 128 mm[Hg] Raya Taveras FARM MANAGER.CNM Work Phone: [facility] 12-26-2024 09:05-0500 Body mass index (BMI) [Ratio] 26.75 kg/m2 Kelsievon Capellanman FARM MANAGER.SENIOR ACCOUNT CLERK Work Phone: [facility] 12-26-2024 09:05-0500 Body weight 68.49 kg Kelsi Bermudez FARM MANAGER.SENIOR ACCOUNT CLERK Work Phone: [facility] 12-26-2024 09:05-0500 Diastolic blood pressure 96 mm[Hg] Kelsi Capellanman FARM MANAGER.SENIOR ACCOUNT CLERK Work Phone: [facility] 12-26-2024 09:05-0500 Heart rate 91 /min Kelsievon Capellanman FARM MANAGER.SENIOR ACCOUNT CLERK Work Phone: [facility] 12-26-2024 09:05-0500 SaO2% (BldA) [Mass fraction] 98 % Kelsi Bermudez FARM MANAGER.SENIOR ACCOUNT CLERK Work Phone: [facility] 12-26-2024 09:05-0500 Systolic blood pressure 142 mm[Hg] Klesi Bermudez FARM MANAGER.SENIOR ACCOUNT CLERK Work Phone: [facility] 12-22-2024 08:37-0500 Body height 160 cm Neto Mcarthur MD Work Phone: [facility] 12-22-2024 08:37-0500 Body mass index (BMI) [Ratio] 27.28 kg/m2 Neto Mcarthur MD Work Phone: [facility] 12-22-2024 08:37-0500 Body weight 69.85 kg Neto Mcarthur MD Work Phone: [facility] 12-22-2024 08:37-0500 Respiratory rate 18 /min Neto Mcarthur MD Work Phone: [facility] 12-17-2024 13:49-0500 Body mass index (BMI) [Ratio] 27.28 kg/m2 Raya Taveras FARM MANAGER.CNM Work Phone: [facility] 12-17-2024 13:49-0500 Body weight 69.85 kg Raya Taveras FARM MANAGER.CNM Work Phone: [facility] 12-17-2024 13:49-0500 Diastolic blood pressure 90 mm[Hg] Raya Taveras FARM MANAGER.CNM Work Phone: [facility] 12-17-2024 13:49-0500 Systolic blood pressure 144 mm[Hg] Raya Taveras FARM MANAGER.CNM Work Phone: [facility] 11-25-2024 09:56-0500 Body mass index (BMI) [Ratio] 26.75 kg/m2 Kelsi Lara FARM MANAGER.SENIOR ACCOUNT CLERK Work Phone: [facility] 11-25-2024 09:56-0500 Body weight 68.49 kg Kelsi Lara FARM MANAGER.SENIOR ACCOUNT CLERK Work Phone: [facility] 11-25-2024 09:56-0500 Diastolic blood pressure 96 mm[Hg] Kelsi Lara FARM MANAGER.SENIOR ACCOUNT CLERK Work Phone: [facility] 11-25-2024 09:56-0500 Heart rate 83 /min Kelsi Lara FARM MANAGER.SENIOR ACCOUNT CLERK Work Phone: [facility] 11-25-2024 09:56-0500 Respiratory rate 16 /min Kelsi Lara FARM MANAGER.SENIOR ACCOUNT CLERK Work Phone: [facility] 11-25-2024 09:56-0500 SaO2% (BldA) [Mass fraction] 99 % Kelsi Lara FARM MANAGER.SENIOR ACCOUNT CLERK Work Phone: [facility] 11-25-2024 09:56-0500 Systolic blood pressure 142 mm[Hg] Kelsi Lara FARM MANAGER.SENIOR ACCOUNT CLERK Work Phone: [facility] 10-21-2024 10:15-0500 Diastolic blood pressure 97 mm[Hg] Kelsi Lara FARM MANAGER.SENIOR ACCOUNT CLERK Work Phone: [facility] Comment on above: bp booker 10-21-2024 10:15-0500 Heart rate 117 /min Kelsi Lara FARM MANAGER.SENIOR ACCOUNT CLERK Work Phone: [facility] Comment on above: BP booker pulse 10-21-2024 10:15-0500 Systolic blood pressure 146 mm[Hg] Kelsi Lara FARM MANAGER.SENIOR ACCOUNT CLERK Work Phone: [facility] Comment on above: bp booker 10-21-2024 10:00-0500 Body mass index (BMI) [Ratio] 26.52 kg/m2 Kelsi Lara FARM MANAGER.SENIOR ACCOUNT CLERK Work Phone: [facility] 10-21-2024 10:00-0500 Body weight 67.9 kg Kelsi Lara FARM MANAGER.SENIOR ACCOUNT CLERK Work Phone: [facility] 10-21-2024 10:00-0500 Respiratory rate 16 /min Kelsi Lara FARM MANAGER.SENIOR ACCOUNT CLERK Work Phone: [facility] 10-21-2024 10:00-0500 SaO2% (BldA) [Mass fraction] 100 % Kelsi Lara FARM MANAGER.SENIOR ACCOUNT CLERK Work Phone: [facility] 07-15-2024 08:32-0400 Body mass index (BMI) [Ratio] 26.11 kg/m2 Kelsi Lara FARM MANAGER.SENIOR ACCOUNT CLERK Work Phone: [facility] 07-15-2024 08:32-0400 Body weight 66.86 kg Kelsi Lara FARM MANAGER.SENIOR ACCOUNT CLERK Work Phone: [facility] 07-15-2024 08:32-0400 Diastolic blood pressure 86 mm[Hg] Kelsi Lara FARM MANAGER.SENIOR ACCOUNT CLERK Work Phone: [facility] 07-15-2024 08:32-0400 Heart rate 71 /min Kelsi Lara FARM MANAGER.SENIOR ACCOUNT CLERK Work Phone: [facility] 07-15-2024 08:32-0400 SaO2% (BldA) [Mass fraction] 98 % Kelsi Lara FARM MANAGER.SENIOR ACCOUNT CLERK Work Phone: [facility] 07-15-2024 08:32-0400 Systolic blood pressure 116 mm[Hg] Kelsi Lara FARM MANAGER.SENIOR ACCOUNT CLERK Work Phone: [facility] 06-18-2024 09:07-0400 Diastolic blood pressure 95 mm[Hg] Little Cheng FARM MANAGER.SENIOR ACCOUNT CLERK Work Phone: [facility] Comment on above: B/P TRUE 06-18-2024 09:07-0400 Heart rate 93 /min Little Cheng FARM MANAGER.SENIOR ACCOUNT CLERK Work Phone: [facility] 06-18-2024 09:07-0400 Systolic blood pressure 134 mm[Hg] Little Cheng FARM MANAGER.SENIOR ACCOUNT CLERK Work Phone: [facility] Comment on above: B/P TRUE 06-18-2024 08:22-0400 Body mass index (BMI) [Ratio] 26.29 kg/m2 Little Cheng FARM MANAGER.SENIOR ACCOUNT CLERK Work Phone: [facility] 06-18-2024 08:22-0400 Body temperature 99.1 [degF] Little Cheng FARM MANAGER.SENIOR ACCOUNT CLERK Work Phone: [facility] 06-18-2024 08:22-0400 Body weight 67.31 kg Littlelizeth Cheng FARM MANAGER.SENIOR ACCOUNT CLERK Work Phone: [facility] 06-18-2024 08:22-0400 SaO2% (BldA) [Mass fraction] 100 % Little Cheng FARM MANAGER.SENIOR ACCOUNT CLERK Work Phone: [facility] 06-16-2024 11:17-0400 Body mass index (BMI) [Ratio] 26.24 kg/m2 Rosalia Guy APRN.SENIOR ACCOUNT CLERK Work Phone: [facility] 06-16-2024 11:17-0400 Body temperature 97.81 [degF] Rosalia Guy APRN.SENIOR ACCOUNT CLERK Work Phone: [facility] 06-16-2024 11:17-0400 Body weight 67.2 kg Rosalia Guy APRN.SENIOR ACCOUNT CLERK Work Phone: [facility] 06-16-2024 11:17-0400 Diastolic blood pressure 70 mm[Hg] Rosalia Guy APRN.SENIOR ACCOUNT CLERK Work Phone: [facility] 06-16-2024 11:17-0400 Heart rate 108 /min Rosalia Guy FARM MANAGER.SENIOR ACCOUNT CLERK Work Phone: [facility] 06-16-2024 11:17-0400 Respiratory rate 16 /min Rosalia Guy APRN.SENIOR ACCOUNT CLERK Work Phone: [facility] 06-16-2024 11:17-0400 SaO2% (BldA) [Mass fraction] 99 % Rosalia Guy FARM MANAGER.SENIOR ACCOUNT CLERK Work Phone: [facility] 06-16-2024 11:17-0400 Systolic blood pressure 122 mm[Hg] Rosalia Guy FARM MANAGER.SENIOR ACCOUNT CLERK Work Phone: [facility] 05-06-2024 07:56-0400 Body mass index (BMI) [Ratio] 25.65 kg/m2 Emely Emporia FARM MANAGER.SENIOR ACCOUNT CLERK Work Phone: [facility] 05-06-2024 07:56-0400 Body weight 65.68 kg Emely Rozina FARM MANAGER.SENIOR ACCOUNT CLERK Work Phone: [facility] 05-06-2024 07:56-0400 Diastolic blood pressure 100 mm[Hg] Emely Emporia FARM MANAGER.SENIOR ACCOUNT CLERK Work Phone: [facility] 05-06-2024 07:56-0400 Systolic blood pressure 140 mm[Hg] Emely Emporia FARM MANAGER.SENIOR ACCOUNT CLERK Work Phone: [facility] 04-11-2024 08:14-0400 Body mass index (BMI) [Ratio] 26.18 kg/m2 Little Cheng FARM MANAGER.SENIOR ACCOUNT CLERK Work Phone: [facility] 04-11-2024 08:14-0400 Body temperature 99 [degF] Little Cheng FARM MANAGER.SENIOR ACCOUNT CLERK Work Phone: [facility] 04-11-2024 08:14-0400 Body weight 67.04 kg Little Cheng FARM MANAGER.SENIOR ACCOUNT CLERK Work Phone: [facility] 04-11-2024 08:14-0400 Diastolic blood pressure 68 mm[Hg] Little Cheng FARM MANAGER.SENIOR ACCOUNT CLERK Work Phone: [facility] 04-11-2024 08:14-0400 Heart rate 107 /min Little Cheng FARM MANAGER.SENIOR ACCOUNT CLERK Work Phone: [facility] 04-11-2024 08:14-0400 Respiratory rate 14 /min Little Cheng FARM MANAGER.SENIOR ACCOUNT CLERK Work Phone: [facility] 04-11-2024 08:14-0400 SaO2% (BldA) [Mass fraction] 98 % Little Cheng FARM MANAGER.SENIOR ACCOUNT CLERK Work Phone: [facility] 04-11-2024 08:14-0400 Systolic blood pressure 132 mm[Hg] Little Cheng FARM MANAGER.SENIOR ACCOUNT CLERK Work Phone: [facility] 03-31-2024 12:52-0400 Body mass index (BMI) [Ratio] 27.02 kg/m2 Kuldeep Tijerina FARM MANAGER.SENIOR ACCOUNT CLERK Work Phone: [facility] 03-31-2024 12:52-0400 Body temperature 98.8 [degF] Kuldeep Tijerina FARM MANAGER.SENIOR ACCOUNT CLERK Work Phone: [facility] 03-31-2024 12:52-0400 Body weight 69.2 kg Kuldeep Tijerina FARM MANAGER.SENIOR ACCOUNT CLERK Work Phone: [facility] 03-31-2024 12:52-0400 Diastolic blood pressure 84 mm[Hg] Kuldeep Tijerina FARM MANAGER.SENIOR ACCOUNT CLERK Work Phone: [facility] 03-31-2024 12:52-0400 Heart rate 77 /min Kuldeep Tijerina FARM MANAGER.SENIOR ACCOUNT CLERK Work Phone: [facility] 03-31-2024 12:52-0400 Respiratory rate 18 /min Kuldeep Tijerina FARM MANAGER.SENIOR ACCOUNT CLERK Work Phone: [facility] 03-31-2024 12:52-0400 SaO2% (BldA) [Mass fraction] 100 % Kuldeep Tijerina FARM MANAGER.SENIOR ACCOUNT CLERK Work Phone: [facility] 03-31-2024 12:52-0400 Systolic blood pressure 146 mm[Hg] Kuldeep Breezy FARM MANAGER.SENIOR ACCOUNT CLERK Work Phone: [facility] 01-26-2024 14:55-0500 Body temperature 98.4 [degF] Mary Praisler-Wood FARM MANAGER.SENIOR ACCOUNT CLERK Work Phone: [facility] 01-26-2024 14:55-0500 Body weight 70.5 kg Mary Praisler-Wood FARM MANAGER.SENIOR ACCOUNT CLERK Work Phone: [facility] 01-26-2024 14:55-0500 Diastolic blood pressure 90 mm[Hg] Mary Praisler-Wood FARM MANAGER.SENIOR ACCOUNT CLERK Work Phone: [facility] 01-26-2024 14:55-0500 Heart rate 86 /min Mary Praisler-Wood FARM MANAGER.SENIOR ACCOUNT CLERK Work Phone: [facility] 01-26-2024 14:55-0500 Respiratory rate 16 /min Mary Praisler-Wood FARM MANAGER.SENIOR ACCOUNT CLERK Work Phone: [facility] 01-26-2024 14:55-0500 SaO2% (BldA) [Mass fraction] 96 % Mary Praisler-Wood FARM MANAGER.SENIOR ACCOUNT CLERK Work Phone: [facility] 01-26-2024 14:55-0500 Systolic blood pressure 142 mm[Hg] Mary Praisler-Wood FARM MANAGER.SENIOR ACCOUNT CLERK Work Phone: [facility] 10-04-2023 13:01-0500 Diastolic blood pressure 96 mm[Hg] Kelsi Lara FARM MANAGER.SENIOR ACCOUNT CLERK Work Phone: [facility] 10-04-2023 13:01-0500 Systolic blood pressure 136 mm[Hg] Kelsi Lara FARM MANAGER.SENIOR ACCOUNT CLERK Work Phone: [facility] 10-04-2023 11:17-0500 Body weight 72.94 kg Kelsi Lara FARM MANAGER.SENIOR ACCOUNT CLERK Work Phone: [facility] 10-04-2023 11:17-0500 Heart rate 95 /min Kelsi Lara FARM MANAGER.SENIOR ACCOUNT CLERK Work Phone: [facility] 10-04-2023 11:17-0500 Respiratory rate 16 /min Kelsi Bermudez FARM MANAGER.SENIOR ACCOUNT CLERK Work Phone: [facility] 10-04-2023 11:17-0500 SaO2% (BldA) [Mass fraction] 98 % Kelsi Bermudez FARM MANAGER.SENIOR ACCOUNT CLERK Work Phone: [facility] 09-18-2023 09:14-0400 Body temperature 98.01 [degF] Vin Pendlebury FARM MANAGER.SENIOR ACCOUNT CLERK Work Phone: [facility] 09-18-2023 09:14-0400 Body weight 75.03 kg Vin Georgespeedy FARM MANAGER.SENIOR ACCOUNT CLERK Work Phone: [facility] 09-18-2023 09:14-0400 Diastolic blood pressure 88 mm[Hg] Vin Pendlebury FARM MANAGER.SENIOR ACCOUNT CLERK Work Phone: [facility] 09-18-2023 09:14-0400 Heart rate 104 /min Vin Pendlebury FARM MANAGER.SENIOR ACCOUNT CLERK Work Phone: [facility] 09-18-2023 09:14-0400 Respiratory rate 16 /min Vin Pendlebury FARM MANAGER.SENIOR ACCOUNT CLERK Work Phone: [facility] 09-18-2023 09:14-0400 SaO2% (BldA) [Mass fraction] 98 % Vin Pendlebury FARM MANAGER.SENIOR ACCOUNT CLERK Work Phone: [facility] 09-18-2023 09:14-0400 Systolic blood pressure 148 mm[Hg] Vin Pendlebury FARM MANAGER.SENIOR ACCOUNT CLERK Work Phone: [facility] 09-14-2023 11:41-0400 Body weight 73.48 kg Daisy Zarate FARM MANAGER.SENIOR ACCOUNT CLERK Work Phone: [facility] 09-14-2023 11:41-0400 Diastolic blood pressure 98 mm[Hg] Daisy Zarate FARM MANAGER.SENIOR ACCOUNT CLERK Work Phone: [facility] 09-14-2023 11:41-0400 Systolic blood pressure 146 mm[Hg] Daisy Zarate FARM MANAGER.SENIOR ACCOUNT CLERK Work Phone: [facility] 09-12-2023 17:48-0400 Body temperature 97.2 [degF] Nohemi Athy PA-C Work Phone: [facility] 09-12-2023 17:48-0400 Body weight 74.66 kg Nohemi Athy PA-C Work Phone: [facility] 09-12-2023 17:48-0400 Diastolic blood pressure 105 mm[Hg] Nohemi Athy PA-C Work Phone: [facility] 09-12-2023 17:48-0400 Heart rate 100 /min Nohemi Athy PA-C Work Phone: [facility] 09-12-2023 17:48-0400 Respiratory rate 18 /min Nohemi Athy PA-C Work Phone: [facility] 09-12-2023 17:48-0400 SaO2% (BldA) [Mass fraction] 100 % Nohemi Athy PA-C Work Phone: [facility] 09-12-2023 17:48-0400 Systolic blood pressure 164 mm[Hg] Nohemi Athy PA-C Work Phone: [facility] 07-31-2023 10:56-0400 Body weight 74.12 kg Emely Rozina FARM MANAGER.SENIOR ACCOUNT CLERK Work Phone: [facility] 07-31-2023 10:56-0400 Diastolic blood pressure 78 mm[Hg] Emely Rozina FARM MANAGER.SENIOR ACCOUNT CLERK Work Phone: [facility] 07-31-2023 10:56-0400 Systolic blood pressure 122 mm[Hg] Emely Emporia FARM MANAGER.SENIOR ACCOUNT CLERK Work Phone: [facility] 04-25-2023 15:00-0400 Body temperature 97.7 [degF] Celso Freire DO Work Phone: [facility] 04-25-2023 15:00-0400 Body weight 72.58 kg Celso Freire DO Work Phone: [facility] 04-25-2023 15:00-0400 Diastolic blood pressure 96 mm[Hg] Celso Freire DO Work Phone: [facility] 04-25-2023 15:00-0400 Heart rate 116 /min Celso Freire DO Work Phone: [facility] 04-25-2023 15:00-0400 Respiratory rate 12 /min Celso Freire DO Work Phone: [facility] 04-25-2023 15:00-0400 Systolic blood pressure 140 mm[Hg] Celso Freire DO Work Phone: [facility] 03-28-2023 11:25-0400 Body weight 71.22 kg Kathy Older FARM MANAGER.SENIOR ACCOUNT CLERK Work Phone: [facility] 03-28-2023 11:25-0400 Diastolic blood pressure 90 mm[Hg] Kathy Older FARM MANAGER.SENIOR ACCOUNT CLERK Work Phone: [facility] 03-28-2023 11:25-0400 Heart rate 89 /min Kathy Older FARM MANAGER.SENIOR ACCOUNT CLERK Work Phone: [facility] 03-28-2023 11:25-0400 Respiratory rate 18 /min Kathy Older FARM MANAGER.SENIOR ACCOUNT CLERK Work Phone: [facility] 03-28-2023 11:25-0400 Systolic blood pressure 137 mm[Hg] Kathy Older FARM MANAGER.SENIOR ACCOUNT CLERK Work Phone: [facility] 03-21-2023 17:52-0400 Diastolic Blood Pressure Non-Invasive 84 1 DIDI LOWERY MD [facility] 03-21-2023 17:52-0400 Heart rate 88 /min DIDI LOWERY MD [facility] 03-21-2023 17:52-0400 Respiratory rate 16 /min DIDI LOWERY MD [facility] 03-21-2023 17:52-0400 Systolic Blood Pressure Non-Invasive 151 1 DIDI LOWERY MD [facility] 03-21-2023 17:12-0400 Diastolic Blood Pressure Non-Invasive 88 1 DIDI LOWERY MD [facility] 03-21-2023 17:12-0400 Heart rate 98 /min DIDI LOWERY MD [facility] 03-21-2023 17:12-0400 Systolic Blood Pressure Non-Invasive 151 1 DIDI LOWERY MD [facility] 03-21-2023 15:39-0400 Body temperature 98.42 [degF] DIDI LOWERY MD [facility] 03-21-2023 15:39-0400 Body weight 72.8 kg DIDI LOWERY MD [facility] 03-21-2023 15:39-0400 Diastolic Blood Pressure Non-Invasive 108 1 DIDI LOWERY MD [facility] 03-21-2023 15:39-0400 Heart rate 88 /min DIDI LOWERY MD [facility] 03-21-2023 15:39-0400 Respiratory rate 20 /min DIDI LOWERY MD [facility] 03-21-2023 15:39-0400 Systolic Blood Pressure Non-Invasive 154 1 DIDI LOWERY MD [facility] 11-06-2022 09:33-0500 Body weight 71.31 kg Kelsi Lara FARM MANAGER.SENIOR ACCOUNT CLERK Work Phone: [facility] 11-06-2022 09:33-0500 Diastolic blood pressure 82 mm[Hg] Kelsi Lara FARM MANAGER.SENIOR ACCOUNT CLERK Work Phone: [facility] 11-06-2022 09:33-0500 Heart rate 80 /min Kelsi Lara FARM MANAGER.SENIOR ACCOUNT CLERK Work Phone: [facility] 11-06-2022 09:33-0500 Respiratory rate 16 /min Kelsi Lara FARM MANAGER.SENIOR ACCOUNT CLERK Work Phone: [facility] 11-06-2022 09:33-0500 SaO2% (BldA) [Mass fraction] 100 % Kelsi Lara FARM MANAGER.SENIOR ACCOUNT CLERK Work Phone: [facility] 11-06-2022 09:33-0500 Systolic blood pressure 118 mm[Hg] Kelsi Lara FARM MANAGER.SENIOR ACCOUNT CLERK Work Phone: [facility] 10-10-2022 14:07-0500 Body weight 70.03 kg Emely Emporia FARM MANAGER.SENIOR ACCOUNT CLERK Work Phone: [facility] 10-10-2022 14:07-0500 Diastolic blood pressure 80 mm[Hg] Emely Rozina FARM MANAGER.SENIOR ACCOUNT CLERK Work Phone: [facility] 10-10-2022 14:07-0500 Systolic blood pressure 122 mm[Hg] Emely Emporia FARM MANAGER.SENIOR ACCOUNT CLERK Work Phone: [facility] 10-09-2022 09:17-0500 Body weight 69.4 kg Kelsi Lara FARM MANAGER.SENIOR ACCOUNT CLERK Work Phone: [facility] 10-09-2022 09:17-0500 Diastolic blood pressure 88 mm[Hg] Kelsi Lara FARM MANAGER.SENIOR ACCOUNT CLERK Work Phone: [facility] 10-09-2022 09:17-0500 Heart rate 80 /min Kelsi Lara FARM MANAGER.SENIOR ACCOUNT CLERK Work Phone: [facility] 10-09-2022 09:17-0500 Respiratory rate 16 /min Kelsi Lara FARM MANAGER.SENIOR ACCOUNT CLERK Work Phone: [facility] 10-09-2022 09:17-0500 Systolic blood pressure 118 mm[Hg] Kelsi Lara FARM MANAGER.SENIOR ACCOUNT CLERK Work Phone: [facility] 09-28-2022 11:04-0500 Body height 160 cm Liv Knapp MD Work Phone: [facility] 09-28-2022 11:04-0500 Diastolic blood pressure 77 mm[Hg] Liv Knapp MD Work Phone: [facility] 09-28-2022 11:04-0500 Heart rate 90 /min Liv Knapp MD Work Phone: [facility] 09-28-2022 11:04-0500 Respiratory rate 16 /min Liv Knapp MD Work Phone: [facility] 09-28-2022 11:04-0500 SaO2% (BldA) [Mass fraction] 97 % Liv Knapp MD Work Phone: [facility] 09-28-2022 11:04-0500 Systolic blood pressure 120 mm[Hg] Liv Knapp MD Work Phone: [facility] 08-19-2022 10:22-0400 Body temperature 97.11 [degF] Caryl Roxana FARM MANAGER.SENIOR ACCOUNT CLERK Work Phone: [facility] 08-19-2022 10:22-0400 Body weight 68.04 kg Caryl Roxana FARM MANAGER.SENIOR ACCOUNT CLERK Work Phone: [facility] 08-19-2022 10:22-0400 Diastolic blood pressure 98 mm[Hg] Caryl Roxana FARM MANAGER.SENIOR ACCOUNT CLERK Work Phone: [facility] 08-19-2022 10:22-0400 Heart rate 93 /min Caryl Roxana FARM MANAGER.SENIOR ACCOUNT CLERK Work Phone: [facility] 08-19-2022 10:22-0400 Respiratory rate 18 /min Caryl Roxana FARM MANAGER.SENIOR ACCOUNT CLERK Work Phone: [facility] 08-19-2022 10:22-0400 SaO2% (BldA) [Mass fraction] 99 % Caryl Roxana FARM MANAGER.SENIOR ACCOUNT CLERK Work Phone: [facility] 08-19-2022 10:22-0400 Systolic blood pressure 144 mm[Hg] Caryl Roxana FARM MANAGER.SENIOR ACCOUNT CLERK Work Phone: [facility] 07-28-2022 09:08-0400 Body weight 67.13 kg [facility] Lara FARM MANAGER.SENIOR ACCOUNT CLERK Work Phone: [facility] 07-28-2022 09:08-0400 Diastolic blood pressure 84 mm[Hg] Kelsi Bermudez FARM MANAGER.SENIOR ACCOUNT CLERK Work Phone: [facility] 07-28-2022 09:08-0400 Heart rate 94 /min Kelsi Lara FARM MANAGER.SENIOR ACCOUNT CLERK Work Phone: [facility] 07-28-2022 09:08-0400 Respiratory rate 16 /min Kelsi Lara FARM MANAGER.SENIOR ACCOUNT CLERK Work Phone: [facility] 07-28-2022 09:08-0400 SaO2% (BldA) [Mass fraction] 97 % Kelsi Lara FARM MANAGER.SENIOR ACCOUNT CLERK Work Phone: [facility] 07-28-2022 09:08-0400 Systolic blood pressure 120 mm[Hg] Kelsi Lara FARM MANAGER.SENIOR ACCOUNT CLERK Work Phone: [facility] 05-23-2022 23:56-0400 Diastolic blood pressure 78 mm[Hg] Dr. Celso Freire Work Phone: [facility] Work Phone: 05-23-2022 23:56-0400 Heart rate 88 /min Dr. Celso Freire Work Phone: [facility] Work Phone: 05-23-2022 23:56-0400 Respiratory rate 16 /min Dr. Celso Freire Work Phone: [facility] Work Phone: 05-23-2022 23:56-0400 SaO2% (BldA) [Mass fraction] 98 % Dr. Celso Freire Work Phone: [facility] Work Phone: 05-23-2022 23:56-0400 Systolic blood pressure 131 mm[Hg] Dr. Celso Freire Work Phone: [facility] Work Phone: 05-23-2022 20:44-0400 Body height 157.[address] Celso Freire Work Phone: [facility] Work Phone: 05-23-2022 20:44-0400 Body mass index (BMI) [Percentile] Per age and sex 90.7 % Dr. Celso Freire Work Phone: [facility] Work Phone: 05-23-2022 20:44-0400 Body mass index (BMI) [Ratio] 28 kg/m2 Dr. Celso Freire Work Phone: [facility] Work Phone: 05-23-2022 20:44-0400 Body temperature 97.9 [degF] Dr. Celso Freire Work Phone: [facility] Work Phone: 05-23-2022 20:44-0400 Body weight 69.[address] Celso Freire Work Phone: [facility] Work Phone: 03-16-2022 11:35-0400 Body temperature 97.6 [degF] Dr. Celso Freire Work Phone: [facility] Work Phone: 03-16-2022 11:35-0400 Diastolic blood pressure 90 mm[Hg] Dr. Celso Freire Work Phone: [facility] Work Phone: 03-16-2022 11:35-0400 Heart rate 102 /min Dr. Celso Freire Work Phone: [facility] Work Phone: 03-16-2022 11:35-0400 Respiratory rate 15 /min Dr. Celso Freire Work Phone: [facility] Work Phone: 03-16-2022 11:35-0400 SaO2% (BldA) [Mass fraction] 99 % Dr. Celso Freire Work Phone: [facility] Work Phone: 03-16-2022 11:35-0400 Systolic blood pressure 140 mm[Hg] Dr. Celso Freire Work Phone: [facility] Work Phone: 02-16-2022 14:32-0400 Body temperature 99 [degF] Dr. Celso Freire Work Phone: [facility] Work Phone: 02-16-2022 14:32-0400 Diastolic blood pressure 82 mm[Hg] Dr. Celso Freire Work Phone: [facility] Work Phone: 02-16-2022 14:32-0400 Heart rate 79 /min Dr. Celso Freire Work Phone: [facility] Work Phone: 02-16-2022 14:32-0400 Respiratory rate 14 /min Dr. Celso Freire Work Phone: [facility] Work Phone: 02-16-2022 14:32-0400 SaO2% (BldA) [Mass fraction] 98 % Dr. Celso Freire Work Phone: [facility] Work Phone: 02-16-2022 14:32-0400 Systolic blood pressure 122 mm[Hg] Dr. Celso Freire Work Phone: [facility] Work Phone: 02-16-2022 14:32-0400 Body temperature 99 [degF] Dr. Celso Freire Work Phone: [facility] Work Phone: 02-16-2022 14:32-0400 Diastolic blood pressure 82 mm[Hg] Dr. Celso Freire Work Phone: [facility] Work Phone: 02-16-2022 14:32-0400 Heart rate 79 /min Dr. Celso Freire Work Phone: [facility] Work Phone: 02-16-2022 14:32-0400 Respiratory rate 14 /min Dr. Celso Freire Work Phone: [facility] Work Phone: 02-16-2022 14:32-0400 SaO2% (BldA) [Mass fraction] 98 % Dr. Celso Freire Work Phone: [facility] Work Phone: 02-16-2022 14:32-0400 Systolic blood pressure 122 mm[Hg] Dr. Celso Freire Work Phone: [facility] Work Phone: NEGATED: Highlighted [id number] 14:52-0500 BMI (Body Mass Index) 23.13 kg/m2 Ofelia Demian AT [facility] Work Phone: NEGATED: Highlighted [id number] 14:52-0500 BP Diastolic 84 mm[Hg] Ofelia Arciniega AT [facility] Work Phone: NEGATED: Highlighted [id number] 14:52-0500 BP Systolic 125 mm[Hg] Ofelia Arciniega AT [facility] Work Phone: NEGATED: Highlighted [id number] 14:52-0500 Height 157.48 cm Ofelia Arciniega AT [facility] Work Phone: NEGATED: Highlighted [id number] 14:52-0500 Height 157 cm Ofelia Arciniega AT [facility] Work Phone: NEGATED: Highlighted [id number] 14:52-0500 Pulse (Heart Rate) 75 /min Ofelia Demian AT [facility] Work Phone: NEGATED: Highlighted [id number] 14:52-0500 Weight 57.15 kg Ofelia Arciniega AT [facility] Work Phone: NEGATED: Highlighted [id number] 14:52-0500 Weight 57 kg Ofelia Arciniega AT [facility] Work Phone: Encounters Encounter Date Encounter Type Care Provider Facility Start: 07-07-2025 End: 07-07-2025 Patient encounter procedure Neto Mcarthur MD Work Phone: [facility] Comment on above: Status post labral r epair of shoulder (Primary Dx) Start: 07-07-2025 End: 07-07-2025 ambulatory NETO MCARTHUR Facility:[facility] Start: 07-03-2025 End: 07-03-2025 ambulatory Maycoitz Robledo BEEHIVE KILN SUPERVISOR Work Phone: [facility] Comment on above: Chronic right should er pain (Primary Dx); Weakness of right upper extremity; Decreased right shoulder range of motion Start: 07-03-2025 End: 07-03-2025 Office outpatient visit 25 minutes Annalisa Presley APRN.SENIOR ACCOUNT CLERK Work Phone: [facility] Comment on above: Depression, unspecif ied depression type (Primary Dx); Stress; Attention deficit disorder (ADD) in adult; Medication management contract agreement; Hypertension, essential; OCTAVIO (generalized anxiety disorder) Start: 07-03-2025 End: 07-03-2025 ambulatory CELSO FREIRE Facility:[facility] Start: 06-18-2025 End: 06-19-2025 Refill Kelsi Bermudez APRN.SENIOR ACCOUNT CLERK Work Phone: [facility] [place] Comment on above: Refill Request Start: 06-17-2025 End: 06-17-2025 ambulatory Luis Enrique Sears PT Work Phone: [facility] Comment on above: Chronic right should er pain (Primary Dx); Weakness of right upper extremity; Decreased right shoulder range of motion Start: 06-11-2025 End: 06-11-2025 Patient encounter procedure [facility] OB/Gynecology Start: 06-11-2025 End: 06-11-2025 ambulatory Airconditioning Engineer [facility] [employer] Work Phone: OB/Gynecology Start: 06-01-2025 End: 06-01-2025 Patient encounter procedure Tina Power MD Work Phone: OB/Gynecology Comment on above: examinatio n or test, negative result (Primary Dx); DUB (dysfunctional uterine bleeding); IUD (intrauterine device) in place Start: 06-01-2025 End: 06-01-2025 ambulatory CELSO L FREIRE Facility:[facility] Start: 05-28-2025 End: 05-28-2025 ambulatory CELSO L FREIRE Facility:[facility] Start: 05-28-2025 End: 05-28-2025 Patient encounter procedure Jaqueline Cardona APRN.SENIOR ACCOUNT CLERK Work Phone: Neurology Comment on above: Chronic migraine wit hout aura, intractable, without status migrainosus (Primary Dx) Start: 05-27-2025 End: 05-27-2025 Office outpatient visit 15 minutes Annalisa Presley APRN.SENIOR ACCOUNT CLERK Work Phone: [facility] Comment on above: Depression, unspecif ied depression type (Primary Dx); OCTAVIO (generalized anxiety disorder); Menstrual-related mood disorder; Brain fog; Urinary frequency; Suprapubic abdominal pain; Flank pain; Screening for depression; Encounter for screening examination for other mental health and behavioral disorders Start: 05-27-2025 End: 05-27-2025 ambulatory CELSO L FREIRE Facility:[facility] Start: 05-19-2025 End: 05-19-2025 Patient encounter procedure Neto Mcarthur MD Work Phone: [facility] Comment on above: Status post labral r epair of shoulder (Primary Dx) Start: 05-19-2025 End: 05-19-2025 ambulatory NETO MCARTHUR Facility:[facility] Start: 05-15-2025 End: 05-15-2025 Office outpatient visit 25 minutes Hayley Lozoya PA-C Work Phone: [facility] Comment on above: Acute non-recurrent sinusitis, unspecified location (Primary Dx) Start: 05-15-2025 End: 05-15-2025 ambulatory HAYLEY LOZOYA Facility:[facility] Start: 05-05-2025 End: 05-05-2025 ambulatory Jolly Peterson Porfirio BEEHIVE KILN SUPERVISOR Work Phone: [facility] Comment on above: Chronic right should er pain (Primary Dx); Weakness of right upper extremity; Decreased right shoulder range of motion Start: 04-28-2025 End: 04-28-2025 Telephone encounter Luis Enrique Sears PT Work Phone: [facility] Comment on above: No Show Start: 04-21-2025 End: 04-21-2025 Telephone encounter Celso Freire DO Work Phone: [facility] [place] Comment on above: Rash Start: 04-21-2025 End: 04-21-2025 ambulatory TAYLER PODLOGAR Facility:[facility] Start: 04-21-2025 End: 04-21-2025 Patient encounter procedure Tayler Duncan FARM MANAGER.SENIOR ACCOUNT CLERK Work Phone: [facility] Comment on above: Skin eruption (Prima ry Dx) Start: 04-20-2025 End: 04-20-2025 ambulatory Jolly Kristen Porfirio BEEHIVE KILN SUPERVISOR Work Phone: [facility] Comment on above: Chronic right should er pain (Primary Dx); Weakness of right upper extremity; Decreased right shoulder range of motion Start: 04-16-2025 End: 04-16-2025 Office outpatient visit 15 minutes Little Cheng FARM MANAGER.SENIOR ACCOUNT CLERK Work Phone: [facility] Comment on above: Brain fog (Primary D x); Depression, unspecified depression type Start: 04-16-2025 End: 04-16-2025 ambulatory LITTLE CHENG Facility:[facility] Start: 04-14-2025 End: 04-14-2025 ambulatory NETO MCARTHUR [facility] Start: 04-14-2025 End: 04-14-2025 Patient encounter procedure Neto Mcarthur MD Work Phone: [facility] Comment on above: Status post labral r epair of shoulder (Primary Dx) Start: 04-06-2025 End: 04-06-2025 ambulatory Luis Enrique Sears PT Work Phone: [facility] Comment on above: Chronic right should er pain (Primary Dx); Weakness of right upper extremity; Decreased right shoulder range of motion Start: 04-03-2025 End: 04-03-2025 ambulatory NETO MCARTHUR Facility:[facility] Start: 04-01-2025 End: 04-01-2025 Telephone encounter Neto Mcarthur MD Work Phone: [facility] Start: 04-01-2025 End: 04-01-2025 Office outpatient visit 15 minutes Annalisa Presley APRN.SENIOR ACCOUNT CLERK Work Phone: [facility] Comment on above: Postural orthostatic tachycardia syndrome (POTS) (Primary Dx) Start: 04-01-2025 End: 04-01-2025 ambulatory ANNALISA PRESLEY Facility:[facility] Start: 04-01-2025 End: 04-01-2025 ambulatory HILARIO KILLIAN Facility:[facility] Start: 04-01-2025 End: 04-01-2025 Patient encounter procedure Hilario Killian MD Work Phone: Cardiology Comment on above: Palpitations (Primar y Dx); Syncope, unspecified syncope type Start: 03-30-2025 End: 03-30-2025 Admission to [facility] 2 Pre Surgical Testing Start: 03-30-2025 End: 03-30-2025 ambulatory NETO MCARTHUR Pre Surgical Testing Comment on above: Preop examination (P rimary Dx); Superior glenoid labrum lesion of right shoulder, initial encounter; Hypertension, essential; POTS (postural orthostatic tachycardia syndrome); Exercise-induced asthma (HCC) Start: 03-30-2025 End: 03-30-2025 Preprocedural examination done [facility] 2 [facility] Work Phone: Start: 03-25-2025 End: 03-25-2025 Telephone encounter Neto Mcarthur MD Work Phone: [facility] Start: 03-23-2025 Preprocedural examination done Neto Mcarthur MD Work Phone: [facility] Work Phone: Start: 03-23-2025 Encounter for other preprocedural examination NETO MCARTHUR [facility] Start: 03-13-2025 End: 05-13-2025 Follow-up encounter Raya Taveras APRN.CNM Work Phone: OB/Gynecology Start: 03-12-2025 ambulatory JALEEL DOHERTY Facility:[facility] Start: 03-03-2025 End: 03-03-2025 ambulatory RAYA TAVERAS Facility:[facility] Start: 03-03-2025 End: 03-03-2025 Patient encounter procedure Raya Taveras APRN.CNM Work Phone: OB/Gynecology Comment on above: Encounter for gyneco logical examination (general) (routine) with abnormal findings (Primary Dx); Screening for cervical cancer; Encounter for screening for human papillomavirus (HPV); Screen for STD (sexually transmitted disease); IUD (intrauterine device) in place Start: 03-03-2025 End: 03-03-2025 Patient encounter status Raya Taveras APRN.CNM Work Phone: [facility] Start: 02-24-2025 End: 02-24-[address] Celso Freire DO Work Phone: [facility] Work Phone: Start: 02-24-2025 End: 02-24-2025 Patient encounter procedure Raya Taveras CNM -Laboratory Work Phone: Start: 02-24-2025 End: 02-24-2025 ambulatory Raya Taveras Facility:[facility] Start: 02-17-2025 End: 02-17-2025 Orders Only Neto Mcarthur MD Work Phone: [facility] Comment on above: Superior glenoid lab rum lesion of right shoulder, initial encounter (Primary Dx) Start: 02-16-2025 End: 02-16-2025 Patient encounter procedure Neto Mcarthur MD Work Phone: [facility] Comment on above: Superior glenoid lab rum lesion of right shoulder, initial encounter (Primary Dx) Start: 02-16-2025 End: 02-16-2025 ambulatory NETO MCARTHUR Facility:[facility] Start: 02-13-2025 End: 02-13-2025 ambulatory CELSO L FREIRE Facility:[facility] Start: 02-13-2025 End: 02-13-2025 Patient encounter procedure Jaqueline Cardona APRN.SENIOR ACCOUNT CLERK Work Phone: Neurology Comment on above: Chronic migraine wit hout aura, intractable, without status migrainosus (Primary Dx) Start: 02-12-2025 End: 02-12-2025 ambulatory [facility] Facility:[facility] Start: 01-30-2025 End: 04-01-2025 Follow-up encounter Kelsi Bermudez APRN.CNP Work Phone: [facility] Start: 01-29-2025 End: 01-29-2025 ambulatory [facility] Facility:[facility] Start: 01-29-2025 End: 01-29-2025 Subsequent hospital visit by physician [facility] Work Phone: Radiology Comment on above: Hypertension, essent ial [I10] Start: 01-29-2025 End: 01-29-2025 ambulatory [facility] Facility:[facility] Start: 01-29-2025 End: 01-29-2025 Office outpatient visit 25 minutes Kelsi Bermudez APRN.CNP Work Phone: [facility] [place] Comment on above: Hypertension, essent ial (Primary Dx); Palpitations; Tachycardia; Fatigue, unspecified type; Sore throat; Tired; Sensation of swollen throat; Dizziness; Screening for thyroid disorder Start: 01-22-2025 End: 01-22-2025 ambulatory CELSO L FREIRE Facility:[facility] Start: 01-22-2025 End: 01-22-2025 Office outpatient visit 25 minutes Vin Canada APRN.CNP Work Phone: [facility] Comment on above: Sore throat (Primary Dx); Sinobronchitis Start: 01-20-2025 ambulatory NETO Ambriz lity:[facility] Start: 01-20-2025 End: 01-20-2025 Subsequent hospital visit by physician Mri 2 [facility] (I-Stat/Lg Bore/1.5t) [facility] Comment on above: Superior glenoid lab rum lesion of right shoulder, initial encounter [S43.431A] Start: 01-20-2025 End: 01-20-2025 ambulatory UNKNOWN PROVIDER Facility:[facility] Start: 01-20-2025 End: 01-20-2025 Subsequent hospital visit by physician Gi/Gu 2 [facility] (I-Stat) [facility] GI/ [facility] Comment on above: Arrived Start: 01-16-2025 End: 03-18-2025 Follow-up encounter Kelsi Bermudez APRN.CNP Work Phone: [facility] Start: 01-15-2025 End: 01-15-2025 ambulatory KELSI BERMUDEZ Facility:[facility] Start: 01-15-2025 End: 01-15-2025 Office outpatient visit 25 minutes Kelsi Bermudez APRN.CNP Work Phone: [facility] Comment on above: Hypertension, essent ial (Primary Dx); Resistant hypertension; Pedal edema; Brain fog; Malaise; Fatigue, unspecified type; Generalized weakness; Lightheaded; Exposure to influenza Start: 01-12-2025 End: 01-15-2025 ambulatory Kelsi Bermudez APRN.CNP Work Phone: [facility] Comment on above: Blood pressure Start: 01-06-2025 End: 03-08-2025 Follow-up encounter Raya Taveras APRN.CNM Work Phone: OB/Gynecology Start: 01-05-2025 End: 01-05-2025 E-mail encounter from caregiver Raya Taveras APRN.CNM Work Phone: OB/Gynecology Start: 01-05-2025 End: 01-05-2025 ambulatory Raya Taveras APRN.CNM Work Phone: OB/Gynecology Comment on above: Von Willebrand test Start: 01-05-2025 End: 01-05-2025 Patient encounter procedure Raya Taveras APRN.CNM Work Phone: OB/Gynecology Comment on above: Encounter for IUD in sertion (Primary Dx); Screening for STDs (sexually transmitted diseases) Start: 12-26-2024 End: 01-06-2025 Telephone encounter Kelsi Bermudez APRN.CNP Work Phone: [facility] Comment on above: Consult Start: 12-26-2024 End: 12-26-2024 ambulatory CELSO FREIRE Facility:[facility] Start: 12-26-2024 End: 12-26-2024 Office outpatient visit 15 minutes Kelsi Bermudez APRN.CNP Work Phone: [facility] Comment on above: Hypertension, essent ial (Primary Dx) Start: 12-22-2024 End: 12-22-2024 Patient encounter procedure Neto Mcarthur MD Work Phone: [facility] Comment on above: Superior glenoid lab rum lesion of right shoulder, initial encounter (Primary Dx) Start: 12-22-2024 End: 12-22-2024 ambulatory NETO MCARTHUR Facility:[facility] Start: 12-17-2024 End: 12-17-2024 ambulatory KELSI BERMUDEZ Facility:[facility] Start: 12-17-2024 End: 12-17-2024 Patient encounter procedure Raya Taveras APRN.CNM Work Phone: OB/Gynecology Comment on above: Insulin resistance ( Primary Dx); control counseling; Breakthrough bleeding on control pills Start: 12-10-2024 End: 12-10-2024 ambulatory CELSO FREIRE Facility:[facility] Start: 12-10-2024 End: 12-10-2024 Patient encounter procedure Federico Monroy DO Work Phone: [facility] [place] Comment on above: Rotator cuff disorde r, right (Primary Dx) Start: 12-03-2024 End: 12-10-2024 Telephone encounter Kelsi Bermudez APRN.CNP Work Phone: [facility] [place] Comment on above: Appointment Start: 12-02-2024 End: 12-23-2024 ambulatory Airconditioning Engineer [facility] Work Phone: OB/Gynecology Comment on above: Migraine Start: 12-02-2024 End: 12-02-2024 Patient encounter procedure Us Tech 1 [facility] OB/Gynecology Start: 11-27-2024 End: 11-27-2024 OT/PT/Speech Visit [facility]a [facility] Comment on above: Disorder of right ro tator cuff (Primary Dx) Start: 11-26-2024 End: 11-26-2024 Telephone encounter Emely Handy APRN.SENIOR ACCOUNT CLERK Work Phone: OB/Gynecology Comment on above: Appointment Start: 11-25-2024 End: 11-25-2024 ambulatory CELSO L FREIRE Facility:[facility] Start: 11-25-2024 End: 11-25-2024 ambulatory CELSO L FREIRE Facility:[facility] Start: 11-25-2024 End: 11-25-2024 Office outpatient visit 40 minutes Kelsi Bermudez APRN.SENIOR ACCOUNT CLERK Work Phone: [facility] [place] Comment on above: Hypertension, essent ial (Primary Dx); Palpitations; Tachycardia; Insulin resistance; Menorrhagia with irregular cycle; Abnormal menstrual cycle Start: 11-20-2024 End: 11-20-2024 ambulatory Emely Handy APRN.SENIOR ACCOUNT CLERK Work Phone: OB/Gynecology Comment on above: Bleeding Start: 10-21-2024 End: 10-21-2024 Office outpatient visit 15 minutes Kelsi Bermudez APRN.SENIOR ACCOUNT CLERK Work Phone: [facility] [place] Comment on above: Depression, unspecif ied depression type; Stress; Hypertension, essential; Palpitations; Tachycardia Start: 10-21-2024 End: 10-21-2024 ambulatory CELSO FREIRE Facility:[facility] Start: 10-01-2024 End: 10-01-2024 OT/PT/Speech Visit Raya Lo'Jose Maria PT [facility] Physical Therapy Comment on above: Disorder of right ro tator cuff (Primary Dx) Start: 09-17-2024 End: 09-17-2024 OT/PT/Speech Visit Raya Lo'Jose Maria PT [facility] Physical Therapy Comment on above: Disorder of right ro tator cuff (Primary Dx) Start: 09-09-2024 End: 09-09-2024 OT/PT/Speech Visit Raya Lo'Jose Maria PT [facility] Physical Therapy Comment on above: Disorder of right ro tator cuff (Primary Dx) Refill Request Start: 09-02-2024 End: 09-02-2024 OT/PT/Speech Visit Raya Lo'Jose Maria PT [facility] Physical Therapy Comment on above: Disorder of right ro tator cuff (Primary Dx) Start: 08-29-2024 End: 08-29-2024 ambulatory FEDERICO MONROY Facility:[facility] Start: 08-29-2024 End: 08-29-2024 Patient encounter procedure Federico Monroy DO Work Phone: [facility] Comment on above: Rotator cuff disorde r, right (Primary Dx) Start: 08-15-2024 End: 08-15-2024 Telephone encounter Federico Monroy DO Work Phone: Orthopaedics Comment on above: Results; Appointment Start: 08-11-2024 End: 08-11-2024 ambulatory CELSO FREIRE Facility:[facility] Start: 08-11-2024 End: 08-11-2024 Subsequent hospital visit by physician Kelli Orantes(Istafelicity/Ted Br/1.5t) Work Phone: Radiology Comment on above: 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] Start: 08-01-2024 End: 08-01-2024 ambulatory FEDERICO MONROY Facility:[facility] Start: 08-01-2024 End: 08-01-2024 Patient encounter procedure Federico Monroy DO Work Phone: [facility] Comment on above: Instability of right shoulder joint (Primary Dx) Start: 07-24-2024 End: 07-24-2024 Telephone encounter Kelsi Bermudez APRN.SENIOR ACCOUNT CLERK Work Phone: [facility] Comment on above: Orders Start: 07-15-2024 End: 07-15-2024 ambulatory CELSO FREIRE Facility:[facility] Start: 07-15-2024 End: 07-15-2024 Patient encounter procedure Kelsi Lara FARM MANAGER.SENIOR ACCOUNT CLERK Work Phone: [facility] Comment on above: Hypertension, essent ial (Primary Dx); Palpitations; Acute pain of right shoulder Start: 07-07-2024 ambulatory Celso Freire Facilit :[facility] Start: 06-24-2024 End: 06-24-2024 ambulatory Franco Tao CCC-BUHR MILL OPERATOR Speech Therapy [facility] Comment on above: Cognitive communicat ion deficit (Primary Dx); Post concussive encephalopathy Start: 06-20-2024 Telephone encounter Emely paris FARM MANAGER.SENIOR ACCOUNT CLERK Work Phone: OB/Gynecology Comment on above: Medication Problem Start: 06-18-2024 End: 06-18-2024 Patient encounter procedure Little Cheng FARM MANAGER.SENIOR ACCOUNT CLERK Work Phone: [facility] Comment on above: Sore throat (Primary Dx); Acute cough; Hypertension, essential Start: 06-16-2024 End: 06-16-2024 Patient encounter procedure Rosalia Guy APRN.SENIOR ACCOUNT CLERK Work Phone: [facility] Comment on above: Acute suppurative ot itis media of both ears without spontaneous rupture of tympanic membranes, recurrence not specified (Primary Dx); Acute cough Start: 06-03-2024 Telephone encounter Franco Gamboa [facility] Start: 05-26-2024 Refill Emely Handy FARM MANAGER.SENIOR ACCOUNT CLERK Work Phone: OB/Gynecology Comment on above: Refill Request Medication Start: 05-12-2024 Telephone encounter Franco Gamboa peech Therapy [facility] Start: 05-09-2024 Refill Celso malcolm DO Work Phone: [facility] Medicine [place] Comment on above: Refill Request Start: 05-08-2024 ambulatory Sage gamboa MD Work Phone: Neurology Start: 05-06-2024 ambulatory Ceci Monzonle kell Tovar DO Work Phone: Cardiology Comment on above: Blood pressure Start: 05-06-2024 End: 05-06-2024 Patient encounter procedure Emely Handy FARM MANAGER.SENIOR ACCOUNT CLERK Work Phone: OB/Gynecology Comment on above: Irregular menstrual bleeding (Primary Dx); Heavy menses due to IUD (HCC) (HCC); Essential hypertension; Breakthrough bleeding on Depo-Provera Start: 05-05-2024 End: 05-05-2024 ambulatory Franco Tao CCC-BUHR MILL OPERATOR Speech Therapy [facility] Comment on above: Cognitive communicat ion deficit (Primary Dx); Post concussive encephalopathy Start: 04-29-2024 ambulatory Te P Kerns D O Work Phone: Neurology Comment on above: Migraine treatment Start: 04-28-2024 ambulatory Shaila Haynes Work Phone: Neurology Comment on above: Study invitation Start: 04-28-2024 E-mail encounter fro m caregiver Shaila Thompson MD Work Phone: Neurology Start: 04-23-2024 End: 04-23-2024 ambulatory Te P Kerns DO Work Phone: Neurology Comment on above: Migraine without aur a and without status migrainosus, not intractable (Primary Dx); Intractable chronic migraine without aura and without status migrainosus; Chronic migraine without aura, intractable, without status migrainosus; Cervicalgia Start: 04-23-2024 End: 04-23-2024 Telemedicine consultation with patient Te P Kerns DO Work Phone: Neurology Start: 04-16-2024 Refill Dustin Morgan FARM MANAGER.SENIOR ACCOUNT CLERK Work Phone: Cardiology Comment on above: Refill Request Start: 04-11-2024 Telephone encounter Little malcolm FARM MANAGER.SENIOR ACCOUNT CLERK Work Phone: Family Medicine [place] Comment on above: Results Start: 04-11-2024 End: 04-11-2024 Patient encounter procedure Little Cheng FARM MANAGER.SENIOR ACCOUNT CLERK Work Phone: Family [facility] [place] Comment on above: Strep throat (Primar y Dx) Start: 03-31-2024 End: 03-31-2024 Patient encounter procedure Kuldeep Tijerina FARM MANAGER.SENIOR ACCOUNT CLERK Work Phone: [facility] Comment on above: Strep throat (Primar y Dx); Sore throat Start: 02-26-2024 Refill Little Cheng FARM MANAGER.SENIOR ACCOUNT CLERK Work Phone: Family Medicine [place] Comment on above: Refill Request Start: 02-25-2024 End: 02-25-2024 Patient encounter procedure Shaila Hopkins MD Work Phone: Neurology Comment on above: Post concussive ence phalopathy (Primary Dx); Intractable chronic migraine without aura and without status migrainosus Start: 02-21-2024 End: 02-21-2024 ambulatory CELSO FREIRE Facility:[facility] Start: 02-21-2024 Telephone encounter Ceci Anette Tovar DO Work Phone: Cardiology Comment on above: Appointment Start: 02-21-2024 End: 02-21-2024 ambulatory Ceci Velásquez La DO Work Phone: Cardiology Comment on above: Tachycardia (Primary Dx); Syncope and collapse; Hypertension, essential; Autonomic dysfunction Start: 02-21-2024 End: 02-21-2024 Telemedicine consultation with patient Ceci Tovar DO Work Phone: [facility] Start: 01-26-2024 End: 01-26-2024 Patient encounter procedure Mary Crum FARM MANAGER.SENIOR ACCOUNT CLERK Work Phone: [facility] Comment on above: History of migraine (Primary Dx); Bacterial sinusitis Start: 01-23-2024 ambulatory Emely Handy FARM MANAGER.SENIOR ACCOUNT CLERK Work Phone: OB/Gynecology Comment on above: control Start: 01-17-2024 Telephone encounter Pari joy MD Work Phone: Neurology Comment on above: Appointment Start: 01-03-2024 E-mail encounter denis rao caregiver [facility] Provider [facility] Start: 01-03-2024 Patient encounter procedure [facility] Provider Endocrinology Comment on above: Appointment with Dr. Tovar Start: 12-28-2023 End: 12-28-2023 Patient encounter procedure Federico Porfirio DO Work Phone: [facility] [place] Comment on above: Acute pain of right shoulder Start: 12-26-2023 Refill Kelsi barrett APRN.SENIOR ACCOUNT CLERK Work Phone: [facility] [place] Comment on above: Refill Request Start: 12-26-2023 Refill Ceci Tovar DO Work Phone: Cardiology Comment on above: Refill Request Start: 12-15-2023 End: 12-15-2023 Subsequent hospital visit by physician Steve [facility] [place] Work Phone: Radiology Comment on above: Acute pain of right shoulder [M25.511] Start: 12-07-2023 End: 12-10-2023 ambulatory CELSO Kashmir FREIRE Facility:[facility] Start: 10-14-2023 Refill Kelsi barrett APRN.SENIOR ACCOUNT CLERK Work Phone: [facility] [place] Comment on above: Med Change Request Start: 10-05-2023 Telephone encounter Kelsi Gutierrez APRN.SENIOR ACCOUNT CLERK Work Phone: [facility] [place] Comment on above: Patient Update Start: 10-04-2023 End: 10-04-2023 Patient encounter procedure Kelsi Bermudez APRN.SENIOR ACCOUNT CLERK Work Phone: [facility] [place] Comment on above: Irritant contact giovani matitis due to cosmetics (Primary Dx); Shaky; Lightheaded; Hypertension, essential; Tachycardia; Palpitations; OCTAVIO (generalized anxiety disorder); Sinobronchitis Start: 09-22-2023 Telephone encounter Kelsi Gutierrez APRN.SENIOR ACCOUNT CLERK [facility] Comment on above: Patient Question Start: 09-18-2023 End: 09-18-2023 Office outpatient visit 15 minutes Vin Canada APRN.SENIOR ACCOUNT CLERK Work Phone: [facility] Comment on above: Sore throat (Primary Dx); Eustachian tube dysfunction, bilateral Start: 09-14-2023 End: 09-14-2023 Patient encounter procedure Daisy Zarate APRN.SENIOR ACCOUNT CLERK Work Phone: OB/Gynecology Comment on above: Urine frequency (Katarzyna karena Dx); Dysuria; Left flank pain; Pelvic pain in female; Encounter for IUD removal Start: 09-13-2023 ambulatory Celso Fournierjeffry son DO Work Phone: [facility] Comment on above: Blood pressure Start: 09-13-2023 Telephone encounter Vin hansen APRN.SENIOR ACCOUNT CLERK Work Phone: [facility] Comment on above: Results Start: 09-12-2023 End: 09-12-2023 Patient encounter procedure Nohemi Islas PA-C Work Phone: [facility] Comment on above: Urinary frequency (P rimary Dx); Dysuria Start: 08-09-2023 Refill Liv Knapp MD Work Phone: Neurology Comment on above: Refill Request Start: 07-31-2023 End: 07-31-2023 Patient encounter procedure Emely Handy APRN.SENIOR ACCOUNT CLERK Work Phone: OB/Gynecology Comment on above: Pelvic pain in femal e (Primary Dx); Encounter for initial prescription of contraceptive pills Start: 07-24-2023 Refill Celso Suarez son DO Work Phone: [facility] Comment on above: Refill Request Start: 07-18-2023 Telephone encounter Celso moreland DO Work Phone: [facility] Comment on above: Results Start: 07-16-2023 Refill Little Cheng APRN.SENIOR ACCOUNT CLERK Work Phone: [facility] Comment on above: Refill Request Start: 06-11-2023 Telephone encounter Celso Kashmir Kristen moreland DO Work Phone: [facility] Comment on above: Question Start: 05-28-2023 End: 05-28-2023 Subsequent hospital visit by physician Xr [facility] [place] Work Phone: Radiology Comment on above: Finger injury, initi al encounter [S69.90XA] Start: 05-04-2023 End: 05-04-2023 Subsequent hospital visit by physician Us [facility] 2 Work Phone: Radiology Comment on above: Pelvic pain in femal e [R10.2] Start: 04-25-2023 End: 04-25-2023 Patient encounter procedure Celso Freire DO Work Phone: [facility] Comment on above: Tachycardia (Primary Dx); Hypertension, essential; H/O multiple concussions; Migraine with aura, not intractable, without status migrainosus Start: 04-24-2023 End: 04-24-2023 Patient encounter procedure Russell Tracy MD Work Phone: Otolaryngology Comment on above: 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 (Primary Dx) Start: 04-23-2023 End: 04-23-2023 Subsequent hospital visit by physician Mri [facility] (I-Stat/1.5t) Work Phone: Radiology Comment on above: 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 [H90.42] Start: 03-28-2023 End: 03-28-2023 Patient encounter procedure Kathy Duffy APRN.CNP Work Phone: Internal Medicine [place] Comment on above: Palpitations (Primar y Dx); Elevated blood pressure reading without diagnosis of hypertension; Episodic lightheadedness Start: 03-26-2023 End: 03-26-2023 Patient encounter procedure Celsa HURTADO Work Phone: Audiology Comment on above: Hearing difficulty o f left ear 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 (Primary Dx) Start: 03-21-2023 End: 03-21-2023 Emergency department patient visit CELSO FREIRE DO Facility:[facility] Start: 03-21-2023 End: 03-21-2023 Emergency department patient visit DIDI LOWERY MD [facility] Start: 02-19-2023 ambulatory Emely Handy APRN.SENIOR ACCOUNT CLERK Work Phone: OB/Gynecology Comment on above: Medication Start: 11-29-2022 Refill Kelsi barrett APRN.SENIOR ACCOUNT CLERK Work Phone: Family Medicine [place] Comment on above: Med Change Request Start: 11-09-2022 E-mail encounter fro m caregiver Liv Knapp MD Work Phone: [facility] Start: 11-09-2022 Patient encounter procedure Liv Knapp MD Work Phone: Neurology Comment on above: Appointment Needs Re scheduled: 12/29/[address] Knapp Start: 11-06-2022 End: 11-06-2022 Patient encounter procedure Kelsi Bermudez APRN.SENIOR ACCOUNT CLERK Work Phone: Family Medicine [place] Comment on above: Anxiety with depress ion (Primary Dx) Start: 10-10-2022 End: 10-10-2022 Patient encounter procedure Emely Handy APRN.SENIOR ACCOUNT CLERK Work Phone: OB/Gynecology Comment on above: Menstrual irregulari ty (Primary Dx); Dysmenorrhea Start: 10-09-2022 End: 10-09-2022 Patient encounter procedure Kelsi Bermudez APRN.SENIOR ACCOUNT CLERK Work Phone: Family Medicine [place] Comment on above: Migraine with aura, not intractable, without status migrainosus (Primary Dx); Daily headache; H/O multiple concussions; Attention deficit disorder (ADD) in adult Start: 09-28-2022 End: 09-28-2022 Patient encounter procedure Liv Knapp MD Work Phone: Neurology Comment on above: H/O multiple concuss ions; Migraine with aura, not intractable, without status migrainosus Start: 09-11-2022 Refill Little Swainindy ambrocio FARM MANAGER.SENIOR ACCOUNT CLERK Work Phone: [facility] Comment on above: Med Change Request Start: 08-27-2022 Refill Kelsi barrett FARM MANAGER.SENIOR ACCOUNT CLERK Work Phone: [facility] Comment on above: Refill Request Start: 08-19-2022 End: 08-19-2022 Subsequent hospital visit by physician Xr [facility] [place] Work Phone: Radiology Comment on above: Left wrist pain [M25 .532] Start: 08-19-2022 End: 08-19-2022 Patient encounter procedure Caryl Schmidt APRN.SENIOR ACCOUNT CLERK Work Phone: [facility] Comment on above: Left wrist pain (Katarzyna karena Dx) Start: 07-28-2022 End: 07-28-2022 Patient encounter procedure Kelsi Bermudez APRN.SENIOR ACCOUNT CLERK Work Phone: [facility] Comment on above: Well adult exam (Katarzyna karena Dx); Migraine with aura, not intractable, without status migrainosus; H/O multiple concussions; Hair loss; Hair thinning; [id number] condition; Family history of thyroid disease; Screening for thyroid disorder; Encounter for immunization Start: 07-28-2022 End: 07-28-2022 Patient encounter status Kelsi Bermudez APRN.SENIOR ACCOUNT CLERK Work Phone: [facility] Start: 05-23-2022 End: 05-23-2022 Emergency department patient visit Dr. Celso Freire Work Phone: [facility] Start: 03-16-2022 End: 03-16-[address] Celso Freire Work Phone: [facility] Start: 02-16-2022 End: 02-16-[address] Celso Freire Work Phone: [facility] Start: 02-16-2022 End: 02-16-[address] Celso Freire Work Phone: [facility] Start: 02-09-2022 Telephone encounter Amos Munoz Malinda maza DO Work Phone: Cat Scan Comment on above: disk request Start: 02-06-2022 End: 02-06-[address] Celso Freire Work Phone: [facility] Start: 10-26-2021 End: 10-26-[address] Celso Freire Work Phone: [facility] Orthopaedic Spec[facility] Start: 10-22-[address] Celso Freire Work Phone: [facility] Start: 10-02-2018 End: 10-02-2018 Patient encounter procedure Donald Singh PAC Work Phone: [facility] Work Phone: Start: 06-05-2018 End: 06-05-2018 Patient encounter GENARO L [facility] Start: 04-29-2018 End: 04-29-2018 Patient encounter GENARO L [facility] Start: 03-20-2018 End: 03-20-2018 Patient encounter GENARO L [facility] Start: 02-26-2018 End: 02-26-2018 Patient encounter DAISY CHUN [facility] Start: 02-18-2018 End: 02-19-2018 Patient encounter GENARO Marlow [facility] Start: 02-18-2018 End: 02-18-2018 Patient encounter GENARO Marlow [facility] Start: 02-04-2018 End: 02-04-2018 Emergency department patient visit LINDA ABDI [facility] Procedures Date Procedure Procedure Detail Performing Clinician Start: 06-11-2025 Us pelvic nonobstetr ic real-time image complete Tina Power MD Work Phone: Start: 06-01-2025 UA DIP,URINE HCG (POC) Tina Power MD Work Phone: Start: 05-27-2025 Urnls dip stick/tabl et rgnt auto w/o microscopy Annalisa Presley FARM MANAGER.SENIOR ACCOUNT CLERK Work Phone: Start: 05-27-2025 Adult depression scr eening assessment Annalisa Presley FARM MANAGER.SENIOR ACCOUNT CLERK Work Phone: Start: 04-16-2025 Follow-up visit Follow Up LITTLE CHENG Start: 01-22-2025 STREP A MOLECULAR (POC) Lucila Gonzales FARM MANAGER.SENIOR ACCOUNT CLERK Work Phone: Start: 01-20-2025 Mri any jt upper ext remity w/contrast matrl Neto Mcarthur MD Work Phone: Start: 01-05-2025 UA DIP,URINE HCG (POC) Raya Taveras FARM MANAGER.CN Work Phone: Start: 12-02-2024 Us pelvic nonobstetr ic real-time image complete Emely Emporia FARM MANAGER.SENIOR ACCOUNT CLERK Work Phone: Start: 08-29-2024 Arthrocentesis aspir &/inj major jt/bursa w/o us Federicojules Monroy DO Work Phone: Start: 08-11-2024 Mri any jt upper ext remity w/o contrast matrl Federico Monroy DO Work Phone: Start: 03-31-2024 STREP A MOLECULAR (POC) [facility] Provider Start: 12-28-2023 Arthrocentesis aspir &/inj major jt/bursa w/o us Federico Porfirio DO Work Phone: Start: 12-15-2023 Radex clavicle complete Emely Rozina FARM MANAGER.SENIOR ACCOUNT CLERK Work Phone: Start: 10-04-2023 Gluc bld gluc mntr d ev cleared fda spec home use Kelsi Bermudez FARM MANAGER.SENIOR ACCOUNT CLERK Work Phone: Start: 09-18-2023 STREP A MOLECULAR (POC) Mary Crum FARM MANAGER.SENIOR ACCOUNT CLERK Work Phone: Start: 05-28-2023 Radex fingr minimum 2 views Kuldeep Breezy FARM MANAGER.SENIOR ACCOUNT CLERK Work Phone: Start: 05-04-2023 Us transvaginal Emely chahal FARM MANAGER.SENIOR ACCOUNT CLERK Work Phone: Start: 04-23-2023 Mri brain brain stem w/o w/contrast material Russell Tracy MD Work Phone: Start: 08-19-2022 Radex wrist complete minimum 3 views Caryl Schmidt FARM MANAGER.SENIOR ACCOUNT CLERK Work Phone: Start: 07-28-2022 INFLUENZA VACCINE QUADRIVALENT 6 MO - 64 YRS IM Kelsi Bermudez FARM MANAGER.SENIOR ACCOUNT CLERK Work Phone: Start: 05-23-2022 Computed tomography of abdomen and pelvis with contrast Dr. Celso Freire Work Phone: Start: 05-23-2022 CT cervical spine wi thout contrast Dr. Celso Freire Work Phone: Start: 05-23-2022 CT of head without contrast Dr. Celso Freire Work Phone: Start: 03-16-2022 Plain X-ray of shoulder Dr. Celso Freire Work Phone: Start: 02-16-2022 Streptococcus pyogen es antigen assay Dr. Celso Freire Work Phone: Start: 10-22-2021 MRI of joint of lowe r extremity Dr. Celso Freire Work Phone: Start: 10-10-2021 Adult depression scr eening assessment Amos Samano DO, DO Work Phone: Start: 10-02-2018 End: 10-02-2018 Adolescent tobacco screening was negative - non user Donald Singh PAC Work Phone: Streptococcus pyogen es antigen assay Dr. Celso Freire Work Phone: Plan of Treatment Date Care Activity Detail Author Start: 07-03-2026 Annual PCP Team Chronic Disease Visit Annual PCP Team Chronic Disease Visit [facility] Start: 07-03-2026 Hepatitis C screening Hepatitis C Screening [facility] Comment on above: Postponed from 2021 (Declined at t his time) Start: 07-03-2026 HIV screening HIV Screening [facility] Comment on above: Postponed from 2021 (Declined at t his time) Start: 05-27-2026 Annual PCP Team Chronic Disease Visit Annual PCP Team Chronic Disease Visit [facility] Start: 05-27-2026 Anxiety Screening Anxiety Screening [facility] Start: 05-27-2026 Depression Screening Depression Screening [facility] Start: 04-21-2026 Annual PCP Team Chronic Disease Visit Annual PCP Team Chronic Disease Visit [facility] Start: 04-16-2026 Annual PCP Team Chronic Disease Visit Annual PCP Team Chronic Disease Visit [facility] Start: 04-01-2026 Annual PCP Team Chronic Disease Visit Annual PCP Team Chronic Disease Visit [facility] Start: 04-01-2026 BP Controlled (<130/80) BP Controlled (<130/80) [facility] Start: 03-08-2026 End: 03-08-2026 Patient encounter procedure 03/08/2026 10:45 AM EDT Office Visit OB/Gynecology [address] [place], [place] [id number] Raya Taveras APRN.CN [address] [place] [address] Annual OB/Gynecology Comment on above: Annual Start: 03-03-2026 BP Controlled (<130/80) BP Controlled (<130/80) [facility] Start: 03-03-2026 Screening for malignant neoplasm of cervix Cervical Cancer Screening [facility] Start: 01-29-2026 Annual PCP Team Chronic Disease Visit Annual PCP Team Chronic Disease Visit [facility] Start: 01-15-2026 Annual PCP Team Chronic Disease Visit Annual PCP Team Chronic Disease Visit [facility] Start: 01-05-2026 BP Controlled (<130/80) BP Controlled (<130/80) [facility] Start: 01-05-2026 GC (Gonorrhea) Screening (18-24) GC (Gonorrhea) Screening (18-24) [facility] Start: 01-05-2026 Screening for Chlamydia trachomatis Chlamydia Screening (18-) [facility] Start: 12-26-2025 Annual PCP Team Chronic Disease Visit Annual PCP Team Chronic Disease Visit [facility] Start: 11-25-2025 Annual PCP Team Chronic Disease Visit Annual PCP Team Chronic Disease Visit [facility] Start: 10-21-2025 Annual PCP Team Chronic Disease Visit Annual PCP Team Chronic Disease Visit [facility] Start: 09-22-2025 Urine microalbumin profile [facility] Start: 08-18-2025 End: 08-18-2025 Patient encounter procedure 08/18/2025 8:45 AM EDT Office Visit [facility] [address] [place] [address] Neto Mcarthur MD [address] [address] RT SHOULDER F/U [facility] Comment on above: RT SHOULDER F/U Start: 08-14-2025 End: 08-14-2025 Patient encounter procedure 08/14/2025 8:30 AM EDT Office Visit Cardiology [address] [address] Maritza Perrin APRN.SENIOR ACCOUNT CLERK [address] [place], [place] [phone] 3 month follow up Cardiology Comment on above: 3 month follow up Start: 07-31-2025 End: 07-31-2025 Patient encounter procedure 07/31/2025 8:00 AM EDT Office Visit [facility] [place] [address] [place], [place] [phone] Annalisa Presley, FARM MANAGER.SENIOR ACCOUNT CLERK [address] [place], [place] [phone] 4 week [facility] [place] Comment on above: 4 week Start: 07-20-2025 Influenza vaccination Influenza Vaccine (#1) Conesus Lethai c Start: 07-17-2025 End: 07-17-2025 Patient encounter procedure 07/17/2025 1:45 PM EDT Office Visit OB/Gynecology [address] [place] [address] Nargis Lauren APRN.CN [address] [place] [address] discuss bleeding issues OB/Gynecology Comment on above: discuss bleeding issues Start: 07-15-2025 Annual PCP Team Chronic Disease Visit Annual PCP Team Chronic Disease Visit [facility] Start: 07-13-2025 End: 07-13-2025 ambulatory 07/13/2025 6:15 PM EDT OT/PT/Speech Visit [facility] [address] [place], [place] [phone] Luis Enrique Sears, PT [address] [place] [address] shoulder [facility] Comment on above: shoulder Start: 07-07-2025 End: 07-07-2025 Patient encounter procedure 07/07/2025 1:00 PM EDT Office Visit [facility] [address] [place] [address] Neto Mcarthur MD [address] [phone] R SLAP REPAIR SX:04/03/25 [facility] Comment on above: R SLAP REPAIR SX:04/03/25 Start: 07-06-2025 End: 07-06-2025 Patient encounter procedure 07/06/2025 2:40 PM EDT Office Visit OB/Gynecology [address] [place] [address] Tina Power MD [address] [place] [address] discuss bleeding issues OB/Gynecology Comment on above: discuss bleeding issues Start: 07-03-2025 End: 10-02-2025 TOXICOLOGY SCREEN, ROUTINE URINE TOXICOLOGY SCREEN, ROUTINE URINE Lab Routine Attention deficit disorder (ADD) in adult Medication management contract agreement Expected: 07/03/2025, Expires: 10/02/2025 [facility] Work Phone: Comment on above: Expected: 07/03/2025, Expires: Start: 07-03-2025 End: 07-03-2025 ambulatory 07/03/2025 10:15 AM EDT OT/PT/Speech Visit [facility] [address] [place] [address] Mayco Robledo, BEEHIVE KILN SUPERVISOR [address] [place] [address] shoulder [facility] Comment on above: shoulder Start: 06-18-2025 Annual PCP Team Chronic Disease Visit Annual PCP Team Chronic Disease Visit [facility] Start: 06-16-2025 BP Controlled (<130/80) BP Controlled (<130/80) [facility] Start: 06-12-2025 End: 06-12-2025 ambulatory 06/12/2025 1:15 PM EDT OT/PT/Speech Visit [facility] [address] [place] [address] Luis Enrique Sears, PT [address] [place] [address] shoulder [facility] Comment on above: shoulder Start: 06-11-2025 End: 06-11-2025 ambulatory 06/11/2025 1:30 PM EDT Procedure OB/Gynecology [address] [place] [address] [facility], Airconditioning Engineer [facility] [address] [place] [address] : DUB (dysfunctional uterine bleeding) [N93.8]; IUD (intrauterine device) in place [Z97.5] OB/Gynecology Comment on above: : DUB (dysfunctional uterine bleeding) [ N93.8]; IUD (intrauterine device) in place [Z97.5] Start: 2025 End: 2025 Patient encounter procedure 2025 11:40 AM EDT Office Visit [facility] [place] [address] [place] [address] Kelsi Bermudez APRN.SENIOR ACCOUNT CLERK [address] [facility] [place] [address] Decrease medication dosage [facility] [place] Comment on above: Decrease medication dosage Start: 06-01-2025 End: 06-01-2025 Patient encounter procedure 06/01/2025 2:00 PM EDT Office Visit OB/Gynecology [address] [place] [address] Tina Power MD [address] [place] [address] comfirm ? OB/Gynecology Comment on above: comfirm ? Start: 06-01-2025 End: 06-01-2026 US Pelvis PELVIC US [facility] Anc Imaging Routine DUB (dysfunctional uterine bleeding) IUD (intrauterine device) in place Expected: 06/01/2025, Expires: 06/01/2026 [facility] Work Phone: Comment on above: Expected: 06/01/2025, Expires: Start: 05-28-2025 End: 05-28-2025 Patient encounter procedure 05/28/2025 8:30 AM EDT Office Visit Neurology [address] [place] [address] Jaqueline Cardona APRN.SENIOR ACCOUNT CLERK [address] [place] [address] botox Neurology Comment on above: botox Start: 05-21-2025 End: 05-21-2025 Patient encounter procedure 05/21/2025 2:30 PM EDT Office Visit Neurology [address] [place] [address] Jaqueline Cardona, TEE.SENIOR ACCOUNT CLERK [address] [place] [address] botox Neurology Comment on above: botox Start: 05-20-2025 End: 05-20-2025 ambulatory 05/20/2025 1:15 PM EDT OT/PT/Speech Visit [facility] [address] [place] [address] Luis Enrique Sears, PT [address] [place] [address] post op right shoulder [facility] Comment on above: post op right shoulder Start: 05-19-2025 End: 05-19-2025 Patient encounter procedure 05/19/2025 9:00 AM EDT Office Visit [facility] [address] [place] [address] Neto Mcarthur MD [address] [place] [address] PO R SLAP REPAIR (04/01/25) [facility] Comment on above: PO R SLAP REPAIR (04/01/25) Start: 05-13-2025 End: 05-13-2025 ambulatory 05/13/2025 2:00 PM EDT OT/PT/Speech Visit [facility] [address] [place] [address] Jolly Monroy, BEEHIVE KILN SUPERVISOR [address] [place], [place] [phone] post op right shoulder [facility] Comment on above: post op right shoulder Start: 05-05-2025 End: 05-05-2025 ambulatory 05/05/2025 1:30 PM EDT OT/PT/Speech Visit [facility] [address] [place] [address] Jolly Monroy, BEEHIVE KILN SUPERVISOR 1 [place], [place] [phone] post op right shoulder [facility] Comment on above: post op right shoulder Start: 04-28-2025 End: 04-28-2025 ambulatory 04/28/2025 1:30 PM EDT OT/PT/Speech Visit [facility] [address] [place] [address] Luis Enrique Sears, PT [address] [place] [address] post op right shoulder [facility] Comment on above: post op right shoulder Start: 04-23-2025 End: 04-23-2025 ambulatory 04/23/2025 8:30 AM EDT OT/PT/Speech Visit [facility] [address] [place] [address] Luis Enrique Sears, PT [address] [place] [address] post op right shoulder [facility] Comment on above: post op right shoulder Start: 04-20-2025 End: 04-20-2025 ambulatory 04/20/2025 4:00 PM EDT OT/PT/Speech Visit [facility] [address] [place] [address] Jolly Monroy, BEEHIVE KILN SUPERVISOR [address] [place], [place] [phone] post op right shoulder [facility] Comment on above: post op right shoulder Start: 04-14-2025 End: 04-14-2025 Patient encounter procedure 04/14/2025 1:00 PM EDT Office Visit [facility] [address] [place] [address] Neto Mcarthur MD [address] [phone] PO R SLAP REPAIR (04/01/25) [facility] Comment on above: PO R SLAP REPAIR (04/01/25) Start: 04-11-2025 Annual PCP Team Chronic Disease Visit Annual PCP Team Chronic Disease Visit [facility] Start: 04-11-2025 Covid-19 Vaccine ( season) Covid-19 Vaccine ( season) [facility] Comment on above: Postponed from 07/20/2023 (Declined at t his time) Start: 04-06-2025 End: 04-06-2025 ambulatory 04/06/2025 11:00 AM EDT OT/PT/Speech Visit [facility] [address] [place] [address] Luis Enrique Sears, PT [address] [place] [address] post op right shoulder [facility] Comment on above: post op right shoulder Start: 04-03-2025 End: 04-03-2025 Admission to same day surgery center 04/03/2025 11:40 AM EDT - 04/03/2025 12:40 PM EDT Surgery [facility] [address] [facility] [address] [place] [address] Neto Mcarthur MD [address] [place] [address] SHOULDER ARTHROSCOPY W/ REPAIR SLAP LESION (slap repair) [facility] Comment on above: SHOULDER ARTHROSCOPY W/ REPAIR SLAP LESI ON (slap repair) Start: 04-03-2025 End: 04-03-2025 Arthroscopy shoulder surgical repair slap lesion SHOULDER ARTHROSCOPY W/ REPAIR SLAP LESION Superior glenoid labrum lesion of right shoulder, initial encounter 04/03/2025 11:40 AM EDT [facility] Start: 04-03-2025 Subsequent hospital visit by physician [facility] Comment on above: Superior glenoid labrum lesion of right shoulder, initial encounter [S43.431A] Start: 04-01-2025 End: 04-01-2025 Patient encounter procedure 04/01/2025 12:40 PM EDT Office Visit [facility] [place] 1740 [place] [address] Kelsi Bermudez APRN.SENIOR ACCOUNT CLERK [address] [facility] [place] [address] Blood pressure checkup [facility] [place] Comment on above: Blood pressure checkup Start: 04-01-2025 End: 04-01-2025 Patient encounter procedure 04/01/2025 9:20 AM EDT Office Visit Cardiology [address] [address] Hilario Killian MD [address] [place] [address] heart paplpations- was seeing [facility] Comment on above: heart paplpations- was seeing [facility] Start: 03-30-2025 End: 03-30-2025 ambulatory 03/30/2025 1:40 PM EDT PAT Pre Surgical Testing 1 [place], [place] [phone] SHOULDER ARTHROSCOPY W/ REPAIR SLAP LESION (slap repair) [facility] Comment on above: SHOULDER ARTHROSCOPY W/ REPAIR SLAP LESI ON (slap repair) Start: 03-25-2025 End: 03-25-2025 ambulatory 03/25/2025 8:00 AM EDT PAT Pre Surgical Testing [address] [place], [place] [address] SHOULDER ARTHROSCOPY W/ REPAIR SLAP LESION (slap repair) Pre Surgical Testing Comment on above: SHOULDER ARTHROSCOPY W/ REPAIR SLAP LESI ON (slap repair) Start: 03-12-2025 End: 03-12-2025 Admission to same day surgery center 03/12/2025 2:45 PM EDT - 03/12/2025 4:05 PM EDT Surgery [facility] 1 [place] [address] Jaleel Doherty MD [address] [facility] [address] [place] [address] TILT TABLE [facility] Comment on above: TILT TABLE Start: 03-12-2025 End: 03-12-2025 Cardiovascular function eval w/tilt table w/mntr TILT TABLE Palpitations Tachycardia 03/12/2025 2:45 PM EDT [facility] Start: 03-12-2025 Subsequent hospital visit by physician 03/12/2025 2:45 PM EDT Hospital Encounter [facility] [address] [place] [address] Jaleel Doherty MD [address] [place] [phone] (Fax) Palpitations [R00.2], Tachycardia [R00.0] [facility] Comment on above: Palpitations [R00.2], Tachycardia [R00.0 ] Start: 03-12-2025 End: 03-12-2025 Patient encounter procedure 03/12/2025 9:00 AM EDT Office Visit [facility] [place] [address] [facility] [place] [address] Kelsi Bermudez APRN.SENIOR ACCOUNT CLERK [address] [facility] [place] [address] 6 wk follow up (bp, testing) Family [facility] [place] Comment on above: 6 wk follow up (bp, testing) Start: 03-03-2025 End: 03-03-2025 Patient encounter procedure 03/03/2025 10:45 AM EDT Office Visit OB/Gynecology [address] [place] [address] Raya Taveras APRN.CNM [address] [place] [address] Annual OB/Gynecology Comment on above: Annual Start: 02-25-2025 End: 02-25-2025 Admission to same day surgery center 02/25/2025 12:00 PM EDT - 02/25/2025 1:30 PM EDT Surgery [facility] [address] [place] [address] Jaleel Doherty MD [address] [place] [phone] (Fax) TILT TABLE [facility] Comment on above: TILT TABLE Start: 02-25-2025 End: 02-25-2025 Cardiovascular function eval w/tilt table w/mntr TILT TABLE Palpitations Tachycardia 02/25/2025 12:00 PM EDT [facility] Start: 02-25-2025 Subsequent hospital visit by physician 02/25/2025 12:00 PM EDT Hospital Encounter [facility] 1 [place] [address] Jaleel Doherty MD [address] [place] [phone] Palpitations [R00.2], Tachycardia [R00.0] [facility] Comment on above: Palpitations [R00.2], Tachycardia [R00.0 ] Start: 02-16-2025 End: 02-16-2025 Patient encounter procedure 02/16/2025 1:45 PM EDT Office Visit [facility] [address] [place], [place] [id number] Neto Mcarthur MD [address] [place], [place] [phone] FU MRI R SHOULDER [facility] Comment on above: FU MRI R SHOULDER Start: 02-12-2025 End: 02-12-2025 Patient encounter procedure 02/12/2025 8:00 AM EDT Office Visit Vasculary Surgery [address] [place] [address] Hypertension, essential [I10]; Resistant hypertension [I1A.0]; Pedal edema [R60.0]; Brain fog [R41.89]; Malaise [R53.81]; Fatigue, unspecified type [R53.83]; Generalized weakness [R53.1]; Lightheaded [R42] [facility] Comment on above: Hypertension, essential [I10]; Resistant hypertension [I1A.0]; Pedal edema [R60.0]; Brain fog [R41.89]; Malaise [R53.81]; Fatigue, unspecified type [R53.83]; Generalized weakness [R53.1]; Lightheaded [R42] Start: 02-03-2025 End: 02-03-2025 Patient encounter procedure 02/03/2025 3:30 PM EDT Office Visit OB/Gynecology [address] [place] [address] Raya Taveras APRN.CNM [address] [place] [address] Annual OB/Gynecology Comment on above: Annual Start: 02-02-2025 End: 02-02-2025 Patient encounter procedure 02/02/2025 3:15 PM EDT Office Visit Neurology [address] [place] [address] Pari Bazan PA-C [address] [place], [place] [phone] Botox 200u (01/21/2026) 01/26 [facility] Comment on above: Botox 200u (01/21/2026) 01/26 [facility] Start: 01-29-2025 End: 01-29-2025 Patient encounter procedure 01/29/2025 2:30 PM EDT Appointment Radiology [address] [place] [address] Hypertension, essential [I10]; Resistant hypertension [I1A.0]; Pedal edema [R60.0]; Brain fog [R41.89]; Malaise [R53.81]; Fatigue, unspecified type [R53.83]; Generalized weakness [R53.1]; Lightheaded [R42] Radiology Comment on above: Hypertension, essential [I10]; Resistant hypertension [I1A.0]; Pedal edema [R60.0]; Brain fog [R41.89]; Malaise [R53.81]; Fatigue, unspecified type [R53.83]; Generalized weakness [R53.1]; Lightheaded [R42] Start: 01-29-2025 End: 04-30-2025 [facility] Work Phone: Comment on above: Expected: 01/29/2025, Expires: Start: 01-29-2025 End: 01-29-2025 Patient encounter procedure [facility] [place] Comment on above: 2 week follow up bp Hypertension, essent ial [I10]; Resistant hypertension [I1A.0]; Pedal edema [R60.0]; Brain fog [R41.89]; Fatigue, unspecified type [R53.83]; Generalized weakness [R53.1]; Lightheaded [R42] Start: 01-23-2025 End: 01-23-2025 Patient encounter procedure 01/23/2025 9:00 AM EST Office Visit Family [facility] [place] [address] [place] [address] Kelsi Bermudez APRN.SENIOR ACCOUNT CLERK [address] [place] [address] 1 mp follow up (bp/med f/u) [facility] [place] Comment on above: 1 mp follow up (bp/med f/u) Start: 01-20-2025 End: 01-20-2025 Admission to same day surgery center 01/20/2025 7:30 AM EST - 01/20/2025 8:00 AM EST [facility] [place] [address] Chance Donnelly, DO [address] [place] [address] INJECTION SHOULDER ARTHROGRAPHY OR ENHANCED CT/MRI SHOULDER ARTHROGRAPHY [facility] Comment on above: INJECTION SHOULDER ARTHROGRAPHY OR ENHAN RONDA CT/MRI SHOULDER ARTHROGRAPHY Start: 01-20-2025 End: 01-20-2025 Injection shoulder arthrography/ ct/mri arthg INJECTION SHOULDER ARTHROGRAPHY OR ENHANCED CT/MRI SHOULDER ARTHROGRAPHY Superior glenoid labrum lesion of right shoulder, initial encounter 01/20/2025 7:30 AM EST [facility] Start: 01-20-2025 Subsequent hospital visit by physician 01/20/2025 7:30 AM EST Hospital Encounter [facility] 1 [place] [address] Chance Donnelly, DO [address] [place] [address] Superior glenoid labrum lesion of right shoulder, initial encounter [S43.431A] [facility] Comment on above: Superior glenoid labrum lesion of right shoulder, initial encounter [S43.431A] Start: 01-20-2025 End: 01-20-2025 Patient encounter procedure 01/20/2025 7:20 AM EST Appointment [facility] [address] [place] [address] Superior glenoid labrum lesion of right shoulder, initial encounter [S43.431A] [facility] Comment on above: Superior glenoid labrum lesion of right shoulder, initial encounter [S43.431A] Start: 01-16-2025 End: 01-16-2025 Patient encounter procedure 01/16/2025 2:30 PM EST Appointment Radiology [address] [place] [address] Hypertension, essential [I10]; Resistant hypertension [I1A.0]; Pedal edema [R60.0]; Brain fog [R41.89]; Malaise [R53.81]; Fatigue, unspecified type [R53.83]; Generalized weakness [R53.1]; Lightheaded [R42] Radiology Comment on above: Hypertension, essential [I10]; Resistant hypertension [I1A.0]; Pedal edema [R60.0]; Brain fog [R41.89]; Malaise [R53.81]; Fatigue, unspecified type [R53.83]; Generalized weakness [R53.1]; Lightheaded [R42] Start: 01-12-2025 End: 01-12-2025 Patient encounter procedure 01/12/2025 8:00 AM EST Office Visit [facility] [address] [place] [address] Neto Mcarthur MD [address] [address] FU MRI R SHOULDER [facility] Comment on above: FU MRI R SHOULDER Start: 01-05-2025 End: 01-05-2025 Patient encounter procedure 01/05/2025 1:30 PM EST Office Visit OB/Gynecology [address] [place] [address] Raya Taveras APRN.CNM [address] [place] [address] IUD insert OB/Gynecology Comment on above: IUD insert Start: 01-05-2025 End: 01-05-2025 Admission to same day surgery center 01/05/2025 7:30 AM EST - 01/05/2025 8:00 AM EST Surgery [facility] 1 [facility] [place] [address] [place] [address] [address] [address] INJECTION SHOULDER ARTHROGRAPHY OR ENHANCED CT/MRI SHOULDER ARTHROGRAPHY [facility] Comment on above: INJECTION SHOULDER ARTHROGRAPHY OR ENHAN RONDA CT/MRI SHOULDER ARTHROGRAPHY Start: 01-05-2025 End: 01-05-2025 Injection shoulder arthrography/ ct/mri arthg INJECTION SHOULDER ARTHROGRAPHY OR ENHANCED CT/MRI SHOULDER ARTHROGRAPHY Superior glenoid labrum lesion of right shoulder, initial encounter 01/05/2025 7:30 AM EST [facility] Start: 01-05-2025 Subsequent hospital visit by physician 01/05/2025 7:30 AM EST Hospital Encounter [facility] 1 [facility] [place] [address] Danilo Harris MD, MD [address] [place] [address] Superior glenoid labrum lesion of right shoulder, initial encounter [S43.431A] [facility] Comment on above: Superior glenoid labrum lesion of right shoulder, initial encounter [S43.431A] Start: 01-05-2025 End: 01-05-2025 Patient encounter procedure [facility] Comment on above: Superior glenoid labrum lesion of right shoulder, initial encounter [S43.431A] Start: 01-01-2025 End: 01-01-2025 ambulatory 01/01/2025 10:00 AM EST Results Only [place] [address] [facility] [address] [address] Breakthrough bleeding on control pills [N92.1] [place] [address] [facility] Comment on above: Breakthrough bleeding on control p ills [N92.1] Start: 12-26-2024 End: 12-26-2024 Patient encounter procedure 12/26/2024 9:00 AM EST Office Visit [facility] [place] [address] [place], [place] [phone] Kelsi Bermudez APRN.SENIOR ACCOUNT CLERK [address] [place], [place] [phone] 1 month Family [facility] [place] Comment on above: 1 month Start: 12-22-2024 End: 12-22-2024 Patient encounter procedure 12/22/2024 8:30 AM EST Office Visit [facility] [address] [place], [place] [phone] Neto Mcarthur MD [address] [phone] new pt right shoulder rotator cuff [facility] Comment on above: new pt right shoulder rotator cuff Start: 12-17-2024 End: 03-18-2025 VON [facility] DX PNL (LIMITED) [facility] DX PNL (LIMITED) Lab Routine Breakthrough bleeding on control pills Expected: 12/17/2024, Expires: 03/18/2025 [facility] Work Phone: Comment on above: Expected: 12/17/2024, Expires: Start: 12-17-2024 End: 12-17-2024 Patient encounter procedure 12/17/2024 1:45 PM EST Office Visit OB/Gynecology [address] [place], [place] [phone] Raya Taveras APRN.[facility] [address] [place] [address] Insulin resistance [E88.819] OB/Gynecology Comment on above: Insulin resistance [E88.819] Start: 12-10-2024 End: 12-10-2024 Patient encounter procedure 12/10/2024 2:30 PM EST Office Visit Family Medicine [place] [address] [place] [address] Federico Monroy, V, DO [address] [place] [address] follow up right shoulder, completed PT, continuing pain in shoulder [facility] [place] Comment on above: follow up right shoulder, completed PT, continuing pain in shoulder Start: 12-02-2024 End: 12-02-2024 Manual pelvic examination 12/02/2024 10:00 AM EST Procedure OB/Gynecology [address] [place] [address] Remote, Airconditioning Engineer [employer] [address] [place] [address] Pelvic ultrasound - moved from 11/27 OB/Gynecology Comment on above: Pelvic ultrasound - moved from 11/27 Start: 11-29-2024 Annual PCP Team Chronic Disease Visit Annual PCP Team Chronic Disease Visit [facility] Start: 11-27-2024 End: 11-27-2024 ambulatory 11/27/2024 9:30 AM EST OT/PT/Speech Visit [facility] [address] [place] [address] Raya Ambriz, PT SHOULDER PAIN [facility] Comment on above: SHOULDER PAIN Start: 11-27-2024 End: 11-27-2024 Manual pelvic examination 11/27/2024 8:00 AM EST Procedure OB/Gynecology [address] [place] [address] Remote, Airconditioning Engineer [employer] [address] [place] [address] Pelvic ultrasound OB/Gynecology Comment on above: Pelvic ultrasound Start: 11-25-2024 End: 02-24-2025 17-Hydroxyprogesterone [Mass/volume] in Serum or Plasma [facility] Comment on above: Expected: 11/25/2024, Expires: Start: 11-25-2024 End: 02-24-2025 Comprehensive metabolic 2000 panel - Serum or Plasma [facility] Comment on above: Expected: 11/25/2024, Expires: Start: 11-25-2024 End: 02-24-2025 DHEA-S BLD [facility] Comment on above: Expected: 11/25/2024, Expires: Start: 11-25-2024 End: 02-24-2025 Ferritin [Mass/volume] in Serum or Plasma [facility] Comment on above: Expected: 11/25/2024, Expires: Start: 11-25-2024 End: 02-24-2025 Insulin [Units/volume] in Serum or Plasma [facility] Work Phone: Comment on above: Expected: 11/25/2024, Expires: Start: 11-25-2024 End: 02-24-2025 Iron and Iron binding capacity panel - Serum or Plasma [facility] Comment on above: Expected: 11/25/2024, Expires: Start: 11-25-2024 End: 02-24-2025 Prolactin [Mass/volume] in Serum or Plasma [facility] Comment on above: Expected: 11/25/2024, Expires: Start: 11-25-2024 End: 02-24-2025 TESTOSTERONE, FREE AND TOTAL, BY EQUILIBRIUM ULTRAFILTRATION MASS SPECTROMETRY [facility] Comment on above: Expected: 11/25/2024, Expires: Start: 11-25-2024 End: 02-24-2025 Thyrotropin [Units/volume] in Serum or Plasma [facility] Comment on above: Expected: 11/25/2024, Expires: Start: 11-25-2024 End: 02-24-2025 Thyroxine (T4) free [Mass/volume] in Serum or Plasma [facility] Comment on above: Expected: 11/25/2024, Expires: Start: 11-25-2024 End: 02-24-2025 Triiodothyronine (T3) [Mass/volume] in Serum or Plasma [facility] Comment on above: Expected: 11/25/2024, Expires: Start: 11-25-2024 End: 11-25-2024 ambulatory 11/25/2024 10:30 AM EST OT/PT/Speech Visit [facility] [address] [place] [address] Raya Ambriz PT SHOULDER PAIN [facility] Comment on above: SHOULDER PAIN Start: 11-25-2024 End: 11-25-2024 Patient encounter procedure 11/25/2024 9:40 AM EST Office Visit [facility] [place] [address] [facility] [place] [address] Kelsi Bermudez APRN.SENIOR ACCOUNT CLERK [address] [facility] [place] [address] Follow up for blood pressure [facility] Comment on above: Follow up for blood pressure Start: 11-20-2024 End: 11-20-2025 US Pelvis PELVIC US [facility] Anc Imaging Routine Abnormal uterine bleeding (AUB) Expected: 11/20/2024, Expires: 11/20/2025 [facility] Work Phone: Comment on above: Expected: 11/20/2024, Expires: Start: 11-10-2024 End: 11-10-2024 OT/PT/Speech Visit 11/10/2024 10:15 AM EST OT/PT/Speech Visit [facility] [address] [place] [address] Raya Ambriz, PT Disorder of right rotator cuff [M67.911 (ICD-10-CM)] [facility] Comment on above: Disorder of right rotator cuff [M67.911 (ICD-10-CM)] Start: 11-05-2024 End: 11-05-2024 OT/PT/Speech Visit 11/05/2024 9:45 AM EST OT/PT/Speech Visit [facility] [address] [place] [address] Raya Ambriz, PT Disorder of right rotator cuff [M67.911 (ICD-10-CM)] [facility] Comment on above: Disorder of right rotator cuff [M67.911 (ICD-10-CM)] Start: 11-04-2024 End: 11-04-2024 Patient encounter procedure 11/04/2024 9:00 AM EST Office Visit [facility] [place] [address] [facility] [place] [place] [address] Kelsi Bermudez APRN.SENIOR ACCOUNT CLERK [address] [facility] [place] [address] 2 week follow up [facility] [place] Comment on above: 2 week follow up Start: 10-28-2024 End: 10-28-2024 OT/PT/Speech Visit 10/28/2024 9:30 AM EST OT/PT/Speech Visit [facility] [address] [place] [address] Maria R Scott, BEEHIVE KILN SUPERVISOR [address] [place] [address] Disorder of right rotator cuff [M67.911 (ICD-10-CM)] [facility] Comment on above: Disorder of right rotator cuff [M67.911 (ICD-10-CM)] Start: 10-21-2024 End: 10-21-2024 OT/PT/Speech Visit 10/21/2024 10:30 AM EST OT/PT/Speech Visit [facility] [address] [place] [address] Raya Ambriz, PT Disorder of right rotator cuff [M67.911 (ICD-10-CM)] [facility] Comment on above: Disorder of right rotator cuff [M67.911 (ICD-10-CM)] Start: 10-14-2024 End: 10-14-2024 OT/PT/Speech Visit 10/14/2024 6:00 PM EST OT/PT/Speech Visit [facility] [address] [place] [address] Raya Ambriz, PT Disorder of right rotator cuff [M67.911 (ICD-10-CM)] [facility] Comment on above: Disorder of right rotator cuff [M67.911 (ICD-10-CM)] Start: 10-04-2024 Annual PCP Team Chronic Disease Visit Annual PCP Team Chronic Disease Visit [facility] Start: 10-01-2024 End: 10-01-2024 OT/PT/Speech Visit 10/01/2024 9:45 AM EST OT/PT/Speech Visit [facility] [address] [place] [address] Raya Ambriz, PT Disorder of right rotator cuff [M67.911] [facility] Comment on above: Disorder of right rotator cuff [M67.911] Start: 09-24-2024 End: 09-24-2024 OT/PT/Speech Visit 09/24/2024 2:45 PM EST OT/PT/Speech Visit [facility] [address] [place] [address] Nicole Scotth, BEEHIVE KILN SUPERVISOR [address] [place] [address] Disorder of right rotator cuff [M67.911] [facility] Comment on above: Disorder of right rotator cuff [M67.911] Start: 09-20-2024 Annual PCP Team Chronic Disease Visit Annual PCP Team Chronic Disease Visit [facility] Start: 09-17-2024 End: 09-17-2024 OT/PT/Speech Visit 09/17/2024 9:45 AM EDT OT/PT/Speech Visit [facility] [address] [place] [address] Raya Ambriz, PT Disorder of right rotator cuff [M67.911] [facility] Comment on above: Disorder of right rotator cuff [M67.911] Start: 09-12-2024 Chlamydia Screening (18-24) Chlamydia Screening (18-24) [facility] Start: 09-12-2024 GC (Gonorrhea) Screening (18-24) GC (Gonorrhea) Screening (18-24) [facility] Start: 09-12-2024 Screening for Chlamydia trachomatis Chlamydia Screening (18-24) [facility] Start: 09-09-2024 End: 09-09-2024 OT/PT/Speech Visit 09/09/2024 11:15 AM EDT OT/PT/Speech Visit [facility] [address] [place] [address] Raya Ambriz, PT Disorder of right rotator cuff [M67.911] [facility] Comment on above: Disorder of right rotator cuff [M67.911] Start: 09-02-2024 End: 09-02-2024 OT/PT/Speech Visit 09/02/2024 9:45 AM EDT OT/PT/Speech Visit [facility] [address] [place] [address] Raya Ambriz, PT Disorder of right rotator cuff [M67.911] [facility] Comment on above: Disorder of right rotator cuff [M67.911] Start: 08-29-2024 End: 08-29-2024 Patient encounter procedure 08/29/2024 10:30 AM EDT Office Visit [facility] [place] [address] [place] [address] Federico Monroy, V, DO [address] [facility] [place] [address] right shoulder follow up - wants injection [facility] [place] Comment on above: right shoulder follow up - wants injecti on Start: 08-11-2024 End: 08-11-2024 Patient encounter procedure 08/11/2024 11:10 AM EDT Appointment Radiology [address] [place] [address] 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] Radiology Comment on above: Instability of right shoulder joint [M25 .311] Start: 08-01-2024 End: 08-01-2024 Patient encounter procedure 08/01/2024 11:00 AM EDT Office Visit [facility] [address] [place] [address] Federico Monroy V, DO [address] [place] [address] rt shoulder pain [facility] Comment on above: rt shoulder pain Start: 07-31-2024 End: 07-31-2024 Patient encounter procedure Neurology Comment on above: botox botox // auth pendin g 07/24 CC Start: 07-29-2024 End: 07-29-2024 ambulatory 07/29/2024 10:00 AM EDT OT/PT/Speech Visit Speech [facility] [address] [place] [address] Franco Tao, CCC-BUHR MILL OPERATOR [address] [place] [address] *60 visits thru 11/18/24* Speech Therapy [facility] Comment on above: *60 visits thru 11/18/24* Start: 07-22-2024 End: 07-22-2024 ambulatory 07/22/2024 10:00 AM EDT OT/PT/Speech Visit Speech [facility] [address] [place] [address] Franco Tao, CCC-BUHR MILL OPERATOR [address] [place] [address] *60 visits thru 11/18/24* Speech Therapy [facility] Comment on above: *60 visits thru 11/18/24* Start: 07-20-2024 Covid-19 Vaccine ( season) Covid-19 Vaccine () [facility] Start: 07-20-2024 Covid-19 Vaccine ( season) Covid-19 Vaccine ( season) [facility] Start: 07-20-2024 Influenza vaccination Influenza Vaccine (#1) [facility] Start: 07-15-2024 End: 07-15-2024 ambulatory 07/15/2024 10:00 AM EDT OT/PT/Speech Visit Speech [facility] [address] [place] [address] Franco Tao, CCC-BUHR MILL OPERATOR [address] [place] [address] *60 visits thru 11/18/24* Speech Therapy [facility] Comment on above: *60 visits thru 11/18/24* Start: 07-10-2024 End: 07-10-2024 ambulatory 07/10/2024 10:00 AM EDT OT/PT/Speech Visit Speech [facility] [address] [place] [address] Franco Tao, CCC-BUHR MILL OPERATOR [address] [place] [address] *60 visits thru 11/18/24* Speech Therapy [facility] Comment on above: *60 visits thru 11/18/24* Start: 07-02-2024 End: 07-02-2024 Patient encounter procedure 07/02/2024 8:40 AM EDT Office Visit Family Medicine [place] [address] [place] [address] Kelsi Bermudez APRN.SENIOR ACCOUNT CLERK [address] [place], [place] [address] 2-3 week b/ check [facility] [place] Comment on above: 2-3 week b/ check Start: 07-01-2024 End: 07-01-2024 ambulatory 07/01/2024 4:15 PM EDT OT/PT/Speech Visit Speech [facility] [address] [place] [address] Franco Tao, CCC-BUHR MILL OPERATOR [address] [place] [address] *60 visits thru 11/18/24* Speech [facility] Comment on above: *60 visits thru 11/18/24* Start: 06-24-2024 End: 06-24-2024 ambulatory 06/24/2024 4:15 PM EDT OT/PT/Speech Visit Speech Therapy [facility] [address] [place] [address] Franco Tao, [facility]-BUHR MILL OPERATOR [address] [place] [address] *60 visits thru 11/18/24* Speech Therapy [facility] Comment on above: *60 visits thru 11/18/24* Start: 2024 Screening for malignant neoplasm of cervix Cervical Cancer Screening [facility] Start: 05-06-2024 End: 05-06-2024 Patient encounter procedure 05/06/2024 8:00 AM EDT Office Visit OB/Gynecology [address] [place] [address] Emely Handy APRN.SENIOR ACCOUNT CLERK [address] [place] [address] Irregular periods OB/Gynecology Comment on above: Irregular periods Start: 05-05-2024 End: 05-05-2024 ambulatory Speech Therapy [facility] Comment on above: Post concussive encephalopathy [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.81] *60 visits thru 10/21 12/12* Start: 04-25-2024 ANNUAL PCP TEAM CHRONIC DISEASE VISIT ANNUAL PCP TEAM CHRONIC DISEASE VISIT [facility] Start: 04-23-2024 End: 04-23-2024 ambulatory 04/23/2024 1:00 PM EDT [facility] Neurology [facility] [address] Te Kerns, DO [address] [place] [address] 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] Neurology Comment on above: Intractable chronic migraine without aur a and without status migrainosus [G43.719] Start: 04-11-2024 End: 07-11-2024 Heterophile Ab [Presence] in Serum by Latex agglutination [facility] Work Phone: Comment on above: Expected: 04/11/2024, Expires: Start: 03-28-2024 ANNUAL PCP TEAM CHRONIC DISEASE VISIT ANNUAL PCP TEAM CHRONIC DISEASE VISIT [facility] Start: 01-26-2024 ANNUAL PCP TEAM CHRONIC DISEASE VISIT ANNUAL PCP TEAM CHRONIC DISEASE VISIT [facility] Start: 11-19-2023 Behavioral Health Screening Behavioral Health Screening [facility] Start: 11-19-2023 Depression Assessment Depression Assessment [facility] Start: 11-06-2023 ANNUAL PCP TEAM CHRONIC DISEASE VISIT ANNUAL PCP TEAM CHRONIC DISEASE VISIT [facility] Start: 10-09-2023 ANNUAL PCP TEAM CHRONIC DISEASE VISIT ANNUAL PCP TEAM CHRONIC DISEASE VISIT [facility] Start: 10-04-2023 End: 01-03-2024 25-hydroxyvitamin D3 [Mass/volume] in Serum or Plasma VITAMIN D 25 HYDROXY Lab Routine Shaky Lightheaded Hypertension, essential Tachycardia Palpitations Expected: 10/04/2023, Expires: 01/03/2024 [facility] Work Phone: Comment on above: Expected: 10/04/2023, Expires: 4 Start: 10-04-2023 End: 01-03-2024 CBC panel - Blood by Automated count CBC Lab Routine Shaky Lightheaded Hypertension, essential Tachycardia Palpitations Expected: 10/04/2023, Expires: 01/03/2024 [facility] Work Phone: Comment on above: Expected: 10/04/2023, Expires: Start: 10-04-2023 End: 01-03-2024 Cobalamin (Vitamin B12) [Mass/volume] in Serum or Plasma VITAMIN B12 BLOOD Lab Routine Shaky Lightheaded Hypertension, essential Tachycardia Palpitations Expected: 10/04/2023, Expires: 01/03/2024 [facility] Work Phone: Comment on above: Expected: 10/04/2023, Expires: 4 Start: 10-04-2023 End: 01-03-2024 Comprehensive metabolic 2000 panel - Serum or Plasma COMP METABOLIC PANEL Lab Routine Shaky Lightheaded Hypertension, essential Tachycardia Palpitations Expected: 10/04/2023, Expires: 01/03/2024 [facility] Work Phone: Comment on above: Expected: 10/04/2023, Expires: Start: 10-04-2023 End: 01-03-2024 Ferritin [Mass/volume] in Serum or Plasma FERRITIN BLD Lab Routine Shaky Lightheaded Hypertension, essential Tachycardia Palpitations Expected: 10/04/2023, Expires: 01/03/2024 [facility] Work Phone: Comment on above: Expected: 10/04/2023, Expires: 4 Start: 10-04-2023 End: 01-03-2024 Hemoglobin A1c in Blood HGB A1C Lab Routine Shaky Lightheaded Hypertension, essential Tachycardia Palpitations Expected: 10/04/2023, Expires: 01/03/2024 [facility] Work Phone: Comment on above: Expected: 10/04/2023, Expires: Start: 10-04-2023 End: 01-03-2024 Insulin [Units/volume] in Serum or Plasma INSULIN ASSAY BLOOD Lab Routine Shaky Lightheaded Hypertension, essential Tachycardia Palpitations Expected: 10/04/2023, Expires: 01/03/2024 [facility] Work Phone: Comment on above: Expected: 10/04/2023, Expires: Start: 10-04-2023 End: 01-03-2024 Iron and Iron binding capacity panel - Serum or Plasma IRON + TIBC Lab Routine Shaky Lightheaded Hypertension, essential Tachycardia Palpitations Expected: 10/04/2023, Expires: 01/03/2024 [facility] Work Phone: Comment on above: Expected: 10/04/2023, Expires: 4 Start: 07-28-2023 ANNUAL PCP TEAM CHRONIC DISEASE VISIT ANNUAL PCP TEAM CHRONIC DISEASE VISIT [facility] Start: 07-20-2023 Covid-19 Vaccine () Covid-19 Vaccine () [facility] Start: 07-20-2023 Influenza vaccination [facility] Start: 04-25-2023 End: 06-25-2023 25-hydroxyvitamin D3 [Mass/volume] in Serum or Plasma [facility] Work Phone: Comment on above: Expected: 04/25/2023, Expires: Start: 04-25-2023 End: 06-25-2023 ALDOSTERONE/DIRECT RENIN RATIO [facility] Work Phone: Comment on above: Expected: 04/25/2023, Expires: 3 Start: 04-25-2023 End: 06-25-2023 Cobalamin (Vitamin B12) [Mass/volume] in Serum or Plasma [facility] Work Phone: Comment on above: Expected: 04/25/2023, Expires: Start: 04-25-2023 End: 06-25-2023 Comprehensive metabolic 2000 panel - Serum or Plasma [facility] Work Phone: Comment on above: Expected: 04/25/2023, Expires: 3 Start: 04-25-2023 End: 06-25-2023 Cortisol [Mass/volume] in Serum or Plasma [facility] Work Phone: Comment on above: Expected: 04/25/2023, Expires: Start: 04-25-2023 End: 06-25-2023 Iron and Iron binding capacity panel - Serum or Plasma [facility] Work Phone: Comment on above: Expected: 04/25/2023, Expires: 3 Start: 04-25-2023 End: 06-25-2023 Thyrotropin [Units/volume] in Serum or Plasma [facility] Work Phone: Comment on above: Expected: 04/25/2023, Expires: 3 Start: 04-25-2023 End: 06-25-2023 Thyroxine (T4) free [Mass/volume] in Serum or Plasma [facility] Work Phone: Comment on above: Expected: 04/25/2023, Expires: 3 Start: 04-25-2023 End: 06-25-2023 Triiodothyronine (T3) Free [Mass/volume] in Serum or Plasma [facility] Work Phone: Comment on above: Expected: 04/25/2023, Expires: 3 Start: 04-25-2023 End: 06-25-2023 Urinalysis complete panel - Urine [facility] Work Phone: Comment on above: Expected: 04/25/2023, Expires: 3 Start: 03-28-2023 End: 05-28-2023 Thyrotropin [Units/volume] in Serum or Plasma [facility] Work Phone: Comment on above: Expected: 03/28/2023, Expires: 3 Start: 12-22-2022 ANNUAL PCP TEAM CHRONIC DISEASE VISIT ANNUAL PCP TEAM CHRONIC DISEASE VISIT [facility] Start: 11-19-2022 DEPRESSION ASSESSMENT DEPRESSION ASSESSMENT [facility] Start: 10-10-2022 Adult depression screening assessment DEPRESSION SCREENING [facility] Start: 09-28-2022 End: 11-28-2022 Cobalamin (Vitamin B12) [Mass/volume] in Serum or Plasma VITAMIN B12 BLOOD Lab Routine H/O multiple concussions Expected: 09/28/2022, Expires: 11/28/2022 [facility] Work Phone: Comment on above: Expected: 09/28/2022, Expires: 3 Start: 09-28-2022 End: 11-28-2022 Thyrotropin [Units/volume] in Serum or Plasma TSH BLD Lab Routine H/O multiple concussions Expected: 09/28/2022, Expires: 11/28/2022 [facility] Work Phone: Comment on above: Expected: 09/28/2022, Expires: 3 Start: 08-26-2022 COVID-19 VACCINE (#1) COVID-19 VACCINE (#1) [facility] Comment on above: Postponed from 2003 (Declined at t his time) Start: 08-26-2022 COVID-19 VACCINE (1) COVID-19 VACCINE (1) [facility] Comment on above: Postponed from 2008 (Declined at t his time) Start: 07-28-2022 End: 09-27-2022 25-hydroxyvitamin D3 [Mass/volume] in Serum or Plasma [facility] Work Phone: Comment on above: Expected: 07/28/2022, Expires: 2 Start: 07-28-2022 End: 09-27-2022 CBC panel - Blood by Automated count [facility] Work Phone: Comment on above: Expected: 07/28/2022, Expires: 2 Start: 07-28-2022 End: 09-27-2022 Cobalamin (Vitamin B12) [Mass/volume] in Serum or Plasma [facility] Work Phone: Comment on above: Expected: 07/28/2022, Expires: 2 Start: 07-28-2022 End: 09-27-2022 Comprehensive metabolic 2000 panel - Serum or Plasma [facility] Work Phone: Comment on above: Expected: 07/28/2022, Expires: 2 Start: 07-28-2022 End: 09-27-2022 Ferritin [Mass/volume] in Serum or Plasma [facility] Work Phone: Comment on above: Expected: 07/28/2022, Expires: 2 Start: 07-28-2022 End: 09-27-2022 Iron and Iron binding capacity panel - Serum or Plasma [facility] Work Phone: Comment on above: Expected: 07/28/2022, Expires: 2 Start: 07-28-2022 End: 09-27-2022 Thyroglobulin Ab [Units/volume] in Serum or Plasma [facility] Work Phone: Comment on above: Expected: 07/28/2022, Expires: 2 Start: 07-28-2022 End: 09-27-2022 THYROID PEROXIDASE ANTIBODY BLOOD [facility] Work Phone: Comment on above: Expected: 07/28/2022, Expires: 2 Start: 07-28-2022 End: 09-27-2022 Thyrotropin [Units/volume] in Serum or Plasma [facility] Work Phone: Comment on above: Expected: 07/28/2022, Expires: 2 Start: 07-28-2022 End: 09-27-2022 Thyroxine (T4) free [Mass/volume] in Serum or Plasma [facility] Work Phone: Comment on above: Expected: 07/28/2022, Expires: 2 Start: 07-28-2022 End: 09-27-2022 Triiodothyronine (T3) [Mass/volume] in Serum or Plasma [facility] Work Phone: Comment on above: Expected: 07/28/2022, Expires: 2 Start: 11-19-2021 DEPRESSION ASSESSMENT DEPRESSION ASSESSMENT [facility] Start: 2021 Anxiety Screening Anxiety Screening [facility] Start: 2021 BP Controlled (<130/80) BP Controlled (<130/80) [facility] Start: 2021 CHLAMYDIA SCREENING () CHLAMYDIA SCREENING (18-) [facility] Start: 2021 Depression Screening Depression Screening [facility] Start: 2021 GC (GONORRHEA) SCREENING (18-) GC (GONORRHEA) SCREENING (18-) [facility] Start: 2021 HEPATITIS C SCREENING HEPATITIS C SCREENING [facility] Start: 2021 Hepatitis C screening Hepatitis C Screening [facility] Start: 2021 HIV SCREENING HIV SCREENING [facility] Start: 2021 HIV screening HIV Screening [facility] Start: 2021 SPIROMETRY SPIROMETRY [facility] Start: 2021 zzBP Controlled (<130/80) (Retired) zzBP Controlled (<130/80) (Retired) [facility] Start: 2021 zzSpirometry (Retired) zzSpirometry (Retired) [facility] Start: 2019 Meningococcal B Vaccine (1 of 2 - Standard) Meningococcal B Vaccine (1 of 2 - Standard) [facility] Start: 2019 Meningococcal B Vaccine: Consider Based On Risk (1 of 2 - Patient Seeks Protection) Meningococcal B Vaccine: Consider Based On Risk (1 of 2 - Patient Seeks Protection) [facility] Start: 2019 MENINGOCOCCAL B: Consider based on risk (1 of 2 - Patient Seeks Protection) MENINGOCOCCAL B: Consider based on risk (1 of 2 - Patient Seeks Protection) [facility] Start: 10-02-2018 End: 10-02-2018 Appointment Appointment [facility] Work Phone: Start: 10-02-2018 End: 10-02-2018 Radiologic examination knee 3 views XR [id number] [facility] Work Phone: Start: 2017 PEDS TO ADULT TRANSITION ANNUAL ASSESSMENT PEDS TO ADULT TRANSITION ANNUAL ASSESSMENT [facility] Start: 2015 PEDS TO ADULT TRANSITION INITIAL DISCUSSION PEDS TO ADULT TRANSITION INITIAL DISCUSSION [facility] Start: 2013 MENINGOCOCCAL B: Consider based on risk (1 of 2 - Risk Bexsero 2-dose series) MENINGOCOCCAL B: Consider based on risk (1 of 2 - Risk Bexsero 2-dose series) [facility] Start: 2009 PNEUMOCOCCAL (1 - PCV) PNEUMOCOCCAL (1 - PCV) [facility] Start: 2009 [facility] Start: 2007 ASTHMA CONTROL TEST ASTHMA CONTROL TEST [facility] Start: 2005 ASTHMA ACTION PLAN ASTHMA ACTION PLAN [facility] Start: 2003 COVID-19 VACCINE (#1) COVID-19 VACCINE (#1) [facility] ACCUCHECK B/O ACCUCHECK B/O La b Routine Shaky Lightheaded Ordered: 10/04/2023 [facility] Work Phone: Comment on above: Ordered: 10/04/2023 ALERE STREP A TEST (AG) ALERE ST REP A TEST (AG) Lab Routine Sore throat Ordered: 03/31/2024 [facility] Work Phone: Comment on above: Ordered: 03/31/2024 Arthroscopy shoulder surgical repair slap lesion SHOULDER ARTHROSCOPY W/ REPAIR SLAP LESION Superior glenoid labrum lesion of right shoulder, initial encounter [facility] Bacteria identified in Urine by Culture URINE CULTURE Microbiology Routine Urinary frequency 09/12/2023 7:16 PM EDT [facility] Work Phone: Bacteria identified in Urine by Culture BACTERIAL CULTURE, URINE Microbiology Routine Urinary frequency Suprapubic abdominal pain Flank pain 05/27/2025 6:23 PM EDT [facility] Work Phone: BACTERIAL VAGINOSIS NAAT BACTERI AL VAGINOSIS NAAT Lab Routine Dysuria 09/12/2023 6:16 PM EDT [facility] Work Phone: ADÁN/TRICHOMONAS NAAT ADÁN /TRICHOMONAS NAAT Lab Routine Dysuria 09/12/2023 6:16 PM EDT [facility] Work Phone: Cardiovascular funct ion eval w/tilt table w/mntr TILT TABLE EVALUATION Cardiology Routine Tachycardia Hypertension, essential Ordered: 04/25/2023 [facility] Work Phone: Comment on above: Ordered: 04/25/2023 Cardiovascular funct ion eval w/tilt table w/mntr TILT TABLE EVALUATION Cardiology Routine Hypertension, essential Palpitations Tachycardia Fatigue, unspecified type Dizziness Ordered: 01/29/2025 [facility] Comment on above: Ordered: 01/29/2025 Chlamydia trachomatis+Neisseria gonorrhoeae DNA [Presence] in Unspecified specimen by MICHAEL with probe detection GONORRHEA/CHLAMYDIA NAAT Lab Routine Urinary frequency Dysuria 09/12/2023 6:16 PM EDT [facility] Work Phone: Chlamydia trachomatis+Neisseria gonorrhoeae DNA [Presence] in Unspecified specimen by MICHAEL with probe detection GONORRHEA/CHLAMYDIA NAAT Lab Routine Screening for STDs (sexually transmitted diseases) 01/05/2025 3:16 PM EST [facility] Work Phone: Coagulation factor V III activity actual/normal in Platelet poor plasma by Coagulation assay [facility] COVID & INFLUENZA A/ B & RSV PCR, ROUTINE COVID & INFLUENZA A/B & RSV PCR, ROUTINE Microbiology Routine Pedal edema Brain fog Malaise Fatigue, unspecified type Generalized weakness Lightheaded Exposure to influenza Ordered: 01/15/2025 [facility] Comment on above: Ordered: 01/15/2025 End: 03-28-2024 Echocardiography ECHO Cardiology Routine Palpitations Elevated blood pressure reading without diagnosis of hypertension 1 Occurrences starting 03/28/2023 until 03/28/2024 [facility] Work Phone: Comment on above: 1 Occurrences starting 03/28/2023 until 03/28/2024 End: 01-15-2026 Echocardiography ECHO Cardiology Routine Hypertension, essential Resistant hypertension Pedal edema Brain fog Fatigue, unspecified type Generalized weakness Lightheaded 1 Occurrences starting 01/15/2025 until 01/15/2026 [facility] Comment on above: 1 Occurrences starting 01/15/2025 until 01/15/2026 End: 09-28-2023 EPIL EEG ROUTINE EPIL EEG ROUTINE NEUROLOGY Routine H/O multiple concussions 1 Occurrences starting 09/28/2022 until 09/28/2023 [facility] Work Phone: Comment on above: 1 Occurrences starting 09/28/2022 until 09/28/2023 Image name Hand [PhenX] [facility] Insertion intrauteri ne device iud INSERT INTRAUTERINE DEVICE Procedures Routine control counseling Ordered: 12/17/2024 [facility] Comment on above: Ordered: 12/17/[address] [facility] End: 01-21-2026 MR Shoulder - right Arthrogram MRI ARTHROGRAM SHOULDER RIGHT Radiology Routine Superior glenoid labrum lesion of right shoulder, initial encounter 1 Occurrences starting 12/22/2024 until 01/21/2026 [facility] Comment on above: 1 Occurrences starting 12/22/2024 until 01/21/2026 End: 08-31-2025 MR Shoulder - right WO contrast MRI SHOULDER WO IVCON RIGHT Radiology Routine Instability of right shoulder joint 1 Occurrences starting 08/01/2024 until 08/31/2025 [facility] Work Phone: Comment on above: 1 Occurrences starting 08/01/2024 until 08/31/2025 End: 04-24-2024 Mri brain brain stem w/o w/contrast material MRI BRAIN WO/W IVCON Radiology Routine Sensorineural hearing loss (SNHL) of left ear with unrestricted hearing of right ear 1 Occurrences starting 03/26/2023 until 04/24/2024 [facility] Work Phone: Comment on above: 1 Occurrences starting 03/26/2023 until 04/24/2024 OUTSIDE VENDOR CARDI AC OUTPATIENT EXTENDED RHYTHM RECORDING (WITHOUT TELEMETRY) OUTSIDE VENDOR CARDIAC OUTPATIENT EXTENDED RHYTHM RECORDING (WITHOUT TELEMETRY) Holter Routine Palpitations Ordered: 03/28/2023 [facility] Work Phone: Comment on above: Ordered: 03/28/2023 PAP TEST PAP TEST Lab Mk cai Encounter for gynecological examination (general) (routine) with abnormal findings Screening for cervical cancer Encounter for screening for human papillomavirus (HPV) 03/03/2025 11:34 AM EDT [facility] Work Phone: Patient Education [facility] Work Phone: Patient referral [facility] Work Phone: Removal intrauterine device iud REMOVE INTRAUTERINE DEVICE Procedures Routine Pelvic pain in female Ordered: 07/31/2023 [facility] Work Phone: Comment on above: Ordered: 07/31/2023 End: 01-21-2026 RF Shoulder - right Arthrogram XR INJ ARTHROGRAM SHOULDER RIGHT Radiology Routine Superior glenoid labrum lesion of right shoulder, initial encounter 1 Occurrences starting 12/22/2024 until 01/21/2026 [facility] Comment on above: 1 Occurrences starting 12/22/2024 until 01/21/2026 TRICHOMONAS VAGINALI S NAAT TRICHOMONAS VAGINALIS NAAT Lab Routine Screening for STDs (sexually transmitted diseases) 01/05/2025 3:16 PM EST [facility] UA DIP, URINE (POC) UA DIP, URIN E (POC) Lab Routine Urinary frequency Ordered: 09/12/2023 [facility] Work Phone: Comment on above: Ordered: 09/12/2023 UROGENITAL UREAPLASM A AND MYCOPLASMA SPECIES BY PCR, FOR GENITAL, RECTAL, URINE SAMPLES UROGENITAL UREAPLASMA AND MYCOPLASMA SPECIES BY PCR, FOR GENITAL, RECTAL, URINE SAMPLES Lab Routine Urine frequency Dysuria 09/14/2023 12:21 PM EDT [facility] Work Phone: End: 02-14-2026 US Kidney - bilateral and Urinary bladder US KIDNEY/BLADDER Radiology Routine Hypertension, essential Resistant hypertension Pedal edema Brain fog Malaise Fatigue, unspecified type Generalized weakness Lightheaded 1 Occurrences starting 01/15/2025 until 02/14/2026 [facility] Work Phone: Comment on above: 1 Occurrences starting 01/15/2025 until 02/14/2026 US Kidney - bilatera l and Urinary bladder US KIDNEY/BLADDER Radiology Routine Hypertension, essential Resistant hypertension Pedal edema Brain fog Malaise Fatigue, unspecified type Generalized weakness Lightheaded 01/29/2025 2:55 PM EDT [facility] Work Phone: End: 01-15-2026 US Renal artery US RENAL ARTERY [facility] Vascular Lab Routine Hypertension, essential Resistant hypertension Pedal edema Brain fog Malaise Fatigue, unspecified type Generalized weakness Lightheaded 1 Occurrences starting 01/15/2025 until 01/15/2026 [facility] Comment on above: 1 Occurrences starting 01/15/2025 until 01/15/2026 End: 02-28-2026 US Thyroid gland US THYROID/PARATHYROID Radiology Routine Sore throat Tired Sensation of swollen throat Screening for thyroid disorder 1 Occurrences starting 01/29/2025 until 02/28/2026 [facility] Comment on above: 1 Occurrences starting 01/29/2025 until 02/28/2026 US Thyroid gland US THYROID/PARA THYROID Radiology Routine Sore throat Tired Sensation of swollen throat Screening for thyroid disorder 01/29/2025 3:00 PM EDT [facility] End: 10-13-2024 Us transvaginal US FEMALE PELVIS TRANSVAG Radiology Routine Left flank pain Pelvic pain in female 1 Occurrences starting 09/14/2023 until 10/13/2024 [facility] Work Phone: Comment on above: 1 Occurrences starting 09/14/2023 until 10/13/2024 von Willebrand facto r (vWf) Ag [Units/volume] in Platelet poor plasma [facility] von Willebrand facto r (vWf) ristocetin cofactor actual/normal in Platelet poor plasma by Platelet aggregation [facility] End: 01-26-2025 XR Shoulder - right 3 Views XR SHOULDER GENERAL 3V OR MORE AP/TRUE AP/OTHER RIGHT Radiology Routine Acute pain of right shoulder 1 Occurrences starting 12/28/2023 until 01/26/2025 [facility] Work Phone: Comment on above: 1 Occurrences starting 12/28/2023 until 01/26/2025 XR Shoulder - right 3 Views XR SHOULDER GENERAL 3V OR MORE AP/TRUE AP/OTHER RIGHT Radiology Routine Acute pain of right shoulder 12/28/2023 11:11 AM EST [facility] Work Phone: XR Shoulder - right 3 Views XR SHOULDER GENERAL 3V OR MORE AP/TRUE AP/OTHER RIGHT Radiology Routine Superior glenoid labrum lesion of right shoulder, initial encounter Ordered: 12/22/2024 [facility] Work Phone: Comment on above: Ordered: 12/22/2024 [facility] Immunizations Immunization Date Immunization Notes Care Provider [facility] 09-25-2024 influenza, seasonal, injectable, preservative free Dr. Celso Freire DO Work Phone: [facility] 09-25-2024 influenza virus vacc ine, unspecified formulation Neto Mcarthur MD Work Phone: [facility] 08-07-2023 influenza, injectabl e, quadrivalent, preservative free Dr. Celso Freire DO Work Phone: [facility] 08-07-2023 influenza virus vacc ine, unspecified formulation Emely Rozina FARM MANAGER.SENIOR ACCOUNT CLERK Work Phone: [facility] 07-28-2022 influenza, injectabl e, quadrivalent, contains preservative Kelsi Bermudez FARM MANAGER.SENIOR ACCOUNT CLERK Work Phone: [facility] 07-28-2022 influenza virus vacc ine, unspecified formulation Emely Emporia FARM MANAGER.SENIOR ACCOUNT CLERK Work Phone: [facility] 10-10-2021 Human Papillomavirus 9-valent vaccine Amos Samano DO, DO Work Phone: [facility] Work Phone: 10-10-2021 meningococcal polysaccharide (groups A, C, Y and W-135) diphtheria toxoid conjugate vaccine (MCV4P) Amos Samano DO, DO Work Phone: [facility] Work Phone: 08-26-2021 influenza, injectabl e, quadrivalent, contains preservative Amos Samano DO, DO Work Phone: [facility] 08-06-2017 Human Papillomavirus 9-valent vaccine Amos Samano DO, DO Work Phone: [facility] 08-06-2017 influenza, injectabl e, quadrivalent, contains preservative Amos Samano DO, DO Work Phone: [facility] 08-08-2016 meningococcal polysaccharide (groups A, C, Y and W-135) diphtheria toxoid conjugate vaccine (MCV4P) Amos Samano DO, DO Work Phone: [facility] Work Phone: 08-08-2016 varicella virus vaccine Margo Samano DO, DO Work Phone: [facility] Work Phone: 09-22-2015 influenza, injectabl e, quadrivalent, contains preservative Amos Samano DO, DO Work Phone: [facility] Work Phone: 09-22-2015 tetanus toxoid, redu ronda diphtheria toxoid, and acellular pertussis vaccine, adsorbed Amos Samano DO, DO Work Phone: [facility] Work Phone: 08-02-2011 influenza virus vacc ine, live, attenuated, for intranasal use Amos Samano DO, DO Work Phone: [facility] Work Phone: 09-21-2010 influenza virus vacc ine, live, attenuated, for intranasal use Amos Samano DO, DO Work Phone: [facility] Work Phone: 09-07-2008 influenza virus vacc ine, live, attenuated, for intranasal use Amos Samano DO, DO Work Phone: [facility] Work Phone: 07-06-2008 diphtheria, tetanus toxoids and acellular pertussis vaccine Amos Samano DO, DO Work Phone: [facility] Work Phone: 07-06-2008 measles, mumps and rubella virus vaccine Amos Samano DO, DO Work Phone: [facility] Work Phone: 07-06-2008 poliovirus vaccine, inactivated Amos Samano DO, DO Work Phone: [facility] Work Phone: 10-08-2006 influenza virus vacc ine, unspecified formulation Amos Samano DO, DO Work Phone: [facility] 06-20-2005 diphtheria, tetanus toxoids and acellular pertussis vaccine Amos Samano DO, DO Work Phone: [facility] Work Phone: 06-20-2005 haemophilus influenz ae type b vaccine, HbOC conjugate Amos Samano DO, DO Work Phone: [facility] Work Phone: 10-04-2004 influenza virus vacc ine, unspecified formulation Amos Samano DO, DO Work Phone: [facility] Work Phone: 10-04-2004 pneumococcal conjuga te vaccine, 7 valent Amos Samano DO, DO Work Phone: [facility] Work Phone: 07-06-2004 measles, mumps and rubella virus vaccine Amos Samano DO, DO Work Phone: [facility] Work Phone: 07-06-2004 poliovirus vaccine, inactivated Amos Samano DO, DO Work Phone: [facility] Work Phone: 07-06-2004 varicella virus vaccine Margo Samano DO, DO Work Phone: [facility] Work Phone: 2003 diphtheria, tetanus toxoids and acellular pertussis vaccine Amos Samano DO, DO Work Phone: [facility] Work Phone: 2003 haemophilus influenz ae type b vaccine, HbOC conjugate Amos Samano DO, DO Work Phone: [facility] Work Phone: 2003 hepatitis B vaccine, pediatric or pediatric/adolescent dosage Amos Samano DO, DO Work Phone: [facility] Work Phone: 2003 pneumococcal conjuga te vaccine, 7 valent Amos Samano DO, DO Work Phone: [facility] Work Phone: 2003 diphtheria, tetanus toxoids and acellular pertussis vaccine Amos Samano DO, DO Work Phone: [facility] Work Phone: 2003 haemophilus influenz ae type b vaccine, HbOC conjugate Amos Samano DO, DO Work Phone: [facility] Work Phone: 2003 pneumococcal conjuga te vaccine, 7 valent Amos Samano DO, DO Work Phone: [facility] Work Phone: 2003 poliovirus vaccine, inactivated Amos Samano DO, DO Work Phone: [facility] Work Phone: 2003 diphtheria, tetanus toxoids and acellular pertussis vaccine Amos Samano DO, DO Work Phone: [facility] Work Phone: 2003 haemophilus influenz ae type b vaccine, HbOC conjugate Amos Samano DO, DO Work Phone: [facility] Work Phone: 2003 pneumococcal conjuga te vaccine, 7 valent Amos Samano DO, DO Work Phone: [facility] Work Phone: 2003 poliovirus vaccine, inactivated Amos Samano DO, DO Work Phone: [facility] Work Phone: 2003 hepatitis B vaccine, pediatric or pediatric/adolescent dosage Amos Samano DO, DO Work Phone: [facility] Work Phone: 2003 hepatitis B vaccine, pediatric or pediatric/adolescent dosage Amos Samano DO, DO Work Phone: [facility] Work Phone: No information available. Ofelia Arciniega AT [facility] Work Phone: Payers Date Payer Category Payer Self-pay [id number] 2019 Private Health Insurance [facility] CHO[facility] PLUS [id number] 2019-Present [phone] [address] [place] [address] O [id number] 2019 Private Health Insurance [id number] 2019 Private Health Insurance [id number] 2003 Unknown [id number] Unknown [id number] Unknown [id number] Unknown [id number] Social History Date Type Detail Facility Start: 10-26-2021 End: 05-23-2022 Tobacco smoking status SDIS Unknown if ever smoked [facility] Work Phone: Start: 2003 Sex Assigned At Female [facility] Start: 05-23-2022 End: 03-21-2023 Tobacco smoking status SDIS Never smoked tobacco [facility] Start: 12-22-2021 End: 07-07-2025 Alcohol intake Current non-drinker of alcohol (finding) [facility] Start: 2003 Sex Assigned At Not on file [facility] Start: 12-19-2021 End: 10-09-2022 Exposure to SARS-CoV-2 (event) Not sure [facility] Start: 03-26-2023 End: 04-27-2023 History of Social function [facility] Start: 03-26-2023 End: 04-27-2023 Tobacco use panel [facility] Start: 10-20-2012 National Score (1-100), lower number is lower risk 71 [facility] Start: 12-07-2023 Alcohol Comment rare [place] [facility] Start: 02-26-2025 Sex Female (finding) [facility] NEGATED: Highlighted rowStart: 10-02-2018 End: 10-02-2018 Alcohol use ETOH USE No [facility] Work Phone: NEGATED: Highlighted rowStart: 10-02-2018 End: 10-02-2018 Details of drug misuse behavior DRUG USE No [facility] Work Phone: NEGATED: Highlighted rowStart: 10-02-2018 End: 10-02-2018 How many days of moderate to strenuous exercise, like a brisk walk, did you do in the last 7 days? EXERCISEFREQ 6 days per week [facility] Work Phone: NEGATED: Highlighted rowStart: 10-02-2018 End: 10-02-2018 Assertion Never smoker [facility] Work Phone: Medical Equipment Procedure Code Equipment Code Equipment Origin al Text Equipment Identifier Dates K-Wire W/Wire Gu arabella .045 X 5.5 - [id number] Start: 06-24-2014 [place] [employer] Shoulder 1.8mm - [id number] Start: 04-03-2025 [place] [employer] Shoulder 1.8mm - [id number] Start: 04-03-2025 Functional Status Date Assessment Result Facility 03-21-2023 Functional Status Independent [facility] spital 03-21-2023 Functional Status Standard Safety ID band on [facility] 08-13-2014 Are you deaf, or do you have serious difficulty hearing No 08/13/2014 11:14 AM EDT Estella Cline LPN No [facility] 08-13-2014 Are you blind, or do you have serious difficulty seeing, even when wearing glasses No 08/13/2014 11:14 AM EDT Estella Cline LPN No [facility] 08-13-2014 Do you have serious difficulty walking or climbing stairs No 08/13/2014 11:14 AM EDT Estella Cline LPN No [facility] 08-13-2014 Do you have difficul ty dressing or bathing No 08/13/2014 11:14 AM EDT Estella Cline LPN No [facility] Mental Status Date Assessment Result Facility 03-21-2023 Mental Status Orientation Orie nted x 4, Follows simple commands [facility] 03-21-2023 Mental Status [facility] 08-13-2014 Because of a physica l, mental, or emotional condition, do you have serious difficulty concentrating, remembering, or making decisions No 08/13/2014 11:14 AM EDT Estella Cline LPN [facility] Clinical Notes 02-09-2022 to 07-07-2025 Neto Mcarthur MD - 07/07/2025 1:13 PM LANETClashaeKhanhDeb - 07/07/2025 1:00 PM Mayco LimaSANTOS - 07/03/2025 10:53 AM ClarenceMaycoSANTOS - 07/03/2025 10:14 AM EDT Note Date & Type Note Facility 07-07-2025 Note HNO ID: [id number] Author: NETO MCARTHUR MD Service: ? Author Type: Physician Type: Progress Notes Filed: 07/07/2025 13:15 Note Text: History: Maricruz Tejada is a 20 year old female who returns 3 months post labral repair of the Right shoulder. She is doing well. She quantitates the pain as 3/10. She denies chest pain, SOB, fever, chills, or drainage. No calf pain reported. She is taking Ibuprofen for pain management purposes. No numbness or tingling. No swelling. Physical Examination: She is alert and oriented and in no acute distress. The portals are well healed. No erythema or drainage noted. Passive supine FE is 170 degrees and passive ER is 65 degrees. Active FE is 120 degrees and active ER is 50 degrees. Active IR is T10 degrees. She exhibits good strength with ER at the side. Negative Peter?s. Good Rom of elbow and wrist noted. NVI distally. Assessment: Status post labral repair of shoulder (primary encounter diagnosis) Plan: She has completed their formal Phase II physical therapy program. They are to begin Phase III at this time. Restrictions were relayed to the patient. Ice as instructed. She is taking Ibuprofen for pain management purposes if necessary. They understand the risks and benefits of these medications and would like to proceed. Return for follow-up in 6 weeks. Will continue to monitor patient for Status post labral repair of shoulder (primary encounter diagnosis), patient to schedule visit as per follow up discussed. Neto Mcarthur MD [facility] 07-07-2025 History of Presen t illness Narrative History: Maricruz Tejada is a 20 year old female who returns 3 months post labral repair of the Right shoulder. She is doing well. She quantitates the pain as 3/10. She denies chest pain, SOB, fever, chills, or drainage. No calf pain reported. She is taking Ibuprofen for pain management purposes. No numbness or tingling. No swelling. Physical Examination: She is alert and oriented and in no acute distress. The portals are well healed. No erythema or drainage noted. Passive supine FE is 170 degrees and passive ER is 65 degrees. Active FE is 120 degrees and active ER is 50 degrees. Active IR is T10 degrees. She exhibits good strength with ER at the side. Negative Peter s. Good Rom of elbow and wrist noted. NVI distally. Assessment: Status post labral repair of shoulder (primary encounter diagnosis) Plan: She has completed their formal Phase II physical therapy program. They are to begin Phase III at this time. Restrictions were relayed to the patient. Ice as instructed. She is taking Ibuprofen for pain management purposes if necessary. They understand the risks and benefits of these medications and would like to proceed. Return for follow-up in 6 weeks. Will continue to monitor patient for Status post labral repair of shoulder (primary encounter diagnosis), patient to schedule visit as per follow up discussed. Neto Mcarthur MD REVIEW OF SYSTEMS: GENERAL: Well developed, well nourished. No acute distress PAIN: right shoulder pain CARDIOVASCULAR: Negative for chest pain, leg swelling and palpations. MSK: Negative for joint swelling SKIN: Negative for lesions, rash, itching, metal sensitivity NEURO: Negative for seizure, trauma, numbness/tingling of extremities. ENDOCRINE: Negative for diabetic associated symptoms HEMATOLOGY: Negative for excessive bleeding, clots, bleeding disorders. documented in this encounter [facility] 07-07-2025 Note HNO ID: [id number] Author: KHANH CHANG Tech Service: ? Author Type: Industrial Equipment Mechanic Type: Progress Notes Filed: 07/07/2025 13:15 Note Text: REVIEW OF SYSTEMS: GENERAL: Well developed, well nourished. No acute distress PAIN: right shoulder pain CARDIOVASCULAR: Negative for chest pain, leg swelling and palpations. MSK: Negative for joint swelling SKIN: Negative for lesions, rash, itching, metal sensitivity NEURO: Negative for seizure, trauma, numbness/tingling of extremities. ENDOCRINE: Negative for diabetic associated symptoms HEMATOLOGY: Negative for excessive bleeding, clots, bleeding disorders. [facility] 07-03-2025 History of Presen t illness Narrative Program_ID:[id number] Access Code: [email or web address] URL: [email or web address] Date: 07-03-2025 Prepared By: Luis Enrique Sears Program Notes Exercises - Shoulder External Rotation with Anchored Resistance - 1 x daily - 3 x weekly - 3 sets - 10 reps - Standing Shoulder Internal Rotation with Anchored Resistance - 1 x daily - 3 x weekly - 3 sets - 10 reps - Standing Single Arm Elbow Flexion with Resistance - 1 x daily - 3 x weekly - 3 sets - 10 reps - Standing Elbow Extension with Self-Anchored Resistance - 1 x daily - 3 x weekly - 3 sets - 10 reps - cc Sidelying Shoulder Abduction with Dumbbell - 1 x daily - 3 x weekly - 3 sets - 10 reps - Shoulder Flexion Wall Slide with Towel - 1 x daily - 3 x weekly - 3 sets - 10 reps - Sidelying Shoulder Abduction Palm Forward - x daily - 3-4 x weekly - 2-3 sets - 10 reps - Standing Row with Anchored Resistance - x daily - 3-4 x weekly - 3 sets - 10 reps Episode Visit Count: 5 Therapist That Will Accept/Oversee The Plan Of Care: Luis Enrique Sears PT, DPT Start of Care Date: 04/06/25 Onset Date: 12/20/23 Plan of Care Certification Date: 11/27/24 Next Certification Due Date: 11/27/24 [facility]AB[facility]ATION [facility] SPORTS THERAPY PHYSICAL THERAPY TREATMENT NOTE ASSESSMENT: Maricruz Tejada tolerated the session with expected muscle soreness. She demonstrated some popping with last few reps of sidelying abd, but was not painful. She has had improvements in ROM. The patient will continue to benefit from ongoing skilled physical therapy to progress toward set goals. PLAN FOR NEXT VISIT: progress shoulder strengthening as tolerated, per doctor's visit on 07/07 SUBJECTIVE: Patient reports no pain at rest, but has pain with all movement and lifting. She reports compliance with HEP but has been having painful popping in her shoulder. Pain: Pain Pain Level: 0 Pain Location: Shoulder - Right OBJECTIVE MEASURES WITH LEVEL OF FUNCTION: UE PROM R Shoulder Flex: 160 Degrees 90 degrees R shoulder flexion AROM TREATMENT: Therapeutic Exercise: 1: UBE fwd/bwd propulsion, standing, L1, x2/2 min (Not included in billable time) 2: wall wash 5 x10 3: *Rows L4, 2x10 4: pulldowns L4, 2x10 5: scaption AAROM with cane x10 6: sidelying ER 2x10 7: *sidelying abd, thumb up, 1#, 2x10 8: supine deltoid press 1#, 2x10 9: supine chest press 4#, 2x10 10: supine cane flexion and ER 5 x15 each Skilled Intervention: Patient was educated in proper exercise technique and purpose for exercises. Reviewed and educated patient on additions/changes for home exercise program as above (*). Skilled judgment was used in selection of appropriate interventions. Provided written instruction for home exercise program to facilitate proper performance and compliance. Billing Therapeutic Exercise Treatment Minutes: 38 Skilled Treatment Time Minutes (timed and untimed codes): 38 Total Session Time (minutes): 42 Session Start Time : 1014 Session Stop Time : 1056 Mayco Robledo PTA documented in this encounter [facility] 07-03-2025 Note HNO ID: [id number] Author: MAYCO ROBLEDO PTA Service: ? Author Type: Corrugator Operator Type: Progress Notes Filed: 07/03/2025 10:57 Note Text: Episode Visit Count: 5 Therapist That Will Accept/Oversee The Plan Of Care: Luis Enrique Sears, PT, DPT Start of Care Date: 04/06/25 Onset Date: 12/20/23 Plan of Care Certification Date: 11/27/24 Next Certification Due Date: 11/27/24 REHABILITATION AND SPORTS THERAPY PHYSICAL THERAPY TREATMENT NOTE ASSESSMENT: Maricruz Tejada tolerated the session with expected muscle soreness. She demonstrated some popping with last few reps of sidelying abd, but was not painful. She has had improvements in ROM. The patient will continue to benefit from ongoing skilled physical therapy to progress toward set goals. PLAN FOR NEXT VISIT: progress shoulder strengthening as tolerated, per doctor's visit on 07/07 SUBJECTIVE: Patient reports no pain at rest, but has pain with all movement and lifting. She reports compliance with HEP but has been having painful popping in her shoulder. Pain: Pain Pain Level: 0 Pain Location: Shoulder - Right OBJECTIVE MEASURES WITH LEVEL OF FUNCTION: UE PROM R Shoulder Flex: 160 Degrees 90 degrees R shoulder flexion AROM TREATMENT: Therapeutic Exercise: 1: UBE fwd/bwd propulsion, standing, L1, x2/2 min (Not included in billable time) 2: wall wash 5 x10 3: *Rows L4, 2x10 4: pulldowns L4, 2x10 5: scaption AAROM with cane x10 6: sidelying ER 2x10 7: *sidelying abd, thumb up, 1#, 2x10 8: supine deltoid press 1#, 2x10 9: supine chest press 4#, 2x10 10: supine cane flexion and ER 5 x15 each Skilled Intervention: Patient was educated in proper exercise technique and purpose for exercises. Reviewed and educated patient on additions/changes for home exercise program as above (*). Skilled judgment was used in selection of appropriate interventions. Provided written instruction for home exercise program to facilitate proper performance and compliance. Billing Therapeutic Exercise Treatment Minutes: 38 Skilled Treatment Time Minutes (timed and untimed codes): 38 Total Session Time (minutes): 42 Session Start Time : 1014 Session Stop Time : 1056 Mayco Robledo PTA [facility] 07-03-2025 Annalisa Barger APRN.SENIOR ACCOUNT CLERK - 07/03/2025 7:22 AM EDT Get your urine tox screen done for adderall compliance Start duloxetine 20mg daily x 7 days and then every other day until gone then stop Continue paxil Start lamictal 25mg by mouth daily x 14 days and then increase to 25mg twice a day - will review and adjust up at follow up if needed and tolerating documented in this encounter [facility] 07-03-2025 Note HNO ID: [id number] Author: ANNALISA PRESLEY APRN.MAYA Service: ? Author Type: Nurse Practitioner Type: Progress Notes Filed: 07/03/2025 08:16 Note Text: This is a 20 year old female who presents today with: Maricruz Tejada is a 20-year-old female with a history of ADD, POTS, depression, and migraines, presenting for management of ADD and depression. HISTORY OF PRESENT ILLNESS: ADD: - Previously managed with Adderall 5 mg daily, approximately 3-4 years ago. 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 Depression: - Currently taking Paxil daily and duloxetine 40 mg daily. - Reports severe depression and anxiety, with more pronounced lows. Feels she hasn't felt good for a year - Has been on duloxetine 40 mg for several months; previously on 60 mg but did not tolerate well. - Tried Zoloft in the past but discontinued due to excessive sweating. - On a waitlist for therapy with [facility] [place] POTS: - Diagnosed with POTS; experiences symptoms occasionally. - Monitors heart rate with a watch.. - Can tell when she hasn't had enough to drink and that affects it Migraines: - History of migraines. PAST MEDICAL HISTORY: PAST MEDICAL HISTORY Diagnosis Date Calculus of kidney Essential hypertension Migraine headache with aura PMDD (premenstrual dysphoric disorder) 2019 POTS (postural orthostatic tachycardia syndrome) borderline Rotator cuff dysfunction, right partial tear Syncope and collapse Tachycardia PAST SURGICAL HISTORY Procedure Laterality Date INSERTION OF IUD 10/24/2021 removed 09/14/2023 PAST SURGICAL HISTORY OF removal of renal calculi via lithotrypsy PAST SURGICAL HISTORY OF 06/24/2014 PCP of right thumb PAST SURGICAL HISTORY OF Right 04/03/2025 Shoulder arthroscopy with repair slap lesion UNLISTED PROCEDURE LACRIMAL SYSTEM 02/18/2004 DR WHEELER ALLERGIES Codeine and Tramadol MEDICATIONS Current Outpatient Medications Medication Sig triamterene-hydroCHLOROthiazide (MAXZIDE) 75-50 mg per tablet Take 1 tablet by mouth once daily. baclofen 10 mg tablet Take 1 tablet by mouth once daily as needed. ondansetron (ZOFRAN) 4 mg tablet Take 1 tablet by mouth every 8 hours as needed. metoprolol succinate ER (TOPROL XL) 100 mg Take 1.5 tablets by mouth once daily. levonorgestrel (MIRENA) 21 mcg/24hr (up to 8 yrs) 52 mg IUD 1 Each by INTRAUTERINE route as directed. tretinoin (RETIN-A) 0.025 % topical cream Mix 50/50 with moisturizer and apply to the affected areas of the face every night. Azelaic Acid 15 % gel Apply a thin layer to the full face once daily in the morning ubrogepant (UBRELVY) 100 mg tablet Take 1 tab at migraine onset. May repeat once in 2 hours as needed. Cholecalciferol, Vitamin D3, 50 mcg (2,000 unit) cap Take 1 capsule by mouth once daily. lisinopril (ZESTRIL) 20 mg tablet Take 1 tablet by mouth once daily. PARoxetine (PAXIL) 10 mg tablet Take 1 tablet by mouth once daily. dextroamphetamine-amphetamine (ADDERALL) 5 mg tablet Take 1 tablet by mouth once daily for [address] (CYMBALTA) 20 mg capsule Take 1 capsule by mouth once daily. lamoTRIgine (LAMICTAL) 25 mg tablet Take 1 tablet by mouth two times a day. Start taking 25mg 1 tab daily x 14 days and then increase to 25mg twice daily No current facility-administered medications for this visit. FAMILY HISTORY Problem Relation Age of Onset Hypertension Mother Started in mid-30's Hypertension Father No Known Problems Sister No Known Problems Brother Hypertension Maternal Grandmother Hypertension Maternal Grandfather Lipids Maternal Grandfather other (FIBROMYALGIA) Paternal Grandmother SOCIAL HISTORY[1] REVIEW OF SYSTEMS Neurological: (+) migraine Psychiatric: (+) depressed mood, (+) anxiety, (+) mood swings See HPI EXAM: BP 120/86 (BP Site: Left Arm, BP Position: Sitting, BP Cuff Size: Regular Adult) Pulse 76 Resp 16 Wt 69.6 kg (153 lb 6.4 oz) LMP 02/24/2025 (Exact Date) BMI 28.06 kg/m? PHYSICAL EXAM: General Appearance: Well appearing, alert, in no acute distress, well-hydrated, well nourished.. Lungs: Lungs clear to auscultation. No wheezing, rhonchi, rales.. Heart: RRR without murmur, gallop, or rubs. No ectopy. ASSESSMENT/PLAN: 1. Depression, unspecified depression type - ICD9: 311, ICD10: F32.A (primary diagnosis)/ Anxiety 2. Stress - ICD9: V62.89, ICD10: F43.9 - PAROXETINE 10 MG TABLET continue, refilled - DULOXETINE 20 MG CAPSULE,DELAYED RELEASE- taper off and stop - LAMOTRIGINE 25 MG TABLET - start 25mg daily x 14 days and increase to 25mg bid. Follow up in 4 weeks 3. Attention deficit disorder (ADD) in adult - ICD9: 314.00, ICD10: F98.8 4. Medication management contract agreement - ICD9: V68.89, ICD10: Z02.89 - DEXTROAMPHETAMINE-AMPHETAMINE 5 MG TABLET- take a (more content not included)... [facility] 07-03-2025 History of Presen t illness Narrative This is a 20 year old female who presents today with: Maricruz Tejada is a 20-year-old female with a history of ADD, POTS, depression, and migraines, presenting for management of ADD and depression. HISTORY OF PRESENT ILLNESS: ADD: - Previously managed with Adderall 5 mg daily, approximately 3-4 years ago. 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 Depression: - Currently taking Paxil daily and duloxetine 40 mg daily. - Reports severe depression and anxiety, with more pronounced lows. Feels she hasn't felt good for a year - Has been on duloxetine 40 mg for several months; previously on 60 mg but did not tolerate well. - Tried Zoloft in the past but discontinued due to excessive sweating. - On a waitlist for therapy with [place] POTS: - Diagnosed with POTS; experiences symptoms occasionally. - Monitors heart rate with a watch.. - Can tell when she hasn't had enough to drink and that affects it Migraines: - History of migraines. PAST MEDICAL HISTORY: PAST MEDICAL HISTORY Diagnosis Date Calculus of kidney Essential hypertension Migraine headache with aura PMDD (premenstrual dysphoric disorder) 2018 POTS (postural orthostatic tachycardia syndrome) borderline Rotator cuff dysfunction, right partial tear Syncope and collapse Tachycardia PAST SURGICAL HISTORY Procedure Laterality Date INSERTION OF IUD 10/24/2021 removed 09/14/2023 PAST SURGICAL HISTORY OF removal of renal calculi via lithotrypsy PAST SURGICAL HISTORY OF 06/24/2014 PCP of right thumb PAST SURGICAL HISTORY OF Right 04/03/2025 Shoulder arthroscopy with repair slap lesion UNLISTED PROCEDURE LACRIMAL SYSTEM 02/18/2004 DR WHEELER ALLERGIES Codeine and Tramadol MEDICATIONS Current Outpatient Medications Medication Sig triamterene-hydroCHLOROthiazide (MAXZIDE) 75-50 mg per tablet Take 1 tablet by mouth once daily. baclofen 10 mg tablet Take 1 tablet by mouth once daily as needed. ondansetron (ZOFRAN) 4 mg tablet Take 1 tablet by mouth every 8 hours as needed. metoprolol succinate ER (TOPROL XL) 100 mg Take 1.5 tablets by mouth once daily. levonorgestrel (MIRENA) 21 mcg/24hr (up to 8 yrs) 52 mg IUD 1 Each by INTRAUTERINE route as directed. tretinoin (RETIN-A) 0.025 % topical cream Mix 50/50 with moisturizer and apply to the affected areas of the face every night. Azelaic Acid 15 % gel Apply a thin layer to the full face once daily in the morning ubrogepant (UBRELVY) 100 mg tablet Take 1 tab at migraine onset. May repeat once in 2 hours as needed. Cholecalciferol, Vitamin D3, 50 mcg (2,000 unit) cap Take 1 capsule by mouth once daily. lisinopril (ZESTRIL) 20 mg tablet Take 1 tablet by mouth once daily. PARoxetine (PAXIL) 10 mg tablet Take 1 tablet by mouth once daily. dextroamphetamine-amphetamine (ADDERALL) 5 mg tablet Take 1 tablet by mouth once daily for [address] (CYMBALTA) 20 mg capsule Take 1 capsule by mouth once daily. lamoTRIgine (LAMICTAL) 25 mg tablet Take 1 tablet by mouth two times a day. Start taking 25mg 1 tab daily x 14 days and then increase to 25mg twice daily No current facility-administered medications for this visit. FAMILY HISTORY Problem Relation Age of Onset Hypertension Mother Started in mid-30's Hypertension Father No Known Problems Sister No Known Problems Brother Hypertension Maternal Grandmother Hypertension Maternal Grandfather Lipids Maternal Grandfather other (FIBROMYALGIA) Paternal Grandmother SOCIAL HISTORY[1] REVIEW OF SYSTEMS Neurological: (+) migraine Psychiatric: (+) depressed mood, (+) anxiety, (+) mood swings See HPI EXAM: BP 120/86 (BP Site: Left Arm, BP Position: Sitting, BP Cuff Size: Regular Adult) Pulse 76 Resp 16 Wt 69.6 kg (153 lb 6.4 oz) LMP 02/24/2025 (Exact Date) BMI 28.06 kg/m PHYSICAL EXAM: General Appearance: Well appearing, alert, in no acute distress, well-hydrated, well nourished.. Lungs: Lungs clear to auscultation. No wheezing, rhonchi, rales.. Heart: RRR without murmur, gallop, or rubs. No ectopy. ASSESSMENT/PLAN: 1. Depression, unspecified depression type - ICD9: 311, ICD10: F32.A (primary diagnosis)/ Anxiety 2. Stress - ICD9: V62.89, ICD10: F43.9 - PAROXETINE 10 MG TABLET continue, refilled - DULOXETINE 20 MG CAPSULE,DELAYED RELEASE- taper off and stop - LAMOTRIGINE 25 MG TABLET - start 25mg daily x 14 days and increase to 25mg bid. Follow up in 4 weeks 3. Attention deficit disorder (ADD) in adult - ICD9: 314.00, ICD10: F98.8 4. Medication management contract agreement - ICD9: V68.89, ICD10: Z02.89 - DEXTROAMPHETAMINE-AMPHETAMINE 5 MG TABLET- take as needed for school days - TOXICOLOGY SCREEN, ROUTINE URINE- med management - Contract signed for nonopioid 5. Hypertension, essential - ICD9: 401.9, ICD10: I10 - Controlled - Encouraged sodium restriction, DASH or Mediterranean diet - Recommend regular aerobic exercise - LISINOPRIL 20 MG TABLET - refilled lisinopril Discussed treatment plan and patient voices understanding. Patient's questions answered appropriately. Medications and potential side effects were discussed and patient voices understanding. Return to the office as scheduled or as needed for worsening/no improvement. Annalisa Presley APRN.SENIOR ACCOUNT CLERK Recording using ambient [employer] software for draft documentation of the visit was discussed with the patient/authorized contact representative; all questions welcomed and answered. Patient/authorized contact representative agreed to proceed [1] Social History Tobacco Use Smoking status: Never Smokeless tobacco: Never Vaping Use Vaping status: Never Used Substance Use Topics Alcohol use: No Drug use: No documented in this encounter [facility] 06-19-2025 Telephone encounter Note Patient has been identified by name and date of : Patient phones for refill(s): Requested Prescriptions Pending Prescriptions Disp Refills triamterene-hydroCHLOROthiazide (MAXZIDE) 75-50 mg per tablet 30 tablet 2 Sig: Take 1 tablet by mouth once daily. Date of last office visit in primary care: 05/27/2025 Date of next office visit in primary care: Visit date not found Please advise. Thank you. Leigh Betancourt LPN. [facility] 06-19-2025 Miscellaneous Notes Patient has been identified by name and date of : Patient phones for refill(s): Requested Prescriptions Pending Prescriptions Disp Refills triamterene-hydroCHLOROthiazide (MAXZIDE) 75-50 mg per tablet 30 tablet 2 Sig: Take 1 tablet by mouth once daily. Date of last office visit in primary care: 05/27/2025 Date of next office visit in primary care: Visit date not found Please advise. Thank you. Leigh Betancourt LPN. documented in this encounter [place] [id number] History of Presen t illness Narrative Program_ID:[id number] Access Code: [email or web address] URL: [email or web address] Date: 06-17-2025 Prepared By: Luis Enrique Sears Program Notes Exercises - Shoulder External Rotation with Anchored Resistance - 1 x daily - 3 x weekly - 3 sets - 10 reps - Standing Shoulder Internal Rotation with Anchored Resistance - 1 x daily - 3 x weekly - 3 sets - 10 reps - Standing Single Arm Elbow Flexion with Resistance - 1 x daily - 3 x weekly - 3 sets - 10 reps - Standing Elbow Extension with Self-Anchored Resistance - 1 x daily - 3 x weekly - 3 sets - 10 reps - cc Sidelying Shoulder Abduction with Dumbbell - 1 x daily - 3 x weekly - 3 sets - 10 reps - Shoulder Flexion Wall Slide with Towel - 1 x daily - 3 x weekly - 3 sets - 10 reps Images from the original note were not included. Episode Visit Count: 4 Therapist That Will Accept/Oversee The Plan Of Care: Luis Enrique Sears PT, DPT Start of Care Date: 04/06/25 Onset Date: 12/20/23 Plan of Care Certification Date: 11/27/24 Next Certification Due Date: 11/27/24 REHABILITATION AND SPORTS THERAPY PHYSICAL THERAPY PROGRESS REPORT PLAN OF CARE UPDATE: Assessment: Maricruz Tejada demonstrates moderate improvement in reaching behind back and reaching overhead. The patient has progressed toward goals. Patient continues to present with impairments in posture, range of motion, strength, and symptom management that interfere with use hand with arm at shoulder level, reaching overhead, reaching behind back, working, lifting . Current prognosis is Good due to: current objective clinical presentation, good overall health status, good support system/ coping skills . The patient will benefit from continued skilled therapy services to meet the updated goals for this plan of care as noted below. Goals updated on 06/17/2025. Goals for Episode of Care: established 04/06/25 [place] in home exercise program. MEETING Patient will decrease pain rating by 2 points to meet minimal clinical important difference for numeric pain rating scale. MEETING Patient will increase active ROM of right shoulder flexion to 160 degrees, internal rotation to T9, and external rotation to 60 degrees to allow pt to to improve performance of ADLs. PROGRESSING Patient will demonstrate increase in right shoulder strength to 4/5 during manual muscle testing in order to improve function for home management tasks and work tasks. PROGRESSING Improve postural awareness. ONGOING Patient Goals: to get out of the sling, be able to have full rnage of motion of the shoulder Time Frame for Goals and Treatment : 07/27/25 Planned Interventions, Frequency, and Duration: 1x every other week, 8 weeks Total Number of Visits Planned: 4 Patient to be seen for Therapeutic exercise (38868), Neuromuscular re-education (56801), Manual therapy (02678), Therapeutic activities (28027), Self-nursing home management (32284), Patient/Family/Caregiver Education, E-Stim Attended/TENS (73964) PLAN FOR NEXT VISIT: progress shoulder strengthening as tolerated SUBJECTIVE: Patient reports the shoulder has been ok. Still having a little bit of pain. She denies improvements in postural awareness. She has continued to do her stretches.. Functional Limitations: use hand with arm at shoulder level, reaching overhead, reaching behind back, working, lifting Pain: Pain Pain Level: 0 Pain Location: Shoulder - Right Detailed Pain Score: Yes Worst Pain Level: 8 Post Treatment Pain Post Treatment Pain Level: No Change PROMIS Scales 06/17/2025 05/05/2025 04/06/2025 Higher is Better Phys Func - T Score 35 (moderate dysfunction) 31 (moderate dysfunction) 28 (severe dysfunction) Phys Func - Percentile 7 3 1 Self-Eff Symptom - T Score 52 (Average) 46 (Average) 33 (Low) Self-Eff Symptom - Percentile 58 34 4 T-Score and Percentile Interpretation T-scores: mean of general population = 50. 5 points is clinically meaningfully difference Percentiles provide an indication of how the patient's score ranks in relation to the general population. Higher percentile rankings indicate better function/quality of life. 50th percentile is the average of the general population and indicates half of respondents had a worse score. OBJECTIVE MEASURES WITH LEVEL OF FUNCTION: UE AROM R Shoulder Flex: 145 Degrees R Shoulder ABduction: 75 Degrees R Shoulder Internal Rotation (Functional): R of T12 R Shoulder External Rotation (Functional): 85 UE and Cervical Strength Strength Tested: Shoulder Functional Strength R Shoulder Flexion: 4-/5 R Shoulder Abduction (C5): 3-/5 (limited by pain) R Shoulder Internal Rotation: 5/5 R Shoulder External Rotation: 4/5 R Elbow Flexion (C6): 5/5 TREATMENT: Therapeutic Exercise: *reassessment performed to determine patient's progress since start of care. 1: UBE fwd/bwd propulsion, standing, L1, x2/2 min 2: *shoulder IR, standing, L3 TB, 3x10 R 3: *shoulder ER, standing, L1 TB, 3x10 R 4: *bicep curl, standing, L1 TB, 3x10 R 5: *tricep extension, standing, L1 TB, 3x10 R 6: *shoulder ABD, sidelying, 2#, 3x10 R 7: *shoulder FLEX wall slide, standing, 2x10 R 8: bilat scap RET, prone, 3 sec hold, 3x10 9: bilat shoulder EXT, prone, 3x10 Skilled Intervention: Patient was educated in proper exercise technique and purpose for exercises. Reviewed and educated patient on additions/changes for home exercise program as above (*). Skilled judgment was used in selection of appropriate interventions. Correct performance of therapeutic exercises was facilitated with verbal, visual, and tactile cuing. Appropriate tests and measures performed for completion of progress report. Home Exercise Program Assigned: Current Home Program: [employer] Access Code: [email or web address] URL: [email or web address] Date: 06/17/2025 Prepared by: Luis Enrique Sears Exercises - Shoulder External Rotation with Anchored Resistance (Mirrored) - 1 x daily - 3 x weekly - 3 sets - 10 reps - orange resistance band - Standing Shoulder Internal Rotation with Anchored Resistance - 1 x daily - 3 x weekly - 3 sets - 10 reps - light blue resistance band - Standing Single Arm Elbow Flexion with Resistance (Mirrored) - 1 x daily - 3 x weekly - 3 sets - 10 reps - orange resistance band - Standing Elbow Extension with Self-Anchored Resistance - 1 x daily - 3 x weekly - 3 sets - 10 reps - orange resistance band - cc Sidelying Shoulder Abduction with Dumbbell - 1 x daily - 3 x weekly - 3 sets - 10 reps - 2# weight - Shoulder Flexion Wall Slide with Towel - 1 x daily - 3 x weekly - 3 sets - 10 reps Billing Therapeutic Exercise Treatment Minutes: 39 Skilled Treatment Time Minutes (timed and untimed codes): 39 Total Session Time (minutes): 43 Session Start Time : 743 Session Stop Time : 826 Luis Enrique Sears PT documented in this encounter [facility] 06-17-2025 Note HNO ID: [id number] Author: LUIS ENRIQUE SEARS PT Service: ? Author Type: Physical Therapist Type: Progress Notes Filed: 06/17/2025 08:27 Note Text: Episode Visit Count: 4 Therapist That Will Accept/Oversee The Plan Of Care: Luis Enrique Sears PT, DPT Start of Care Date: 04/06/25 Onset Date: 12/20/23 Plan of Care Certification Date: 11/27/24 Next Certification Due Date: 11/27/24 REHABILITATION AND SPORTS THERAPY PHYSICAL THERAPY PROGRESS REPORT PLAN OF CARE UPDATE: Assessment: Maricruz Tejada demonstrates moderate improvement in reaching behind back and reaching overhead. The patient has progressed toward goals. Patient continues to present with impairments in posture, range of motion, strength, and symptom management that interfere with use hand with arm at shoulder level, reaching overhead, reaching behind back, working, lifting . Current prognosis is Good due to: current objective clinical presentation, good overall health status, good support system/ coping skills . The patient will benefit from continued skilled therapy services to meet the updated goals for this plan of care as noted below. Goals updated on 06/17/2025. Goals for Episode of Care: established 04/06/25 [place] in home exercise program. MEETING Patient will decrease pain rating by 2 points to meet minimal clinical important difference for numeric pain rating scale. MEETING Patient will increase active ROM of right shoulder flexion to 160 degrees, internal rotation to T9, and external rotation to 60 degrees to allow pt to to improve performance of ADLs. PROGRESSING Patient will demonstrate increase in right shoulder strength to 4/5 during manual muscle testing in order to improve function for home management tasks and work tasks. PROGRESSING Improve postural awareness. ONGOING Patient Goals: to get out of the sling, be able to have full rnage of motion of the shoulder Time Frame for Goals and Treatment : 07/27/25 Planned Interventions, Frequency, and Duration: 1x every other week, 8 weeks Total Number of Visits Planned: 4 Patient to be seen for Therapeutic exercise (33772), Neuromuscular re-education (77684), Manual therapy (97912), Therapeutic activities (58252), Self-nursing home management (60219), Patient/Family/Caregiver Education, E-Stim Attended/TENS (51831) PLAN FOR NEXT VISIT: progress shoulder strengthening as tolerated SUBJECTIVE: Patient reports the shoulder has been ok. Still having a little bit of pain. She denies improvements in postural awareness. She has continued to do her stretches.. Functional Limitations: use hand with arm at shoulder level, reaching overhead, reaching behind back, working, lifting Pain: Pain Pain Level: 0 Pain Location: Shoulder - Right Detailed Pain Score: Yes Worst Pain Level: 8 Post Treatment Pain Post Treatment Pain Level: No Change PROMIS Scales 06/17/2025 05/05/2025 04/06/2025 Higher is Better Phys Func - T Score 35 (moderate dysfunction) 31 (moderate dysfunction) 28 (severe dysfunction) Phys Func - Percentile 7 3 1 Self-Eff Symptom - T Score 52 (Average) 46 (Average) 33 (Low) Self-Eff Symptom - Percentile 58 34 4 T-Score and Percentile Interpretation T-scores: mean of general population = 50. 5 points is clinically meaningfully difference Percentiles provide an indication of how the patient's score ranks in relation to the general population. Higher percentile rankings indicate better function/quality of life. 50th percentile is the average of the general population and indicates half of respondents had a worse score. OBJECTIVE MEASURES WITH LEVEL OF FUNCTION: UE AROM R Shoulder Flex: 145 Degrees R Shoulder ABduction: 75 Degrees R Shoulder Internal Rotation (Functional): R of T12 R Shoulder External Rotation (Functional): 85 UE and Cervical Strength Strength Tested: Shoulder Functional Strength R Shoulder Flexion: 4-/5 R Shoulder Abduction (C5): 3-/5 (limited by pain) R Shoulder Internal Rotation: 5/5 R Shoulder External Rotation: 4/5 R Elbow Flexion (C6): 5/5 TREATMENT: Therapeutic Exercise: *reassessment performed to determine patient's progress since start of care. 1: UBE fwd/bwd propulsion, standing, L1, x2/2 min 2: *shoulder IR, standing, L3 TB, 3x10 R 3: *shoulder ER, standing, L1 TB, 3x10 R 4: *bicep curl, standing, L1 TB, 3x10 R 5: *tricep extension, standing, L1 TB, 3x10 R 6: *shoulder ABD, sidelying, 2#, 3x10 R 7: *shoulder FLEX wall slide, standing, 2x10 R 8: bilat scap RET, prone, 3 sec hold, 3x10 9: bilat shoulder EXT, prone, 3x10 Skilled Intervention: Patient was educated in proper exercise technique and purpose for exercises. Reviewed and educated patient on additions/changes for home exercise program as above (*). Skilled judgment was used in selection of appropriate interventions. Correct performance of therapeutic exercises was facilitated with verbal, visual, and tactile cuing. (more content not included)... [facility] 06-12-2025 History of Presen t illness Narrative Maricruz Tejada is a 20 year old female who presented for professor of nursing ultrasound today. Encounter Diagnosis ICD-10-CM 1. DUB (dysfunctional uterine bleeding) N93.8 2. IUD (intrauterine device) in place Z97.5 Please see report under imaging tab. Brianna García MD June 12, 2025 1:22 PM documented in this encounter [facility] 06-12-2025 Note HNO ID: [id number] Author: BRIANNA GARCÍA MD Service: ? Author Type: Physician Type: Progress Notes Filed: 06/12/2025 13:23 Note Text: Maricruz Tejada is a 20 year old female who presented for professor of nursing ultrasound today. Encounter Diagnosis ICD-10-CM 1. DUB (dysfunctional uterine bleeding) N93.8 2. IUD (intrauterine device) in place Z97.5 Please see report under imaging tab. Brianna García MD June 12, 2025 1:22 PM [facility] 06-01-2025 Note HNO ID: [id number] Author: TINA POWER MD Service: ? Author Type: Physician Type: Progress Notes Filed: 06/01/2025 14:13 Note Text: Eeg Tech offered: Patient declines. Maricruz Tejada is a 19 year old female who presents for problem visit - possible . HPI: Has the IUD and has had irregular bleeding ever since placement. Has had 15 days of bleeding. She describes the bleeding as light today. Was previously similar to a heavier period. No pelvic pain. 1 week ago she had a positive test followed by two negatives. Sexually active with condoms. 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 History Comments: Sexual Activity: Yes; Male Contraception: No contraception data on record PAST MEDICAL HISTORY Diagnosis Date Calculus of kidney Essential hypertension Migraine headache with aura PMDD (premenstrual dysphoric disorder) 2019 POTS (postural orthostatic tachycardia syndrome) borderline Rotator cuff dysfunction, right partial tear Syncope and collapse Tachycardia PAST SURGICAL HISTORY Procedure Laterality Date INSERTION OF IUD 10/24/2021 removed 09/14/2023 PAST SURGICAL HISTORY OF removal of renal calculi via lithotrypsy PAST SURGICAL HISTORY OF 06/24/2014 PCP of right thumb PAST SURGICAL HISTORY OF Right 04/03/2025 Shoulder arthroscopy with repair slap lesion UNLISTED PROCEDURE LACRIMAL SYSTEM 02/18/2004 DR WHEELER FAMILY HISTORY Problem Relation Age of Onset Hypertension Mother Started in mid-30's Hypertension Father No Known Problems Sister No Known Problems Brother Hypertension Maternal Grandmother Hypertension Maternal Grandfather Lipids Maternal Grandfather other (FIBROMYALGIA) Paternal Grandmother Social History Tobacco Use Smoking status: Never Smokeless tobacco: Never Vaping Use Vaping status: Never Used Substance Use Topics Alcohol use: No Drug use: No Current Outpatient Medications Medication Sig DULoxetine (CYMBALTA) 40 mg cpDR Take 1 capsule by mouth once daily. baclofen 10 mg tablet Take 1 tablet by mouth once daily as needed. ondansetron (ZOFRAN) 4 mg tablet Take 1 tablet by mouth every 8 hours as needed. metoprolol succinate ER (TOPROL XL) 100 mg Take 1.5 tablets by mouth once daily. triamterene-hydroCHLOROthiazide (MAXZIDE) 75-50 mg per tablet Take 1 tablet by mouth once daily. levonorgestrel (MIRENA) 21 mcg/24hr (up to 8 yrs) 52 mg IUD 1 Each by INTRAUTERINE route as directed. lisinopril (ZESTRIL) 20 mg tablet Take 1 tablet by mouth once daily. tretinoin (RETIN-A) 0.025 % topical cream Mix 50/50 with moisturizer and apply to the affected areas of the face every night. Azelaic Acid 15 % gel Apply a thin layer to the full face once daily in the morning PARoxetine (PAXIL) 10 mg tablet Take 1 tablet by mouth once daily. ubrogepant (UBRELVY) 100 mg tablet Take 1 tab at migraine onset. May repeat once in 2 hours as needed. Cholecalciferol, Vitamin D3, 50 mcg (2,000 unit) cap Take 1 capsule by mouth once daily. No current facility-administered medications for this visit. Allergies As of Date: 06/01/2025 Allergen Noted Reaction CODEINE 07/03/2007 TRAMADOL 06/30/2014 Itching and Other: See Comments Fully Assessed 05/28/2025 REVIEW OF SYSTEMS Expanded ROS: See HPI Allergies and current medication updated:Yes SENSITIVE EXAM: The sensitive examination was discussed with the Patient or Patient's Authorized Other Sports Official. As applicable, any other physician, advance practice provider, medical student, or other health professional student that will be observing or involved in the sensitive examination for educational or training purposes was discussed with the Patient or Authorized Other Sports Official. The Patient or Authorized Other Sports Official has agreed to proceed with the sensitive examination. (Sensitive examination includes inspection and/or palpation of the breasts, pelvis, prostate and anorectal regions). EXAM: LMP 02/24/2025 GENERAL: pleasant, female in no apparent distress HEENT: Normocephalic and atraumatic CHEST: Normal inspiratory effort ABDOMEN: soft, non-tender, and no masses PELVIC: external genitalia normal, normal Bartholin's glands, urethra, [place]'s glands, no vulvar lesions, no cervical lesions, good vaginal support, physiologic discharge present, normal appearing perineal body and perianal region, IUD strings visible BIMANUAL: uterus normal size, shape and consistency, no adnexal masses, non-tender, and no cervical motion tenderness NEURO: exam grossly non-focal EXTREMITIES: normal ASSESSMENT AND PLAN: Assessment AND Plan examination or test, negative result Orders: UA DIP,URINE HCG (POC) DUB (dysfunctional uterine bleeding) Orders: PELV (more content not included)... [facility] 06-01-2025 History of Presen t illness Narrative Eeg Tech offered: Patient declines. Maricruz Tejada is a 19 year old female who presents for problem visit - possible . HPI: Has the IUD and has had irregular bleeding ever since placement. Has had 15 days of bleeding. She describes the bleeding as light today. Was previously similar to a heavier period. No pelvic pain. 1 week ago she had a positive test followed by two negatives. Sexually active with condoms. 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 History Comments: Sexual Activity: Yes; Male Contraception: No contraception data on record PAST MEDICAL HISTORY Diagnosis Date Calculus of kidney Essential hypertension Migraine headache with aura PMDD (premenstrual dysphoric disorder) 2019 POTS (postural orthostatic tachycardia syndrome) borderline Rotator cuff dysfunction, right partial tear Syncope and collapse Tachycardia PAST SURGICAL HISTORY Procedure Laterality Date INSERTION OF IUD 10/24/2021 removed 09/14/2023 PAST SURGICAL HISTORY OF removal of renal calculi via lithotrypsy PAST SURGICAL HISTORY OF 06/24/2014 PCP of right thumb PAST SURGICAL HISTORY OF Right 04/03/2025 Shoulder arthroscopy with repair slap lesion UNLISTED PROCEDURE LACRIMAL SYSTEM 02/18/2004 DR WHEELER FAMILY HISTORY Problem Relation Age of Onset Hypertension Mother Started in mid-30's Hypertension Father No Known Problems Sister No Known Problems Brother Hypertension Maternal Grandmother Hypertension Maternal Grandfather Lipids Maternal Grandfather other (FIBROMYALGIA) Paternal Grandmother Social History Tobacco Use Smoking status: Never Smokeless tobacco: Never Vaping Use Vaping status: Never Used Substance Use Topics Alcohol use: No Drug use: No Current Outpatient Medications Medication Sig DULoxetine (CYMBALTA) 40 mg cpDR Take 1 capsule by mouth once daily. baclofen 10 mg tablet Take 1 tablet by mouth once daily as needed. ondansetron (ZOFRAN) 4 mg tablet Take 1 tablet by mouth every 8 hours as needed. metoprolol succinate ER (TOPROL XL) 100 mg Take 1.5 tablets by mouth once daily. triamterene-hydroCHLOROthiazide (MAXZIDE) 75-50 mg per tablet Take 1 tablet by mouth once daily. levonorgestrel (MIRENA) 21 mcg/24hr (up to 8 yrs) 52 mg IUD 1 Each by INTRAUTERINE route as directed. lisinopril (ZESTRIL) 20 mg tablet Take 1 tablet by mouth once daily. tretinoin (RETIN-A) 0.025 % topical cream Mix 50/50 with moisturizer and apply to the affected areas of the face every night. Azelaic Acid 15 % gel Apply a thin layer to the full face once daily in the morning PARoxetine (PAXIL) 10 mg tablet Take 1 tablet by mouth once daily. ubrogepant (UBRELVY) 100 mg tablet Take 1 tab at migraine onset. May repeat once in 2 hours as needed. Cholecalciferol, Vitamin D3, 50 mcg (2,000 unit) cap Take 1 capsule by mouth once daily. No current facility-administered medications for this visit. Allergies As of Date: 06/01/2025 Allergen Noted Reaction CODEINE 07/03/2007 TRAMADOL 06/30/2014 Itching and Other: See Comments Fully Assessed 05/28/2025 REVIEW OF SYSTEMS Expanded ROS: See HPI Allergies and current medication updated:Yes SENSITIVE EXAM: The sensitive examination was discussed with the Patient or Patient's Authorized Other Sports Official. As applicable, any other physician, advance practice provider, medical student, or other health professional student that will be observing or involved in the sensitive examination for educational or training purposes was discussed with the Patient or Authorized Other Sports Official. The Patient or Authorized Other Sports Official has agreed to proceed with the sensitive examination. (Sensitive examination includes inspection and/or palpation of the breasts, pelvis, prostate and anorectal regions). EXAM: LMP 02/24/2025 GENERAL: pleasant, female in no apparent distress HEENT: Normocephalic and atraumatic CHEST: Normal inspiratory effort ABDOMEN: soft, non-tender, and no masses PELVIC: external genitalia normal, normal Bartholin's glands, urethra, [place]'s glands, no vulvar lesions, no cervical lesions, good vaginal support, physiologic discharge present, normal appearing perineal body and perianal region, IUD strings visible BIMANUAL: uterus normal size, shape and consistency, no adnexal masses, non-tender, and no cervical motion tenderness NEURO: exam grossly non-focal EXTREMITIES: normal ASSESSMENT AND PLAN: Assessment & Plan examination or test, negative result Orders: UA DIP,URINE HCG (POC) DUB (dysfunctional uterine bleeding) Orders: PELVIC US WHI; Future IUD (intrauterine device) in place Orders: PELVIC US WHI; Future test negative today. Discussed bleeding expectations with IUD. IUD strings noted on exam today. Check pelvic US. Tina Power, Medical Decision Making: Problems: Low: Acute, uncomplicated illness or injury Data: Unique test(s) ordered: 2 Medical Decision Making Level: 3 - Low documented in this encounter [facility] 05-28-2025 Instructions Jaqueline Cardona APRN.[facility] - 05/28/2025 8:46 AM EDT AFTER VISIT CARE BOTOX INJECTION While these procedures can be extremely helpful as part of your headache treatment plan, they can irritate the muscles and tissues in your head, neck and shoulders. Proper follow-up care is important to avoid muscle spasms and temporary pain increase within the following 3-5 days after your clinic visit. Here are some tips to help decrease side-effects that may occur and maximize the effectiveness of your pain relief -HYDRATION Hydration is important to help nourish your muscles and tissues. Drink 60-80 oz of non caffeinated fluid at least for 3 days after your visit. -REST Rest will help avoid further irritation of muscle and tissues. Remember that you need to give your body time to adjust. NO strenuous activity for at least the first 24 hours after your visit. Gentle stretching, yoga, meditation or even swimming is OK and encouraged. -ICE/HEAT Since these procedures irritate muscles, there can be some swelling. Alternating ice and heat every 3-5 times per day may help decrease this, while also optimizing pain relief Use cool gel packs for ice for 10 min. Use a warm moist towel covered with a dry towel on neck and shoulders. Alternate stretching each side of the neck. -STRETCHING Slow, gentle stretching of the neck and shoulders once every hour is helpful to avoid muscle spasms. -TREAT MUSCLE SPASMS If you are already prescribed a muscle relaxer such as baclofen, tizanidine or flexeril, use as directed. If you do not have one, talk to your provider to find out if this would be safe for you to use. Do not rub or massage the area for 48-72 hours. -OTHER No hair dyes or permanents for 24 hours. If you are paying out of pocket for Botox go online to Botox Savings Program and see if you qualify for reimbursement. Return in 3 months for your next Botox Injection documented in this encounter [facility] 05-28-2025 History of Presen t illness Narrative Images from the original note were not included. Headache Center Follow-up Visit Miscellaneous Patient Concerns: Good improvement following initial Botox as shown below. Starting to wear off over the past few weeks. Feels her jaw plays a role, interested in adding masseter injections today. Impression: Chronic migraine without aura, intractable, without status migrainosus (primary encounter diagnosis) Follow-Up Onabotulinum Toxin A (BotoxTM) for Migraine Indication: Chronic Intractable Migraine Treatment #: 2 Referral Expiration: 07/08/2025 Prior to the initiation of the FIRST treatment with Onabotulinum Toxin A, the patient reported the following average headache frequency over the past 3 MONTHS: Number of moderate-severe migraine days/month: 20 Number of mild migraine days/month: 10 Number of headache free days/month: 0 (0 headache-free hours) Migraine severity: 08/28 After treatment with Onabotulinum Toxin A: Number of moderate-severe migraine days/month: 8 Number of mild migraine days/month: 7 Number of headache free days/month: 15 (360 headache-free hours) Patient reduction in overall migraine days: Yes Patient reduction in moderate-severe migraine days: Yes Patient reduction of headache hours by 100 hours or more: Yes (reduction of 360 hours) Individual has obtained clinical benefit deemed significant by individual or prescriber (Y/N): Yes Patient's quality of life and ability to perform ADLs has improved (Y/N): Yes Side effects: none Wearing off: Yes The patient has been assessed for disorders which could contribute to breathing or swallowing difficulty, and there is no contraindication with PREEMPT Botox. There is no documented allergic reaction/hypersensitivity to any botulinum toxin and there is no active infection at proposed injection site. HEADACHE SCORES: 04/23/2024 Headache Questions ID Migraine Screener: 3 (Positive) ER visits in the last year: 0 Hospital stays in the last year: 0 Limited ADLs in the last month: 15 Days missed from work or school in the last month: 3 Days headache pain free in the last month: 15 Days per month with ALL of the following symptoms - decreased productivity, light sensitivity and nausea: 8 PRN medication usage in the last month: 15 04/23/2024 HIT-6 HIT-6 67 (Severe impact) 04/23/2024 OCTAVIO - 2/7 SCORES OCTAVIO-2 Score 1 04/23/2024 Migraine Specific QOL - Higher scores indicate better HRQL Role Function-Restrictive Transformed Score (range: 0-100) 34.29 Role Function-Preventive Transformed Score (range: 0-100) 45 Emotional Function Transformed Score (range: 0-100) 53.33 04/23/2024 PHQ-9 Score 12 BP 134/89 Pulse 76 Wt 69.9 kg (154 lb) LMP 02/24/2025 (Exact Date) BMI 28.17 kg/m Patient name: Maricruz Tejada : 2005 ALLERGIES Allergen Reactions Codeine Tramadol Itching, Other: See Comments Dizziness UNIVERSAL PROTOCOL / SAFETY CHECKLIST Procedure: Onabotulinum toxin A for migraine Informed Consent Consent Obtained: Written [place] Protocol A moment to CARE was completed SIGN IN Personnel directly involved with the procedure wore the appropriate PPE Special Equipment: N/A Patient/Surrogate Stated/Verified: Patient name, Date of , Relevant allergies and Intended procedure TIME OUT No relevant labs, photos, and/or imaging studies were applicable for review. Consent documented and matches the intended procedure No correct side/site applicable for marking and visibility. No medications required for procedure. No fire risk assessment and interventions applicable. No implant(s) inserted. SIGN OUT No specimen collected. Written Consent Obtained: Written LOT #: [id number] Expiration Date: Month: 9 Year: 2026 Second vial: LOT #: [id number] Expiration Date: Month: Year: 2026 Injection Sites Left (Units) Left (Sites) Right (Units) Right (Sites) TOTAL (Units) Bartacker 5 1 5 1 10 Procerus Units: 5 Sites: 1 5 Frontalis 10 2 10 2 20 Temporalis optional follow the pain 20 5 4 1 20 5 4 1 50 Occipitalis optional follow the pain 15 5 3 1 15 5 3 1 40 Cervical PSP 10 2 10 2 20 Trapezius optional follow the pain 15 7.5 3 2 15 7.5 3 2 45 Masseter 5 1 5 1 10 Total Units used: 200 Total Units wasted: 0 Patient tolerated procedure well. Prior Therapies Duration of Use Dose Side effect Analgesic Hydrocodone/Acetaminophen (Vicodin, [place]) Tramadol (Ultram) Anti-Anxiety Buspirone (Buspar) Anti-Depressant and Antipsychotic Bupropion (Wellbutrin) Duloxetine (Cymbalta) Paroxetine (Paxil) Sertraline (Zoloft) Antiemetics Ondansetron Anti-Migraine Eletriptan (Relpax) Naratriptan (Amerge) Rizatriptan (Maxalt) Blood Pressure Lisinopril (Zestril) Metoprolol (Lopressor,Toprol XL) Muscle Relaxer Baclofen (Lioresal) Other Medications Dextroamphetamine (Adderal) Prednisone Over the Counter Medications Acetaminophen (Tylenol) Acetaminophen/Aspirin/Caffeine (Excedrin, Goody s) Aspirin Ibuprofen (Advil, Motrin) Naproxen sodium (Aleve) Jaqueline Cardona APRN.[facility] documented in this encounter [facility] 05-28-2025 Note HNO ID: [id number] Author: JAQUELINE CARDONA APRN.CNP Service: ? Author Type: Nurse Practitioner Type: Progress Notes Filed: 05/28/2025 09:02 Note Text: Headache Center Follow-up Visit Miscellaneous Patient Concerns: Good improvement following initial Botox as shown below. Starting to wear off over the past few weeks. Feels her jaw plays a role, interested in adding masseter injections today. Impression: Chronic migraine without aura, intractable, without status migrainosus (primary encounter diagnosis) Follow-Up Onabotulinum Toxin A (BotoxTM) for Migraine Indication: Chronic Intractable Migraine Treatment #: 2 Referral Expiration: 07/08/2025 Prior to the initiation of the FIRST treatment with Onabotulinum Toxin A, the patient reported the following average headache frequency over the past 3 MONTHS: Number of moderate-severe migraine days/month: 20 Number of mild migraine days/month: 10 Number of headache free days/month: 0 (0 headache-free hours) Migraine severity: 10/10 After treatment with Onabotulinum Toxin A: Number of moderate-severe migraine days/month: 8 Number of mild migraine days/month: 7 Number of headache free days/month: 15 (360 headache-free hours) Patient reduction in overall migraine days: Yes Patient reduction in moderate-severe migraine days: Yes Patient reduction of headache hours by 100 hours or more: Yes (reduction of 360 hours) Individual has obtained clinical benefit deemed significant by individual or prescriber (Y/N): Yes Patient's quality of life and ability to perform ADLs has improved (Y/N): Yes Side effects: none Wearing off: Yes The patient has been assessed for disorders which could contribute to breathing or swallowing difficulty, and there is no contraindication with PREEMPT Botox. There is no documented allergic reaction/hypersensitivity to any botulinum toxin and there is no active infection at proposed injection site. HEADACHE SCORES: 04/23/2024 Headache Questions ID Migraine Screener: 3 (Positive) ER visits in the last year: 0 Hospital stays in the last year: 0 Limited ADLs in the last month: 15 Days missed from work or school in the last month: 3 Days headache pain free in the last month: 15 Days per month with ALL of the following symptoms - decreased productivity, light sensitivity and nausea: 8 PRN medication usage in the last month: 15 04/23/2024 HIT-6 HIT-6 67 (Severe impact) 04/23/2024 OCTAVIO - 2/7 SCORES OCTAVIO-2 Score 1 04/23/2024 Migraine Specific QOL - Higher scores indicate better HRQL Role Function-Restrictive Transformed Score (range: 0-100) 34.29 Role Function-Preventive Transformed Score (range: 0-100) 45 Emotional Function Transformed Score (range: 0-100) 53.33 04/23/2024 PHQ-9 Score 12 BP 134/89 Pulse 76 Wt 69.9 kg (154 lb) LMP 02/24/2025 (Exact Date) BMI 28.17 kg/m? Patient name: Maricruz Tejada : 2005 ALLERGIES Allergen Reactions Codeine Tramadol Itching, Other: See Comments Dizziness UNIVERSAL PROTOCOL / SAFETY CHECKLIST Procedure: Onabotulinum toxin A for migraine Informed Consent Consent Obtained: Written [place] Protocol A moment to CARE was completed SIGN IN Personnel directly involved with the procedure wore the appropriate PPE Special Equipment: N/A Patient/Surrogate Stated/Verified: Patient name, Date of , Relevant allergies and Intended procedure TIME OUT No relevant labs, photos, and/or imaging studies were applicable for review. Consent documented and matches the intended procedure No correct side/site applicable for marking and visibility. No medications required for procedure. No fire risk assessment and interventions applicable. No implant(s) inserted. SIGN OUT No specimen collected. Written Consent Obtained: Written LOT #: [id number] Expiration Date: Month: : 2026 Second vial: LOT #: [id number] Expiration Date: Month: 9 Year: 2026 Injection Sites Left (Units) Left (Sites) Right (Units) Right (Sites) TOTAL (Units) Bartacker 5 1 5 1 10 Procerus Units: 5 Sites: 1 5 Frontalis 10 2 10 2 20 Temporalis optional follow the pain 20 5 4 1 20 5 4 1 50 Occipitalis optional follow the pain 15 5 3 1 15 5 3 1 40 Cervical PSP 10 2 10 2 20 Trapezius optional follow the pain 15 7.5 3 2 15 7.5 3 2 45 [place] 5 1 5 1 10 Total Units used: 200 Total Units wasted: 0 Patient tolerated procedure well. Prior Therapies Duration of Use Dose Side effect Analgesic Hydrocodone/Acetaminophen (Vicodin, [place]) Tramadol (Ultram) Anti-Anxiety Buspirone (Buspar) Anti-Depressant and Antipsychotic Bupropion (Wellbutrin) Duloxetine (Cymbalta) Paroxetine (Paxil) Sertraline (Zoloft) Antiemetics Ondansetron Anti-Migraine Eletriptan (Relpax) Naratriptan (Amerge) Rizatriptan (Maxalt) Blood Pressure Lisinopril (Zestril) Metoprolol (Lopressor,Toprol XL) Muscle Relaxe (more content not included)... [facility] 05-27-2025 Note HNO ID: [id number] Author: ANNALISA PRESLEY APRN.SENIOR ACCOUNT CLERK Service: ? Author Type: Nurse Practitioner Type: Progress Notes Filed: 05/27/2025 18:28 Note Text: This is a 19 year old female who presents today with: Med check ASSESSMENT/PLAN: 1. Brain fog - ICD9: 799.59, ICD10: R41.89 (primary diagnosis) Decrease Cymbalta regimen to 30 mg daily. Continue paxil as prescribed. Reach out in 4-6 weeks if wanting to decrease Cymbalta more. Pt aware of needing gradual taper if wanting to decrease more. Discussed importance of taking routinely. - DULOXETINE 30 MG CAPSULE,DELAYED RELEASE 2. Depression, unspecified depression type - ICD9: 311, ICD10: F32.A See above. - DULOXETINE 30 MG CAPSULE,DELAYED RELEASE HISTORY OF PRESENT ILLNESS: Depression: - Recent decrease in Cymbalta dosage due to brain fog. - Currently taking Paxil 10 mg. - Experienced severe depression during recent menstrual period, described as non-stop crying and feeling upset the whole time. - Took Cymbalta 60 mg (borrowed from mother) for a few days during this period, which improved symptoms but caused gastrointestinal upset. - Used leftover Zofran for nausea with relief. - Reports feeling a lot happier before the onset of menstruation and improved brain fog - Over the last two weeks, felt down, depressed, or hopeless for about five days. - No suicidal ideation. - [place] nervous, anxious, or on edge for 2-3 days in the past two weeks. - Able to stay busy and maintain interest in activities. - Working light duty now d/t shoulder surgery in March Dysuria: - Maricruz suspects UTI; experiencing urinary frequency and incomplete emptying. - Mild, intermittent suprapubic and back pain. - History of UTIs, previously managed with Azo. - Denies fever, chills PAST MEDICAL HISTORY: PAST MEDICAL HISTORY Diagnosis Date Calculus of kidney Essential hypertension Migraine headache with aura PMDD (premenstrual dysphoric disorder) 2018 POTS (postural orthostatic tachycardia syndrome) borderline Rotator cuff dysfunction, right partial tear Syncope and collapse Tachycardia PAST SURGICAL HISTORY Procedure Laterality Date INSERTION OF IUD 10/24/2021 removed 09/14/2023 PAST SURGICAL HISTORY OF removal of renal calculi via lithotrypsy PAST SURGICAL HISTORY OF 06/24/2014 PCP of right thumb PAST SURGICAL HISTORY OF Right 04/03/2025 Shoulder arthroscopy with repair slap lesion UNLISTED PROCEDURE LACRIMAL SYSTEM 02/18/2004 DR WHEELER ALLERGIES Codeine and Tramadol MEDICATIONS Current Outpatient Medications Medication Sig baclofen 10 mg tablet Take 1 tablet by mouth once daily as needed. ondansetron (ZOFRAN) 4 mg tablet Take 1 tablet by mouth every 8 hours as needed. metoprolol succinate ER (TOPROL XL) 100 mg Take 1.5 tablets by mouth once daily. levonorgestrel (MIRENA) 21 mcg/24hr (up to 8 yrs) 52 mg IUD 1 Each by INTRAUTERINE route as directed. tretinoin (RETIN-A) 0.025 % topical cream Mix 50/50 with moisturizer and apply to the affected areas of the face every night. Azelaic Acid 15 % gel Apply a thin layer to the full face once daily in the morning ubrogepant (UBRELVY) 100 mg tablet Take 1 tab at migraine onset. May repeat once in 2 hours as needed. Cholecalciferol, Vitamin D3, 50 mcg (2,000 unit) cap Take 1 capsule by mouth once daily. DULoxetine (CYMBALTA) 40 mg cpDR Take 1 capsule by mouth once daily. triamterene-hydroCHLOROthiazide (MAXZIDE) 75-50 mg per tablet Take 1 tablet by mouth once daily. lisinopril (ZESTRIL) 20 mg tablet Take 1 tablet by mouth once daily. PARoxetine (PAXIL) 10 mg tablet Take 1 tablet by mouth once daily. Current Facility-Administered Medications Medication Dose Route Frequency [START ON 05/28/2025] onabotulinum toxin type A 200 Units injection (BOTOX) 200 Units INTRAMUSCULAR ONCE FAMILY HISTORY Problem Relation Age of Onset Hypertension Mother Started in mid-30's Hypertension Father No Known Problems Sister No Known Problems Brother Hypertension Maternal Grandmother Hypertension Maternal Grandfather Lipids Maternal Grandfather other (FIBROMYALGIA) Paternal Grandmother Social History Tobacco Use Smoking status: Never Smokeless tobacco: Never Vaping Use Vaping status: Never Used Substance Use Topics Alcohol use: No Drug use: No REVIEW OF SYSTEMS Constitutional: (-) fever Gastrointestinal: (+) nausea Genitourinary: (+) urinary frequency, (+) dysuria, (+) suprapubic pain Musculoskeletal: (+) back pain Psychiatric: (+) depressed mood, (+) anxiety, (-) anhedonia, (-) suicidal ideation See HPI EXAM: BP 128/90 (BP Site: Left Arm, BP Position: Sitting, BP Cuff Size: Regular Adult) Pulse 71 Resp 12 Wt 70 kg (154 lb 6.4 oz) LMP 02/24/2025 (Exact Date) SpO2 99% BMI 28.24 kg/m? PHYSICAL EXAM: General Appearance: Well appearing, alert, in no acute distress, well-hydrated, well nourished. Psych: aff (more content not included)... [facility] 05-27-2025 History of Presen t illness Narrative This is a 19 year old female who presents today with: Med check ASSESSMENT/PLAN: 1. Brain fog - ICD9: 799.59, ICD10: R41.89 (primary diagnosis) Decrease Cymbalta regimen to 30 mg daily. Continue paxil as prescribed. Reach out in 4-6 weeks if wanting to decrease Cymbalta more. Pt aware of needing gradual taper if wanting to decrease more. Discussed importance of taking routinely. - DULOXETINE 30 MG CAPSULE,DELAYED RELEASE 2. Depression, unspecified depression type - ICD9: 311, ICD10: F32.A See above. - DULOXETINE 30 MG CAPSULE,DELAYED RELEASE HISTORY OF PRESENT ILLNESS: Depression: - Recent decrease in Cymbalta dosage due to brain fog. - Currently taking Paxil 10 mg. - Experienced severe depression during recent menstrual period, described as non-stop crying and feeling upset the whole time. - Took Cymbalta 60 mg (borrowed from mother) for a few days during this period, which improved symptoms but caused gastrointestinal upset. - Used leftover Zofran for nausea with relief. - Reports feeling a lot happier before the onset of menstruation and improved brain fog - Over the last two weeks, felt down, depressed, or hopeless for about five days. - No suicidal ideation. - [place] nervous, anxious, or on edge for 2-3 days in the past two weeks. - Able to stay busy and maintain interest in activities. - Working light duty now d/t shoulder surgery in March Dysuria: - Mar[place]ruz suspects UTI; experiencing urinary frequency and incomplete emptying. - Mild, intermittent suprapubic and back pain. - History of UTIs, previously managed with Azo. - Denies fever, chills PAST MEDICAL HISTORY: PAST MEDICAL HISTORY Diagnosis Date Calculus of kidney Essential hypertension Migraine headache with aura PMDD (premenstrual dysphoric disorder) 2018 POTS (postural orthostatic tachycardia syndrome) borderline Rotator cuff dysfunction, right partial tear Syncope and collapse Tachycardia PAST SURGICAL HISTORY Procedure Laterality Date INSERTION OF IUD 10/24/2021 removed 09/14/2023 PAST SURGICAL HISTORY OF removal of renal calculi via lithotrypsy PAST SURGICAL HISTORY OF 06/24/2014 PCP of right thumb PAST SURGICAL HISTORY OF Right 04/03/2025 Shoulder arthroscopy with repair slap lesion UNLISTED PROCEDURE LACRIMAL SYSTEM 02/18/2004 DR WHEELER ALLERGIES Codeine and Tramadol MEDICATIONS Current Outpatient Medications Medication Sig baclofen 10 mg tablet Take 1 tablet by mouth once daily as needed. ondansetron (ZOFRAN) 4 mg tablet Take 1 tablet by mouth every 8 hours as needed. metoprolol succinate ER (TOPROL XL) 100 mg Take 1.5 tablets by mouth once daily. levonorgestrel (MIRENA) 21 mcg/24hr (up to 8 yrs) 52 mg IUD 1 Each by INTRAUTERINE route as directed. tretinoin (RETIN-A) 0.025 % topical cream Mix 50/50 with moisturizer and apply to the affected areas of the face every night. Azelaic Acid 15 % gel Apply a thin layer to the full face once daily in the morning ubrogepant (UBRELVY) 100 mg tablet Take 1 tab at migraine onset. May repeat once in 2 hours as needed. Cholecalciferol, Vitamin D3, 50 mcg (2,000 unit) cap Take 1 capsule by mouth once daily. DULoxetine (CYMBALTA) 40 mg cpDR Take 1 capsule by mouth once daily. triamterene-hydroCHLOROthiazide (MAXZIDE) 75-50 mg per tablet Take 1 tablet by mouth once daily. lisinopril (ZESTRIL) 20 mg tablet Take 1 tablet by mouth once daily. PARoxetine (PAXIL) 10 mg tablet Take 1 tablet by mouth once daily. Current Facility-Administered Medications Medication Dose Route Frequency [START ON 05/28/2025] onabotulinum toxin type A 200 Units injection (BOTOX) 200 Units INTRAMUSCULAR ONCE FAMILY HISTORY Problem Relation Age of Onset Hypertension Mother Started in mid-30's Hypertension Father No Known Problems Sister No Known Problems Brother Hypertension Maternal Grandmother Hypertension Maternal Grandfather Lipids Maternal Grandfather other (FIBROMYALGIA) Paternal Grandmother Social History Tobacco Use Smoking status: Never Smokeless tobacco: Never Vaping Use Vaping status: Never Used Substance Use Topics Alcohol use: No Drug use: No REVIEW OF SYSTEMS Constitutional: (-) fever Gastrointestinal: (+) nausea Genitourinary: (+) urinary frequency, (+) dysuria, (+) suprapubic pain Musculoskeletal: (+) back pain Psychiatric: (+) depressed mood, (+) anxiety, (-) anhedonia, (-) suicidal ideation See HPI EXAM: BP 128/90 (BP Site: Left Arm, BP Position: Sitting, BP Cuff Size: Regular Adult) Pulse 71 Resp 12 Wt 70 kg (154 lb 6.4 oz) LMP 02/24/2025 (Exact Date) SpO2 99% BMI 28.24 kg/m PHYSICAL EXAM: General Appearance: Well appearing, alert, in no acute distress, well-hydrated, well nourished. Psych: affect is appropriate, hygiene good, pleasant ASSESSMENT/PLAN: 1. Depression, unspecified depression type - ICD9: 311, ICD10: F32.A (primary diagnosis) 2. OCTAVIO (generalized anxiety disorder) - ICD9: 300.02, ICD10: F41.1 3. Menstrual-related mood disorder - ICD9: 625.4, ICD10: F06.30 - DULOXETINE 40 MG CAPSULE,DELAYED RELEASE - start new dose, hoping to find a dose in middle that wont cause foggy feeling but manage your depression during stressors or situational anxiety 4. Brain fog - ICD9: 799.59, ICD10: R41.89 - decreased duloxetine helped, but issues with depression on lower dose of 30mg 5. Urinary frequency - ICD9: 788.41, ICD10: R35.0 Acute 6. Suprapubic abdominal pain - ICD9: 789.09, ICD10: R10.2 7. Flank pain - ICD9: 789.09, ICD10: R10.9 - Patient education for prevention given - UA DIP, URINE (POC)- +for moderate blood but was recently on her period - BACTERIAL CULTURE, URINE- sent out as UA dip negative 8. Screening for depression - ICD9: V79.0, ICD10: Z13.31 - DEPRESSION SCREENING 9. Encounter for screening examination for other mental health and behavioral disorders - ICD9: V79.8, ICD10: Z13.39 - ANXIETY SCREENING Discussed treatment plan and patient voices understanding. Patient's questions answered appropriately. Medications and potential side effects were discussed and patient voices understanding. Return to the office as scheduled or as needed for worsening/no improvement. Annalisa Presley APRN.SENIOR ACCOUNT CLERK Recording using Attracta software for draft documentation of the visit was discussed with the patient/authorized contact representative; all questions welcomed and answered. Patient/authorized contact representative agreed to proceed documented in this encounter [facility] 05-19-2025 Note HNO ID: [id number] Author: NETO MCARTHUR MD Service: ? Author Type: Physician Type: Progress Notes Filed: 05/19/2025 09:23 Note Text: History: Maricruz Tejada is a 19 year old female who returns 6 weeks post labral repair of the Right shoulder. She is doing well. She quantitates the pain as 1/10. She denies chest pain, SOB, fever, chills, or drainage. No calf pain reported. She is taking Advil for pain management purposes. Physical Examination: She is alert and oriented and in no acute distress. The portals are well healed. No erythema or drainage noted. Passive supine FE is 165 degrees and passive ER is 65 degrees. Negative Peter?s. Good Rom of elbow and wrist noted. NVI distally. Assessment: Status post labral repair of shoulder (primary encounter diagnosis) Plan: She has completed their formal Phase I physical therapy program. They are to begin Phase II at this time. They can discontinue the sling but restrictions were relayed to the patient. They may drive but only if comfortable behind a wheel. Ice as instructed. She is taking Advil for pain management purposes if necessary. They understand the risks and benefits of these medications and would like to proceed. Return for follow-up in 6 weeks. Neto Mcarthur MD [facility] 05-19-2025 History of Presen t illness Narrative History: Maricruz Tejada is a 19 year old female who returns 6 weeks post labral repair of the Right shoulder. She is doing well. She quantitates the pain as 1/10. She denies chest pain, SOB, fever, chills, or drainage. No calf pain reported. She is taking Advil for pain management purposes. Physical Examination: She is alert and oriented and in no acute distress. The portals are well healed. No erythema or drainage noted. Passive supine FE is 165 degrees and passive ER is 65 degrees. Negative Peter s. Good Rom of elbow and wrist noted. NVI distally. Assessment: Status post labral repair of shoulder (primary encounter diagnosis) Plan: She has completed their formal Phase I physical therapy program. They are to begin Phase II at this time. They can discontinue the sling but restrictions were relayed to the patient. They may drive but only if comfortable behind a wheel. Ice as instructed. She is taking Advil for pain management purposes if necessary. They understand the risks and benefits of these medications and would like to proceed. Return for follow-up in 6 weeks. Neto Mcarthur MD documented in this encounter [facility] 05-15-2025 Note HNO ID: [id number] Author: HAYLEY LOZOYA PA-C Service: ? Author Type: Physician Battery Charger Tester Type: Progress Notes Filed: 05/15/2025 08:41 Note Text: This note was created using TAPQUADriter. Subjective Maricruz Tejada is a 19 year old female. Patient is a 19-year-old female who complains of worsening congestion, sinus pressure, ear pain, sore throat and cough that she has been experiencing for the past 1 week. Patient reports no fever, chills or myalgia. Patient does work at 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 Review of Systems HENT: Positive for congestion, ear pain, postnasal drip, sinus pressure and sore throat. Respiratory: Positive for cough. All other systems reviewed and are negative. Objective BP 129/90 Pulse 69 Temp 36.2 ?C (97.1 ?F) Resp 18 Wt 71.9 kg (158 lb 8.2 oz) LMP 02/24/2025 (Exact Date) SpO2 100% BMI 28.99 kg/m? Physical Exam Vitals and nursing note reviewed. Constitutional: Appearance: Normal appearance. She is normal weight. HENT: Head: Normocephalic and atraumatic. Right Ear: Tympanic membrane, ear canal and external ear normal. Left Ear: Tympanic membrane, ear canal and external ear normal. Nose: Congestion present. Mouth/Throat: Mouth: Mucous membranes are moist. Pharynx: Oropharynx is clear. Eyes: Extraocular Movements: Extraocular movements intact. Conjunctiva/sclera: Conjunctivae normal. Pupils: Pupils are equal, round, and reactive to light. Cardiovascular: Rate and Rhythm: Normal rate and regular rhythm. Pulses: Normal pulses. Heart sounds: Normal heart sounds. Pulmonary: Effort: Pulmonary effort is normal. Breath sounds: Normal breath sounds. Musculoskeletal: Cervical back: Normal range of motion and neck supple. Skin: General: Skin is warm and dry. Capillary Refill: Capillary refill takes less than 2 seconds. Neurological: General: No focal deficit present. Mental Status: She is alert and oriented to person, place, and time. Psychiatric: Mood and Affect: Mood normal. Behavior: Behavior normal. Thought Content: Thought content normal. Judgment: Judgment normal. Assessment and Plan Physical exam findings as noted above. Patient was provided with prescriptions for Augmentin 875-125 mg and Tessalon 100 mg. Supportive care instructions were discussed the patient verbalizes excellent understanding of same. CLINICAL IMPRESSION: Acute Sinusitis ASSESSMENT/PLAN: 1. Acute non-recurrent sinusitis, unspecified location - ICD9: 461.9, ICD10: J01.90 - AMOXICILLIN 875 MG-POTASSIUM CLAVULANATE 125 MG TABLET - BENZONATATE 100 MG CAPSULE MDM Risk of Complications, Morbidity, and/or Mortality Presenting problems: low Diagnostic procedures: low Management options: stiven Lozoya PA-C [facility] 05-15-2025 History of Presen t illness Narrative This note was created using NoteWriter. Subjective Maricruz Tejada is a 19 year old female. Patient is a 19-year-old female who complains of worsening congestion, sinus pressure, ear pain, sore throat and cough that she has been experiencing for the past 1 week. Patient reports no fever, chills or myalgia. Patient does work at 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 Review of Systems HENT: Positive for congestion, ear pain, postnasal drip, sinus pressure and sore throat. Respiratory: Positive for cough. All other systems reviewed and are negative. Objective BP 129/90 Pulse 69 Temp 36.2 C (97.1 F) Resp 18 Wt 71.9 kg (158 lb 8.2 oz) LMP 02/24/2025 (Exact Date) SpO2 100% BMI 28.99 kg/m Physical Exam Vitals and nursing note reviewed. Constitutional: Appearance: Normal appearance. She is normal weight. HENT: Head: Normocephalic and atraumatic. Right Ear: Tympanic membrane, ear canal and external ear normal. Left Ear: Tympanic membrane, ear canal and external ear normal. Nose: Congestion present. Mouth/Throat: Mouth: Mucous membranes are moist. Pharynx: Oropharynx is clear. Eyes: Extraocular Movements: Extraocular movements intact. Conjunctiva/sclera: Conjunctivae normal. Pupils: Pupils are equal, round, and reactive to light. Cardiovascular: Rate and Rhythm: Normal rate and regular rhythm. Pulses: Normal pulses. Heart sounds: Normal heart sounds. Pulmonary: Effort: Pulmonary effort is normal. Breath sounds: Normal breath sounds. Musculoskeletal: Cervical back: Normal range of motion and neck supple. Skin: General: Skin is warm and dry. Capillary Refill: Capillary refill takes less than 2 seconds. Neurological: General: No focal deficit present. Mental Status: She is alert and oriented to person, place, and time. Psychiatric: Mood and Affect: Mood normal. Behavior: Behavior normal. Thought Content: Thought content normal. Judgment: Judgment normal. Assessment and Plan Physical exam findings as noted above. Patient was provided with prescriptions for Augmentin 875-125 mg and Tessalon 100 mg. Supportive care instructions were discussed the patient verbalizes excellent understanding of same. CLINICAL IMPRESSION: Acute Sinusitis ASSESSMENT/PLAN: 1. Acute non-recurrent sinusitis, unspecified location - ICD9: 461.9, ICD10: J01.90 - AMOXICILLIN 875 MG-POTASSIUM CLAVULANATE 125 MG TABLET - BENZONATATE 100 MG CAPSULE MDM Risk of Complications, Morbidity, and/or Mortality Presenting problems: low Diagnostic procedures: low Management options: stiven Lozoya PA-C documented in this encounter [facility] 05-05-2025 History of Presen t illness Narrative Program_ID:[id number] Access Code: [email or web address] URL: [email or web address] Date: 05-05-2025 Prepared By: Luis Enrique Seras Program Notes Exercises - Circular Shoulder Pendulum with Table Support - 2-3 x daily - 7 x weekly - 2 sets - 10 reps - Supine Shoulder External Rotation with Dowel at 20 Degrees of Abduction - 1 x daily - 7 x weekly - 3 sets - 10 reps - Supine Shoulder Flexion PROM - 2-3 x daily - 7 x weekly - 2 sets - 10 reps - Seated Elbow Flexion and Extension AROM - 2-3 x daily - 7 x weekly - 2 sets - 10 reps - Standing Shoulder Posterior Capsule Stretch - 1 x daily - 7 x weekly - 1 sets - 10 reps - Standing Shoulder Internal Rotation AAROM Behind Back with Towel - 1 x daily - 7 x weekly - 1 sets - 10 reps - Standing Isometric Shoulder Flexion with Doorway - Arm Bent - 1 x daily - 7 x weekly - 3 sets - 10 reps - Standing Isometric Shoulder Extension with Doorway - Arm Bent - 1 x daily - 7 x weekly - 3 sets - 10 reps - Standing Isometric Shoulder Abduction with Doorway - Arm Bent - 1 x daily - 7 x weekly - 3 sets - 10 reps - Seated Shoulder Flexion AAROM with Sadie Behind - 1 x daily - 7 x weekly - 3 sets - 10 reps - Seated Shoulder Scaption AAROM with Sadie at Side - 1 x daily - 7 x weekly - 3 sets - 10 reps Episode Visit Count: 3 Therapist That Will Accept/Oversee The Plan Of Care: Luis Enrique Sears, PT, DPT Start of Care Date: 04/06/25 Onset Date: 12/20/23 Plan of Care Certification Date: 11/27/24 Next Certification Due Date: 11/27/24 REHABILITATION AND SPORTS THERAPY PHYSICAL THERAPY TREATMENT NOTE ASSESSMENT: Maricruz Tejada tolerated the session with no issues. She demonstrated low pain levels, improvements in shoulder ROM, did have some discomfort during sadie elevation in scapular plan. Pt is progressing as expected, have progressed all exercises at this time on the protocol, pt can continue current HEP independently, following back up with us May 20. The patient will continue to benefit from ongoing skilled physical therapy for reassessment by supervising therapist. PLAN FOR NEXT VISIT: reassessment SUBJECTIVE: Patient reports a little bit of pain, she was walking, tripped and caught herself with the R arm - planning to reach out via [employer] messenger to let him know of this. Patient remains in sling - MD wanted to keep her sling on until May 19. Rash has improved overall. Has been compliant with HEP. Pain: Pain Pain Level: 1 Pain Location: Shoulder - Right Description: Aching Frequency: Continuous OBJECTIVE MEASURES WITH LEVEL OF FUNCTION: UE PROM R Shoulder Flex: 130 Degrees R Shoulder External Rotation: 15 Degrees TREATMENT: Therapeutic Exercise: 1: cane flexion past 90 degrees 2x10 2: cane ER 2x10 3: towel IR stretch 1x10 5 hold 4: cross body adduction 1x10 5 hold 5: sadie flexion x2' 6: updated and reviewed HEP, included exercises from today Skilled Intervention: Patient was educated in proper exercise technique and purpose for exercises. Reviewed and educated patient on additions/changes for home exercise program as above (*). Skilled judgment was used in selection of appropriate interventions. Provided written instruction for home exercise program to facilitate proper performance and compliance. Patient education as noted. Billing Therapeutic Exercise Treatment Minutes: 22 Skilled Treatment Time Minutes (timed and untimed codes): 22 Total Session Time (minutes): 22 Session Start Time : 1338 Session Stop Time : 1400 Jolly Monroy PTA documented in this encounter [facility] 05-05-2025 Note HNO ID: [id number] Author: JOLYL MONROY PTA Service: ? Author Type: Corrugator Operator Type: Progress Notes Filed: 05/05/2025 14:16 Note Text: Episode Visit Count: 3 Therapist That Will Accept/Oversee The Plan Of Care: Luis Enrique Sears PT, DPT Start of Care Date: 04/06/25 Onset Date: 12/20/23 Plan of Care Certification Date: 11/27/24 Next Certification Due Date: 11/27/24 REHABILITATION AND SPORTS THERAPY PHYSICAL THERAPY TREATMENT NOTE ASSESSMENT: Maricruz Tejada tolerated the session with no issues. She demonstrated low pain levels, improvements in shoulder ROM, did have some discomfort during sadie elevation in scapular plan. Pt is progressing as expected, have progressed all exercises at this time on the protocol, pt can continue current HEP independently, following back up with us May 20. The patient will continue to benefit from ongoing skilled physical therapy for reassessment by supervising therapist. PLAN FOR NEXT VISIT: reassessment SUBJECTIVE: Patient reports a little bit of pain, she was walking, tripped and caught herself with the R arm - planning to reach out via [employer] to let him know of this. Patient remains in sling - MD wanted to keep her sling on until May 19. Rash has improved overall. Has been compliant with HEP. Pain: Pain Pain Level: 1 Pain Location: Shoulder - Right Description: Aching Frequency: Continuous OBJECTIVE MEASURES WITH LEVEL OF FUNCTION: UE PROM R Shoulder Flex: 130 Degrees R Shoulder External Rotation: 15 Degrees TREATMENT: Therapeutic Exercise: 1: cane flexion past 90 degrees 2x10 2: cane ER 2x10 3: towel IR stretch 1x10 5 hold 4: cross body adduction 1x10 5 hold 5: sadie flexion x2' 6: updated and reviewed HEP, included exercises from today Skilled Intervention: Patient was educated in proper exercise technique and purpose for exercises. Reviewed and educated patient on additions/changes for home exercise program as above (*). Skilled judgment was used in selection of appropriate interventions. Provided written instruction for home exercise program to facilitate proper performance and compliance. Patient education as noted. Billing Therapeutic Exercise Treatment Minutes: 22 Skilled Treatment Time Minutes (timed and untimed codes): 22 Total Session Time (minutes): 22 Session Start Time : 1338 Session Stop Time : 1400 Jolly Monroy PTA [facility] 04-28-2025 Telephone encounter Note PT left message saying that a member of the household missed their therapy session and that the next scheduled appointment is on 05/05, at 1:30pm. [facility] 04-28-2025 Miscellaneous Notes PT left message saying that a member of the household missed their therapy session and that the next scheduled appointment is on 05/05, at 1:30pm. documented in this encounter [facility] 04-21-2025 Note HNO ID: [id number] Author: TAYLER DUNCAN APRN.SENIOR ACCOUNT CLERK Service: ? Author Type: Nurse Practitioner Type: Progress Notes Filed: 04/21/2025 11:44 Note Text: 04/21/2025 Patient presents with: Rash: To neck and trunk where right arm sling is, has been for 4-5 days SUBJECTIVE: This is a 19 year old that is here today for Above Complaints.. Developed rash to neck and across torso. Reports rash started about a week to week and a half after having surgery from a right shoulder torn labrum. Has opal suing cortisone cream to area with mild relief. Areas with rash are relate to were her sling is rubbing. Denies new medications, skin care products. Lip/tongue swelling, SOB, dyspnea or difficulty swallowing PAST MEDICAL HISTORY Diagnosis Date Calculus of kidney Essential hypertension Migraine headache with aura PMDD (premenstrual dysphoric disorder) 2018 POTS (postural orthostatic tachycardia syndrome) borderline Rotator cuff dysfunction, right partial tear Syncope and collapse Tachycardia ALLERGIES Codeine and Tramadol MEDICATIONS Current Outpatient Medications Medication Sig DULoxetine (CYMBALTA) 30 mg capsule Take 1 capsule by mouth once daily. baclofen 10 mg tablet Take 1 tablet by mouth once daily as needed. ondansetron (ZOFRAN) 4 mg tablet Take 1 tablet by mouth every 8 hours as needed. metoprolol succinate ER (TOPROL XL) 100 mg Take 1.5 tablets by mouth once daily. triamterene-hydroCHLOROthiazide (MAXZIDE) 75-50 mg per tablet Take 1 tablet by mouth once daily. levonorgestrel (MIRENA) 21 mcg/24hr (up to 8 yrs) 52 mg IUD 1 Each by INTRAUTERINE route as directed. lisinopril (ZESTRIL) 20 mg tablet Take 1 tablet by mouth once daily. tretinoin (RETIN-A) 0.025 % topical cream Mix 50/50 with moisturizer and apply to the affected areas of the face every night. Azelaic Acid 15 % gel Apply a thin layer to the full face once daily in the morning PARoxetine (PAXIL) 10 mg tablet Take 1 tablet by mouth once daily. ubrogepant (UBRELVY) 100 mg tablet Take 1 tab at migraine onset. May repeat once in 2 hours as needed. Cholecalciferol, Vitamin D3, 50 mcg (2,000 unit) cap Take 1 capsule by mouth once daily. No current facility-administered medications for this visit. Medications and allergies reviewed by this provider. SOCIAL HISTORY Social History Tobacco Use Smoking status: Never Smokeless tobacco: Never Vaping Use Vaping status: Never Used Substance Use Topics Alcohol use: No Drug use: No REVIEW OF SYSTEMS All other reviewed and negative other than HPI. OBJECTIVE: BP 122/80 Pulse 87 Resp 18 Wt 71.2 kg (157 lb) LMP 02/24/2025 (Exact Date) SpO2 98% BMI 28.72 kg/m? . Vital signs reviewed by this provider. APPEARANCE Well appearing, alert, in no acute distress, well-hydrated, well nourished. SKIN few scattered raises circular areas to posterior neck about the area her sling is resting. A few smaller similar areas to torso where sling rests against Asthma Action Plan Never done Asthma Control Test Never done Meningococcal B Vaccine(1 of 2 - Standard) Never done Depression Screening Never done Anxiety Screening Never done Hepatitis C Screening Never done HIV Screening Never done BP Controlled (<130/80) Never done Covid-19 Vaccine(2023- season) Never done DTaP,Tdap,Td Vaccine(7 - Td or Tdap) due on 09/22/2025 GC (Gonorrhea) Screening (18-24) due on 01/05/2026 Chlamydia Screening (18-24) due on 01/05/2026 Cervical Cancer Screening due on 03/03/2026 Annual PCP Team Chronic Disease Visit due on 04/16/2026 Hepatitis B Vaccine Completed HPV Vaccine Completed Influenza Vaccine Completed ASSESSMENT/PLAN: 1. Skin eruption - ICD9: 782.1, ICD10: R21 - likely related to the sling against the skin - no red flag symptoms or exam findings - red flag symptoms discussed, verbalizes understanding - would recommend she wrap another fabric around area that has direct contact to the skin. May apply steroid cream twice a day and take OTC antihistamine as directed on packaging - remove sling as allowed by surgeon - TRIAMCINOLONE ACETONIDE 0.1 % TOPICAL CREAM - follow-up with PCP care team if fails to improve to ER with red flag symptoms Tayler Podlogar, FARM MANAGER.SENIOR ACCOUNT CLERK Prescription instructions reviewed with patient as applicable. Patient advised if symptoms do not improve or if symptoms worsen sooner, to contact their primary care physician. Potential red flag symptoms discussed with the patient. Reviewed appropriate action plan to take if red flag symptoms occur. Patient agreeable to treatment plan. Medical Decision Making: Problems: Low: Acute, uncomplicated illness or injury Risk: Low: Low risk from testing/treatment Moderate: Drug management Medical Decision Making Level: 3 - Low [facility] 04-21-2025 History of Presen t illness Narrative 04/21/2025 Patient presents with: Rash: To neck and trunk where right arm sling is, has been for 4-5 days SUBJECTIVE: This is a 19 year old that is here today for Above Complaints.. Developed rash to neck and across torso. Reports rash started about a week to week and a half after having surgery from a right shoulder torn labrum. Has opal suing cortisone cream to area with mild relief. Areas with rash are relate to were her sling is rubbing. Denies new medications, skin care products. Lip/tongue swelling, SOB, dyspnea or difficulty swallowing PAST MEDICAL HISTORY Diagnosis Date Calculus of kidney Essential hypertension Migraine headache with aura PMDD (premenstrual dysphoric disorder) 2019 POTS (postural orthostatic tachycardia syndrome) borderline Rotator cuff dysfunction, right partial tear Syncope and collapse Tachycardia ALLERGIES Codeine and Tramadol MEDICATIONS Current Outpatient Medications Medication Sig DULoxetine (CYMBALTA) 30 mg capsule Take 1 capsule by mouth once daily. baclofen 10 mg tablet Take 1 tablet by mouth once daily as needed. ondansetron (ZOFRAN) 4 mg tablet Take 1 tablet by mouth every 8 hours as needed. metoprolol succinate ER (TOPROL XL) 100 mg Take 1.5 tablets by mouth once daily. triamterene-hydroCHLOROthiazide (MAXZIDE) 75-50 mg per tablet Take 1 tablet by mouth once daily. levonorgestrel (MIRENA) 21 mcg/24hr (up to 8 yrs) 52 mg IUD 1 Each by INTRAUTERINE route as directed. lisinopril (ZESTRIL) 20 mg tablet Take 1 tablet by mouth once daily. tretinoin (RETIN-A) 0.025 % topical cream Mix 50/50 with moisturizer and apply to the affected areas of the face every night. Azelaic Acid 15 % gel Apply a thin layer to the full face once daily in the morning PARoxetine (PAXIL) 10 mg tablet Take 1 tablet by mouth once daily. ubrogepant (UBRELVY) 100 mg tablet Take 1 tab at migraine onset. May repeat once in 2 hours as needed. Cholecalciferol, Vitamin D3, 50 mcg (2,000 unit) cap Take 1 capsule by mouth once daily. No current facility-administered medications for this visit. Medications and allergies reviewed by this provider. SOCIAL HISTORY Social History Tobacco Use Smoking status: Never Smokeless tobacco: Never Vaping Use Vaping status: Never Used Substance Use Topics Alcohol use: No Drug use: No REVIEW OF SYSTEMS All other reviewed and negative other than HPI. OBJECTIVE: BP 122/80 Pulse 87 Resp 18 Wt 71.2 kg (157 lb) LMP 02/24/2025 (Exact Date) SpO2 98% BMI 28.72 kg/m . Vital signs reviewed by this provider. APPEARANCE Well appearing, alert, in no acute distress, well-hydrated, well nourished. SKIN few scattered raises circular areas to posterior neck about the area her sling is resting. A few smaller similar areas to torso where sling rests against Asthma Action Plan Never done Asthma Control Test Never done Meningococcal B Vaccine(1 of 2 - Standard) Never done Depression Screening Never done Anxiety Screening Never done Hepatitis C Screening Never done HIV Screening Never done BP Controlled (<130/80) Never done Covid-19 Vaccine(2023-) Never done DTaP,Tdap,Td Vaccine(7 - Td or Tdap) due on 09/22/2025 GC (Gonorrhea) Screening (18-24) due on 01/05/2026 Chlamydia Screening (18-24) due on 01/05/2026 Cervical Cancer Screening due on 03/03/2026 Annual PCP Team Chronic Disease Visit due on 04/16/2026 Hepatitis B Vaccine Completed HPV Vaccine Completed Influenza Vaccine Completed ASSESSMENT/PLAN: 1. Skin eruption - ICD9: 782.1, ICD10: R21 - likely related to the sling against the skin - no red flag symptoms or exam findings - red flag symptoms discussed, verbalizes understanding - would recommend she wrap another fabric around area that has direct contact to the skin. May apply steroid cream twice a day and take OTC antihistamine as directed on packaging - remove sling as allowed by surgeon - TRIAMCINOLONE ACETONIDE 0.1 % TOPICAL CREAM - follow-up with PCP care team if fails to improve to ER with red flag symptoms Tayler Duncan APRN.CNP Prescription instructions reviewed with patient as applicable. Patient advised if symptoms do not improve or if symptoms worsen sooner, to contact their primary care physician. Potential red flag symptoms discussed with the patient. Reviewed appropriate action plan to take if red flag symptoms occur. Patient agreeable to treatment plan. Medical Decision Making: Problems: Low: Acute, uncomplicated illness or injury Risk: Low: Low risk from testing/treatment Moderate: Drug management Medical Decision Making Level: 3 - Low documented in this encounter [facility] 04-21-2025 Telephone encounter Note Patient calling with concern for red raised rash to neck area and trunk area that began about 4-5 days ago. Patient states she had shoulder surgery recently and wears a shoulder sling. States she has a rash where her sling rests on her neck and on her stomach. Mild itching. No open areas. States her physical therapist advised she see her PCP for evaluation. No fever. No N/V/D or wheezing/breathing difficulties. Appt made with available Family Medicine provider for today per pt request. Blanca Morgan RN [facility] 04-21-2025 Miscellaneous Notes Patient calling with concern for red raised rash to neck area and trunk area that began about 4-5 days ago. Patient states she had shoulder surgery recently and wears a shoulder sling. States she has a rash where her sling rests on her neck and on her stomach. Mild itching. No open areas. States her physical therapist advised she see her PCP for evaluation. No fever. No N/V/D or wheezing/breathing difficulties. Appt made with available Family Medicine provider for today per pt request. Blanca Morgan RN documented in this encounter [facility] 04-20-2025 Note HNO ID: [id number] Author: JOLLY MONROY PTA Service: ? Author Type: Corrugator Operator Type: Progress Notes Filed: 04/20/2025 16:40 Note Text: Episode Visit Count: 2 Therapist That Will Accept/Oversee The Plan Of Care: Luis Enrique Sears PT, DPT Start of Care Date: 04/06/25 Onset Date: 12/20/23 Plan of Care Certification Date: 11/27/24 Next Certification Due Date: 11/27/24 Patient Identified by Name and Date of : Yes REHABILITATION AND SPORTS THERAPY PHYSICAL THERAPY TREATMENT NOTE ASSESSMENT: Maricruz Tejada tolerated the session with no issues. She demonstrated improvements in pain levels overall. Stiffness noted at around neutral of passive elbow ER. Introduced L side strengthening for cross over training. The patient will continue to benefit from ongoing skilled physical therapy to progress toward set goals. PLAN FOR NEXT VISIT: progress per protocol SUBJECTIVE: Patient reports pain levels are gradually improving. Patient reports the exercises are going okay, not causing pain. Sleeping is disrupted due to the sling. Stitches removes Sunday, pt okay'd to sit without brace on. Sleeping with sling on until 05/19/25 Pain: Pain Pain Level: 2 Pain Location: Shoulder - Right Description: Aching Frequency: Continuous OBJECTIVE MEASURES WITH LEVEL OF FUNCTION: Rash developing to the L neck, R forearm, stomach, back becoming itchy - recommended following up with PCP UE PROM R Shoulder Flex: 90 Degrees R Shoulder External Rotation: 0 Degrees (stiffness) TREATMENT: Therapeutic Exercise: 1: codmans pendulums x20 cw/ccw 2: AAROM elbow flexion/extnion x20 3: scapular squeezes x20 4: self PROM shoulder flexion to 90 x20 5: self PROM shoulder ER to neutral x20 6: submax isometric deltoid press 1x5 5 hold 7: L ONLY cable rows 15# 2x10 8: L ONLY banded ER/IR L3 2x10 9: L ONLY shoulder flexion/scaption/abduction 4# 1x10ea. Skilled Intervention: Patient was educated in proper exercise technique and purpose for exercises. Reviewed and educated patient on additions/changes for home exercise program as above (*). Skilled judgment was used in selection of appropriate interventions. Billing Therapeutic Exercise Treatment Minutes: 23 Skilled Treatment Time Minutes (timed and untimed codes): 23 Total Session Time (minutes): 23 Session Start Time : 1408 Session Stop Time : 1431 Jolly Monroy PTA [facility] 04-20-2025 History of Presen t illness Narrative Episode Visit Count: 2 Therapist That Will Accept/Oversee The Plan Of Care: Luis Enrique Sears PT, DPT Start of Care Date: 04/06/25 Onset Date: 12/20/23 Plan of Care Certification Date: 11/27/24 Next Certification Due Date: 11/27/24 Patient Identified by Name and Date of : Yes REHABILITATION AND SPORTS THERAPY PHYSICAL THERAPY TREATMENT NOTE ASSESSMENT: Maricruz Tejada tolerated the session with no issues. She demonstrated improvements in pain levels overall. Stiffness noted at around neutral of passive elbow ER. Introduced L side strengthening for cross over training. The patient will continue to benefit from ongoing skilled physical therapy to progress toward set goals. PLAN FOR NEXT VISIT: progress per protocol SUBJECTIVE: Patient reports pain levels are gradually improving. Patient reports the exercises are going okay, not causing pain. Sleeping is disrupted due to the sling. Stitches removes Sunday, pt okay'd to sit without brace on. Sleeping with sling on until 05/19/25 Pain: Pain Pain Level: 2 Pain Location: Shoulder - Right Description: Aching Frequency: Continuous OBJECTIVE MEASURES WITH LEVEL OF FUNCTION: Rash developing to the L neck, R forearm, stomach, back becoming itchy - recommended following up with PCP UE PROM R Shoulder Flex: 90 Degrees R Shoulder External Rotation: 0 Degrees (stiffness) TREATMENT: Therapeutic Exercise: 1: codmans pendulums x20 cw/ccw 2: AAROM elbow flexion/extnion x20 3: scapular squeezes x20 4: self PROM shoulder flexion to 90 x20 5: self PROM shoulder ER to neutral x20 6: submax isometric deltoid press 1x5 5 hold 7: L ONLY cable rows 15# 2x10 8: L ONLY banded ER/IR L3 2x10 9: L ONLY shoulder flexion/scaption/abduction 4# 1x10ea. Skilled Intervention: Patient was educated in proper exercise technique and purpose for exercises. Reviewed and educated patient on additions/changes for home exercise program as above (*). Skilled judgment was used in selection of appropriate interventions. Billing Therapeutic Exercise Treatment Minutes: 23 Skilled Treatment Time Minutes (timed and untimed codes): 23 Total Session Time (minutes): 23 Session Start Time : 1408 Session Stop Time : 1431 Jolly Monroy PTA documented in this encounter [facility] 04-16-2025 History of Presen t illness Narrative Chief Complaint Patient presents with: Follow Up: Discuss decreasing medication HPI Maricruz Tejada is a 19 year old female who presents here today for Above Complaints.. Pt here for medication dose change. Taking Cymbalta 60mg once daily. Patient states she feels she has no emotion. When she forgets to take the medication she feels better- improved mood and more motivated. When she is off the medication for too long then she starts to have mood swings. Is taking Paxil 10mg daily- states she is benefiting from this, notices improvement with over all mood with this. Past medical history, appointments, medications, allergies reviewed. Previous Medical History PAST MEDICAL HISTORY Diagnosis Date Calculus of kidney Essential hypertension Migraine headache with aura PMDD (premenstrual dysphoric disorder) 2019 POTS (postural orthostatic tachycardia syndrome) borderline Rotator cuff dysfunction, right partial tear Syncope and collapse Tachycardia Previous Surgical History PAST SURGICAL HISTORY Procedure Laterality Date INSERTION OF IUD 10/24/2021 removed 09/14/2023 PAST SURGICAL HISTORY OF removal of renal calculi via lithotrypsy PAST SURGICAL HISTORY OF 06/24/2014 PCP of right thumb PAST SURGICAL HISTORY OF Right 04/03/2025 Shoulder arthroscopy with repair slap lesion UNLISTED PROCEDURE LACRIMAL SYSTEM 02/18/2004 DR WHEELER Family History FAMILY HISTORY Problem Relation Age of Onset Hypertension Mother Started in mid-30's Hypertension Father No Known Problems Sister No Known Problems Brother Hypertension Maternal Grandmother Hypertension Maternal Grandfather Lipids Maternal Grandfather other (FIBROMYALGIA) Paternal Grandmother Patient Allergies ALLERGIES Allergen Reactions Codeine Tramadol Itching, Other: See Comments Dizziness Current Medications Current Outpatient Medications on File Prior to Visit Medication Sig ondansetron (ZOFRAN) 4 mg tablet Take 1 tablet by mouth every 8 hours as needed. metoprolol succinate ER (TOPROL XL) 100 mg Take 1.5 tablets by mouth once daily. triamterene-hydroCHLOROthiazide (MAXZIDE) 75-50 mg per tablet Take 1 tablet by mouth once daily. levonorgestrel (MIRENA) 21 mcg/24hr (up to 8 yrs) 52 mg IUD 1 Each by INTRAUTERINE route as directed. lisinopril (ZESTRIL) 20 mg tablet Take 1 tablet by mouth once daily. tretinoin (RETIN-A) 0.025 % topical cream Mix 50/50 with moisturizer and apply to the affected areas of the face every night. Azelaic Acid 15 % gel Apply a thin layer to the full face once daily in the morning PARoxetine (PAXIL) 10 mg tablet Take 1 tablet by mouth once daily. ubrogepant (UBRELVY) 100 mg tablet Take 1 tab at migraine onset. May repeat once in 2 hours as needed. DULoxetine (CYMBALTA) 60 mg capsule Take 1 capsule by mouth once daily. Cholecalciferol, Vitamin D3, 50 mcg (2,000 unit) cap Take 1 capsule by mouth once daily. [DISCONTINUED] Norethindrone Acet-Ethinyl Est (12/08, ,) 1-20 mg-mcg per tablet Take 1 tablet by mouth once daily. No current facility-administered medications on file prior to visit. Social History Social History Tobacco Use Smoking status: Never Smokeless tobacco: Never Vaping Use Vaping status: Never Used Substance Use Topics Alcohol use: No Drug use: No Review of Symptoms REVIEW OF SYSTEMS See Hpi, otherwise negative EXAM: BP 118/82 (BP Site: Left Arm, BP Position: Sitting, BP Cuff Size: Regular Adult) Pulse 84 Resp 16 Wt 69.9 kg (154 lb 3.2 oz) LMP 02/24/2025 (Exact Date) BMI 28.20 kg/m General Appearance: Well appearing, alert, in no acute distress, well-hydrated, well nourished.. Lungs: Lungs clear to auscultation. No wheezing, rhonchi, rales.. Heart: RRR without murmur, gallop, or rubs. No ectopy. Health Maintenance List Asthma Action Plan Never done Asthma Control Test Never done Meningococcal B Vaccine(1 of 2 - Standard) Never done Depression Screening Never done Anxiety Screening Never done Hepatitis C Screening Never done HIV Screening Never done BP Controlled (<130/80) Never done Covid-19 Vaccine() Never done DTaP,Tdap,Td Vaccine(7 - Td or Tdap) due on 09/22/2025 GC (Gonorrhea) Screening (18-24) due on 01/05/2026 Chlamydia Screening (18-24) due on 01/05/2026 Cervical Cancer Screening due on 03/03/2026 Annual PCP Team Chronic Disease Visit due on 04/01/2026 Hepatitis B Vaccine Completed HPV Vaccine Completed Influenza Vaccine Completed ASSESSMENT/PLAN: 1. Brain fog - ICD9: 799.59, ICD10: R41.89 (primary diagnosis) Decrease Cymbalta regimen to 30 mg daily. Continue paxil as prescribed. Reach out in 4-6 weeks if wanting to decrease Cymbalta more. Pt aware of needing gradual taper if wanting to decrease more. Discussed importance of taking routinely. - DULOXETINE 30 MG CAPSULE,DELAYED RELEASE 2. Depression, unspecified depression type - ICD9: 311, ICD10: F32.A See above. - DULOXETINE 30 MG CAPSULE,DELAYED RELEASE Attending Note I have personally performed a face to face assessment of the patient and have reviewed the ELISEO note. My fisher findings agree with above documentation. Other additions or changes: As edited Signature: Little Cheng Date: 04/16/2025 Time: 3:33 PM documented in this encounter [facility] 04-16-2025 Note HNO ID: [id number] Author: LITTLE CHENG APRN.SENIOR ACCOUNT CLERK Service: ? Author Type: Nurse Practitioner Type: Progress Notes Filed: 04/16/2025 15:34 Note Text: Chief Complaint Patient presents with: Follow Up: Discuss decreasing medication HPI Maricruz Tejada is a 19 year old female who presents here today for Above Complaints.. Pt here for medication dose change. Taking Cymbalta 60mg once daily. Patient states she feels she has no emotion. When she forgets to take the medication she feels better- improved mood and more motivated. When she is off the medication for too long then she starts to have mood swings. Is taking Paxil 10mg daily- states she is benefiting from this, notices improvement with over all mood with this. Past medical history, appointments, medications, allergies reviewed. Previous Medical History PAST MEDICAL HISTORY Diagnosis Date Calculus of kidney Essential hypertension Migraine headache with aura PMDD (premenstrual dysphoric disorder) 2019 POTS (postural orthostatic tachycardia syndrome) borderline Rotator cuff dysfunction, right partial tear Syncope and collapse Tachycardia Previous Surgical History PAST SURGICAL HISTORY Procedure Laterality Date INSERTION OF IUD 10/24/2021 removed 09/14/2023 PAST SURGICAL HISTORY OF removal of renal calculi via lithotrypsy PAST SURGICAL HISTORY OF 06/24/2014 PCP of right thumb PAST SURGICAL HISTORY OF Right 04/03/2025 Shoulder arthroscopy with repair slap lesion UNLISTED PROCEDURE LACRIMAL SYSTEM 02/18/2004 DR WHEELER Family History FAMILY HISTORY Problem Relation Age of Onset Hypertension Mother Started in mid-30's Hypertension Father No Known Problems Sister No Known Problems Brother Hypertension Maternal Grandmother Hypertension Maternal Grandfather Lipids Maternal Grandfather other (FIBROMYALGIA) Paternal Grandmother Patient Allergies ALLERGIES Allergen Reactions Codeine Tramadol Itching, Other: See Comments Dizziness Current Medications Current Outpatient Medications on File Prior to Visit Medication Sig ondansetron (ZOFRAN) 4 mg tablet Take 1 tablet by mouth every 8 hours as needed. metoprolol succinate ER (TOPROL XL) 100 mg Take 1.5 tablets by mouth once daily. triamterene-hydroCHLOROthiazide (MAXZIDE) 75-50 mg per tablet Take 1 tablet by mouth once daily. levonorgestrel (MIRENA) 21 mcg/24hr (up to 8 yrs) 52 mg IUD 1 Each by INTRAUTERINE route as directed. lisinopril (ZESTRIL) 20 mg tablet Take 1 tablet by mouth once daily. tretinoin (RETIN-A) 0.025 % topical cream Mix 50/50 with moisturizer and apply to the affected areas of the face every night. Azelaic Acid 15 % gel Apply a thin layer to the full face once daily in the morning PARoxetine (PAXIL) 10 mg tablet Take 1 tablet by mouth once daily. ubrogepant (UBRELVY) 100 mg tablet Take 1 tab at migraine onset. May repeat once in 2 hours as needed. DULoxetine (CYMBALTA) 60 mg capsule Take 1 capsule by mouth once daily. Cholecalciferol, Vitamin D3, 50 mcg (2,000 unit) cap Take 1 capsule by mouth once daily. [DISCONTINUED] Norethindrone Acet-Ethinyl Est (,) 1-20 mg-mcg per tablet Take 1 tablet by mouth once daily. No current facility-administered medications on file prior to visit. Social History Social History Tobacco Use Smoking status: Never Smokeless tobacco: Never Vaping Use Vaping status: Never Used Substance Use Topics Alcohol use: No Drug use: No Review of Symptoms REVIEW OF SYSTEMS See Hpi, otherwise negative EXAM: BP 118/82 (BP Site: Left Arm, BP Position: Sitting, BP Cuff Size: Regular Adult) Pulse 84 Resp 16 Wt 69.9 kg (154 lb 3.2 oz) LMP 02/24/2025 (Exact Date) BMI 28.20 kg/m? General Appearance: Well appearing, alert, in no acute distress, well-hydrated, well nourished.. Lungs: Lungs clear to auscultation. No wheezing, rhonchi, rales.. Heart: RRR without murmur, gallop, or rubs. No ectopy. Health Maintenance List Asthma Action Plan Never done Asthma Control Test Never done Meningococcal B Vaccine(1 of 2 - Standard) Never done Depression Screening Never done Anxiety Screening Never done Hepatitis C Screening Never done HIV Screening Never done BP Controlled (<130/80) Never done Covid-19 Vaccine(2023- season) Never done DTaP,Tdap,Td Vaccine(7 - Td or Tdap) due on 09/22/2025 GC (Gonorrhea) Screening (18-24) due on 01/05/2026 Chlamydia Screening (18-24) due on 01/05/2026 Cervical Cancer Screening due on 03/03/2026 Annual PCP Team Chronic Disease Visit due on 04/01/2026 Hepatitis B Vaccine Completed HPV Vaccine Completed Influenza Vaccine Completed ASSESSMENT/PLAN: 1. Brain fog - ICD9: 799.59, ICD10: R41.89 (primary diagnosis) Decrease Cymbalta regimen to 30 mg daily. Continue paxil as prescribed. Reach out in 4-6 weeks if wanting to decrease Cymbalta more. Pt aware of needing gradual taper if wanting to (more content not included)... [facility] 04-14-2025 Note HNO ID: [id number] Author: NETO MCARTHUR MD Service: ? Author Type: Physician Type: Progress Notes Filed: 04/14/2025 13:52 Note Text: History: Maricruz Tejada is approximately 10 days s/p labral repair. They are doing well. She quantitates the pain as 1/10. She denies chest pain, SOB, fever, chills, or drainage. No calf pain reported. She is taking Advil and Tylenol for pain management purposes. Physical Examination: She is alert and oriented and in no acute distress. The portals are clean, dry, and intact. No erythema or drainage noted. Passive supine FE is 90 degrees and passive ER is 40 degrees. Negative Peter?s. Good Rom of elbow and wrist noted. Assessment: Status post labral repair of shoulder (primary encounter diagnosis) Plan: She will continue their formal Phase I physical therapy program. Ice as instructed. She is taking Advil and Tylenol for pain management purposes if necessary. They understand the risks and benefits of these medications and would like to proceed. She was instructed on appropriate sling usage. Sutures from the portals were removed without difficulty. Return for follow-up in one month. Neto Mcarthur MD [facility] 04-14-2025 History of Presen t illness Narrative History: Maricruz Tejada is approximately 10 days s/p labral repair. They are doing well. She quantitates the pain as 1/10. She denies chest pain, SOB, fever, chills, or drainage. No calf pain reported. She is taking Advil and Tylenol for pain management purposes. Physical Examination: She is alert and oriented and in no acute distress. The portals are clean, dry, and intact. No erythema or drainage noted. Passive supine FE is 90 degrees and passive ER is 40 degrees. Negative Peter s. Good Rom of elbow and wrist noted. Assessment: Status post labral repair of shoulder (primary encounter diagnosis) Plan: She will continue their formal Phase I physical therapy program. Ice as instructed. She is taking Advil and Tylenol for pain management purposes if necessary. They understand the risks and benefits of these medications and would like to proceed. She was instructed on appropriate sling usage. Sutures from the portals were removed without difficulty. Return for follow-up in one month. Neto Mcarthur MD documented in this encounter [facility] 04-06-2025 History of Presen t illness Narrative Program_ID:[id number] Access Code: [email or web address] URL: [email or web address] Date: 04-06-2025 Prepared By: Luis Enrique Sears Program Notes Exercises - Supine Shoulder Flexion PROM - 2-3 x daily - 7 x weekly - 2 sets - 10 reps - cc Shoulder ER PROM Hand Assisted - 2-3 x daily - 7 x weekly - 2 sets - 10 reps - Circular Shoulder Pendulum with Table Support - 2-3 x daily - 7 x weekly - 2 sets - 10 reps - Seated Elbow Flexion and Extension AROM - 2-3 x daily - 7 x weekly - 2 sets - 10 reps Images from the original note were not included. Episode Visit Count: 1 Therapist That Will Accept/Oversee The Plan Of Care: Luis Enrique Sears PT, DPT Start of Care Date: 04/06/25 Onset Date: 12/20/23 Plan of Care Certification Date: 11/27/24 Next Certification Due Date: 11/27/24 Patient Identified by Name and Date of : Yes REHABILITATION AND SPORTS THERAPY PHYSICAL THERAPY EVALUATION PLAN OF CARE: Assessment: Maricruz Tejada presents with chief complaint of post-operative right shoulder pain that interferes with dressing, grooming, cooking, cleaning, driving, use hand with arm at shoulder level, reaching overhead, reaching behind back, working . The patient presents with impairments in posture, range of motion, strength, and symptom management. PROMIS (Patient-Reported Outcomes Measurement Information System) scores were reviewed and identified as a rehabilitation concern. Prognosis for therapy is Good due to: current objective clinical presentation, good overall health status, good support system/ coping skills . The patient will benefit from skilled therapy services to meet the goals established for this plan of care as noted below. Surgeon's office contacted regarding concerns over shoulder presentation. Patient and caregiver educated on contacting surgeons office if presentation changes over the next 24 hours. PT had a second therapist to assess patient's shoulder (with their permission) and provide input. It was deemed that no immediate referral was necessary. Goals for Episode of Care: established 04/06/25 Spencer in home exercise program. Patient will decrease pain rating by 2 points to meet minimal clinical important difference for numeric pain rating scale. Patient will increase active ROM of right shoulder flexion to 160 degrees, internal rotation to T9, and external rotation to 60 degrees to allow pt to to improve performance of ADLs. Patient will demonstrate increase in right shoulder strength to 4/5 during manual muscle testing in order to improve function for home management tasks and work tasks. Improve postural awareness. Patient Goals: to get out of the sling, be able to have full rnage of motion of the shoulder Time Frame for Goals and Treatment : 07/27/25 Planned Interventions, Frequency, and Duration: Current Frequency: 2x/week Duration: 16 weeks Total Number of Visits Planned: 20 Planned Treatment Interventions: Therapeutic exercise (99674), Neuromuscular re-education (61265), Manual therapy (85952), Therapeutic activities (58728), Self-nursing home management (64372), Patient/Family/Caregiver Education, E-Stim Attended/TENS (61123) PLAN FOR NEXT VISIT: progress per protocol Patient demonstrates good understanding of plan of care and treatment. The above goals and plan of care were discussed and agreed upon by patient/family. SUBJECTIVE: Patient presents s/p R SLAP repair on 04/03. She had two incidients leading up to the repair. One was a basketball injury and the second was being dragged by a horse. Patient reports she feels ok just sitting but notes pain with movement. She has been able to sleep in bed ok as long as she takes her pain meds. She was having some muscle spasms yesterday. 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 such as prolonged standing. - Discussed the importance of safety measures, including avoiding driving when not feeling well, pulling over if any symptom begins, fall risks, being careful and around others post-surgery sunday - Provided educational material from the [facility] on POTS management and treatment. 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 - encouraged a log of symptoms and activities surrounding them 2. HTN- well managed, continue lisinopril, metoprolol and maxzide as ordered unle (more content not included)... [facility] 04-01-2025 History of Presen t illness Narrative Images from the original note were not included. [facility] SECTION OF REGIONAL CARDIOLOGY OUTPATIENT VISIT DATE 04/01/2025 OUTPATIENT VISIT TYPE ESTABLISHED PRIMARY CARE PHYSICIAN: Celso Freire [address] [phone] Patient is being seen at the request of self for follow up HISTORY OF PRESENT ILLNESS: Ms. Tejada is a 19 year old female, history of migraine, hypertension diagnosed in 2022, syncope 2022, dysautonomia, syncope, presents for follow-up visit. Previously seen by Dr. Tovar 02/21/2024. She denies angina, SOB, orthopnea, PND, leg swelling. She reports orthostatic lightheadedness as well as palpitations particularly when running on the treadmill or with any level of physical exertion. Resolves with rest. She experienced a recent episode of syncope approximately 2 weeks ago. She had been running on the treadmill at home and started to feel foggy. He stopped running and experienced lightheadedness as well as blurred vision. She then recalls finding herself on the ground. She felt headache when she regained consciousness. She did not seek medical care at that time. She states that her blood pressures are predominantly in the 120s over 80s when she checks it at home She drinks 120 fl oz per water daily. She wears compression stockings while at work. Tilt table 03/12/25: Postural increase in heart rate was seen that was borderline for accentuated postural tachycardia. Heart rate increased from 81 bpm to 110 bpm in end of tilt. She played basketball and soccer competitively in High School. PAST MEDICAL HISTORY Diagnosis Date Calculus of kidney Essential hypertension Migraine headache with aura PMDD (premenstrual dysphoric disorder) 2019 POTS (postural orthostatic tachycardia syndrome) borderline Rotator cuff dysfunction, right partial tear Syncope and collapse Tachycardia PAST SURGICAL HISTORY Procedure Laterality Date INSERTION OF IUD 10/24/2021 removed 09/14/2023 PAST SURGICAL HISTORY OF removal of renal calculi via lithotrypsy PAST SURGICAL HISTORY OF 06/24/2014 PCP of right thumb UNLISTED PROCEDURE LACRIMAL SYSTEM 02/18/2004 DR WHEELER Social History Tobacco Use Smoking status: Never Smokeless tobacco: Never Vaping Use Vaping status: Never Used Substance Use Topics Alcohol use: No Drug use: No FAMILY HISTORY Problem Relation Age of Onset Hypertension Mother Started in mid-30's Hypertension Father No Known Problems Sister No Known Problems Brother Hypertension Maternal Grandmother Hypertension Maternal Grandfather Lipids Maternal Grandfather other (FIBROMYALGIA) Paternal Grandmother ALLERGIES Allergen Reactions Codeine Tramadol Itching, Other: See Comments Dizziness CURRENT MEDICATIONS: metoprolol succinate ER (TOPROL XL) 100 mg Take 1.5 tablets by mouth once daily. triamterene-hydroCHLOROthiazide (MAXZIDE) 75-50 mg per tablet Take 1 tablet by mouth once daily. levonorgestrel (MIRENA) 21 mcg/24hr (up to 8 yrs) 52 mg IUD 1 Each by INTRAUTERINE route as directed. tretinoin (RETIN-A) 0.025 % topical cream Mix 50/50 with moisturizer and apply to the affected areas of the face every night. Azelaic Acid 15 % gel Apply a thin layer to the full face once daily in the morning PARoxetine (PAXIL) 10 mg tablet Take 1 tablet by mouth once daily. ubrogepant (UBRELVY) 100 mg tablet Take 1 tab at migraine onset. May repeat once in 2 hours as needed. DULoxetine (CYMBALTA) 60 mg capsule Take 1 capsule by mouth once daily. Cholecalciferol, Vitamin D3, 50 mcg (2,000 unit) cap Take 1 capsule by mouth once daily. lisinopril (ZESTRIL) 20 mg tablet Take 1 tablet by mouth once daily. [DISCONTINUED] Norethindrone Acet-Ethinyl Est (JUNE12/08, ,) 1-20 mg-mcg per tablet Take 1 tablet by mouth once daily. PHYSICAL EXAMINATION: BP 124/88 Pulse 82 Ht 157.5 cm (5' 2) Wt 71 kg (156 lb 8.4 oz) LMP 02/24/2025 (Exact Date) SpO2 98% BMI 28.63 kg/m General: Appears comfortable in no apparent cardiopulmonary distress Neck: No JVD, no bruits CVS: S1, S2, No m/r/g Chest: CTAB Abd: Soft, nontender, no masses, BS present Ext: No pedal edema, pedal pulses 2+ bilaterally Neuro: No focal neurological deficits CARDIOVASCULAR MEDICINE TESTING: Last ECHO Result Conclusion ECHO Collected: 01/29/2025 1:03 PM (Final result) Impression: CONCLUSIONS: - Exam indication: Hypertension - The left ventricle is normal in size. Left ventricular systolic function is normal. EF = 60 5% (2D biplane) Normal left ventricular diastolic function. - The right ventricle is normal in size. Right ventricular systolic function is normal. - There are no significant valvular abnormalities. - Exam was compared with the prior echocardiographic exam performed on 04/10/2023, no significant change. * * * Final * * * Last EKG Result Conclusion ECG COMPLETE Collected: 09/20/2023 9:52 AM (Preliminary result) Impression: NORMAL SINUS RHYTHM NORMAL ECG ASSESSMENT/PLAN: 1. Syncope Likely neurocardiogenic in etiology. TTT showed POTS. - We discussed repeating Ziopatch. She will keep us informed if she would like to pursue this. - Continue proper hydration with water. - Consider at least knee-high graded compression stockings starting at 20 to 30 mmHg, increasing to 30 to 40 mmHg if necessary, to be worn during the daytime and removal at bedtime. - Counseled on avoiding exercises where she is in a purely upright position, focusing more on exercises such as stationary biking/ recumbent biking, rowing. Advised on resistance training exercises targeting her lower extremities. - Advised to avoid driving given recent syncopal episode. - She was counseled on techniques to mitigate lightheadedness such as getting close to the ground, elevating her lower extremities above the level of the head/heart, etc. - Advised to keep us updated if she experiences any further syncopal episodes. Hilario Killian MD, [facility] documented in this encounter [facility] 04-01-2025 Note HNO ID: [id number] Author: HILARIO KILLIAN MD Service: ? Author Type: Physician Type: Progress Notes Filed: 04/01/2025 10:19 Note Text: [facility] [place] SECTION OF REGIONAL CARDIOLOGY OUTPATIENT VISIT DATE 04/01/2025 OUTPATIENT VISIT TYPE ESTABLISHED PRIMARY CARE PHYSICIAN: Celso Freire [address] [place] [address] Patient is being seen at the request of self for follow up HISTORY OF PRESENT ILLNESS: Ms. Tejada is a 19 year old female, history of migraine, hypertension diagnosed in 2022, syncope 2022, dysautonomia, syncope, presents for follow-up visit. Previously seen by Dr. Tovar 02/21/2024. She denies angina, SOB, orthopnea, PND, leg swelling. She reports orthostatic lightheadedness as well as palpitations particularly when running on the treadmill or with any level of physical exertion. Resolves with rest. She experienced a recent episode of syncope approximately 2 weeks ago. She had been running on the treadmill at home and started to feel foggy. He stopped running and experienced lightheadedness as well as blurred vision. She then recalls finding herself on the ground. She felt headache when she regained consciousness. She did not seek medical care at that time. She states that her blood pressures are predominantly in the 120s over 80s when she checks it at home She drinks 120 fl oz per water daily. She wears compression stockings while at work. Tilt table 03/12/25: Postural increase in heart rate was seen that was borderline for accentuated postural tachycardia. Heart rate increased from 81 bpm to 110 bpm in end of tilt. She played basketball and soccer competitively in High School. PAST MEDICAL HISTORY Diagnosis Date Calculus of kidney Essential hypertension Migraine headache with aura PMDD (premenstrual dysphoric disorder) 2019 POTS (postural orthostatic tachycardia syndrome) borderline Rotator cuff dysfunction, right partial tear Syncope and collapse Tachycardia PAST SURGICAL HISTORY Procedure Laterality Date INSERTION OF IUD 10/24/2021 removed 09/14/2023 PAST SURGICAL HISTORY OF removal of renal calculi via lithotrypsy PAST SURGICAL HISTORY OF 06/24/2014 PCP of right thumb UNLISTED PROCEDURE LACRIMAL SYSTEM 02/18/2004 DR WHEELER Social History Tobacco Use Smoking status: Never Smokeless tobacco: Never Vaping Use Vaping status: Never Used Substance Use Topics Alcohol use: No Drug use: No FAMILY HISTORY Problem Relation Age of Onset Hypertension Mother Started in mid-30's Hypertension Father No Known Problems Sister No Known Problems Brother Hypertension Maternal Grandmother Hypertension Maternal Grandfather Lipids Maternal Grandfather other (FIBROMYALGIA) Paternal Grandmother ALLERGIES Allergen Reactions Codeine Tramadol Itching, Other: See Comments Dizziness CURRENT MEDICATIONS: metoprolol succinate ER (TOPROL XL) 100 mg Take 1.5 tablets by mouth once daily. triamterene-hydroCHLOROthiazide (MAXZIDE) 75-50 mg per tablet Take 1 tablet by mouth once daily. levonorgestrel (MIRENA) 21 mcg/24hr (up to 8 yrs) 52 mg IUD 1 Each by INTRAUTERINE route as directed. tretinoin (RETIN-A) 0.025 % topical cream Mix 50/50 with moisturizer and apply to the affected areas of the face every night. Azelaic Acid 15 % gel Apply a thin layer to the full face once daily in the morning PARoxetine (PAXIL) 10 mg tablet Take 1 tablet by mouth once daily. ubrogepant (UBRELVY) 100 mg tablet Take 1 tab at migraine onset. May repeat once in 2 hours as needed. DULoxetine (CYMBALTA) 60 mg capsule Take 1 capsule by mouth once daily. Cholecalciferol, Vitamin D3, 50 mcg (2,000 unit) cap Take 1 capsule by mouth once daily. lisinopril (ZESTRIL) 20 mg tablet Take 1 tablet by mouth once daily. [DISCONTINUED] Norethindrone Acet-Ethinyl Est (JUNE,) 1-20 mg-mcg per tablet Take 1 tablet by mouth once daily. PHYSICAL EXAMINATION: BP 124/88 Pulse 82 Ht 157.5 cm (5' 2) Wt 71 kg (156 lb 8.4 oz) LMP 02/24/2025 (Exact Date) SpO2 98% BMI 28.63 kg/m? General: Appears comfortable in no apparent cardiopulmonary distress Neck: No JVD, no bruits CVS: S1, S2, No m/r/g Chest: CTAB Abd: Soft, nontender, no masses, BS present Ext: No pedal edema, pedal pulses 2+ bilaterally Neuro: No focal neurological deficits CARDIOVASCULAR MEDICINE TESTING: Last ECHO Result Conclusion ECHO Collected: 01/29/2025 1:03 PM (Final result) Impression: CONCLUSIONS: - Exam indication: Hypertension - The left ventricle is normal in size. Left ventricular systolic function is normal. EF = 60 ? 5% (2D biplane) Normal left ventricular diastolic function. - The right ventricle is normal in size. Right ventricular systolic function is normal. - There are no significant valvular abnormalities. - Exam was compared with the prior echocardiographic ex (more content not included)... [facility] 03-30-2025 Note HNO ID: [id number] Author: NICOLE PIERRE APRN.CNP Service: Anesthesiology Author Type: Nurse Practitioner Type: Progress Notes Filed: 03/30/2025 14:57 Note Text: ELISEO PAT noted reviewed. No anesthesia or pre-operative concerns noted. No optimizaitons pending. Ready for surgery. [facility] 03-30-2025 History and physical note Images from the original note were not included. [facility] HISTORY AND PHYSICAL EXAMINATION SERVICE DATE: 03/30/2025 SERVICE TIME: 2:15 PM PRIMARY CARE PHYSICIAN: Celso Freire DO Assessment Patient has the following medical conditions which may affect savana-operative course: Preop examination Patient has the following medical conditions which may affect savana-operative course addressed in assessment and plan today. Superior glenoid labrum lesion of right shoulder Surgery scheduled for April 03, 2025 Hypertension, essential Controlled with metoprolol take day of surgery Lisinopril hold morning of surgery POTS (postural orthostatic tachycardia syndrome) Appt. With cardiology 04/01/25 Mraia D for followup. Tilt Test Results 03/12/25 * FINAL IMPRESSIONS * - The test was stopped early at 30 out of 45 minutes of 70 degree tilt. - Systolic blood pressures remained stable from 129 mmHg at start to 130 mmHg at end of tilt. - Diastolic blood pressures remained stable from 78 mmHg at start to 85 mmHg at end of tilt. - Blood pressure upon return to supine position was 129/78 mmHg. - Heart rates increased from 81 bpm at start to 110 bpm at end of tilt. - Heart rate upon return to supine position was 77 bpm. - ECGs showed: NO asystole was seen. - Patient signs/symptoms included: HOT, LIGHTHEADEDNESS, SEE NOTE. - Overall: A postural increase in heart rate was seen that was borderline for accentuated postural tachycardia. Exercise-induced asthma Sports induced no longer playing sports. No Inhalers ANESTHESIA FINDINGS: Intubation History: No history of difficult intubation Significant Anesthesia Considerations: none Airway History: No history of difficult airway Howard Activity Status Index: METS: Run a short distance (8.00 METs) DASI Score: 8 Patient denies any chest pain or undue shortness of breath with the above physical activity. STOP-Bang Score: STOP-Bang Score: 0 ARISCAT Score: Age: <=50 Preoperative SpO2: >=96% Respiratory infection in the last month: No Preoperative anemia: No Surgical incision: peripheral Duration of surgery: <2 hrs Emergency procedure: No ARISCAT Score: 0 I - PHYSICAL EVALUATION AIRWAY Patient intubated: No. DENTAL Dental findings: teeth intact. II - ANESTHESIA PLAN Anesthetic Plan: general Beta Gaby Monitoring Plan Post Procedure Analgesic Plan Prepared for Surgery: . Per patient-no optimizations requested by surgeon for plan procedure. CONSULTS: Planned Anesthetic: general The Following Tests/Procedures Have Been Initiated: No orders of the defined types were placed in this encounter. The reason for this visit is to perform a comprehensive review of the patient's past medical history, assess their current health status and obtain any additional testing required based on anesthesia guidelines. We will also identify any potential anesthesia problems or contraindications to the planned procedure. REASON FOR VISIT: Maricruz Tejada is a 19 year old female who is scheduled for Procedure(s): SHOULDER ARTHROSCOPY W/ REPAIR SLAP LESION (slap repair) (Right) at the request of Dr. Neto Mcarthur for routine H&P. My final recommendation will be communicated back to the requesting physician by way of shared medical record or letter. Subjective The patient has the following: COVID-19 Immunization Status Current Care Gaps Covid-19 Vaccine () Never done 04/11/2024 Postponed until 04/11/2025 by Dinorah Diaz LPN (Declined at this time) 08/26/2021 Postponed until 08/26/2022 by Kelsi Bermudez APRN.MAYA (Declined at this time) CHIEF COMPLAINT: The reason for this visit is to perform a comprehensive review of the patient's past medical history, assess their current health status and obtain any additional testing required based on anesthesia guidelines. We will also identify any potential anesthesia problems or contraindications to the planned procedure. HPI: Patient is a 19 year old female who presents for pre surgical testing. Patient states she has pain in her right upper arm shoulder area for approximately months. she fell off a horse and was pulled on that shoulder. she does not have weakness and she describes her pain dull to sharp 5 out of 10 intermittently. She is status post an MRI. After discussion with the surgeon the patient agrees to surgical intervention. REVIEW OF SYSTEMS: General: Negative for: unintentional weight change, malaise and fever. Neurological: Positive for: headaches. Negative for: seizures and strokes. Respiratory: Positive for: asthma. Negative for: COPD, pneumonia within 6 weeks, URI < 2 weeks and obstructive sleep apnea. Cardiovascular: POTS Positive for: hypertension Negative for: atrial fibrillation, CAD, chest pain, CHF, DVT/PE and hyperlipidemia. GI: Negative for: abdominal pain, GERD, nausea and vomiting. : Negative for: dysuria, hematuria and renal failure. Endocrine: Negative for: diabetes mellitus, hyperthyroidism and hypothyroidism. Hematology: Negative for: anemia, factor V Leiden and von Willebrand disease. Oncology: No history of CA metastasis, chemo within 30 days, or radiotherapy within 90 days. No history of oncological symptoms or problems. Psych: Positive for: anxiety. Negative for: depression. Musculoskeletal: See HPI. Positive for: joint pain. Negative for: back pain. Skin: Negative for lesions, rash and itching. PAST MEDICAL HISTORY Diagnosis Date Calculus of kidney Essential hypertension Migraine headache with aura PMDD (premenstrual dysphoric disorder) 2019 POTS (postural orthostatic tachycardia syndrome) borderline Rotator cuff dysfunction, right partial tear Syncope and collapse Tachycardia PAST SURGICAL HISTORY Procedure Laterality Date INSERTION OF IUD 10/24/2021 removed 09/14/2023 PAST SURGICAL HISTORY OF removal of renal calculi via lithotrypsy PAST SURGICAL HISTORY OF 06/24/2014 PCP of right thumb UNLISTED PROCEDURE LACRIMAL SYSTEM 02/18/2004 DR WHEELER FAMILY HISTORY Problem Relation Age of Onset Hypertension Mother Started in mid-30's Hypertension Father No Known Problems Sister No Known Problems Brother Hypertension Maternal Grandmother Hypertension Maternal Grandfather Lipids Maternal Grandfather other (FIBROMYALGIA) Paternal Grandmother Social History Tobacco Use Smoking status: Never Smokeless tobacco: Never Vaping Use Vaping status: Never Used Substance Use Topics Alcohol use: No Drug use: No Prior to Admission medications as of 03/30/25 1355 Medication Sig Last Dose Taking metoprolol succinate ER (TOPROL XL) 100 mg Take 1.5 tablets by mouth once daily. Yes triamterene-hydroCHLOROthiazide (MAXZIDE) 75-50 mg per tablet Take 1 tablet by mouth once daily. Yes levonorgestrel (MIRENA) 21 mcg/24hr (up to 8 yrs) 52 mg IUD 1 Each by INTRAUTERINE route as directed. Yes lisinopril (ZESTRIL) 20 mg tablet Take 1 tablet by mouth once daily. Yes tretinoin (RETIN-A) 0.025 % topical cream Mix 50/50 with moisturizer and apply to the affected areas of the face every night. Yes PARoxetine (PAXIL) 10 mg tablet Take 1 tablet by mouth once daily. Yes ubrogepant (UBRELVY) 100 mg tablet Take 1 tab at migraine onset. May repeat once in 2 hours as needed. Yes DULoxetine (CYMBALTA) 60 mg capsule Take 1 capsule by mouth once daily. Yes Cholecalciferol, Vitamin D3, 50 mcg (2,000 unit) cap Take 1 capsule by mouth once daily. Yes Azelaic Acid 15 % gel Apply a thin layer to the full face once daily in the morning Norethindrone Acet-Ethinyl Est (12/08, ,) 1-20 mg-mcg per tablet Take 1 tablet by mouth once daily. No medication comments found. ALLERGIES Allergen Reactions Codeine Tramadol Itching, Other: See Comments Dizziness Objective PHYSICAL EXAM: General: alert and oriented and healthy appearance. Pertinent negatives noted - not distressed. Skin: normal color, no rash or lesions. HEENT: pupils equal round. Cardiovascular: regular rate and rhythm, normal S1 and S2, no rub, murmurs, or gallop. Respiratory: normal breath sounds, no wheezes or crackles. No chest wall deformity or tenderness. Abdomen: bowel sounds present. Extremities: no deformity, no edema or tenderness, no joint swelling or clubbing. Neurological: normal cognition and motor skills. Gait normal. No weakness or sensory deficit. PAIN ASSESSMENT: Pain Pain Level: 3 Pain Location: Shoulder-Right VITALS: BP 129/84 Pulse 76 Temp 98.1 Resp 16 Ht 5' 2 (1.58m) Wt 157 lb (71.2kg) SpO2 99% LMP 02/24/2025 BMI 28.71 kg/(m^2). Diagnostic tests reviewed for today's visit: Lab Value Units Date High Low HB 13.5 g/dL 11/25/2024 15.5 11.5 HCT 40.8 % 11/25/2024 46.0 36.0 WBC 5.49 k/uL 11/25/2024 11.00 3.70 PLT 235 k/uL 11/25/2024 400 150 NA 139 mmol/L 11/25/2024 144 136 K 4.0 mmol/L 11/25/2024 5.1 3.7 GLUC 90 mg/dL 11/25/2024 99 74 BUN 15 mg/dL 11/25/2024 21 7 CREAT 0.73 mg/dL 11/25/2024 0.96 0.58 PTSEC No results within date range. INR No results within date range. APTT No results within date range. ALT 20 U/L 11/25/2024 38 7 AST 22 U/L 11/25/2024 35 13 TBILI 0.4 mg/dL 11/25/2024 1.3 0.2 TSH 1.720 mIU/L 11/25/2024 4.200 0.270 Lab Value Units Date High Low HCGQT No results within date range. UHCG No results within date range. HCG, BODY* No results within date range. Lab Value Units Date High Low ABORHD No results within date range. ABSCREEN No results within date range. Hemoglobin A1C (%) Date Value 11/25/2024 4.8 10/18/2023 5.1 No results found for this or any previous visit (from the past 8760 hours). Recent Results (from the past 51842 hours) ECHO Collection Time: 01/29/25 1:03 PM Impression CONCLUSIONS: - Exam indication: Hypertension - The left ventricle is normal in size. Left ventricular systolic function is normal. EF = 60 5% (2D biplane) Normal left ventricular diastolic function. - The right ventricle is normal in size. Right ventricular systolic function is normal. - There are no significant valvular abnormalities. - Exam was compared with the prior echocardiographic exam performed on 04/10/2023, no significant change. * * * Final * * * ARISCAT risk index interpretation 0 to 25 points: Low risk: 1.6% pulmonary complication rate 26 to 44 points: Intermediate risk: 13.3% pulmonary complication rate 45 to 123 points: High risk: 42.1% pulmonary complication rate Implantable Devices: IUD The Following Tests/Procedures Have Been Initiated: No test ordered in [facility] by surgeon Assessment/Plan Diagnosis: Superior glenoid labrum lesion of right shoulder, initial encounter [S43.431A] PLAN Planned Procedure: Procedure(s): SHOULDER ARTHROSCOPY W/ REPAIR SLAP LESION (slap repair) (Right) I spent a total of 40 minutes on the date of the service which included preparing to see the patient, [id number] patient care, completing clinical documentation, obtaining and/or reviewing separately obtained history, performing a medically appropriate examination, and counseling and educating the patient/family/caregiver. Instructions Given to Patient: Instructions located in the after visit summary. Patient given verbal and written preop instructions and voices comprehension and compliance. SIGNATURE: Sarah Garrett APRN.CNP PATIENT NAME: Maricruz Tejada DATE: March 30, 2025 TIME: 6:54 AM PAGER/CONTACT #: [facility] 03-30-2025 History and physical note Images from the original note were not included. [facility] HISTORY AND PHYSICAL EXAMINATION SERVICE DATE: 03/30/2025 SERVICE TIME: 2:15 PM PRIMARY CARE PHYSICIAN: Celso Freire DO Assessment Patient has the following medical conditions which may affect savana-operative course: Preop examination Patient has the following medical conditions which may affect savana-operative course addressed in assessment and plan today. Superior glenoid labrum lesion of right shoulder Surgery scheduled for April 03, 2025 Hypertension, essential Controlled with metoprolol take day of surgery Lisinopril hold morning of surgery POTS (postural orthostatic tachycardia syndrome) Appt. With cardiology 04/01/25 Maria D for followup. Tilt Test Results 03/12/25 * FINAL IMPRESSIONS * - The test was stopped early at 30 out of 45 minutes of 70 degree tilt. - Systolic blood pressures remained stable from 129 mmHg at start to 130 mmHg at end of tilt. - Diastolic blood pressures remained stable from 78 mmHg at start to 85 mmHg at end of tilt. - Blood pressure upon return to supine position was 129/78 mmHg. - Heart rates increased from 81 bpm at start to 110 bpm at end of tilt. - Heart rate upon return to supine position was 77 bpm. - ECGs showed: NO asystole was seen. - Patient signs/symptoms included: HOT, LIGHTHEADEDNESS, SEE NOTE. - Overall: A postural increase in heart rate was seen that was borderline for accentuated postural tachycardia. Exercise-induced asthma Sports induced no longer playing sports. No Inhalers ANESTHESIA FINDINGS: Intubation History: No history of difficult intubation Significant Anesthesia Considerations: none Airway History: No history of difficult airway Howard Activity Status Index: METS: Run a short distance (8.00 METs) DASI Score: 8 Patient denies any chest pain or undue shortness of breath with the above physical activity. STOP-Bang Score: STOP-Bang Score: 0 ARISCAT Score: Age: <=50 Preoperative SpO2: >=96% Respiratory infection in the last month: No Preoperative anemia: No Surgical incision: peripheral Duration of surgery: <2 hrs Emergency procedure: No ARISCAT Score: 0 I - PHYSICAL EVALUATION AIRWAY Patient intubated: No. DENTAL Dental findings: teeth intact. II - ANESTHESIA PLAN Anesthetic Plan: general Beta Gaby Monitoring Plan Post Procedure Analgesic Plan Prepared for Surgery: . Per patient-no optimizations requested by surgeon for plan procedure. CONSULTS: Planned Anesthetic: general The Following Tests/Procedures Have Been Initiated: No orders of the defined types were placed in this encounter. The reason for this visit is to perform a comprehensive review of the patient's past medical history, assess their current health status and obtain any additional testing required based on anesthesia guidelines. We will also identify any potential anesthesia problems or contraindications to the planned procedure. REASON FOR VISIT: Maricruz Tejada is a 19 year old female who is scheduled for Procedure(s): SHOULDER ARTHROSCOPY W/ REPAIR SLAP LESION (slap repair) (Right) at the request of Dr. Neto Mcarthur for routine H&P. My final recommendation will be communicated back to the requesting physician by way of shared medical record or letter. Subjective The patient has the following: COVID-19 Immunization Status Current Care Gaps Covid-19 Vaccine () Never done 04/11/2024 Postponed until 04/11/2025 by Dinorah Diaz LPN (Declined at this time) 08/26/2021 Postponed until 08/26/2022 by Kelsi Bermudez APRN.MAYA (Declined at this time) CHIEF COMPLAINT: The reason for this visit is to perform a comprehensive review of the patient's past medical history, assess their current health status and obtain any additional testing required based on anesthesia guidelines. We will also identify any potential anesthesia problems or contraindications to the planned procedure. HPI: Patient is a 19 year old female who presents for pre surgical testing. Patient states she has pain in her right upper arm shoulder area for approximately months. she fell off a horse and was pulled on that shoulder. she does not have weakness and she describes her pain dull to sharp 5 out of 10 intermittently. She is status post an MRI. After discussion with the surgeon the patient agrees to surgical intervention. REVIEW OF SYSTEMS: General: Negative for: unintentional weight change, malaise and fever. Neurological: Positive for: headaches. Negative for: seizures and strokes. Respiratory: Positive for: asthma. Negative for: COPD, pneumonia within 6 weeks, URI < 2 weeks and obstructive sleep apnea. Cardiovascular: POTS Positive for: hypertension Negative for: atrial fibrillation, CAD, chest pain, CHF, DVT/PE and hyperlipidemia. GI: Negative for: abdominal pain, GERD, nausea and vomiting. : Negative for: dysuria, hematuria and renal failure. Endocrine: Negative for: diabetes mellitus, hyperthyroidism and hypothyroidism. Hematology: Negative for: anemia, factor V Leiden and von Willebrand disease. Oncology: No history of CA metastasis, chemo within 30 days, or radiotherapy within 90 days. No history of oncological symptoms or problems. Psych: Positive for: anxiety. Negative for: depression. Musculoskeletal: See HPI. Positive for: joint pain. Negative for: back pain. Skin: Negative for lesions, rash and itching. PAST MEDICAL HISTORY Diagnosis Date Calculus of kidney Essential hypertension Migraine headache with aura PMDD (premenstrual dysphoric disorder) 2019 POTS (postural orthostatic tachycardia syndrome) borderline Rotator cuff dysfunction, right partial tear Syncope and collapse Tachycardia PAST SURGICAL HISTORY Procedure Laterality Date INSERTION OF IUD 10/24/2021 removed 09/14/2023 PAST SURGICAL HISTORY OF removal of renal calculi via lithotrypsy PAST SURGICAL HISTORY OF 06/24/2014 PCP of right thumb UNLISTED PROCEDURE LACRIMAL SYSTEM 02/18/2004 DR WHEELER FAMILY HISTORY Problem Relation Age of Onset Hypertension Mother Started in mid-30's Hypertension Father No Known Problems Sister No Known Problems Brother Hypertension Maternal Grandmother Hypertension Maternal Grandfather Lipids Maternal Grandfather other (FIBROMYALGIA) Paternal Grandmother Social History Tobacco Use Smoking status: Never Smokeless tobacco: Never Vaping Use Vaping status: Never Used Substance Use Topics Alcohol use: No Drug use: No Prior to Admission medications as of 03/30/25 1355 Medication Sig Last Dose Taking metoprolol succinate ER (TOPROL XL) 100 mg Take 1.5 tablets by mouth once daily. Yes triamterene-hydroCHLOROthiazide (MAXZIDE) 75-50 mg per tablet Take 1 tablet by mouth once daily. Yes levonorgestrel (MIRENA) 21 mcg/24hr (up to 8 yrs) 52 mg IUD 1 Each by INTRAUTERINE route as directed. Yes lisinopril (ZESTRIL) 20 mg tablet Take 1 tablet by mouth once daily. Yes tretinoin (RETIN-A) 0.025 % topical cream Mix 50/50 with moisturizer and apply to the affected areas of the face every night. Yes PARoxetine (PAXIL) 10 mg tablet Take 1 tablet by mouth once daily. Yes ubrogepant (UBRELVY) 100 mg tablet Take 1 tab at migraine onset. May repeat once in 2 hours as needed. Yes DULoxetine (CYMBALTA) 60 mg capsule Take 1 capsule by mouth once daily. Yes Cholecalciferol, Vitamin D3, 50 mcg (2,000 unit) cap Take 1 capsule by mouth once daily. Yes Azelaic Acid 15 % gel Apply a thin layer to the full face once daily in the morning Norethindrone Acet-Ethinyl Est (JUNEL 1/20, 21,) 1-20 mg-mcg per tablet Take 1 tablet by mouth once daily. No medication comments found. ALLERGIES Allergen Reactions Codeine Tramadol Itching, Other: See Comments Dizziness Objective PHYSICAL EXAM: General: alert and oriented and healthy appearance. Pertinent negatives noted - not distressed. Skin: normal color, no rash or lesions. HEENT: pupils equal round. Cardiovascular: regular rate and rhythm, normal S1 and S2, no rub, murmurs, or gallop. Respiratory: normal breath sounds, no wheezes or crackles. No chest wall deformity or tenderness. Abdomen: bowel sounds present. Extremities: no deformity, no edema or tenderness, no joint swelling or clubbing. Neurological: normal cognition and motor skills. Gait normal. No weakness or sensory deficit. PAIN ASSESSMENT: Pain Pain Level: 3 Pain Location: Shoulder-Right VITALS: BP 129/84 Pulse 76 Temp 98.1 Resp 16 Ht 5' 2 (1.58m) Wt 157 lb (71.2kg) SpO2 99% LMP 02/24/2025 BMI 28.71 kg/(m^2). Diagnostic tests reviewed for today's visit: Lab Value Units Date High Low HB 13.5 g/dL 11/25/2024 15.5 11.5 HCT 40.8 % 11/25/2024 46.0 36.0 WBC 5.49 k/uL 11/25/2024 11.00 3.70 PLT 235 k/uL 11/25/2024 400 150 NA 139 mmol/L 11/25/2024 144 136 K 4.0 mmol/L 11/25/2024 5.1 3.7 GLUC 90 mg/dL 11/25/2024 99 74 BUN 15 mg/dL 11/25/2024 21 7 CREAT 0.73 mg/dL 11/25/2024 0.96 0.58 PTSEC No results within date range. INR No results within date range. APTT No results within date range. ALT 20 U/L 11/25/2024 38 7 AST 22 U/L 11/25/2024 35 13 TBILI 0.4 mg/dL 11/25/2024 1.3 0.2 TSH 1.720 mIU/L 11/25/2024 4.200 0.270 Lab Value Units Date High Low HCGQT No results within date range. UHCG No results within date range. HCG, BODY* No results within date range. Lab Value Units Date High Low ABORHD No results within date range. ABSCREEN No results within date range. Hemoglobin A1C (%) Date Value 11/25/2024 4.8 10/18/2023 5.1 No results found for this or any previous visit (from the past 8760 hours). Recent Results (from the past 52412 hours) ECHO Collection Time: 01/29/25 1:03 PM Impression CONCLUSIONS: - Exam indication: Hypertension - The left ventricle is normal in size. Left ventricular systolic function is normal. EF = 60 5% (2D biplane) Normal left ventricular diastolic function. - The right ventricle is normal in size. Right ventricular systolic function is normal. - There are no significant valvular abnormalities. - Exam was compared with the prior echocardiographic exam performed on 04/10/2023, no significant change. * * * Final * * * ARISCAT risk index interpretation 0 to 25 points: Low risk: 1.6% pulmonary complication rate 26 to 44 points: Intermediate risk: 13.3% pulmonary complication rate 45 to 123 points: High risk: 42.1% pulmonary complication rate Implantable Devices: IUD The Following Tests/Procedures Have Been Initiated: No test ordered in [facility] by surgeon Assessment/Plan Diagnosis: Superior glenoid labrum lesion of right shoulder, initial encounter [S43.431A] PLAN Planned Procedure: Procedure(s): SHOULDER ARTHROSCOPY W/ REPAIR SLAP LESION (slap repair) (Right) I spent a total of 40 minutes on the date of the service which included preparing to see the patient, [id number] patient care, completing clinical documentation, obtaining and/or reviewing separately obtained history, performing a medically appropriate examination, and counseling and educating the patient/family/caregiver. Instructions Given to Patient: Instructions located in the after visit summary. Patient given verbal and written preop instructions and voices comprehension and compliance. SIGNATURE: Sarah Garrett APRN.CNP PATIENT NAME: Maricruz Tejada DATE: March 30, 2025 TIME: 6:54 AM PAGER/CONTACT #: documented in this encounter [facility] 03-30-2025 Instructions Sarah Garrett APRN.SENIOR ACCOUNT CLERK - 03/30/2025 6:54 AM EDT PATIENT PREOPERATIVE INSTRUCTIONS Neto Mcarthur MD has scheduled you for your procedure at this surgery center: [facility]: [phone], [address] [facility] [address] [place] [address] Please read below carefully for your personalized instructions. Date of Surgery: 04/03/25 Arrival Time for Surgery: Your surgeon's office will provide you with your arrival time for surgery if they have not done so already. If you do not have your arrival time for surgery by the afternoon the day before your surgery you can call the surgeon's office. If you are scheduled for a Sunday surgery you can call the Sunday before. - Please be aware that emergency situations arise, which may delay or change your surgical time. If this happens, your surgeon's office will notify you as soon as possible and regret any inconvenience. Requirements for vaccination; 72-hour. Between getting vaccine and date of surgery Dietary Restrictions: - No solid food after midnight. - You may have 12 ounces of clear liquids (water, clear juices such as apple juice or gatorade, carbonated beverages, clear tea, black coffee, jello) until 2 hours before scheduled arrival at facility. This is important because if you do, your procedure may be canceled Medications: Pre Surgery Med Instructions Medication instructions Cholecalciferol, Vitamin D3, 50 mcg (2,000 unit) cap Stop 7 days before surgery. DULoxetine (CYMBALTA) 60 mg capsule If you normally take this medication in the morning, it is ok to take the morning of surgery with a sip of water. levonorgestrel (MIRENA) 21 mcg/24hr (up to 8 yrs) 52 mg IUD Follow prescriber's instructions. lisinopril (ZESTRIL) 20 mg tablet If you normally take this medication in the morning, it is ok to take the morning of surgery with a sip of water. metoprolol succinate ER (TOPROL XL) 100 mg If you normally take this medication in the morning, it is ok to take the morning of surgery with a sip of water. PARoxetine (PAXIL) 10 mg tablet If you normally take this medication in the morning, it is ok to take the morning of surgery with a sip of water. tretinoin (RETIN-A) 0.025 % topical cream DO NOT TAKE THE MORNING OF SURGERY. triamterene-hydroCHLOROthiazide (MAXZIDE) 75-50 mg per tablet DO NOT TAKE THE MORNING OF SURGERY. ubrogepant (UBRELVY) 100 mg tablet If you normally take this medication in the morning, it is ok to take the morning of surgery with a sip of water. Blood pressure medications See med list for instructions Take beta gaby day of surgery Do not take RENEE or ARB medications day of surgery Weight loss medications Sympathomimetics such as Adipex-P (Phentermine): Stop 4 days before surgery. Contrave (Naltrexone/Bupropion) Hold 2-3 days. Qsymia (Phentermine/Topiramate - Please contact your prescribing provider for Pre op directions. ( depending on the patients dose this medication may need tapered off. They should get pre op directions from their prescribing provider.) GLP-1 Agonists (oral and injectables) Hold 7 days. Blood Thinning Medications: - Stop NSAIDS (Ibuprofen, Advil, Aleve, Motrin, Celebrex, Mobic, etc.) 7 days before surgery, as directed by your surgeon. - You may take Tylenol (Acetaminophen) or any of your current prescribed pain medications that do not contain aspirin or NSAIDS as needed. - If you take any of the following blood thinners, please contact your surgeon and the physician who prescribes it for you in order to get perioperative instructions as soon as possible Blood thinners: Aspirin,Coumadin, Plavix, Eliquis, Pradaxa, Xarelto, Lovenox, Brilinta, Effient, Savaysa, etc. Supplements - Stop Vitamin E, fish oil, Ginko, Adamaris's Wort, flax seed oil, multivitamins, CBD oil, marijuana and other over the counter herbals and dietary supplements 7 days before surgery. This would not apply to cancer patients who are prescribed Marinol or any other prescription form of marijuana or CBD. If you are taking Phentermine please hold 4 days prior to surgery. Diabetes Medications Do not take the morning of surgery; Trajenta, Metformin, Actos/Pioglitazone and Amaryl/Glimepiride. For the following Medications, please HOLD 2 DAYS PRIOR TO SURGERY: Glucotrol/Glipizide, Januvia/Sitagliptin, Glyburide, Prandin/Repaglinide, Starlix/Nateglinide, Symlin/Pramlintide, For the following Medications, please HOLD 3 DAYS PRIOR TO SURGERY: Canagliflozin/Invokana, Dapagliflozin/Farxiga ,Empagliflozin/Jardiance, Invokamet/canagliflozin and metformin, Xigduo XR/ dapagliglozin and metformin, Glyxambi/ empagliflozin and metformin, Syndardy/ empagliflozin and metformin For the following Medications, please HOLD 4 DAYS PRIOR TO SURGERY: Ertugliflozin/Steglatro For the following Medications, please HOLD 7 DAYS PRIOR TO SURGERY: GLP-1 AGONIST: Adlyxin (lixisenatide), Bydureon BCise (exenatide suspension), Byetta (exenatide), Mounjaro (tirzepatide), Ozempic (semaglutide injection), Rybelsus (semaglutide tablets), Tanzeum (albiglutide), Trulicity (dulaglutide), Victoza (liraglutide), Wegovy (semaglutide), Saxenda (liraglutide) Insulin Medication Instructions: Please follow up with the provider that manages your Insulin and how to prepare you for surgery. Pain medications Approved pain medications can be taken the morning of surgery with a sip of water. For methadone instructions call surgeon and physician that prescribes it for pre op instructions. And send message to pharmacist If you start any new medications after today's visit, please contact the surgeon's office. Important Reminders: - If you use CPAP/BIPAP, bring the machine with you to the hospital if you are scheduled to stay over night. - If you are prescribed inhalers for breathing, continue using them AND bring them to the surgery center. - Candy, mints, gum and tobacco products are NOT permitted the morning of surgery. - Hearing aids, dentures and glasses may be worn the morning of surgery. - NO jewelry, body piercings, makeup, hairpins or contacts are to be worn the day of surgery. - NO lotion, creams, powders or deodorants on the skin the day of surgery - You will need to have someone else (Family or friend) drive you home once discharged from the hospital. You cannot take a cab or Uber. You are not allowed to drive yourself home after surgery. -You will need an adult(over the age of 18) to stay with you for the first 24 hours post surgery or your surgery may be cancelled. Please speak with your surgeon if this is an issue. If you develop symptoms such as a fever, cold, or flu, or have other changes to your health within TWO DAYS of scheduled surgery or the morning of surgery, please contact the surgery center above. Personal Belongings: - Leave ALL valuables and money at home or with family members. - You will need a form of ID and insurance card to check in the morning of surgery. - You will have to wear a hospital gown during your stay but if you wish to bring undergarments for after surgery you may. -If you do not have a copy of advance directives on file with us, please bring a copy with you on the day of surgery. If you already have an Advance Directive, please fax a copy to [phone] or email to for it to be added to your chart. If you do not have an Advance Directive, you can find the appropriate form and more information at [email or web address]. We recommend that you complete the Advance Directive form found on the website and bring it with you the day of your surgery. It can be witnessed and scanned into your chart that day. Please note-you should have a 72-hour period between getting your vaccine and date of surgery - If you have a stimulator, implant or pump that requires a remote please bring the remote with you day of surgery Hibiclens provided to patients requiring soap for surgery The anti-bacterial soap (Hibiclens) should be used TWICE prior to surgery: The night before surgery and the morning of surgery: - If you plan to wash your hair, do so with your regular shampoo. Then rinse hair and body thoroughly to remove any shampoo residue. - Wash your face with water or your regular soap. - Thoroughly rinse your body with water from the neck down - Apply Hibiclens directly on your skin or on a wet washcloth and wash gently. Move away from the shower stream when applying Hibiclens to ensure the CHG binds to the skin. - Pay special attention to the area where your surgery will be performed - Rinse thoroughly - Apply clean bedding and clean clothing after shower Do not use your regular soap after applying and rinsing Hibiclens. Do not apply any lotions, deodorants, powders, or perfumes to the body areas that have been cleaned with Hibiclens. If you already have an Advance Directive, please fax a copy to [phone] or Sonny LUCIANO at [phone] or email to for it to be added to your chart. If you do not have an Advance Directive, you can find the appropriate form and more information at [email or web address]. We recommend that you complete the Advance Directive form found on the website and bring it with you the day of your surgery. It can be witnessed and scanned into your chart that day. Sarah Garrett APRN.CNP documented in this encounter [facility] 03-25-2025 Telephone encounter Note Called patient in regard to missed pst Left voicemail with reschedule information Nargis Price March 25, 2025 12:00 PM [facility] 03-25-2025 Miscellaneous Notes Called patient in regard to missed pst Left voicemail with reschedule information Nargis Price March 25, 2025 12:00 PM documented in this encounter [facility] 03-03-2025 Note HNO ID: [id number] Author: RAYA TAVERAS APRN.CNM Service: ? Author Type: Belt Builder Helper Type: Progress Notes Filed: 03/03/2025 13:00 Note Text: Maricruz Tejada is a 19 year old who presents for her annual gynecologic exam without complaints. The patient is a 19-year-old female with a history of migraines and HTN, presenting for follow-up on IUD insertion performed in December. The patient reports continuous bleeding since the IUD insertion in December, with a 2-week cessation period occurring 2 weeks ago. Bleeding has resumed and is currently core fitter than previous episodes, which were intermittently heavy. She describes the bleeding as manageable and is satisfied with the IUD choice. She denies abdominal pain, chest pain, cephalalgia, eye problems, severe leg pain, nipple discharge, breast lumps, constipation, diarrhea, nausea, or emesis. She also denies vaginal discharge, pruritus, burning, or odor, as well as dyspareunia or postcoital bleeding. She reports experiencing intermittent sharp pain in the left breast, described as weird and not consistent, unrelated to her menstrual cycle. She notes that both breasts were sore during her period but emphasizes the sharp pain in the left breast as unusual and news Still get period: Yes LMP: 02/24/2025 Menses: irregular - Mirena IUD Menstrual flow: Light Bleeding amount bothersome: No Bleeding between periods: Yes Period symptoms: Cramps Sexually active: Yes Contraception: IUD Contraception frequency: Always HPV vaccine: Yes HPV:N/A Last pap smear: Never History of abnormal pap: No Colposcopy: No. Leep: No. Cone biopsy: No. Bothersome pelvic pain: No Last mammogram: never 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 History Comments: Sexual Activity: Yes; Male Contraception: No contraception data on record FAMILY HISTORY Problem Relation Age of Onset Hypertension Mother Started in mid-30's Hypertension Father No Known Problems Sister No Known Problems Brother Hypertension Maternal Grandmother Hypertension Maternal Grandfather Lipids Maternal Grandfather other (FIBROMYALGIA) Paternal Grandmother SOCIAL HISTORY Social History Tobacco Use Smoking status: Never Smokeless tobacco: Never Vaping Use Vaping status: Never Used Substance Use Topics Alcohol use: No Drug use: No REVIEW OF SYSTEMS Abdomen: No abdominal pain, nausea, vomiting, diarrhea, or constipation. No bloating, early satiety, indigestion, or increased flatulence. Bladder: No dysuria, gross hematuria, urinary frequency, urinary urgency, or incontinence. Breast: No breast lumps, nipple d/c, overlying skin changes, redness or skin retraction. Allergies and current medication updated:Yes SENSITIVE EXAM: The sensitive examination was discussed with the Patient or Patient's Authorized Other Sports Official. As applicable, any other physician, advance practice provider, medical student, or other health professional student that will be observing or involved in the sensitive examination for educational or training purposes was discussed with the Patient or Authorized Other Sports Official. The Patient or Authorized Other Sports Official has agreed to proceed with the sensitive examination. (Sensitive examination includes inspection and/or palpation of the breasts, pelvis, prostate and anorectal regions). EXAM: BP 110/60 Ht 5' 2 (1.58m) Wt 150 lb (68.0kg) LMP 02/24/2025 BMI 27.43 kg/(m2). GENERAL: pleasant, female in no apparent distress HEENT: Normocephalic, atraumatic, mucus membranes moist, and no lesions NECK: Supple, full range of motion, no adenopathy, and thyroid normal DERMATOLOGY: Normal, without lesions, non-icteric, and non-hirsute BREAST: soft, non-tender, symmetric, no dominant mass, normal nipple-areolar complex, no lymphadenopathy, and no nipple discharge CHEST: Normal inspiratory effort ABDOMEN: soft, non-tender, and no masses PELVIC: external genitalia normal, normal Bartholin's glands, urethra, [place]'s glands, no vulvar lesions, no cervical lesions, good vaginal support, physiologic discharge present, normal appearing perineal body and perianal region. IUD strings in place BIMANUAL: uterus normal size, shape and consistency, no adnexal masses, and non-tender RECTOVAGINAL: rectovaginal exam negative for any masses or nodularity. NEURO: alert and oriented x3,exam grossly non-focal EXTREMITIES: normal ASSESSMENT/PLAN: 1. Encounter for gynecological examination (general) (routine) with abnormal findings (Z01.411) - Performed breast examination; advised patient to monitor for timing and severity of breast pain and to wear a supportive bra.Advised patient to report any persistent or worsening symptoms. 2. Sc (more content not included)... [facility] 03-03-2025 History of Presen t illness Narrative Maricruz Tejada is a 19 year old who presents for her annual gynecologic exam without complaints. The patient is a 19-year-old female with a history of migraines and HTN, presenting for follow-up on IUD insertion performed in December. The patient reports continuous bleeding since the IUD insertion in December, with a 2-week cessation period occurring 2 weeks ago. Bleeding has resumed and is currently core fitter than previous episodes, which were intermittently heavy. She describes the bleeding as manageable and is satisfied with the IUD choice. She denies abdominal pain, chest pain, cephalalgia, eye problems, severe leg pain, nipple discharge, breast lumps, constipation, diarrhea, nausea, or emesis. She also denies vaginal discharge, pruritus, burning, or odor, as well as dyspareunia or postcoital bleeding. She reports experiencing intermittent sharp pain in the left breast, described as weird and not consistent, unrelated to her menstrual cycle. She notes that both breasts were sore during her period but emphasizes the sharp pain in the left breast as unusual and news Still get period: Yes LMP: 02/24/2025 Menses: irregular - Mirena IUD Menstrual flow: Light Bleeding amount bothersome: No Bleeding between periods: Yes Period symptoms: Cramps Sexually active: Yes Contraception: IUD Contraception frequency: Always HPV vaccine: Yes HPV:N/A Last pap smear: Never History of abnormal pap: No Colposcopy: No. Leep: No. Cone biopsy: No. Bothersome pelvic pain: No Last mammogram: never 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 History Comments: Sexual Activity: Yes; Male Contraception: No contraception data on record FAMILY HISTORY Problem Relation Age of Onset Hypertension Mother Started in mid-30's Hypertension Father No Known Problems Sister No Known Problems Brother Hypertension Maternal Grandmother Hypertension Maternal Grandfather Lipids Maternal Grandfather other (FIBROMYALGIA) Paternal Grandmother SOCIAL HISTORY Social History Tobacco Use Smoking status: Never Smokeless tobacco: Never Vaping Use Vaping status: Never Used Substance Use Topics Alcohol use: No Drug use: No REVIEW OF SYSTEMS Abdomen: No abdominal pain, nausea, vomiting, diarrhea, or constipation. No bloating, early satiety, indigestion, or increased flatulence. Bladder: No dysuria, gross hematuria, urinary frequency, urinary urgency, or incontinence. Breast: No breast lumps, nipple d/c, overlying skin changes, redness or skin retraction. Allergies and current medication updated:Yes SENSITIVE EXAM: The sensitive examination was discussed with the Patient or Patient's Authorized Other Sports Official. As applicable, any other physician, advance practice provider, medical student, or other health professional student that will be observing or involved in the sensitive examination for educational or training purposes was discussed with the Patient or Authorized Other Sports Official. The Patient or Authorized Other Sports Official has agreed to proceed with the sensitive examination. (Sensitive examination includes inspection and/or palpation of the breasts, pelvis, prostate and anorectal regions). EXAM: BP 110/60 Ht 5' 2 (1.58m) Wt 150 lb (68.0kg) LMP 02/24/2025 BMI 27.43 kg/(m^2). GENERAL: pleasant, female in no apparent distress HEENT: Normocephalic, atraumatic, mucus membranes moist, and no lesions NECK: Supple, full range of motion, no adenopathy, and thyroid normal DERMATOLOGY: Normal, without lesions, non-icteric, and non-hirsute BREAST: soft, non-tender, symmetric, no dominant mass, normal nipple-areolar complex, no lymphadenopathy, and no nipple discharge CHEST: Normal inspiratory effort ABDOMEN: soft, non-tender, and no masses PELVIC: external genitalia normal, normal Bartholin's glands, urethra, [place]'s glands, no vulvar lesions, no cervical lesions, good vaginal support, physiologic discharge present, normal appearing perineal body and perianal region. IUD strings in place BIMANUAL: uterus normal size, shape and consistency, no adnexal masses, and non-tender RECTOVAGINAL: rectovaginal exam negative for any masses or nodularity. NEURO: alert and oriented x3,exam grossly non-focal EXTREMITIES: normal ASSESSMENT/PLAN: 1. Encounter for gynecological examination (general) (routine) with abnormal findings (Z01.411) - Performed breast examination; advised patient to monitor for timing and severity of breast pain and to wear a supportive bra.Advised patient to report any persistent or worsening symptoms. 2. Screening for cervical cancer (Z12.4) Encounter for screening for human papillomavirus (HPV) (Z11.51) 3. Screen for STD (sexually transmitted disease) (Z11.3) Previous screening for gonorrhea and chlamydia in December; no current symptoms of vaginal discharge, itching, burning, or odor. No additional STD testing requested at this time. 4. IUD (intrauterine device) in place (Z97.5) IUD inserted in December; patient experiencing irregular bleeding, which is expected within the first six months post-insertion. No other complications reported. - Educated patient on the expected course of irregular bleeding as the endometrial lining adjusts. - Advised patient to monitor bleeding patterns and report if bleeding becomes unmanageable. 1) Health maintenance: Pap done with HPV. Mammogram starting age 40. 2) Contraception: IUD. Contraceptive options reviewed and information provided. 3) STD screening: Declined STD check. 4) Follow up one year or sooner as needed Raya Taveras APRN.CNM documented in this encounter [facility] 02-16-2025 Note HNO ID: [id number] Author: NETO MCARTHUR MD Service: ? Author Type: Physician Type: Progress Notes Filed: 02/16/2025 13:59 Note Text: Chief Complaint: Right shoulder pain Consulting Physician: Self History: Maricruz is a 19 year old female who presents after a MRI scan. The pain is located along the superior and lateral aspect of the shoulder. The pain is typically dull but can be sharp at times. The pain does not radiate below the elbow. She denies any neck, elbow, or wrist pain. No numbness or tingling in the extremity. The pain is exacerbated by overhead activities such as putting on a shirt, combing their hair, and lifting objects away from their body. No previous injury to the shoulder. Some night pain especially if they lay on the affected side. She does not report any weakness. No fever, chills, night sweats, weight loss, or other constitutional symptoms. Some popping and clicking noted but no locking or catching. She quantitates their pain as 5/10 Review Of Systems: GENERAL: Well developed, well nourished. No acute distress PAIN: Negative for pain, history of chronic pain or current treatment for chronic pain conditions CARDIOVASCULAR: Negative for chest pain, leg swelling and palpations. MSK: Negative for joint pain, swelling, back pain, muscle pain. SKIN: Negative for lesions, rash, itching, metal sensitivity NEURO: Negative for seizure, trauma, numbness/tingling of extremities. ENDOCRINE: Negative for Diabetes Type 1 and Type 2 HEMATOLOGY: Negative for excessive bleeding, clots, bleeding disorders. Physical Examination: Patient is alert and oriented and in no acute distress. Examination of the C-spine reveals no palpable tenderness. There is no atrophy or asymmetry. The cervical spine has normal range of motion. There is normal cervical lordosis. Examination of the shoulder reveals no evidence of atrophy and the skin is intact. No obvious soft tissue of bony abnormality. She has no pain with palpation along the SC and AC joints. She does have pain along the greater tuberosity and subacromial space. She has 175 degrees forward elevation actively and 175 degrees passively as compared to the other side. A positive impingement sign and positive Pascual test are noted. Mild crepitation noted along the subacromial space with ROM. She has 85 degrees external and T8 degreesinternal rotation passively and actively as compared to the other side. Anegative empty can test is noted with good strength. Good strength is also noted with external rotation and she has a negative lift-off test. A negative cross body adduction test is noted as well as negative Yergason?s, Speed?s, and O? Oj?s tests. She has full ROM of both elbows and wrists. Good pulses and good cap refill noted. Gross sensation is intact. Reflexes are symmetric bilaterally. The opposite joint reveals full ROM, no pain with palpation, good stability and good strength. MRI Evaluation: MRI examination report reveals the patient has evidence of a questionable superior labral tear. No evidence of anterior-inferior labral pathology. Biceps tendon is intact. Glenohumeral joint is intact as well. No evidence of rotator cuff pathology. Assessment: Superior glenoid labrum lesion of right shoulder, initial encounter (primary encounter diagnosis) Plan: The patient understands the diagnosis, treatment options both operative and non-operative, their associated risks, complications, benefits, outcomes and rehabilitation, and failures and wishes to proceed with surgical intervention. Patient has opted for surgical management. She understands the possibility of a negative arthroscopy. She is willing proceed with surgical management. Surgical intervention will include right shoulder arthroscopy, possible open, possible subacromial decompression, labral repair versus debridement. The patient understands the possibility of biceps tenotomy or tenodesis. Patient understands the possibility of a cosmetic biceps deformity. She understands that surgery cannot be guaranteed to relieve all the symptoms and there is a small but unlikely chance that the symptoms could be worse rather than better. She understands the risks as significant as can occur, including but no limited to the additional risks of loss of limb, infection, deep venous thrombosis, pulmonary embolism, failure of this procedure, wound healing problems, neurovascular injury, continued pain, weakened and muscle atrophy, reflex sympathetic dystrophy and scarring and stiffness. She understands, all questions were answered, and the patient has been provided an informed consent. Neto Mcarthur MD [facility] 02-16-2025 History of Presen t illness Narrative Chief Complaint: Right shoulder pain Consulting Physician: Self History: Maricruz is a 19 year old female who presents after a MRI scan. The pain is located along the superior and lateral aspect of the shoulder. The pain is typically dull but can be sharp at times. The pain does not radiate below the elbow. She denies any neck, elbow, or wrist pain. No numbness or tingling in the extremity. The pain is exacerbated by overhead activities such as putting on a shirt, combing their hair, and lifting objects away from their body. No previous injury to the shoulder. Some night pain especially if they lay on the affected side. She does not report any weakness. No fever, chills, night sweats, weight loss, or other constitutional symptoms. Some popping and clicking noted but no locking or catching. She quantitates their pain as 5/10 Review Of Systems: GENERAL: Well developed, well nourished. No acute distress PAIN: Negative for pain, history of chronic pain or current treatment for chronic pain conditions CARDIOVASCULAR: Negative for chest pain, leg swelling and palpations. MSK: Negative for joint pain, swelling, back pain, muscle pain. SKIN: Negative for lesions, rash, itching, metal sensitivity NEURO: Negative for seizure, trauma, numbness/tingling of extremities. ENDOCRINE: Negative for Diabetes Type 1 and Type 2 HEMATOLOGY: Negative for excessive bleeding, clots, bleeding disorders. Physical Examination: Patient is alert and oriented and in no acute distress. Examination of the C-spine reveals no palpable tenderness. There is no atrophy or asymmetry. The cervical spine has normal range of motion. There is normal cervical lordosis. Examination of the shoulder reveals no evidence of atrophy and the skin is intact. No obvious soft tissue of bony abnormality. She has no pain with palpation along the SC and AC joints. She does have pain along the greater tuberosity and subacromial space. She has 175 degrees forward elevation actively and 175 degrees passively as compared to the other side. A positive impingement sign and positive Pascual test are noted. Mild crepitation noted along the subacromial space with ROM. She has 85 degrees external and T8 degrees internal rotation passively and actively as compared to the other side. A negative empty can test is noted with good strength. Good strength is also noted with external rotation and she has a negative lift-off test. A negative cross body adduction test is noted as well as negative Yergason s, Speed s, and O Oj s tests. She has full ROM of both elbows and wrists. Good pulses and good cap refill noted. Gross sensation is intact. Reflexes are symmetric bilaterally. The opposite joint reveals full ROM, no pain with palpation, good stability and good strength. MRI Evaluation: MRI examination report reveals the patient has evidence of a questionable superior labral tear. No evidence of anterior-inferior labral pathology. Biceps tendon is intact. Glenohumeral joint is intact as well. No evidence of rotator cuff pathology. Assessment: Superior glenoid labrum lesion of right shoulder, initial encounter (primary encounter diagnosis) Plan: The patient understands the diagnosis, treatment options both operative and non-operative, their associated risks, complications, benefits, outcomes and rehabilitation, and failures and wishes to proceed with surgical intervention. Patient has opted for surgical management. She understands the possibility of a negative arthroscopy. She is willing proceed with surgical management. Surgical intervention will include right shoulder arthroscopy, possible open, possible subacromial decompression, labral repair versus debridement. The patient understands the possibility of biceps tenotomy or tenodesis. Patient understands the possibility of a cosmetic biceps deformity. She understands that surgery cannot be guaranteed to relieve all the symptoms and there is a small but unlikely chance that the symptoms could be worse rather than better. She understands the risks as significant as can occur, including but no limited to the additional risks of loss of limb, infection, deep venous thrombosis, pulmonary embolism, failure of this procedure, wound healing problems, neurovascular injury, continued pain, weakened and muscle atrophy, reflex sympathetic dystrophy and scarring and stiffness. She understands, all questions were answered, and the patient has been provided an informed consent. Neto Mcarthur MD documented in this encounter [facility] 02-13-2025 Instructions Jaqueline Cardona APRN.[facility] - 02/13/2025 1:12 PM EDT AFTER VISIT CARE BOTOX INJECTION While these procedures can be extremely helpful as part of your headache treatment plan, they can irritate the muscles and tissues in your head, neck and shoulders. Proper follow-up care is important to avoid muscle spasms and temporary pain increase within the following 3-5 days after your clinic visit. Here are some tips to help decrease side-effects that may occur and maximize the effectiveness of your pain relief -HYDRATION Hydration is important to help nourish your muscles and tissues. Drink 60-80 oz of non caffeinated fluid at least for 3 days after your visit. -REST Rest will help avoid further irritation of muscle and tissues. Remember that you need to give your body time to adjust. NO strenuous activity for at least the first 24 hours after your visit. Gentle stretching, yoga, meditation or even swimming is OK and encouraged. -ICE/HEAT Since these procedures irritate muscles, there can be some swelling. Alternating ice and heat every 3-5 times per day may help decrease this, while also optimizing pain relief Use cool gel packs for ice for 10 min. Use a warm moist towel covered with a dry towel on neck and shoulders. Alternate stretching each side of the neck. -STRETCHING Slow, gentle stretching of the neck and shoulders once every hour is helpful to avoid muscle spasms. -TREAT MUSCLE SPASMS If you are already prescribed a muscle relaxer such as baclofen, tizanidine or flexeril, use as directed. If you do not have one, talk to your provider to find out if this would be safe for you to use. Do not rub or massage the area for 48-72 hours. -OTHER No hair dyes or permanents for 24 hours. If you are paying out of pocket for Botox go online to Botox Savings Program and see if you qualify for reimbursement. Return in 3 months for your next Botox Injection documented in this encounter [facility] 02-13-2025 History of Presen t illness Narrative Images from the original note were not included. Headache Center Follow-up Visit Impression: Chronic migraine without aura, intractable, without status migrainosus (primary encounter diagnosis) New Onabotulinum Toxin A (BotoxTM) for Migraine Indication: Chronic Intractable Migraine Treatment #: 1 Referral Expiration: 07/08/2025 Number of moderate-severe migraine days/month: 20 Number of mild migraine days/month: 10 Number of headache free days/month: 0 (0 headache-free hours) Migraine severity: 10/10 The patient has been assessed for disorders which could contribute to breathing or swallowing difficulty, and there is no contraindication with PREEMPT Botox. There is no documented allergic reaction/hypersensitivity to any botulinum toxin and there is no active infection at proposed injection site. HEADACHE SCORES: 04/23/2024 Headache Questions ID Migraine Screener: 3 (Positive) ER visits in the last year: 0 Hospital stays in the last year: 0 Limited ADLs in the last month: 15 Days missed from work or school in the last month: 3 Days headache pain free in the last month: 15 Days per month with ALL of the following symptoms - decreased productivity, light sensitivity and nausea: 8 PRN medication usage in the last month: 15 04/23/2024 HIT-6 HIT-6 67 (Severe impact) 04/23/2024 OCTAVIO - 2/7 SCORES OCTAVIO-2 Score 1 04/23/2024 Migraine Specific QOL - Higher scores indicate better HRQL Role Function-Restrictive Transformed Score (range: 0-100) 34.29 Role Function-Preventive Transformed Score (range: 0-100) 45 Emotional Function Transformed Score (range: 0-100) 53.33 04/23/2024 PHQ-9 Score 12 BP 128/85 Pulse 91 Wt 71.2 kg (157 lb) LMP 01/22/2025 (Exact Date) BMI 27.81 kg/m Patient name: Maricruz Tejada : 2005 ALLERGIES Allergen Reactions Codeine Tramadol Itching, Other: See Comments Dizziness UNIVERSAL PROTOCOL / SAFETY CHECKLIST Procedure: Onabotulinum toxin A for migraine Informed Consent Consent Obtained: Written Monroe Protocol A moment to CARE was completed SIGN IN Personnel directly involved with the procedure wore the appropriate PPE Special Equipment: N/A Patient/Surrogate Stated/Verified: Patient name, Date of , Relevant allergies and Intended procedure TIME OUT No relevant labs, photos, and/or imaging studies were applicable for review. Consent documented and matches the intended procedure No correct side/site applicable for marking and visibility. No medications required for procedure. No fire risk assessment and interventions applicable. No implant(s) inserted. SIGN OUT No specimen collected. Written Consent Obtained: Written LOT #: [id number] Expiration Date: Month: Year: 2026 Second vial: LOT #: [id number] Expiration Date: Month: Year: 2026 Injection Sites Left (Units) Left (Sites) Right (Units) Right (Sites) TOTAL (Units) Bartacker 5 1 5 1 10 Procerus Units: 5 Sites: 1 5 Frontalis 10 2 10 2 20 Temporalis optional follow the pain 20 5 4 1 20 5 4 1 50 Occipitalis optional follow the pain 15 10 3 2 15 10 3 2 50 Cervical PSP 10 2 10 2 20 Trapezius optional follow the pain 15 7.5 3 2 15 7.5 3 2 45 Total Units used: 200 Total Units wasted: 0 Patient tolerated procedure well. Prior Therapies Duration of Use Dose Side effect Analgesic Hydrocodone/Acetaminophen (Vicodin, [place]) Tramadol (Ultram) Anti-Anxiety Buspirone (Buspar) Anti-Depressant and Antipsychotic Bupropion (Wellbutrin) Duloxetine (Cymbalta) Paroxetine (Paxil) Sertraline (Zoloft) Antiemetics Ondansetron Anti-Migraine Eletriptan (Relpax) Naratriptan (Amerge) Rizatriptan (Maxalt) Blood Pressure Lisinopril (Zestril) Metoprolol (Lopressor,Toprol XL) Muscle Relaxer Baclofen (Lioresal) Other Medications Dextroamphetamine (Adderal) Prednisone Over the Counter Medications Acetaminophen (Tylenol) Acetaminophen/Aspirin/Caffeine (Excedrin, Goody s) Aspirin Ibuprofen (Advil, Motrin) Naproxen sodium (Aleve) Jaqueline Cardona APRN.SENIOR ACCOUNT CLERK documented in this encounter [facility] 02-13-2025 Note HNO ID: [id number] Author: JAQUELINE CARDONA APRN.CNP Service: ? Author Type: Nurse Practitioner Type: Progress Notes Filed: 02/13/2025 13:43 Note Text: Headache Center Follow-up Visit Impression: Chronic migraine without aura, intractable, without status migrainosus (primary encounter diagnosis) New Onabotulinum Toxin A (BotoxTM) for Migraine Indication: Chronic Intractable Migraine Treatment #: 1 Referral Expiration: 07/08/2025 Number of moderate-severe migraine days/month: 20 Number of mild migraine days/month: 10 Number of headache free days/month: 0 (0 headache-free hours) Migraine severity: 10/10 The patient has been assessed for disorders which could contribute to breathing or swallowing difficulty, and there is no contraindication with PREEMPT Botox. There is no documented allergic reaction/hypersensitivity to any botulinum toxin and there is no active infection at proposed injection site. HEADACHE SCORES: 04/23/2024 Headache Questions ID Migraine Screener: 3 (Positive) ER visits in the last year: 0 Hospital stays in the last year: 0 Limited ADLs in the last month: 15 Days missed from work or school in the last month: 3 Days headache pain free in the last month: 15 Days per month with ALL of the following symptoms - decreased productivity, light sensitivity and nausea: 8 PRN medication usage in the last month: 15 04/23/2024 HIT-6 HIT-6 67 (Severe impact) 04/23/2024 OCTAVIO - 2/7 SCORES OCTAVIO-2 Score 1 04/23/2024 Migraine Specific QOL - Higher scores indicate better HRQL Role Function-Restrictive Transformed Score (range: 0-100) 34.29 Role Function-Preventive Transformed Score (range: 0-100) 45 Emotional Function Transformed Score (range: 0-100) 53.33 04/23/2024 PHQ-9 Score 12 BP 128/85 Pulse 91 Wt 71.2 kg (157 lb) LMP 01/22/2025 (Exact Date) BMI 27.81 kg/m? Patient name: Maricruz Tejada : 2005 ALLERGIES Allergen Reactions Codeine Tramadol Itching, Other: See Comments Dizziness UNIVERSAL PROTOCOL / SAFETY CHECKLIST Procedure: Onabotulinum toxin A for migraine Informed Consent Consent Obtained: Written Monroe Protocol A moment to CARE was completed SIGN IN Personnel directly involved with the procedure wore the appropriate PPE Special Equipment: N/A Patient/Surrogate Stated/Verified: Patient name, Date of , Relevant allergies and Intended procedure TIME OUT No relevant labs, photos, and/or imaging studies were applicable for review. Consent documented and matches the intended procedure No correct side/site applicable for marking and visibility. No medications required for procedure. No fire risk assessment and interventions applicable. No implant(s) inserted. SIGN OUT No specimen collected. Written Consent Obtained: Written LOT #: [id number] Expiration Date: Month: Year: 2026 Second vial: LOT #: [id number] Expiration Date: Month: Year: 2026 Injection Sites Left (Units) Left (Sites) Right (Units) Right (Sites) TOTAL (Units) Bartacker 5 1 5 1 10 Procerus Units: 5 Sites: 1 5 Frontalis 10 2 10 2 20 Temporalis optional follow the pain 20 5 4 1 20 5 4 1 50 Occipitalis optional follow the pain 15 10 3 2 15 10 3 2 50 Cervical PSP 10 2 10 2 20 Trapezius optional follow the pain 15 7.5 3 2 15 7.5 3 2 45 Total Units used: 200 Total Units wasted: 0 Patient tolerated procedure well. Prior Therapies Duration of Use Dose Side effect Analgesic Hydrocodone/Acetaminophen (Vicodin, [place]) Tramadol (Ultram) Anti-Anxiety Buspirone (Buspar) Anti-Depressant and Antipsychotic Bupropion (Wellbutrin) Duloxetine (Cymbalta) Paroxetine (Paxil) Sertraline (Zoloft) Antiemetics Ondansetron Anti-Migraine Eletriptan (Relpax) Naratriptan (Amerge) Rizatriptan (Maxalt) Blood Pressure Lisinopril (Zestril) Metoprolol (Lopressor,Toprol XL) Muscle Relaxer Baclofen (Lioresal) Other Medications Dextroamphetamine (Adderal) Prednisone Over the Counter Medications Acetaminophen (Tylenol) Acetaminophen/Aspirin/Caffeine (Excedrin, Goody?s) Aspirin Ibuprofen (Advil, Motrin) Naproxen sodium (Aleve) Jaqueline Cardona APRN.[facility] 01-29-2025 History of Presen t illness Narrative Radiology Service Progress Note PATIENT NAME: Maricruz Tejada DATE OF SERVICE: January 29, 2025 TIME: 3:22 PM PATIENT IDENTITY VERIFICATION COMPLETED USING TWO (2) IDENTIFIERS: Name and Date of confirmed by patient verbally. FALL SCREENING: Has the patient had 2 falls in the last year or 1 fall with injury or currently using an Ambulatory Assistive Device (Walker, Cane, Wheelchair, Crutches, etc.)? No PATIENT GENDER DATA: Assigned female at . status: : No status: NO. PATIENT RELEVANT IMPLANT DATA REVIEWED: Not Applicable PATIENT PRESENTS WITH AN IMPLANTABLE OR ATTACHED RECOVERY ENGINEER: No RADIOLOGY DEPARTMENT: Ultrasound PERIPHERAL IV DATA: Not applicable SIGNED BY: Sabrina Fish RDMS January 29, 2025 3:22 PM documented in this encounter [facility] 01-29-2025 Note HNO ID: [id number] Author: SABRINA FISH RDMS Service: ? Author Type: Industrial Equipment Mechanic Type: Progress Notes Filed: 01/29/2025 15:22 Note Text: Radiology Service Progress Note PATIENT NAME: Maricruz Tejada DATE OF SERVICE: January 29, 2025 TIME: 3:22 PM PATIENT IDENTITY VERIFICATION COMPLETED USING TWO (2) IDENTIFIERS: Name and Date of confirmed by patient verbally. FALL SCREENING: Has the patient had 2 falls in the last year or 1 fall with injury or currently using an Ambulatory Assistive Device (Walker, Cane, Wheelchair, Crutches, etc.)? No PATIENT GENDER DATA: Assigned female at . status: : No status: NO. PATIENT RELEVANT IMPLANT DATA REVIEWED: Not Applicable PATIENT PRESENTS WITH AN IMPLANTABLE OR ATTACHED RECOVERY ENGINEER: No RADIOLOGY DEPARTMENT: Ultrasound PERIPHERAL IV DATA: Not applicable SIGNED BY: Sabrina Fish RDMS January 29, 2025 3:22 PM [facility] 01-29-2025 History of Presen t illness Narrative Chief Complaint Patient presents with: Hypertension HPI Maricruz Tejada is a 19 year old female who presents here today for Above Complaints.. Still having dizziness. Overall doesn't feel good. Sore throat. Was dx with bronchitis in express care but doesn't feel like that's what going on-has been taking Augmentin x1 week. Always tired. Does snore. Not sure if she stops breathing or not. A couple of times has woken up during the night with a jump, but not sure exactly what the cause. Past medical history, appointments, medications, allergies reviewed. Previous Medical History PAST MEDICAL HISTORY Diagnosis Date Calculus of kidney Essential hypertension Migraine headache with aura PMDD (premenstrual dysphoric disorder) 2018 POTS (postural orthostatic tachycardia syndrome) borderline Rotator cuff dysfunction, right partial tear Syncope and collapse Tachycardia Previous Surgical History PAST SURGICAL HISTORY Procedure Laterality Date INSERTION OF IUD 10/24/2021 removed 09/14/2023 PAST SURGICAL HISTORY OF removal of renal calculi via lithotrypsy PAST SURGICAL HISTORY OF 06/24/2014 PCP of right thumb UNLISTED PROCEDURE LACRIMAL SYSTEM 02/18/2004 DR WHEELER Family History FAMILY HISTORY Problem Relation Age of Onset Hypertension Mother Started in mid-30's Hypertension Father No Known Problems Sister No Known Problems Brother Hypertension Maternal Grandmother Hypertension Maternal Grandfather Lipids Maternal Grandfather other (FIBROMYALGIA) Paternal Grandmother Patient Allergies ALLERGIES Allergen Reactions Codeine Tramadol Itching, Other: See Comments Dizziness Current Medications Current Outpatient Medications on File Prior to Visit Medication Sig triamterene-hydroCHLOROthiazide (MAXZIDE) 75-50 mg per tablet Take 1 tablet by mouth once daily. levonorgestrel (MIRENA) 21 mcg/24hr (up to 8 yrs) 52 mg IUD 1 Each by INTRAUTERINE route as directed. lisinopril (ZESTRIL) 20 mg tablet Take 1 tablet by mouth once daily. tretinoin (RETIN-A) 0.025 % topical cream Mix 50/50 with moisturizer and apply to the affected areas of the face every night. Azelaic Acid 15 % gel Apply a thin layer to the full face once daily in the morning PARoxetine (PAXIL) 10 mg tablet Take 1 tablet by mouth once daily. metoprolol succinate ER (TOPROL XL) 100 mg Take 1.5 tablets by mouth once daily. galcanezumab-gnlm (EMGALITY PEN) 120 mg/mL pen Inject 2 pens (240 mg) under the skin 1 time only for initial loading dose. Refrigerate. Do not shake. galcanezumab-gnlm (EMGALITY PEN) 120 mg/mL pen Inject 1 mL subcutaneously once every month. Refrigerate. Do not shake. Patient should start on June 04, 2024. ubrogepant (UBRELVY) 100 mg tablet Take 1 tab at migraine onset. May repeat once in 2 hours as needed. DULoxetine (CYMBALTA) 60 mg capsule Take 1 capsule by mouth once daily. Cholecalciferol, Vitamin D3, 50 mcg (2,000 unit) cap Take 1 capsule by mouth once daily. [DISCONTINUED] Norethindrone Acet-Ethinyl Est (,) 1-20 mg-mcg per tablet Take 1 tablet by mouth once daily. No current facility-administered medications on file prior to visit. Social History Social History Tobacco Use Smoking status: Never Smokeless tobacco: Never Vaping Use Vaping status: Never Used Substance Use Topics Alcohol use: No Comment: rare Drug use: No Review of Symptoms REVIEW OF SYSTEMS See HPI, otherwise negative EXAM: LMP 01/22/2025 (Exact Date) General Appearance: Well appearing, alert, in no acute distress, well-hydrated, well nourished, fatigued Lungs: Lungs clear to auscultation. No wheezing, rhonchi, rales.. Heart: RRR without murmur, gallop, or rubs. No ectopy. Psychiatric: pleasant, cooperative. Health Maintenance List Asthma Action Plan Never done Asthma Control Test Never done Meningococcal B Vaccine(1 of 2 - Standard) Never done Spirometry Never done Depression Screening Never done Anxiety Screening Never done Hepatitis C Screening Never done HIV Screening Never done BP Controlled (<130/80) Never done Cervical Cancer Screening Never done Covid-19 Vaccine(2023-) Never done DTaP,Tdap,Td Vaccine(7 - Td or Tdap) due on 09/22/2025 GC (Gonorrhea) Screening (18-24) due on 01/05/2026 Chlamydia Screening (18-24) due on 01/05/2026 Annual PCP Team Chronic Disease Visit due on 01/15/2026 Hepatitis B Vaccine Completed HPV Vaccine Completed Influenza Vaccine Completed Data reviewed Previous records, office notes ASSESSMENT/PLAN: 1. Hypertension, essential - ICD9: 401.9, ICD10: I10 (primary diagnosis) - Controlled - Continue current medications - Recommend home blood pressure monitoring, to bring results to next visit - Encouraged sodium restriction, DASH or Mediterranean diet - Recommend regular aerobic exercise - METOPROLOL SUCCINATE ER 100 MG TABLET,EXTENDED RELEASE 24 HR - TILT TABLE EVALUATION 2. Palpitations - ICD9: 785.1, ICD10: R00.2 - METOPROLOL SUCCINATE ER 100 MG TABLET,EXTENDED RELEASE 24 HR - TILT TABLE EVALUATION 3. Tachycardia - ICD9: 785.0, ICD10: R00.0 - METOPROLOL SUCCINATE ER 100 MG TABLET,EXTENDED RELEASE 24 HR - TILT TABLE EVALUATION 4. Fatigue, unspecified type - ICD9: 780.79, ICD10: R53.83 - CYNDIE ABARCA PANEL - TILT TABLE EVALUATION 5. Sore throat - ICD9: 462, ICD10: J02.9 - CYNDIE ABARCA PANEL - US THYROID/PARATHYROID 6. Tired - ICD9: 780.79, ICD10: R53.83 - CYNDIE ABARCA PANEL - US THYROID/PARATHYROID 7. Sensation of swollen throat - ICD9: 784.99, ICD10: R68.89 - CYNDIE ABARCA PANEL - US THYROID/PARATHYROID 8. Dizziness - ICD9: 780.4, ICD10: R42 - TILT TABLE EVALUATION 9. Screening for thyroid disorder - ICD9: V77.0, ICD10: Z13.29 - US THYROID/PARATHYROID Kelsi Bermudez APRN.CNP Medical Decision Making: Problems: Low: Stable chronic illness Moderate: Acute illness with systemic symptoms Data: Unique test result(s) reviewed: 2 Unique test(s) ordered: 3+ Risk: Moderate: Drug management Medical Decision Making Level: 4 - Moderate documented in this encounter [facility] 01-29-2025 Note HNO ID: [id number] Author: KELSI BERMUDEZ APRN.SENIOR ACCOUNT CLERK Service: ? Author Type: Nurse Practitioner Type: Progress Notes Filed: 01/29/2025 15:52 Note Text: Chief Complaint Patient presents with: Hypertension HPI Maricruz Tejada is a 19 year old female who presents here today for Above Complaints.. Still having dizziness. Overall doesn't feel good. Sore throat. Was dx with bronchitis in express care but doesn't feel like that's what going on-has been taking Augmentin x1 week. Always tired. Does snore. Not sure if she stops breathing or not. A couple of times has woken up during the night with a jump, but not sure exactly what the cause. Past medical history, appointments, medications, allergies reviewed. Previous Medical History PAST MEDICAL HISTORY Diagnosis Date Calculus of kidney Essential hypertension Migraine headache with aura PMDD (premenstrual dysphoric disorder) 2019 POTS (postural orthostatic tachycardia syndrome) borderline Rotator cuff dysfunction, right partial tear Syncope and collapse Tachycardia Previous Surgical History PAST SURGICAL HISTORY Procedure Laterality Date INSERTION OF IUD 10/24/2021 removed 09/14/2023 PAST SURGICAL HISTORY OF removal of renal calculi via lithotrypsy PAST SURGICAL HISTORY OF 06/24/2014 PCP of right thumb UNLISTED PROCEDURE LACRIMAL SYSTEM 02/18/2004 DR WHEELER Family History FAMILY HISTORY Problem Relation Age of Onset Hypertension Mother Started in mid-30's Hypertension Father No Known Problems Sister No Known Problems Brother Hypertension Maternal Grandmother Hypertension Maternal Grandfather Lipids Maternal Grandfather other (FIBROMYALGIA) Paternal Grandmother Patient Allergies ALLERGIES Allergen Reactions Codeine Tramadol Itching, Other: See Comments Dizziness Current Medications Current Outpatient Medications on File Prior to Visit Medication Sig triamterene-hydroCHLOROthiazide (MAXZIDE) 75-50 mg per tablet Take 1 tablet by mouth once daily. levonorgestrel (MIRENA) 21 mcg/24hr (up to 8 yrs) 52 mg IUD 1 Each by INTRAUTERINE route as directed. lisinopril (ZESTRIL) 20 mg tablet Take 1 tablet by mouth once daily. tretinoin (RETIN-A) 0.025 % topical cream Mix 50/50 with moisturizer and apply to the affected areas of the face every night. Azelaic Acid 15 % gel Apply a thin layer to the full face once daily in the morning PARoxetine (PAXIL) 10 mg tablet Take 1 tablet by mouth once daily. metoprolol succinate ER (TOPROL XL) 100 mg Take 1.5 tablets by mouth once daily. galcanezumab-gnlm (EMGALITY PEN) 120 mg/mL pen Inject 2 pens (240 mg) under the skin 1 time only for initial loading dose. Refrigerate. Do not shake. galcanezumab-gnlm (EMGALITY PEN) 120 mg/mL pen Inject 1 mL subcutaneously once every month. Refrigerate. Do not shake. Patient should start on June 04, 2024. ubrogepant (UBRELVY) 100 mg tablet Take 1 tab at migraine onset. May repeat once in 2 hours as needed. DULoxetine (CYMBALTA) 60 mg capsule Take 1 capsule by mouth once daily. Cholecalciferol, Vitamin D3, 50 mcg (2,000 unit) cap Take 1 capsule by mouth once daily. [DISCONTINUED] Norethindrone Acet-Ethinyl Est (JUNE,) 1-20 mg-mcg per tablet Take 1 tablet by mouth once daily. No current facility-administered medications on file prior to visit. Social History Social History Tobacco Use Smoking status: Never Smokeless tobacco: Never Vaping Use Vaping status: Never Used Substance Use Topics Alcohol use: No Comment: rare Drug use: No Review of Symptoms REVIEW OF SYSTEMS See HPI, otherwise negative EXAM: LMP 01/22/2025 (Exact Date) General Appearance: Well appearing, alert, in no acute distress, well-hydrated, well nourished, fatigued Lungs: Lungs clear to auscultation. No wheezing, rhonchi, rales.. Heart: RRR without murmur, gallop, or rubs. No ectopy. Psychiatric: pleasant, cooperative. Health Maintenance List Asthma Action Plan Never done Asthma Control Test Never done Meningococcal B Vaccine(1 of 2 - Standard) Never done Spirometry Never done Depression Screening Never done Anxiety Screening Never done Hepatitis C Screening Never done HIV Screening Never done BP Controlled (<130/80) Never done Cervical Cancer Screening Never done Covid-19 Vaccine(2023- season) Never done DTaP,Tdap,Td Vaccine(7 - Td or Tdap) due on 09/22/2025 GC (Gonorrhea) Screening (18-24) due on 01/05/2026 Chlamydia Screening (18-24) due on 01/05/2026 Annual PCP Team Chronic Disease Visit due on 01/15/2026 Hepatitis B Vaccine Completed HPV Vaccine Completed Influenza Vaccine Completed Data reviewed Previous records, office notes ASSESSMENT/PLAN: 1. Hypertension, essential - ICD9: 401.9, ICD10: I10 (primary diagnosis) - Controlled - Continue current medications - Recommend home blood pressure monitoring, to bring results to next visit - Encouraged sodium r (more content not included)... [facility] 01-22-2025 Note HNO ID: [id number] Author: VIN CANADA APRN.SENIOR ACCOUNT CLERK Service: ? Author Type: Nurse Practitioner Type: Progress Notes Filed: 01/22/2025 13:22 Note Text: [facility] Subjective Maricruz Tejada is a 19 year old female. HPI Nontoxic-appearing 19-year-old female presents urgent care chief plaint sore throat headache cough chest congestion. Duration of symptoms 1 week. Associated symptoms listed above. Most prominent symptom today sinus pressure cough. Sinus pressure has worsened recently. OTC medications little to no success. Sick contact similar signs symptoms. Denies any chest pain shortness breath fever nausea vomiting abdominal pain. Denies chance . Is not breast-feeding. Past medical history prescription medications allergies reviewed. .Patient presents with: Sore Throat: Headache, congestion, loss of appetite, body aches x 1 week PAST MEDICAL HISTORY Diagnosis Date Calculus of kidney Essential hypertension Migraine headache with aura PMDD (premenstrual dysphoric disorder) 2018 POTS (postural orthostatic tachycardia syndrome) borderline Rotator cuff dysfunction, right partial tear Syncope and collapse Tachycardia PAST SURGICAL HISTORY Procedure Laterality Date INSERTION OF IUD 10/24/2021 removed 09/14/2023 PAST SURGICAL HISTORY OF removal of renal calculi via lithotrypsy PAST SURGICAL HISTORY OF 06/24/2014 PCP of right thumb UNLISTED PROCEDURE LACRIMAL SYSTEM 02/18/2004 DR WHEELER ALLERGIES Codeine and Tramadol MEDICATIONS triamterene-hydroCHLOROthiazide (MAXZIDE) 75-50 mg per tablet Take 1 tablet by mouth once daily. levonorgestrel (MIRENA) 21 mcg/24hr (up to 8 yrs) 52 mg IUD 1 Each by INTRAUTERINE route as directed. lisinopril (ZESTRIL) 20 mg tablet Take 1 tablet by mouth once daily. tretinoin (RETIN-A) 0.025 % topical cream Mix 50/50 with moisturizer and apply to the affected areas of the face every night. Azelaic Acid 15 % gel Apply a thin layer to the full face once daily in the morning PARoxetine (PAXIL) 10 mg tablet Take 1 tablet by mouth once daily. metoprolol succinate ER (TOPROL XL) 100 mg Take 1.5 tablets by mouth once daily. galcanezumab-gnlm (EMGALITY PEN) 120 mg/mL pen Inject 2 pens (240 mg) under the skin 1 time only for initial loading dose. Refrigerate. Do not shake. galcanezumab-gnlm (EMGALITY PEN) 120 mg/mL pen Inject 1 mL subcutaneously once every month. Refrigerate. Do not shake. Patient should start on June 04, 2024. ubrogepant (UBRELVY) 100 mg tablet Take 1 tab at migraine onset. May repeat once in 2 hours as needed. DULoxetine (CYMBALTA) 60 mg capsule Take 1 capsule by mouth once daily. Cholecalciferol, Vitamin D3, 50 mcg (2,000 unit) cap Take 1 capsule by mouth once daily. [DISCONTINUED] Norethindrone Acet-Ethinyl Est (,) 1-20 mg-mcg per tablet Take 1 tablet by mouth once daily. FAMILY HISTORY Problem Relation Age of Onset Hypertension Mother Started in mid-30's Hypertension Father No Known Problems Sister No Known Problems Brother Hypertension Maternal Grandmother Hypertension Maternal Grandfather Lipids Maternal Grandfather other (FIBROMYALGIA) Paternal Grandmother Social History Tobacco Use Smoking status: Never Smokeless tobacco: Never Vaping Use Vaping status: Never Used Substance Use Topics Alcohol use: No Comment: rare Drug use: No Review of Systems Constitutional: Negative for chills, diaphoresis, fatigue and fever. HENT: Positive for sinus pressure and sinus pain. Negative for congestion, drooling, ear discharge, ear pain, rhinorrhea, sneezing, sore throat and trouble swallowing. Eyes: Negative for pain, discharge, redness, itching and visual disturbance. Respiratory: Positive for cough. Negative for chest tightness, shortness of breath and wheezing. Cardiovascular: Negative for chest pain. Gastrointestinal: Negative for abdominal distention, abdominal pain, blood in stool, constipation, diarrhea, nausea and vomiting. Genitourinary: Negative for difficulty urinating and dysuria. Musculoskeletal: Positive for myalgias. Negative for arthralgias, joint swelling, neck pain and neck stiffness. Skin: Negative for rash. Neurological: Positive for headaches. Negative for dizziness, weakness and numbness. Objective BP 122/80 Pulse 109 Temp 36.8 ?C (98.3 ?F) Resp 22 Wt 69 kg (152 lb 1.9 oz) LMP 01/22/2025 (Exact Date) SpO2 100% BMI 26.95 kg/m? Hr 93 Physical Exam Constitutional: Appearance: Normal appearance. HENT: Head: Normocephalic. Jaw: No trismus, tenderness, swelling or pain on movement. Nose: Congestion present. Right Sinus: Maxillary sinus tenderness present. Left Sinus: Maxillary sinus tenderness present. Mouth/Throat: Mouth: Mucous membranes are moist. Pharynx: Oropharynx is clear. Uvula midline. No oropharyngeal exudate or posterior oropharyngeal erythema. Eyes: Conjunctiva/scler (more content not included)... [facility] 01-22-2025 History of Presen t illness Narrative [facility] Subjective Maricruz Tejada is a 19 year old female. HPI Nontoxic-appearing 19-year-old female presents urgent care chief plaint sore throat headache cough chest congestion. Duration of symptoms 1 week. Associated symptoms listed above. Most prominent symptom today sinus pressure cough. Sinus pressure has worsened recently. OTC medications little to no success. Sick contact similar signs symptoms. Denies any chest pain shortness breath fever nausea vomiting abdominal pain. Denies chance . Is not breast-feeding. Past medical history prescription medications allergies reviewed. .Patient presents with: Sore Throat: Headache, congestion, loss of appetite, body aches x 1 week PAST MEDICAL HISTORY Diagnosis Date Calculus of kidney Essential hypertension Migraine headache with aura PMDD (premenstrual dysphoric disorder) 2019 POTS (postural orthostatic tachycardia syndrome) borderline Rotator cuff dysfunction, right partial tear Syncope and collapse Tachycardia PAST SURGICAL HISTORY Procedure Laterality Date INSERTION OF IUD 10/24/2021 removed 09/14/2023 PAST SURGICAL HISTORY OF removal of renal calculi via lithotrypsy PAST SURGICAL HISTORY OF 06/24/2014 PCP of right thumb UNLISTED PROCEDURE LACRIMAL SYSTEM 02/18/2004 DR WHEELER ALLERGIES Codeine and Tramadol MEDICATIONS triamterene-hydroCHLOROthiazide (MAXZIDE) 75-50 mg per tablet Take 1 tablet by mouth once daily. levonorgestrel (MIRENA) 21 mcg/24hr (up to 8 yrs) 52 mg IUD 1 Each by INTRAUTERINE route as directed. lisinopril (ZESTRIL) 20 mg tablet Take 1 tablet by mouth once daily. tretinoin (RETIN-A) 0.025 % topical cream Mix 50/50 with moisturizer and apply to the affected areas of the face every night. Azelaic Acid 15 % gel Apply a thin layer to the full face once daily in the morning PARoxetine (PAXIL) 10 mg tablet Take 1 tablet by mouth once daily. metoprolol succinate ER (TOPROL XL) 100 mg Take 1.5 tablets by mouth once daily. galcanezumab-gnlm (EMGALITY PEN) 120 mg/mL pen Inject 2 pens (240 mg) under the skin 1 time only for initial loading dose. Refrigerate. Do not shake. galcanezumab-gnlm (EMGALITY PEN) 120 mg/mL pen Inject 1 mL subcutaneously once every month. Refrigerate. Do not shake. Patient should start on June 04, 2024. ubrogepant (UBRELVY) 100 mg tablet Take 1 tab at migraine onset. May repeat once in 2 hours as needed. DULoxetine (CYMBALTA) 60 mg capsule Take 1 capsule by mouth once daily. Cholecalciferol, Vitamin D3, 50 mcg (2,000 unit) cap Take 1 capsule by mouth once daily. [DISCONTINUED] Norethindrone Acet-Ethinyl Est (12/08, ,) 1-20 mg-mcg per tablet Take 1 tablet by mouth once daily. FAMILY HISTORY Problem Relation Age of Onset Hypertension Mother Started in mid-30's Hypertension Father No Known Problems Sister No Known Problems Brother Hypertension Maternal Grandmother Hypertension Maternal Grandfather Lipids Maternal Grandfather other (FIBROMYALGIA) Paternal Grandmother Social History Tobacco Use Smoking status: Never Smokeless tobacco: Never Vaping Use Vaping status: Never Used Substance Use Topics Alcohol use: No Comment: rare Drug use: No Review of Systems Constitutional: Negative for chills, diaphoresis, fatigue and fever. HENT: Positive for sinus pressure and sinus pain. Negative for congestion, drooling, ear discharge, ear pain, rhinorrhea, sneezing, sore throat and trouble swallowing. Eyes: Negative for pain, discharge, redness, itching and visual disturbance. Respiratory: Positive for cough. Negative for chest tightness, shortness of breath and wheezing. Cardiovascular: Negative for chest pain. Gastrointestinal: Negative for abdominal distention, abdominal pain, blood in stool, constipation, diarrhea, nausea and vomiting. Genitourinary: Negative for difficulty urinating and dysuria. Musculoskeletal: Positive for myalgias. Negative for arthralgias, joint swelling, neck pain and neck stiffness. Skin: Negative for rash. Neurological: Positive for headaches. Negative for dizziness, weakness and numbness. Objective BP 122/80 Pulse 109 Temp 36.8 C (98.3 F) Resp 22 Wt 69 kg (152 lb 1.9 oz) LMP 01/22/2025 (Exact Date) SpO2 100% BMI 26.95 kg/m Hr 93 Physical Exam Constitutional: Appearance: Normal appearance. HENT: Head: Normocephalic. Jaw: No trismus, tenderness, swelling or pain on movement. Nose: Congestion present. Right Sinus: Maxillary sinus tenderness present. Left Sinus: Maxillary sinus tenderness present. Mouth/Throat: Mouth: Mucous membranes are moist. Pharynx: Oropharynx is clear. Uvula midline. No oropharyngeal exudate or posterior oropharyngeal erythema. Eyes: Conjunctiva/sclera: Conjunctivae normal. Cardiovascular: Rate and Rhythm: Tachycardia present. Pulmonary: Effort: Pulmonary effort is normal. Breath sounds: Normal breath sounds. No wheezing, rhonchi or rales. Abdominal: Palpations: Abdomen is soft. Tenderness: There is no abdominal tenderness. There is no guarding or rebound. Musculoskeletal: General: Normal range of motion. Cervical back: Normal range of motion and neck supple. No edema or erythema. No pain with movement. Normal range of motion. Lymphadenopathy: Cervical: No cervical adenopathy. Skin: General: Skin is warm. Findings: No rash. Neurological: General: No focal deficit present. Mental Status: She is alert and oriented to person, place, and time. Mental status is at baseline. Assessment and Plan History and Record Review Clinical information obtained from an independent historian. History obtained from or confirmed by: parent. Systemic symptoms present included: Disposition The patient was discharged. Procedures ASSESSMENT/PLAN: 1. Sore throat - ICD9: 462, ICD10: J02.9 (primary diagnosis) - STREP A MOLECULAR (POC) 2. Sinobronchitis - ICD9: 473.9, 490, ICD10: J32.9, J40 Strep test negative. Diagnosed sinobronchitis. Placed on Augmentin. Patient was educated on supportive therapies. Patient will follow up with primary care provider 3 to 5 days reevaluation patient was instructed to immediately proceed to emergency room for any new, worsening, or symptoms lasting longer than anticipated. The patient's clinical presentation is otherwise unremarkable at this time. Based on exam and clinical finding, the patient is stable for discharge. Plan of care was discussed with patient. Patient verbalizes understanding and agrees to plan of care. This note was generated using [employer] software. It may contain errors in wording, punctuation, or spelling. Vin Canada APRN.MAYA documented in this encounter [facility] 01-20-2025 History of Presen t illness Narrative Radiology Service Progress Note PATIENT NAME: Maricruz Tejada DATE OF SERVICE: January 20, 2025 TIME: 9:22 AM PATIENT IDENTITY VERIFICATION COMPLETED USING TWO (2) IDENTIFIERS: Name and Date of confirmed by patient verbally and Name and Date of confirmed by identification band. FALL SCREENING: Has the patient had 2 falls in the last year or 1 fall with injury or currently using an Ambulatory Assistive Device (Walker, Cane, Wheelchair, Crutches, etc.)? No PATIENT GENDER DATA: Assigned female at . status: : No status: NO. PATIENT RELEVANT IMPLANT DATA REVIEWED: Not Applicable PATIENT PRESENTS WITH AN IMPLANTABLE OR ATTACHED RECOVERY ENGINEER: No RADIOLOGY DEPARTMENT: MR; Exam(s) Completed: Upper MSK: Shoulder, right Arthrogram PERIPHERAL IV DATA: Not applicable SIGNED BY: Deb Kiser January 20, 2025 9:22 AM documented in this encounter [facility] 01-20-2025 Note HNO ID: [id number] Author: CIARA MCKAY Tech Service: Radiology Author Type: Industrial Equipment Mechanic Type: Progress Notes Filed: 01/20/2025 09:22 Note Text: Radiology Service Progress Note PATIENT NAME: Maricruz Tejada DATE OF SERVICE: January 20, 2025 TIME: 9:22 AM PATIENT IDENTITY VERIFICATION COMPLETED USING TWO (2) IDENTIFIERS: Name and Date of confirmed by patient verbally and Name and Date of confirmed by identification band. FALL SCREENING: Has the patient had 2 falls in the last year or 1 fall with injury or currently using an Ambulatory Assistive Device (Walker, Cane, Wheelchair, Crutches, etc.)? No PATIENT GENDER DATA: Assigned female at . status: : No status: NO. PATIENT RELEVANT IMPLANT DATA REVIEWED: Not Applicable PATIENT PRESENTS WITH AN IMPLANTABLE OR ATTACHED RECOVERY ENGINEER: No RADIOLOGY DEPARTMENT: MR; Exam(s) Completed: Upper MSK: Shoulder, right Arthrogram PERIPHERAL IV DATA: Not applicable SIGNED BY: Deb Kiser January 20, 2025 9:22 AM [facility] 01-15-2025 Note SARS-COV-2 (AGENT OF COVID-19) RNA: Not detected INFLUENZA A RNA: Not detected INFLUENZA B RNA: Not detected RESPIRATORY SYNCYTIAL VIRUS (RSV) RNA: Not detected [facility] Comment on above: Performed By: #### [id number] ####[facility] LABCLIA [id number] [address] [place] [facility] 01-15-2025 Instructions Kelsi Bermudez APRN.CNP - 01/15/2025 8:48 AM EST Add the Maxzide BP medication Start wearing compression stockings at work Schedule your ultrasound of your kidneys and their arteries Schedule echocardiogram-ultrasound of your heart documented in this encounter [facility] 01-15-2025 Note HNO ID: [id number] Author: KELSI BERMUDEZ APRN.CNP Service: ? Author Type: Nurse Practitioner Type: Progress Notes Filed: 01/15/2025 09:37 Note Text: Chief Complaint Patient presents with: Blood Pressure HPI Maricruz Tejada is a 19 year old female who presents here today for Above Complaints.. 3 days ago felt terrible at work, very lightheaded, brain fog, couldn't think straight. BP 166/117, pitting edema 2 days ago BP 177/111 at work, exhausted, weak, pitting edema, heart racing Slept all day yesterday Got IUD 1.5 weeks ago Past medical history, appointments, medications, allergies reviewed. Previous Medical History PAST MEDICAL HISTORY Diagnosis Date Calculus of kidney Essential hypertension Migraine headache with aura PMDD (premenstrual dysphoric disorder) 2019 POTS (postural orthostatic tachycardia syndrome) borderline Rotator cuff dysfunction, right partial tear Syncope and collapse Tachycardia Previous Surgical History PAST SURGICAL HISTORY Procedure Laterality Date INSERTION OF IUD 10/24/2021 removed 09/14/2023 PAST SURGICAL HISTORY OF removal of renal calculi via lithotrypsy PAST SURGICAL HISTORY OF 06/24/2014 PCP of right thumb UNLISTED PROCEDURE LACRIMAL SYSTEM 02/18/2004 DR WHEELER Family History FAMILY HISTORY Problem Relation Age of Onset Hypertension Mother Started in mid-30's Hypertension Father No Known Problems Sister No Known Problems Brother Hypertension Maternal Grandmother Hypertension Maternal Grandfather Lipids Maternal Grandfather other (FIBROMYALGIA) Paternal Grandmother Patient Allergies ALLERGIES Allergen Reactions Codeine Tramadol Itching, Other: See Comments Dizziness Current Medications Current Outpatient Medications on File Prior to Visit Medication Sig levonorgestrel (MIRENA) 21 mcg/24hr (up to 8 yrs) 52 mg IUD 1 Each by INTRAUTERINE route as directed. lisinopril (ZESTRIL) 20 mg tablet Take 1 tablet by mouth once daily. tretinoin (RETIN-A) 0.025 % topical cream Mix 50/50 with moisturizer and apply to the affected areas of the face every night. Azelaic Acid 15 % gel Apply a thin layer to the full face once daily in the morning PARoxetine (PAXIL) 10 mg tablet Take 1 tablet by mouth once daily. metoprolol succinate ER (TOPROL XL) 100 mg Take 1.5 tablets by mouth once daily. galcanezumab-gnlm (EMGALITY PEN) 120 mg/mL pen Inject 2 pens (240 mg) under the skin 1 time only for initial loading dose. Refrigerate. Do not shake. galcanezumab-gnlm (EMGALITY PEN) 120 mg/mL pen Inject 1 mL subcutaneously once every month. Refrigerate. Do not shake. Patient should start on June 04, 2024. ubrogepant (UBRELVY) 100 mg tablet Take 1 tab at migraine onset. May repeat once in 2 hours as needed. DULoxetine (CYMBALTA) 60 mg capsule Take 1 capsule by mouth once daily. Cholecalciferol, Vitamin D3, 50 mcg (2,000 unit) cap Take 1 capsule by mouth once daily. [DISCONTINUED] Norethindrone Acet-Ethinyl Est (,) 1-20 mg-mcg per tablet Take 1 tablet by mouth once daily. No current facility-administered medications on file prior to visit. Social History Social History Tobacco Use Smoking status: Never Smokeless tobacco: Never Vaping Use Vaping status: Never Used Substance Use Topics Alcohol use: No Comment: rare Drug use: No Review of Symptoms REVIEW OF SYSTEMS See HPI, otherwise negative EXAM: BP 148/90 Pulse 96 Wt 70.8 kg (156 lb) LMP 11/19/2024 (Within Days) BMI 27.63 kg/m? General Appearance: ill-appearing, alert, in no acute distress, well-hydrated, well nourished.. Lungs: Lungs clear to auscultation. No wheezing, rhonchi, rales.. Heart: RRR without murmur, gallop, or rubs. No ectopy. Psychiatric: pleasant, cooperative, somewhat flat affect. Health Maintenance List Asthma Action Plan Never done Asthma Control Test Never done Meningococcal B Vaccine(1 of 2 - Standard) Never done Spirometry Never done Depression Screening Never done Anxiety Screening Never done Hepatitis C Screening Never done HIV Screening Never done Cervical Cancer Screening Never done Covid-19 Vaccine(2023- season) Never done DTaP,Tdap,Td Vaccine(7 - Td or Tdap) due on 09/22/2025 Annual PCP Team Chronic Disease Visit due on 12/26/2025 GC (Gonorrhea) Screening (18-24) due on 01/05/2026 BP Controlled (<130/80) due on 01/05/2026 Chlamydia Screening (18-24) due on 01/05/2026 Hepatitis B Vaccine Completed HPV Vaccine Completed Influenza Vaccine Completed Data reviewed Previous records, office notes ASSESSMENT/PLAN: 1. Hypertension, essential - ICD9: 401.9, ICD10: I10 (primary diagnosis) - Uncontrolled She is aware of red flag s/s F/u in the office in 2 weeks, sooner if necessary Will start wearing compression stockings at wor - BLOOD PRESSURE TEST KIT-MEDIUM CUFF - TRIAMTERENE 75 MG-HYDROCHLOROTHIAZIDE 50 MG TABLET - US KIDNEY/BLADDER - U (more content not included)... [facility] 01-15-2025 History of Presen t illness Narrative Chief Complaint Patient presents with: Blood Pressure HPI Maricruz Tejada is a 19 year old female who presents here today for Above Complaints.. 3 days ago felt terrible at work, very lightheaded, brain fog, couldn't think straight. BP 166/117, pitting edema 2 days ago BP 177/111 at work, exhausted, weak, pitting edema, heart racing Slept all day yesterday Got IUD 1.5 weeks ago Past medical history, appointments, medications, allergies reviewed. Previous Medical History PAST MEDICAL HISTORY Diagnosis Date Calculus of kidney Essential hypertension Migraine headache with aura PMDD (premenstrual dysphoric disorder) 2018 POTS (postural orthostatic tachycardia syndrome) borderline Rotator cuff dysfunction, right partial tear Syncope and collapse Tachycardia Previous Surgical History PAST SURGICAL HISTORY Procedure Laterality Date INSERTION OF IUD 10/24/2021 removed 09/14/2023 PAST SURGICAL HISTORY OF removal of renal calculi via lithotrypsy PAST SURGICAL HISTORY OF 06/24/2014 PCP of right thumb UNLISTED PROCEDURE LACRIMAL SYSTEM 02/18/2004 DR WHEELER Family History FAMILY HISTORY Problem Relation Age of Onset Hypertension Mother Started in mid-30's Hypertension Father No Known Problems Sister No Known Problems Brother Hypertension Maternal Grandmother Hypertension Maternal Grandfather Lipids Maternal Grandfather other (FIBROMYALGIA) Paternal Grandmother Patient Allergies ALLERGIES Allergen Reactions Codeine Tramadol Itching, Other: See Comments Dizziness Current Medications Current Outpatient Medications on File Prior to Visit Medication Sig levonorgestrel (MIRENA) 21 mcg/24hr (up to 8 yrs) 52 mg IUD 1 Each by INTRAUTERINE route as directed. lisinopril (ZESTRIL) 20 mg tablet Take 1 tablet by mouth once daily. tretinoin (RETIN-A) 0.025 % topical cream Mix 50/50 with moisturizer and apply to the affected areas of the face every night. Azelaic Acid 15 % gel Apply a thin layer to the full face once daily in the morning PARoxetine (PAXIL) 10 mg tablet Take 1 tablet by mouth once daily. metoprolol succinate ER (TOPROL XL) 100 mg Take 1.5 tablets by mouth once daily. galcanezumab-gnlm (EMGALITY PEN) 120 mg/mL pen Inject 2 pens (240 mg) under the skin 1 time only for initial loading dose. Refrigerate. Do not shake. galcanezumab-gnlm (EMGALITY PEN) 120 mg/mL pen Inject 1 mL subcutaneously once every month. Refrigerate. Do not shake. Patient should start on June 04, 2024. ubrogepant (UBRELVY) 100 mg tablet Take 1 tab at migraine onset. May repeat once in 2 hours as needed. DULoxetine (CYMBALTA) 60 mg capsule Take 1 capsule by mouth once daily. Cholecalciferol, Vitamin D3, 50 mcg (2,000 unit) cap Take 1 capsule by mouth once daily. [DISCONTINUED] Norethindrone Acet-Ethinyl Est (,) 1-20 mg-mcg per tablet Take 1 tablet by mouth once daily. No current facility-administered medications on file prior to visit. Social History Social History Tobacco Use Smoking status: Never Smokeless tobacco: Never Vaping Use Vaping status: Never Used Substance Use Topics Alcohol use: No Comment: rare Drug use: No Review of Symptoms REVIEW OF SYSTEMS See HPI, otherwise negative EXAM: BP 148/90 Pulse 96 Wt 70.8 kg (156 lb) LMP 11/19/2024 (Within Days) BMI 27.63 kg/m General Appearance: ill-appearing, alert, in no acute distress, well-hydrated, well nourished.. Lungs: Lungs clear to auscultation. No wheezing, rhonchi, rales.. Heart: RRR without murmur, gallop, or rubs. No ectopy. Psychiatric: pleasant, cooperative, somewhat flat affect. Health Maintenance List Asthma Action Plan Never done Asthma Control Test Never done Meningococcal B Vaccine(1 of 2 - Standard) Never done Spirometry Never done Depression Screening Never done Anxiety Screening Never done Hepatitis C Screening Never done HIV Screening Never done Cervical Cancer Screening Never done Covid-19 Vaccine(2023- season) Never done DTaP,Tdap,Td Vaccine(7 - Td or Tdap) due on 09/22/2025 Annual PCP Team Chronic Disease Visit due on 12/26/2025 GC (Gonorrhea) Screening (18-24) due on 01/05/2026 BP Controlled (<130/80) due on 01/05/2026 Chlamydia Screening (18-24) due on 01/05/2026 Hepatitis B Vaccine Completed HPV Vaccine Completed Influenza Vaccine Completed Data reviewed Previous records, office notes ASSESSMENT/PLAN: 1. Hypertension, essential - ICD9: 401.9, ICD10: I10 (primary diagnosis) - Uncontrolled She is aware of red flag s/s F/u in the office in 2 weeks, sooner if necessary Will start wearing compression stockings at [facility] - BLOOD PRESSURE TEST KIT-MEDIUM CUFF - TRIAMTERENE 75 MG-HYDROCHLOROTHIAZIDE 50 MG TABLET - US KIDNEY/BLADDER - US RE[facility] - ECHO - PERFLUTREN LIPID MICROSPHERES 1.1 MG/ML INJECTION IN NS 10 ML - SODIUM CHLORIDE 0.9 % (FLUSH) INJECTION SYRINGE 2. Resistant hypertension - ICD9: 401.9, ICD10: I1A.0 She is aware of red flag s/s F/u in the office in 2 weeks, sooner if necessary Will start wearing compression stockings at [facility] - KIDNEY/BLADDER - US [facility] - ECHO - PERFLUTREN LIPID MICROSPHERES 1.1 MG/ML INJECTION IN NS 10 ML - SODIUM CHLORIDE 0.9 % (FLUSH) INJECTION SYRINGE 3. Pedal edema - ICD9: 782.3, ICD10: R60.0 She is aware of red flag s/s F/u in the office in 2 weeks, sooner if necessary Will start wearing compression stockings at [facility] - KIDNEY/BLADDER - US [facility] - COVID & INFLUENZA A/B & RSV PCR, ROUTINE - ECHO - PERFLUTREN LIPID MICROSPHERES 1.1 MG/ML INJECTION IN NS 10 ML - SODIUM CHLORIDE 0.9 % (FLUSH) INJECTION SYRINGE 4. Brain fog - ICD9: 799.59, ICD10: R41.89 She is aware of red flag s/s F/u in the office in 2 weeks, sooner if necessary Will start wearing compression stockings at [facility] - US KIDNEY/BLADDER - US RENAL [facility]ERY [facility] - COVID & INFLUENZA A/B & RSV PCR, ROUTINE - ECHO - PERFLUTREN LIPID MICROSPHERES 1.1 MG/ML INJECTION IN NS 10 ML - SODIUM CHLORIDE 0.9 % (FLUSH) INJECTION SYRINGE 5. Malaise - ICD9: 780.79, ICD10: R53.81 She is aware of red flag s/s F/u in the office in 2 weeks, sooner if necessary Will start wearing compression stockings at [facility] - US KIDNEY/BLADDER - US [facility] - COVID & INFLUENZA A/B & RSV PCR, ROUTINE 6. Fatigue, unspecified type - ICD9: 780.79, ICD10: R53.83 She is aware of red flag s/s F/u in the office in 2 weeks, sooner if necessary Will start wearing compression stockings at [facility] KIDNEY/BLADDER - [facility] - COVID & INFLUENZA A/B & RSV PCR, ROUTINE - ECHO - PERFLUTREN LIPID MICROSPHERES 1.1 MG/ML INJECTION IN NS 10 ML - SODIUM CHLORIDE 0.9 % (FLUSH) INJECTION SYRINGE 7. Generalized weakness - ICD9: 780.79, ICD10: R53.1 She is aware of red flag s/s F/u in the office in 2 weeks, sooner if necessary Will start wearing compression stockings at [facility] KIDNEY/BLADDER - US [facility] - COVID & INFLUENZA A/B & RSV PCR, ROUTINE - ECHO - PERFLUTREN LIPID MICROSPHERES 1.1 MG/ML INJECTION IN NS 10 ML - SODIUM CHLORIDE 0.9 % (FLUSH) INJECTION SYRINGE 8. Lightheaded - ICD9: 780.4, ICD10: R42 She is aware of red flag s/s F/u in the office in 2 weeks, sooner if necessary Will start wearing compression stockings at work - KIDNEY/BLADDER - [facility] - COVID & INFLUENZA A/B & RSV PCR, ROUTINE - ECHO - PERFLUTREN LIPID MICROSPHERES 1.1 MG/ML INJECTION IN NS 10 ML - SODIUM CHLORIDE 0.9 % (FLUSH) INJECTION SYRINGE 9. Exposure to influenza - ICD9: V01.79, ICD10: Z20.828 If positive for influenza A will plan for Tamaflu rx, this was discussed with patient - COVID & INFLUENZA A/B & RSV PCR, ROUTINE Kelsi Bermudez APRN.CNP documented in this encounter [facility] 01-05-2025 Note HNO ID: [id number] Author: RAYA TAVERAS APRN.CNM Service: ? Author Type: Belt Builder Helper Type: Progress Notes Filed: 01/05/2025 16:06 Note Text: Maricruz presents today for IUD insertion for contraception. Patient's last menstrual period was 11/19/2024 (within days). GC/chlamydia: Last tested 2022, agreeable to testing today. test: negative Side effects including irregular bleeding were discussed with the patient. The patient understands that it should be removed in 8 years or sooner if the patient desires a . IUD source: office provided IUD lot #: [id number] Exp date: 02/16/2027 UNIVERSAL PROTOCOL / SAFETY CHECKLIST Procedure to be Performed: Intrauterine Device (IUD) insertion Mirena Sign In: A Moment of CARE was completed. Personnel directly involved with the procedure wore the appropriate PPE (Personal Protective Equipment). No special equipment needed. Patient/Surrogate Stated/Verified: PATIENT VERIFIED(optional for EMERGENT procedures): Patient name, Date of , Relevant allergies, and The intended procedure Time Out Communication: Intended patient and procedure match the source documents. Consent documented and matches the intended procedure. Relevant labs, photos, and/or imaging studies have been reviewed. Correct side/site marked and visible. Medications required for procedure verified. No fire risk assessment and interventions applicable. Implant(s) inserted: Correct implant(s) confirmed including size and side. and Expiration date(s) reviewed. Sign Out: SIGN OUT (optional for EMERGENT procedures): All specimen containers correctly labeled. All instruments, equipment, possible retained foreign bodies accounted for. Post-procedure follow-up management communicated and Plan of Care Visit completed when applicable. The cervix was prepped with betadine. The uterus sounded to 8 cm and the uterus is Midposition.. Using sterile technique, the Mirena IUD was inserted without difficulty and the string was cut to 3cm from the external os of the cervix. Patient tolerated procedure well. PLAN: Patient was advised to observe for signs and symptoms of infection including but not limited to fever, malodorous vaginal discharge and/or pain. The patient was told to check the string monthly for accurate placement. Bleeding expectations were reviewed. Follow up for annual exam and IUD follow up in 4-8 weeks. Will complete pap smear at that time. Raya Taveras APRN.[facility] 01-05-2025 History of Presen t illness Narrative Maricruz presents today for IUD insertion for contraception. Patient's last menstrual period was 11/19/2024 (within days). GC/chlamydia: Last tested 2022, agreeable to testing today. test: negative Side effects including irregular bleeding were discussed with the patient. The patient understands that it should be removed in 8 years or sooner if the patient desires a . IUD source: office provided IUD lot #: [id number] Exp date: 02/16/2027 UNIVERSAL PROTOCOL / SAFETY CHECKLIST Procedure to be Performed: Intrauterine Device (IUD) insertion Mirena Sign In: A Moment of CARE was completed. Personnel directly involved with the procedure wore the appropriate PPE (Personal Protective Equipment). No special equipment needed. Patient/Surrogate Stated/Verified: PATIENT VERIFIED(optional for EMERGENT procedures): Patient name, Date of , Relevant allergies, and The intended procedure Time Out Communication: Intended patient and procedure match the source documents. Consent documented and matches the intended procedure. Relevant labs, photos, and/or imaging studies have been reviewed. Correct side/site marked and visible. Medications required for procedure verified. No fire risk assessment and interventions applicable. Implant(s) inserted: Correct implant(s) confirmed including size and side. and Expiration date(s) reviewed. Sign Out: SIGN OUT (optional for EMERGENT procedures): All specimen containers correctly labeled. All instruments, equipment, possible retained foreign bodies accounted for. Post-procedure follow-up management communicated and Plan of Care Visit completed when applicable. The cervix was prepped with betadine. The uterus sounded to 8 cm and the uterus is Midposition.. Using sterile technique, the Mirena IUD was inserted without difficulty and the string was cut to 3cm from the external os of the cervix. Patient tolerated procedure well. PLAN: Patient was advised to observe for signs and symptoms of infection including but not limited to fever, malodorous vaginal discharge and/or pain. The patient was told to check the string monthly for accurate placement. Bleeding expectations were reviewed. Follow up for annual exam and IUD follow up in 4-8 weeks. Will complete pap smear at that time. Raya Taveras APRN.CNM documented in this encounter [facility] 01-05-2025 Instructions Abran Mabry MA - 01/05/2025 1:20 PM EST POST IUD INSTRUCTIONS You may have irregular bleeding during the first 3 months of use. You may have mild-severe cramping for the next 48 hours. You may use over the counter medication (Motrin, Tylenol) as needed. Your IUD must be removed or replaced based on the following table: IUD Type Removed or replaced within: Tonya 3 years Kyleena 5 years Mirena 8 years Liletta 8 years Paragard 10 years Call the office for signs/symptoms of infection such as severe cramping, fever, or unusual bleeding. Check for string placement as instructed by your doctor. If you have any additional questions, please contact the office. documented in this encounter [facility] 01-05-2025 Telephone encounter Note 3rd attempt - LVM. [facility] 01-05-2025 Miscellaneous Notes 3rd attempt - LVM. 2Nd attempt made to call patient.. LVM. 1st attempt LVM to schedule sooner appt with cardiology (Ha had availability) Patient's cardiology consult that she had been waiting for with Dr. Tovar was cancelled and rescheduled with another physician in March. I would really like her to be seen by cardiology to see if they may be able to help with her BP management as well as give some insight to her passing out episodes. Is it possible to get her seen sooner than March? Kelsi Bermudez APRN.CNP documented in this encounter [facility] 01-01-2025 Telephone encounter Note 2Nd attempt made to call patient.. LVM. [facility] 12-30-2024 Telephone encounter Note 1st attempt LVM to schedule sooner appt with cardiology (Ha had availability) [facility] 12-26-2024 Telephone encounter Note Patient's cardiology consult that she had been waiting for with Dr. Tovar was cancelled and rescheduled with another physician in March. I would really like her to be seen by cardiology to see if they may be able to help with her BP management as well as give some insight to her passing out episodes. Is it possible to get her seen sooner than March? Kelsi Bermudez APRN.CNP [facility] 12-26-2024 Note HNO ID: [id number] Author: KELSI BERMUDEZ APRN.CNP Service: ? Author Type: Nurse Practitioner Type: Progress Notes Filed: 12/26/2024 09:47 Note Text: Chief Complaint Patient presents with: Follow Up: Hypertension HPI Maricruz Tejada is a 19 year old female who presents here today for Above Complaints. One week ago passed out while working-out, went home and rested. Reports headaches daily. Reports palpitations daily when she's up doing stuff. Denies blurry vision, edema. 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 Lisinopril 5mg daily tolerating well Metoprolol 100mg 1.5 tablet daily tolerating well Past medical history, appointments, medications, allergies reviewed. Previous Medical History PAST MEDICAL HISTORY Diagnosis Date Calculus of kidney Essential hypertension Migraine headache with aura PMDD (premenstrual dysphoric disorder) 2018 POTS (postural orthostatic tachycardia syndrome) borderline Rotator cuff dysfunction, right partial tear Syncope and collapse Tachycardia Previous Surgical History PAST SURGICAL HISTORY Procedure Laterality Date INSERTION OF IUD 10/24/2021 removed 09/14/2023 PAST SURGICAL HISTORY OF removal of renal calculi via lithotrypsy PAST SURGICAL HISTORY OF 06/24/2014 PCP of right thumb UNLISTED PROCEDURE LACRIMAL SYSTEM 02/18/2004 DR WHEELER Family History FAMILY HISTORY Problem Relation Age of Onset Hypertension Mother Started in mid-30's Hypertension Father No Known Problems Sister No Known Problems Brother Hypertension Maternal Grandmother Hypertension Maternal Grandfather Lipids Maternal Grandfather other (FIBROMYALGIA) Paternal Grandmother Patient Allergies ALLERGIES Allergen Reactions Codeine Tramadol Itching, Other: See Comments Dizziness Current Medications Current Outpatient Medications on File Prior to Visit Medication Sig tretinoin (RETIN-A) 0.025 % topical cream Mix 50/50 with moisturizer and apply to the affected areas of the face every night. Azelaic Acid 15 % gel Apply a thin layer to the full face once daily in the morning PARoxetine (PAXIL) 10 mg tablet Take 1 tablet by mouth once daily. metoprolol succinate ER (TOPROL XL) 100 mg Take 1.5 tablets by mouth once daily. norethindrone (AYGESTIN) 5 mg tablet Take 1 tablet by mouth once daily. galcanezumab-gnlm (EMGALITY PEN) 120 mg/mL pen Inject 2 pens (240 mg) under the skin 1 time only for initial loading dose. Refrigerate. Do not shake. galcanezumab-gnlm (EMGALITY PEN) 120 mg/mL pen Inject 1 mL subcutaneously once every month. Refrigerate. Do not shake. Patient should start on June 04, 2024. ubrogepant (UBRELVY) 100 mg tablet Take 1 tab at migraine onset. May repeat once in 2 hours as needed. DULoxetine (CYMBALTA) 60 mg capsule Take 1 capsule by mouth once daily. lisinopril (ZESTRIL) 5 mg tablet Take 1 tablet by mouth once daily. Cholecalciferol, Vitamin D3, 50 mcg (2,000 unit) cap Take 1 capsule by mouth once daily. [DISCONTINUED] Norethindrone Acet-Ethinyl Est (,) 1-20 mg-mcg per tablet Take 1 tablet by mouth once daily. No current facility-administered medications on file prior to visit. Social History Social History Tobacco Use Smoking status: Never Smokeless tobacco: Never Vaping Use Vaping status: Never Used Substance Use Topics Alcohol use: No Comment: rare Drug use: No Review of Symptoms REVIEW OF SYSTEMS See HPI, otherwise negative EXAM: BP 142/96 (BP Site: Left Arm, BP Position: Sitting, BP Cuff Size: Regular Adult) Pulse 91 Wt 68.5 kg (151 lb) LMP 11/19/2024 (Within Days) SpO2 98% BMI 26.75 kg/m? General Appearance: Well appearing, alert, in no acute distress, well-hydrated, well nourished.. Lungs: Lungs clear to auscultation. No wheezing, rhonchi, rales.. Heart: RRR without murmur, gallop, or rubs. No ectopy. Psychiatric: pleasant, cooperative. Health Maintenance List Asthma Action Plan Never done Asthma Control Test Never done Meningococcal B Vaccine: Consider Based On Risk(1 of 2 - Patient Seeks Protection) Never done Spirometry Never done Depression Screening Never done Anxiety Screening Never done Hepatitis C Screening Never done HIV Screening Never done BP Controlled (<130/80) Never done Cervical Cancer Screening Never done Covid-19 Vaccine(2023- season) Never done GC (Gonorrhea) Screening (18-24) due on 09/12/2024 Chlamydia Screening (18-24) due on 09/12/2024 DTaP,Tdap,Td Vaccine(7 - Td or Tdap) due on 09/22/2025 Annual PCP Team Chronic Disease Visit due on 11/25/2025 Hepatitis B Vaccine Completed HPV Vaccine Completed Influenza Vaccine Completed Data reviewed Previous records, office notes ASSESSMENT/PLAN: Increase her lisinopril from 10mg to 20mg daily Will see if we can get her in with cardiology sooner than May. - LISINOPRIL 20 MG TABLET Re (more content not included)... [facility] 12-26-2024 History of Presen t illness Narrative Chief Complaint Patient presents with: Follow Up: Hypertension HPI aMricruz Tejada is a 19 year old female who presents here today for Above Complaints. One week ago passed out while working-out, went home and rested. Reports headaches daily. Reports palpitations daily when she's up doing stuff. Denies blurry vision, edema. 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 Lisinopril 5mg daily tolerating well Metoprolol 100mg 1.5 tablet daily tolerating well Past medical history, appointments, medications, allergies reviewed. Previous Medical History PAST MEDICAL HISTORY Diagnosis Date Calculus of kidney Essential hypertension Migraine headache with aura PMDD (premenstrual dysphoric disorder) 2019 POTS (postural orthostatic tachycardia syndrome) borderline Rotator cuff dysfunction, right partial tear Syncope and collapse Tachycardia Previous Surgical History PAST SURGICAL HISTORY Procedure Laterality Date INSERTION OF IUD 10/24/2021 removed 09/14/2023 PAST SURGICAL HISTORY OF removal of renal calculi via lithotrypsy PAST SURGICAL HISTORY OF 06/24/2014 PCP of right thumb UNLISTED PROCEDURE LACRIMAL SYSTEM 02/18/2004 DR WHEELER Family History FAMILY HISTORY Problem Relation Age of Onset Hypertension Mother Started in mid-30's Hypertension Father No Known Problems Sister No Known Problems Brother Hypertension Maternal Grandmother Hypertension Maternal Grandfather Lipids Maternal Grandfather other (FIBROMYALGIA) Paternal Grandmother Patient Allergies ALLERGIES Allergen Reactions Codeine Tramadol Itching, Other: See Comments Dizziness Current Medications Current Outpatient Medications on File Prior to Visit Medication Sig tretinoin (RETIN-A) 0.025 % topical cream Mix 50/50 with moisturizer and apply to the affected areas of the face every night. Azelaic Acid 15 % gel Apply a thin layer to the full face once daily in the morning PARoxetine (PAXIL) 10 mg tablet Take 1 tablet by mouth once daily. metoprolol succinate ER (TOPROL XL) 100 mg Take 1.5 tablets by mouth once daily. norethindrone (AYGESTIN) 5 mg tablet Take 1 tablet by mouth once daily. galcanezumab-gnlm (EMGALITY PEN) 120 mg/mL pen Inject 2 pens (240 mg) under the skin 1 time only for initial loading dose. Refrigerate. Do not shake. galcanezumab-gnlm (EMGALITY PEN) 120 mg/mL pen Inject 1 mL subcutaneously once every month. Refrigerate. Do not shake. Patient should start on June 04, 2024. ubrogepant (UBRELVY) 100 mg tablet Take 1 tab at migraine onset. May repeat once in 2 hours as needed. DULoxetine (CYMBALTA) 60 mg capsule Take 1 capsule by mouth once daily. lisinopril (ZESTRIL) 5 mg tablet Take 1 tablet by mouth once daily. Cholecalciferol, Vitamin D3, 50 mcg (2,000 unit) cap Take 1 capsule by mouth once daily. [DISCONTINUED] Norethindrone Acet-Ethinyl Est (,) 1-20 mg-mcg per tablet Take 1 tablet by mouth once daily. No current facility-administered medications on file prior to visit. Social History Social History Tobacco Use Smoking status: Never Smokeless tobacco: Never Vaping Use Vaping status: Never Used Substance Use Topics Alcohol use: No Comment: rare Drug use: No Review of Symptoms REVIEW OF SYSTEMS See HPI, otherwise negative EXAM: BP 142/96 (BP Site: Left Arm, BP Position: Sitting, BP Cuff Size: Regular Adult) Pulse 91 Wt 68.5 kg (151 lb) LMP 11/19/2024 (Within Days) SpO2 98% BMI 26.75 kg/m General Appearance: Well appearing, alert, in no acute distress, well-hydrated, well nourished.. Lungs: Lungs clear to auscultation. No wheezing, rhonchi, rales.. Heart: RRR without murmur, gallop, or rubs. No ectopy. Psychiatric: pleasant, cooperative. Health Maintenance List Asthma Action Plan Never done Asthma Control Test Never done Meningococcal B Vaccine: Consider Based On Risk(1 of 2 - Patient Seeks Protection) Never done Spirometry Never done Depression Screening Never done Anxiety Screening Never done Hepatitis C Screening Never done HIV Screening Never done BP Controlled (<130/80) Never done Cervical Cancer Screening Never done Covid-19 Vaccine(2023- season) Never done GC (Gonorrhea) Screening (18-24) due on 09/12/2024 Chlamydia Screening (18-24) due on 09/12/2024 DTaP,Tdap,Td Vaccine(7 - Td or Tdap) due on 09/22/2025 Annual PCP Team Chronic Disease Visit due on 11/25/2025 Hepatitis B Vaccine Completed HPV Vaccine Completed Influenza Vaccine Completed Data reviewed Previous records, office notes ASSESSMENT/PLAN: Increase her lisinopril from 10mg to 20mg daily Will see if we can get her in with cardiology sooner than March. - LISINOPRIL 20 MG TABLET Kelsi Bermudez APRN.SENIOR ACCOUNT CLERK Attending Note I have personally performed a face to face assessment of the patient and have reviewed the ELISEO note and agree. Other additions or changes: As edited Signature: Kelsi Bermudez Date: 12/26/2024 Time: 9:46 AM documented in this encounter [facility] 12-23-2024 Telephone encounter Note [facility] 12-23-2024 Miscellaneous Notes Patient last seen on 04/23/24. documented in this encounter [facility] 12-22-2024 Note HNO ID: [id number] Author: NETO MCARTHUR MD Service: ? Author Type: Physician Type: Progress Notes Filed: 12/22/2024 09:05 Note Text: Chief Complaint: Right shoulder pain. Consulting Physician: Self History: Maricruz is a 19 year old female who presents with with a longstanding history of right shoulder pain. Patient reports that she injured her right shoulder while in high school. Patient reports that she fell directly on her right shoulder at that time. She never has had a dislocation or subluxation in the past. Patient then states that this past December she fell off her horse and had a injury occurred to her right shoulder at that time. Patient reports of pain along the anterior lateral aspect of her shoulder. The pain has worsened over the past few months. She reports pain along the anterior aspect of the shoulder without radiation. The pain is exacerbated with overhead activities such as throwing and lifting. The pain is worse with the arm in the abducted andcocked position while throwing. She reports decreased velocity and distance with throwing activities. The pain is typically dull but sharp at times. Popping and clicking are symptoms as well. No neck, elbow or wrist pain. She reports some night pain as well. No history of dislocation but the shoulder feels somewhat loose at times. No numbness or tingling of the extremity. No fever, chills, night sweats or other constitutional symptoms. She is right hand dominant. She quantitates the pain as 5/10. Review of Systems: GENERAL: Well developed, well nourished. No acute distress PAIN: Negative for pain, history of chronic pain or current treatment for chronic pain conditions CARDIOVASCULAR: Negative for chest pain, leg swelling and palpations. MSK: Negative for joint pain, swelling, back pain, muscle pain. SKIN: Negative for lesions, rash, itching, metal sensitivity NEURO: Negative for seizure, trauma, numbness/tingling of extremities. ENDOCRINE: Negative for Diabetes Type 1 and Type 2 HEMATOLOGY: Negative for excessive bleeding, clots, bleeding disorders. Physical Exam: Patient is alert, oriented and in no acute distress. Examination of the C-spine reveals no palpable tenderness. There is no atrophy or asymmetry and no muscle spasm. The cervical spine has normal range of motion. There is normal cervical lordosis. Examination of the shoulder reveals no atrophy and no soft tissue abnormality. Skin is intact. There is no pain with palpation along the AC or SC joints. There is some pain with palpation along the anterior aspect of the shoulder. The patient has 120 degrees of forward elevation actively and 175 degrees passively as compared to the other side. She has a positive impingement sign and positive Pascual test. Mild crepitation noted along the subacromial space with ROM. She has normal external rotation passively and actively as compared to the other side. Internal rotation is decreased to the back as compared to the other side. A negative empty can test is noted with good strength. Good strength is also noted with external rotation and she has a negative lift-off test. A negative cross body adduction test is noted. She has pain and some apprehension with the arm in ER/abduction. A positive relocation test is seen. She exhibits 2+ anterior load and shift test with a 1+ sulcus sign. A positive O?Oj?s test is noted. Some pain is noted with a Yergason?s and Speed?s test. She has full ROM of the both elbows and wrists. Good pulses and good cap refill noted. Gross sensation is intact. Reflexes are symmetric bilaterally. X-ray Evaluation: AP, Y-view, and axillary views of right shoulder were ordered, obtained, and reviewed today. No dislocation is noted. Joints spaces are well-maintained. No tumors and fractures noted. MRI examination without arthrogram reveals no evidence of rotator cuff or labral pathology. Glenohumeral joint is intact. No fractures noted. Assessment: Superior glenoid labrum lesion of right shoulder, initial encounter (primary encounter diagnosis) Plan: I had a discussion with the Maricruz regarding her shoulder pain. She likely has a superior labral lesion. Since the initial MRI scan was not done with dye I think at this point in time I do want to proceed with a MRI arthrogram. She does have signs symptoms consistent with labral pathology. I will see her back when she has had performed. She did undergo physical therapy without success. However I do want her to continue with her home exercise program. All of her questions were answered here today. I will see her back after the MRI scans obtained. Neto Mcarthur MD [facility] 12-22-2024 History of Presen t illness Narrative Chief Complaint: Right shoulder pain. Consulting Physician: Self History: Maricruz is a 19 year old female who presents with with a longstanding history of right shoulder pain. Patient reports that she injured her right shoulder while in high school. Patient reports that she fell directly on her right shoulder at that time. She never has had a dislocation or subluxation in the past. Patient then states that this past December she fell off her horse and had a injury occurred to her right shoulder at that time. Patient reports of pain along the anterior lateral aspect of her shoulder. The pain has worsened over the past few months. She reports pain along the anterior aspect of the shoulder without radiation. The pain is exacerbated with overhead activities such as throwing and lifting. The pain is worse with the arm in the abducted and cocked position while throwing. She reports decreased velocity and distance with throwing activities. The pain is typically dull but sharp at times. Popping and clicking are symptoms as well. No neck, elbow or wrist pain. She reports some night pain as well. No history of dislocation but the shoulder feels somewhat loose at times. No numbness or tingling of the extremity. No fever, chills, night sweats or other constitutional symptoms. She is right hand dominant. She quantitates the pain as 5/10. Review of Systems: GENERAL: Well developed, well nourished. No acute distress PAIN: Negative for pain, history of chronic pain or current treatment for chronic pain conditions CARDIOVASCULAR: Negative for chest pain, leg swelling and palpations. MSK: Negative for joint pain, swelling, back pain, muscle pain. SKIN: Negative for lesions, rash, itching, metal sensitivity NEURO: Negative for seizure, trauma, numbness/tingling of extremities. ENDOCRINE: Negative for Diabetes Type 1 and Type 2 HEMATOLOGY: Negative for excessive bleeding, clots, bleeding disorders. Physical Exam: Patient is alert, oriented and in no acute distress. Examination of the C-spine reveals no palpable tenderness. There is no atrophy or asymmetry and no muscle spasm. The cervical spine has normal range of motion. There is normal cervical lordosis. Examination of the shoulder reveals no atrophy and no soft tissue abnormality. Skin is intact. There is no pain with palpation along the AC or SC joints. There is some pain with palpation along the anterior aspect of the shoulder. The patient has 120 degrees of forward elevation actively and 175 degrees passively as compared to the other side. She has a positive impingement sign and positive Pascual test. Mild crepitation noted along the subacromial space with ROM. She has normal external rotation passively and actively as compared to the other side. Internal rotation is decreased to the back as compared to the other side. A negative empty can test is noted with good strength. Good strength is also noted with external rotation and she has a negative lift-off test. A negative cross body adduction test is noted. She has pain and some apprehension with the arm in ER/abduction. A positive relocation test is seen. She exhibits 2+ anterior load and shift test with a 1+ sulcus sign. A positive O Oj s test is noted. Some pain is noted with a Yergason s and Speed s test. She has full ROM of the both elbows and wrists. Good pulses and good cap refill noted. Gross sensation is intact. Reflexes are symmetric bilaterally. X-ray Evaluation: AP, Y-view, and axillary views of right shoulder were ordered, obtained, and reviewed today. No dislocation is noted. Joints spaces are well-maintained. No tumors and fractures noted. MRI examination without arthrogram reveals no evidence of rotator cuff or labral pathology. Glenohumeral joint is intact. No fractures noted. Assessment: Superior glenoid labrum lesion of right shoulder, initial encounter (primary encounter diagnosis) Plan: I had a discussion with the Maricruz regarding her shoulder pain. She likely has a superior labral lesion. Since the initial MRI scan was not done with dye I think at this point in time I do want to proceed with a MRI arthrogram. She does have signs symptoms consistent with labral pathology. I will see her back when she has had performed. She did undergo physical therapy without success. However I do want her to continue with her home exercise program. All of her questions were answered here today. I will see her back after the MRI scans obtained. Neto Mcarthur MD REVIEW OF SYSTEMS: GENERAL: Well developed, well nourished. No acute distress PAIN: Pain 2/10 CARDIOVASCULAR: Negative for chest pain, leg swelling and palpations. MSK: Negative for joint swelling SKIN: Negative for lesions, rash, itching, metal sensitivity NEURO: Numbness/tingling of extremties at times on right shoulder ENDOCRINE: Negative for diabetic associated symptoms HEMATOLOGY: Negative for excessive bleeding, clots, bleeding disorders. documented in this encounter [facility] 12-22-2024 Note HNO ID: [id number] Author: ALDO PRIETO MA Service: ? Author Type: Cable Way Operator Type: Progress Notes Filed: 12/22/2024 09:05 Note Text: REVIEW OF SYSTEMS: GENERAL: Well developed, well nourished. No acute distress PAIN: Pain 2/10 CARDIOVASCULAR: Negative for chest pain, leg swelling and palpations. MSK: Negative for joint swelling SKIN: Negative for lesions, rash, itching, metal sensitivity NEURO: Numbness/tingling of extremties at times on right shoulder ENDOCRINE: Negative for diabetic associated symptoms HEMATOLOGY: Negative for excessive bleeding, clots, bleeding disorders. [facility] 12-17-2024 Instructions Raya Taveras APRN.CNM - 12/17/2024 4:36 PM EST -Please check with your insurance on the coverage of Mirena IUD. -Call on first day of next period to schedule appointment for insertion of Mirena IUD. -You should also take 2 ibuprophen(Advil) 30minutes prior to appointment to decrease cramping. -Please review the entire booklet on Mirena IUD and feel free to call me with questions. documented in this encounter [facility] 12-17-2024 Note HNO ID: [id number] Author: RAYA TAVERAS APRN.CNM Service: ? Author Type: Belt Builder Helper Type: Progress Notes Filed: 12/17/2024 16:36 Note Text: Maricruz Tejada is a 19 year old female who presents for problem visit HPI: History of irregular menses and wanting to see if something will work better for her. History of insulin resistance with elevated insulin level, normal at this time with weight loss. No history of PCOS. Sexually active and using Aygestin for control. Menarche at age 10 or 11. Menses have always been irregular and has tried multiple types of control without success. Menses now will come once a month, twice a month or not at all. No skipped pills. 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 History Comments: Sexual Activity: Yes; Male Contraception: No contraception data on record PAST MEDICAL HISTORY Diagnosis Date Calculus of kidney Essential hypertension Migraine headache with aura PMDD (premenstrual dysphoric disorder) 2019 Rotator cuff dysfunction, right partial tear Syncope and collapse Tachycardia PAST SURGICAL HISTORY Procedure Laterality Date INSERTION OF IUD 10/24/2021 removed 09/14/2023 PAST SURGICAL HISTORY OF removal of renal calculi via lithotrypsy PAST SURGICAL HISTORY OF 06/24/2014 PCP of right thumb UNLISTED PROCEDURE LACRIMAL SYSTEM 02/18/2004 DR WHEELER FAMILY HISTORY Problem Relation Age of Onset Hypertension Mother Started in mid-30's Hypertension Father No Known Problems Sister No Known Problems Brother Hypertension Maternal Grandmother Hypertension Maternal Grandfather Lipids Maternal Grandfather other (FIBROMYALGIA) Paternal Grandmother Social History Tobacco Use Smoking status: Never Smokeless tobacco: Never Vaping Use Vaping status: Never Used Substance Use Topics Alcohol use: No Comment: rare Drug use: No Current Outpatient Medications Medication Sig tretinoin (RETIN-A) 0.025 % topical cream Mix 50/50 with moisturizer and apply to the affected areas of the face every night. Azelaic Acid 15 % gel Apply a thin layer to the full face once daily in the morning PARoxetine (PAXIL) 10 mg tablet Take 1 tablet by mouth once daily. metoprolol succinate ER (TOPROL XL) 100 mg Take 1.5 tablets by mouth once daily. norethindrone (AYGESTIN) 5 mg tablet Take 1 tablet by mouth once daily. galcanezumab-gnlm (EMGALITY PEN) 120 mg/mL pen Inject 2 pens (240 mg) under the skin 1 time only for initial loading dose. Refrigerate. Do not shake. galcanezumab-gnlm (EMGALITY PEN) 120 mg/mL pen Inject 1 mL subcutaneously once every month. Refrigerate. Do not shake. Patient should start on June 04, 2024. ubrogepant (UBRELVY) 100 mg tablet Take 1 tab at migraine onset. May repeat once in 2 hours as needed. DULoxetine (CYMBALTA) 60 mg capsule Take 1 capsule by mouth once daily. lisinopril (ZESTRIL) 5 mg tablet Take 1 tablet by mouth once daily. Cholecalciferol, Vitamin D3, 50 mcg (2,000 unit) cap Take 1 capsule by mouth once daily. No current facility-administered medications for this visit. Allergies As of Date: 12/17/2024 Allergen Noted Reaction CODEINE 07/03/2007 TRAMADOL 06/30/2014 Itching and Other: See Comments Fully Assessed 12/17/2024 REVIEW OF SYSTEMS Abdomen: No bloating, early satiety, indigestion, or increased flatulence. No abdominal pain, nausea, vomiting, diarrhea, or constipation. Bladder: No dysuria, gross hematuria, urinary frequency, urinary urgency, or incontinence. Breast: No breast lumps, nipple d/c, overlying skin changes, redness or skin retraction. Expanded ROS: N/A Allergies and current medication updated:Yes SENSITIVE EXAM: Sensitive exam not performed. EXAM: BP 144/90 Wt 154 lb (69.9kg) LMP 11/19/2024 GENERAL: pleasant, female in no apparent distress HEENT: Normocephalic and atraumatic NECK: Supple and full range of motion NEURO: alert and oriented x3,exam grossly non-focal EXTREMITIES: normal Indication Abnormal uterine bleeding Impression The uterus is retroflexed and measures 67 mm x 27 mm x 47 mm. The endometrial thickness is 2.1 mm. The right ovary measures 32 mm x 17 mm x 14 mm. The left ovary measures 33 mm x 15 mm x 12 mm. There is a small amount of free fluid visualized. Recommendations Normal pelvic ultrasound. Latest Ref Rng 11/25/2024 Color Yellow Yellow Clarity Clear Clear Glucose, Urine Negative Negative Bilirubin, Urine Negative Negative Ketones, Urine Negative Negative Specific [place], Ur 1.005 - 1.030 1.025 Hemoglobin/Blood,Ur Negative Negative pH, Urine <8.5 6.5 Protein, Urine Negative Trace ! Urobilinogen 0.2-1.0 EU/dL 0.2 EU/dL Nitrites Negative Negative Leukest Negative Tr (more content not included)... [facility] 12-17-2024 History of Presen t illness Narrative Maricruz Tejada is a 19 year old female who presents for problem visit HPI: History of irregular menses and wanting to see if something will work better for her. History of insulin resistance with elevated insulin level, normal at this time with weight loss. No history of PCOS. Sexually active and using Aygestin for control. Menarche at age 10 or 11. Menses have always been irregular and has tried multiple types of control without success. Menses now will come once a month, twice a month or not at all. No skipped pills. 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 History Comments: Sexual Activity: Yes; Male Contraception: No contraception data on record PAST MEDICAL HISTORY Diagnosis Date Calculus of kidney Essential hypertension Migraine headache with aura PMDD (premenstrual dysphoric disorder) 2019 Rotator cuff dysfunction, right partial tear Syncope and collapse Tachycardia PAST SURGICAL HISTORY Procedure Laterality Date INSERTION OF IUD 10/24/2021 removed 09/14/2023 PAST SURGICAL HISTORY OF removal of renal calculi via lithotrypsy PAST SURGICAL HISTORY OF 06/24/2014 PCP of right thumb UNLISTED PROCEDURE LACRIMAL SYSTEM 02/18/2004 DR WHEELER FAMILY HISTORY Problem Relation Age of Onset Hypertension Mother Started in mid-30's Hypertension Father No Known Problems Sister No Known Problems Brother Hypertension Maternal Grandmother Hypertension Maternal Grandfather Lipids Maternal Grandfather other (FIBROMYALGIA) Paternal Grandmother Social History Tobacco Use Smoking status: Never Smokeless tobacco: Never Vaping Use Vaping status: Never Used Substance Use Topics Alcohol use: No Comment: rare Drug use: No Current Outpatient Medications Medication Sig tretinoin (RETIN-A) 0.025 % topical cream Mix 50/50 with moisturizer and apply to the affected areas of the face every night. Azelaic Acid 15 % gel Apply a thin layer to the full face once daily in the morning PARoxetine (PAXIL) 10 mg tablet Take 1 tablet by mouth once daily. metoprolol succinate ER (TOPROL XL) 100 mg Take 1.5 tablets by mouth once daily. norethindrone (AYGESTIN) 5 mg tablet Take 1 tablet by mouth once daily. galcanezumab-gnlm (EMGALITY PEN) 120 mg/mL pen Inject 2 pens (240 mg) under the skin 1 time only for initial loading dose. Refrigerate. Do not shake. galcanezumab-gnlm (EMGALITY PEN) 120 mg/mL pen Inject 1 mL subcutaneously once every month. Refrigerate. Do not shake. Patient should start on June 04, 2024. ubrogepant (UBRELVY) 100 mg tablet Take 1 tab at migraine onset. May repeat once in 2 hours as needed. DULoxetine (CYMBALTA) 60 mg capsule Take 1 capsule by mouth once daily. lisinopril (ZESTRIL) 5 mg tablet Take 1 tablet by mouth once daily. Cholecalciferol, Vitamin D3, 50 mcg (2,000 unit) cap Take 1 capsule by mouth once daily. No current facility-administered medications for this visit. Allergies As of Date: 12/17/2024 Allergen Noted Reaction CODEINE 07/03/2007 TRAMADOL 06/30/2014 Itching and Other: See Comments Fully Assessed 12/17/2024 REVIEW OF SYSTEMS Abdomen: No bloating, early satiety, indigestion, or increased flatulence. No abdominal pain, nausea, vomiting, diarrhea, or constipation. Bladder: No dysuria, gross hematuria, urinary frequency, urinary urgency, or incontinence. Breast: No breast lumps, nipple d/c, overlying skin changes, redness or skin retraction. Expanded ROS: N/A Allergies and current medication updated:Yes SENSITIVE EXAM: Sensitive exam not performed. EXAM: BP 144/90 Wt 154 lb (69.9kg) LMP 11/19/2024 GENERAL: pleasant, female in no apparent distress HEENT: Normocephalic and atraumatic NECK: Supple and full range of motion NEURO: alert and oriented x3,exam grossly non-focal EXTREMITIES: normal Indication Abnormal uterine bleeding Impression The uterus is retroflexed and measures 67 mm x 27 mm x 47 mm. The endometrial thickness is 2.1 mm. The right ovary measures 32 mm x 17 mm x 14 mm. The left ovary measures 33 mm x 15 mm x 12 mm. There is a small amount of free fluid visualized. Recommendations Normal pelvic ultrasound. Latest Ref Rng 11/25/2024 Color Yellow Yellow Clarity Clear Clear Glucose, Urine Negative Negative Bilirubin, Urine Negative Negative Ketones, Urine Negative Negative Specific [place], Ur 1.005 - 1.030 1.025 Hemoglobin/Blood,Ur Negative Negative pH, Urine <8.5 6.5 Protein, Urine Negative Trace ! Urobilinogen 0.2-1.0 EU/dL 0.2 EU/dL Nitrites Negative Negative Leukest Negative Trace ! WBC, Urine 0-5 /HPF 0-5 /HPF RBC, Urine 0-2 /HPF 0-2 /HPF Bacteria Negative /HPF Negative Epithelial Cells /HPF None Seen Hyaline Cast 0 /LPF 0 /LPF Protein, Total 6.3 - 8.0 g/dL 7.7 Albumin 3.9 - 4.9 g/dL 4.9 Calcium 8.5 - 10.2 mg/dL 9.8 Bilirubin, Total 0.2 - 1.3 mg/dL 0.4 Alkaline Phosphatase 34 - 123 U/L 72 AST 13 - 35 U/L 22 ALT 7 - 38 U/L 20 Glucose 74 - 99 mg/dL 90 BUN 7 - 21 mg/dL 15 Creatinine 0.58 - 0.96 mg/dL 0.73 Sodium 136 - 144 mmol/L 139 Potassium 3.7 - 5.1 mmol/L 4.0 Chloride 98 - 107 mmol/L 104 CO2 22 - 30 mmol/L 23 Anion Gap 8 - 15 mmol/L 12 eGFR >=60 mL/min/1.73m 120 WBC 3.70 - 11.00 k/uL 5.49 RBC 3.90 - 5.20 m/uL 4.64 Hemoglobin 11.5 - 15.5 g/dL 13.5 Hematocrit 36.0 - 46.0 % 40.8 MCV 80.0 - 100.0 fL 87.9 MCH 26.0 - 34.0 pg 29.1 MCHC 30.5 - 36.0 g/dL 33.1 RDW-CV 11.5 - 15.0 % 11.6 Platelet Count 150 - 400 k/uL 235 MPV 9.0 - 12.7 fL 10.0 Absolute nRBC <0.01 k/uL <0.01 Iron 41 - 186 ug/dL 83 TIBC 232 - 386 ug/dL 370 Transferrin Saturation 15.0 - 57.0 % 22.4 Testosterone, Total, S 10.0 - 55.0 ng/dL 19.1 Testosterone, Free, S 0.10 - 0.85 ng/dL 0.49 Testosterone, % Free, S 0.50 - 2.80 % 2.57 Hemoglobin A1C 4.3 - 5.6 % 4.8 Estimated Average Glucose mg/dL 91 Insulin 3.0 - 25.0 mU/L 9.7 Ferritin 14.7 - 205.1 ng/mL 35.6 Prolactin 4.4 - 33.8 ng/mL 14.3 Hydroxyprogesterone <=206.00 ng/dL 17.36 TSH 0.270 - 4.200 mIU/L 1.720 T3 79 - 165 ng/dL 110 Free T4 0.9 - 1.7 ng/dL 1.1 DHEA-S 148.0 - 407.0 ug/dL 298.4 Legend: ! Abnormal ASSESSMENT AND PLAN: 1. Abnormal menstrual cycle - ICD9: 626.9, ICD10: N92.6 (primary diagnosis) 2. Insulin resistance - ICD9: 277.7, ICD10: E88.819 -History of insulin resistance but insulin level normal at this time 3. control counseling - ICD9: V25.09, ICD10: Z30.09 - INSERT INTRAUTERINE DEVICE -Reviewed progestin only options or referral to complex family planning clinic given the multiple control options she has tried at this time. She would like to try Mirena IUD. Reviewed risks, benefits, MOA, and insertion. 4. Breakthrough bleeding on control pills - ICD9: 626.6, ICD10: N92.1 - VON [facility] DX PNL (LIMITED) discussed since she has always had irregular heavy bleeding will order testing Raya Taveras APRN.CNM documented in this encounter [facility] 12-10-2024 Note HNO ID: [id number] Author: FEDERICO MONROY DO Service: ? Author Type: Physician Type: Progress Notes Filed: 12/10/2024 14:40 Note Text: SERVICE DATE: December 10, 2024 PCP: Celso Freire DO Subjective Patient ID: Maricruz is a 19 year old female. Chief Complaint: Patient presents with: 14 weeks 5 days post visit right shoulder : rotator cuff disorder PAIN EVALUATION 12/10/2024 1427 Pain Level: 6 Pain Location: Shoulder-Right Description: Sharp;Throbbing Duration Amount of Time: -- Ongoing Frequency: Continuous Intervention/Comfort measure: Medication HPI Patient presents today for follow-up of right shoulder pain. Completed physical therapy as ordered. She does not feel like she has any significant improvement to completing PT. She also received a cortisone injection 14 weeks ago which she states really did not help that much overall with symptoms. Continues to have pain in the shoulder posterior lateral aspect, worse with any kind of activities involving overhead lifting or arm extension. Review of Systems ACTIVE PROBLEM LIST Leander's Fracture of Base of Metacarpal of Right Thumb Exercise-Induced Asthma Hearing Difficulty of Left Ear Acute Pharyngitis, Unspecified Animal-Manan Injured By Fall From Or Being Thrown From Horse in Noncollision Accident, Initial Encounter Abdominal Contusion Concussion With Brief (Less Than One Hour) Loss of Consciousness Derangement of Right Knee Knee Injury Sore Throat Strain of Neck Muscle Strain of Right Rotator Cuff Capsule Autonomic Dysfunction Hypertension, Essential Cervicalgia Migraine Without Aura and Without Status Migrainosus, Not Intractable Intractable Chronic Migraine Without Aura and Without Status Migrainosus Disorder of Right Rotator Cuff PAST MEDICAL HISTORY Diagnosis Date Calculus of kidney Migraine headache with aura PMDD (premenstrual dysphoric disorder) 2019 Syncope and collapse PAST SURGICAL HISTORY Procedure Laterality Date INSERTION OF IUD 10/24/2021 removed 09/14/2023 PAST SURGICAL HISTORY OF removal of renal calculi via lithotrypsy PAST SURGICAL HISTORY OF 06/24/2014 PCP of right thumb UNLISTED PROCEDURE LACRIMAL SYSTEM 02/18/2004 DR WHEELER FAMILY HISTORY Problem Relation Age of Onset Hypertension Mother Started in mid-30's Hypertension Father No Known Problems Sister No Known Problems Brother Hypertension Maternal Grandmother Hypertension Maternal Grandfather Lipids Maternal Grandfather other (FIBROMYALGIA) Paternal Grandmother Social History Tobacco Use Smoking status: Never Smokeless tobacco: Never Vaping Use Vaping status: Never Used Substance Use Topics Alcohol use: No Comment: rare Drug use: No ALLERGIES Allergen Reactions Codeine Tramadol Itching, Other: See Comments Dizziness MEDICATIONS: PARoxetine (PAXIL) 10 mg tablet Take 1 tablet by mouth once daily. metoprolol succinate ER (TOPROL XL) 100 mg Take 1.5 tablets by mouth once daily. norethindrone (AYGESTIN) 5 mg tablet Take 1 tablet by mouth once daily. galcanezumab-gnlm (EMGALITY PEN) 120 mg/mL pen Inject 2 pens (240 mg) under the skin 1 time only for initial loading dose. Refrigerate. Do not shake. ubrogepant (UBRELVY) 100 mg tablet Take 1 tab at migraine onset. May repeat once in 2 hours as needed. DULoxetine (CYMBALTA) 60 mg capsule Take 1 capsule by mouth once daily. lisinopril (ZESTRIL) 5 mg tablet Take 1 tablet by mouth once daily. Cholecalciferol, Vitamin D3, 50 mcg (2,000 unit) cap Take 1 capsule by mouth once daily. galcanezumab-gnlm (EMGALITY PEN) 120 mg/mL pen Inject 1 mL subcutaneously once every month. Refrigerate. Do not shake. Patient should start on June 04, 2024. [DISCONTINUED] Norethindrone Acet-Ethinyl Est (,) 1-20 mg-mcg per tablet Take 1 tablet by mouth once daily. Allergies, medications, past surgical history, family history and past medical history were reviewed per this encounter. Objective Ortho Exam 19-year-old female pleasant cooperative with exam no acute distress. Valuation of the right shoulder shows motion restriction with abduction external rotation. Upper arm test is positive for pain. Empty can sign is positive. Pascual maneuver is positive for pain. Rotator cuff strength is 4 out of 5 on the right Reviewed MRI results with patient which shows tendinosis of the supraspinatus and small tendon fraying with low-grade partial tear as well as subdeltoid bursitis. Assessment/Plan ASSESSMENT Diagnosis (M67.911) Rotator cuff disorder, right (primary encounter diagnosis) No orders found for this visit on 12/10/24. PLAN Mraicruz has not improved with conservative therapy including corticosteroid injection, medication, physical therapy. Recommend referral for surgical consultation- Dr. Gregg FOLLOW-UP: No follow-ups on file. SIGNATURE: Federico Monroy DO PATIENT NAME: Maricruz Haynes (more content not included)... [facility] 12-10-2024 History of Presen t illness Narrative Images from the original note were not included. SERVICE DATE: December 10, 2024 PCP: Celso Freire DO Subjective Patient ID: Maricruz is a 19 year old female. Chief Complaint: Patient presents with: 14 weeks 5 days post visit right shoulder : rotator cuff disorder PAIN EVALUATION 12/10/2024 1427 Pain Level: 6 Pain Location: Shoulder-Right Description: Sharp;Throbbing Duration Amount of Time: -- Ongoing Frequency: Continuous Intervention/Comfort measure: Medication HPI Patient presents today for follow-up of right shoulder pain. Completed physical therapy as ordered. She does not feel like she has any significant improvement to completing PT. She also received a cortisone injection 14 weeks ago which she states really did not help that much overall with symptoms. Continues to have pain in the shoulder posterior lateral aspect, worse with any kind of activities involving overhead lifting or arm extension. Review of Systems ACTIVE PROBLEM LIST Leander's Fracture of Base of Metacarpal of Right Thumb Exercise-Induced Asthma Hearing Difficulty of Left Ear Acute Pharyngitis, Unspecified Animal-Manan Injured By Fall From Or Being Thrown From Horse in Noncollision Accident, Initial Encounter Abdominal Contusion Concussion With Brief (Less Than One Hour) Loss of Consciousness Derangement of Right Knee Knee Injury Sore Throat Strain of Neck Muscle Strain of Right Rotator Cuff Capsule Autonomic Dysfunction Hypertension, Essential Cervicalgia Migraine Without Aura and Without Status Migrainosus, Not Intractable Intractable Chronic Migraine Without Aura and Without Status Migrainosus Disorder of Right Rotator Cuff PAST MEDICAL HISTORY Diagnosis Date Calculus of kidney Migraine headache with aura PMDD (premenstrual dysphoric disorder) 2019 Syncope and collapse PAST SURGICAL HISTORY Procedure Laterality Date INSERTION OF IUD 10/24/2021 removed 09/14/2023 PAST SURGICAL HISTORY OF removal of renal calculi via lithotrypsy PAST SURGICAL HISTORY OF 06/24/2014 PCP of right thumb UNLISTED PROCEDURE LACRIMAL SYSTEM 02/18/2004 DR WHEELER FAMILY HISTORY Problem Relation Age of Onset Hypertension Mother Started in mid-30's Hypertension Father No Known Problems Sister No Known Problems Brother Hypertension Maternal Grandmother Hypertension Maternal Grandfather Lipids Maternal Grandfather other (FIBROMYALGIA) Paternal Grandmother Social History Tobacco Use Smoking status: Never Smokeless tobacco: Never Vaping Use Vaping status: Never Used Substance Use Topics Alcohol use: No Comment: rare Drug use: No ALLERGIES Allergen Reactions Codeine Tramadol Itching, Other: See Comments Dizziness MEDICATIONS: PARoxetine (PAXIL) 10 mg tablet Take 1 tablet by mouth once daily. metoprolol succinate ER (TOPROL XL) 100 mg Take 1.5 tablets by mouth once daily. norethindrone (AYGESTIN) 5 mg tablet Take 1 tablet by mouth once daily. galcanezumab-gnlm (EMGALITY PEN) 120 mg/mL pen Inject 2 pens (240 mg) under the skin 1 time only for initial loading dose. Refrigerate. Do not shake. ubrogepant (UBRELVY) 100 mg tablet Take 1 tab at migraine onset. May repeat once in 2 hours as needed. DULoxetine (CYMBALTA) 60 mg capsule Take 1 capsule by mouth once daily. lisinopril (ZESTRIL) 5 mg tablet Take 1 tablet by mouth once daily. Cholecalciferol, Vitamin D3, 50 mcg (2,000 unit) cap Take 1 capsule by mouth once daily. galcanezumab-gnlm (EMGALITY PEN) 120 mg/mL pen Inject 1 mL subcutaneously once every month. Refrigerate. Do not shake. Patient should start on June 04, 2024. [DISCONTINUED] Norethindrone Acet-Ethinyl Est (,) 1-20 mg-mcg per tablet Take 1 tablet by mouth once daily. Allergies, medications, past surgical history, family history and past medical history were reviewed per this encounter. Objective Ortho Exam 19-year-old female pleasant cooperative with exam no acute distress. Valuation of the right shoulder shows motion restriction with abduction external rotation. Upper arm test is positive for pain. Empty can sign is positive. Pascual maneuver is positive for pain. Rotator cuff strength is 4 out of 5 on the right Reviewed MRI results with patient which shows tendinosis of the supraspinatus and small tendon fraying with low-grade partial tear as well as subdeltoid bursitis. Assessment/Plan ASSESSMENT Diagnosis (M67.911) Rotator cuff disorder, right (primary encounter diagnosis) No orders found for this visit on 12/10/24. PLAN Maricruz has not improved with conservative therapy including corticosteroid injection, medication, physical therapy. Recommend referral for surgical consultation- Dr. Gregg FOLLOW-UP: No follow-ups on file. SIGNATURE: Federico Monroy DO PATIENT NAME: Maricruz Tejada DATE: December 10, 2024 TIME: 2:37 PM Patient presents with: 14 weeks 5 days post visit right shoulder : rotator cuff disorder AMB ROOMING INTAKE FLOWSHEET DATA Risk Screening Do you have concerns about personal safety or safety in the home?: No Pain Pain Level: 6 Pain Location: Shoulder-Right Description: Sharp, Throbbing Duration Amount of Time: (Ongoing) Frequency: Continuous Intervention/Comfort measure: Medication Patient has completed PT. Continuing to have pain. Cortisone injection did not help. Taking Advil as needed for the pain and does not help. documented in this encounter [facility] 12-10-2024 Note HNO ID: [id number] Author: DINORAH MERCEDES MA Service: ? Author Type: Cable Way Operator Type: Progress Notes Filed: 12/10/2024 14:40 Note Text: Patient presents with: 14 weeks 5 days post visit right shoulder : rotator cuff disorder AMB ROOMING INTAKE FLOWSHEET DATA Risk Screening Do you have concerns about personal safety or safety in the home?: No Pain Pain Level: 6 Pain Location: Shoulder-Right Description: Sharp, Throbbing Duration Amount of Time: (Ongoing) Frequency: Continuous Intervention/Comfort measure: Medication Patient has completed PT. Continuing to have pain. Cortisone injection did not help. Taking Advil as needed for the pain and does not help. [facility] 12-04-2024 Telephone encounter Note 1st attempt left message to return call to schedule consult to [facility] 12-04-2024 Miscellaneous Notes 1st attempt left message to return call to schedule consult to [facility] Please schedule pt with [facility] [employer] Naomy Rivers MA Please place consult to professor of nursing Naomy Rivers MA Please let her know that I was able to speak with Raya Taveras and she is willing to see her. Please assist her to schedule this appt. Kelsi Bermudez APRN.CNP documented in this encounter [facility] 12-04-2024 Telephone encounter Note Please schedule pt with [employer] [employer] Naomy Rivers MA [facility] 12-03-2024 Telephone encounter Note Please place consult to professor of nursing Naomy Rivers MA [facility] 12-03-2024 Telephone encounter Note Please let her know that I was able to speak with Raya Taveras and she is willing to see her. Please assist her to schedule this appt. Kelsi Bermudez APRN.CNP [facility] 12-02-2024 Note HNO ID: [id number] Author: KRISTEL LEONARD MD Service: ? Author Type: Physician Type: Progress Notes Filed: 12/02/2024 20:54 Note Text: The patient presents for requested ultrasound. Full report available in the Imaging tab in [employer]. Kristel Leonard MD [facility] 12-02-2024 History of Presen t illness Narrative The patient presents for requested ultrasound. Full report available in the Imaging tab in [employer]. Kristel Leonard MD documented in this encounter [facility] 12-02-2024 Telephone encounter Note Patient last seen on 04/23/24. [facility] 11-27-2024 Note HNO ID: [id number] Author: RAYA AMBRIZ, PT Service: ? Author Type: Physical Therapist Type: Progress Notes Filed: 11/27/2024 09:45 Note Text: Episode Visit Count: 5 Therapist That Will Accept/Oversee The Plan Of Care: Raya Ambriz Start of Care Date: 09/02/24 Onset Date: 09/02/22 Plan of Care Certification Date: 11/27/24 Next Certification Due Date: 11/27/24 REHABILITATION AND SPORTS THERAPY PHYSICAL THERAPY DISCONTINUANCE OF CARE PLAN OF CARE UPDATE: Assessment: Maricruz Tejada is discontinued from Physical Therapy services due to Patient/Client declining further intervention.. Patient was seen for 5 visits from Start of Care Date: 09/02/24 to 11/27/2024 and treatment included: Therapeutic exercise and Self-nursing home management. Goals for Episode of Care: established 09/02/24 Goals updated on 10/01/2024. Goals updated on 11/27/2024. Spencer in home exercise program. -- MET Patient will decrease pain to 1-2/10 with functional activities to allow patient to improve tolerance for ADLs. -- PROGRESSING, 8/10 with reaching overhead to braid the hair Patient will increase active ROM of right shoulder abduction to 160 degrees or greater without increased symptoms to allow pt to to improve postural alignment and to improve performance of ADLs. -- NOT MET Patient will increase flexibility of R UT and levator scapulae to WNL to improve ability to maintain proper posture, improve mechanics, and decrease pain. -- NOT MET Perform reaching behind the back and overhead with decreased report of symptoms/pain in 6 weeks. -- NOT MET Improve postural awareness. -- NOT MET Patient Goals: reduce R shoulder pain -- NOT MET SUBJECTIVE: Pt. last PT visit was 10/01/24. Pt. has not been doing her HEP and reports no improvement since last visit. Wants to see physician for another cortisone shot. Injection helpful the first time, pt. reports it didn't work the second time.. Patient Goals: reduce R shoulder pain Functional Limitations: lifting, reaching behind back, reaching overhead, use hand with arm at shoulder level, working Pain: Pain Pain Level: 8 Pain Location: Shoulder - Right Description: Aching Frequency: With movement Post Treatment Pain Post Treatment Pain Level: No Change Post Treatment Pain Location: Shoulder - Right PROMIS Scales 09/02/2024 Higher is Better Phys Func - Score 51 (within normal limits) Phys Func - Percentile 54 Self-Eff Symptom - Score 54 (Average) Self-Eff Symptom - Percentile 66 T-scores: mean of general population = 50. 5 points is clinically meaningfully difference Percentiles provide an indication of how the patient's score ranks in relation to the general population. Higher percentile rankings indicate better function/quality of life. 50th percentile is the average of the general population and indicates half of respondents had a worse score. OBJECTIVE MEASURES WITH LEVEL OF FUNCTION: Cervical Spine ROM Cervical Protrusion AROM: Normal Cervical Retraction AROM: Normal Cervical Flexion AROM: Normal Cervical Extension AROM: Normal Cervical Side-Bend Right AROM: Normal Cervical Side-Bend Left AROM: Moderate limitation (tightness without shoulder pain) Cervical Rotation Right AROM: Normal Cervical Rotation Left AROM: Normal UE PROM R Shoulder Flex: 122 Degrees R Shoulder ABduction: 72 Degrees UE Flexibility R Upper Trapezius Flexibilty Comments: limited R Levator Scapulae Flexibilty Comments: limited R Pectorals Comments: limited UE and Cervical Strength R UE Strength: NT due to pain TREATMENT: Therapeutic Exercise: 1: scapular retraction 2x20 2: scapular circles 2x20 fwd and rev 3: cervical retraction, protraction, flexion, extension, SB each side, rotation each side 1x each 4: UT stretch 3x30 sec R 5: levator scapulae stretch 3x30 sec R 6: pectoralis stretch major and minor 1x30 sec each Skilled Intervention: Skilled judgment was used in selection of appropriate interventions. Correct performance of therapeutic exercises was facilitated with verbal, visual, and tactile cuing. Educated patient on rationale for performing exercises in regards to decreasing fatigue , increase ease of ADL, and ROM and function . Patient education as noted. Self-Senior Living Management: Skilled Intervention: Skilled judgment in the selection of proper modification for activity of daily living/home management based on clinical presentation, deficits, and needs. Provided written instruction for activities of daily living techniques to facilitate proper performance and compliance. Reviewed patient specific diagnosis in relation to activities of daily living/home management. Activity progression based on professional judgement. Maximum verbal cues for maintaining neutral spine alignment. Provided written instruction for home program to facilitate proper performance and compliance. Correct performance (more content not included)... [facility] 11-27-2024 History of Presen t illness Narrative Episode Visit Count: 5 Therapist That Will Accept/Oversee The Plan Of Care: Raya Ambriz Start of Care Date: 09/02/24 Onset Date: 09/02/22 Plan of Care Certification Date: 11/27/24 Next Certification Due Date: 11/27/24 REHABILITATION AND SPORTS THERAPY PHYSICAL THERAPY DISCONTINUANCE OF CARE PLAN OF CARE UPDATE: Assessment: Maricruz Tejada is discontinued from Physical Therapy services due to Patient/Client declining further intervention.. Patient was seen for 5 visits from Start of Care Date: 09/02/24 to 11/27/2024 and treatment included: Therapeutic exercise and Self-nursing home management. Goals for Episode of Care: established 09/02/24 Goals updated on 10/01/2024. Goals updated on 11/27/2024. Spencer in home exercise program. -- MET Patient will decrease pain to 1-2/10 with functional activities to allow patient to improve tolerance for ADLs. -- PROGRESSING, 8/10 with reaching overhead to braid the hair Patient will increase active ROM of right shoulder abduction to 160 degrees or greater without increased symptoms to allow pt to to improve postural alignment and to improve performance of ADLs. -- NOT MET Patient will increase flexibility of R UT and levator scapulae to WNL to improve ability to maintain proper posture, improve mechanics, and decrease pain. -- NOT MET Perform reaching behind the back and overhead with decreased report of symptoms/pain in 6 weeks. -- NOT MET Improve postural awareness. -- NOT MET Patient Goals: reduce R shoulder pain -- NOT MET SUBJECTIVE: Pt. last PT visit was 10/01/24. Pt. has not been doing her HEP and reports no improvement since last visit. Wants to see physician for another cortisone shot. Injection helpful the first time, pt. reports it didn't work the second time.. Patient Goals: reduce R shoulder pain Functional Limitations: lifting, reaching behind back, reaching overhead, use hand with arm at shoulder level, working Pain: Pain Pain Level: 8 Pain Location: Shoulder - Right Description: Aching Frequency: With movement Post Treatment Pain Post Treatment Pain Level: No Change Post Treatment Pain Location: Shoulder - Right PROMIS Scales 09/02/2024 Higher is Better Phys Func - Score 51 (within normal limits) Phys Func - Percentile 54 Self-Eff Symptom - Score 54 (Average) Self-Eff Symptom - Percentile 66 T-scores: mean of general population = 50. 5 points is clinically meaningfully difference Percentiles provide an indication of how the patient's score ranks in relation to the general population. Higher percentile rankings indicate better function/quality of life. 50th percentile is the average of the general population and indicates half of respondents had a worse score. OBJECTIVE MEASURES WITH LEVEL OF FUNCTION: Cervical Spine ROM Cervical Protrusion AROM: Normal Cervical Retraction AROM: Normal Cervical Flexion AROM: Normal Cervical Extension AROM: Normal Cervical Side-Bend Right AROM: Normal Cervical Side-Bend Left AROM: Moderate limitation (tightness without shoulder pain) Cervical Rotation Right AROM: Normal Cervical Rotation Left AROM: Normal UE PROM R Shoulder Flex: 122 Degrees R Shoulder ABduction: 72 Degrees UE Flexibility R Upper Trapezius Flexibilty Comments: limited R Levator Scapulae Flexibilty Comments: limited R Pectorals Comments: limited UE and Cervical Strength R UE Strength: NT due to pain TREATMENT: Therapeutic Exercise: 1: scapular retraction 2x20 2: scapular circles 2x20 fwd and rev 3: cervical retraction, protraction, flexion, extension, SB each side, rotation each side 1x each 4: UT stretch 3x30 sec R 5: levator scapulae stretch 3x30 sec R 6: pectoralis stretch major and minor 1x30 sec each Skilled Intervention: Skilled judgment was used in selection of appropriate interventions. Correct performance of therapeutic exercises was facilitated with verbal, visual, and tactile cuing. Educated patient on rationale for performing exercises in regards to decreasing fatigue , increase ease of ADL, and ROM and function . Patient education as noted. Self-Senior Living Management: Skilled Intervention: Skilled judgment in the selection of proper modification for activity of daily living/home management based on clinical presentation, deficits, and needs. Provided written instruction for activities of daily living techniques to facilitate proper performance and compliance. Reviewed patient specific diagnosis in relation to activities of daily living/home management. Activity progression based on professional judgement. Maximum verbal cues for maintaining neutral spine alignment. Provided written instruction for home program to facilitate proper performance and compliance. Correct performance of home program was facilitated with verbal, visual, and tactile cueing. Billing Skilled Treatment Time Minutes (timed and untimed codes): 24 Total Session Time (minutes): 24 Session Start Time : 925 Session Stop Time : 949 Raya Ambriz PT documented in this encounter [facility] 11-26-2024 Telephone encounter Note Patient returned call. Appointment moved to 12/02. Maritza Ching RN [facility] 11-26-2024 Miscellaneous Notes Patient returned call. Appointment moved to 12/02. Maritza Ching RN Left message for patient to call office. Patient has a pelvic US scheduled for tomorrow, 11/27 @ 0800. Need to move to a different day (need to add an early OB). Please offer patient another day or a sooner day in Radiology if she prefers. Would need a radiology order if she chooses this option. Maritza Ching RN documented in this encounter [facility] 11-26-2024 Telephone encounter Note Left message for patient to call office. Patient has a pelvic US scheduled for tomorrow, 11/27 @ 0800. Need to move to a different day (need to add an early OB). Please offer patient another day or a sooner day in Radiology if she prefers. Would need a radiology order if she chooses this option. Maritza Ching RN [facility] 11-25-2024 Note HNO ID: [id number] Author: KELSI BERMUDEZ APRN.SENIOR ACCOUNT CLERK Service: ? Author Type: Nurse Practitioner Type: Progress Notes Filed: 11/25/2024 16:15 Note Text: Chief Complaint Patient presents with: BP Check HPI Maricruz Tejada is a 19 year old female who presents here today for Above Complaints. BP-does not check at home-accidentally put it in a storage unit because planning to move. Can tell her BP is elevated-feels off and headache. Denies CP or SOB. Occasional palpitations-this does cause a little SOB-infrequent and no more than 5 minutes or so. Anxiety/depression is under control-is the best it has been in a long time-Cymbalta and Prozac. Much less heart racing. Has never had a regular period in her life. Is scheduled for pelvic ultrasound on -2 days from now. Is on OCP. Past medical history, appointments, medications, allergies reviewed. Previous Medical History PAST MEDICAL HISTORY Diagnosis Date Calculus of kidney Migraine headache with aura PMDD (premenstrual dysphoric disorder) 2019 Syncope and collapse Previous Surgical History PAST SURGICAL HISTORY Procedure Laterality Date INSERTION OF IUD 10/24/2021 removed 09/14/2023 PAST SURGICAL HISTORY OF removal of renal calculi via lithotrypsy PAST SURGICAL HISTORY OF 06/24/2014 PCP of right thumb UNLISTED PROCEDURE LACRIMAL SYSTEM 02/18/2004 DR WHEELER Family History FAMILY HISTORY Problem Relation Age of Onset Hypertension Mother Started in mid-30's Hypertension Father No Known Problems Sister No Known Problems Brother Hypertension Maternal Grandmother Hypertension Maternal Grandfather Lipids Maternal Grandfather other (FIBROMYALGIA) Paternal Grandmother Patient Allergies ALLERGIES Allergen Reactions Codeine Tramadol Itching, Other: See Comments Dizziness Current Medications Current Outpatient Medications on File Prior to Visit Medication Sig PARoxetine (PAXIL) 10 mg tablet Take 1 tablet by mouth once daily. metoprolol succinate ER (TOPROL XL) 100 mg Take 1.5 tablets by mouth once daily. baclofen 10 mg tablet Take 10 mg by mouth once daily as needed. norethindrone (AYGESTIN) 5 mg tablet Take 1 tablet by mouth once daily. galcanezumab-gnlm (EMGALITY PEN) 120 mg/mL pen Inject 2 pens (240 mg) under the skin 1 time only for initial loading dose. Refrigerate. Do not shake. galcanezumab-gnlm (EMGALITY PEN) 120 mg/mL pen Inject 1 mL subcutaneously once every month. Refrigerate. Do not shake. Patient should start on June 04, 2024. ubrogepant (UBRELVY) 100 mg tablet Take 1 tab at migraine onset. May repeat once in 2 hours as needed. DULoxetine (CYMBALTA) 60 mg capsule Take 1 capsule by mouth once daily. lisinopril (ZESTRIL) 5 mg tablet Take 1 tablet by mouth once daily. Cholecalciferol, Vitamin D3, 50 mcg (2,000 unit) cap Take 1 capsule by mouth once daily. [DISCONTINUED] Norethindrone Acet-Ethinyl Est (,) 1-20 mg-mcg per tablet Take 1 tablet by mouth once daily. No current facility-administered medications on file prior to visit. Social History Social History Tobacco Use Smoking status: Never Smokeless tobacco: Never Vaping Use Vaping status: Never Used Substance Use Topics Alcohol use: No Comment: rare Drug use: No Review of Symptoms REVIEW OF SYSTEMS See HPI, otherwise negative EXAM: BP 142/96 (BP Site: Left Arm, BP Position: Sitting, BP Cuff Size: Regular Adult) Pulse 83 Resp 16 Wt 68.5 kg (151 lb) LMP 05/02/2024 (Within Days) SpO2 99% BMI 26.75 kg/m? General Appearance: Well appearing, alert, in no acute distress, well-hydrated, well nourished.. Lungs: Lungs clear to auscultation. No wheezing, rhonchi, rales.. Heart: RRR without murmur, gallop, or rubs. No ectopy. Psychiatric: pleasant, cooperative. Health Maintenance List Asthma Action Plan Never done Asthma Control Test Never done Meningococcal B Vaccine: Consider Based On Risk(1 of 2 - Patient Seeks Protection) Never done Spirometry Never done Depression Screening Never done Anxiety Screening Never done Hepatitis C Screening Never done HIV Screening Never done BP Controlled (<130/80) Never done Cervical Cancer Screening Never done Covid-19 Vaccine(2023- season) Never done GC (Gonorrhea) Screening (18-24) due on 09/12/2024 Chlamydia Screening (18-24) due on 09/12/2024 DTaP,Tdap,Td Vaccine(7 - Td or Tdap) due on 09/22/2025 Annual PCP Team Chronic Disease Visit due on 10/21/2025 Hepatitis B Vaccine Completed HPV Vaccine Completed Influenza Vaccine Completed Data reviewed Previous records, office notes ASSESSMENT/PLAN: 1. Hypertension, essential - ICD9: 401.9, ICD10: I10 (primary diagnosis) - Uncontrolled - Recommend home blood pressure monitoring, to bring results to next visit - Encouraged sodium restriction, DASH or Mediterranean diet - Recommend regular aerobic exercise - increase lisinopril from 5mg to 10 mg da (more content not included)... [facility] 11-25-2024 History of Presen t illness Narrative Chief Complaint Patient presents with: BP Check HPI Maricruz Tejada is a 19 year old female who presents here today for Above Complaints. BP-does not check at home-accidentally put it in a storage unit because planning to move. Can tell her BP is elevated-feels off and headache. Denies CP or SOB. Occasional palpitations-this does cause a little SOB-infrequent and no more than 5 minutes or so. Anxiety/depression is under control-is the best it has been in a long time-[employer] and Prozac. Much less heart racing. Has never had a regular period in her life. Is scheduled for pelvic ultrasound on -2 days from now. Is on OCP. Past medical history, appointments, medications, allergies reviewed. Previous Medical History PAST MEDICAL HISTORY Diagnosis Date Calculus of kidney Migraine headache with aura PMDD (premenstrual dysphoric disorder) 2019 Syncope and collapse Previous Surgical History PAST SURGICAL HISTORY Procedure Laterality Date INSERTION OF IUD 10/24/2021 removed 09/14/2023 PAST SURGICAL HISTORY OF removal of renal calculi via lithotrypsy PAST SURGICAL HISTORY OF 06/24/2014 PCP of right thumb UNLISTED PROCEDURE LACRIMAL SYSTEM 02/18/2004 DR WHEELER Family History FAMILY HISTORY Problem Relation Age of Onset Hypertension Mother Started in mid-30's Hypertension Father No Known Problems Sister No Known Problems Brother Hypertension Maternal Grandmother Hypertension Maternal Grandfather Lipids Maternal Grandfather other (FIBROMYALGIA) Paternal Grandmother Patient Allergies ALLERGIES Allergen Reactions Codeine Tramadol Itching, Other: See Comments Dizziness Current Medications Current Outpatient Medications on File Prior to Visit Medication Sig PARoxetine (PAXIL) 10 mg tablet Take 1 tablet by mouth once daily. metoprolol succinate ER (TOPROL XL) 100 mg Take 1.5 tablets by mouth once daily. baclofen 10 mg tablet Take 10 mg by mouth once daily as needed. norethindrone (AYGESTIN) 5 mg tablet Take 1 tablet by mouth once daily. galcanezumab-gnlm (EMGALITY PEN) 120 mg/mL pen Inject 2 pens (240 mg) under the skin 1 time only for initial loading dose. Refrigerate. Do not shake. galcanezumab-gnlm (EMGALITY PEN) 120 mg/mL pen Inject 1 mL subcutaneously once every month. Refrigerate. Do not shake. Patient should start on June 04, 2024. ubrogepant (UBRELVY) 100 mg tablet Take 1 tab at migraine onset. May repeat once in 2 hours as needed. DULoxetine (CYMBALTA) 60 mg capsule Take 1 capsule by mouth once daily. lisinopril (ZESTRIL) 5 mg tablet Take 1 tablet by mouth once daily. Cholecalciferol, Vitamin D3, 50 mcg (2,000 unit) cap Take 1 capsule by mouth once daily. [DISCONTINUED] Norethindrone Acet-Ethinyl Est (JUNE,) 1-20 mg-mcg per tablet Take 1 tablet by mouth once daily. No current facility-administered medications on file prior to visit. Social History Social History Tobacco Use Smoking status: Never Smokeless tobacco: Never Vaping Use Vaping status: Never Used Substance Use Topics Alcohol use: No Comment: rare Drug use: No Review of Symptoms REVIEW OF SYSTEMS See HPI, otherwise negative EXAM: BP 142/96 (BP Site: Left Arm, BP Position: Sitting, BP Cuff Size: Regular Adult) Pulse 83 Resp 16 Wt 68.5 kg (151 lb) LMP 05/02/2024 (Within Days) SpO2 99% BMI 26.75 kg/m General Appearance: Well appearing, alert, in no acute distress, well-hydrated, well nourished.. Lungs: Lungs clear to auscultation. No wheezing, rhonchi, rales.. Heart: RRR without murmur, gallop, or rubs. No ectopy. Psychiatric: pleasant, cooperative. Health Maintenance List Asthma Action Plan Never done Asthma Control Test Never done Meningococcal B Vaccine: Consider Based On Risk(1 of 2 - Patient Seeks Protection) Never done Spirometry Never done Depression Screening Never done Anxiety Screening Never done Hepatitis C Screening Never done HIV Screening Never done BP Controlled (<130/80) Never done Cervical Cancer Screening Never done Covid-19 Vaccine(2023- season) Never done GC (Gonorrhea) Screening (18-24) due on 09/12/2024 Chlamydia Screening (18-24) due on 09/12/2024 DTaP,Tdap,Td Vaccine(7 - Td or Tdap) due on 09/22/2025 Annual PCP Team Chronic Disease Visit due on 10/21/2025 Hepatitis B Vaccine Completed HPV Vaccine Completed Influenza Vaccine Completed Data reviewed Previous records, office notes ASSESSMENT/PLAN: 1. Hypertension, essential - ICD9: 401.9, ICD10: I10 (primary diagnosis) - Uncontrolled - Recommend home blood pressure monitoring, to bring results to next visit - Encouraged sodium restriction, DASH or Mediterranean diet - Recommend regular aerobic exercise - increase lisinopril from 5mg to 10 mg daily F/u in the office in 1 month - INSULIN ASSAY BLOOD - HEMOGLOBIN A1C - COMPREHENSIVE METABOLIC PANEL - COMPLETE BLOOD COUNT - URINALYSIS, WITH MICROSCOPIC 2. Palpitations - ICD9: 785.1, ICD10: R00.2 Schedule with cardiology - INSULIN ASSAY BLOOD - HEMOGLOBIN A1C - COMPREHENSIVE METABOLIC PANEL - COMPLETE BLOOD COUNT - URINALYSIS, WITH MICROSCOPIC 3. Tachycardia - ICD9: 785.0, ICD10: R00.0 Schedule with cardiology - INSULIN ASSAY BLOOD - HEMOGLOBIN A1C - COMPREHENSIVE METABOLIC PANEL - COMPLETE BLOOD COUNT - URINALYSIS, WITH MICROSCOPIC 4. Insulin resistance - ICD9: 277.7, ICD10: E88.819 PCOS workup Is already scheduled for pelvic ultrasound in 2 days - INSULIN ASSAY BLOOD - HEMOGLOBIN A1C - COMPREHENSIVE METABOLIC PANEL - COMPLETE BLOOD COUNT - PROLACTIN - TESTOSTERONE, FREE AND TOTAL, BY EQUILIBRIUM ULTRAFILTRATION MASS SPECTROMETRY - HYDROXYPROGESTERONE-17 - THYROID STIMULATING HORMONE - T3 - T4 FREE/FREE THYROXINE - DHEA-S BLD 5. Menorrhagia with irregular cycle - ICD9: 626.2, ICD10: N92.1 PCOS workup Is already scheduled for pelvic ultrasound in 2 days - IRON AND TIBC - FERRITIN - PROLACTIN - TESTOSTERONE, FREE AND TOTAL, BY EQUILIBRIUM ULTRAFILTRATION MASS SPECTROMETRY - HYDROXYPROGESTERONE-17 - THYROID STIMULATING HORMONE - T3 - T4 FREE/FREE THYROXINE - DHEA-S BLD 6. Abnormal menstrual cycle - ICD9: 626.9, ICD10: N92.6 PCOS workup Is already scheduled for pelvic ultrasound in 2 days - PROLACTIN - TESTOSTERONE, FREE AND TOTAL, BY EQUILIBRIUM ULTRAFILTRATION MASS SPECTROMETRY - HYDROXYPROGESTERONE-17 - THYROID STIMULATING HORMONE - T3 - T4 FREE/FREE THYROXINE - DHEA-S BLD Kelsi Bermudez APRN.CNP Greater than 50% of 43-minute visit spent face to face with patient in counseling and education. documented in this encounter [facility] 11-20-2024 Telephone encounter Note Pt notified and pelvic u/s scheduled for 11/27/24. Offered sooner appt; however, Pt unable to come in 11/21/24 d/t work obligations. Vashti Virgen RN [facility] 11-20-2024 Miscellaneous Notes Pt notified and pelvic u/s scheduled for 11/27/24. Offered sooner appt; however, Pt unable to come in 11/21/24 d/t work obligations. Vashti Virgen RN Left message for patient to call office. Maritza Ching RN Please let the patient know that I have ordered a pelvic ultrasound for further evaluation of the uterine lining. She can take the norethindrone 2 tablets daily to see if that will help stop the bleeding and then go back down to 1 daily once the bleeding has stopped for at least 24 hours. Emely Handy APRN.MAYA Patient states her period started 4 days ago and bleeding has been heavy since starting. During the night patient states she goes 3-4 hours without changing a tampon, but during the day she is changing a super plus tampon every hour since bleeding started. Clots present with bleeding. Denies cramping abdominal cramping, but just a generalized discomfort in abdomen. Denies any dizziness, chest pain or SOB. Patient states her last period started the beginning of October and lasted 2 weeks. Prior to last months period patient had not had a menstrual cycle since starting the Aygestin in April Patient sent Vite message in regards to last months bleeding and was advised to stop the medication for 7 days. Bleeding stopped on day 2 of stopping the medication and after 7 days patient restarted the medication. Please advise. Alexandria Fernandez RN documented in this encounter [facility] 11-20-2024 Telephone encounter Note Left message for patient to call office. Maritza Ching RN [facility] 11-20-2024 Telephone encounter Note Please let the patient know that I have ordered a pelvic ultrasound for further evaluation of the uterine lining. She can take the norethindrone 2 tablets daily to see if that will help stop the bleeding and then go back down to 1 daily once the bleeding has stopped for at least 24 hours. Emely Handy APRN.MAYA [facility] 11-20-2024 Telephone encounter Note Patient states her period started 4 days ago and bleeding has been heavy since starting. During the night patient states she goes 3-4 hours without changing a tampon, but during the day she is changing a super plus tampon every hour since bleeding started. Clots present with bleeding. Denies cramping abdominal cramping, but just a generalized discomfort in abdomen. Denies any dizziness, chest pain or SOB. Patient states her last period started the beginning of October and lasted 2 weeks. Prior to last months period patient had not had a menstrual cycle since starting the Aygestin in April Patient sent Vite message in regards to last months bleeding and was advised to stop the medication for 7 days. Bleeding stopped on day 2 of stopping the medication and after 7 days patient restarted the medication. Please advise. Alexandria Fernandez RN [facility] 10-21-2024 Note HNO ID: [id number] Author: KELSI BERMUDEZ APRN.SENIOR ACCOUNT CLERK Service: ? Author Type: Nurse Practitioner Type: Progress Notes Filed: 10/22/2024 18:38 Note Text: Chief Complaint Patient presents with: Follow Up: Hypertension and tachycardia HPI Maricruz Tejada is a 19 year old female who presents here today for Above Complaints. HTN, tachycardia-when she works out ends up with tachycardia and a bad h/a. R/t her BP. Does get anxiety after this because her heart is racing. But doesn't have any anxiety prior to this. Resting HR has been 100's. Running 200's. Walking 150's. BP averaging 150's/90-100's. Has bee doing PT for her shoulder and even during this her HR goes up with minimal exercise. Past medical history, appointments, medications, allergies reviewed. Previous Medical History PAST MEDICAL HISTORY Diagnosis Date Calculus of kidney Migraine headache with aura PMDD (premenstrual dysphoric disorder) 2019 Syncope and collapse Previous Surgical History PAST SURGICAL HISTORY Procedure Laterality Date INSERTION OF IUD 10/24/2021 removed 09/14/2023 PAST SURGICAL HISTORY OF removal of renal calculi via lithotrypsy PAST SURGICAL HISTORY OF 06/24/2014 PCP of right thumb UNLISTED PROCEDURE LACRIMAL SYSTEM 02/18/2004 DR WHEELER Family History FAMILY HISTORY Problem Relation Age of Onset Hypertension Mother Started in mid-30's Hypertension Father No Known Problems Sister No Known Problems Brother Hypertension Maternal Grandmother Hypertension Maternal Grandfather Lipids Maternal Grandfather other (FIBROMYALGIA) Paternal Grandmother Patient Allergies ALLERGIES Allergen Reactions Codeine Tramadol Itching, Other: See Comments Dizziness Current Medications Current Outpatient Medications on File Prior to Visit Medication Sig PARoxetine (PAXIL) 10 mg tablet Take 1 tablet by mouth once daily. baclofen 10 mg tablet Take 10 mg by mouth once daily as needed. metoprolol succinate ER (TOPROL XL) 100 mg Take 1 tablet by mouth once daily. norethindrone (AYGESTIN) 5 mg tablet Take 1 tablet by mouth once daily. galcanezumab-gnlm (EMGALITY PEN) 120 mg/mL pen Inject 2 pens (240 mg) under the skin 1 time only for initial loading dose. Refrigerate. Do not shake. galcanezumab-gnlm (EMGALITY PEN) 120 mg/mL pen Inject 1 mL subcutaneously once every month. Refrigerate. Do not shake. Patient should start on June 04, 2024. ubrogepant (UBRELVY) 100 mg tablet Take 1 tab at migraine onset. May repeat once in 2 hours as needed. DULoxetine (CYMBALTA) 60 mg capsule Take 1 capsule by mouth once daily. lisinopril (ZESTRIL) 5 mg tablet Take 1 tablet by mouth once daily. Cholecalciferol, Vitamin D3, 50 mcg (2,000 unit) cap Take 1 capsule by mouth once daily. etodolac (LODINE) 400 mg tablet Take 1 tablet by mouth two times a day. (Patient not taking: Reported on 08/29/2024) [DISCONTINUED] Norethindrone Acet-Ethinyl Est (,) 1-20 mg-mcg per tablet Take 1 tablet by mouth once daily. No current facility-administered medications on file prior to visit. Social History Social History Tobacco Use Smoking status: Never Smokeless tobacco: Never Vaping Use Vaping status: Never Used Substance Use Topics Alcohol use: No Comment: rare Drug use: No Review of Symptoms REVIEW OF SYSTEMS See HPI, otherwise negative EXAM: Wt 67.9 kg (149 lb 11.1 oz) LMP 05/02/2024 (Within Days) BMI 26.52 kg/m? General Appearance: Well appearing, alert, in no acute distress, well-hydrated, well nourished.. Lungs: Lungs clear to auscultation. No wheezing, rhonchi, rales.. Heart: RRR without murmur, gallop, or rubs. No ectopy. Psychiatric: pleasant, cooperative. Health Maintenance List Asthma Action Plan Never done Asthma Control Test Never done Meningococcal B Vaccine: Consider Based On Risk(1 of 2 - Patient Seeks Protection) Never done Spirometry Never done Depression Screening Never done Anxiety Screening Never done Hepatitis C Screening Never done HIV Screening Never done BP Controlled (<130/80) Never done Cervical Cancer Screening Never done Covid-19 Vaccine(2023- season) Never done GC (Gonorrhea) Screening (18-24) due on 09/12/2024 Chlamydia Screening (18-24) due on 09/12/2024 Annual PCP Team Chronic Disease Visit due on 07/15/2025 DTaP,Tdap,Td Vaccine(7 - Td or Tdap) due on 09/22/2025 Hepatitis B Vaccine Completed HPV Vaccine Completed Influenza Vaccine Completed Data reviewed Previous records, office notes ASSESSMENT/PLAN: 1. Depression, unspecified depression type - ICD9: 311, ICD10: F32.A - PAROXETINE 10 MG TABLET 2. Stress - ICD9: V62.89, ICD10: F43.9 - PAROXETINE 10 MG TABLET 3. Hypertension, essential - ICD9: 401.9, ICD10: I10 Increase metoprolol to 150mg daily. I did suggest 75mg bid, but this would be difficult for her to remember the 2nd dose. We'll f/u in the office in 2 weeks for reevaluation. - METOPRO (more content not included)... [facility] 10-21-2024 History of Presen t illness Narrative Chief Complaint Patient presents with: Follow Up: Hypertension and tachycardia HPI Maricruz Tejada is a 19 year old female who presents here today for Above Complaints. HTN, tachycardia-when she works out ends up with tachycardia and a bad h/a. R/t her BP. Does get anxiety after this because her heart is racing. But doesn't have any anxiety prior to this. Resting HR has been 100's. Running 200's. Walking 150's. BP averaging 150's/90-100's. Has bee doing PT for her shoulder and even during this her HR goes up with minimal exercise. Past medical history, appointments, medications, allergies reviewed. Previous Medical History PAST MEDICAL HISTORY Diagnosis Date Calculus of kidney Migraine headache with aura PMDD (premenstrual dysphoric disorder) 2019 Syncope and collapse Previous Surgical History PAST SURGICAL HISTORY Procedure Laterality Date INSERTION OF IUD 10/24/2021 removed 09/14/2023 PAST SURGICAL HISTORY OF removal of renal calculi via lithotrypsy PAST SURGICAL HISTORY OF 06/24/2014 PCP of right thumb UNLISTED PROCEDURE LACRIMAL SYSTEM 02/18/2004 DR WHEELER Family History FAMILY HISTORY Problem Relation Age of Onset Hypertension Mother Started in mid-30's Hypertension Father No Known Problems Sister No Known Problems Brother Hypertension Maternal Grandmother Hypertension Maternal Grandfather Lipids Maternal Grandfather other (FIBROMYALGIA) Paternal Grandmother Patient Allergies ALLERGIES Allergen Reactions Codeine Tramadol Itching, Other: See Comments Dizziness Current Medications Current Outpatient Medications on File Prior to Visit Medication Sig PARoxetine (PAXIL) 10 mg tablet Take 1 tablet by mouth once daily. baclofen 10 mg tablet Take 10 mg by mouth once daily as needed. metoprolol succinate ER (TOPROL XL) 100 mg Take 1 tablet by mouth once daily. norethindrone (AYGESTIN) 5 mg tablet Take 1 tablet by mouth once daily. galcanezumab-gnlm (EMGALITY PEN) 120 mg/mL pen Inject 2 pens (240 mg) under the skin 1 time only for initial loading dose. Refrigerate. Do not shake. galcanezumab-gnlm (EMGALITY PEN) 120 mg/mL pen Inject 1 mL subcutaneously once every month. Refrigerate. Do not shake. Patient should start on June 04, 2024. ubrogepant (UBRELVY) 100 mg tablet Take 1 tab at migraine onset. May repeat once in 2 hours as needed. DULoxetine (CYMBALTA) 60 mg capsule Take 1 capsule by mouth once daily. lisinopril (ZESTRIL) 5 mg tablet Take 1 tablet by mouth once daily. Cholecalciferol, Vitamin D3, 50 mcg (2,000 unit) cap Take 1 capsule by mouth once daily. etodolac (LODINE) 400 mg tablet Take 1 tablet by mouth two times a day. (Patient not taking: Reported on 08/29/2024) [DISCONTINUED] Norethindrone Acet-Ethinyl Est (,) 1-20 mg-mcg per tablet Take 1 tablet by mouth once daily. No current facility-administered medications on file prior to visit. Social History Social History Tobacco Use Smoking status: Never Smokeless tobacco: Never Vaping Use Vaping status: Never Used Substance Use Topics Alcohol use: No Comment: rare Drug use: No Review of Symptoms REVIEW OF SYSTEMS See HPI, otherwise negative EXAM: Wt 67.9 kg (149 lb 11.1 oz) LMP 05/02/2024 (Within Days) BMI 26.52 kg/m General Appearance: Well appearing, alert, in no acute distress, well-hydrated, well nourished.. Lungs: Lungs clear to auscultation. No wheezing, rhonchi, rales.. Heart: RRR without murmur, gallop, or rubs. No ectopy. Psychiatric: pleasant, cooperative. Health Maintenance List Asthma Action Plan Never done Asthma Control Test Never done Meningococcal B Vaccine: Consider Based On Risk(1 of 2 - Patient Seeks Protection) Never done Spirometry Never done Depression Screening Never done Anxiety Screening Never done Hepatitis C Screening Never done HIV Screening Never done BP Controlled (<130/80) Never done Cervical Cancer Screening Never done Covid-19 Vaccine(2023-) Never done GC (Gonorrhea) Screening (-) due on 09/12/2024 Chlamydia Screening (18-24) due on 09/12/2024 Annual PCP Team Chronic Disease Visit due on 07/15/2025 DTaP,Tdap,Td Vaccine(7 - Td or Tdap) due on 09/22/2025 Hepatitis B Vaccine Completed HPV Vaccine Completed Influenza Vaccine Completed Data reviewed Previous records, office notes ASSESSMENT/PLAN: 1. Depression, unspecified depression type - ICD9: 311, ICD10: F32.A - PAROXETINE 10 MG TABLET 2. Stress - ICD9: V62.89, ICD10: F43.9 - PAROXETINE 10 MG TABLET 3. Hypertension, essential - ICD9: 401.9, ICD10: I10 Increase metoprolol to 150mg daily. I did suggest 75mg bid, but this would be difficult for her to remember the 2nd dose. We'll f/u in the office in 2 weeks for reevaluation. - METOPROLOL SUCCINATE ER 100 MG TABLET,EXTENDED RELEASE 24 HR 4. Palpitations - ICD9: 785.1, ICD10: R00.2 Increase metoprolol to 150mg daily. I did suggest 75mg bid, but this would be difficult for her to remember the 2nd dose. We'll f/u in the office in 2 weeks for reevaluation. - METOPROLOL SUCCINATE ER 100 MG TABLET,EXTENDED RELEASE 24 HR 5. Tachycardia - ICD9: 785.0, ICD10: R00.0 Increase metoprolol to 150mg daily. I did suggest 75mg bid, but this would be difficult for her to remember the 2nd dose. We'll f/u in the office in 2 weeks for reevaluation. - METOPROLOL SUCCINATE ER 100 MG TABLET,EXTENDED RELEASE 24 HR Kelsi Bermudez APRN.SENIOR ACCOUNT CLERK documented in this encounter [facility] 10-01-2024 Note HNO ID: [id number] Author: RAYA AMBRIZ, PT Service: ? Author Type: Physical Therapist Type: Progress Notes Filed: 10/01/2024 10:23 Note Text: Episode Visit Count: 4 Therapist That Will Accept/Oversee The Plan Of Care: Raya Ambriz Start of Care Date: 09/02/24 Onset Date: 09/02/22 Plan of Care Certification Date: 10/01/24 Next Certification Due Date: 11/12/24 REHABILITATION AND SPORTS THERAPY PHYSICAL THERAPY PROGRESS REPORT PLAN OF CARE UPDATE: Assessment: Maricruz Tejada demonstrates minimal improvement in sleeping. The patient has progressed toward goals. Patient continues to present with impairments in ADL's, flexibility, independence in exercise, joint mobility, overall function, patient reported outcome measures, posture, range of motion, strength, symptom management, and tissue tenderness that interfere with lifting, reaching behind back, reaching overhead, use hand with arm at shoulder level, working . Current prognosis is Good due to: positive past response to therapy, within-session changes, good support system/ coping skills, current objective clinical presentation, good overall health status . The patient will benefit from continued skilled therapy services to meet the updated goals for this plan of care as noted below. Goals for Episode of Care: established 09/02/24 Goals updated on 10/01/2024. Spencer in home exercise program. -- MET Patient will decrease pain to 1-2/10 with functional activities to allow patient to improve tolerance for ADLs. -- PROGRESSING, 8/10 with reaching overhead to braid the hair Patient will increase active ROM of right shoulder abduction to 160 degrees or greater without increased symptoms to allow pt to to improve postural alignment and to improve performance of ADLs. -- PROGRESSING Patient will increase flexibility of R UT and levator scapulae to WNL to improve ability to maintain proper posture, improve mechanics, and decrease pain. -- PROGRESSING PECTORALIS Perform reaching behind the back and overhead with decreased report of symptoms/pain in 6 weeks. -- PROGRESSING Improve postural awareness. -- PROGRESSING Patient Goals: reduce R shoulder pain -- PROGRESSING Time Frame for Goals and Treatment : 10/28/24 Patient Goals: reduce R shoulder pain Planned Interventions, Frequency, and Duration: 1x/week, 6 weeks Total Number of Visits Planned: 6 Patient to be seen for Therapeutic exercise (76511), Neuromuscular re-education (60333), Manual therapy (11651), Therapeutic activities (35370), Self-nursing home management (06235) PLAN FOR NEXT VISIT: assess symptom response to dry needling. consider levator insertion and scapular needling next visit SUBJECTIVE: Pt. has pain with braiding her hair and many of the other things that was causing pain prior. Pt. reports less intensity of pain, however duration and frequency have not changed much. When she lays on the right side, she wakes up with a headache.. Patient Goals: reduce R shoulder pain Functional Limitations: lifting, reaching behind back, reaching overhead, use hand with arm at shoulder level, working Pain: Pain Pain Location: Shoulder - Right Post Treatment Pain Post Treatment Pain Level: 6 Post Treatment Pain Location: Shoulder - Right Post Treatment Symptoms: IR AROM improved to L3 following DN with less pain PROMIS Scales 09/02/2024 Higher is Better Phys Func - Score 51 (within normal limits) Phys Func - Percentile 54 Self-Eff Symptom - Score 54 (Average) Self-Eff Symptom - Percentile 66 T-scores: mean of general population = 50. 5 points is clinically meaningfully difference Percentiles provide an indication of how the patient's score ranks in relation to the general population. Higher percentile rankings indicate better function/quality of life. 50th percentile is the average of the general population and indicates half of respondents had a worse score. OBJECTIVE MEASURES WITH LEVEL OF FUNCTION: UE AROM R Shoulder Flex: 123 Degrees (before onset of pain) R Shoulder ABduction: 84 Degrees R Shoulder Internal Rotation (Functional): L3 R Shoulder External Rotation (Functional): unable to reach greater than 90 abd UE Flexibility R Upper Trapezius Flexibilty Comments: WFL R Levator Scapulae Flexibilty Comments: WFL R Pectorals Comments: limited TREATMENT: Therapeutic Exercise: 1: pectoralis minor stretching Rx30 sec R 2: biceps stretching 5x30 sec R 3: cross body stretch 5x30 sec R 4: *wand B shoulder extension 3x10 (every hour x 1 day, then resume other HEP) 5: *wand B shoulder IR 4x10 (every hour x 1 day, then resume other HEP) 6: wand shoulder abd AAROM 4x10 Skilled Intervention: Patient was educated in proper exercise technique and purpose for exercises. Skilled judgment was used in selection of appropriate interventions. Provided written instruction for home exercise program to facilitate proper performanc (more content not included)... [facility] 10-01-2024 History of Presen t illness Narrative Episode Visit Count: 4 Therapist That Will Accept/Oversee The Plan Of Care: Raya Ambriz Start of Care Date: 09/02/24 Onset Date: 09/02/22 Plan of Care Certification Date: 10/01/24 Next Certification Due Date: 11/12/24 REHABILITATION AND SPORTS THERAPY PHYSICAL THERAPY PROGRESS REPORT PLAN OF CARE UPDATE: Assessment: Maricruz Tejada demonstrates minimal improvement in sleeping. The patient has progressed toward goals. Patient continues to present with impairments in ADL's, flexibility, independence in exercise, joint mobility, overall function, patient reported outcome measures, posture, range of motion, strength, symptom management, and tissue tenderness that interfere with lifting, reaching behind back, reaching overhead, use hand with arm at shoulder level, working . Current prognosis is Good due to: positive past response to therapy, within-session changes, good support system/ coping skills, current objective clinical presentation, good overall health status . The patient will benefit from continued skilled therapy services to meet the updated goals for this plan of care as noted below. Goals for Episode of Care: established 09/02/24 Goals updated on 10/01/2024. Spencer in home exercise program. -- MET Patient will decrease pain to 1-2/10 with functional activities to allow patient to improve tolerance for ADLs. -- PROGRESSING, 8/10 with reaching overhead to braid the hair Patient will increase active ROM of right shoulder abduction to 160 degrees or greater without increased symptoms to allow pt to to improve postural alignment and to improve performance of ADLs. -- PROGRESSING Patient will increase flexibility of R UT and levator scapulae to WNL to improve ability to maintain proper posture, improve mechanics, and decrease pain. -- PROGRESSING PECTORALIS Perform reaching behind the back and overhead with decreased report of symptoms/pain in 6 weeks. -- PROGRESSING Improve postural awareness. -- PROGRESSING Patient Goals: reduce R shoulder pain -- PROGRESSING Time Frame for Goals and Treatment : 10/28/24 Patient Goals: reduce R shoulder pain Planned Interventions, Frequency, and Duration: 1x/week, 6 weeks Total Number of Visits Planned: 6 Patient to be seen for Therapeutic exercise (40890), Neuromuscular re-education (75334), Manual therapy (78434), Therapeutic activities (51991), Self-nursing home management (67406) PLAN FOR NEXT VISIT: assess symptom response to dry needling. consider levator insertion and scapular needling next visit SUBJECTIVE: Pt. has pain with braiding her hair and many of the other things that was causing pain prior. Pt. reports less intensity of pain, however duration and frequency have not changed much. When she lays on the right side, she wakes up with a headache.. Patient Goals: reduce R shoulder pain Functional Limitations: lifting, reaching behind back, reaching overhead, use hand with arm at shoulder level, working Pain: Pain Pain Location: Shoulder - Right Post Treatment Pain Post Treatment Pain Level: 6 Post Treatment Pain Location: Shoulder - Right Post Treatment Symptoms: IR AROM improved to L3 following DN with less pain PROMIS Scales 09/02/2024 Higher is Better Phys Func - Score 51 (within normal limits) Phys Func - Percentile 54 Self-Eff Symptom - Score 54 (Average) Self-Eff Symptom - Percentile 66 T-scores: mean of general population = 50. 5 points is clinically meaningfully difference Percentiles provide an indication of how the patient's score ranks in relation to the general population. Higher percentile rankings indicate better function/quality of life. 50th percentile is the average of the general population and indicates half of respondents had a worse score. OBJECTIVE MEASURES WITH LEVEL OF FUNCTION: UE AROM R Shoulder Flex: 123 Degrees (before onset of pain) R Shoulder ABduction: 84 Degrees R Shoulder Internal Rotation (Functional): L3 R Shoulder External Rotation (Functional): unable to reach greater than 90 abd UE Flexibility R Upper Trapezius Flexibilty Comments: WFL R Levator Scapulae Flexibilty Comments: WFL R Pectorals Comments: limited TREATMENT: Therapeutic Exercise: 1: pectoralis minor stretching Rx30 sec R 2: biceps stretching 5x30 sec R 3: cross body stretch 5x30 sec R 4: *wand B shoulder extension 3x10 (every hour x 1 day, then resume other HEP) 5: *wand B shoulder IR 4x10 (every hour x 1 day, then resume other HEP) 6: wand shoulder abd AAROM 4x10 Skilled Intervention: Patient was educated in proper exercise technique and purpose for exercises. Skilled judgment was used in selection of appropriate interventions. Provided written instruction for home exercise program to facilitate proper performance and compliance. Correct performance of therapeutic exercises was facilitated with verbal, visual, and tactile cuing. Educated patient on rationale for performing exercises in regards to decreasing fatigue , increase ease of ADL, and ROM and function . Patient education as noted. Manual Therapy: Soft Tissue Mobilization: R anterior deltoid and R pect minor, and R UT STM x 5 min Dry Needling: please see note Skilled Intervention: Manual skills to improve joint mobility, ROM, and decrease pain. Utilized anatomy knowledge of the therapist, and assessment of patient's response to intervention. Dry needling to following Trigger points: R coracoid insertion of pectoralis minor and R anterior deltoid Needle length: 30mm 1.2 in. [place] used 2, needles removed 2. Dry needling technique used: Pistoning. Patient education on purpose, precautions, safety, risks, and other treatment options regarding dry needling. Verbal consent received. Self-Senior Living Management: 1: instructed pt.to stretch every hour today 2: discussed pre and post DN precautions/contraindications 3: pt. to expect soreness 4: advised ED and reviewd signs and symptoms of pneumothorax 5: discussed purpose of DN Skilled Intervention: Skilled judgment in the selection of proper modification for activity of daily living/home management based on clinical presentation, deficits, and needs. Reviewed patient specific diagnosis in relation to activities of daily living/home management. Activity progression based on professional judgement. Moderate verbal cues for maintaining neutral spine alignment. Correct performance of home program was facilitated with verbal, visual, and tactile cueing. Billing Therapeutic Exercise Treatment Minutes: 25 Manual TherapyTreatment Minutes: 5 Self-Care/Home Management Treatment Minutes: 9 Skilled Treatment Time Minutes (timed and untimed codes): 39 Total Session Time (minutes): 39 Session Start Time : 940 Session Stop Time : 1020 Raya Ambriz PT documented in this encounter [facility] 09-17-2024 History of Presen t illness Narrative Program_ID:[id number] Access Code: [email or web address] URL: [email or web address] Date: 09-17-2024 Prepared By: Raya Ambriz Program Notes Exercises - Sidelying Shoulder External Rotation - 1-2 x daily - 7 x weekly - 4 sets - 15 reps - Wall Push Up - 1-2 x daily - 7 x weekly - 4 sets - 12 reps - Prone Scapular Retraction Y - 1-2 x daily - 7 x weekly - 4 sets - 12 reps - Prone W Scapular Retraction - 1-2 x daily - 7 x weekly - 4 sets - 12 reps - Standing Bicep Stretch at Wall - 1 x daily - 7 x weekly - 3 sets - reps - Shoulder Flexion Serratus Activation with Resistance - 1 x daily - 7 x weekly - 4 sets - reps Episode Visit Count: 3 Therapist That Will Accept/Oversee The Plan Of Care: Raya Ambriz Start of Care Date: 09/02/24 Onset Date: 09/02/22 Plan of Care Certification Date: 09/02/24 Next Certification Due Date: 10/14/24 REHABILITATION AND SPORTS THERAPY PHYSICAL THERAPY TREATMENT NOTE ASSESSMENT: Maricruz Tejada tolerated the session with decreased symptoms. She demonstrated difficulty with overhead reaching requiring that exercises remain 90 degrees of fwd elevation and below. The patient will continue to benefit from ongoing skilled physical therapy to progress toward set goals. PLAN FOR NEXT VISIT: Continue RTC stabilization strengthening. Progress to physioball wall push ups and ER static hold with theraband. Continue eccentric ER in sidelying. 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 The pain lingered throughout the day. She felt soreness after the last visit. She hasn't taken anything for a couple of days. Patient Goals: reduce R shoulder pain Pain: Pain Pain Level: 6 Pain Location: Shoulder - Right Description: Aching Frequency: With movement Post Treatment Pain Post Treatment Pain Level: 0 Post Treatment Pain Location: Shoulder - Right OBJECTIVE MEASURES WITH LEVEL OF FUNCTION: TREATMENT: Therapeutic Exercise: 1: magnum UE erg 3 min fwd and 3 min rev level 2, 1:1 througout subjective collected 2: push ups on wall 4x12 (denies pain) 3: push ups on 55 cm physioball 4x8 (cues to retract and stabilize with the B scapulae) 4: seated B shoulder ER at 0 abd hold 1x30 sec blue band 5: standing lat stretch with ER isometric blue band 5x15 sec hold 6: *Access Code: [email or web address] URL: [email or web address] Date: 09/17/2024 Prepared by: Raya Castro Exercises - Sidelying Shoulder External Rotation - 1-2 x daily - 7 x weekly - 4 sets - 15 reps - Wall Push Up - 1-2 x daily - 7 x weekly - 4 sets - 12 reps - Prone Scapular Retraction Y - 1-2 x daily - 7 x weekly - 4 sets - 12 reps - Prone W Scapular Retraction - 1-2 x daily - 7 x weekly - 4 sets - 12 reps - Standing Bicep Stretch at Wall - 1 x daily - 7 x weekly - 3 sets - 30 hold - Shoulder Flexion Serratus Activation with Resistance - 1 x daily - 7 x weekly - 4 sets - 30 hold 7: eccentric ER with PT assist SL #5 DB 2x8 Skilled Intervention: Patient was educated in proper exercise technique and purpose for exercises. Skilled judgment was used in selection of appropriate interventions. Provided written instruction for home exercise program to facilitate proper performance and compliance. Correct performance of therapeutic exercises was facilitated with verbal, visual, and tactile cuing. Educated patient on rationale for performing exercises in regards to decreasing fatigue , increase ease of ADL, and ROM and function . Patient education as noted. Self-Senior Living Management: 1: advised pt. have her pt. actively move as much as possible to avoid excsesive pulling and pushing in the hosptial 2: advised use of scapulae with active movements at work Skilled Intervention: Skilled judgment in the selection of proper modification for activity of daily living/home management based on clinical presentation, deficits, and needs. Educated the patient regarding recommendations and provided written instruction to facilitate compliance. Provided written instruction for activities of daily living techniques to facilitate proper performance and compliance. Reviewed patient specific diagnosis in relation to activities of daily living/home management. Activity progression based on professional judgement. Moderate verbal cues for maintaining neutral spine alignment. Provided written instruction for home program to facilitate proper performance and compliance. Correct performance of home program was facilitated with verbal, visual, and tactile cueing. Billing Therapeutic Exercise Treatment Minutes: 40 Self-Care/Home Management Treatment Minutes: 5 Skilled Treatment Time Minutes (timed and untimed codes): 40 Total Session Time (minutes): 40 Session Start Time : 45 Session Stop Time : 1025 Raya Ambriz PT documented in this encounter [facility] 09-17-2024 Note HNO ID: [id number] Author: RAYA AMBRIZ PT Service: ? Author Type: Physical Therapist Type: Progress Notes Filed: 09/17/2024 10:25 Note Text: Episode Visit Count: 3 Therapist That Will Accept/Oversee The Plan Of Care: Raya Ambriz Start of Care Date: 09/02/24 Onset Date: 09/02/22 Plan of Care Certification Date: 09/02/24 Next Certification Due Date: 10/14/24 REHABILITATION AND SPORTS THERAPY PHYSICAL THERAPY TREATMENT NOTE ASSESSMENT: Maricruz Tejada tolerated the session with decreased symptoms. She demonstrated difficulty with overhead reaching requiring that exercises remain 90 degrees of fwd elevation and below. The patient will continue to benefit from ongoing skilled physical therapy to progress toward set goals. PLAN FOR NEXT VISIT: Continue RTC stabilization strengthening. Progress to physioball wall push ups and ER static hold with theraband. Continue eccentric ER in sidelying. 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 The pain lingered throughout the day. She felt soreness after the last visit. She hasn't taken anything for a couple of days. Patient Goals: reduce R shoulder pain Pain: Pain Pain Level: 6 Pain Location: Shoulder - Right Description: Aching Frequency: With movement Post Treatment Pain Post Treatment Pain Level: 0 Post Treatment Pain Location: Shoulder - Right OBJECTIVE MEASURES WITH LEVEL OF FUNCTION: TREATMENT: Therapeutic Exercise: 1: magnum UE erg 3 min fwd and 3 min rev level 2, 1:1 througout subjective collected 2: push ups on wall 4x12 (denies pain) 3: push ups on 55 cm physioball 4x8 (cues to retract and stabilize with the B scapulae) 4: seated B shoulder ER at 0 abd hold 1x30 sec blue band 5: standing lat stretch with ER isometric blue band 5x15 sec hold 6: *Access Code: [email or web address] URL: [email or web address] Date: 09/17/2024 Prepared by: Raya Ambriz Exercises - Sidelying Shoulder External Rotation - 1-2 x daily - 7 x weekly - 4 sets - 15 reps - Wall Push Up - 1-2 x daily - 7 x weekly - 4 sets - 12 reps - Prone Scapular Retraction Y - 1-2 x daily - 7 x weekly - 4 sets - 12 reps - Prone W Scapular Retraction - 1-2 x daily - 7 x weekly - 4 sets - 12 reps - Standing Bicep Stretch at Wall - 1 x daily - 7 x weekly - 3 sets - 30 hold - Shoulder Flexion Serratus Activation with Resistance - 1 x daily - 7 x weekly - 4 sets - 30 hold 7: eccentric ER with PT assist SL #5 DB 2x8 Skilled Intervention: Patient was educated in proper exercise technique and purpose for exercises. Skilled judgment was used in selection of appropriate interventions. Provided written instruction for home exercise program to facilitate proper performance and compliance. Correct performance of therapeutic exercises was facilitated with verbal, visual, and tactile cuing. Educated patient on rationale for performing exercises in regards to decreasing fatigue , increase ease of ADL, and ROM and function . Patient education as noted. Self-Senior Living Management: 1: advised pt. have her pt. actively move as much as possible to avoid excsesive pulling and pushing in the hosptial 2: advised use of scapulae with active movements at work Skilled Intervention: Skilled judgment in the selection of proper modification for activity of daily living/home management based on clinical presentation, deficits, and needs. Educated the patient regarding recommendations and provided written instruction to facilitate compliance. Provided written instruction for activities of daily living techniques to facilitate proper performance and compliance. Reviewed patient specific diagnosis in relation to activities of daily living/home management. Activity progression based on professional judgement. Moderate verbal cues for maintaining neutral spine alignment. Provided written instruction for home program to facilitate proper performance and compliance. Correct performance of home program was facilitated with verbal, visual, and tactile cueing. Billing Therapeutic Exercise Treatment Minutes: 40 Self-Care/Home Management Treatment Minutes: 5 Skilled Treatment Time Minutes (timed and untimed codes): 40 Total Session Time (minutes): 40 Session Start Time : 45 Session Stop Time : 1025 Raya Ambriz, PT [facility] 09-09-2024 Telephone encounter Note Prescription Refill Information The patient has been identified by name and date of : Yes Caregiver verified no other encounters exist for this prescription request: Yes Caregiver confirmed with patient/requestor that no other refills are due, in the near future, with this provider at this time: Yes The last office visit in the department: 07/15/2024 Does the patient have a future office visit with this provider/department: No Requested Prescriptions Pending Prescriptions Disp Refills PARoxetine (PAXIL) 10 mg tablet 30 tablet 1 Sig: Take 1 tablet by mouth once daily. Lynda Patrick LPN September 09, 2024 1:57 PM [facility] 09-09-2024 Miscellaneous Notes Prescription Refill Information The patient has been identified by name and date of : Yes Caregiver verified no other encounters exist for this prescription request: Yes Caregiver confirmed with patient/requestor that no other refills are due, in the near future, with this provider at this time: Yes The last office visit in the department: 07/15/2024 Does the patient have a future office visit with this provider/department: No Requested Prescriptions Pending Prescriptions Disp Refills PARoxetine (PAXIL) 10 mg tablet 30 tablet 1 Sig: Take 1 tablet by mouth once daily. Lynda Patrick LPN September 09, 2024 1:57 PM documented in this encounter [facility] 09-09-2024 History of Presen t illness Narrative Program_ID:[id number] Access Code: [email or web address] URL: [email or web address] Date: 09-09-2024 Prepared By: Raya Ambriz Program Notes Exercises - Standing Shoulder Row with Anchored Resistance - 1 x daily - 7 x weekly - 4 sets - 12 reps - Shoulder extension with resistance - Neutral - 1 x daily - 7 x weekly - 4 sets - 12 reps - Sidelying Shoulder External Rotation - 1 x daily - 7 x weekly - 4 sets - 15 reps - Tricep Push Up on Wall - 1 x daily - 7 x weekly - 4 sets - 12 reps Episode Visit Count: 2 Therapist That Will Accept/Oversee The Plan Of Care: Raya Ambriz Start of Care Date: 09/02/24 Onset Date: 09/02/22 Plan of Care Certification Date: 09/02/24 Next Certification Due Date: 10/14/24 REHABILITATION AND SPORTS THERAPY PHYSICAL THERAPY TREATMENT NOTE ASSESSMENT: Maricruz Tejada tolerated the session with fatigue and expected muscle soreness. She demonstrated difficulty with SL R shoulder ER which improved with repeated reps without added resistance. The patient will continue to benefit from ongoing skilled physical therapy to progress toward set goals. Current Frequency: 2x/week Duration: 8 weeks Total Number of Visits Planned: 16 Planned Treatment Interventions: Therapeutic exercise (12994), Neuromuscular re-education (51620), Manual therapy (56869), Therapeutic activities (50190), Self-nursing home management (29092) PLAN FOR NEXT VISIT: Continue RTC stabilization strengthening. Progress to physioball wall push ups and ER static hold with theraband SUBJECTIVE: Just sore. She worked yesterday and had increased soreness due to lifting heavy pt. Patient Goals: reduce R shoulder pain Pain: Pain Pain Level: 2 Pain Location: Shoulder - Right Description: Aching Frequency: With movement Post Treatment Pain Post Treatment Pain Level: 5 Post Treatment Pain Location: Shoulder - Right Post Treatment Symptoms: fatigue, denies increased symptoms OBJECTIVE MEASURES WITH LEVEL OF FUNCTION: TREATMENT: Therapeutic Exercise: 1: magnum UE erg 3 min fwd and 3 min reverse, 1:1 throughout subjective collected level 1 2: serratus anterior punches 1x10 3: serratus anterior punches 20+ 12 + 12 #5 DB 4: *R shoulder ER SL 0 abd no resistance 4x15 5: B mid rows hoist plate 1 +2 1x12 6: B hoist shoulder extension 4x12 (cues to use the lats) 7: *blue band issued Skilled Intervention: Patient was educated in proper exercise technique and purpose for exercises. Skilled judgment was used in selection of appropriate interventions. Provided written instruction for home exercise program to facilitate proper performance and compliance. Correct performance of therapeutic exercises was facilitated with verbal, visual, and tactile cuing. Educated patient on rationale for performing exercises in regards to decreasing fatigue , increase ease of ADL, and ROM and function . Patient education as noted. Billing Therapeutic Exercise Treatment Minutes: 40 Skilled Treatment Time Minutes (timed and untimed codes): 40 Total Session Time (minutes): 40 Session Start Time : 1105 Session Stop Time : 1145 Raya Ambriz PT documented in this encounter [facility] 09-09-2024 Note HNO ID: [id number] Author: RAYA AMBRIZ PT Service: ? Author Type: Physical Therapist Type: Progress Notes Filed: 09/09/2024 11:43 Note Text: Episode Visit Count: 2 Therapist That Will Accept/Oversee The Plan Of Care: Raya Ambriz Start of Care Date: 09/02/24 Onset Date: 09/02/22 Plan of Care Certification Date: 09/02/24 Next Certification Due Date: 10/14/24 REHABILITATION AND SPORTS THERAPY PHYSICAL THERAPY TREATMENT NOTE ASSESSMENT: Maricruz Tejada tolerated the session with fatigue and expected muscle soreness. She demonstrated difficulty with SL R shoulder ER which improved with repeated reps without added resistance. The patient will continue to benefit from ongoing skilled physical therapy to progress toward set goals. Current Frequency: 2x/week Duration: 8 weeks Total Number of Visits Planned: 16 Planned Treatment Interventions: Therapeutic exercise (61637), Neuromuscular re-education (77880), Manual therapy (21686), Therapeutic activities (32792), Self-nursing home management (67213) PLAN FOR NEXT VISIT: Continue RTC stabilization strengthening. Progress to physioball wall push ups and ER static hold with theraband SUBJECTIVE: Just sore. She worked yesterday and had increased soreness due to lifting heavy pt. Patient Goals: reduce R shoulder pain Pain: Pain Pain Level: 2 Pain Location: Shoulder - Right Description: Aching Frequency: With movement Post Treatment Pain Post Treatment Pain Level: 5 Post Treatment Pain Location: Shoulder - Right Post Treatment Symptoms: fatigue, denies increased symptoms OBJECTIVE MEASURES WITH LEVEL OF FUNCTION: TREATMENT: Therapeutic Exercise: 1: magnum UE erg 3 min fwd and 3 min reverse, 1:1 throughout subjective collected level 1 2: serratus anterior punches 1x10 3: serratus anterior punches 20+ 12 + 12 #5 DB 4: *R shoulder ER SL 0 abd no resistance 4x15 5: B mid rows hoist plate 1 +2 1x12 6: B hoist shoulder extension 4x12 (cues to use the lats) 7: *blue band issued Skilled Intervention: Patient was educated in proper exercise technique and purpose for exercises. Skilled judgment was used in selection of appropriate interventions. Provided written instruction for home exercise program to facilitate proper performance and compliance. Correct performance of therapeutic exercises was facilitated with verbal, visual, and tactile cuing. Educated patient on rationale for performing exercises in regards to decreasing fatigue , increase ease of ADL, and ROM and function . Patient education as noted. Billing Therapeutic Exercise Treatment Minutes: 40 Skilled Treatment Time Minutes (timed and untimed codes): 40 Total Session Time (minutes): 40 Session Start Time : 1105 Session Stop Time : 1145 Raya Ambriz, PT [facility] 09-02-2024 History of Presen t illness Narrative Program_ID:[id number] Access Code: [email or web address] URL: [email or web address] Date: 09-02-2024 Prepared By: Raya Ambriz Program Notes Exercises - Seated Cervical Retraction - 2-3 x daily - 7 x weekly - 4 sets - 10 reps - Seated Scapular Retraction - 2-3 x daily - 7 x weekly - 2 sets - 20 reps Episode Visit Count: 1 Therapist That Will Accept/Oversee The Plan Of Care: Raya Ambriz Start of Care Date: 09/02/24 Onset Date: 09/02/22 Plan of Care Certification Date: 09/02/24 Next Certification Due Date: 10/14/24 Patient Identified by Name and Date of : Yes REHABILITATION AND SPORTS THERAPY PHYSICAL THERAPY EVALUATION PLAN OF CARE: Assessment: Maricruz Tejada presents with diagnosis of disorder of right rotator cuff that interferes with lifting, reaching behind back, reaching overhead, use hand with arm at shoulder level, sleeping, working . The patient presents with impairments in ADL's, flexibility, independence in exercise, joint mobility, overall function, patient reported outcome measures, posture, range of motion, strength, symptom management, and tissue tenderness. PROMIS (Patient-Reported Outcomes Measurement Information System) scores were reviewed and identified as within normal limits. Prognosis for therapy is Good due to: current objective clinical presentation . The patient will benefit from skilled therapy services to meet the goals established for this plan of care as noted below. Goals for Episode of Care: established 09/02/24 [place] in home exercise program. Patient will decrease pain to 1-2/10 with functional activities to allow patient to improve tolerance for ADLs. Patient will increase active ROM of right shoulder abduction to 160 degrees or greater without increased symptoms to allow pt to to improve postural alignment and to improve performance of ADLs. Patient will increase flexibility of R UT and levator scapulae to WNL to improve ability to maintain proper posture, improve mechanics, and decrease pain. Perform reaching behind the back and overhead with decreased report of symptoms/pain in 6 weeks. Improve postural awareness. Patient Goals: reduce R shoulder pain Time Frame for Goals and Treatment : 10/28/24 Planned Interventions, Frequency, and Duration: Current Frequency: 2x/week Duration: 8 weeks Total Number of Visits Planned: 16 Planned Treatment Interventions: Therapeutic exercise (77132), Neuromuscular re-education (19051), Manual therapy (95490), Therapeutic activities (78376), Self-nursing home management (23256) PLAN FOR NEXT VISIT: Patient demonstrates good understanding of plan of care and treatment. The above goals and plan of care were discussed and agreed upon by patient/family. SUBJECTIVE: for chronic R neck and R shoulder pain that onset during 2 injuries in highschool. No improvement so pt. had it looked at. Pt. has had x2 cortisone injections so far which resulted in only some improvement. Takes OTC tylenol for pain, but this only helps a litte. Increases with use. Parital tear of distal supraspinatus per MRI. Mild tendinosis of the rotator cuff. 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 Infection Clinical Reasoning: No identified risk factors. Cervical Arterial Dysfunction Clinical Reasoning: No identified risk factors Cervical Myelopathy Diagnostic Rule: No identified risk factors. Red Flags - Cervical Cancer Clinical Reasoning: No identified risk factors. Infection Clinical Reasoning: No identified risk factors. Cervical Arterial Dysfunction Clinical Reasoning: No identified risk factors Cervical Myelopathy Diagnostic Rule: No identified risk factors. Spine History Symptoms Since Onset: Worsening Pain is Worse Always: On the Move Pain is Better Always: Rest Sleep Affected by Pain: Not affected by pain Pain: Pain Pain Level: 0 Pain Location: Shoulder - Right Description: Aching Frequency: With movement Post Treatment Pain Post Treatment Pain Level: No Change Post Treatment Pain Location: Shoulder - Right PROMIS Scales 09/02/2024 Higher is Better Phys Func - Score 51 (within normal limits) Phys Func - Percentile 54 Self-Eff Symptom - Score 54 (Average) Self-Eff Symptom - Percentile 66 T-scores: mean of general population = 50. 5 points is clinically meaningfully difference Percentiles provide an indication of how the patient's score ranks in relation to the general population. Higher percentile rankings indicate better function/quality of life. 50th percentile is the average of the general population and indicates half of respondents had a worse score. OBJECTIVE MEASURES WITH LEVEL OF FUNCTION: Posture / Alignment Posture: Forward head, Increased thoracic kyphosis R Shoulder Alignment: Rounded shoulder, Elevated shoulder, Protracted scapula Shoulder Observations R Shoulder Palpation Tenderness: Acromion process Sensation - Upper Extremity UE Light Touch Sensation: Grossly Intact Spine Observations R Cervical Spine Palpation Tenderness: Suboccipitals, Paraspinals Sensation - Cervical Spine Cervical Spine Sensation: Grossly Intact Cervical Spine ROM Cervical ROM : Limitation AROM Cervical Protrusion AROM: Normal Cervical Retraction AROM: Major limitation Cervical Flexion AROM: Peripheralizing, Moderate limitation Cervical Extension AROM: Normal Cervical Side-Bend Right AROM: Normal Cervical Side-Bend Left AROM: Peripheralizing, Moderate limitation Cervical Rotation Right AROM: Normal Cervical Rotation Left AROM: Produces, Normal UE AROM R Shoulder Flex: 175 Degrees R Shoulder ABduction: 90 Degrees R Shoulder Internal Rotation (Functional): R iliac crest R Shoulder External Rotation (Functional): unable to touch her own R shoulder UE Flexibility Flexibility: Upper Trapezius, Levator Scapulae, Pectoral Muscles R Upper Trapezius Flexibilty Comments: limited R Levator Scapulae Flexibilty Comments: limited R Pectorals Comments: limited Special Tests - Shoulder Shoulder Special Tests: Pascual-Tony, Neer, Empty Can Empty Can: Right Positive Pascual-Tony: Right Positive Neer: Right Positive Education: Education Learning Preferences: Demonstration, Explanation, Performance, Printed Materials Barriers: None Learning/educational needs: Home exercise program, Posture Education Provided: Yes, see treatment interventions for education provided Education Provided To: Patient Education Mode/Type: Demonstration, Explanation/Discussion, Literature/Printed Materials, Performance Response to Education/Teach Back: States/Identifies, Return Demonstration TREATMENT: PT Treatment Interventions: Therapeutic Exercise, Self-Senior Living Management Evaluation Therapeutic Exercise: 1: *Access Code: [email or web address] URL: [email or web address] Date: 09/02/2024 Prepared by: Raya Castro Exercises - Seated Cervical Retraction - 2-3 x daily - 7 x weekly - 4 sets - 10 reps - Seated Scapular Retraction - 2-3 x daily - 7 x weekly - 2 sets - 20 reps Skilled Intervention: Patient was educated in proper exercise technique and purpose for exercises. Skilled judgment was used in selection of appropriate interventions. Provided written instruction for home exercise program to facilitate proper performance and compliance. Correct performance of therapeutic exercises was facilitated with verbal, visual, and tactile cuing. Educated patient on rationale for performing exercises in regards to decreasing fatigue , increase ease of ADL, and ROM and function . Patient education as noted. Self-Senior Living Management: 1: discussed posture Skilled Intervention: Skilled judgment in the selection of proper modification for activity of daily living/home management based on clinical presentation, deficits, and needs. Provided written instruction for activities of daily living techniques to facilitate proper performance and compliance. Reviewed patient specific diagnosis in relation to activities of daily living/home management. Activity progression based on professional judgement. Reviewed and educated patient on additions/changes for home program as noted above with an (*). Provided written instruction for home program to facilitate proper performance and compliance. Correct performance of home program was facilitated with verbal, visual, and tactile cueing. Billing * Evaluation Low Complexity: 1 Unit Therapeutic Exercise Treatment Minutes: 5 Self-Care/Home Management Treatment Minutes: 2 Skilled Treatment Time Minutes (timed and untimed codes): 27 Total Session Time (minutes): 27 Session Start Time : 09 Session Stop Time : 1024 Raya Ambriz PT documented in this encounter [facility] 09-02-2024 Note HNO ID: [id number] Author: RAYA AMBRIZ PT Service: ? Author Type: Physical Therapist Type: Progress Notes Filed: 09/02/2024 10:59 Note Text: Episode Visit Count: 1 Therapist That Will Accept/Oversee The Plan Of Care: Raya Ambriz Start of Care Date: 09/02/24 Onset Date: 09/02/22 Plan of Care Certification Date: 09/02/24 Next Certification Due Date: 10/14/24 Patient Identified by Name and Date of : Yes REHABILITATION AND SPORTS THERAPY PHYSICAL THERAPY EVALUATION PLAN OF CARE: Assessment: Maricruz Tejada presents with diagnosis of disorder of right rotator cuff that interferes with lifting, reaching behind back, reaching overhead, use hand with arm at shoulder level, sleeping, working . The patient presents with impairments in ADL's, flexibility, independence in exercise, joint mobility, overall function, patient reported outcome measures, posture, range of motion, strength, symptom management, and tissue tenderness. PROMIS? (Patient-Reported Outcomes Measurement Information System) scores were reviewed and identified as within normal limits. Prognosis for therapy is Good due to: current objective clinical presentation . The patient will benefit from skilled therapy services to meet the goals established for this plan of care as noted below. Goals for Episode of Care: established 09/02/24 [place] in home exercise program. Patient will decrease pain to 1-2/10 with functional activities to allow patient to improve tolerance for ADLs. Patient will increase active ROM of right shoulder abduction to 160 degrees or greater without increased symptoms to allow pt to to improve postural alignment and to improve performance of ADLs. Patient will increase flexibility of R UT and levator scapulae to WNL to improve ability to maintain proper posture, improve mechanics, and decrease pain. Perform reaching behind the back and overhead with decreased report of symptoms/pain in 6 weeks. Improve postural awareness. Patient Goals: reduce R shoulder pain Time Frame for Goals and Treatment : 10/28/24 Planned Interventions, Frequency, and Duration: Current Frequency: 2x/week Duration: 8 weeks Total Number of Visits Planned: 16 Planned Treatment Interventions: Therapeutic exercise (49056), Neuromuscular re-education (32175), Manual therapy (74877), Therapeutic activities (81250), Self-nursing home management (35041) PLAN FOR NEXT VISIT: Patient demonstrates good understanding of plan of care and treatment. The above goals and plan of care were discussed and agreed upon by patient/family. SUBJECTIVE: for chronic R neck and R shoulder pain that onset during 2 injuries in highschool. No improvement so pt. had it looked at. Pt. has had x2 cortisone injections so far which resulted in only some improvement. Takes OTC tylenol for pain, but this only helps a litte. Increases with use. Parital tear of distal supraspinatus per MRI. Mild tendinosis of the rotator cuff. 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 Infection Clinical Reasoning: No identified risk factors. Cervical Arterial Dysfunction Clinical Reasoning: No identified risk factors Cervical Myelopathy Diagnostic Rule: No identified risk factors. Red Flags - Cervical Cancer Clinical Reasoning: No identified risk factors. Infection Clinical Reasoning: No identified risk factors. Cervical Arterial Dysfunction Clinical Reasoning: No identified risk factors Cervical Myelopathy Diagnostic Rule: No identified risk factors. Spine History Symptoms Since Onset: Worsening Pain is Worse Always: On the Move Pain is Better Always: Rest Sleep Affected by Pain: Not affected by pain Pain: Pain Pain Level: 0 Pain Location: Shoulder - Right Description: Aching Frequency: With movement Post Treatment Pain Post Treatment Pain Level: No Change Post Treatment Pain Location: Shoulder - Right PROMIS Scales 09/02/2024 Higher is Better Phys Func - Score 51 (within normal limits) Phys Func - Percentile 54 Self-Eff Symptom - Score 54 (Average) Self-Eff Symptom - Percentile 66 T-scores: mean of general population = 50. 5 points is clinically meaningfully difference Percentiles provide an indication of how the patient's score ranks in relation to the general population. Higher percentile rankings indicate bet (more content not included)... [facility] 08-29-2024 Note HNO ID: [id number] Author: FEDERICO MONROY DO Service: ? Author Type: Physician Type: Progress Notes Filed: 08/29/2024 10:45 Note Text: SERVICE DATE: August 29, 2024 PCP: Celso Freire DO Subjective Patient ID: Maricruz is a 19 year old female. Chief Complaint: Patient presents with: 4 week post visit right shoulder pain - wants injection PAIN EVALUATION 08/29/2024 1032 Pain Level: 8 with movement Pain Location: Shoulder-Right Description: Sharp Duration Amount of Time: -- ongoing Frequency: Intermittent Intervention/Comfort measure: Reposition HPI Right shoulder pain continues. Review of Systems ACTIVE PROBLEM LIST Tabor's Fracture of Base of Metacarpal of Right Thumb Exercise-Induced Asthma Hearing Difficulty of Left Ear Acute Pharyngitis, Unspecified Animal-Manan Injured By Fall From Or Being Thrown From Horse in Noncollision Accident, Initial Encounter Abdominal Contusion Concussion With Brief (Less Than One Hour) Loss of Consciousness Derangement of Right Knee Knee Injury Sore Throat Strain of Neck Muscle Strain of Right Rotator Cuff Capsule Autonomic Dysfunction Hypertension, Essential Cervicalgia Migraine Without Aura and Without Status Migrainosus, Not Intractable Intractable Chronic Migraine Without Aura and Without Status Migrainosus PAST MEDICAL HISTORY Diagnosis Date Calculus of kidney Migraine headache with aura PMDD (premenstrual dysphoric disorder) 2019 Syncope and collapse PAST SURGICAL HISTORY Procedure Laterality Date INSERTION OF IUD 10/24/2021 removed 09/14/2023 PAST SURGICAL HISTORY OF removal of renal calculi via lithotrypsy PAST SURGICAL HISTORY OF 06/24/2014 PCP of right thumb UNLISTED PROCEDURE LACRIMAL SYSTEM 02/18/2004 DR WHEELER FAMILY HISTORY Problem Relation Age of Onset Hypertension Mother Started in mid-30's Hypertension Father No Known Problems Sister No Known Problems Brother Hypertension Maternal Grandmother Hypertension Maternal Grandfather Lipids Maternal Grandfather other (FIBROMYALGIA) Paternal Grandmother Social History Tobacco Use Smoking status: Never Smokeless tobacco: Never Vaping Use Vaping status: Never Used Substance Use Topics Alcohol use: No Comment: rare Drug use: No ALLERGIES Allergen Reactions Codeine Tramadol Itching, Other: See Comments Dizziness MEDICATIONS: baclofen 10 mg tablet Take 10 mg by mouth once daily as needed. metoprolol succinate ER (TOPROL XL) 100 mg Take 1 tablet by mouth once daily. norethindrone (AYGESTIN) 5 mg tablet Take 1 tablet by mouth once daily. PARoxetine (PAXIL) 10 mg tablet Take 1 tablet by mouth once daily. galcanezumab-gnlm (EMGALITY PEN) 120 mg/mL pen Inject 2 pens (240 mg) under the skin 1 time only for initial loading dose. Refrigerate. Do not shake. ubrogepant (UBRELVY) 100 mg tablet Take 1 tab at migraine onset. May repeat once in 2 hours as needed. DULoxetine (CYMBALTA) 60 mg capsule Take 1 capsule by mouth once daily. lisinopril (ZESTRIL) 5 mg tablet Take 1 tablet by mouth once daily. Cholecalciferol, Vitamin D3, 50 mcg (2,000 unit) cap Take 1 capsule by mouth once daily. etodolac (LODINE) 400 mg tablet Take 1 tablet by mouth two times a day. (Patient not taking: Reported on 08/29/2024) galcanezumab-gnlm (EMGALITY PEN) 120 mg/mL pen Inject 1 mL subcutaneously once every month. Refrigerate. Do not shake. Patient should start on June 04, 2024. [DISCONTINUED] Norethindrone Acet-Ethinyl Est (JUNEL 1/20, 21,) 1-20 mg-mcg per tablet Take 1 tablet by mouth once daily. Allergies, medications, past surgical history, family history and past medical history were reviewed per this encounter. Objective Ortho Exam Assessment/Plan ASSESSMENT Diagnosis No diagnosis found. No orders found for this visit on 08/29/24. PLAN MRI results reviewed. 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 PT orders entered Large Joint Arthro/Inj: R subacromial bursa Informed Consent Consent Obtained: Verbal Monroe Protocol SIGN IN TIME OUT 08/29/2024 10:44 AM The procedure site was prepped in the usual sterile fashion. Site: R subacromial bursa Medications: 6 mg betamethasone acetate-betamethasone sodium phosphate 6 mg/mL Anesthetics: 4 mL lidocaine (PF) 10 mg/mL (1 %); 4 mL BUPivacaine (PF) 0.5 % (5 mg/mL) Outcome: Tolerated well, no immediate complications Post-injection instructions were reviewed with the patient and the patient voiced understanding of these instructions. FOLLOW-UP: No follow-ups on file. SIGNATURE: Federico Monroy DO PATIENT NAME: Maricruz Tejada DATE: August 29, 2024 TIME: 10:41 AM [facility] 08-29-2024 History of Presen t illness Narrative Associated Order(s): Large Joint Arthro/Inj: R subacromial bursa Post-Procedure Diagnose(s): Rotator cuff disorder, right Images from the original note were not included. SERVICE DATE: August 29, 2024 PCP: Celso Freire DO Subjective Patient ID: Maricruz is a 19 year old female. Chief Complaint: Patient presents with: 4 week post visit right shoulder pain - wants injection PAIN EVALUATION 08/29/2024 1032 Pain Level: 8 with movement Pain Location: Shoulder-Right Description: Sharp Duration Amount of Time: -- ongoing Frequency: Intermittent Intervention/Comfort measure: Reposition HPI Right shoulder pain continues. \ Review of Systems ACTIVE PROBLEM LIST Tabor's Fracture of Base of Metacarpal of Right Thumb Exercise-Induced Asthma Hearing Difficulty of Left Ear Acute Pharyngitis, Unspecified Animal-Manan Injured By Fall From Or Being Thrown From Horse in Noncollision Accident, Initial Encounter Abdominal Contusion Concussion With Brief (Less Than One Hour) Loss of Consciousness Derangement of Right Knee Knee Injury Sore Throat Strain of Neck Muscle Strain of Right Rotator Cuff Capsule Autonomic Dysfunction Hypertension, Essential Cervicalgia Migraine Without Aura and Without Status Migrainosus, Not Intractable Intractable Chronic Migraine Without Aura and Without Status Migrainosus PAST MEDICAL HISTORY Diagnosis Date Calculus of kidney Migraine headache with aura PMDD (premenstrual dysphoric disorder) 2019 Syncope and collapse PAST SURGICAL HISTORY Procedure Laterality Date INSERTION OF IUD 10/24/2021 removed 09/14/2023 PAST SURGICAL HISTORY OF removal of renal calculi via lithotrypsy PAST SURGICAL HISTORY OF 06/24/2014 PCP of right thumb UNLISTED PROCEDURE LACRIMAL SYSTEM 02/18/2004 DR WHEELER FAMILY HISTORY Problem Relation Age of Onset Hypertension Mother Started in mid-30's Hypertension Father No Known Problems Sister No Known Problems Brother Hypertension Maternal Grandmother Hypertension Maternal Grandfather Lipids Maternal Grandfather other (FIBROMYALGIA) Paternal Grandmother Social History Tobacco Use Smoking status: Never Smokeless tobacco: Never Vaping Use Vaping status: Never Used Substance Use Topics Alcohol use: No Comment: rare Drug use: No ALLERGIES Allergen Reactions Codeine Tramadol Itching, Other: See Comments Dizziness MEDICATIONS: baclofen 10 mg tablet Take 10 mg by mouth once daily as needed. metoprolol succinate ER (TOPROL XL) 100 mg Take 1 tablet by mouth once daily. norethindrone (AYGESTIN) 5 mg tablet Take 1 tablet by mouth once daily. PARoxetine (PAXIL) 10 mg tablet Take 1 tablet by mouth once daily. galcanezumab-gnlm (EMGALITY PEN) 120 mg/mL pen Inject 2 pens (240 mg) under the skin 1 time only for initial loading dose. Refrigerate. Do not shake. ubrogepant (UBRELVY) 100 mg tablet Take 1 tab at migraine onset. May repeat once in 2 hours as needed. DULoxetine (CYMBALTA) 60 mg capsule Take 1 capsule by mouth once daily. lisinopril (ZESTRIL) 5 mg tablet Take 1 tablet by mouth once daily. Cholecalciferol, Vitamin D3, 50 mcg (2,000 unit) cap Take 1 capsule by mouth once daily. etodolac (LODINE) 400 mg tablet Take 1 tablet by mouth two times a day. (Patient not taking: Reported on 08/29/2024) galcanezumab-gnlm (EMGALITY PEN) 120 mg/mL pen Inject 1 mL subcutaneously once every month. Refrigerate. Do not shake. Patient should start on June 04, 2024. [DISCONTINUED] Norethindrone Acet-Ethinyl Est (,) 1-20 mg-mcg per tablet Take 1 tablet by mouth once daily. Allergies, medications, past surgical history, family history and past medical history were reviewed per this encounter. Objective Ortho Exam Assessment/Plan ASSESSMENT Diagnosis No diagnosis found. No orders found for this visit on 08/29/24. PLAN MRI results reviewed. 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 PT orders entered Large Joint Arthro/Inj: R subacromial bursa Informed Consent Consent Obtained: Verbal Monroe Protocol SIGN IN TIME OUT 08/29/2024 10:44 AM The procedure site was prepped in the usual sterile fashion. Site: R subacromial bursa Medications: 6 mg betamethasone acetate-betamethasone sodium phosphate 6 mg/mL Anesthetics: 4 mL lidocaine (PF) 10 mg/mL (1 %); 4 mL BUPivacaine (PF) 0.5 % (5 mg/mL) Outcome: Tolerated well, no immediate complications Post-injection instructions were reviewed with the patient and the patient voiced understanding of these instructions. FOLLOW-UP: No follow-ups on file. SIGNATURE: Federico Monroy DO PATIENT NAME: Maricruz Tejada DATE: August 29, 2024 TIME: 10:41 AM AMB ROOMING INTAKE FLOWSHEET DATA Pain Pain Level: 8 (with movement) Pain Location: Shoulder-Right Description: Sharp Duration Amount of Time: (ongoing) Frequency: Intermittent Intervention/Comfort measure: Reposition documented in this encounter [facility] 08-29-2024 Note HNO ID: [id number] Author: DAISY BENNETT MA Service: ? Author Type: Cable Way Operator Type: Progress Notes Filed: 08/29/2024 10:45 Note Text: AMB ROOMING INTAKE FLOWSHEET DATA Pain Pain Level: 8 (with movement) Pain Location: Shoulder-Right Description: Sharp Duration Amount of Time: (ongoing) Frequency: Intermittent Intervention/Comfort measure: Reposition [facility] 08-15-2024 Telephone encounter Note Please contact the patient and assist with PT appointment. Thank you. [facility] 08-15-2024 Miscellaneous Notes Please contact the patient and assist with PT appointment. Thank you. PT order entered I called and spoke with the patient. Message from Dr. Monroy given. She has been scheduled for an appointment for an injection and she would like to go ahead and proceed with PT. Please place order. ----- Message from Federico Monroy DO sent at 08/12/2024 2:43 PM EDT ----- MRI of shoulder showed inflammation of the rotator cuff tendon and bursa, with fraying and partial tearing of one of the cuff tendons (supraspinatus). Not usually a surgical issue, but would definitely benefit from Physical Therapy, possibly a repeat injection. documented in this encounter [facility] 08-15-2024 Telephone encounter Note PT order entered [facility] 08-15-2024 Telephone encounter Note I called and spoke with the patient. Message from Dr. Monroy given. She has been scheduled for an appointment for an injection and she would like to go ahead and proceed with PT. Please place order. [facility] 08-15-2024 Telephone encounter Note ----- Message from Federico Monroy DO sent at 08/12/2024 2:43 PM EDT ----- MRI of shoulder showed inflammation of the rotator cuff tendon and bursa, with fraying and partial tearing of one of the cuff tendons (supraspinatus). Not usually a surgical issue, but would definitely benefit from Physical Therapy, possibly a repeat injection. [facility] 08-01-2024 Note HNO ID: [id number] Author: FEDERICO MONROY DO Service: ? Author Type: Physician Type: Progress Notes Filed: 08/01/2024 11:18 Note Text: SERVICE DATE: August 01, 2024 PCP: Celso Freire DO Subjective Patient ID: Maricruz is a 19 year old female. Chief Complaint: Patient presents with: 7 month post visit right shoulder pain PAIN EVALUATION 08/01/2024 1104 Pain Level: 8 with movement away from body Pain Location: Shoulder-Right Description: Sharp;Other: See comment popping Duration Amount of Time: -- ongoing Frequency: Intermittent Intervention/Comfort measure: Medication;Cold;Heat HPI Patient presents today for follow-up chronic right shoulder pain and instability. Last seen here 7 months ago. At that time she received a cortisone injection which she states helped with pain but not with instability symptoms. She has since had at least 1 episode where she felt her shoulder sublux requiring her to go to urgent care for evaluation and treatment. She continues to have painful range of motion as well as a feeling of shoulder laxity. Review of Systems ACTIVE PROBLEM LIST Tabor's Fracture of Base of Metacarpal of Right Thumb Exercise-Induced Asthma Hearing Difficulty of Left Ear Acute Pharyngitis, Unspecified Animal-Manan Injured By Fall From Or Being Thrown From Horse in Noncollision Accident, Initial Encounter Abdominal Contusion Concussion With Brief (Less Than One Hour) Loss of Consciousness Derangement of Right Knee Knee Injury Sore Throat Strain of Neck Muscle Strain of Right Rotator Cuff Capsule Autonomic Dysfunction Hypertension, Essential Cervicalgia Migraine Without Aura and Without Status Migrainosus, Not Intractable Intractable Chronic Migraine Without Aura and Without Status Migrainosus PAST MEDICAL HISTORY Diagnosis Date Calculus of kidney Migraine headache with aura PMDD (premenstrual dysphoric disorder) 2019 Syncope and collapse PAST SURGICAL HISTORY Procedure Laterality Date INSERTION OF IUD 10/24/2021 removed 09/14/2023 PAST SURGICAL HISTORY OF removal of renal calculi via lithotrypsy PAST SURGICAL HISTORY OF 06/24/2014 PCP of right thumb UNLISTED PROCEDURE LACRIMAL SYSTEM 02/18/2004 DR WHEELER FAMILY HISTORY Problem Relation Age of Onset Hypertension Mother Started in mid-30's Hypertension Father No Known Problems Sister No Known Problems Brother Hypertension Maternal Grandmother Hypertension Maternal Grandfather Lipids Maternal Grandfather other (FIBROMYALGIA) Paternal Grandmother Social History Tobacco Use Smoking status: Never Smokeless tobacco: Never Vaping Use Vaping status: Never Used Substance Use Topics Alcohol use: No Comment: rare Drug use: No ALLERGIES Allergen Reactions Codeine Tramadol Itching, Other: See Comments Dizziness MEDICATIONS: metoprolol succinate ER (TOPROL XL) 100 mg Take 1 tablet by mouth once daily. norethindrone (AYGESTIN) 5 mg tablet Take 1 tablet by mouth once daily. PARoxetine (PAXIL) 10 mg tablet Take 1 tablet by mouth once daily. galcanezumab-gnlm (EMGALITY PEN) 120 mg/mL pen Inject 2 pens (240 mg) under the skin 1 time only for initial loading dose. Refrigerate. Do not shake. galcanezumab-gnlm (EMGALITY PEN) 120 mg/mL pen Inject 1 mL subcutaneously once every month. Refrigerate. Do not shake. Patient should start on June 04, 2024. ubrogepant (UBRELVY) 100 mg tablet Take 1 tab at migraine onset. May repeat once in 2 hours as needed. DULoxetine (CYMBALTA) 60 mg capsule Take 1 capsule by mouth once daily. lisinopril (ZESTRIL) 5 mg tablet Take 1 tablet by mouth once daily. Cholecalciferol, Vitamin D3, 50 mcg (2,000 unit) cap Take 1 capsule by mouth once daily. etodolac (LODINE) 400 mg tablet Take 1 tablet by mouth two times a day. [DISCONTINUED] Norethindrone Acet-Ethinyl Est (,) 1-20 mg-mcg per tablet Take 1 tablet by mouth once daily. Allergies, medications, past surgical history, family history and past medical history were reviewed per this encounter. Objective Ortho Exam 19-year-old female in no acute distress. Alert pleasant cooperative exam. Range of motion shows restriction with abduction and external rotation of the right shoulder. There is laxity with AP translation of the right shoulder at the glenohumeral joint. There is difficulty with resisting secondary to pain with rotator cuff strength testing. No focal sensory neural deficits noted. Assessment/Plan ASSESSMENT Diagnosis (M25.311) Instability of right shoulder joint (primary encounter diagnosis) Plan: MRI SHOULDER WO IVCON RIGHT Office Visit on 08/01/24 MRI SHOULDER WO IVCON RIGHT PLAN Based on patient's history symptoms and exam findings, I suspect a glenoid labrum tear. MRI is ordered for further evaluation. Patient's request for medication is as follows Requested Prescriptions Signed Prescriptions Disp Refills e (more content not included)... [facility] 08-01-2024 History of Presen t illness Narrative Images from the original note were not included. SERVICE DATE: August 01, 2024 PCP: Celso Freire DO Subjective Patient ID: Maricruz is a 19 year old female. Chief Complaint: Patient presents with: 7 month post visit right shoulder pain PAIN EVALUATION 08/01/2024 1104 Pain Level: 8 with movement away from body Pain Location: Shoulder-Right Description: Sharp;Other: See comment popping Duration Amount of Time: -- ongoing Frequency: Intermittent Intervention/Comfort measure: Medication;Cold;Heat HPI Patient presents today for follow-up chronic right shoulder pain and instability. Last seen here 7 months ago. At that time she received a cortisone injection which she states helped with pain but not with instability symptoms. She has since had at least 1 episode where she felt her shoulder sublux requiring her to go to urgent care for evaluation and treatment. She continues to have painful range of motion as well as a feeling of shoulder laxity. Review of Systems ACTIVE PROBLEM LIST Tabor's Fracture of Base of Metacarpal of Right Thumb Exercise-Induced Asthma Hearing Difficulty of Left Ear Acute Pharyngitis, Unspecified Animal-Manan Injured By Fall From Or Being Thrown From Horse in Noncollision Accident, Initial Encounter Abdominal Contusion Concussion With Brief (Less Than One Hour) Loss of Consciousness Derangement of Right Knee Knee Injury Sore Throat Strain of Neck Muscle Strain of Right Rotator Cuff Capsule Autonomic Dysfunction Hypertension, Essential Cervicalgia Migraine Without Aura and Without Status Migrainosus, Not Intractable Intractable Chronic Migraine Without Aura and Without Status Migrainosus PAST MEDICAL HISTORY Diagnosis Date Calculus of kidney Migraine headache with aura PMDD (premenstrual dysphoric disorder) 2019 Syncope and collapse PAST SURGICAL HISTORY Procedure Laterality Date INSERTION OF IUD 10/24/2021 removed 09/14/2023 PAST SURGICAL HISTORY OF removal of renal calculi via lithotrypsy PAST SURGICAL HISTORY OF 06/24/2014 PCP of right thumb UNLISTED PROCEDURE LACRIMAL SYSTEM 02/18/2004 DR WHEELER FAMILY HISTORY Problem Relation Age of Onset Hypertension Mother Started in mid-30's Hypertension Father No Known Problems Sister No Known Problems Brother Hypertension Maternal Grandmother Hypertension Maternal Grandfather Lipids Maternal Grandfather other (FIBROMYALGIA) Paternal Grandmother Social History Tobacco Use Smoking status: Never Smokeless tobacco: Never Vaping Use Vaping status: Never Used Substance Use Topics Alcohol use: No Comment: rare Drug use: No ALLERGIES Allergen Reactions Codeine Tramadol Itching, Other: See Comments Dizziness MEDICATIONS: metoprolol succinate ER (TOPROL XL) 100 mg Take 1 tablet by mouth once daily. norethindrone (AYGESTIN) 5 mg tablet Take 1 tablet by mouth once daily. PARoxetine (PAXIL) 10 mg tablet Take 1 tablet by mouth once daily. galcanezumab-gnlm (EMGALITY PEN) 120 mg/mL pen Inject 2 pens (240 mg) under the skin 1 time only for initial loading dose. Refrigerate. Do not shake. galcanezumab-gnlm (EMGALITY PEN) 120 mg/mL pen Inject 1 mL subcutaneously once every month. Refrigerate. Do not shake. Patient should start on June 04, 2024. ubrogepant (UBRELVY) 100 mg tablet Take 1 tab at migraine onset. May repeat once in 2 hours as needed. DULoxetine (CYMBALTA) 60 mg capsule Take 1 capsule by mouth once daily. lisinopril (ZESTRIL) 5 mg tablet Take 1 tablet by mouth once daily. Cholecalciferol, Vitamin D3, 50 mcg (2,000 unit) cap Take 1 capsule by mouth once daily. etodolac (LODINE) 400 mg tablet Take 1 tablet by mouth two times a day. [DISCONTINUED] Norethindrone Acet-Ethinyl Est (,) 1-20 mg-mcg per tablet Take 1 tablet by mouth once daily. Allergies, medications, past surgical history, family history and past medical history were reviewed per this encounter. Objective Ortho Exam 19-year-old female in no acute distress. Alert pleasant cooperative exam. Range of motion shows restriction with abduction and external rotation of the right shoulder. There is laxity with AP translation of the right shoulder at the glenohumeral joint. There is difficulty with resisting secondary to pain with rotator cuff strength testing. No focal sensory neural deficits noted. Assessment/Plan ASSESSMENT Diagnosis (M25.311) Instability of right shoulder joint (primary encounter diagnosis) Plan: MRI SHOULDER WO IVCON RIGHT Office Visit on 08/01/24 MRI SHOULDER WO IVCON RIGHT PLAN Based on patient's history symptoms and exam findings, I suspect a glenoid labrum tear. MRI is ordered for further evaluation. Patient's request for medication is as follows Requested Prescriptions Signed Prescriptions Disp Refills etodolac (LODINE) 400 mg tablet 60 tablet 0 Sig: Take 1 tablet by mouth two times a day. Order entered - please phone pharmacy and notify patient. Federico Monroy DO FOLLOW-UP: No follow-ups on file. SIGNATURE: Federico Monroy DO PATIENT NAME: Maricruz Tejada DATE: August 01, 2024 TIME: 11:15 AM AMB ROOMING INTAKE FLOWSHEET DATA Pain Pain Level: 8 (with movement away from body) Pain Location: Shoulder-Right Description: Sharp, Other: See comment (popping) Duration Amount of Time: (ongoing) Frequency: Intermittent Intervention/Comfort measure: Medication, Cold, Heat documented in this encounter [facility] 08-01-2024 Note HNO ID: [id number] Author: DAISY BENNETT MA Service: ? Author Type: Cable Way Operator Type: Progress Notes Filed: 08/01/2024 11:18 Note Text: AMB ROOMING INTAKE FLOWSHEET DATA Pain Pain Level: 8 (with movement away from body) Pain Location: Shoulder-Right Description: Sharp, Other: See comment (popping) Duration Amount of Time: (ongoing) Frequency: Intermittent Intervention/Comfort measure: Medication, Cold, Heat [facility] 07-24-2024 Telephone encounter Note Pt informed, verbalized understanding Naomy Rivers MA [facility] 07-24-2024 Miscellaneous Notes Pt informed, verbalized understanding Naomy Rivers MA Please let Maricruz know that I was able to speak with Dr. Tovar with cardiology, and he agrees that we should increase her metoprolol to 100mg daily. I'll send this increase in for her. The following approved medication requests have been transmitted electronically. Requested Prescriptions Signed Prescriptions Disp Refills metoprolol succinate ER (TOPROL XL) 100 mg 30 tablet 2 Sig: Take 1 tablet by mouth once daily. Authorizing Provider: KELSI BERMUDEZ APRN.CNP documented in this encounter [facility] 07-24-2024 Telephone encounter Note Please let Maricruz know that I was able to speak with Dr. Tovar with cardiology, and he agrees that we should increase her metoprolol to 100mg daily. I'll send this increase in for her. The following approved medication requests have been transmitted electronically. Requested Prescriptions Signed Prescriptions Disp Refills metoprolol succinate ER (TOPROL XL) 100 mg 30 tablet 2 Sig: Take 1 tablet by mouth once daily. Authorizing Provider: KELSI BERMUDEZ APRN.CNP [facility] 07-15-2024 Instructions Kelsi Bermudez APRN.CNP - 07/15/2024 8:58 AM EDT Schedule with Dr. Monroy for your shoulder. documented in this encounter [facility] 07-15-2024 Note HNO ID: [id number] Author: KELSI BERMUDEZ APRN.CNP Service: ? Author Type: Nurse Practitioner Type: Progress Notes Filed: 07/15/2024 15:44 Note Text: Chief Complaint Patient presents with: Blood Pressure Check HPI Maricruz Tejada is a 19 year old female who presents here today for Above Complaints. Home BP has been 140-150/90-100's. Was sick for a while. Hasn't been overly stressed. Continues with some palpitations. Notices that her BP goes up and she feels somewhat lightheaded. Sx last about 30-60 minutes, actual palpitations last about 3 minutes. Happens when she is active-such as walking on treadmill or moving positions from couch to walking, about 3x per week. Has hx ADHD. Wondering if she goes back to school if she would be able to get started back on her Adderall. Has seen Dr. Monroy orthopedics in the past for her right shoulder pain. Would like to see him again for possible further tx. Past medical history, appointments, medications, allergies reviewed. Previous Medical History PAST MEDICAL HISTORY No date: Calculus of kidney No date: Migraine headache with aura 2019: PMDD (premenstrual dysphoric disorder) No date: Syncope and collapse Previous Surgical History PAST SURGICAL HISTORY 10/24/2021: INSERTION OF IUD Comment: removed 09/14/2023 No date: PAST SURGICAL HISTORY OF Comment: removal of renal calculi via lithotrypsy 06/24/2014: PAST SURGICAL HISTORY OF Comment: PCP of right thumb 02/18/2004: UNLISTED PROCEDURE LACRIMAL SYSTEM Comment: DR WHEELER Family History FAMILY HISTORY Problem Relation Age of Onset Hypertension Mother Started in mid-30's Hypertension Father No Known Problems Sister No Known Problems Brother Hypertension Maternal Grandmother Hypertension Maternal Grandfather Lipids Maternal Grandfather other (FIBROMYALGIA) Paternal Grandmother Patient Allergies ALLERGIES Allergen Reactions Codeine Tramadol Itching, Other: See Comments Dizziness Current Medications Current Outpatient Medications on File Prior to Visit Medication Sig norethindrone (AYGESTIN) 5 mg tablet Take 1 tablet by mouth once daily. PARoxetine (PAXIL) 10 mg tablet Take 1 tablet by mouth once daily. galcanezumab-gnlm (EMGALITY PEN) 120 mg/mL pen Inject 2 pens (240 mg) under the skin 1 time only for initial loading dose. Refrigerate. Do not shake. galcanezumab-gnlm (EMGALITY PEN) 120 mg/mL pen Inject 1 mL subcutaneously once every month. Refrigerate. Do not shake. Patient should start on June 04, 2024. ubrogepant (UBRELVY) 100 mg tablet Take 1 tab at migraine onset. May repeat once in 2 hours as needed. DULoxetine (CYMBALTA) 60 mg capsule Take 1 capsule by mouth once daily. metoprolol succinate ER (TOPROL XL) 50 mg 24 hr tablet Take 1.5 tablets by mouth once daily. lisinopril (ZESTRIL) 5 mg tablet Take 1 tablet by mouth once daily. Cholecalciferol, Vitamin D3, 50 mcg (2,000 unit) cap Take 1 capsule by mouth once daily. sodium chloride (SALINE MIST) 0.65 % nasal spray Use 1 [place] in the nose two times a day. (Patient not taking: Reported on 07/15/2024) [DISCONTINUED] Norethindrone Acet-Ethinyl Est (,) 1-20 mg-mcg per tablet Take 1 tablet by mouth once daily. No current facility-administered medications on file prior to visit. Social History Social History Tobacco Use Smoking status: Never Smokeless tobacco: Never Vaping Use Vaping status: Never Used Substance Use Topics Alcohol use: No Comment: rare Drug use: No Review of Symptoms REVIEW OF SYSTEMS See HPI, otherwise negative EXAM: BP 116/86 (BP Site: Left Arm, BP Position: Sitting, BP Cuff Size: Regular Adult) Pulse 71 Wt 66.9 kg (147 lb 6.4 oz) LMP 05/02/2024 (Within Days) SpO2 98% BMI 26.11 kg/m? General Appearance: Well appearing, alert, in no acute distress, well-hydrated, well nourished.. Lungs: Lungs clear to auscultation. No wheezing, rhonchi, rales.. Heart: RRR without murmur, gallop, or rubs. No ectopy. Psychiatric: pleasant, cooperative. Health Maintenance List Asthma Action Plan Never done Asthma Control Test Never done Meningococcal B Vaccine: Consider Based On Risk(1 of 2 - Patient Seeks Protection) Never done Spirometry Never done Depression Screening Never done Anxiety Screening Never done Hepatitis C Screening Never done HIV Screening Never done BP Controlled (<130/80) Never done Cervical Cancer Screening Never done Covid-19 Vaccine(1 - 2022- season) due on 04/11/2025 Influenza Vaccine(1) due on 07/20/2024 GC (Gonorrhea) Screening (18-) due on 09/12/2024 Chlamydia Screening (18-24) due on 09/12/2024 Annual PCP Team Chronic Disease Visit due on 06/18/2025 DTaP,Tdap,Td Vaccine(7 - Td or Tdap) due on 09/22/2025 Hepatitis B Vaccine Completed HPV Vaccine Completed Data reviewed Previous records, office notes ASSESSMENT/PLAN: 1. Hypertension, essential - ICD9: 401.9, ICD10: I10 (primary (more content not included)... [facility] 07-15-2024 History of Presen t illness Narrative Chief Complaint Patient presents with: Blood Pressure Check HPI Maricruz Tejada is a 19 year old female who presents here today for Above Complaints. Home BP has been 140-150/90-100's. Was sick for a while. Hasn't been overly stressed. Continues with some palpitations. Notices that her BP goes up and she feels somewhat lightheaded. Sx last about 30-60 minutes, actual palpitations last about 3 minutes. Happens when she is active-such as walking on treadmill or moving positions from couch to walking, about 3x per week. Has hx ADHD. Wondering if she goes back to school if she would be able to get started back on her Adderall. Has seen Dr. Monroy orthopedics in the past for her right shoulder pain. Would like to see him again for possible further tx. Past medical history, appointments, medications, allergies reviewed. Previous Medical History PAST MEDICAL HISTORY No date: Calculus of kidney No date: Migraine headache with aura 2019: PMDD (premenstrual dysphoric disorder) No date: Syncope and collapse Previous Surgical History PAST SURGICAL HISTORY 10/24/2021: INSERTION OF IUD Comment: removed 09/14/2023 No date: PAST SURGICAL HISTORY OF Comment: removal of renal calculi via lithotrypsy 06/24/2014: PAST SURGICAL HISTORY OF Comment: PCP of right thumb 02/18/2004: UNLISTED PROCEDURE LACRIMAL SYSTEM Comment: DR WHEELER Family History FAMILY HISTORY Problem Relation Age of Onset Hypertension Mother Started in mid-30's Hypertension Father No Known Problems Sister No Known Problems Brother Hypertension Maternal Grandmother Hypertension Maternal Grandfather Lipids Maternal Grandfather other (FIBROMYALGIA) Paternal Grandmother Patient Allergies ALLERGIES Allergen Reactions Codeine Tramadol Itching, Other: See Comments Dizziness Current Medications Current Outpatient Medications on File Prior to Visit Medication Sig norethindrone (AYGESTIN) 5 mg tablet Take 1 tablet by mouth once daily. PARoxetine (PAXIL) 10 mg tablet Take 1 tablet by mouth once daily. galcanezumab-gnlm (EMGALITY PEN) 120 mg/mL pen Inject 2 pens (240 mg) under the skin 1 time only for initial loading dose. Refrigerate. Do not shake. galcanezumab-gnlm (EMGALITY PEN) 120 mg/mL pen Inject 1 mL subcutaneously once every month. Refrigerate. Do not shake. Patient should start on June 04, 2024. ubrogepant (UBRELVY) 100 mg tablet Take 1 tab at migraine onset. May repeat once in 2 hours as needed. DULoxetine (CYMBALTA) 60 mg capsule Take 1 capsule by mouth once daily. metoprolol succinate ER (TOPROL XL) 50 mg 24 hr tablet Take 1.5 tablets by mouth once daily. lisinopril (ZESTRIL) 5 mg tablet Take 1 tablet by mouth once daily. Cholecalciferol, Vitamin D3, 50 mcg (2,000 unit) cap Take 1 capsule by mouth once daily. sodium chloride (SALINE MIST) 0.65 % nasal spray Use 1 [place] in the nose two times a day. (Patient not taking: Reported on 07/15/2024) [DISCONTINUED] Norethindrone Acet-Ethinyl Est (JUNE12/08, ,) 1-20 mg-mcg per tablet Take 1 tablet by mouth once daily. No current facility-administered medications on file prior to visit. Social History Social History Tobacco Use Smoking status: Never Smokeless tobacco: Never Vaping Use Vaping status: Never Used Substance Use Topics Alcohol use: No Comment: rare Drug use: No Review of Symptoms REVIEW OF SYSTEMS See HPI, otherwise negative EXAM: BP 116/86 (BP Site: Left Arm, BP Position: Sitting, BP Cuff Size: Regular Adult) Pulse 71 Wt 66.9 kg (147 lb 6.4 oz) LMP 05/02/2024 (Within Days) SpO2 98% BMI 26.11 kg/m General Appearance: Well appearing, alert, in no acute distress, well-hydrated, well nourished.. Lungs: Lungs clear to auscultation. No wheezing, rhonchi, rales.. Heart: RRR without murmur, gallop, or rubs. No ectopy. Psychiatric: pleasant, cooperative. Health Maintenance List Asthma Action Plan Never done Asthma Control Test Never done Meningococcal B Vaccine: Consider Based On Risk(1 of 2 - Patient Seeks Protection) Never done Spirometry Never done Depression Screening Never done Anxiety Screening Never done Hepatitis C Screening Never done HIV Screening Never done BP Controlled (<130/80) Never done Cervical Cancer Screening Never done Covid-19 Vaccine(1 - 2022- season) due on 04/11/2025 Influenza Vaccine(1) due on 07/20/2024 GC (Gonorrhea) Screening (18-24) due on 09/12/2024 Chlamydia Screening (18-24) due on 09/12/2024 Annual PCP Team Chronic Disease Visit due on 06/18/2025 DTaP,Tdap,Td Vaccine(7 - Td or Tdap) due on 09/22/2025 Hepatitis B Vaccine Completed HPV Vaccine Completed Data reviewed Previous records, office notes ASSESSMENT/PLAN: 1. Hypertension, essential - ICD9: 401.9, ICD10: I10 (primary diagnosis) - Controlled in office States home BP elevated, see above, as well as palpitations. No changes in medication today, but will contact cardiology for recommendations-possibly increasing metoprolol from 75mg to 100mg daily? - Continue current medications - Recommend home blood pressure monitoring, to bring results to next visit - Encouraged sodium restriction, DASH or Mediterranean diet - Recommend regular aerobic exercise 2. Palpitations - ICD9: 785.1, ICD10: R00.2 - Controlled in office States home BP elevated, see above, as well as palpitations. No changes in medication today, but will contact cardiology for recommendations-possibly increasing metoprolol from 75mg to 100mg daily? - Continue current medications - Recommend home blood pressure monitoring, to bring results to next visit - Encouraged sodium restriction, DASH or Mediterranean diet - Recommend regular aerobic exercise 3. Acute pain of right shoulder - ICD9: 719.41, ICD10: M25.[address] Monroy for f/u. Kelsi Bermudez APRN.SENIOR ACCOUNT CLERK documented in this encounter [facility] 06-24-2024 History of Presen t illness Narrative Episode Visit Count: 2 Therapist That Will Accept/Oversee The Plan Of Care: Franco Tao Start of Care Date: 05/05/24 Onset Date: 12/20/21 Plan of Care Certification Date: (NA, private insurance) Patient Identified by Name and Date of : Yes [facility] SPEECH THERAPY PROGRESS REPORT PLAN OF CARE UPDATE: Impression: Communication deficits identified: Cognitive-Linguistic deficits Progress Toward Goals: Progressing as expected Functional gains: Increased use of compensatory strategies and increased cognitive linguistic skills Goals for Episode of Care Updated: 06/24/2024 Goals for Episode of Care: created on 05/05/2024 through 06/16/24 EXPRESSIVE LANGUAGE GOALS Demonstrate the use of taught strategies for effective communication during conversations 90% of the time with minimal cues. Semantic feature analysis 100% and written copy provided. Continue with goal. Progressing/goal partially achieved. All goals to target the patient's overall ability to facilitate functional communication of ADL medical / social needs. COGNITIVE GOALS Improve categorical naming tasks at a concrete and abstract level with 90% accuracy given minimal assist. Goal not yet addressed. Complete visual reasoning/organization tasks with 90% accuracy given minimal assist. Goal not yet addressed. Improve short term/prospective memory to 90% accuracy with use of compensatory strategies with minimal assist/cues.Immediate recall of unrelated pictures with repetition, association and/or visualization 100%. Recall in 5-7 minutes 100%. Will increase length or complexity. Progressing/goal partially achieved. Improve working memory to WFL during complex cognitive tasks with 90% using compensatory strategies in order to recall the steps taken during a cognitive process.3/4 word in order 100%. Continue to test. Progressing/goal partially achieved. Improve alternating and divided attention per auditory/visual cognitive tasks to 90% accuracy in order to demonstrate improved divide and alternate attention between multiple tasks within the clinical environment. Alternating between naming items based on the first letter of a color and naming an item with the same letter. 100% with increased word retrieval time. Continue to test. Progressing/goal partially achieved. All goals to target the patient's overall ability to facilitate functional cognitive linguistic skills. READING GOALS Demonstrate reading comprehension at paragraph level with 90% effectiveness given minimal cues. Goal not yet addressed. All goals to target the patient's ability to comprehend the written word for effective communication of ADL medical /soci RECOMMENDATION: Planned Interventions, Frequency, and Duration: Follow up for one visit(s) per week for six weeks for Individual skilled ST services Cognitive-Linguistic Training Expressive Language Training Receptive Language Training Goals/ Plan Reviewed by Patient and Family Patient / Family express agreement with goals BUHR MILL OPERATOR Recommendations: Outpatient Speech Therapy Results and Recommendations Discussed With: Patient Planned Interventions, Frequency, and Duration: Planned Treatment Interventions: Cognitive-Linguistic Training ([id number], [id number], [id number]), Expressive Language Training ([id number], [id number]), Patient / Caregiver Education/ Training Current Frequency: 1x/week Duration: 6 weeks PLAN FOR NEXT VISIT: memory tasks/strategies, word finding, complex reasoning/attention SUBJECTIVE: Subjective: Maricruz arrived approximately 15 minutes late due to weather issues. OBJECTIVE MEASURES WITH LEVEL OF FUNCTION: TREATMENT: Speech/Language Therapy (31211): Skilled Intervention: Educated and instructed patient on compensatory strategies for word-finding Educated and instructed patient on memory recall strategies such as focused attention, verbal repetition, active repetition, visualization, and association. Provided verbal cues in auditory / verbal memory tasks and expressive language tasks. Current Home Program: Provided written and verbal educuation and home practice of semantic feature analysis Billing: Speech Treatment ([id number]) Total time / Length of visit: 30 minutes Session Start Time : 1632 Session Stop Time : 1702 Franco Tao CCC-BUHR MILL OPERATOR documented in this encounter [facility] 06-20-2024 Telephone encounter Note Rx sent. Emely Handy APRN.SENIOR ACCOUNT CLERK [facility] 06-20-2024 Miscellaneous Notes Rx sent. Emely Handy APRN.SENIOR ACCOUNT CLERK Patient needed this to go to [facility]. Please send in new RX. Thank you. Maritza Ching RN Rx sent. Emely Handy APRN.SENIOR ACCOUNT CLERK Patient called requesting 90 days supply of OCP. States the Slynd is not covered by her insurance. States RM sent in Aygestin in case the Slynd was not covered. Only 30 tablets were called in. Can you please send in a 90 days supply of OCP to [facility] pharmacy in [place]. Can send [email or web address] message with response. Maritza Ching RN documented in this encounter [facility] 06-20-2024 Telephone encounter Note Patient needed this to go to [facility]. Please send in new RX. Thank you. Maritza Ching RN [facility] 06-20-2024 Telephone encounter Note Rx sent. Emely Handy APRN.MAYA [facility] 06-20-2024 Telephone encounter Note Patient called requesting 90 days supply of OCP. States the Slynd is not covered by her insurance. States RM sent in Aygestin in case the Slynd was not covered. Only 30 tablets were called in. Can you please send in a 90 days supply of OCP to [facility] pharmacy in [place]. Can send [email or web address] message with response. Maritza Ching RN [facility] 06-18-2024 History of Presen t illness Narrative Chief Complaint Patient presents with: congestion, mil sore throat, left eye red , nasal congestio HPI Maricruz Tejada is a 19 year old female who presents here today for Above Complaints. Maricruz is an established patient of Dr. Freire, and myself. Concerns today... Dx with MONO and strep + in March. Sore throat improved but pt feels extremely fatigue since, like the mono never completely resolved. Now reports feeling throat pain, hard to swallow, congestion, cough, and earache is returning. Was seen in [facility] care on Sunday and dx with acute otitis media to bilateral ears and acute cough. No testing for strep. Given rx for z-liz and tessalon perles. Pt reports so far not feeling too much better. Woke up with L eye all red today, improving as the day goes on. Hx of HTN. Current regimen of metoprolol 75 mg daily and lisinopril 5 mg daily. Follows with cardiology. Pt reached out to them last month about elevated BP and this is when metoprolol was increased. She states compliant with current blood pressure medication(s). She does check BP at home occasionally. Average home readings: varies a lot per pt. She denies chest pain, shortness of breath, palpitations, dizziness, leg edema, headaches, or vision changes. Last 14 Encounter BP Readings: Date: BP: 06/18/2024 145/95 06/16/2024 122/70 05/06/2024 140/100 04/11/2024 132/68 03/31/2024 146/84 01/26/2024 142/90 12/15/2023 146/97 12/07/2023 138/96 11/29/2023 122/86 10/29/2023 126/90 10/04/2023 136/96[double check[ 09/20/2023 142/106 09/18/2023 148/88 09/14/2023 146/98 Past medical history, appointments, medications, allergies reviewed. Previous Medical History PAST MEDICAL HISTORY Diagnosis Date Calculus of kidney Migraine headache with aura PMDD (premenstrual dysphoric disorder) 2019 Syncope and collapse Previous Surgical History PAST SURGICAL HISTORY Procedure Laterality Date INSERTION OF IUD 10/24/2021 removed 09/14/2023 PAST SURGICAL HISTORY OF removal of renal calculi via lithotrypsy PAST SURGICAL HISTORY OF 06/24/2014 PCP of right thumb UNLISTED PROCEDURE LACRIMAL SYSTEM 02/18/2004 DR WHEELER Family History FAMILY HISTORY Problem Relation Age of Onset Hypertension Mother Started in mid-30's Hypertension Father No Known Problems Sister No Known Problems Brother Hypertension Maternal Grandmother Hypertension Maternal Grandfather Lipids Maternal Grandfather other (FIBROMYALGIA) Paternal Grandmother Patient Allergies ALLERGIES Allergen Reactions Codeine Tramadol Itching, Other: See Comments Dizziness Current Medications Current Outpatient Medications on File Prior to Visit Medication Sig sodium chloride (SALINE MIST) 0.65 % nasal spray Use 1 [place] in the nose two times a day. benzonatate (TESSALON PERLES) 100 mg capsule Take 1 capsule by mouth three times a day as needed for cough. azithromycin (ZITHROMAX) 250 mg tablet Take 2 tablets by mouth once daily for 1 day, THEN 1 tablet once daily for 4 days. norethindrone (AYGESTIN) 5 mg tablet Take 1 tablet by mouth once daily. PARoxetine (PAXIL) 10 mg tablet Take 1 tablet by mouth once daily. galcanezumab-gnlm (EMGALITY PEN) 120 mg/mL pen Inject 2 pens (240 mg) under the skin 1 time only for initial loading dose. Refrigerate. Do not shake. galcanezumab-gnlm (EMGALITY PEN) 120 mg/mL pen Inject 1 mL subcutaneously once every month. Refrigerate. Do not shake. Patient should start on June 04, 2024. drospirenone, contraceptive, (SLYND) 4 mg (28) tabet Take 1 tablet by mouth once daily. ubrogepant (UBRELVY) 100 mg tablet Take 1 tab at migraine onset. May repeat once in 2 hours as needed. DULoxetine (CYMBALTA) 60 mg capsule Take 1 capsule by mouth once daily. metoprolol succinate ER (TOPROL XL) 50 mg 24 hr tablet Take 1.5 tablets by mouth once daily. lisinopril (ZESTRIL) 5 mg tablet Take 1 tablet by mouth once daily. Cholecalciferol, Vitamin D3, 50 mcg (2,000 unit) cap Take 1 capsule by mouth once daily. [DISCONTINUED] Norethindrone Acet-Ethinyl Est (,) 1-20 mg-mcg per tablet Take 1 tablet by mouth once daily. Current Facility-Administered Medications on File Prior to Visit Medication perflutren lipid microspheres 1.3 mL in NaCl (PF) 0.9% 10 mL injection (DEFINITY) sodium chloride 0.9 % (flush) 10 mL (BD POSIFLUSH) Social History Social History Tobacco Use Smoking status: Never Smokeless tobacco: Never Vaping Use Vaping Use: Never used Substance Use Topics Alcohol use: No Comment: rare Drug use: No REVIEW OF SYSTEMS: as above Reviewed relevant PMHx, PSHx, Social Hx, current medications and allergies. Review of Symptoms REVIEW OF SYSTEMS See HPI. EXAM: BP 145/95 Pulse 94 Temp 37.3 C (99.1 F) Wt 67.3 kg (148 lb 6.4 oz) LMP 05/02/2024 (Within Days) SpO2 100% BMI 26.29 kg/m General Appearance: Well appearing, alert, in no acute distress, well-hydrated, well nourished.. Skin: Skin color, texture, turgor normal, no suspicious rashes or lesions. Head: Normocephalic, no masses, lesions, tenderness or abnormalities. Eyes: Anicteric sclera. Pupils are equally round and reactive to light. Extraocular movements are intact. . Nose/Sinuses: Nares normal, septum midline, mucosa normal, no drainage or sinus tenderness. Oropharynx: Lips, mucosa, and tongue normal, teeth and gums normal, oropharynx normal and Positive findings: moderate oropharyngeal erythema, tonsillar hypertrophy 3+. Neck: Supple, no adenopathy; thyroid symmetric, normal size, no bruits. Lungs: Lungs clear to auscultation. No wheezing, rhonchi, rales.. Heart: RRR without murmur, gallop, or rubs. No ectopy. Last 14 Encounter BP Readings: Date: BP: 06/18/2024 134/95[B/P TRUE[ 06/16/2024 122/70 05/06/2024 140/100 04/11/2024 132/68 03/31/2024 146/84 01/26/2024 142/90 12/15/2023 146/97 12/07/2023 138/96 11/29/2023 122/86 10/29/2023 126/90 10/04/2023 136/96[double check[ 09/20/2023 142/106 09/18/2023 148/88 09/14/2023 146/98 Health Maintenance List Asthma Action Plan Never done Asthma Control Test Never done Meningococcal B Vaccine: Consider Based On Risk(1 of 2 - Patient Seeks Protection) Never done Spirometry Never done Depression Screening Never done Anxiety Screening Never done Hepatitis C Screening Never done HIV Screening Never done Cervical Cancer Screening due on 2024 Covid-19 Vaccine(1 - 2022- season) due on 04/11/2025 Influenza Vaccine(1) due on 07/20/2024 GC (Gonorrhea) Screening (18-24) due on 09/12/2024 Chlamydia Screening (18-24) due on 09/12/2024 Annual PCP Team Chronic Disease Visit due on 04/11/2025 BP Controlled (<130/80) due on 06/16/2025 DTaP,Tdap,Td Vaccine(7 - Td or Tdap) due on 09/22/2025 Hepatitis B Vaccine Completed HPV Vaccine Completed ASSESSMENT/PLAN: 1. Sore throat - ICD9: 462, ICD10: J02.9 (primary diagnosis) Antibiotic given from [facility] will treat strep, no need to test now since already started anitbiotic. Given rx for medrol dose liz d/t significant tonsillar swelling. No reason to retest for mono at this time d/t + 2 months ago. Will likely still be positive. Discussed lingering fatigue related to this. 2. Acute cough - ICD9: 786.2, ICD10: R05.1 See above. 3. Hypertension, essential - ICD9: 401.9, ICD10: I10 - Worsening control BP was stable and WNL at [facility] visit 2 days ago. Elevation today may be related to acute illness and discomfort. Booker BP reading improved to 134/95. RTO in 2 weeks to reassess BP. Sooner if symptoms arise. - Continue current medications - Recommend home blood pressure monitoring, to bring results to next visit - Encouraged sodium restriction, DASH or Mediterranean diet - Recommend regular aerobic exercise - Follow up in 2 weeks for hypertension visit RTO in 2 weeks, sooner if needed. Prescription instructions reviewed with patient as applicable. Potential red flag symptoms discussed with the patient. Reviewed appropriate action plan to take if red flag symptoms occur. Patient agreeable to treatment plan. Little Garcia APRN.SENIOR ACCOUNT CLERK [address] [place] [address] documented in this encounter [facility] 06-16-2024 History of Presen t illness Narrative Images from the original note were not included. [facility] NOTE Subjective Maricruz Tejada is a 19 year old year old who presents to [facility] today with complaint of a productive cough/congestion and ear pressure/difficulty hearing over the past week, worsening. Denies headaches, fever, sore throat, shortness of breath, chest pains, Nausea, vomiting, changes in bowel or bladder or skin rashes. Taking OTC medications without improvement. Aside from symptoms as described above, patient has no other complaints at this time. HPI: see above Review of Systems Constitutional: Positive for fatigue. Negative for chills and fever. HENT: Positive for congestion, ear pain (pressure), postnasal drip and rhinorrhea. Negative for sinus pressure, sore throat and trouble swallowing. Eyes: Negative for pain, discharge and redness. Respiratory: Positive for cough. Negative for chest tightness, shortness of breath and wheezing. Cardiovascular: Negative for chest pain, palpitations and leg swelling. Gastrointestinal: Negative for diarrhea, nausea and vomiting. Genitourinary: Negative for dysuria, frequency and urgency. Musculoskeletal: Negative for myalgias. Skin: Negative for rash. Neurological: Negative for headaches. Hematological: Positive for adenopathy (front of neck- swollen glands). ALLERGIES Allergen Reactions Codeine Tramadol Itching, Other: See Comments Dizziness Current Outpatient Medications on File Prior to Visit Medication Sig norethindrone (AYGESTIN) 5 mg tablet Take 1 tablet by mouth once daily. PARoxetine (PAXIL) 10 mg tablet Take 1 tablet by mouth once daily. galcanezumab-gnlm (EMGALITY PEN) 120 mg/mL pen Inject 2 pens (240 mg) under the skin 1 time only for initial loading dose. Refrigerate. Do not shake. galcanezumab-gnlm (EMGALITY PEN) 120 mg/mL pen Inject 1 mL subcutaneously once every month. Refrigerate. Do not shake. Patient should start on June 04, 2024. drospirenone, contraceptive, (SLYND) 4 mg (28) tabet Take 1 tablet by mouth once daily. ubrogepant (UBRELVY) 100 mg tablet Take 1 tab at migraine onset. May repeat once in 2 hours as needed. DULoxetine (CYMBALTA) 60 mg capsule Take 1 capsule by mouth once daily. metoprolol succinate ER (TOPROL XL) 50 mg 24 hr tablet Take 1.5 tablets by mouth once daily. lisinopril (ZESTRIL) 5 mg tablet Take 1 tablet by mouth once daily. Cholecalciferol, Vitamin D3, 50 mcg (2,000 unit) cap Take 1 capsule by mouth once daily. [DISCONTINUED] Norethindrone Acet-Ethinyl Est (,) 1-20 mg-mcg per tablet Take 1 tablet by mouth once daily. Current Facility-Administered Medications on File Prior to Visit Medication perflutren lipid microspheres 1.3 mL in NaCl (PF) 0.9% 10 mL injection (DEFINITY) sodium chloride 0.9 % (flush) 10 mL (BD POSIFLUSH) ACTIVE PROBLEM LIST Tabor's Fracture of Base of Metacarpal of Right Thumb Exercise-Induced Asthma Hearing Difficulty of Left Ear Acute Pharyngitis, Unspecified Animal-Manan Injured By Fall From Or Being Thrown From Horse in Noncollision Accident, Initial Encounter Abdominal Contusion Concussion With Brief (Less Than One Hour) Loss of Consciousness Derangement of Right Knee Knee Injury Sore Throat Strain of Neck Muscle Strain of Right Rotator Cuff Capsule Autonomic Dysfunction Hypertension, Essential Cervicalgia Migraine Without Aura and Without Status Migrainosus, Not Intractable Intractable Chronic Migraine Without Aura and Without Status Migrainosus Social History Tobacco Use Smoking status: Never Smokeless tobacco: Never Vaping Use Vaping Use: Never used Substance Use Topics Alcohol use: No Comment: rare Drug use: No Objective BP 122/70 Pulse 108 Temp 36.6 C (97.8 F) Resp 16 Wt 67.2 kg (148 lb 2.4 oz) LMP 05/02/2024 (Within Days) SpO2 99% BMI 26.24 kg/m Physical Exam Vitals and nursing note reviewed. Constitutional: General: She is not in acute distress. Appearance: Normal appearance. She is not ill-appearing or toxic-appearing. HENT: Head: Normocephalic and atraumatic. Right Ear: Ear canal and external ear normal. Tympanic membrane is erythematous and bulging. Left Ear: Ear canal and external ear normal. Tympanic membrane is erythematous and bulging. Ears: Comments: TM's bulging with cloudy yellow fluid Nose: Congestion (mild mucosal edema) and rhinorrhea (clear fluid in nares) present. Right Turbinates: Swollen. Left Turbinates: Swollen. Right Sinus: No maxillary sinus tenderness or frontal sinus tenderness. Left Sinus: No maxillary sinus tenderness or frontal sinus tenderness. Mouth/Throat: Mouth: Mucous membranes are moist. Pharynx: Oropharynx is clear. Posterior oropharyngeal erythema (mild with clear fluid) present. No pharyngeal swelling or oropharyngeal exudate. Eyes: Extraocular Movements: Extraocular movements intact. Conjunctiva/sclera: Conjunctivae normal. Pupils: Pupils are equal, round, and reactive to light. Cardiovascular: Rate and Rhythm: Normal rate and regular rhythm. Pulses: Normal pulses. Heart sounds: Normal heart sounds. Pulmonary: Effort: Pulmonary effort is normal. Breath sounds: Normal breath sounds. No wheezing or rhonchi. Abdominal: General: Bowel sounds are normal. Palpations: Abdomen is soft. Musculoskeletal: Cervical back: Normal range of motion and neck supple. No tenderness. Lymphadenopathy: Cervical: No cervical adenopathy. Neurological: Mental Status: She is alert. Assessment/Plan 1. Acute suppurative otitis media of both ears without spontaneous rupture of tympanic membranes, recurrence not specified - sodium chloride (SALINE MIST) 0.65 % nasal spray; Use 1 [place] in the nose two times a day. Dispense: 88 mL; Refill: 2 -Use OTC Flonase at home after saline nasal spray - azithromycin (ZITHROMAX) 250 mg tablet; Take 2 tablets by mouth once daily for 1 day, THEN 1 tablet once daily for 4 days. Dispense: 6 tablet; Refill: 0 2. Acute cough - benzonatate (TESSALON PERLES) 100 mg capsule; Take 1 capsule by mouth three times a day as needed for cough. Dispense: 30 capsule; Refill: 0 Patient advised to drink fluids, get rest and take all meds as prescribed. Patient given educational materials - see instructions. Discussed use, benefit, and side effects of prescribed medications. All questions answered. Patient advised to follow up with PCP in one week, or sooner if symptoms worsen or persist. If symptoms become severe- GO TO ED. Patient verbalized understanding and agreeable with treatment plan. Rosalia Guy APRN, CNP 06/16/2024 11:29 AM documented in this encounter [facility] 06-16-2024 Instructions Rosalia Guy APRN.MAYA - 06/16/2024 11:27 AM EDT EAR INFECTION, MIDDLE (Otitis Media) DESCRIPTION: Infection in the middle ear. This is not contagious from person to person, but the preceding respiratory infection causing it may be contagious. Involved is the middle-ear space where nerves and small bones connect to the eardrum on one side and the eustachian tube on the other side. Most common in infants and children age 3 months to 3 years. FREQUENT SIGNS AND SYMPTOMS: -Irritability. -Earache. -Feeling of fullness in the ear. -Hearing loss. -Fever. -Dizziness. -Discharge or leakage from the ear. -Diarrhea, vomiting (sometimes). -Pulling at the ear (small children). RISK INCREASE WITH: -Recent illness, such as a respiratory infection, that has lowered resistance. -Crowded or unsanitary living conditions. -Cold climate. -Change in altitude such as flying or driving up mountains. -Family history of ear infections. -Day care. -Smoking in household. PREVENTIVE MEASURES: -Bottle-feed or breast-feed infants in a sitting position with head up, never lying down. -Breast-feeding decreases chances of child having ear infections. -No smoking in household. -Wash bed linens, towels and heating pads regularly to prevent reinfection. TREATMENT: -Diagnosis is usually made by examination of the ear. Fluid from the ear may be cultured. -Treatment usually involves medication and supportive care to relieve pain. -Apply heat to the area around the ears to relieve pain. -Swimming should be avoided until infection clears. -Surgery to insert plastic tubes through the eardrum to drain pus or fluid from the middle ear (rare); or surgery to remove the adenoids. -If the eardrum is bulging additional treatment may be necessary. MEDICATIONS: -Use ear drops to relieve pain. You may use non-prescription drops or those prescribed for a previous infection. They will not cure the infection. -Use non-prescription drugs, such as acetaminophen, to reduce pain and fever. -Antibiotics may be prescribed, if the infection appears to be bacterial rather than viral. Finish the medication. The infection may remain active for several days after symptoms disappear. ACTIVITY: Rest in bed or reduce activity until fever and pain subside. REPORT: -The following occur during treatment: Fever. Severe headache. Earache that persists longer than 2 days. despite treatment. Swelling around the ear. Convulsions. Twitching of the face muscles. Dizziness [facility] [address] [place], [place] [address] Emergency Department Diagnosis: Assessment COUGH: Your doctor wants you to have this information about coughing. The body has a cough reflex which helps expel mucous secretions and irritants from the lung and airway passages. Cough spasms are periods of continuous coughing lasting several minutes. Most coughs is caused by virus infections which may last for up to 2-3 weeks. Coughing helps to protect the lung from pneumonia. A persistent cough lasting longer than 4-6 weeks requires medical evaluation by your primary care doctor. Treatment of cough includes measures to loosen the cough and thin the mucous. Warm liquids, cough drops, and nonprescription cough medicine may help reduce dry hacking cough. Use a humidifier if necessary as dry air can make coughs worse. Ultrasonic humidifiers are especially useful as they kill molds and many bacteria. Some cough medicines have antihistamines, decongestants, or alcohol in them; there is no proof that any of these help control cough. Prescription cough medicine or those with dextromethorphan (DM) should be reserved for dry coughs that prevent sleep or cause spasms or chest pain. Avoid any exposure to cigarette smoke as this will worsen the cough or make it last much longer. Call your doctor right away if you or your child have increased breathing difficulty, a high fever, a cough that lasts longer than 3 weeks, or other serious complaints. documented in this encounter [facility] 06-03-2024 Telephone encounter Note Left message offering appt with Franco Tao on 06/03/24 per wait list [facility] 06-03-2024 Miscellaneous Notes Left message offering appt with Franco Tao on 06/03/24 per wait list documented in this encounter [facility] 05-12-2024 Telephone encounter Note Left message for opening on 05/12/24 with franco Tao per wait list [facility] 05-12-2024 Miscellaneous Notes Left message for opening on 05/12/24 with franco Tao per wait list documented in this encounter [facility] 05-09-2024 Telephone encounter Note Prescription Refill Information The patient has been identified by name and date of : Yes Caregiver verified no other encounters exist for this prescription request: Yes Caregiver confirmed with patient/requestor that no other refills are due, in the near future, with this provider at this time: Yes The last office visit in the department: 04/11/24 Does the patient have a future office visit with this provider/department: No Requested Prescriptions Pending Prescriptions Disp Refills PARoxetine (PAXIL) 10 mg tablet 30 tablet 1 Sig: Take 1 tablet by mouth once daily. Dinorah Diaz LPN May 09, 2024 8:56 AM [facility] 05-09-2024 Miscellaneous Notes Prescription Refill Information The patient has been identified by name and date of : Yes Caregiver verified no other encounters exist for this prescription request: Yes Caregiver confirmed with patient/requestor that no other refills are due, in the near future, with this provider at this time: Yes The last office visit in the department: 04/11/24 Does the patient have a future office visit with this provider/department: No Requested Prescriptions Pending Prescriptions Disp Refills PARoxetine (PAXIL) 10 mg tablet 30 tablet 1 Sig: Take 1 tablet by mouth once daily. Dinorah Diaz LPN May 09, 2024 8:56 AM documented in this encounter [facility] 05-08-2024 History of Presen t illness Narrative Patient does not want to try Botox at this time and would like to try anti-CGRP mAb. We will request precertification for Calcitonin Gene Related Peptide Monoclonal Antibody, Galcanezumab. This patient meets ICHD-3 criteria for treatment with CGRP MAB, She has Chronic Migraine Headache (CM), Chronic Migraine without aura, without mention of intractable migraine without mention of status migrainosus which occurs at least 15 days per month for at least 4 hours per day. The FDA has approved CGRP MAB for prevention of migraine. Specifically, the patient has 15 migraines per month, lasting 4 or more hours/d associated with photophobia, phonophobia, nausea, vomiting for three or more months. Medication overuse headache has been ruled out. Patient is currently taking a Gepant (Ubrelvy) for acute treatment of her migraine. The following preventative medications have been tried for 3 or more months without benefit or discontinued due and/or side effects. Anti-Depressant and Antipsychotic Bupropion (Wellbutrin) Duloxetine (Cymbalta) Paroxetine (Paxil) Sertraline (Zoloft) Blood Pressure Lisinopril (Zestril) Metoprolol (Lopressor,Toprol XL) The following abortive medications have been tried but require high frequency use which can lead to Medication Overuse Headache: Analgesic Hydrocodone/Acetaminophen (Vicodin, [place]) Tramadol (Ultram) Anti-Anxiety Buspirone (Buspar) Anti-Migraine Eletriptan (Relpax) Naratriptan (Amerge) Rizatriptan (Maxalt) Over the Counter Medications Acetaminophen (Tylenol) Acetaminophen/Aspirin/Caffeine (Excedrin, Goody s) Aspirin Ibuprofen (Advil, Motrin) Naproxen sodium (Aleve) documented in this encounter [facility] 05-06-2024 Telephone encounter Note MAR: Lisinopril 5 mg daily Metoprolol succinate ER 50 mg (take 1.5 tab daily) [facility] 02/21/24 Dr. Tovar PLAN AND RECOMMENDATIONS: The patient appears improved on her current medical therapy but however continues to have elevations of tachycardia. She also notes that her blood pressure continues to spike. At this point in time we have therefore increased Toprol to 75 mg daily. Will follow-up with her in 3 months time for reevaluation. This can be a video visit as well. Dietary and lifestyle modification was emphasized at length. NOV not scheduled [facility] 05-06-2024 Miscellaneous Notes MAR: Lisinopril 5 mg daily Metoprolol succinate ER 50 mg (take 1.5 tab daily) [facility] 02/21/24 Dr. Tovar PLAN AND RECOMMENDATIONS: The patient appears improved on her current medical therapy but however continues to have elevations of tachycardia. She also notes that her blood pressure continues to spike. At this point in time we have therefore increased Toprol to 75 mg daily. Will follow-up with her in 3 months time for reevaluation. This can be a video visit as well. Dietary and lifestyle modification was emphasized at length. NOV not scheduled documented in this encounter [facility] 05-06-2024 History of Presen t illness Narrative Eeg Tech offered: Patient declines. Maricruz Tejada is a 18 year old female who presents for problem visit irregular bleeding HPI: heavy bleeding for 9-11 day, sometime with have 2 periods a month. She is taking the progesterone only pill at the same time every day and has not missed any dosages. 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 PAST MEDICAL HISTORY Diagnosis Date Calculus of kidney Migraine headache with aura PMDD (premenstrual dysphoric disorder) 2019 Syncope and collapse PAST SURGICAL HISTORY Procedure Laterality Date INSERTION OF IUD 10/24/2021 removed 09/14/2023 PAST SURGICAL HISTORY OF removal of renal calculi via lithotrypsy PAST SURGICAL HISTORY OF 06/24/2014 PCP of right thumb UNLISTED PROCEDURE LACRIMAL SYSTEM 02/18/2004 DR WHEELER FAMILY HISTORY Problem Relation Age of Onset Hypertension Mother Started in mid-30's Hypertension Father No Known Problems Sister No Known Problems Brother Hypertension Maternal Grandmother Hypertension Maternal Grandfather Lipids Maternal Grandfather other (FIBROMYALGIA) Paternal Grandmother Social History Tobacco Use Smoking status: Never Smokeless tobacco: Never Vaping Use Vaping Use: Never used Substance Use Topics Alcohol use: No Comment: rare Drug use: No Current Outpatient Medications Medication Sig ubrogepant (UBRELVY) 100 mg tablet Take 1 tab at migraine onset. May repeat once in 2 hours as needed. DULoxetine (CYMBALTA) 60 mg capsule Take 1 capsule by mouth once daily. PARoxetine (PAXIL) 10 mg tablet Take 1 tablet by mouth once daily. metoprolol succinate ER (TOPROL XL) 50 mg 24 hr tablet Take 1.5 tablets by mouth once daily. lisinopril (ZESTRIL) 5 mg tablet Take 1 tablet by mouth once daily. Norethindrone, Contraceptive, (JOLENE) 0.35 mg tablet Take 1 tablet by mouth once daily. Cholecalciferol, Vitamin D3, 50 mcg (2,000 unit) cap Take 1 capsule by mouth once daily. Current Facility-Administered Medications Medication Dose Route Frequency perflutren lipid microspheres 1.3 mL in NaCl (PF) 0.9% 10 mL injection (DEFINITY) INTRAVENOUS DIRECTED PRN sodium chloride 0.9 % (flush) 10 mL (BD POSIFLUSH) 10 mL INTRAVENOUS DIRECTED PRN Allergies As of Date: 05/06/2024 Allergen Noted Reaction CODEINE 07/03/2007 TRAMADOL 06/30/2014 Itching and Other: See Comments Fully Assessed 05/06/2024 REVIEW OF SYSTEMS Expanded ROS: N/A Allergies and current medication updated:Yes EXAM: BP 140/100 Wt 144 lb 12.8 oz (65.7kg) LMP 05/02/2024 GENERAL: pleasant, female in no apparent distress HEENT: Normocephalic, atraumatic, mucus membranes moist, and no lesions CHEST: Normal inspiratory effort NEURO: alert and oriented x3,exam grossly non-focal EXTREMITIES: normal ASSESSMENT/PLAN: 1. Irregular menstrual bleeding - ICD9: 626.4, ICD10: N92.6 (primary diagnosis) - DROSPIRENONE (CONTRACEPTIVE) 4 MG (28) TABLET 2. Heavy menses due to IUD (HCC) (HCC) - ICD9: 996.76, 626.2, ICD10: T83.89XA, N92.0 - DROSPIRENONE (CONTRACEPTIVE) 4 MG (28) TABLET 3. Essential hypertension - ICD9: 401.9, ICD10: I10 - DROSPIRENONE (CONTRACEPTIVE) 4 MG (28) TABLET 4. Breakthrough bleeding on Depo-Provera - ICD9: 626.6, ICD10: N92.1 - DROSPIRENONE (CONTRACEPTIVE) 4 MG (28) TABLET Emely Handy APRN.SENIOR ACCOUNT CLERK Medical Decision Making: Problems: Low: Acute, uncomplicated illness or injury Risk: Moderate: Drug management Medical Decision Making Level: 3 - Low documented in this encounter [facility] 05-05-2024 History of Presen t illness Narrative Episode Visit Count: 1 Therapist That Will Accept/Oversee The Plan Of Care: Franco Tao Start of Care Date: 05/05/24 Onset Date: 12/20/21 Plan of Care Certification Date: (NA, private insurance) Patient Identified by Name and Date of : Yes [facility] SPEECH, LANGUAGE, and COGNITIVE LINGUISTIC EVALUATION PLAN OF CARE: Impression: Communication deficits identified: Cognitive-Linguistic deficits RECOMMENDATION: BUHR MILL OPERATOR Recommendations: Outpatient Speech Therapy Results and Recommendations Discussed With: Patient Prognosis: Good Good: current objective clinical presentation Goals for Episode of Care: created on 05/05/2024 through 06/16/24 EXPRESSIVE LANGUAGE GOALS Demonstrate the use of taught strategies for effective communication during conversations 90% of the time with minimal cues. All goals to target the patient's overall ability to facilitate functional communication of ADL medical / social needs. COGNITIVE GOALS Improve categorical naming tasks at a concrete and abstract level with 90% accuracy given minimal assist. Complete visual reasoning/organization tasks with 90% accuracy given minimal assist. Improve short term/prospective memory to 90% accuracy with use of compensatory strategies with minimal assist/cues. Improve working memory to WFL during complex cognitive tasks with 90% using compensatory strategies in order to recall the steps taken during a cognitive process. Improve alternating and divided attention per auditory/visual cognitive tasks to 90% accuracy in order to demonstrate improved divide and alternate attention between multiple tasks within the clinical environment. All goals to target the patient's overall ability to facilitate functional cognitive linguistic skills. Planned Interventions, Frequency, and Duration: Planned Treatment Interventions: Cognitive-Linguistic Training (79569, [id number], [id number]), Expressive Language Training ([id number], [id number]), Patient / Caregiver Education/ Training Current Frequency: 1x/week Duration: 6 weeks PLAN FOR NEXT VISIT: memory tasks/strategies, word finding, complex reasoning/attention Patient demonstrates good understanding of plan of care and treatment. The above goals and plan of care were discussed and agreed upon by patient/family. SUBJECTIVE: Maricruz Tejada is a 18 year old female seen today for a diagnostic. Past Relevant Medical Conditions: Concussion, Headaches Difficulty noted with memory/focus and attention. Things that people say I will completely forget about it. I know what I want to say, but I can't process it My attention span is so bad. Last concussion was Dec. 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 She had to withdraw from the program. 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 Lives with her parents and 2 siblings. Some sensitivity to sound. She has headaches.. Patient Goals: Improve attention, focus and memory Prior Functional Level: Within Functional Limits OBJECTIVE MEASURES WITH LEVEL OF FUNCTION: Hearing Deficits: Hard Of Hearing (on left) Vision Deficits: Wears glasses (for driving) Portions of the following standardized testing were utilized in the evaluation of the patient: Cognitive Linguistic Quick Test + Current Status Oral Hygiene: Clear, moist oral cavity Dentition: Retains Natural Dentition Current Feeding Method: Oral Current Diet Textures: Regular Consistency, Thin Liquids IDDSI Level 0 (Medication whole with liquids) Current Level Of Communication: Verbal Current Management Of Secretions: Able to self-manage Oral Motor Exam: Within Functional Limits Speech/Voice/Language Speech Production: Within Functional Limits Voice Assessment: No Expressive and Receptive Language: Within Functional Limits Except Verbal Expression Deficits: Verbal Expression Deficit Comments Verbal Expression Deficit Comments: Conversatoinal word finding issues reported. Reading Comprehension Deficits: (Did not test) Written Expression Deficits: (Did not test) COGNITIVE-LINGUISTIC SKILLS Cognition Cognitive Status: Within Functional Limits For Current Session Except Cognitive Deficits: Attention Deficit, Memory Deficits, Executive Function Deficit SLUMS Level of Education: High school (and some college level work) Education: Education Learning Preferences: Demonstration, Explanation, Printed Materials Barriers: None Learning/Educational Needs: Disease Process, Plan of Care, Rehabilitation Techniques and Procedures, Language Skills, Cognitive Skills, Home Exercise Program Education Provided: Yes, see treatment interventions for education provided Education Provided To: Patient Education Mode/Type: Demonstration, Explanation/Discussion, Literature/Printed Materials (Provided written and verbal education on post consussion symptoms and managment and internal and external memory strategies) Response to Education/Teach Back: States/Identifies, Requires Review/Additional Education TREATMENT: Evaluation: Eval Sound Production with Language Expression and Dish Machine Operator ([id number]) Speech/Language Therapy ([id number]): Skilled Intervention: Educated and instructed patient on memory recall strategies such as internal and external memory strategies and post concussion symptoms and symptom management. Billing: Eval Sound Production with Language Expression and Dish Machine Operator ([id number]) and Speech Treatment ([id number]) Total time / Length of visit: 54 minutes Session Start Time : 1507 Session Stop Time : 1601 Franco Tao CCC-BUHR MILL OPERATOR documented in this encounter [facility] 05-01-2024 Telephone encounter Note Patient would like to move forward with Botox. Please addend note with Botox dot phrase so we can submit to insurance, [facility] 05-01-2024 Miscellaneous Notes Patient would like to move forward with Botox. Please addend note with Botox dot phrase so we can submit to insurance, Patient last seen on 04/23/24. documented in this encounter [facility] 05-01-2024 Telephone encounter Note Patient last seen on 04/23/24. [facility] 04-28-2024 Telephone encounter Note IRB#: [id number] [employer]: Dr. Abisai Graham Study Name: Migraine Medication Effects on Urinary Symptoms Consent version 1.0 dated 07/03/23 IRB approval date 09/14/23 Date: April 28, 2024 Patient name: Maricruz Tejada Initial invitation sent. Shaila Thompson MD April 28, 2024 7:48 PM [facility] 04-28-2024 Miscellaneous Notes IRB#: [id number] [employer]: Dr. Abisai Graham Study Name: Migraine Medication Effects on Urinary Symptoms Consent version 1.0 dated 07/03/23 IRB approval date 09/14/23 Date: April 28, 2024 Patient name: Maricruz Tejada Initial invitation sent. Shaila Thompson MD April 28, 2024 7:48 PM documented in this encounter [facility] 04-23-2024 Instructions Te Kerns DO - 04/23/2024 1:38 PM EDT Acute Headache Treatment: (What to take as-needed for headache) 1) Ubrelvy 100 mg at earliest sign of migraine. May repeat once in 2 hours. 2) OTC no more than 10 days per month. Headache Preventive Treatment (What to take on a daily basis to try to lessen frequency and/or intensity of headache): *Please keep in mind that it takes 4-6 weeks for the medication to start working well and 2-3 months at the appropriate dose before deciding if it will be useful or not. If it is not helping at all by this time, then we will discuss other medications to try. Supplements may take 3-6 months until you see full effect. 1) Options: Botox every 3 months, once monthly self injection (Emgality, Ajovy, Aimovig), once daily Qulipta pill. 2) Consider adding supplements: Magnesium 400-800 mg daily. Magnesium glycinate is a good choice for those with a sensitive stomach who have gastrointestinal side effects such as diarrhea with other forms of magnesium. It is anecdotally also helpful with anxiety and sleep. Magnesium threonate also has low risk of gastrointestinal side effects and anecdotally helpful with cognitive function and brain fog symptoms. Magnesium malate has low gastrointestinal side effects and is reportedly more energizing and anecdotally often helpful in fibromyalgia and chronic fatigue syndrome. Magnesium citrate is one of the most studied, popular, and well-absorbed forms of magnesium. It can also be mixed easily with liquids if you can t take pills. However, it comes with a higher risk of diarrhea and gastrointestinal side effects, although this could be helpful for those with constipation. Magnesium oxide is also well studied, cheap, and often used for heartburn and indigestion. However, it is not well absorbed and can have some laxative side effects as well, so can also be helpful for constipation. Other supplements to consider would be Coenzyme Q10 200 mg (or 150 mg) twice daily (or Qunol brand 100 mg daily) +/- Riboflavin (Vitamin B2) 400 mg daily (or 200 mg twice daily). You can sometimes buy supplements cheaper (especially Coenzyme Q10) at www.besomebody. or at [employer]. 3) Metoprolol, Lisinopril, Cymbalta per your prescribers. General Headache Instructions: 1) Maintain a headache diary; learn to identify and avoid triggers. 2) Limit use of acute treatments (zsxc-geo-svgfcoj medications, triptans, etc.) to no more than 2 days per week or 10 days per month to prevent medication overuse headache (rebound headache). 3) Follow a regular schedule (including weekends and holidays) for the next 6 weeks: A) Don't skip meals. B) 8 hours of sleep nightly. C) Avoid the following common headache triggers: -Caffeine (coffee, chocolate, tea, cola/pop/soda (7-up, Sprite, Sheila Mist, Candice Nereyda, Mug/A+W Root Beer, Minute Maid [place], Slice are okay)) -Foods containing nitrates (deli meat, ham, brown, sausage, hot dogs) -Tyramine (aged cheese; can only have Lithuanian cheese, cottage cheese, Velveeta and fresh mozarella (most pizza uses aged mozarella)) -MSG (Mauritanian/ foods, Doritos, all flavored chips and Ramen noodles) -Nutrasweet and artificial sweeteners D) Minimize stress. E) Exercise 30 minutes per day. Being overweight is associated with a 5 times increased risk of chronic migraine. F) Keep well hydrated and drink 6-8 glasses of water per day. 4) Initiate non-pharmacologic measures at the earliest onset of your headache. A) Rest and quiet in a cool, dark environment. B) Relax and reduce stress. C) Cold compress to head (place a dry washcloth to forehead, cover with a blue freezer packet and use a headband to press the freezer packet across the forehead and temples). 5) Don't wait!! Take the maximum allowable dosage of prescribed medication at the very earliest sign of headache. 6) Compliance: Take prescribed medication regularly as directed and at the first sign of a headache. 7) Communicate: Call your physician when problems arise, especially if your headaches change, increase in frequency/severity, or become associated with neurological symptoms (weakness, numbness, slurred speech, etc.). 8) Headache/pain management therapies: Consider various complementary methods, including medication, behavioral therapy, psychological counselling, biofeedback, massage therapy, acupuncture, and other modalities. Such measures may reduce the need for medications. Counseling for pain management, where patients learn to function and ignore/minimize their pain, seems to work very well. 9) Recommend changing family's attention and focus away from patient's headaches. Instead, emphasize daily activities. If first question of day is 'How are your headaches/Do you have a headache today?', then patient will constantly think about headaches, thus making them worse. Goal is to re-direct attention away from headaches, toward daily activities and other distractions. Avoiding Medication Overuse Headache (Rebound Headache): Based on current research, the types of medications and their frequency of use which converts a previously episodic headache (particularly migraine) into a chronic daily headache (any headache occurring 15 or more days per month for at least 4 hours per day) are as follows: ---> Over the counter medications, NSAIDS and combination analgesics: -More than 2 days per week, or more than 10 days per month. -These include medications such as Acetaminophen (Tylenol), Naproxen (Aleve), Ibuprofen (Advil, Motrin), Acetaminophen/Caffeine (Excedrin), Acetaminophen/Dichloralphenazone /Isometheptene (Midrin), Aspirin (ok to continue if taking for medical reasons), cold remedies and sleep-promoting agents, among others. ---> Triptans: -More than 2 days per week, or more than 10 days per month. -These include Sumatriptan (Imitrex), Sumatriptan/Naproxen (Treximet), Rizatriptan (Maxalt), Almotriptan (Axert), Zolmitriptan (Zomig), Eletriptan (Relpax), Naratriptan (Amerge), Frovatriptan (Frova). ---> Opiates/Opioids (Narcotics): -8 days or more per month. Some research suggests that even infrequent use of these medications makes migraine specific medications such as triptans and NSAIDs less effective. -These include any narcotics such as Acetaminophen/Hydrocodone (Vicodin), Acetaminophen/Oxycodone (Percocet), Acetaminophen/Propoxyhene (Darvocet), Acetaminophen/Codeine (Tylenol #3, #4), Tramadol (Ultram), Acetaminophen/Tramadol (Ultracet), Oxycodone (OxyContin), Hydromorphone (Dilaudid), Fentanyl, Butorphanol (Stadol), Morphine or any form of a Morphine derivative. ---> Butalbital containing medications: -5 or more days per month. As you can see, these are the worst offenders. -These include Acetaminophen/Butalbital/Caffein e (Fioricet, Esgic) Acetaminophen/Butalbital/Caffein e/Codeine (Fioricet with Codeine), Aspirin/Butalbital/Caffeine (Fiorinal), Aspirin/Butalbital/Caffeine/Code ine (Fiorinal with Codeine). Vitamins and herbs that show potential for migraine prevention: Magnesium: Magnesium (250 mg twice a day or 500 mg at bed) has a relaxant effect on smooth muscles such as blood vessels. We often give intravenous magnesium to patients who come into the emergency department for migraine because it helps to break the migraine. Three trials found 40-90% average headache reduction when used as a preventative. Magnesium also demonstrated the benefit in menstrually related migraine. Magnesium is part of the messenger system in the serotonin cascade and it is a good muscle relaxant. It is also useful for constipation which can be a side effect of other medications used to treat migraine. Good sources include nuts, whole grains, and tomatoes. Coenzyme Q10: This is present in almost all cells in the body and is critical component for the conversion of energy. Recent studies have shown that a nutritional supplement of CoQ10 can reduce the frequency of migraine attacks by improving the energy production of cells as with riboflavin. Doses of 200 mg (or 150 mg) twice a day have been shown to be effective. Riboflavin (Vitamin B2): 200 mg twice a day (or 400 mg daily). This vitamin assists nerve cells in the production of ATP, a principal energy storing molecule. It is necessary for many chemical reactions in the body. There have been at least 3 clinical trials of riboflavin using 400 mg per day all of which suggested that migraine frequency can be decreased. All 3 trials showed significant improvement in over half of migraine sufferers. The supplement is found in bread, cereal, milk, meat, and poultry. Most Americans get more riboflavin than the recommended daily allowance, however riboflavin deficiency is not necessary for the supplements to help prevent headache. Feverfew: Feverfew is a common garden herb [place] and popular in [place] as a treatment for disorders typically controlled by aspirin. The mechanism of action is unknown but is believed to be related to a chemical called parthenolide which helps the body use serotonin more effectively. Serotonin helps prevent migraine and assists with resolution when it occurs. Parthenolide also inhibits the release of histamine which is linked to pain and inflammation. Consistency of active ingredients in different products can be a problem. Some formulations don't have the active ingredient (parthenolide) that prevents migraine. A parthenolide content of 0.2% is generally recommended. Typical dosage is one capsule 3 times a day. Butterbur: This is an extract derived from the petisides hybridus root, which has been used for medicinal purposes since ancient times. A recent study found that 75 mg daily given over 4 months reduced headache frequency by 50% or more in over two thirds of the 245 patient studied. The 50 mg dose showed no significant effect. Side effects were infrequent, and the most common and unusual includes burping/belching. Raw butterbur root contains toxic chemicals that must be filtered out during the manufacturing process. To be sure you are choosing a safe product. Look for a formulation that does not contain pyrrolizidine alkaloids which are toxic to the liver. Melatonin: Increasing evidence shows correlation between melatonin secretion and headache conditions. Melatonin supplementation has shown decreased headache intensity and duration. It is widely used as a sleep aid. Sleep is nature's way of dealing with migraine. A dose of 3 mg is recommended to start for headaches including cluster headache. Higher doses up to 15 mg has been reviewed for use in Cluster headache and have been used. The rationale behind using melatonin for cluster is that many theories regarding the cause of Cluster headache center around the disruption of the normal circadian rhythm in the brain. This helps restore the normal circadian rhythm. It should be taken at least 2 hours before bedtime. Candice: Candice has a small amount of anti-histamine and anti-inflammatory action which may help headache. It is primarily used for nausea and may aid in the absorption of other medications. == HEADACHE EXPECTATIONS: There are many types of headaches, and only a rare few in which complete relief can be expected. In general, there is no cure for headache, especially migraine based headaches. There is nothing available that completely prevents headaches from occurring, breaking through, or having periodic flare-ups and fluctuations. Regardless of what you are using on a daily basis for prevention, episodic headaches should still be expected, and periods where frequency may escalate and fluctuate are unavoidable. There is no quick fix for most headaches. Furthermore, the longer you have had high frequency headaches (such as chronic daily headache), the longer it will likely take to expect any improvement. In fact, some people will never improve, regardless of how many medications or other treatments we try. Our treatment strategy is to evaluate for possible causes of your headache, although testing is usually always normal, even in cases of daily continuous headaches for years. Most types of headache such as migraine are electrical brain disorders (similar to how epilepsy is an electrical brain disorders). Therefore, there is no testing that will reveal this dysfunctional electrical circuitry such on MRI, or other testing. We try to find a medication that may help lessen the frequency and/or severity of your headaches. The goal is not to completely stop them from happening, although if that happens, great! Different people respond to different medications, and some people just don't respond to anything, so it's usually a matter of trying different options. We can not predict if or when exactly you will respond to a treatment that we provide. Preventive headache medications take 4-6 weeks to start working, and 2-3 months to see full effect, assuming you reach an effective dose. Therefore, calling or messaging frequently because you have a headache flare prior to the 3 month hayley is unlikely to change anything, and unfortunately there is nothing available that will expedite this, so please try to avoid this. Our recommendation will generally be to give it adequate time first. If you are unable to wait it out for medications to work, we can also try IV infusions for some temporary relief. Or, we offer our 3 week outpatient chronic daily headache program (IMATCH) to help you better learn how to function and deal with chronic headache issues. In general, the best that preventive medications or other treatments (including Botox) are able to offer in migraine management (variable in other headache types) is a 50% improvement in frequency and/or severity of headache. That is our goal, and any additional benefit is considered a bonus. Some people do significantly better than this, others do not get close to this. Therefore, if your headaches are not improving by at least 3 months on your preventive strategy, contact us and we can discuss further adjustments. Keep in mind that complete headache cure is not a realistic expectation. MYCHART, PHONE CALLS, TESTING RESULTS: Please understand that we rely heavily and work closely with our nursing team to assist us in managing your telephone calls, test results, and refills. Due to the volume of daily phone calls, messages, and schedules, it is impossible for us to personally call patients back through the day. We do receive your messages, which are very important to us, and respond most often through our nursing team to help relay our message and response back to you. The main way of communication is by [employer] rather than phone lines, so if you have not signed up, please do so. [employer] is also the way that you can review your labs and testing. We are not able to contact everyone to tell them results are normal. If you do not hear back from us regarding testing you have had, it should be considered normal or within normal range. If you have any questions about the results, you are free to message us. [employer] is meant for simple questions regarding medications, possible side effects, or other simple straight forward questions in limited sentences, rather than multiple paragraphs of discussion. [employer] is not meant for, safe, or efficient for these complex questions, extensive questions, extensive medication adjustments, complex new symptoms or concerns. These issues beyond simple questions require a follow up visit with myself, one of our physician assistants, nurse practitioners, or a Virtual Visit via computer or smart phone, as detailed further down. REFILLS: Please pay attention to when your refills will need to be renewed. Due to the volume of phone calls daily, this could potentially take a few days, although we certainly try to honor your refill requests as soon as we can. You should call at least 1 week in advance of needing a refill to ensure you do not run out of medication. Keep in mind that refill requests on Fridays may not be filled until the following week. BOTOX: If you are receiving Botox treatments, please check with your insurance company before and following each treatment appointment to ensure that you still have pre-approved coverage for your next Botox appointment in 3 months. If your coverage has run out, and a new prior authorization is required to continue Botox treatment, please call our office and let us know so that we can file the paperwork. == Telemedicine is the newest virtual visit that we are now offering to allow you to have a [id number] conversation with your doctor for 15 minutes (although this can extend further as needed), without the need for driving to our clinic, paying for parking, paying copays, paying for travel, stopping over for meals, etc. You will need a computer or smartphone (with a built-in camera), should you wish to avail of this convenient alternative. If you are interested in the telemedicine visit, please let me know and we will facilitate that visit. I have included more detailed information below on how the virtual visit works. We look forward to serving your needs and answering your questions! REASON FOR A VIRTUAL ONLINE APPOINTMENT In order to provide you with the best care possible, we have recently begun using a technology to connect patients, providers, and family members through a Skype -like connection for live audio and video communication. We are now using this as a way for patients to have a visit with a provider without the added costs of having to travel to our facility. This service, [facility], is easily accessible through your mobile device or a desktop/laptop with a browser and internet connection. HOW DO I GET STARTED? ON A DESKTOP OR LAPTOP COMPUTER WITH A WEBCAM CONNECTED: 1. Go to the URL: [email or web address] 2. Click on Sign Up and Create a patient account for yourself. 3. Please also follow the links to Test My Computer . 4. Follow the steps suggested, testing your Internet Speed, Webcam, Microphone, Speaker, and your video software. 5. Please make sure your video software is up-to-date. This is a safe, [facility] approved download, and will not harm your computer. ON AN IPHONE, IPAD, OR ANDROID DEVICE: 1. Open up the [employer] Store or Dimmie and search [facility]. 2. Download and Install the Application. 3. Tap on Sign Up and create a patient account for yourself. 4. Please use an e-mail address that you frequently check, as you will receive an e-mail appointment from [facility]. Find our user guide, here: [email or web address] Important: Don t forget your password you choose during setup. For your personal records: Your E-mail Address Here: Your Password Here: YOUR ONLINE VIRTUAL VISIT 1. Once the visit is scheduled, you should plan to begin your visit at least 15 minutes prior to the start of your visit. 2. You can begin by opening the email you received to schedule this visit, click on Start Visit, agree to the Terms of Use, and wait for your visit to start! 3. Agree to the Terms of Use, and wait for your visit to start! 4. When you join the virtual visit you will be connected to the provider. Please call [phone] prior to your visit if you have any questions regarding technology! documented in this encounter [facility] 04-23-2024 History of Presen t illness Narrative Images from the original note were not included. Previous records (physician notes, laboratory reports, and radiology reports) and imaging studies were reviewed and summarized as below. My recommendations will be communicated back to the patient's primary care physician and/or consulting physician(s) by way of shared medical record or letter via US mail. Thank you for allowing me to contribute to the care of your patient. VIRTUAL NEW PATIENT VISIT ASSESSMENT: 18 year old female with history significant for migraine without aura, multiple concussions, post-concussion syndrome, remote kidney stone, PMDD, depression, with fluctuating cycles of high frequency episodic migraine bordering on chronic migraine at times. PLAN: (Please see typed patient instructions for detailed instructions) ---> Acute Treatment: -Gepant trial in hopes of better efficacy. ---> Preventive Treatment: -Options discussed and she will let me know; Botox vs. CGRP mAb vs. Qulipta. -Supplements discussed. -Metoprolol, Lisinopril, Cymbalta per prescribers. ---> Headache education was done. Discussed lifestyle modification including increased oral hydration, decreased caffeine, exercise and stress management. Discussed treatment options including preventive and acute medications, natural supplements. Discussed medication overuse headache and to limit use of acute treatments to no more than 2 days/week or 10 days/month. Discussed medication side effects, adverse reactions and drug interactions. Written educational materials and patient instructions outlining all of the above were given. ---> Follow-up: pending decision above. We will request a precertification for a Calcitonin Gene-Related Peptide Receptor Antagonist (GEPANT) Ubrogepant for the rescue treatment of episodic migraine. This patient meets ICHD-3 criteria for treatment of migraine with a small molecule CGRP antagonist GEPANT. The FDA has approved GEPANTS for the treatment of migraine. Specifically, the patient has 8 migraine headaches per month, lasting 4 or more hours/day associated with photophobia, phonophobia, nausea, vomiting for three or more months. Medication overuse headache has been ruled out.Patient will not use with another GEPANT. The patient has tried and failed the following : The following preventative medications have been tried without benefit: Anti-Depressant and Antipsychotic Bupropion (Wellbutrin) Duloxetine (Cymbalta) Paroxetine (Paxil) Sertraline (Zoloft) Blood Pressure Lisinopril (Zestril) Metoprolol (Lopressor,Toprol XL) The following abortive medications have been tried but require high frequency use which can lead to Medication Overuse Headache: Analgesic Hydrocodone/Acetaminophen (Vicodin, [place]) Tramadol (Ultram) Anti-Anxiety Buspirone (Buspar) Anti-Migraine Eletriptan (Relpax) Naratriptan (Amerge) Rizatriptan (Maxalt) Over the Counter Medications Acetaminophen (Tylenol) Acetaminophen/Aspirin/Caffeine (Excedrin, Goody s) Aspirin Ibuprofen (Advil, Motrin) Naproxen sodium (Aleve) --- REFERRING PHYSICIAN: Shaila Hopkins [address] [facility] [address] PCP: Celso Freire [address] [place] [address] Accompanied by: Self CC: Headache and Migraine HxCC: 18 year old female with history significant for migraine without aura, multiple concussions, post-concussion syndrome, remote kidney stone, PMDD, depression, who presents for evaluation of frequent headaches. HEADACHE TYPE 1: Onset: Early teens (before concussions), increased after concussions. Location: Neck R>L and spreads holocephalically. Description: Throbbing, pulsating. Characteristics: Duration: Headache attacks last more than 4 hours. Frequency: 15 overall headache days per month which includes 8 migraine days per month. Timing: Most are waking migraines. Time to peak pain intensity: Fast. Associated symptoms: Aura: absent. Photophobia, Phonophobia, and Nausea, Vomiting. Relieving factors: Maxalt used to help but then wore off. Triggers: ? CURRENT ACUTE TREATMENTS: ---> Naratriptan 1 mg -<10 days/month ---> OTC ->10 days/month CURRENT PREVENTIVES: ---> Metoprolol ER 75 mg daily ---> Lisinopril 5 mg daily ---> Cymbalta 60 mg daily ---> Paxil 10 mg daily Prior Therapies Duration of Use Dose Reason for Discontinuation Analgesic Hydrocodone/Acetaminophen (Vicodin, [place]) Tramadol (Ultram) Anti-Anxiety Buspirone (Buspar) Anti-Depressant and Antipsychotic Bupropion (Wellbutrin) Duloxetine (Cymbalta) Paroxetine (Paxil) Sertraline (Zoloft) Antiemetics Ondansetron Anti-Migraine Eletriptan (Relpax) Naratriptan (Amerge) Rizatriptan (Maxalt) Blood Pressure Lisinopril (Zestril) Metoprolol (Lopressor,Toprol XL) Muscle Relaxer Baclofen (Lioresal) Other Medications Dextroamphetamine (Adderal) Prednisone Over the Counter Medications Acetaminophen (Tylenol) Acetaminophen/Aspirin/Caffeine (Excedrin, Goody s) Aspirin Ibuprofen (Advil, Motrin) Naproxen sodium (Aleve) HEADACHE SCORES: 04/23/2024 Headache Questions ID Migraine Screener: 3 (Positive) ER visits in the last year: 0 Hospital stays in the last year: 0 Limited ADLs in the last month: 15 Days missed from work or school in the last month: 3 Days headache pain free in the last month: 15 Days per month with ALL of the following symptoms - decreased productivity, light sensitivity and nausea: 8 PRN medication usage in the last month: 15 04/23/2024 HIT-6 HIT-6 67 (Severe impact) 04/23/2024 OCTAVIO - 2/7 SCORES OCTAVIO-2 Score 1 04/23/2024 Migraine Specific QOL - Higher scores indicate better HRQL Role Function-Restrictive Transformed Score (range: 0-100) 34.29 Role Function-Preventive Transformed Score (range: 0-100) 45 Emotional Function Transformed Score (range: 0-100) 53.33 04/23/2024 PHQ-9 Score 12 RECENT LABS: Latest Ref Rng 04/25/2023 10/18/2023 Protein, Total 6.3 - 8.0 g/dL 7.7 Albumin 3.9 - 4.9 g/dL 4.5 Calcium 8.5 - 10.2 mg/dL 9.8 Bilirubin, Total 0.2 - 1.3 mg/dL 0.3 Alkaline Phosphatase 34 - 123 U/L 80 AST 13 - 35 U/L 17 ALT 7 - 38 U/L 13 Glucose 74 - 99 mg/dL 113 (H) BUN 7 - 21 mg/dL 9 Creatinine 0.58 - 0.96 mg/dL 0.68 Sodium 136 - 144 mmol/L 138 Potassium 3.7 - 5.1 mmol/L 4.0 Chloride 97 - 105 mmol/L 104 CO2 22 - 30 mmol/L 23 Anion Gap 9 - 18 mmol/L 11 eGFR >=60 mL/min/1.73m 128 WBC 3.70 - 11.00 k/uL 4.94 RBC 3.90 - 5.20 m/uL 4.51 Hemoglobin 11.5 - 15.5 g/dL 13.2 Hematocrit 36.0 - 46.0 % 38.6 MCV 80.0 - 100.0 fL 85.6 MCH 26.0 - 34.0 pg 29.3 MCHC 30.5 - 36.0 g/dL 34.2 RDW-CV 11.5 - 15.0 % 11.8 Platelet Count 150 - 400 k/uL 256 MPV 9.0 - 12.7 fL 10.2 Absolute nRBC <0.01 k/uL <0.01 Hemoglobin A1C 4.3 - 5.6 % 5.1 Estimated Average Glucose mg/dL 100 TSH 0.510 - 4.300 mIU/L 1.400 Free T4 0.9 - 1.7 ng/dL 1.2 Free T3 2.3 - 4.1 pg/mL 3.9 Vitamin D 25 Hydroxy 31.0 - 80.0 ng/mL 30.3 (L) Vitamin B12 232 - 1,245 pg/mL 404 Legend: (H) High (L) Low RECENT IMAGING/DIAGNOSTICS: --MRI Brain w/wo contrast (04/23/23): Impression IMPRESSION: New mild paranasal sinus mucosal thickening. No acute intracranial process or abnormal enhancement with unremarkable focused IAC imaging without/with contrast. Cupola Melter: SYMONE Transcribe Date/Time: Apr 23 2023 2:28P Dictated by : SAM MURPHY MD This examination was interpreted and the report reviewed and electronically signed by: SAM MURPHY MD on Marcos 5 2023 2:32PM EST Results-Findings * * *Final Report* * * DATE OF EXAM: Apr 23 2023 2:04PM STM [id number] - MRI BRAIN WO/W IVCON / PROCEDURE REASON: Sensorineural hearing loss (SNHL) of left ear with unrestricted hearing of right * * * * Physician Interpretation * * * * EXAMINATION: MRI BRAIN WO/W IVCON HISTORY: Sensorineural hearing loss (SNHL) of left ear with unrestricted hearing of right ear TECHNIQUE: IAC protocol MRI without/with contrast the inclusion of whole brain axial FLAIR, diffusion, and post gadolinium axial T1. MQ: [id number] Contrast: 14 mL Dotarem IV COMPARISON: Sinus CT 12/27/2021. RESULT: Robust brain volume without structural abnormality or abnormal signal intensity. Negative for restricted diffusion, gross hemorrhage, mass effect, extra-axial collection, and abnormal enhancement. Focused IAC imaging revealing normal course and caliber of the 7th and 8th nerve complexes and remaining visualized cranial nerves with no pathologic enhancement. Unremarkable inner ear apparatus bilaterally as well as mastoids/petrous ridges/skull base. Up to mild paranasal sinus mucosal thickening with the right frontal sinus mucosal retention cyst/polyp, new since CT. Unremarkable orbits, marrow signal, and soft tissues. PMH: PAST MEDICAL HISTORY Diagnosis Date Calculus of kidney Migraine headache with aura PMDD (premenstrual dysphoric disorder) 2019 Syncope and collapse PSH: PAST SURGICAL HISTORY Procedure Laterality Date INSERTION OF IUD 10/24/2021 removed 09/14/2023 PAST SURGICAL HISTORY OF removal of renal calculi via lithotrypsy PAST SURGICAL HISTORY OF 06/24/2014 PCP of right thumb UNLISTED PROCEDURE LACRIMAL SYSTEM 02/18/2004 DR WHEELER CURRENT MEDS: Current Outpatient Medications Medication Sig DULoxetine (CYMBALTA) 60 mg capsule Take 1 capsule by mouth once daily. PARoxetine (PAXIL) 10 mg tablet Take 1 tablet by mouth once daily. metoprolol succinate ER (TOPROL XL) 50 mg 24 hr tablet Take 1.5 tablets by mouth once daily. lisinopril (ZESTRIL) 5 mg tablet Take 1 tablet by mouth once daily. naratriptan (AMERGE) 1 mg tablet Take 1 tablet (1 mg) by mouth as needed for migraine headache (see administration instructions). May repeat dose after 4 hours if needed. Maximum daily dose is 5 mg per day. benzonatate (TESSALON PERLE) 100 mg capsule Norethindrone, Contraceptive, (JOLENE) 0.35 mg tablet Take 1 tablet by mouth once daily. Cholecalciferol, Vitamin D3, 50 mcg (2,000 unit) cap Take 1 capsule by mouth once daily. Current Facility-Administered Medications Medication Dose Route Frequency perflutren lipid microspheres 1.3 mL in NaCl (PF) 0.9% 10 mL injection (DEFINITY) INTRAVENOUS DIRECTED PRN sodium chloride 0.9 % (flush) 10 mL (BD POSIFLUSH) 10 mL INTRAVENOUS DIRECTED PRN ALLERGIES: ALLERGIES Allergen Reactions Codeine Tramadol Itching, Other: See Comments Dizziness FMH: FAMILY HISTORY Problem Relation Age of Onset Hypertension Mother Started in mid-30's Hypertension Father No Known Problems Sister No Known Problems Brother Hypertension Maternal Grandmother Hypertension Maternal Grandfather Lipids Maternal Grandfather other (FIBROMYALGIA) Paternal Grandmother SOCIAL: Social History Tobacco Use Smoking status: Never Smokeless tobacco: Never Vaping Use Vaping Use: Never used Substance Use Topics Alcohol use: No Comment: rare Drug use: No REVIEW OF SYSTEMS: General: Denies fever or chills, Denies unintentional weight loss. Sleep: normal Mood: Variable Energy: Poor Stress: Normal Eyes: Glasses Ears: Hearing decreased L side chronically Mouth/Dentition: Grinds teeth CV: Palpitations Respiratory: No known problems GI: No known problems : No known problems Menstrual: Irregular menses Musculoskeletal: LBP and Neck pain Neurological: See HPI Psychiatric Disorders: Yes History of blood clots/bleeding disorder: No I have reviewed the Getachew Status Assessment responses and discussed these with the patient: yes. DO Te Mckeon DO [facility] [place] Department [facility] [address] [place] [address] Level of service: New level 4 (45-59 min). Time spent 50 min on the day of service, which included preparing to see the patient, [id number] patient care, completing clinical documentation, obtaining and/or reviewing separately obtained history, counseling and educating the patient/family/caregiver, ordering medications, tests, or procedures, communicating with other HCPs (not separately reported), independently interpreting results (not separately reported), and communicating results to the patient/family/caregiver. Medical Decision Making: Medical Decision Making Level: 1 - N/A I have communicated my name and active licensure. The patient's identity and physical location were verified at the time of this visit. Either the patient or their legal contact representative has been informed of the risks and benefits of -- and alternatives to -- treatment through a remote evaluation and consents to proceed with the evaluation remotely. cc: Shaila Hopkins [address] [facility] [address] Celso Freire [address] [place] [address] documented in this encounter [facility] 04-16-2024 Telephone encounter Note Sent on 02/26/24 with refills [facility] 04-16-2024 Miscellaneous Notes Sent on 02/26/24 with refills documented in this encounter [facility] 04-11-2024 Telephone encounter Note Pt called and is notified of providers results and instructions. Pt voices understanding. Vivian Abernathy RN [facility] 04-11-2024 Miscellaneous Notes Pt called and is notified of providers results and instructions. Pt voices understanding. Vivian Abernathy RN Left message with mom to have pt return call. Please call patient and let her know that she is + for mono. Continue with medication regimen as discussed. Increase fluids and rest. Please also remind her no contact sports or activity as we discussed at appointment. The fatigue associated with mono can last 1-2 months. Thank you, Little Cheng APRN.SENIOR ACCOUNT CLERK documented in this encounter [facility] 04-11-2024 Telephone encounter Note Left message with mom to have pt return call. [facility] 04-11-2024 Telephone encounter Note Please call patient and let her know that she is + for mono. Continue with medication regimen as discussed. Increase fluids and rest. Please also remind her no contact sports or activity as we discussed at appointment. The fatigue associated with mono can last 1-2 months. Thank you, Little Cheng APRN.SENIOR ACCOUNT CLERK [facility] 04-11-2024 History of Presen t illness Narrative Chief Complaint Patient presents with: ore throat, fatigue lft side abdoin hurts and lump nodes al: Last week was in to urgent care treated for strep and took all meds HPI Maricruz Tejada is a 18 year old female who presents here today for Above Complaints. Maricruz is an established patient of Dr. Tani DO. She is a new patient to me today. Concerns today... Express care visit on 03/31 d/t sore throat. Tested + for strep. Given amoxicillin antibiotic x 10 days. Pt reports to office today with swollen lymph node in neck, no energy, severe fatigue, and worsening sore throat. No fever but does report sweating nonstop. Feels much worse than she did at express care visit. Sore throat is much worse and pt reports white spots on tonsils. Reports able to swallow liquids but difficulty time swallowing food yesterday and today. No SOB but does report breathing out of nose mainly. No other concerns or complaints. Past medical history, appointments, medications, allergies reviewed. Previous Medical History PAST MEDICAL HISTORY Diagnosis Date Calculus of kidney Migraine headache with aura PMDD (premenstrual dysphoric disorder) 2019 Syncope and collapse Previous Surgical History PAST SURGICAL HISTORY Procedure Laterality Date INSERTION OF IUD 10/24/2021 removed 09/14/2023 PAST SURGICAL HISTORY OF removal of renal calculi via lithotrypsy PAST SURGICAL HISTORY OF 06/24/2014 PCP of right thumb UNLISTED PROCEDURE LACRIMAL SYSTEM 02/18/2004 DR WHEELER Family History FAMILY HISTORY Problem Relation Age of Onset Hypertension Mother Started in mid-30's Hypertension Father No Known Problems Sister No Known Problems Brother Hypertension Maternal Grandmother Hypertension Maternal Grandfather Lipids Maternal Grandfather other (FIBROMYALGIA) Paternal Grandmother Patient Allergies ALLERGIES Allergen Reactions Codeine Tramadol Itching, Other: See Comments Dizziness Current Medications Current Outpatient Medications on File Prior to Visit Medication Sig DULoxetine (CYMBALTA) 60 mg capsule Take 1 capsule by mouth once daily. PARoxetine (PAXIL) 10 mg tablet Take 1 tablet by mouth once daily. metoprolol succinate ER (TOPROL XL) 50 mg 24 hr tablet Take 1.5 tablets by mouth once daily. lisinopril (ZESTRIL) 5 mg tablet Take 1 tablet by mouth once daily. naratriptan (AMERGE) 1 mg tablet Take 1 tablet (1 mg) by mouth as needed for migraine headache (see administration instructions). May repeat dose after 4 hours if needed. Maximum daily dose is 5 mg per day. benzonatate (TESSALON PERLE) 100 mg capsule Norethindrone, Contraceptive, (JOLENE) 0.35 mg tablet Take 1 tablet by mouth once daily. Cholecalciferol, Vitamin D3, 50 mcg (2,000 unit) cap Take 1 capsule by mouth once daily. [DISCONTINUED] Norethindrone Acet-Ethinyl Est (,) 1-20 mg-mcg per tablet Take 1 tablet by mouth once daily. Current Facility-Administered Medications on File Prior to Visit Medication perflutren lipid microspheres 1.3 mL in NaCl (PF) 0.9% 10 mL injection (DEFINITY) sodium chloride 0.9 % (flush) 10 mL (BD POSIFLUSH) Social History Social History Tobacco Use Smoking status: Never Smokeless tobacco: Never Vaping Use Vaping Use: Never used Substance Use Topics Alcohol use: No Comment: rare Drug use: No REVIEW OF SYSTEMS: as above Reviewed relevant PMHx, PSHx, Social Hx, current medications and allergies. Review of Symptoms REVIEW OF SYSTEMS See HPI. EXAM: BP 132/68 (BP Site: Left Arm, BP Position: Sitting, BP Cuff Size: Regular Adult) Pulse 107 Temp 37.2 C (99 F) Resp 14 Wt 67 kg (147 lb 12.8 oz) LMP 08/27/2023 (Within Days) SpO2 98% BMI 26.18 kg/m General Appearance: Well appearing, alert, in no acute distress, well-hydrated, well nourished.. Skin: Skin color, texture, turgor normal, no suspicious rashes or lesions. Head: Normocephalic, no masses, lesions, tenderness or abnormalities. Ears: External ears normal, canals clear. Nose/Sinuses: Nares normal, septum midline, mucosa normal, no drainage or sinus tenderness. Oropharynx: Lips, mucosa, and tongue normal, teeth and gums normal, oropharynx normal and Positive findings: moderate oropharyngeal erythema, tonsillar hypertrophy 4+, exudates present. enlarged tonsillar lymph nodes R > L. Neck: Supple, no adenopathy; thyroid symmetric, normal size, no bruits. Lungs: Lungs clear to auscultation. No wheezing, rhonchi, rales.. Heart: RRR without murmur, gallop, or rubs. No ectopy. Health Maintenance List Asthma Action Plan Never done Asthma Control Test Never done Meningococcal B Vaccine: Consider Based On Risk(1 of 2 - Patient Seeks Protection) Never done Spirometry Never done Hepatitis C Screening Never done HIV Screening Never done BP Controlled (<130/80) Never done Behavioral Health Screening Never done Covid-19 Vaccine(2022- season) due on 04/11/2025 GC (Gonorrhea) Screening (-) due on 09/12/2024 Chlamydia Screening (18-) due on 09/12/2024 Annual PCP Team Chronic Disease Visit due on 04/11/2025 DTaP,Tdap,Td Vaccine(7 - Td or Tdap) due on 09/22/2025 Hepatitis B Vaccine Completed HPV Vaccine Completed Influenza Vaccine Completed ASSESSMENT/PLAN: 1. Strep throat - ICD9: 034.0, ICD10: J02.0 Strep + on 03/31 and symptoms worsening. Extremely enlarged tonsils 4+, almost touching. No tonsillar abscess seen, no uvula deviation. Switch antibiotic regimen to keflex BID x 10 days d/t no relief with amoxicillin. Steroid burst with prednisone d/t extreme swelling. Armstrong testing lab work today. Instructed pt if symptoms worsen at all, she becomes SOB, or unable to swallow/tolerate liquids, she needs to go ER immediately. Pt aware and understands. - antibiotic as written - Discussed supportive care treatment with fluids, rest and analgesia. - Contagious dz precautions discussed- including considered contagious until on antibiotics for 24 hours - The patient should follow up in 3-5 days if symptoms persist or worsen - Call back if drooling, increased temperature, symptoms of dehydration and/or still sick in one week - MONOTEST, INFECTIOUS MONO - CEPHALEXIN 500 MG CAPSULE - PREDNISONE 20 MG TABLET RTO as needed. Prescription instructions reviewed with patient as applicable. Potential red flag symptoms discussed with the patient. Reviewed appropriate action plan to take if red flag symptoms occur. Patient agreeable to treatment plan. Little Garcia APRN.SENIOR ACCOUNT CLERK [address] [place] [address] documented in this encounter [facility] 03-31-2024 History of Presen t illness Narrative Subjective HPI HPI Maricruz Tejada is a 18 year old female who presents today for CC of st, congestion, cough. This started 4 days ago. Has tried otc medication for relief. Symptoms are worsened by nothing. No sick exposures. Denies possibility of being . .Patient presents with: Ear Pain: Bilateral ear pain, cough and congestion x 4-5 days PAST MEDICAL HISTORY Diagnosis Date Calculus of kidney Migraine headache with aura PMDD (premenstrual dysphoric disorder) 2019 Syncope and collapse PAST SURGICAL HISTORY Procedure Laterality Date INSERTION OF IUD 10/24/2021 removed 09/14/2023 PAST SURGICAL HISTORY OF removal of renal calculi via lithotrypsy PAST SURGICAL HISTORY OF 06/24/2014 PCP of right thumb UNLISTED PROCEDURE LACRIMAL SYSTEM 02/18/2004 DR WHEELER ALLERGIES Codeine and Tramadol MEDICATIONS DULoxetine (CYMBALTA) 60 mg capsule^Take 1 capsule by mouth once daily.^Disp: 30 capsule^Rfl: 2 PARoxetine (PAXIL) 10 mg tablet^Take 1 tablet by mouth once daily.^Disp: 30 tablet^Rfl: 1 metoprolol succinate ER (TOPROL XL) 50 mg 24 hr tablet^Take 1.5 tablets by mouth once daily.^Disp: 135 tablet^Rfl: 3 lisinopril (ZESTRIL) 5 mg tablet^Take 1 tablet by mouth once daily.^Disp: 90 tablet^Rfl: 3 naratriptan (AMERGE) 1 mg tablet^Take 1 tablet (1 mg) by mouth as needed for migraine headache (see administration instructions). May repeat dose after 4 hours if needed. Maximum daily dose is 5 mg per day.^Disp: 9 tablet^Rfl: 0 baclofen 10 mg tablet^Take 1 tablet by mouth daily at bedtime for 7 days, THEN 2 tablets daily at bedtime.^Disp: 67 tablet^Rfl: 0 Norethindrone, Contraceptive, (JOLENE) 0.35 mg tablet^Take 1 tablet by mouth once daily.^Disp: 84 tablet^Rfl: 3 Cholecalciferol, Vitamin D3, 50 mcg (2,000 unit) cap^Take 1 capsule by mouth once daily.^Disp: ^Rfl: benzonatate (TESSALON PERLE) 100 mg capsule^^Disp: ^Rfl: [DISCONTINUED] Norethindrone Acet-Ethinyl Est (,) 1-20 mg-mcg per tablet^Take 1 tablet by mouth once daily.^Disp: 63 tablet^Rfl: 3 FAMILY HISTORY Problem Relation Age of Onset Hypertension Mother Started in mid-30's Hypertension Father No Known Problems Sister No Known Problems Brother Hypertension Maternal Grandmother Hypertension Maternal Grandfather Lipids Maternal Grandfather other (FIBROMYALGIA) Paternal Grandmother Social History Tobacco Use Smoking status: Never Smokeless tobacco: Never Vaping Use Vaping Use: Never used Substance Use Topics Alcohol use: No Comment: rare Drug use: No Review of Systems Constitutional: Negative for fever. HENT: Positive for congestion and sore throat. Negative for ear pain and nosebleeds. Respiratory: Positive for cough. Negative for shortness of breath and wheezing. Musculoskeletal: Negative for neck pain. Skin: Negative for itching and rash. Objective Blood pressure 146/84, pulse 77, temperature 37.1 C (98.8 F), temperature source Tympanic, resp. rate 18, weight 69.2 kg (152 lb 8.9 oz), last menstrual period 08/27/2023, SpO2 100%. Physical Exam Constitutional: General: She is not in acute distress. Appearance: She is not toxic-appearing or diaphoretic. HENT: Head: Normocephalic and atraumatic. Right Ear: Hearing, tympanic membrane, ear canal and external ear normal. Left Ear: Hearing, tympanic membrane, ear canal and external ear normal. Nose: Nose normal. Mouth/Throat: Lips: [place]. Mouth: Mucous membranes are moist. Pharynx: Uvula midline. Oropharyngeal exudate and posterior oropharyngeal erythema present. No pharyngeal swelling or uvula swelling. Eyes: General: Lids are normal. No scleral icterus. Right eye: No discharge. Left eye: No discharge. Conjunctiva/sclera: Conjunctivae normal. Pupils: Pupils are equal, round, and reactive to light. Neck: Trachea: Trachea normal. Cardiovascular: Rate and Rhythm: Normal rate and regular rhythm. Heart sounds: Normal heart sounds. Pulmonary: Effort: Pulmonary effort is normal. Breath sounds: Normal breath sounds. Musculoskeletal: Cervical back: Normal range of motion and neck supple. Lymphadenopathy: Cervical: Cervical adenopathy present. Right cervical: Superficial cervical adenopathy present. Left cervical: Superficial cervical adenopathy present. Skin: Findings: No rash. Neurological: Mental Status: She is alert and oriented to person, place, and time. ASSESSMENT/PLAN: 1. Strep throat - ICD9: 034.0, ICD10: J02.0 (primary diagnosis) - suspect strep - Group A strep molecular testing positive - antibiotic as written - Discussed supportive care treatment with fluids, rest and analgesia. - The patient should follow up in 3-5 days if symptoms persist or worsen - Call back if drooling, increased temperature, symptoms of dehydration and/or still sick in one week - AMOXICILLIN 500 MG CAPSULE 2. Sore throat - ICD9: 462, ICD10: J02.9 Pos, strep - ALERE STREP A TEST (AG) Kuldeep Tijerina APRN.MAYA documented in this encounter [facility] 02-26-2024 Miscellaneous Notes Patient called stating she requested the incorrect pharmacy. She would like this sent to the [facility] in [place] Please advise, Thank you The following approved medication requests have been transmitted electronically. Requested Prescriptions Signed Prescriptions Disp Refills metoprolol succinate ER (TOPROL XL) 50 mg 24 hr tablet 135 tablet 3 Sig: Take 1.5 tablets by mouth once daily. Authorizing Provider: DUSTIN MAHAJAN APRN.CNP Recently ordered but changing pharmacies 02/21/24 [facility] Dr. Tovar documented in this encounter [facility] 02-26-2024 Miscellaneous Notes Addended by: FRANCO MONCADA on: 02/26/2024 11:48 AM Modules accepted: Orders Patient called stating she requested the incorrect pharmacy. She would like this sent to the [facility] in [place] Please advise, Thank you The following approved medication requests have been transmitted electronically. Requested Prescriptions Signed Prescriptions Disp Refills lisinopril (ZESTRIL) 5 mg tablet 90 tablet 3 Sig: Take 1 tablet by mouth once daily. Authorizing Provider: DUSTIN MAHAJAN APRN.CNP [facility] 02/21/24 [facility] [address] Tovar documented in this encounter [facility] 02-26-2024 Miscellaneous Notes Patient called and states that prescriptions were sent to wrong pharmacy. Patient states that [facility] will not transfer prescriptions to other pharmacy. Denice Toscano RN documented in this encounter [facility] 02-26-2024 Miscellaneous Notes Patient has been identified by name and date of : Yes Patient phones for refill(s): Requested Prescriptions Pending Prescriptions Disp Refills DULoxetine (CYMBALTA) 60 mg capsule 30 capsule 2 Sig: Take 1 capsule by mouth once daily. Date of last office visit in primary care: 11/29/2023 Date of next office visit in primary care: Visit date not found. Please advise. Thank you. Edgardo Grider LPN. documented in this encounter [facility] 02-26-2024 Miscellaneous Notes Patient has been identified by name and date of : Yes Patient phones for refill(s): Requested Prescriptions Pending Prescriptions Disp Refills PARoxetine (PAXIL) 10 mg tablet 30 tablet 1 Sig: Take 1 tablet by mouth once daily. Date of last office visit in primary care: 11/29/2023 Date of next office visit in primary care: Visit date not found Please advise. Thank you. Edgardo Grider LPN. documented in this encounter [facility] 02-25-2024 History of Presen t illness Narrative Images from the original note were not included. General Neurology Outpatient Clinic - new patient evaluation Date: February 25, 2024 Patient Name: Maricruz Tejada Referring physician: No referring provider defined for this encounter. Primary physician: Celso Freire [address] [place] [address] Reason for Evaluation: Headaches HPI: The pt is a 18yo Right handed female with hx of - concussions Presenting for evaluation of headaches. Her mother joined visit via telephone with patient's permission. Per EMR, patient previously saw Dr. Knapp 09/28/2022 for same. Has hx of multiple concussions, headaches more frequent. Most recent concussion Feb without LOC. Metop helps reduce frequency (from PCP). 1x/week migraine. Throbbing, occipital, with nausea, photophobia, phonophobia. No aura. Lying down in bed helps. Worse with movement. Has trouble with concentration after concussions. Given maxalt for breakthrough. Per patient, she's had headaches over the last 7 years. There is a strong maternal family hx of migraines in her mother, maternal grandmother, and maternal cousin. Patient's on headaches started before her multiple concussions and have gradually worsened in intensity and frequency over the years. She does think a lot of the headaches do come from her neck which tends to be tight Description of headaches: occipital with radiation into her neck. Radiates to bilateral temples when really bad. More right sided than left Associated with: foggy vision, nausea, emesis Aura: none Time to peak pain: 1.5 hours Duration: 1-2 days Frequency: estimates 50-75% of a month with a headache, at least 50% of those are migrainous Triggers: unknown Alleviating factors: lying down, resting Menstrual pattern: no Previous preventives: not sure Current preventives: cymbalta 60mg daily, paxil 10mg daily, metop ER 50mg daily Previous abortive: ibuprofen, tylenol, excedrin (didn't help) Current abortive: maxalt 5mg: initially helped but now even 2 doses do not help She's also had multiple concussions since 8th grade and since the last 2 has noticed residual memory and mood changes. Her mother agrees that patient has slowed reaction time, trouble focusing/attention, more depressed, and reacts emotionally differently. She's never had cognitive therapy for the concussions List of concussions: - 8th grade: syncope at the top of the steps when she had a bad migraine. Lasted 8 months - basketball; head on araceli: no LOC, ~1mo - soccer ball hit her on the nose, ~2mo of symptoms - basketful, senior year of HS, was hit, +LOC, >8 months of symptoms - about 6 months after the basketball incident, was thrown from a horse, ~1mo of symptoms Prior neurological workup: 04/23/2023 MRI brain wwo OUTPATIENT MEDICATIONS Current Outpatient Medications on File Prior to Visit Medication Sig lisinopril (ZESTRIL) 10 mg tablet Take 0.5 tablets by mouth once daily. DULoxetine (CYMBALTA) 60 mg capsule take 1 capsule by mouth once daily PARoxetine (PAXIL) 10 mg tablet Take 1 tablet by mouth once daily. Cholecalciferol, Vitamin D3, 50 mcg (2,000 unit) cap Take 1 capsule by mouth once daily. Norethindrone Acet-Ethinyl Est (JUNEL ,) 1-20 mg-mcg per tablet Take 1 tablet by mouth once daily. metoprolol succinate ER (TOPROL XL) 50 mg 24 hr tablet Take 1 tablet by mouth once daily. Current Facility-Administered Medications on File Prior to Visit Medication perflutren lipid microspheres 1.3 mL in NaCl (PF) 0.9% 10 mL injection (DEFINITY) sodium chloride 0.9 % (flush) 10 mL (BD POSIFLUSH) MEDICAL HISTORY PAST MEDICAL HISTORY Diagnosis Date Calculus of kidney Migraine headache with aura PMDD (premenstrual dysphoric disorder) 2019 Syncope and collapse SURGICAL HISTORY PAST SURGICAL HISTORY Procedure Laterality Date INSERTION OF IUD 10/24/2021 removed 09/14/2023 PAST SURGICAL HISTORY OF removal of renal calculi via lithotrypsy PAST SURGICAL HISTORY OF 06/24/2014 PCP of right thumb UNLISTED PROCEDURE LACRIMAL SYSTEM 02/18/2004 DR WHEELER SOCIAL HISTORY Social History Tobacco Use Smoking status: Never Smokeless tobacco: Never Vaping Use Vaping Use: Never used Substance Use Topics Alcohol use: No Comment: rare Drug use: No FAMILY HISTORY FAMILY HISTORY Problem Relation Age of Onset Hypertension Mother Started in mid-30's Hypertension Father No Known Problems Sister No Known Problems Brother Hypertension Maternal Grandmother Hypertension Maternal Grandfather Lipids Maternal Grandfather other (FIBROMYALGIA) Paternal Grandmother ALLERGIES ALLERGIES Allergen Reactions Codeine Tramadol Itching, Other: See Comments Dizziness REVIEW OF SYSTEMS: See HPI PHYSICAL EXAM: LMP 08/27/2023 (Within Days) General appearance: Well appearing, alert, in no acute distress Neurological exam: Mental Status: Alert, oriented to person, place and time and Follows commands. Able to recall only 1/3 words without cues Cranial Nerves: visual bernal intact to confrontation, extraocular movements intact, facial sensation intact, face symmetric, no facial droop or ptosis, hearing intact to finger rub bilaterally, no dysarthria, palate elevate symmetrically, tongue protrudes midline, and shoulder shrug intact and symmetric. Motor: Right Upper: Left Upper: Deltoid: 5 Deltoid: 5 Triceps: 5 Triceps: 5 Biceps: 5 Biceps: 5 Technology Trainer: 5 Technology Trainer: 5 Finger abduction: 5 Finger abduction: 5 Finger adduction: 5 Finger adduction: 5 Right Lower: Left Lower: Iliopsoas: 5 Iliopsoas: 5 Knee flexor: 5 Knee flexor: 5 Knee extensor: 5 Knee extensor: 5 Dorsiflexion: 5 Dorsiflexion: 5 Plantarflexion: 5 Plantarflexion: 5 Motor Tone: Right Upper: Normal tone Left Upper: Normal tone Right Lower: Normal tone Left Lower: Normal tone Reflexes: 2/4 biceps, brachioradialis, patellars Sensation: intact BUE to touch, temperature, vibration, proprioception Coordination: Finger-to- nose-finger intact bilaterally and [id number] intact bilaterally. Gait: normal-based. Normal tiptoe, heel, tandem gait Romberg: neg LABS/DATA: Component Latest Ref Rng & Units 10/18/2023 Protein, Total 6.3 - 8.0 g/dL 7.7 Albumin 3.9 - 4.9 g/dL 4.5 Calcium 8.5 - 10.2 mg/dL 9.8 Bilirubin, Total 0.2 - 1.3 mg/dL 0.3 Alkaline Phosphatase 34 - 123 U/L 80 AST 13 - 35 U/L 17 ALT 7 - 38 U/L 13 Glucose 74 - 99 mg/dL 113 (H) BUN 7 - 21 mg/dL 9 Creatinine 0.58 - 0.96 mg/dL 0.68 Sodium 136 - 144 mmol/L 138 Potassium 3.7 - 5.1 mmol/L 4.0 Chloride 97 - 105 mmol/L 104 CO2 22 - 30 mmol/L 23 Anion Gap 9 - 18 mmol/L 11 eGFR >=60 mL/min/1.73m 128 WBC 3.70 - 11.00 k/uL 4.94 RBC 3.90 - 5.20 m/uL 4.51 Hemoglobin 11.5 - 15.5 g/dL 13.2 Hematocrit 36.0 - 46.0 % 38.6 MCV 80.0 - 100.0 fL 85.6 MCH 26.0 - 34.0 pg 29.3 MCHC 30.5 - 36.0 g/dL 34.2 RDW-CV 11.5 - 15.0 % 11.8 Platelet Count 150 - 400 k/uL 256 MPV 9.0 - 12.7 fL 10.2 Absolute nRBC <0.01 k/uL <0.01 Hemoglobin A1C 4.3 - 5.6 % 5.1 Estimated Average Glucose mg/dL 100 Vitamin D 25 Hydroxy 31.0 - 80.0 ng/mL 30.3 (L) Vitamin B12 232 - 1,245 pg/mL 404 IMAGIN04/23/2023 MRI brain wwo New mild paranasal sinus mucosal thickening. No acute intracranial process or abnormal enhancement with unremarkable focused IAC imaging without/with contrast. ASSESSMENT: The pt is a 18 year old female with a history of multiple concussions who presents with chronic migraines wo aura wo status migrainosus. 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 Her neurological examination does show weakness in delayed recall. MRI eduardo otherwise without secondary causes for headaches PLAN: - add baclofen 10mg qhs for migraine prevention, can also help with neck tightness. Uptitrate as needed/tolerated, side effect reviewed - switch from rizatriptan to naratriptan for abortive - ST for cognitive therapy - f/u with headache center as I'm moving away from [facility] I spent a total of 50 minutes on the date of the service which included preparing to see the patient, [id number] patient care, completing clinical documentation, obtaining and/or reviewing separately obtained history, performing a medically appropriate examination, counseling and educating the patient/family/caregiver, ordering medications, tests, or procedures, and independently interpreting results (not separately reported). Shaila Hopkins MD Staff, General Neurology Pager: [phone] CC: Referring Physician: No referring provider defined for this encounter. PCP: Celso Freire [address] [place] [address] documented in this encounter [facility] 02-21-2024 Note HNO ID: [id number] Author: CECI TOVAR, DO Service: ? Author Type: Physician Type: Progress Notes Filed: 02/21/2024 14:46 Note Text: [facility] PHONE VISIT DATE February 21, 2024 PRIMARY CARE PHYSICIAN: Celso Freire [address] [place] [address] HISTORY OF PRESENT ILLNESS: Ms. Tejada is a 18 year old female. The patient returns for follow-up via video visit due to history of tachycardia, syncope, probable autonomic dysfunction as well as hypertension. Since we have last saw her she improved diet and lifestyle and has lost 25 pounds. She states she feels improved but still continues have palpitations particularly at times with exercise. She has rare episodes of chest discomfort as previous but improved. She denies dyspnea exertion, orthopnea, paroxysmal nocturnal dyspnea, near-syncope or syncope. PLAN AND RECOMMENDATIONS: The patient appears improved on her current medical therapy but however continues to have elevations of tachycardia. She also notes that her blood pressure continues to spike. At this point in time we have therefore increased Toprol to 75 mg daily. Will follow-up with her in 3 months time for reevaluation. This can be a video visit as well. Dietary and lifestyle modification was emphasized at length. Review of Systems Constitutional: Negative for activity change and fatigue. HENT: Negative for ear pain and facial swelling. Eyes: Negative for pain and discharge. Respiratory: Negative for chest tightness and shortness of breath. Cardiovascular: Negative for chest pain, palpitations and leg swelling. Gastrointestinal: Negative for abdominal pain, blood in stool, nausea and vomiting. Endocrine: Negative for cold intolerance and heat intolerance. Genitourinary: Negative for frequency and hematuria. Musculoskeletal: Negative for arthralgias and gait problem. Skin: Negative for color change, pallor and rash. Allergic/Immunologic: Negative for immunocompromised state. Neurological: Negative for dizziness, syncope, light-headedness and headaches. Hematological: Negative for adenopathy. Does not bruise/bleed easily. Psychiatric/Behavioral: Negative for confusion. The patient is not nervous/anxious. PAST MEDICAL HISTORY Diagnosis Date Calculus of kidney Migraine headache with aura PMDD (premenstrual dysphoric disorder) 2019 Syncope and collapse PAST SURGICAL HISTORY Procedure Laterality Date INSERTION OF IUD 10/24/2021 removed 09/14/2023 PAST SURGICAL HISTORY OF removal of renal calculi via lithotrypsy PAST SURGICAL HISTORY OF 06/24/2014 PCP of right thumb UNLISTED PROCEDURE LACRIMAL SYSTEM 02/18/2004 DR WHEELER Social History Tobacco Use Smoking status: Never Smokeless tobacco: Never Vaping Use Vaping Use: Never used Substance Use Topics Alcohol use: No Comment: rare Drug use: No FAMILY HISTORY Problem Relation Age of Onset Hypertension Mother Started in mid-30's Hypertension Father No Known Problems Sister No Known Problems Brother Hypertension Maternal Grandmother Hypertension Maternal Grandfather Lipids Maternal Grandfather other (FIBROMYALGIA) Paternal Grandmother ALLERGIES Allergen Reactions Codeine Tramadol Itching, Other: See Comments Dizziness CURRENT MEDICATIONS: benzonatate (TESSALON PERLE) 100 mg capsuleDisp: Rfl: rizatriptan 5 mg disintegrating tabletTake 1 tablet (5 mg) by mouth as needed. May repeat in 2 hours if neededDisp: 9 tabletRfl: 2 Norethindrone, Contraceptive, (JOLENE) 0.35 mg tabletTake 1 tablet by mouth once daily.Disp: 84 tabletRfl: 3 lisinopril (ZESTRIL) 10 mg tabletTake 0.5 tablets by mouth once daily.Disp: 90 tabletRfl: 1 DULoxetine (CYMBALTA) 60 mg capsuletake 1 capsule by mouth once dailyDisp: 30 capsuleRfl: 2 PARoxetine (PAXIL) 10 mg tabletTake 1 tablet by mouth once daily.Disp: 30 tabletRfl: 1 Cholecalciferol, Vitamin D3, 50 mcg (2,000 unit) capTake 1 capsule by mouth once daily.Disp: Rfl: [DISCONTINUED] Norethindrone Acet-Ethinyl Est (JUNE12/08, ,) 1-20 mg-mcg per tabletTake 1 tablet by mouth once daily.Disp: 63 tabletRfl: 3 metoprolol succinate ER (TOPROL XL) 50 mg 24 hr tabletTake 1 tablet by mouth once daily.Disp: 90 tabletRfl: 1 The patient presents via video visit for approximately 22 minutes of all inclusive time with no other apparent persons present. She consented to the visit. Ceci Tovar DO, FACC, FAC Clinical and Preventive Cardiology Department of Medicine and Division of Cardiology, [facility] Staff Planting Material Unloader, Jim and Iliana Espinosa Department of Cardiovascular Medicine/Heart and Vascular [place], [facility] Clinical Battery Charger Tester Profressor of Medicine, [facility] Please note: This note has been pr (more content not included)... [facility] 02-21-2024 History of Presen t illness Narrative [facility] SECTION OF REGIONAL CARDIOLOGY [facility] PHONE VISIT DATE February 21, 2024 PRIMARY CARE PHYSICIAN: Celso Freire [address] [place] [address] HISTORY OF PRESENT ILLNESS: Ms. Tejada is a 18 year old female. The patient returns for follow-up via video visit due to history of tachycardia, syncope, probable autonomic dysfunction as well as hypertension. Since we have last saw her she improved diet and lifestyle and has lost 25 pounds. She states she feels improved but still continues have palpitations particularly at times with exercise. She has rare episodes of chest discomfort as previous but improved. She denies dyspnea exertion, orthopnea, paroxysmal nocturnal dyspnea, near-syncope or syncope. PLAN AND RECOMMENDATIONS: The patient appears improved on her current medical therapy but however continues to have elevations of tachycardia. She also notes that her blood pressure continues to spike. At this point in time we have therefore increased Toprol to 75 mg daily. Will follow-up with her in 3 months time for reevaluation. This can be a video visit as well. Dietary and lifestyle modification was emphasized at length. Review of Systems Constitutional: Negative for activity change and fatigue. HENT: Negative for ear pain and facial swelling. Eyes: Negative for pain and discharge. Respiratory: Negative for chest tightness and shortness of breath. Cardiovascular: Negative for chest pain, palpitations and leg swelling. Gastrointestinal: Negative for abdominal pain, blood in stool, nausea and vomiting. Endocrine: Negative for cold intolerance and heat intolerance. Genitourinary: Negative for frequency and hematuria. Musculoskeletal: Negative for arthralgias and gait problem. Skin: Negative for color change, pallor and rash. Allergic/Immunologic: Negative for immunocompromised state. Neurological: Negative for dizziness, syncope, light-headedness and headaches. Hematological: Negative for adenopathy. Does not bruise/bleed easily. Psychiatric/Behavioral: Negative for confusion. The patient is not nervous/anxious. PAST MEDICAL HISTORY Diagnosis Date Calculus of kidney Migraine headache with aura PMDD (premenstrual dysphoric disorder) 2019 Syncope and collapse PAST SURGICAL HISTORY Procedure Laterality Date INSERTION OF IUD 10/24/2021 removed 09/14/2023 PAST SURGICAL HISTORY OF removal of renal calculi via lithotrypsy PAST SURGICAL HISTORY OF 06/24/2014 PCP of right thumb UNLISTED PROCEDURE LACRIMAL SYSTEM 02/18/2004 DR WHEELER Social History Tobacco Use Smoking status: Never Smokeless tobacco: Never Vaping Use Vaping Use: Never used Substance Use Topics Alcohol use: No Comment: rare Drug use: No FAMILY HISTORY Problem Relation Age of Onset Hypertension Mother Started in mid-30's Hypertension Father No Known Problems Sister No Known Problems Brother Hypertension Maternal Grandmother Hypertension Maternal Grandfather Lipids Maternal Grandfather other (FIBROMYALGIA) Paternal Grandmother ALLERGIES Allergen Reactions Codeine Tramadol Itching, Other: See Comments Dizziness CURRENT MEDICATIONS: benzonatate (TESSALON PERLE) 100 mg capsule^^Disp: ^Rfl: rizatriptan 5 mg disintegrating tablet^Take 1 tablet (5 mg) by mouth as needed. May repeat in 2 hours if needed^Disp: 9 tablet^Rfl: 2 Norethindrone, Contraceptive, (JOLENE) 0.35 mg tablet^Take 1 tablet by mouth once daily.^Disp: 84 tablet^Rfl: 3 lisinopril (ZESTRIL) 10 mg tablet^Take 0.5 tablets by mouth once daily.^Disp: 90 tablet^Rfl: 1 DULoxetine (CYMBALTA) 60 mg capsule^take 1 capsule by mouth once daily^Disp: 30 capsule^Rfl: 2 PARoxetine (PAXIL) 10 mg tablet^Take 1 tablet by mouth once daily.^Disp: 30 tablet^Rfl: 1 Cholecalciferol, Vitamin D3, 50 mcg (2,000 unit) cap^Take 1 capsule by mouth once daily.^Disp: ^Rfl: [DISCONTINUED] Norethindrone Acet-Ethinyl Est (,) 1-20 mg-mcg per tablet^Take 1 tablet by mouth once daily.^Disp: 63 tablet^Rfl: 3 metoprolol succinate ER (TOPROL XL) 50 mg 24 hr tablet^Take 1 tablet by mouth once daily.^Disp: 90 tablet^Rfl: 1 The patient presents via video visit for approximately 22 minutes of all inclusive time with no other apparent persons present. She consented to the visit. Ceci Tovar DO, FACC, FAC Clinical and Preventive Cardiology Department of Medicine and Division of Cardiology, [facility] Staff Planting Material Unloader, Adelina Espinosa Department of Cardiovascular Medicine/Heart and Vascular [place], [facility] Clinical Battery Charger Tester Profressor of Medicine, [facility] Please note: This note has been produced using speech recognition software and may contain errors related to that system including nicholas, punctuation, spelling, words, gender and phrases that may be inappropriate. documented in this encounter [facility] 02-21-2024 Miscellaneous Notes Patient had appt virtually w/ Dr Tovar today. Needs 3 month f/u visit scheduled with Dr Tovar. Thank you! Trevor Marsh CMA documented in this encounter [facility] 01-26-2024 History of Presen t illness Narrative Subjective Nasal Congestion Associated symptoms include congestion and coughing. Pertinent negatives include no chills, ear pain, shortness of breath or sore throat. Maricruz Tejada is a 18 year old female who presents with one week of nasal congestion and drainage, productive cough, sinus pressure. She was seen at an urgent care after 2 days of symptoms. She tested negative for influenza and was prescribed tessalon perles. Most symptoms have resolved but cough and congestion have persisted. She has not had a fever. Review of Systems Constitutional: Negative for chills and fever. HENT: Positive for congestion and sinus pain. Negative for ear pain and sore throat. Respiratory: Positive for cough and sputum production. Negative for shortness of breath. Cardiovascular: Negative. Musculoskeletal: Negative for myalgias. BP 142/90 Pulse 86 Temp 36.9 C (98.4 F) Resp 16 Wt 70.5 kg (155 lb 6.8 oz) LMP 08/27/2023 (Within Days) SpO2 96% BMI 27.53 kg/m PAST MEDICAL HISTORY Diagnosis Date Calculus of kidney Migraine headache with aura PMDD (premenstrual dysphoric disorder) 2019 Syncope and collapse PAST SURGICAL HISTORY Procedure Laterality Date INSERTION OF IUD 10/24/2021 removed 09/14/2023 PAST SURGICAL HISTORY OF removal of renal calculi via lithotrypsy PAST SURGICAL HISTORY OF 06/24/2014 PCP of right thumb UNLISTED PROCEDURE LACRIMAL SYSTEM 02/18/2004 DR WHEELER ALLERGIES Codeine and Tramadol MEDICATIONS Norethindrone, Contraceptive, (JOLENE) 0.35 mg tablet^Take 1 tablet by mouth once daily.^Disp: 84 tablet^Rfl: 3 lisinopril (ZESTRIL) 10 mg tablet^Take 0.5 tablets by mouth once daily.^Disp: 90 tablet^Rfl: 1 DULoxetine (CYMBALTA) 60 mg capsule^take 1 capsule by mouth once daily^Disp: 30 capsule^Rfl: 2 PARoxetine (PAXIL) 10 mg tablet^Take 1 tablet by mouth once daily.^Disp: 30 tablet^Rfl: 1 Cholecalciferol, Vitamin D3, 50 mcg (2,000 unit) cap^Take 1 capsule by mouth once daily.^Disp: ^Rfl: metoprolol succinate ER (TOPROL XL) 50 mg 24 hr tablet^Take 1 tablet by mouth once daily.^Disp: 90 tablet^Rfl: 1 benzonatate (TESSALON PERLE) 100 mg capsule^^Disp: ^Rfl: rizatriptan 5 mg disintegrating tablet^Take 1 tablet (5 mg) by mouth as needed. May repeat in 2 hours if needed^Disp: 9 tablet^Rfl: 2 doxycycline (VIBRA-TABS) 100 mg tablet^Take 1 tablet by mouth two times a day for 7 days.^Disp: 14 tablet^Rfl: 0 [DISCONTINUED] Norethindrone Acet-Ethinyl Est (,) 1-20 mg-mcg per tablet^Take 1 tablet by mouth once daily.^Disp: 63 tablet^Rfl: 3 FAMILY HISTORY Problem Relation Age of Onset Hypertension Mother Started in mid-30's Hypertension Father No Known Problems Sister No Known Problems Brother Hypertension Maternal Grandmother Hypertension Maternal Grandfather Lipids Maternal Grandfather other (FIBROMYALGIA) Paternal Grandmother Social History Tobacco Use Smoking status: Never Smokeless tobacco: Never Vaping Use Vaping Use: Never used Substance Use Topics Alcohol use: No Comment: rare Drug use: No Objective Physical Exam Vitals and nursing note reviewed. Constitutional: General: She is not in acute distress. Appearance: Normal appearance. She is not ill-appearing. HENT: Right Ear: Tympanic membrane, ear canal and external ear normal. Left Ear: Tympanic membrane, ear canal and external ear normal. Nose: Mucosal edema, congestion and rhinorrhea present. Mouth/Throat: Mouth: Mucous membranes are moist. Pharynx: Oropharynx is clear. Uvula midline. No oropharyngeal exudate or posterior oropharyngeal erythema. Cardiovascular: Rate and Rhythm: Normal rate and regular rhythm. Heart sounds: Normal heart sounds. Pulmonary: Effort: Pulmonary effort is normal. No respiratory distress. Breath sounds: Normal breath sounds. No wheezing or rales. Musculoskeletal: Cervical back: Neck supple. Lymphadenopathy: Cervical: No cervical adenopathy. Skin: General: Skin is warm and dry. Findings: No erythema or rash. Neurological: Mental Status: She is alert. ASSESSMENT/PLAN: 1. History of migraine - ICD9: V12.49, ICD10: Z86.69 (primary diagnosis) - RIZATRIPTAN 5 MG DISINTEGRATING TABLET 2. Bacterial sinusitis - ICD9: 473.9, 041.9, ICD10: J32.9, B96.89 - Will begin treatment with as per antibiotic as written, see orders - The patient should also be given flonase nasal spray for the first 5-7 days of treatment. - Supportive care with plenty of fluids, rest, and analgesia prn. - DOXYCYCLINE HYCLATE 100 MG TABLET - Follow-up with your PCP in 3-5 days if symptoms have not improved or sooner if symptoms worsen - Discussed red flags and need for immediate medical evaluation if any occur. - Discussed supportive care treatment with fluids, rest and analgesia. - Discussed expected course of illness Mary Crum APRN.CNP documented in this encounter [facility] 01-26-2024 Instructions Mary Crum APRN.CNP - 01/26/2024 3:04 PM EST Images from the original note were not included. ASSESSMENT/PLAN: 1. History of migraine - ICD9: V12.49, ICD10: Z86.69 (primary diagnosis) - RIZATRIPTAN 5 MG DISINTEGRATING TABLET 2. Bacterial sinusitis - ICD9: 473.9, 041.9, ICD10: J32.9, B96.89 - Will begin treatment with as per antibiotic as written, see orders - The patient should also be given flonase nasal spray for the first 5-7 days of treatment. - Supportive care with plenty of fluids, rest, and analgesia prn. - DOXYCYCLINE HYCLATE 100 MG TABLET - Follow-up with your PCP in 3-5 days if symptoms have not improved or sooner if symptoms worsen - Discussed red flags and need for immediate medical evaluation if any occur. - Discussed supportive care treatment with fluids, rest and analgesia. - Discussed expected course of illness Mary Crum APRN.CNP Adult Sinusitis Patient Education What is Sinusitis? Sinusitis [akap-bkq-iioh-tis] is inflammation of the sinuses or swelling of the lining of the sinus cavity or nose. During an infection the sinuses become blocked with fluid causing swelling of the lining of the sinuses. Symptoms: (viral and bacterial infections) Stuffy nose Runny nose Postnasal drip Fever Toothache Headache Tiredness Cough Sore throat Face and head pressure and or pain Common causes: 98% of sinus infections are viral caused by viruses. Risk Factors of Sinusitis Include: Allergies, air pollution, indoor humidity and outdoor temperature changes, andstructural changes in the nose may contribute to sinus pain, pressure and congestion. When to get help? Temperature greater than 100.4 F Symptoms lasting more than 10 days or worsening symptoms greater than 7-10 days. If you do not improve or worsen after a course of antibiotics, you should be re-examined. Diagnosis and Treatment: Your healthcare provider will ask a number of questions about your symptoms and how long they have occurred. If symptoms of sinusitis persist greater than 10 days, it is possible you have a bacterial sinus infection and an antibiotic is prescribed. If it is viral, antibiotics will not help. You may be instructed to take [id number] medications for symptoms. including fever reducers acetaminophen or ibuprofen, nasal saline spray, cough and cold preparations and decongestants as prescribed by the physician, nurse practitioner or physician account management assistant. Self-Care and Prevention: Rest Fluids for hydration Good hand washing Humidifier Avoid smoking and exposure to second hand smoke Avoid sick contacts documented in this encounter [facility] 01-24-2024 Miscellaneous Notes Addended by: EMELY HANDY on: 01/24/2024 03:09 PM Modules accepted: Orders Addended by: ALEXANDRIA FERNANDEZ on: 01/24/2024 02:23 PM Modules accepted: Orders Patient has called the pharmacy and they are unable to transfer her prescription. Patient asking for a new script to be sent, pharmacy updated. Alexandria Fernandez RN Gabriele Alcantara, Your message has been forwarded to the provider for review. Thank you for using My Chart! documented in this encounter [facility] 01-17-2024 Miscellaneous Notes Attempted to reach patient- sent to voicemail. Message left informing patient of cancellation and advise to follow up with Dr Knapp who she has seen before. Advised to call the [facility] [place] to reschedule appointment. Neetu Burgos ----- Message from Marisela Gonsalez RN sent at 01/17/2024 12:48 PM EST ----- Patient is scheduled for migraine with Dr. Stephenson 0800 01/31. Should be general neurology, has seen Aria previously. Please assist with scheduling with appropriate provider and cancel appointment with [facility]. Thank you, ~ Marisela documented in this encounter [facility] 01-11-2024 Miscellaneous Notes Called patient, no answer, left VM stating appt cancellation. Stated for patient to call back to reschedule documented in this encounter [facility] 12-28-2023 History of Presen t illness Narrative Associated Order(s): Large Joint Arthro/Inj: R subacromial bursa Post-Procedure Diagnose(s): Acute pain of right shoulder Images from the original note were not included. SERVICE DATE: December 28, 2023 PCP: Celso Freire DO Subjective Patient ID: Maricruz is a 18 year old female. Chief Complaint: Patient presents with: right shoulder: Right shoulder pain Referred by Emely Handy APRN Xray 12/15/2023 PAIN EVALUATION 12/28/2023 1034 Pain Level: 7 Pain gets worse with movement Pain Location: Shoulder-Right Description: Shooting Duration Amount of Time: 3 Duration Units: Weeks Frequency: Continuous Intervention/Comfort measure: Medication;Reposition;Cold;Heat Comments: Nico Snider HPI 18 y/o F reports acute right shoulder injury. She has a history of chronic shoulder pain and clicking, but any recent incident when she was drugged by a horse she felt significantly worsening symptoms. She describes painful arc of motion, difficulty with lifting overhead, feeling as though her shoulder is unstable. Review of Systems ACTIVE PROBLEM LIST Tabor's Fracture of Base of Metacarpal of Right Thumb Exercise-Induced Asthma Hearing Difficulty of Left Ear Acute Pharyngitis, Unspecified Animal-Manan Injured By Fall From Or Being Thrown From Horse in Noncollision Accident, Initial Encounter Abdominal Contusion Concussion With Brief (Less Than One Hour) Loss of Consciousness Derangement of Right Knee Knee Injury Sore Throat Strain of Neck Muscle Strain of Right Rotator Cuff Capsule PAST MEDICAL HISTORY Diagnosis Date Calculus of kidney PMDD (premenstrual dysphoric disorder) 2019 Syncope and collapse PAST SURGICAL HISTORY Procedure Laterality Date INSERTION OF IUD 10/24/2021 removed 09/14/2023 PAST SURGICAL HISTORY OF removal of renal calculi via lithotrypsy PAST SURGICAL HISTORY OF 06/24/2014 PCP of right thumb UNLISTED PROCEDURE LACRIMAL SYSTEM 02/18/2004 DR WHEELER FAMILY HISTORY Problem Relation Age of Onset Hypertension Mother Started in mid-30's Hypertension Father No Known Problems Sister No Known Problems Brother Hypertension Maternal Grandmother Hypertension Maternal Grandfather Lipids Maternal Grandfather other (FIBROMYALGIA) Paternal Grandmother Social History Tobacco Use Smoking status: Never Smokeless tobacco: Never Vaping Use Vaping Use: Never used Substance Use Topics Alcohol use: No Comment: rare Drug use: No ALLERGIES Allergen Reactions Codeine Tramadol Itching, Other: See Comments Dizziness MEDICATIONS: lisinopril (ZESTRIL) 10 mg tablet^Take 0.5 tablets by mouth once daily.^Disp: 90 tablet^Rfl: 1 DULoxetine (CYMBALTA) 60 mg capsule^take 1 capsule by mouth once daily^Disp: 30 capsule^Rfl: 2 PARoxetine (PAXIL) 10 mg tablet^Take 1 tablet by mouth once daily.^Disp: 30 tablet^Rfl: 1 Cholecalciferol, Vitamin D3, 50 mcg (2,000 unit) cap^Take 1 capsule by mouth once daily.^Disp: ^Rfl: Norethindrone Acet-Ethinyl Est (JUNE12/08, ,) 1-20 mg-mcg per tablet^Take 1 tablet by mouth once daily.^Disp: 63 tablet^Rfl: 3 metoprolol succinate ER (TOPROL XL) 50 mg 24 hr tablet^Take 1 tablet by mouth once daily.^Disp: 90 tablet^Rfl: 1 Allergies, medications, past surgical history, family history and past medical history were reviewed per this encounter. Objective Ortho Exam 18-year-old female, alert, no acute distress. Evaluation of the right shoulder shows restricted range of motion due to pain with abduction at 110 degrees, internal rotation with posterior extension limited to L5, positive empty can sign. Positive drop arm test. Positive Pascual test. There is laxity of the glenohumeral joint with AP glide. Assessment/Plan ASSESSMENT Diagnosis Acute right shoulder injury-suspect injury to the glenoid labrum Office Visit on 12/28/23 XR SHOULDER GENERAL 3V OR MORE AP/TRUE AP/OTHER RIGHT CONSULT TO ORTHOPAEDICS PLAN Patient states that she is moving out of the area in 2 days.. He would like some acute treatment for symptom relief but also instruction on shoulder rehabilitation exercises. Handout is given for shoulder exercises Large Joint Arthro/Inj: R subacromial bursa Informed Consent Consent Obtained: Verbal Monroe Protocol SIGN IN TIME OUT 12/28/2023 11:17 AM The procedure site was prepped in the usual sterile fashion. Site: R subacromial bursa Medications: 40 mg triamcinolone acetonide 40 mg/mL Anesthetics: 4 mL lidocaine (PF) 10 mg/mL (1 %) Outcome: Tolerated well, no immediate complications Post-injection instructions were reviewed with the patient and the patient voiced understanding of these instructions. FOLLOW-UP: No follow-ups on file. SIGNATURE: Federico Monroy DO PATIENT NAME: Maricruz Tejada DATE: December 28, 2023 TIME: 11:06 AM Patient presents with: right shoulder: Right shoulder pain Referred by Emely Handy APRN Xray 12/15/2023 Patient is here with right shoulder pain. States she injured it her senior year (2021) playing basketball. She didn't have any imaging done at that time. She said it felt like it got better. 3 weeks ago she was dragged by a horse and now the shoulder has started hurting in the same place again. The patient states the pain is worse this time with a popping sensation more often. Patient is right handed. 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 AMB ROOMING INTAKE FLOWSHEET DATA Pain Pain Level: 7 (Pain gets worse with movement) Pain Location: Shoulder-Right Description: Shooting Duration Amount of Time: 3 Duration Units: Weeks Frequency: Continuous Intervention/Comfort measure: Medication, Reposition, Cold, Heat Comments: Nico Snider RN documented in this encounter [facility] 12-26-2023 Miscellaneous Notes [place] documented in this encounter [facility] 12-26-2023 Miscellaneous Notes Patient has been identified by name and date of : Patient phones for refill(s): Requested Prescriptions Pending Prescriptions Disp Refills DULoxetine (CYMBALTA) 60 mg capsule [Pharmacy Med Name: DULOXETINE HCL DR 60 MG CAP] 30 capsule 2 Sig: take 1 capsule by mouth once daily Date of last office visit in primary care: 11/29/2023 Date of next office visit in primary care: 02/25/2024 Please advise. Thank you. Leigh Betancourt LPN. documented in this encounter [facility] 12-15-2023 History of Presen t illness Narrative Radiology Service Progress Note PATIENT NAME: Maricruz Tejada DATE OF SERVICE: December 15, 2023 TIME: 9:41 AM PATIENT IDENTITY VERIFICATION COMPLETED USING TWO (2) IDENTIFIERS: Name and Date of confirmed by patient verbally. FALL SCREENING: Has the patient had 2 falls in the last year or 1 fall with injury or currently using an Ambulatory Assistive Device (Walker, Cane, Wheelchair, Crutches, etc.)? No PATIENT GENDER DATA: Female. status: : No status: NO. PATIENT RELEVANT IMPLANT DATA REVIEWED: Not Applicable PATIENT PRESENTS WITH AN IMPLANTABLE OR ATTACHED RECOVERY ENGINEER: No RADIOLOGY DEPARTMENT: General X-ray: Exam(s) Completed: Upper Extremity X-Ray(s): Clavicle, right PERIPHERAL IV DATA: Not applicable SIGNED BY: RT Timothy(R) December 15, 2023 9:41 AM documented in this encounter [facility] 12-07-2023 Note HNO ID: [id number] Author: CECI TOVAR, DO Service: ? Author Type: Physician Type: Progress Notes Filed: 12/07/2023 17:09 Note Text: [facility] SECTION OF REGIONAL CARDIOLOGY [facility] OUTPATIENT VISIT DATE December 07, 2023 PRIMARY CARE PHYSICIAN: Celso Freire [address] [place] [address] HISTORY OF PRESENT ILLNESS: Ms. Tejada is a 18 year old female. The patient presents for evaluation treatment options of tachycardia with associated syncope and collapse. This has happened multiple times in multiple different situations with prolonged sitting or standing in the past several months. The patient has a history of trauma with 3 concussions the last the worst of which were at the end of her high school career while playing basketball. As a result, her senior year was very difficult with difficulty concentrating and taking her classes and having her therefore have bad grades. She notes at times feeling her heart race. For 1 particular situation recently she had so driving and actually had a detailed box. She additionally has a stressful environment as her parents are going through divorce for which unfortunately her father is an alcoholic. She denies chest discomfort, dyspnea on exertion, orthopnea or paroxysmal nocturnal dyspnea. The patient is single, lives at home with her parents, no children. She is a non-smoker essentially nondrinker. She is usually skips breakfast and eats meals as she and the knows where she works in a jar at the time. She has little if any fruits or vegetables. All of her food is usually processed and last made at home by her parents. She tries to drink approximately 64 ounces of water a day but has at least 40 upwards and 80 ounces of regular Coke daily as well. She has no difficulty with sleep per se but does not necessarily wake up feeling rested. She is currently doing no exercise. 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 In the past couple years the patient has apparently developed hypertension? She has been placed on antihypertensive medication and ironically since being on lisinopril, she has had her syncopal events. Recent echocardiogram demonstrated structurally normal heart. Recent telemetry monitoring demonstrated appropriate heart rate variability and no significant dysrhythmias. Cardiac risk factors: None Impression: 1. Tachycardia 2. Syncope and collapse 3. Palpitations 4. Borderline if any abnormal tilt table test 6. History of multiple concussions 6. History of migraines 7. Hypertension? PLAN AND RECOMMENDATIONS: The patient has syncope with probable autonomic dysfunction. She has had normal noninvasive testing without structural heart disease, grossly abnormal tilt table test nor dysrhythmia with a monitoring manager. With monitoring, she had a normal resting heart rate and therefore we believe that she does not have POTS. She has a rather a great deal of stress and may suffered from PTSD to some degree. She is also been diagnosed in the past with potential ADD. We discussed the role counseling may help in her situation. For now we are worried that the lisinopril may be actually worsening things for which we have cut back the dose to 5 mg daily. We would allow some mild hypertension. Her case. Certainly she is in no way following DASH diet or any type of diet that would be appropriate for someone with a diagnosis of hypertension. We discussed that at length. We discussed the following diet and lifestyle changes to include: 1. Appropriate salt. Currently she is utilizing too much salt or sodium in her diet 2. Hydration up to a gallon of regular water per day 3. Reduction in substances which would cause stimulation of her heart rate such as caffeine 4. Reduction of substances which would cause dehydration such as caffeine 5. Adequate amount of protein intake of at least 70 g/day 6. Regular routine particular with eating breakfast lunch and dinner and appropriately eating heart healthy foods with incorporation of fresh vegetables and fruit 7. Good sleep hygiene, we may need to consider evaluation for sleep disorder in the future 8. Resumption of regular exercise with eventual incorporation of resistance training. For now she may start gentle walking or even slow jogging. She can try doing some of the drills with her basketball team for instance. Will follow-up with her in a couple months time for repeat evaluation of the above including the change in her medications, diet and lifestyle changes. She and her mother voiced understanding. Will leave further evaluation and treatment regarding potential counseling to your discretion. Vitals: BP 138/96 Pulse 104 Ht 160 cm (5' 3) Wt 72.1 kg (158 lb 15.2 oz) LMP 08/27/2023 (Within Days) SpO2 98% BMI 28.16 kg/m? Physical Exam Vital (more content not included)... [facility] 10-15-2023 Miscellaneous Notes Patient has been identified by name and date of : Patient phones for refill(s): Requested Prescriptions Pending Prescriptions Disp Refills lisinopril (ZESTRIL) 10 mg tablet [Pharmacy Med Name: LISINOPRIL 10 MG TABLET] 90 tablet 1 Sig: TAKE 1 TABLET BY MOUTH EVERY DAY Date of last office visit in primary care: 10/04/2023 Date of next office visit in primary care: 10/26/2023 Last 2 Encounter Wt Readings: Date: Wt: 10/04/2023 72.9 kg (160 lb 12.8 oz) 09/20/2023 74.2 kg (163 lb 9.6 oz) Previous labs/tests for medication: Not applicable Please advise. Thank you. Leigh Betancourt LPN. documented in this encounter [facility] 10-05-2023 Miscellaneous Notes The following approved medication requests have been transmitted electronically. Requested Prescriptions Signed Prescriptions Disp Refills DULoxetine (CYMBALTA) 60 mg capsule 30 capsule 2 Sig: Take 1 capsule by mouth once daily. Authorizing Provider: KELSI BERMUDEZ busPIRone (BUSPAR) 5 mg tablet 30 tablet 1 Sig: Take 1 tablet by mouth three times a day as needed. Authorizing Provider: KELSI BERMUDEZ APRN.SENIOR ACCOUNT CLERK Pt okay to increase Lisinopril to 20 mg. Instructed to continue to monitor and write down BP's and pulse readings and bring them to her next appt. Appt made on 10/26 at 1000 with Kelsi Bermudez. Pt agreeable to increasing her Cymbalta to 60 mg and to also get a prescription for something to take for anxiety/panic. Pt would like prescriptions to be sent to [facility] in [place]. Left message to return call Naomy Rivers Please let Maricruz know that I would like her to increase her lisinopril from 10mg to 20mg daily. I would like her to still record her blood pressures and heart rate and bring these results to her next appt in about 3 weeks. Is she willing to increase her Cymbalta dose? I do feel that some of her sx she is having are r/t some anxiety. She is currently taking 40mg (two 20mg capsules) daily. I would recommend we increase her to 60mg daily. Also would she be willing to try an as needed medication to help with anxiety/panic when she gets into one of these episodes to see if this helps calm things down? Kelsi Bermudez APRN.MAYA documented in this encounter [facility] 10-04-2023 Instructions Kelsi Bermudez APRN.CNP - 10/04/2023 12:07 PM EST Have your labs drawn Make sure you're getting a minimum of 60-80oz of water daily documented in this encounter [facility] 10-04-2023 History of Presen t illness Narrative Chief Complaint Patient presents with: Follow Up: Hypertension and tachycardia, woke up with rash/hives on face. HPI Maricruz Tejada is a 18 year old female who presents here today for Above Complaints. Today: Woke up this morning with a rash to both of her cheeks. Did get a new face wash that she started yesterday. Itches and browne. Took her heart monitor off last night. Did tolerate this well. 6 days ago was driving to work, vision was blurry, heart rate began to increase, was shaking. Sat in her car for a little bit. Decided to get out of her car and walk around-legs felt shaky and tingly. At work started to feel some chest pains and vision went black-but didn't actually pass out. Went and sat in her boss's office and took about a half hour to come out of this. 4 days ago had a little episode. [place] a little lightheaded and vision a little blurry. But not terrible. HR at that time was 120. This time it lasted about 10 minutes. First symptom is usually blurry/double vision and feels shaky. Afterward has a bad headache. States has not felt anxious during these episodes. Has felt very panicky and anxious before but this was not the same. Was not eating enough because throat was very sore-she was sick. Was drinking plenty of fluids. Is coughing quite a bit still. Hurts in her middle upper chest with coughing. Brings up thick green mucus with her cough and nasally as well. Has completed her antibiotic. Feels like amoxicillin doesn't work very well for this. While in the office today began feeling shaky and blurry vision, headache. Sat in room, given water to drink, states she just ate before she came to office so was not having low blood sugar. Lay down on exam table for approximately 30 minutes until sister came to get her to bring her home. Past medical history, appointments, medications, allergies reviewed. Previous Medical History PAST MEDICAL HISTORY Diagnosis Date Calculus of kidney PMDD (premenstrual dysphoric disorder) 2018 Previous Surgical History PAST SURGICAL HISTORY Procedure Laterality Date INSERTION OF IUD 10/24/2021 removed 09/14/2023 PAST SURGICAL HISTORY OF removal of renal calculi via lithotrypsy PAST SURGICAL HISTORY OF 06/24/2014 PCP of right thumb UNLISTED PROCEDURE LACRIMAL SYSTEM 02/18/2004 DR WHEELER Family History FAMILY HISTORY Problem Relation Age of Onset Hypertension Mother None Father other (FIBROMYALGIA) Paternal Grandmother Hypertension Maternal Grandfather Lipids Maternal Grandfather Hypertension Maternal Grandmother Patient Allergies ALLERGIES Allergen Reactions Codeine Tramadol Itching, Other: See Comments Dizziness Current Medications Current Outpatient Medications on File Prior to Visit Medication Sig amoxicillin (AMOXIL) 875 mg tablet Take 1 tablet by mouth two times a day for 10 days. rizatriptan 5 mg disintegrating tablet Take 1 tablet (5 mg) by mouth as needed. May repeat in 2 hours if needed lisinopril (ZESTRIL) 10 mg tablet Take 1 tablet by mouth once daily. mecobalamin, vitamin B12, 1,000 mcg chew Take by mouth. cholecalciferol, vitamin D3, 10 mcg (400 unit) cap Take by mouth. Norethindrone Acet-Ethinyl Est (JUNE,) 1-20 mg-mcg per tablet Take 1 tablet by mouth once daily. DULoxetine (CYMBALTA) 20 mg capsule Take 2 capsules by mouth once daily. metoprolol succinate ER (TOPROL XL) 50 mg 24 hr tablet Take 1 tablet by mouth once daily. iv contrast (will be provided with radiology test) MRI Brain Inject, intravenously, once for 1 dose.No IV access, insert saline lock prior to beginning of sedation, infusion, injection of imaging exam.Discontinue saline lock post exam. If Pt. has a central line or IVAD, may access for administration according to line specific nursing protocol.Once exam is complete flush line and de-access according to line specific nursing protocol in the MR contrast administration guidelines link (Patient not taking: Reported on 09/20/2023) levonorgestrel (KYLEENA) 17.5 mcg/24 hrs (5 yrs) 19.5 mg IUD 1 Each by INTRAUTERINE route as directed. (Patient not taking: Reported on 09/18/2023) Current Facility-Administered Medications on File Prior to Visit Medication perflutren lipid microspheres 1.3 mL in NaCl (PF) 0.9% 10 mL injection (DEFINITY) sodium chloride 0.9 % (flush) 10 mL (BD POSIFLUSH) Social History Social History Tobacco Use Smoking status: Never Smokeless tobacco: Never Vaping Use Vaping Use: Never used Substance Use Topics Alcohol use: No Drug use: No Review of Symptoms REVIEW OF SYSTEMS See HPI, otherwise negative EXAM: BP 140/98 (BP Site: Left Arm, BP Position: Sitting, BP Cuff Size: Regular Adult) Pulse 95 Resp 16 Wt 72.9 kg (160 lb 12.8 oz) LMP 08/27/2023 (Within Days) SpO2 98% BMI 28.48 kg/m General Appearance: Well appearing, alert, in no acute distress, well-hydrated, well nourished.. Ears: External ears normal, canals clear. Nose/Sinuses: Nares normal, septum midline, mucosa normal, no drainage or sinus tenderness. Oropharynx: Lips, mucosa, and tongue normal, teeth and gums normal, oropharynx normal. Neck: Supple, no adenopathy; thyroid symmetric, normal size, no bruits. Lungs: Lungs clear to auscultation. No wheezing, rhonchi, rales.. Heart: RRR without murmur, gallop, or rubs. No ectopy. Neurologic: Gait normal. Reflexes normal and symmetric. Sensation grossly intact.. Psychiatric: pleasant, cooperative. Health Maintenance List Covid-19 Vaccine(1) Never done Asthma Action Plan Never done Asthma Control Test Never done Pneumococcal Vaccine(1 - PCV) due on 2009 Meningococcal B Vaccine: Consider Based On Risk(1 of 2 - Patient Seeks Protection) Never done Spirometry Never done Hepatitis C Screening Never done HIV Screening Never done BP Controlled (<130/80) Never done Depression Assessment Never done GC (Gonorrhea) Screening (18-24) due on 09/12/2024 Chlamydia Screening (18-24) due on 09/12/2024 Annual PCP Team Chronic Disease Visit due on 09/20/2024 DTaP,Tdap,Td Vaccine(7 - Td or Tdap) due on 09/22/2025 Hepatitis B Vaccine Completed HPV Vaccine Completed Influenza Vaccine Completed Data reviewed Previous records, office notes ASSESSMENT/PLAN: 1. Irritant contact dermatitis due to cosmetics - ICD9: 692.81, ICD10: L24.3 (primary diagnosis) To stop using her new face wash - TRIAMCINOLONE ACETONIDE 0.025 % TOPICAL CREAM 2. Shaky - ICD9: 781.0, ICD10: R25.1 While in the office today began feeling shaky and blurry vision, headache. Sat in room, given water to drink, states she just ate before she came to office so was not having low blood sugar. Lay down on exam table for approximately 30 minutes until sister came to get her to bring her home. Suspect anxiety significant contributor to her sx. Accucheck blood glucose is 85. Blood work ordered to r/o contributing causes of these symptoms. She is not to drive when she is in one of these episodes. Blood pressure is elevated today as well as at home-will be increasing her lisinopril from 10mg to 20mg daily. Awaiting Zio monitor results. Has cardiology appt in November. Follow up in the office in 3 weeks. - ACCUCHECK B/O - CBC - COMP METABOLIC PANEL - HGB A1C - INSULIN ASSAY BLOOD - IRON + TIBC - FERRITIN BLD - VITAMIN D 25 HYDROXY - VITAMIN B12 BLOOD 3. Lightheaded - ICD9: 780.4, ICD10: R42 While in the office today began feeling shaky and blurry vision, headache. Sat in room, given water to drink, states she just ate before she came to office so was not having low blood sugar. Lay down on exam table for approximately 30 minutes until sister came to get her to bring her home. Suspect anxiety significant contributor to her sx. Accucheck blood glucose is 85. Blood work ordered to r/o contributing causes of these symptoms. She is not to drive when she is in one of these episodes. Blood pressure is elevated today as well as at home-will be increasing her lisinopril from 10mg to 20mg daily. Awaiting Zio monitor results. Has cardiology appt in November. Follow up in the office in 3 weeks. - ACCUCHECK B/O - CBC - COMP METABOLIC PANEL - HGB A1C - INSULIN ASSAY BLOOD - IRON + TIBC - FERRITIN BLD - VITAMIN D 25 HYDROXY - VITAMIN B12 BLOOD 4. Hypertension, essential - ICD9: 401.9, ICD10: I10 While in the office today began feeling shaky and blurry vision, headache. Sat in room, given water to drink, states she just ate before she came to office so was not having low blood sugar. Lay down on exam table for approximately 30 minutes until sister came to get her to bring her home. Suspect anxiety significant contributor to her sx. Accucheck blood glucose is 85. Blood work ordered to r/o contributing causes of these symptoms. She is not to drive when she is in one of these episodes. Blood pressure is elevated today as well as at home-will be increasing her lisinopril from 10mg to 20mg daily. Awaiting Zio monitor results. Has cardiology appt in November. Follow up in the office in 3 weeks. - ACCUCHECK B/O - CBC - COMP METABOLIC PANEL - HGB A1C - INSULIN ASSAY BLOOD - IRON + TIBC - FERRITIN BLD - VITAMIN D 25 HYDROXY - VITAMIN B12 BLOOD 5. Tachycardia - ICD9: 785.0, ICD10: R00.0 While in the office today began feeling shaky and blurry vision, headache. Sat in room, given water to drink, states she just ate before she came to office so was not having low blood sugar. Lay down on exam table for approximately 30 minutes until sister came to get her to bring her home. Suspect anxiety significant contributor to her sx. Accucheck blood glucose is 85. Blood work ordered to r/o contributing causes of these symptoms. She is not to drive when she is in one of these episodes. Blood pressure is elevated today as well as at home-will be increasing her lisinopril from 10mg to 20mg daily. Awaiting Zio monitor results. Has cardiology appt in November. Follow up in the office in 3 weeks. - ACCUCHECK B/O - CBC - COMP METABOLIC PANEL - HGB A1C - INSULIN ASSAY BLOOD - IRON + TIBC - FERRITIN BLD - VITAMIN D 25 HYDROXY - VITAMIN B12 BLOOD 6. Palpitations - ICD9: 785.1, ICD10: R00.2 While in the office today began feeling shaky and blurry vision, headache. Sat in room, given water to drink, states she just ate before she came to office so was not having low blood sugar. Lay down on exam table for approximately 30 minutes until sister came to get her to bring her home. Suspect anxiety significant contributor to her sx. Accucheck blood glucose is 85. Blood work ordered to r/o contributing causes of these symptoms. She is not to drive when she is in one of these episodes. Blood pressure is elevated today as well as at home-will be increasing her lisinopril from 10mg to 20mg daily. Awaiting Zio monitor results. Has cardiology appt in November. Follow up in the office in 3 weeks. - ACCUCHECK B/O - CBC - COMP METABOLIC PANEL - HGB A1C - INSULIN ASSAY BLOOD - IRON + TIBC - FERRITIN BLD - VITAMIN D 25 HYDROXY - VITAMIN B12 BLOOD 7. OCTAVIO (generalized anxiety disorder) - ICD9: 300.02, ICD10: F41.1 While in the office today began feeling shaky and blurry vision, headache. Sat in room, given water to drink, states she just ate before she came to office so was not having low blood sugar. Lay down on exam table for approximately 30 minutes until sister came to get her to bring her home. Suspect anxiety significant contributor to her sx. Accucheck blood glucose is 85. Blood work ordered to r/o contributing causes of these symptoms. She is not to drive when she is in one of these episodes. Blood pressure is elevated today as well as at home-will be increasing her lisinopril from 10mg to 20mg daily. Awaiting Zio monitor results. Has cardiology appt in November. Follow up in the office in 3 weeks. - ACCUCHECK B/O - CBC - COMP METABOLIC PANEL - HGB A1C - INSULIN ASSAY BLOOD - IRON + TIBC - FERRITIN BLD - VITAMIN D 25 HYDROXY - VITAMIN B12 BLOOD 8. Sinobronchitis - ICD9: 473.9, 490, ICD10: J32.9, J40 - Will begin treatment with as per antibiotic as written, see orders - Supportive care with plenty of fluids, rest, and analgesia prn. - Follow up in one week if symptoms persist or worsen. - AZITHROMYCIN 250 MG TABLET Kelsi Bermudez APRN.CNP documented in this encounter [facility] 09-24-2023 Miscellaneous Notes Left message informing pt rx sent to pharmacy. Naomy Rivers MA The following approved medication requests have been transmitted electronically. Requested Prescriptions Signed Prescriptions Disp Refills amoxicillin (AMOXIL) 875 mg tablet 20 tablet 0 Sig: Take 1 tablet by mouth two times a day for 10 days. Authorizing Provider: KELSI BERMUDEZ APRN.CNP Patient made aware of below message and asked that encounter be forwarded to Kelsi to review on Sunday. Pt was seen by [facility] on 09/20/23 for HTN and headaches, no mention of illness. Needs appt to be evaluated or can be re evaluated in Urgent Care. Phoned pt, left message to return call to office. Edgardo Grider Patient calling for antibiotic for sore throat. Was seen in [facility] on 09/18 testede negative for strep. Was seen by Flash Bermudez on 09/20/23. Patient uses pharmacy [place]. Please advise and call patient. documented in this encounter [facility] 09-18-2023 History of Presen t illness Narrative Subjective HPI Patient presents to urgent care with chief complaint of upper respiratory tract like infection. Duration of symptoms 2 days. Associated symptoms sore throat, nasal congestion, nasal discharge and ear pain. Patient denies the use of any [id number] medications or home remedies for symptom management. Patient states recent sick contacts with similar signs and symptoms. Patient denies any productive cough, fever, chest pain, shortness of breath, pleuritic pain, rash, abdominal pain, nausea, vomiting or change in bowel or bladder habit. Denies chance of . Is not breast-feeding. Past medical history prescription medication use allergies reviewed. .Patient presents with: Ear Pain: Right ear pain that started last night and ST and congestion x 2 days PAST MEDICAL HISTORY Diagnosis Date Calculus of kidney PMDD (premenstrual dysphoric disorder) 2019 PAST SURGICAL HISTORY Procedure Laterality Date INSERTION OF IUD 10/24/2021 removed 09/14/2023 PAST SURGICAL HISTORY OF removal of renal calculi via lithotrypsy PAST SURGICAL HISTORY OF 06/24/2014 PCP of right thumb UNLISTED PROCEDURE LACRIMAL SYSTEM 02/18/2004 DR WHEELER ALLERGIES Codeine and Tramadol MEDICATIONS mecobalamin, vitamin B12, 1,000 mcg chew^Take by mouth.^Disp: ^Rfl: cholecalciferol, vitamin D3, 10 mcg (400 unit) cap^Take by mouth.^Disp: ^Rfl: Norethindrone Acet-Ethinyl Est (JUNEL 12/08, ,) 1-20 mg-mcg per tablet^Take 1 tablet by mouth once daily.^Disp: 63 tablet^Rfl: 3 DULoxetine (CYMBALTA) 20 mg capsule^Take 2 capsules by mouth once daily.^Disp: 90 capsule^Rfl: 1 metoprolol succinate ER (TOPROL XL) 50 mg 24 hr tablet^Take 1 tablet by mouth once daily.^Disp: 90 tablet^Rfl: 1 iv contrast (will be provided with radiology test)^MRI Brain Inject, intravenously, once for 1 dose.No IV access, insert saline lock prior to beginning of sedation, infusion, injection of imaging exam.Discontinue saline lock post exam. If Pt. has a central line or IVAD, may access for administration according to line specific nursing protocol.Once exam is complete flush line and de-access according to line specific nursing protocol in the MR contrast administration guidelines link^Disp: 1 Each^Rfl: 0 levonorgestrel (KYLEENA) 17.5 mcg/24 hrs (5 yrs) 19.5 mg IUD^1 Each by INTRAUTERINE route as directed.^Disp: 1 Each^Rfl: 0 (Patient not taking: Reported on 09/18/2023) FAMILY HISTORY Problem Relation Age of Onset Hypertension Mother None Father other (FIBROMYALGIA) Paternal Grandmother Hypertension Maternal Grandfather Lipids Maternal Grandfather Hypertension Maternal Grandmother Social History Tobacco Use Smoking status: Never Smokeless tobacco: Never Vaping Use Vaping Use: Never used Substance Use Topics Alcohol use: No Drug use: No BP 148/88 Pulse 104 Temp 36.7 C (98 F) (Tympanic) Resp 16 Wt 75 kg (165 lb 6.4 oz) LMP 08/27/2023 (Within Days) SpO2 98% BMI 29.30 kg/m Hr 86 Review of Systems Constitutional: Negative for chills, fever and malaise/fatigue. HENT: Positive for congestion, ear pain and sore throat. Negative for ear discharge and sinus pain. Eyes: Negative for blurred vision, pain, discharge and redness. Respiratory: Negative for cough, hemoptysis, sputum production, shortness of breath, wheezing and stridor. Cardiovascular: Negative for chest pain. Gastrointestinal: Negative for abdominal pain, diarrhea, nausea and vomiting. Musculoskeletal: Negative for myalgias. Skin: Negative for itching and rash. Neurological: Negative for dizziness and headaches. Objective Physical Exam Constitutional: General: She is not in acute distress. Appearance: She is not diaphoretic. HENT: Head: Normocephalic. Jaw: No trismus, tenderness, swelling or pain on movement. Right Ear: Tympanic membrane, ear canal and external ear normal. Left Ear: Tympanic membrane, ear canal and external ear normal. Ears: Comments: Clear fluid behind bilateral TMs noted. TMs pearly vines and intact. Nose: Congestion present. Mouth/Throat: Mouth: Mucous membranes are moist. Pharynx: Oropharynx is clear. Uvula midline. No pharyngeal swelling, oropharyngeal exudate, posterior oropharyngeal erythema or uvula swelling. Eyes: Conjunctiva/sclera: Conjunctivae normal. Pupils: Pupils are equal, round, and reactive to light. Cardiovascular: Rate and Rhythm: Normal rate and regular rhythm. Heart sounds: Normal heart sounds. Pulmonary: Effort: Pulmonary effort is normal. No tachypnea, accessory muscle usage or respiratory distress. Breath sounds: Normal breath sounds. No stridor. No wheezing, rhonchi or rales. Abdominal: General: There is no distension. Palpations: Abdomen is soft. Tenderness: There is no abdominal tenderness. There is no guarding or rebound. Musculoskeletal: Cervical back: Normal range of motion and neck supple. No edema, erythema, rigidity or tenderness. No pain with movement. Normal range of motion. Lymphadenopathy: Cervical: No cervical adenopathy. Skin: General: Skin is warm and dry. Neurological: Mental Status: She is alert and oriented to person, place, and time. ASSESSMENT/PLAN: 1. Sore throat - ICD9: 462, ICD10: J02.9 (primary diagnosis) - STREP A MOLECULAR (POC) 2. Eustachian tube dysfunction, bilateral - ICD9: 381.81, ICD10: H69.93 Strep test negative. Diagnosed with viral illness and eustachian tube dysfunction. No evidence of bacterial infection noted on today's exam. Treat conservatively at this time. Patient was educated on supportive therapies. Patient will follow up with primary care provider as needed. Patient was instructed to immediately proceed to emergency room for any new, worsening, or symptoms lasting longer than anticipated. The patient's clinical presentation is otherwise unremarkable at this time. Based on exam and clinical finding, the patient is stable for discharge. Plan of care was discussed with patient. Patient verbalizes understanding and agrees to plan of care. This note was generated using [employer] software. It may contain errors in wording, punctuation, or spelling. Vin Canada APRN.MAYA documented in this encounter [facility] 09-14-2023 History of Presen t illness Narrative Eeg Tech offered: Patient declines. Maricruz Tejada is a 18 year old female who presents for problem visit [facility] follow-up for 3 week history of UTI symptoms and pelvic pain and negative test results. HPI: 3 week history of dysuria, urinary frequency and mild back and left flank pain. Intermittent pelvic cramping alternating sides for up to 4 days at a time for over one year. The current episode has been present for 3 weeks and has not improved unless she takes Aleve. It feels similar to past ovarian cysts. Denies vaginal symptoms. Has history of kidney stones with last one at 12/13 years old. Denies constipation. Last sexually active 6 months ago. Kyleena IUD in place, has started Junel OCP and has IUD removal authorized through her insurance. [facility]uated [facility] 09[facility]12/[facility] - vaginal cultures, GCCT, UAC and urine culture negative. Appointment with Dr Freire on Sunday and general farm manager in November for evaluation of elevated BP. OB History T0 L0 SAB0 IAB0 Ectopic0 Multiple0 Live Births0 Sales Contractor History LMP: 08/27/2023 (Within Days), IUD Age at Menarche: Age at First : Age at Menopause: Sales Contractor History Comments: Sexual Activity: Yes; Male Contraception: I.U.D. PAST MEDICAL HISTORY Diagnosis Date Calculus of kidney PMDD (premenstrual dysphoric disorder) 2018 PAST SURGICAL HISTORY Procedure Laterality Date INSERTION OF IUD 10/24/2021 PAST SURGICAL HISTORY OF removal of renal calculi via lithotrypsy PAST SURGICAL HISTORY OF 06/24/2014 PCP of right thumb UNLISTED PROCEDURE LACRIMAL SYSTEM 02/18/2004 DR WHEELER FAMILY HISTORY Problem Relation Age of Onset Hypertension Mother None Father other (FIBROMYALGIA) Paternal Grandmother Hypertension Maternal Grandfather Lipids Maternal Grandfather Hypertension Maternal Grandmother Social History Tobacco Use Smoking status: Never Smokeless tobacco: Never Vaping Use Vaping Use: Never used Substance Use Topics Alcohol use: No Drug use: No Current Outpatient Medications Medication Sig mecobalamin, vitamin B12, 1,000 mcg chew Take by mouth. cholecalciferol, vitamin D3, 10 mcg (400 unit) cap Take by mouth. Norethindrone Acet-Ethinyl Est (JUNEL 12/08, ,) 1-20 mg-mcg per tablet Take 1 tablet by mouth once daily. DULoxetine (CYMBALTA) 20 mg capsule Take 2 capsules by mouth once daily. metoprolol succinate ER (TOPROL XL) 50 mg 24 hr tablet Take 1 tablet by mouth once daily. iv contrast (will be provided with radiology test) MRI Brain Inject, intravenously, once for 1 dose.No IV access, insert saline lock prior to beginning of sedation, infusion, injection of imaging exam.Discontinue saline lock post exam. If Pt. has a central line or IVAD, may access for administration according to line specific nursing protocol.Once exam is complete flush line and de-access according to line specific nursing protocol in the MR contrast administration guidelines link levonorgestrel (KYLEENA) 17.5 mcg/24 hrs (5 yrs) 19.5 mg IUD 1 Each by INTRAUTERINE route as directed. Current Facility-Administered Medications Medication Dose Route Frequency perflutren lipid microspheres 1.3 mL in NaCl (PF) 0.9% 10 mL injection (DEFINITY) INTRAVENOUS DIRECTED PRN sodium chloride 0.9 % (flush) 10 mL (BD POSIFLUSH) 10 mL INTRAVENOUS DIRECTED PRN Allergies As of Date: 09/14/2023 Allergen Noted Reaction CODEINE 07/03/2007 TRAMADOL 06/30/2014 Itching and Other: See Comments Fully Assessed 09/14/2023 REVIEW OF SYSTEMS Abdomen: see HPI Bladder: see HPI. Allergies and current medication updated:Yes EXAM: BP 146/98 Wt 162 lb (73.5kg) LMP 08/27/2023 GENERAL: pleasant, female in no apparent distress CHEST: Normal inspiratory effort ABDOMEN: soft, no masses, and Mild tenderness in LLQ PELVIC: external genitalia normal, normal Bartholin's glands, urethra, [place]'s glands, no vulvar lesions, no cervical lesions, good vaginal support, physiologic discharge present, normal appearing perineal body and perianal region BIMANUAL: uterus normal size, shape and consistency, no adnexal masses, and Mild tenderness NEURO: alert and oriented x3,exam grossly non-focal ASSESSMENT/PLAN: 1. Urine frequency - ICD9: 788.41, ICD10: R35.0 (primary diagnosis) - [facility] 09/12/2023 - vaginal cultures, GCCT, UAC and urine culture negative. - UROGENITAL UREAPLASMA AND MYCOPLASMA SPECIES BY PCR, FOR GENITAL 2. Dysuria - ICD9: 788.1, ICD10: R30.0 See above - UROGENITAL UREAPLASMA AND MYCOPLASMA SPECIES BY PCR, FOR GENITAL 3. Left flank pain - ICD9: 789.09, ICD10: R10.9 - history of kidney stones but denies similar symptoms. Feels like previous ovarian cysts. - US FEMALE PELVIS TRANSVAG 4. Encounter for IUD removal - ICD9: V25.12, ICD10: Z30.432 - authorized and will remove today. 5. Pelvic pain in female - ICD9: 625.9, ICD10: R10.2 - see #3 - US FEMALE PELVIS TRANSVAG Will notify of results. Follow- up as needed. Daisy Zarate APRN.SENIOR ACCOUNT CLERK Medical Decision Making: Problems: Moderate: New problem with uncertain prognosis Data: Unique source(s) for external note(s) reviewed: 1 Unique test result(s) reviewed: 3+ Unique test(s) ordered: 2 Medical Decision Making Level: 4 - Moderate Maricruz presents for removal of IUD due to pelvic pain and possible ovarian cysts. UNIVERSAL PROTOCOL / SAFETY CHECKLIST Procedure to be Performed: IUD removal Sign In: A Moment of CARE was completed. Personnel directly involved with the procedure wore the appropriate PPE (Personal Protective Equipment). Patient/Surrogate Stated/Verified: PATIENT VERIFIED(optional for EMERGENT procedures): Patient name, Date of , Relevant allergies, and The intended procedure Time Out Communication: Intended patient and procedure match the source documents. Consent documented and matches the intended procedure. No relevant labs, photos, and/or imaging studies were applicable for review. Sign Out: SIGN OUT (optional for EMERGENT procedures): No specimen collected. Post-procedure follow-up management communicated and Plan of Care Visit completed when applicable. Daisy Zarate APRN.CNP PROCEDURE: Speculum placed in vagina, IUD string not visualized. Cervix cleansed with betadine, tenaculum to cervix and strings grasped using curved forceps. ASSESSMENT/PLAN: IUD removed without difficulty, intact, and patient tolerated procedure well. Contraception plans: oral contraceptives Follow-up as needed. Daisy Zarate APRN.MAYA documented in this encounter [facility] 09-13-2023 Miscellaneous Notes Noted. Will assess tomorrow. Little Cheng APRN.CNP Please see pt message. Scheduled appt with AD tomorrow 09/14 for elevated BP. Naomy Rivers documented in this encounter [facility] 09-13-2023 Miscellaneous Notes Patient verified by name and . Message was relayed and patient verbalized understanding. Scheduling an SPRING UP SUPERVISOR follow up. Left message for patient to return call. Brigitte Ibarra LPN Gonorrhea chlamydia test negative. Follow-up with SPRING UP SUPERVISOR if symptoms are not improving. Vin Canada APRN.CNP documented in this encounter [facility] 09-12-2023 History of Presen t illness Narrative This note was created using Drawn to Scale. Subjective Maricruz Tejada is a 18 year old female. HPI Patient presents with a chief complaint of flank pain and dysuria over the past 3 weeks. States she had mild pain in her back and left flank off and on. She states she has had dysuria and urinary frequency. She denies any vaginal itching or discharge. Has not been sexually active for 6 months. Denies any chance of . She does have an IUD. She was having pelvic pain from the IUD but did not have that out yet. She has been seeing SPRING UP SUPERVISOR for this. No fever. No vomiting. Blood pressure is noted to be elevated today. She states she is following with cardiology for this and also plans to follow-up with PCP. Asymptomatic. LMP 4 weeks ago. History of kidney stones previously. Review of Systems Constitutional: Negative. HENT: Negative. Respiratory: Negative. Cardiovascular: Negative. Genitourinary: Positive for flank pain, frequency and urgency. Negative for hematuria, vaginal bleeding, vaginal discharge and vaginal pain. All other systems reviewed and are negative. PAST MEDICAL HISTORY Diagnosis Date Calculus of kidney PMDD (premenstrual dysphoric disorder) 2018 Current Outpatient Medications Medication Sig Dispense Refill mecobalamin, vitamin B12, 1,000 mcg chew Take by mouth. cholecalciferol, vitamin D3, 10 mcg (400 unit) cap Take by mouth. Norethindrone Acet-Ethinyl Est (JUNEL ,) 1-20 mg-mcg per tablet Take 1 tablet by mouth once daily. 63 tablet 3 DULoxetine (CYMBALTA) 20 mg capsule Take 2 capsules by mouth once daily. 90 capsule 1 metoprolol succinate ER (TOPROL XL) 50 mg 24 hr tablet Take 1 tablet by mouth once daily. 90 tablet 1 levonorgestrel (KYLEENA) 17.5 mcg/24 hrs (5 yrs) 19.5 mg IUD 1 Each by INTRAUTERINE route as directed. 1 Each 0 iv contrast (will be provided with radiology test) MRI Brain Inject, intravenously, once for 1 dose.No IV access, insert saline lock prior to beginning of sedation, infusion, injection of imaging exam.Discontinue saline lock post exam. If Pt. has a central line or IVAD, may access for administration according to line specific nursing protocol.Once exam is complete flush line and de-access according to line specific nursing protocol in the MR contrast administration guidelines link 1 Each 0 Current Facility-Administered Medications Medication Dose Route Frequency Provider Last Rate Last Admin perflutren lipid microspheres 1.3 mL in NaCl (PF) 0.9% 10 mL injection (DEFINITY) INTRAVENOUS DIRECTED PRN Older, Kathy, FARM MANAGER.SENIOR ACCOUNT CLERK sodium chloride 0.9 % (flush) 10 mL (BD POSIFLUSH) 10 mL INTRAVENOUS DIRECTED PRN Older, Kathy, FARM MANAGER.SENIOR ACCOUNT CLERK PAST SURGICAL HISTORY Procedure Laterality Date INSERTION OF IUD 10/24/2021 PAST SURGICAL HISTORY OF removal of renal calculi via lithotrypsy PAST SURGICAL HISTORY OF 06/24/2014 PCP of right thumb UNLISTED PROCEDURE LACRIMAL SYSTEM 02/18/2004 DR WHEELER FAMILY HISTORY Problem Relation Age of Onset Hypertension Mother None Father other (FIBROMYALGIA) Paternal Grandmother Hypertension Maternal Grandfather Lipids Maternal Grandfather Hypertension Maternal Grandmother Social History Tobacco Use Smoking status: Never Smokeless tobacco: Never Vaping Use Vaping Use: Never used Substance Use Topics Alcohol use: No Drug use: No Objective BP 164/105 Pulse 100 Temp 36.2 C (97.2 F) Resp 18 Wt 74.7 kg (164 lb 9.6 oz) LMP 08/27/2023 (Within Days) SpO2 100% BMI 29.16 kg/m Physical Exam Vitals reviewed. Constitutional: Appearance: Normal appearance. HENT: Head: Normocephalic and atraumatic. Cardiovascular: Rate and Rhythm: Normal rate and regular rhythm. Heart sounds: Normal heart sounds. Pulmonary: Effort: Pulmonary effort is normal. Breath sounds: Normal breath sounds. Abdominal: General: Abdomen is flat. Palpations: Abdomen is soft. Tenderness: There is no right CVA tenderness or left CVA tenderness. Comments: Mild left flank pain on palpation. No guarding or rebound. Patient in no distress. Skin: General: Skin is warm and dry. Neurological: Mental Status: She is alert. Assessment and Plan ASSESSMENT/PLAN: 1. Urinary frequency - ICD9: 788.41, ICD10: R35.0 (primary diagnosis) Urine dip is completely negative. I did help her do some self swabs to rule out vaginal infection. Will call on results. Patient does have a history of kidney stones. She not having any blood in her urine. Did recommend follow-up with PCP or urology for the flank pain and frequency. Patient agreeable. - UA DIP, URINE (POC) - URINE CULTURE - GONORRHEA/CHLAMYDIA NAAT 2. Dysuria - ICD9: 788.1, ICD10: R30.0 - GONORRHEA/CHLAMYDIA NAAT - ADÁN/TRICHOMONAS NAAT - BACTERIAL VAGINOSIS NAAT Nohemi Islas PA-C documented in this encounter [facility] 08-09-2023 Miscellaneous Notes Provider: Dr. Knapp patient requesting refill via [email or web address] . Please E-Scribe Last OV: 09-28-[address] Knapp Future OV: N/A Last prescribed: 09-28-22 Requested Prescriptions Pending Prescriptions Disp Refills rizatriptan 5 mg disintegrating tablet 9 tablet 2 Sig: Take 1 tablet (5 mg) by mouth as needed. May repeat in 2 hours if needed Request sent to provider to review documented in this encounter [facility] 07-31-2023 History of Presen t illness Narrative Maricruz Tejada is a 18 year old female who presents for problem visit pelvic pain. HPI: Patient is still having ongoing pelvic pain/cramping. She would like to proceed with having the IUD removed and going back on a control pill. OB History T0 L0 SAB0 IAB0 Ectopic0 Multiple0 Live Births0 Sales Contractor History LMP: 07/17/2023 (Exact Date), IUD Age at Menarche: Age at First : Age at Menopause: Sales Contractor History Comments: Sexual Activity: Yes; Male Contraception: I.U.D. PAST MEDICAL HISTORY Diagnosis Date Calculus of kidney PMDD (premenstrual dysphoric disorder) 2019 PAST SURGICAL HISTORY Procedure Laterality Date INSERTION OF IUD 10/24/2021 PAST SURGICAL HISTORY OF removal of renal calculi via lithotrypsy PAST SURGICAL HISTORY OF 06/24/2014 PCP of right thumb UNLISTED PROCEDURE LACRIMAL SYSTEM 02/18/2004 DR WHEELER FAMILY HISTORY Problem Relation Age of Onset Hypertension Mother None Father other (FIBROMYALGIA) Paternal Grandmother Hypertension Maternal Grandfather Lipids Maternal Grandfather Hypertension Maternal Grandmother Social History Tobacco Use Smoking status: Never Smokeless tobacco: Never Vaping Use Vaping Use: Never used Substance Use Topics Alcohol use: No Drug use: No Current Outpatient Medications Medication Sig DULoxetine (CYMBALTA) 20 mg capsule Take 2 capsules by mouth once daily. metoprolol succinate ER (TOPROL XL) 50 mg 24 hr tablet Take 1 tablet by mouth once daily. iv contrast (will be provided with radiology test) MRI Brain Inject, intravenously, once for 1 dose.No IV access, insert saline lock prior to beginning of sedation, infusion, injection of imaging exam.Discontinue saline lock post exam. If Pt. has a central line or IVAD, may access for administration according to line specific nursing protocol.Once exam is complete flush line and de-access according to line specific nursing protocol in the MR contrast administration guidelines link levonorgestrel (KYLEENA) 17.5 mcg/24 hrs (5 yrs) 19.5 mg IUD 1 Each by INTRAUTERINE route as directed. Norethindrone Acet-Ethinyl Est (JUNE12/08, ,) 1-20 mg-mcg per tablet Take 1 tablet by mouth once daily. Current Facility-Administered Medications Medication Dose Route Frequency perflutren lipid microspheres 1.3 mL in NaCl (PF) 0.9% 10 mL injection (DEFINITY) INTRAVENOUS DIRECTED PRN sodium chloride 0.9 % (flush) 10 mL (BD POSIFLUSH) 10 mL INTRAVENOUS DIRECTED PRN Allergies As of Date: 07/31/2023 Allergen Noted Reaction CODEINE 07/03/2007 TRAMADOL 06/30/2014 Itching and Other: See Comments Fully Assessed 07/31/2023 REVIEW OF SYSTEMS . Expanded ROS: N/A Allergies and current medication updated:Yes EXAM: BP 122/78 Wt 163 lb 6.4 oz (74.1kg) LMP 07/17/2023 GENERAL: pleasant, female in no apparent distress HEENT: Normocephalic, atraumatic, mucus membranes moist, and no lesions CHEST: Normal inspiratory effort NEURO: alert and oriented x3,exam grossly non-focal EXTREMITIES: normal ASSESSMENT/PLAN: 1. Pelvic pain in female - ICD9: 625.9, ICD10: R10.2 (primary diagnosis) - REMOVE INTRAUTERINE DEVICE 2. Encounter for initial prescription of contraceptive pills - ICD9: V25.01, ICD10: Z30.011 - RX for Junel given today. - discussed with patient on how to take OCP's. - counseled on benefits, risks and possible severe side effects of OCP's. - discussed need to use Condoms to help to prevent STD's including HIV etc. Emely Handy APRN.CNP Medical Decision Making: Problems: Low: Acute, uncomplicated illness or injury Risk: Low: Low risk from testing/treatment Moderate: Drug management Medical Decision Making Level: 3 - Low documented in this encounter [facility] 07-26-2023 Miscellaneous Notes Consult order placed. Please assist in scheduling. Thank you, Little Cheng APRN.MAYA Patient returned call and given provider's message below. Pt states she is still having sx's and would like PCP to place Cardiology referral. Please call pt once order has been placed to assist with scheduling. Thank you. Called and left a voicemail for the Patient to call back and ask for a nurse to receive the providers message. Vivian Abernathy RN Please inform patient that her TILT table results were negative for syncope but were borderline for postural tachycardia. Next steps would be see Planting Material Unloader for opinion if still having symptoms Celso Freire DO Results printed from scanning and placed in your inbasket for review. Please obtain results for me to review Celso Freire DO Patient asking pcp to review and advise on Tilt Table test, she had done last week at [facility]. documented in this encounter [facility] 07-24-2023 Miscellaneous Notes Patient has been identified by name and date of : Yes, Angelica Soriano RN Date 07/24/2023 Time 3:15 pm Patient phones for refill(s): Requested Prescriptions Pending Prescriptions Disp Refills DULoxetine (CYMBALTA) 20 mg capsule 90 capsule 1 Sig: Take 2 capsules by mouth once daily. Previous Prescription was not sent: It was a [employer] RX. Date of last office visit with pcp: 04/25/2023 Future appt: none Last 2 Encounter Wt Readings: Date: Wt: 05/28/2023 75.3 kg (166 lb) (90 %, Z= 1.28)* 04/27/2023 72.6 kg (160 lb) (87 %, Z= 1.13)* Previous labs/tests for medication: Blood Pressure: BUN (mg/dL) Date Value 04/25/2023 8 11/21/2016 16 Sodium Date Value 04/25/2023 139 mmol/L 11/21/2016 138 mEq/L Last 1 Encounter BP Readings: Date: BP: 05/28/2023 142/92 Liver Function: ALT (U/L) Date Value 04/25/2023 19 11/21/2016 46 AST (U/L) Date Value 04/25/2023 20 11/21/2016 77 Please advise. Thank you. Angelica Soriano RN documented in this encounter [facility] 07-16-2023 Miscellaneous Notes Patient has been identified by name and date of : Yes Patient phones for refill(s): Requested Prescriptions Pending Prescriptions Disp Refills DULoxetine (CYMBALTA) 20 mg capsule 90 capsule 1 Sig: Take 2 capsules by mouth once daily. Date of last office visit in primary care: MATTHEW 04/25/23 NOV not scheduled Last 2 Encounter Wt Readings: Date: Wt: 05/28/2023 75.3 kg (166 lb) (90 %, Z= 1.28)* 04/27/2023 72.6 kg (160 lb) (87 %, Z= 1.13)* Please advise. Thank you. CHRISTIE Leonardo documented in this encounter [facility] 06-15-2023 Miscellaneous Notes Left detailed message that company is saying they have not received monitor. She may need to contact the company. Left message for pt to return call. See below, please inform patient that the company is saying that it wasn't received etc Celso Freire DO Pt reports she mailed it back over a month ago. Pt reports it fell off after 12 days so she put it in the orange return box and sent it back. Lizbeth Lovell LPN [employer] called they state that monitor was never mailed back to company. Message left for Pt. to call back. Please obtain results from classroom monitor testing Celso Ferire DO okay, thank you. We re you able to get ahold of the heart monitor company to see if they got it? Is our next step waiting on the results of the tilt table test ? documented in this encounter [facility] 05-28-2023 History of Presen t illness Narrative Radiology Service Progress Note PATIENT NAME: Maricruz Tejada DATE OF SERVICE: May 28, 2023 TIME: 4:05 PM PATIENT IDENTITY VERIFICATION COMPLETED USING TWO (2) IDENTIFIERS: Name and Date of confirmed by patient verbally. FALL SCREENING: Has the patient had 2 falls in the last year or 1 fall with injury or currently using an Ambulatory Assistive Device (Walker, Cane, Wheelchair, Crutches, etc.)? No PATIENT GENDER DATA: Female. status: : No status: NO. PATIENT RELEVANT IMPLANT DATA REVIEWED: Not Applicable RADIOLOGY DEPARTMENT: General X-ray: Exam(s) Completed: Upper Extremity X-Ray(s): Fingers/Thumb, left PERIPHERAL IV DATA: Not applicable SIGNED BY: RT Timothy(R) May 28, 2023 4:05 PM documented in this encounter [facility] 05-04-2023 History of Presen t illness Narrative Radiology Service Progress Note PATIENT NAME: Maricruz Tejada DATE OF SERVICE: May 04, 2023 TIME: 2:55 PM PATIENT IDENTITY VERIFICATION COMPLETED USING TWO (2) IDENTIFIERS: Name and Date of confirmed by patient verbally. FALL SCREENING: Has the patient had 2 falls in the last year or 1 fall with injury or currently using an Ambulatory Assistive Device (Walker, Cane, Wheelchair, Crutches, etc.)? No PATIENT GENDER DATA: Female. status: : No status: NO. PATIENT RELEVANT IMPLANT DATA REVIEWED: Not Applicable RADIOLOGY DEPARTMENT: Ultrasound PERIPHERAL IV DATA: Not applicable SIGNED BY: Raya Perry RDMS RVT May 04, 2023 2:55 PM documented in this encounter [facility] 04-25-2023 History of Presen t illness Narrative CC: Maricruz Tejada is a 17 year old female who presents to the office for tachycardia HPI: A few weeks ago (around early March) she states that she was sitting and resting at work, noticed that her heart rate was racing, not doing anything activity ojeda. Sometimes wakes up in the morning and heart is racing. Blood pressure has also been elevated. She was seen in the EMERGENCY DEPARTMENT on 03/21/23 at [facility] and had few labs and ECG which were overall normal. She is taking metoprolol 25 mg XL once a day. She was seen outpatient on 03/28 and had ECHO ordered and performed which was normal as well as just completed wearing a classroom monitor. Hasn't had the results from this yet. Recently still her blood pressure is high with a BLOOD PRESSURE average today was 140/96. At home 150s/115 sometimes. No syncope symptoms, hasn't had tilt table testing or seen Planting Material Unloader or other labs PAST MEDICAL HISTORY Diagnosis Date Calculus of kidney PMDD (premenstrual dysphoric disorder) 2018 PAST SURGICAL HISTORY Procedure Laterality Date PAST SURGICAL HISTORY OF removal of renal calculi via lithotrypsy PAST SURGICAL HISTORY OF 06/24/2014 PCP of right thumb UNLISTED PROCEDURE LACRIMAL SYSTEM 02/20 DR WHEELER Current Outpatient Medications Medication Sig DULoxetine (CYMBALTA) 20 mg capsule Take 2 capsules by mouth once daily. Norethindrone, Contraceptive, (ORTHO MICRONOR) 0.35 mg tablet Take 1 tablet by mouth once daily. rizatriptan (MAXALT ANIMAL GROOMER) 5 mg disintegrating tablet Take 1 tablet by mouth as needed. May repeat in 2 hours if needed metoprolol succinate ER (TOPROL XL) 50 mg 24 hr tablet Take 1 tablet by mouth once daily. iv contrast (will be provided with radiology test) MRI Brain Inject, intravenously, once for 1 dose.No IV access, insert saline lock prior to beginning of sedation, infusion, injection of imaging exam.Discontinue saline lock post exam. If Pt. has a central line or IVAD, may access for administration according to line specific nursing protocol.Once exam is complete flush line and de-access according to line specific nursing protocol in the MR contrast administration guidelines link levonorgestrel (KYLEENA) 17.5 mcg/24 hrs (5 yrs) 19.5 mg IUD 1 Each by INTRAUTERINE route as directed. Current Facility-Administered Medications Medication Dose Route Frequency perflutren lipid microspheres 1.3 mL in NaCl (PF) 0.9% 10 mL injection (DEFINITY) INTRAVENOUS DIRECTED PRN sodium chloride 0.9 % (flush) 10 mL (BD POSIFLUSH) 10 mL INTRAVENOUS DIRECTED PRN ALLERGIES Allergen Reactions Codeine Tramadol Itching, Other: See Comments Dizziness Social History Tobacco Use Smoking status: Never Smokeless tobacco: Never Vaping Use Vaping Use: Never used Substance Use Topics Alcohol use: No Drug use: No ROS: See HPI. PE: BP 140/96[Bp Booker[ Pulse 116[BP booker[ Temp (Src) 97.7 (Left Tympanic) Resp 12 Wt 160 lb (72.6kg) LMP 04/15/2023 Gen: A&OX3, NAD, non-toxic appearing HEENT: PERRLA, EOMs intact b/l, nares without drainage, pharynx without erythema, exudate, lesions, or drainage. Uvula midline. Neck: No LAD, no thyromegaly, no meningismus. CV: RRR, no murmur Lungs: CTA b/l, no wheezing Skin: No rashes, lesions, or wounds on exposed skin. No edema, normal pulses ASSESSMENT/PLAN: 1. Tachycardia - ICD9: 785.0, ICD10: R00.0 (primary diagnosis) Multiple episodes of tachycardia as well as elevated BLOOD PRESSURE, need for additional labs and urinalysis, also need for Tilt table testing and obtaining results from her cardiac 2 week monitor that she wore. Increase dose of metoprolol to 50 mg a day as well as cutting out caffeine from her diet and increased water intake to at least 80 oz a day. - consider next step of checking renal artery US and carotid artery US, MRI brain is normal - COMP METABOLIC PANEL - CBC + DIFF - IRON + TIBC - TSH BLD - T4 FREE/FREE THYROX - T3 FREE BLD - VITAMIN D 25 HYDROXY - VITAMIN B12 BLOOD - URINALYSIS, WITH MICROSCOPIC - TILT TABLE EVALUATION - CORTISOL BLD - ALDOSTERONE/DIRECT RENIN RATIO - METOPROLOL SUCCINATE ER 50 MG TABLET,EXTENDED RELEASE 24 HR 2. Hypertension, essential - ICD9: 401.9, ICD10: I10 Multiple episodes of tachycardia as well as elevated BLOOD PRESSURE, need for additional labs and urinalysis, also need for Tilt table testing and obtaining results from her cardiac 2 week monitor that she wore. Increase dose of metoprolol to 50 mg a day as well as cutting out caffeine from her diet and increased water intake to at least 80 oz a day. - COMP METABOLIC PANEL - CBC + DIFF - IRON + TIBC - TSH BLD - T4 FREE/FREE THYROX - T3 FREE BLD - VITAMIN D 25 HYDROXY - VITAMIN B12 BLOOD - URINALYSIS, WITH MICROSCOPIC - TILT TABLE EVALUATION - CORTISOL BLD - ALDOSTERONE/DIRECT RENIN RATIO - METOPROLOL SUCCINATE ER 50 MG TABLET,EXTENDED RELEASE 24 HR Celso Freire DO Return if no improvement. Follow up with Celso Freire DO. To ER if develops chest pain, shortness of breath Discussed risks, benefits, alternatives, and potential side effects of medications. Patient/Guardian expressed understanding and agreed with the plan. See patient instructions. Celso Freire DO [address] [place] [address] documented in this encounter [facility] 04-24-2023 History of Presen t illness Narrative History: Maricruz Tejada, a 17 year old female, presents for f/up mild L SNHL at 250-1 k, 3 K. SRT 15. WRS 100. No change. Noted L hearing loss '. MRI brain w 04/23/23: neg for CPA path. Occ L ear ringing. Denies dizziness, ear pressure, pain, itching, drainage, nasal congestion, runny-nose, post-nasal drip. No history of noise exposure. No history of ear infections. No history of ear surgery. No history of ear trauma. No history of allergies. Audiogram 03/26/23: mild L SNHL at 250-1 k, 3 K. SRT 15. WRS 100. PE: Alert; oriented; well-developed; no apparent distress. Normal voice; normal communication. Ears: R: EAC free of lesions. TM clear and mobile. L: EAC free of lesions. TM clear and mobile. Impression: L SNHL. MRI neg for CPA path. Rec repeat audio 1 y. Medical Decision Making: Problems: Low: Acute, uncomplicated illness or injury Risk: Low: Low risk from testing/treatment Medical Decision Making Level: 3 - Low documented in this encounter [facility] 04-23-2023 History of Presen t illness Narrative Radiology Service Progress Note DATE OF SERVICE: April 23, 2023 TIME: 12:56 PM PATIENT IDENTITY VERIFICATION COMPLETED USING TWO (2) STANDARD IDENTIFIERS: Name and Date of confirmed by patient verbally. FALL SCREENING: Has the patient had 2 falls in the last year or 1 fall with injury or currently using an Ambulatory Assistive Device (Walker, Cane, Wheelchair, Crutches, etc.)? No PATIENT GENDER DATA: Female. status: : No status: NO. ALLERGIES: Reviewed and unchanged CONTRAST ALLERGY: No EXAM: MRI - CONTRAST TYPE: GROUP II IV SITE: Ambulatory: A peripheral IV was started in the Left wrist with a Angio cath: 24 gauge. and A Saline lock was inserted per protocol started by NHAN Irvin, on her second try, after 2 tries by NHAN Gallegos, and 2 by this RN all unsuccessful. IV SITE APPEARANCE: Clean,Dry and Intact SIGNATURE: Luis Enrique Persaud PATIENT NAME: Maricruz Tejada DATE: April 23, 2023 TIME: 12:56 PM Radiology Service Progress Note PATIENT NAME: Maricruz Tejada DATE OF SERVICE: April 23, 2023 TIME: 1:41 PM PATIENT IDENTITY VERIFICATION COMPLETED USING TWO (2) IDENTIFIERS: Name and Date of confirmed by patient verbally. FALL SCREENING: Has the patient had 2 falls in the last year or 1 fall with injury or currently using an Ambulatory Assistive Device (Walker, Cane, Wheelchair, Crutches, etc.)? No PATIENT GENDER DATA: Female. status: : No status: NO. PATIENT RELEVANT IMPLANT DATA REVIEWED: Yes RADIOLOGY DEPARTMENT: MR; Exam(s) Completed: Head: IAC/CPA PERIPHERAL IV DATA: Site assessment: Clean,Dry and Intact, Site disposition Discontinued SIGNED BY: Vivian Infante PlayerLync April 23, 2023 1:41 PM documented in this encounter [facility] 03-28-2023 Nurse Note EVENT MONITOR DISPOSABLE PATCH INSTRUCTIONS Patient Name: Maricruz Tejada Clinic Number: [id number] Skin prepped and cleansed with alcohol Patch secured to prepped area Monitor Activated Serial #: [id number] Patient Instructed: Prescribed order timeframe Bathing guidelines Usage of event button and diary documentation Return of monitor at the end of prescribed order Call with problems [phone] or [phone]. [phone] Patient expresses a good understanding of instructions Juan A Recinos Ma documented in this encounter [facility] 03-28-2023 History of Presen t illness Narrative CC: Patient presents with: ED Follow-up: [facility] Maricruz Tejada is a 17 year old female who presents today for above. Patient was at work at [employer] when she developed sudden onset of lightheadedness and feeling faint. She had been sitting down getting report when symptoms started. The nurse took her BP and it was 155/95 and heart rate was in the 150's. She went to the ER. Limited information available in Care Everywhere. CBC, urinalysis and CMP unremarkable. She had EKG but no results found, patient was told it was normal. Since ER visit she has been experiencing palpitations, described as heart racing. Last for less than one minute. Heart rate on her watch has been in the 110's. Associated with SOB and blurred vision. Denies chest pain, edema, PND, orthopnea, syncope, near syncope, decreased exercise tolerance. Denies personal cardiac history. Her mother and maternal grandparents have hypertension. Does not drink any caffeine or alcohol. Water intake adequate, about 1 to 1.5 gallons a day. No smoking or illicit drug use. History of anxiety but patient does not feel any more anxious than usual. No increase in stress. No new medications. She has IUD and also taking oral BCP. REVIEW OF SYSTEMS General: no fevers, no chills, no night sweats, no change in energy, and no significant changes in weight HEENT: no frequent or significant headaches Respiratory: no cough, no wheezing, no hemoptysis Cardiovascular: See HPI GI: No nausea, vomiting, or diarrhea and No heartburn or reflux symptoms Endocrine: no hair loss, no dry skin, no cold intolerance, no heat intolerance, menstrual cycles being irregular, no trouble swallowing, and no neck pain/pressure PAST MEDICAL HISTORY Diagnosis Date Calculus of kidney PMDD (premenstrual dysphoric disorder) 2018 PAST SURGICAL HISTORY Procedure Laterality Date PAST SURGICAL HISTORY OF removal of renal calculi via lithotrypsy PAST SURGICAL HISTORY OF 06/24/2014 PCP of right thumb UNLISTED PROCEDURE LACRIMAL SYSTEM 02/20 DR WHEELER ALLERGIES Codeine and Tramadol MEDICATIONS iv contrast (will be provided with radiology test) MRI Brain Inject, intravenously, once for 1 dose.No IV access, insert saline lock prior to beginning of sedation, infusion, injection of imaging exam.Discontinue saline lock post exam. If Pt. has a central line or IVAD, may access for administration according to line specific nursing protocol.Once exam is complete flush line and de-access according to line specific nursing protocol in the MR contrast administration guidelines link DULoxetine (CYMBALTA) 20 mg capsule Take 2 capsules by mouth once daily. metoprolol succinate ER (TOPROL XL) 25 mg 24 hr tablet Take 1 tablet by mouth once daily. Norethindrone, Contraceptive, (ORTHO MICRONOR) 0.35 mg tablet Take 1 tablet by mouth once daily. rizatriptan (MAXALT ANIMAL GROOMER) 5 mg disintegrating tablet Take 1 tablet by mouth as needed. May repeat in 2 hours if needed levonorgestrel (KYLEENA) 17.5 mcg/24 hrs (5 yrs) 19.5 mg IUD 1 Each by INTRAUTERINE route as directed. FAMILY HISTORY Problem Relation Age of Onset Hypertension Mother None Father other (FIBROMYALGIA) Paternal Grandmother Hypertension Maternal Grandfather Lipids Maternal Grandfather Hypertension Maternal Grandmother Social History Tobacco Use Smoking status: Never Smokeless tobacco: Never Vaping Use Vaping Use: Never used Substance Use Topics Alcohol use: No Drug use: No PHYSICAL EXAM BP 137/90 Pulse 89 Resp 18 Wt 71.2 kg (157 lb) LMP 10/06/2022 BMI 27.81 kg/m General Appearance: well appearing, in no acute distress, alert Pysch: affect is anxious Skin: Skin color, texture, turgor normal for age; Eyes: conjunctiva pink and moist, no icterus, sclera white, non-injected Neck: Thyroid normal size and symmetric without palpable nodules, Neck supple, No adenopathy Lymph nodes: No supraclavicular lymphadenopathy Lungs: Lungs clear to auscultation. No wheezing, rhonchi, rales. Heart: RRR without murmur, gallop, or rubs. No ectopy Ext: no edema in LE bilaterally, good distal pulses DATA REVIEWED: Outside chart from [facility] in Care Everywhere reviewed. Limited information available ASSESSMENT/PLAN: 1. Palpitations - ICD9: 785.1, ICD10: R00.2 (primary diagnosis) EKG in ER normal. No alarm symptoms or exam findings today. Evaluate further with: - ECHO - PERFLUTREN LIPID MICROSPHERES 1.1 MG/ML INJECTION IN NS 10 ML - SODIUM CHLORIDE 0.9 % (FLUSH) INJECTION SYRINGE - OUTSIDE VENDOR CARDIAC OUTPATIENT EXTENDED RHYTHM RECORDING (WITHOUT TELEMETRY) - TSH BLD Follow-up in one month or sooner as needed 2. Elevated blood pressure reading without diagnosis of hypertension - ICD9: 796.2, ICD10: R03.0 Possible causes included transient elevation, anxiety, medication side effect (oral BCP or Cymbalta) - Recommend home blood pressure monitoring, to bring results in on next visit Work up as above - ECHO - PERFLUTREN LIPID MICROSPHERES 1.1 MG/ML INJECTION IN NS 10 ML - SODIUM CHLORIDE 0.9 % (FLUSH) INJECTION SYRINGE - TSH BLD 3. Episodic lightheadedness - ICD9: 780.4, ICD10: R42 As above Prescription instructions reviewed with patient as applicable. Potential red flag symptoms discussed with the patient. Reviewed appropriate action plan to take if red flag symptoms occur. Patient agreeable to treatment plan. Kathy Duffy APRN.CNP documented in this encounter [facility] 03-26-2023 History of Presen t illness Narrative History: Maricruz Tejada, a 17 year old female, presents for evaluation of L hearing loss, noted about 1 y ago - grad worsening. Occ L ear ringing. Denies dizziness, ear pressure, pain, itching, drainage, nasal congestion, runny-nose, post-nasal drip. No history of noise exposure. No history of ear infections. No history of ear surgery. No history of ear trauma. No history of allergies. PAST MEDICAL HISTORY Diagnosis Date Calculus of kidney PMDD (premenstrual dysphoric disorder) 2018 PAST SURGICAL HISTORY Procedure Laterality Date PAST SURGICAL HISTORY OF removal of renal calculi via lithotrypsy PAST SURGICAL HISTORY OF 06/24/2014 PCP of right thumb UNLISTED PROCEDURE LACRIMAL SYSTEM 02/20 DR WHEELER PE: Alert; oriented; well-developed; no apparent distress. Normal voice; normal communication. Eyes: EOMI, pupils symmetric and reactive bilaterally. Nose: patent, normal mucosa, no congestion, no rhinorrhea. Oral cavity, oropharynx: No ulcerative or mass lesions, tongue midline, palate elevates symmetrically, tongue base and floor of mouth soft. Neck: nontender, no lymphadenopathy or masses. Thyroid: no masses. Face: symmetric, sinuses nontender, skin without lesions. Salivary glands: normal size, nontender, no masses. Ears: R: EAC free of lesions. TM clear and mobile. L: EAC free of lesions. TM clear and mobile. Neurologic: binder cutter hand II-XII grossly intact. Independent interpretation of test.: Audiogram 03/26/23 was interpreted: mild L SNHL at 250-1 k, 3 K. SRT 15. WRS 100. Assessment/Plan: Mild L SNHL. Rec MRI to r/o CPA path. F/up 2-3 d after. If neg, consider audio in 6 mos. Medical Decision Making: Problems: Low: Acute, uncomplicated illness or injury Data: Independent interpretation of test from other physician/QHCP Risk: Low: Low risk from testing/treatment Medical Decision Making Level: 3 - Low documented in this encounter [facility] 03-26-2023 History of Presen t illness Narrative [facility] [place] AUDIOLOGIC EVALUATION REPORT Name: Maricruz Tejada CCF#: [id number] Date of Service: 03/26/2023 Date of : 2005 Age: [age] year old Referred by: Kelsi Bermudez APRN, SENIOR ACCOUNT CLERK [address] [facility] [address] Referred for: Evaluation of suspected change in hearing, tinnitus, or balance. Referral documented: In an order in [facility] Patient's major complaints: Reduced hearing in the left ear, Tinnitus in the left ear Maricruz Tejada is a 17 year old female who presents with muffled hearing in her left ear for about a year. She reports intermittent, left sided tinnitus. She had some ear pain months ago but no ear pain today. She denies ear drainage or dizziness. Maricruz Tejada was seen for an initial audiologic evaluation. [facility] for additional reported history and symptoms. Risk of Falls Documentation for over 65 years old: Does not apply IMPRESSIONS RIGHT EAR: Unspecified loss at 6000 Hz LEFT EAR: Sensorineural hearing loss Comparison of today's results with previous test results : No previous results available AUDIOLOGIC EVALUATION Following is a brief interpretation of the obtained findings from the audiologic evaluation. Refer to the Auditory Test Record for complete audiometric results. The patient was counseled about the test findings and appropriate audiologic recommendations were made. SUMMARY: Audiogram can be viewed under Forms/Audiology/SmartForm. OTOSCOPY RIGHT EAR: Otoscopic inspection revealed ear canal was clear with minimal amount of non-occluding cerumen present and identifiable cone of light suggesting WNL middle ear system. LEFT EAR: Otoscopic inspection revealed ear canal was clear with an identifiable cone of light. TYMPANOMETRY Description of procedure: This test is an objective evaluation of middle ear function. CPT code: 67973 RIGHT EAR: Normal ME function. LEFT EAR: Normal ME function. ACOUSTIC REFLEXES Description of procedure: This test is an objective measure of auditory and facial nerve pathways. CPT code: 93384, 94029 RIGHT EAR PROBE EAR: (ipsi right stimulus ear; contralateral left stimulus ear): Acoustic Reflex Pattern Did not test Acoustic Reflex Decay (left stimulus ear): Did not test. LEFT EAR PROBE EAR: (ipsi left stimulus ear; contralateral right stimulus ear): Acoustic Reflex Pattern Did not test Acoustic Reflex Decay (right stimulus ear):Did not test. PURE TONE AUDIOMETRY AND SPEECH TESTING Description of procedure: This test is an objective evaluation hearing sensitivity via air and bone conduction and speech recognition testing. CPT code:92365 RIGHT EAR: Hearing Sensitivity: Normal hearing sensitivity from 250-4000 Hz sloping to a moderate unspecified loss at 6000 Hz and rising to normal at 8000 Hz. Word Recognition Score: Excellent (90-100%). WRS is consistent with hearing sensitivity. Words were presented at 50 dB HL approximates (45-55 dB HL) intensity level for average conversational speech. The NU-6 Ordered by Difficulty Word List (10 words) was used for testing. and Contralateral masking was used. LEFT EAR: Hearing Sensitivity: Mild sensorineural hearing loss from 250-1000 Hz rising to normal hearing at 2000 Hz and mild loss at 3000 Hz, normal hearing at 4000 Hz and a very mild unspecified loss from 4028-3738 Hz. Word Recognition Score: Excellent (90-100%). WRS is consistent with hearing sensitivity. Words were presented at 55 dB HL which approximates (45-55 dB HL) intensity level for average conversational speech. The NU-6 Ordered by Difficulty Word List (10 words) was used for testing. and Contralateral masking was used. RECOMMENDATIONS * Continue medical follow-up with Froy Trcay MD. * Return if a change in hearing is noted. Celsa Wesley, [place], [facility] Abbrev- iation Definition Degree of hearing sensitivity dB range WNL within normal limits WNL 0 - 20 SNHL sensorineural hearing loss Mild 20-40 CHL conductive hearing loss Moderate 40-55 MHL mixed hearing loss Moderately-Severe 55-70 WRS word recognition score Severe 70-90 ME middle ear Profound 90 + TM tympanic membrane documented in this encounter [facility] 03-21-2023 Hospital Discharg e instructions Patient Education 03/21/2023 17:42:02 Near Syncope, Vasovagal Near-Fainting: Vagal Reaction Fainting (syncope) is a temporary loss of consciousness (passing out). It is associated with a loss of postural tone. Postural tone is the constant contraction of the muscles in your body to help keep your body upright. It also helps blood return towards the heart and brain. Syncope occurs when there is reduced blood flow to the brain due to this common vagal reaction. A vagal reaction is a reflex response that causes a sudden drop in your blood pressure, and your pulse to slow down. If the pulse is low enough, the blood pressure falls and causes fainting or near-fainting. Lying down usually stops the reaction very quickly. These are symptoms of near-fainting: Feeling lightheaded or like you are going to faint Weak pulse Nausea Sweating Blurred vision or feeling like your vision is blacking out Palpitations Chest pain Trouble breathing Cool and clammy skin Causes for near-fainting include: Sudden emotional stress like fear, pain, panic, sight of blood Straining or overexertion, straining while using the toilet, coughing, sneezing Standing up too quickly, or standing up for too long a time Home care The following will help you care for yourself at home: Rest today and go back to your normal activities as soon as you are feeling back to normal. If you become light-headed or dizzy, lie down right away or sit with your head lowered between your knees. Stay hydrated and do not skip meals. Don't stand for long periods or stay in hot places Do what you can to prevent constipation. If you bear down excessively when trying to have a bowel movement, this can trigger a vagal response There may be other causes for a vagal response and near-syncope. For example, this can happen after open-heart surgery when the heart muscle is inflamed and irritated. Check with your doctor to see if there is testing you need such as a tilt-table test, heart rhythm monitoring, or blood tests. Review the medicines you take with your healthcare provider and pharmacist to be sure the symptoms you have are not a side effect of a medicine. Follow-up care Follow up with your healthcare provider, or as advised. If you are having frequent episodes of near-syncope or vagal reactions, be cautious about activities such as driving that could harm yourself or others if you were to faint. Do not drive or operate heavy machinery if you are feeling like you may faint. Call 911 Call 911 if any of these occur: Another fainting spell occurs, and it is not explained by the common causes listed above Fainting or loss of consciousness Chest, arm, neck, jaw, back, or abdominal pain Shortness of breath Weakness, tingling, or numbness in one side of the face, one arm or leg Slurred speech, confusion, trouble walking or seeing Seizure Blood in vomit or stools (black or red color) When to seek medical advice Call your healthcare provider right away if you have occasional mild lightheadedness, especially when standing up. [phone] [employer]. [address] [place] [address]. All rights reserved. This information is not intended as a substitute for professional medical care. Always follow your healthcare professional's instructions. Follow Up Care 03/21/2023 15:32:41 With:CELSO FREIRE DO Address: [address] [place] [address]- When:2-4 days [facility] 03-21-2023 Emergency department Discharge summary Discharge Instructions Thank you for allowing [facility] to assist you with your healthcare needs. The following is important discharge information regarding your hospital visit. Diagnosis from Today's Visit Dizziness HTN - Hypertension What to Do Next Instructions from Your Care Team Follow-up with your doctor regarding your blood pressure readings. Your blood pressure is 151/88 here. Return if your blood pressure goes over 180 systolic or 100 diastolic and you are having symptoms such as chest pain, shortness of breath, or vision changes. No qualifying data available. Post Acute Orders No qualifying data available. You Need to Schedule the Following Appointments Follow Up with CELSO FREIRE DO When Within 2-4 days Where: [address] [place], [place] [address]- Allergies codeine traMADol Medications Please ask your primary doctor or pharmacist before taking any other medication not listed, including over the counter drugs, herbal medications, vitamins and or supplements as they may interact with your home medications. Please take this list to your next doctor s visit. Bring all medications you take, including over the counter medications, herbals and other supplements with you to your doctor s visit. Patients and families are reminded to discard old lists and to update any records with all medication providers or retail pharmacies. Education Materials Near-Fainting: Vagal Reaction Fainting (syncope) is a temporary loss of consciousness (passing out). It is associated with a loss of postural tone. Postural tone is the constant contraction of the muscles in your body to help keep your body upright. It also helps blood return towards the heart and brain. Syncope occurs when there is reduced blood flow to the brain due to this common vagal reaction. A vagal reaction is a reflex response that causes a sudden drop in your blood pressure, and your pulse to slow down. If the pulse is low enough, the blood pressure falls and causes fainting or near-fainting. Lying down usually stops the reaction very quickly. These are symptoms of near-fainting: Feeling lightheaded or like you are going to faint Weak pulse Nausea Sweating Blurred vision or feeling like your vision is blacking out Palpitations Chest pain Trouble breathing Cool and clammy skin Causes for near-fainting include: Sudden emotional stress like fear, pain, panic, sight of blood Straining or overexertion, straining while using the toilet, coughing, sneezing Standing up too quickly, or standing up for too long a time Home care The following will help you care for yourself at home: Rest today and go back to your normal activities as soon as you are feeling back to normal. If you become light-headed or dizzy, lie down right away or sit with your head lowered between your knees. Stay hydrated and do not skip meals. Don't stand for long periods or stay in hot places Do what you can to prevent constipation. If you bear down excessively when trying to have a bowel movement, this can trigger a vagal response There may be other causes for a vagal response and near-syncope. For example, this can happen after open-heart surgery when the heart muscle is inflamed and irritated. Check with your doctor to see if there is testing you need such as a tilt-table test, heart rhythm monitoring, or blood tests. Review the medicines you take with your healthcare provider and pharmacist to be sure the symptoms you have are not a side effect of a medicine. Follow-up care Follow up with your healthcare provider, or as advised. If you are having frequent episodes of near-syncope or vagal reactions, be cautious about activities such as driving that could harm yourself or others if you were to faint. Do not drive or operate heavy machinery if you are feeling like you may faint. Call 911 Call 911 if any of these occur: Another fainting spell occurs, and it is not explained by the common causes listed above Fainting or loss of consciousness Chest, arm, neck, jaw, back, or abdominal pain Shortness of breath Weakness, tingling, or numbness in one side of the face, one arm or leg Slurred speech, confusion, trouble walking or seeing Seizure Blood in vomit or stools (black or red color) When to seek medical advice Call your healthcare provider right away if you have occasional mild lightheadedness, especially when standing up. [id number] [employer]. [address] [place] [address]. All rights reserved. This information is not intended as a substitute for professional medical care. Always follow your healthcare professional's instructions. Additional Information VACCINATE! IT SAVES LIVES! Members of the community who have not yet received the COVID-19 vaccine and would like to receive it can visit one of [facility] vaccine clinics. There are many vaccine clinic locations within the [facility]. For locations and available times, please visit [email or web address] It is important to note that some COVID mobile vaccine clinics are held outdoors and may be canceled in rainy or stormy conditions. To learn more about pediatric vaccinations (ages 5-11), we invite you to visit the [facility] webpage. https://[email or web address]/p [email or web address]-Snmnw-Ggsxwwafkfn-Freq ajluca-Ahnyk-Pipjsakvd.html To learn more about the COVID-19 vaccine, we invite you to visit the CDC website for a list of frequently asked questions. https://www.cdc.gov/coronavirus/ 2019-ncov/vaccines/faq.html [facility] Patient Portal Access Instructions: Stay connected with your healthcare team and access your personal medical information anytime with the [facility] Patient Portal. If you would like a full copy of your medical records please contact the [facility] Medical Records Department Sunday through Sunday between 8a.m. and 4:30p.m. Please follow the directions below to access the portal: 1.Access the email account you provided upon registration to the [facility].2.Look for an invitation email from [facility].3.Open the email and access the invitation link: Accept Invitation to [facility]4.Fill in the required bernal to create your account. Sign into [email or web address] with your username and password that you created in the above steps to stay up to date. You can then view a summary of results, a summary of your visits, and the ability to download your summaries to your computer or send the information securely to a physician. Remember that your healthcare information is confidential, so carefully consider who you will allow to register on the [facility] Patient Portal for access to your information. You can also access the [facility] Patient Portal on the [employer] eliseo. Simply click on Health Records under Health Data and then click on the [facility] logo. HOW TO SAFELY DISPOSE OF PRESCRIPTION MEDICATIONS Please use one of the following methods to safely dispose of your unused medications. 1.Use a drug disposal kit: the drug disposal pouch allows you to safely discard your old and unused drugs. Ask your nurse to give you one when you are discharged.2.Visit a local take-back location: Many local pharmacies and police departments have programs that collect old and unwanted prescription drugs. Call your local pharmacy or go to http://bit.Hallspot/5A4Ix3h to find one close to you.3.Make use of household items: Use cat litter or old coffee grounds to dispose medications if other options are not available. Mix your drugs with these household products, seal them in an airtight container and throw it into the garbage. Call [facility]: [phone] to be sure your drugs can be disposed of in this way. Some medicines may require a different approach.4.Never flush your medications down the toilet. IF YOU HAVE BEEN PRESCRIBED AN OPIOIDS FOR PAIN If you have been prescribed an opioid (such as hydrocodone, oxycodone or morphine), it is critical to understand the possible side effects and risks of opioid pain medications. Even when taken as directed, opioids can have several side effects including: Tolerance, meaning you might need to take more of a medication for the same pain relief. Nausea, vomiting and/or constipation. Sleepiness, dizziness, dry mouth, confusion, depression or itching. Physical dependence, meaning you have withdrawal symptoms when a medication is stopped ? this can develop within a few days. KNOW YOUR RESPONSIBILITIES It is important to know exactly how much and how often to take the opioid pain medications you are prescribed. Never take opioids in higher amounts or more often than prescribed. Do not combine opioids with alcohol or other drugs that cause drowsiness, such as benzodiazepines, also known as benzos, including diazepam and alprazolam, muscle relaxants or sleep aids. Never sell or share prescription opioids. This is illegal. Store opioids in a secure place and out of reach of others (including children, family, friends and visitors). The last page(s) of this document has been signed and retained as a CHART COPY Signatures Patient Education Materials Near Syncope, Vasovagal Medication Leaflets My discharge plan and instructions have been reviewed and explained to me and I,MARICRUZ TEJADA understand my current condition and have read and understand these discharge instructions. I have received a written copy of the plan/instructions. If I have questions, I am aware that I should contact my doctor. Patient/Other Sports Official Signature: Date/Time: Relationship to Patient: Witness Name/Signature: Date/Time: [facility] 03-21-2023 Emergency department Discharge summary Discharge Instructions Thank you for allowing [facility] to assist you with your healthcare needs. The following is important discharge information regarding your hospital visit. Diagnosis from Today's Visit Dizziness HTN - Hypertension What to Do Next Instructions from Your Care Team Follow-up with your doctor regarding your blood pressure readings. Your blood pressure is 151/88 here. Return if your blood pressure goes over 180 systolic or 100 diastolic and you are having symptoms such as chest pain, shortness of breath, or vision changes. No qualifying data available. Post Acute Orders No qualifying data available. You Need to Schedule the Following Appointments Follow Up with CELSO FREIRE DO When Within 2-4 days Where: [address] [place] [address]- Allergies codeine traMADol Medications Please ask your primary doctor or pharmacist before taking any other medication not listed, including over the counter drugs, herbal medications, vitamins and or supplements as they may interact with your home medications. Please take this list to your next doctor s visit. Bring all medications you take, including over the counter medications, herbals and other supplements with you to your doctor s visit. Patients and families are reminded to discard old lists and to update any records with all medication providers or retail pharmacies. Education Materials Near-Fainting: Vagal Reaction Fainting (syncope) is a temporary loss of consciousness (passing out). It is associated with a loss of postural tone. Postural tone is the constant contraction of the muscles in your body to help keep your body upright. It also helps blood return towards the heart and brain. Syncope occurs when there is reduced blood flow to the brain due to this common vagal reaction. A vagal reaction is a reflex response that causes a sudden drop in your blood pressure, and your pulse to slow down. If the pulse is low enough, the blood pressure falls and causes fainting or near-fainting. Lying down usually stops the reaction very quickly. These are symptoms of near-fainting: Feeling lightheaded or like you are going to faint Weak pulse Nausea Sweating Blurred vision or feeling like your vision is blacking out Palpitations Chest pain Trouble breathing Cool and clammy skin Causes for near-fainting include: Sudden emotional stress like fear, pain, panic, sight of blood Straining or overexertion, straining while using the toilet, coughing, sneezing Standing up too quickly, or standing up for too long a time Home care The following will help you care for yourself at home: Rest today and go back to your normal activities as soon as you are feeling back to normal. If you become light-headed or dizzy, lie down right away or sit with your head lowered between your knees. Stay hydrated and do not skip meals. Don't stand for long periods or stay in hot places Do what you can to prevent constipation. If you bear down excessively when trying to have a bowel movement, this can trigger a vagal response There may be other causes for a vagal response and near-syncope. For example, this can happen after open-heart surgery when the heart muscle is inflamed and irritated. Check with your doctor to see if there is testing you need such as a tilt-table test, heart rhythm monitoring, or blood tests. Review the medicines you take with your healthcare provider and pharmacist to be sure the symptoms you have are not a side effect of a medicine. Follow-up care Follow up with your healthcare provider, or as advised. If you are having frequent episodes of near-syncope or vagal reactions, be cautious about activities such as driving that could harm yourself or others if you were to faint. Do not drive or operate heavy machinery if you are feeling like you may faint. Call 911 Call 911 if any of these occur: Another fainting spell occurs, and it is not explained by the common causes listed above Fainting or loss of consciousness Chest, arm, neck, jaw, back, or abdominal pain Shortness of breath Weakness, tingling, or numbness in one side of the face, one arm or leg Slurred speech, confusion, trouble walking or seeing Seizure Blood in vomit or stools (black or red color) When to seek medical advice Call your healthcare provider right away if you have occasional mild lightheadedness, especially when standing up. [phone] [employer]. [address] [place] [address]. All rights reserved. This information is not intended as a substitute for professional medical care. Always follow your healthcare professional's instructions. Additional Information VACCINATE! IT SAVES LIVES! Members of the community who have not yet received the COVID-19 vaccine and would like to receive it can visit one of [facility] vaccine clinics. There are many vaccine clinic locations within the [facility]. For locations and available times, please visit [email or web address] It is important to note that some COVID mobile vaccine clinics are held outdoors and may be canceled in rainy or stormy conditions. To learn more about pediatric vaccinations (ages 5-11), we invite you to visit the [facility] webpage. https://www.[email or web address]/p ages/[email or web address]-Agylu-Fschlexsqem-Freq zpbxnh-Qndsd-Kctxglqce.html To learn more about the COVID-19 vaccine, we invite you to visit the CDC website for a list of frequently asked questions. https://www.cdc.gov/coronavirus/ 2019-ncov/vaccines/faq.html [facility] Patient Portal Access Instructions: Stay connected with your healthcare team and access your personal medical information anytime with the [facility] Patient Portal. If you would like a full copy of your medical records please contact the [facility] Medical Records Department Sunday through Sunday between 8a.m. and 4:30p.m. Please follow the directions below to access the portal: 1.Access the email account you provided upon registration to the hospital.2.Look for an invitation email from [facility].3.Open the email and access the invitation link: Accept Invitation to [facility].Fill in the required bernal to create your account. Sign into [email or web address] with your username and password that you created in the above steps to stay up to date. You can then view a summary of results, a summary of your visits, and the ability to download your summaries to your computer or send the information securely to a physician. Remember that your healthcare information is confidential, so carefully consider who you will allow to register on the [facility] Patient Portal for access to your information. You can also access the [facility] Patient Portal on the [employer]. Simply click on Health Records under Health Data and then click on the [employer] logo. HOW TO SAFELY DISPOSE OF PRESCRIPTION MEDICATIONS Please use one of the following methods to safely dispose of your unused medications. 1.Use a drug disposal kit: the drug disposal pouch allows you to safely discard your old and unused drugs. Ask your nurse to give you one when you are discharged.2.Visit a local take-back location: Many local pharmacies and police departments have programs that collect old and unwanted prescription drugs. Call your local pharmacy or go to http://NeXeption.Hallspot/4Q7Tx2x to find one close to you.3.Make use of household items: Use cat litter or old coffee grounds to dispose medications if other options are not available. Mix your drugs with these household products, seal them in an airtight container and throw it into the garbage. Call [facility]: [phone] to be sure your drugs can be disposed of in this way. Some medicines may require a different approach.4.Never flush your medications down the toilet. IF YOU HAVE BEEN PRESCRIBED AN OPIOIDS FOR PAIN If you have been prescribed an opioid (such as hydrocodone, oxycodone or morphine), it is critical to understand the possible side effects and risks of opioid pain medications. Even when taken as directed, opioids can have several side effects including: Tolerance, meaning you might need to take more of a medication for the same pain relief. Nausea, vomiting and/or constipation. Sleepiness, dizziness, dry mouth, confusion, depression or itching. Physical dependence, meaning you have withdrawal symptoms when a medication is stopped ? this can develop within a few days. KNOW YOUR RESPONSIBILITIES It is important to know exactly how much and how often to take the opioid pain medications you are prescribed. Never take opioids in higher amounts or more often than prescribed. Do not combine opioids with alcohol or other drugs that cause drowsiness, such as benzodiazepines, also known as benzos, including diazepam and alprazolam, muscle relaxants or sleep aids. Never sell or share prescription opioids. This is illegal. Store opioids in a secure place and out of reach of others (including children, family, friends and visitors). The last page(s) of this document has been signed and retained as a CHART COPY Signatures Patient Education Materials Near Syncope, Vasovagal Medication Leaflets My discharge plan and instructions have been reviewed and explained to me and IMALLORY SAVANNAH understand my current condition and have read and understand these discharge instructions. I have received a written copy of the plan/instructions. If I have questions, I am aware that I should contact my doctor. Patient/Other Sports Official Signature: Date/Time: Relationship to Patient: Witness Name/Signature: Date/Time: [facility] 02-19-2023 Miscellaneous Notes Pt has changed pharmacies and is wanting her medication sent to that pharmacy. See Lalalama message. Ashley Dean LPN documented in this encounter [facility] 12-04-2022 Miscellaneous Notes Vite message not read as of 12/04/2022. Called and spoke with patient. She is aware that appt has been cancelled. She declined rescheduling, as she feels an OV is not necessary at this time. Informed patient to contact the office if she needs anything in the future. Apoorva Navarro documented in this encounter [facility] 11-29-2022 Miscellaneous Notes Patient phones requesting refills as follows: Requested Prescriptions Pending Prescriptions Disp Refills DULoxetine (CYMBALTA) 20 mg capsule [Pharmacy Med Name: DULOXETINE HCL DR 20 MG CAP] 90 capsule 1 Sig: TAKE 1 CAPSULE BY MOUTH ONCE DAILY MATTHEW-11/06/22 Labs-07/28/22 NOV-12/18/22 med filled 11/06/22 Please review and advise. Alyce Randall LPN documented in this encounter [facility] 11-06-2022 Instructions Kelsi Bermudez APRN.SENIOR ACCOUNT CLERK - 11/06/2022 10:08 AM EST Start the Cymbalta tomorrow. Zoloft taper: For the next 7 days take 50mg daily (which is half of your 100mg tablet) The following 7 days take 25mg daily. Then the next 7 days take the 25mg tablet every other day. Then you're done. Hold on the Adderall for now. documented in this encounter [facility] 11-06-2022 History of Presen t illness Narrative Chief Complaint Patient presents with: Medication Follow-up: Discuss Zoloft & adderall HPI Maricruz Tejada is a 17 year old female who presents here today for Above Complaints. Today: Mother is wondering if patient may be having side effects from the Zoloft-headaches, difficulty focusing. These seem to have started around the same time that she started on the Zoloft. Mother questioning if patient needs a medication for her depression and anxiety at all. Per patient-she is willing to taper off the Zoloft to see if any of her symptoms, specifically the memory and difficulty focusing, improve. However, she would like to switch to another medication. Does not feel that she should be off medications all together at this time. States mood is stable right now-no SI/HI. Past medical history, appointments, medications, allergies reviewed. Previous Medical History PAST MEDICAL HISTORY Diagnosis Date Calculus of kidney PMDD (premenstrual dysphoric disorder) 2018 Previous Surgical History PAST SURGICAL HISTORY Procedure Laterality Date PAST SURGICAL HISTORY OF removal of renal calculi via lithotrypsy PAST SURGICAL HISTORY OF 06/24/2014 PCP of right thumb UNLISTED PROCEDURE LACRIMAL SYSTEM 02/20 DR WHEELER Family History FAMILY HISTORY Problem Relation Age of Onset Hypertension Mother None Father other (FIBROMYALGIA) Paternal Grandmother Hypertension Maternal Grandfather Lipids Maternal Grandfather Hypertension Maternal Grandmother Patient Allergies ALLERGIES Allergen Reactions Codeine Tramadol Itching, Other: See Comments Dizziness Current Medications Current Outpatient Medications on File Prior to Visit Medication Sig Norethindrone, Contraceptive, (ORTHO MICRONOR) 0.35 mg tablet Take 1 tablet by mouth once daily. dextroamphetamine-amphetamine (ADDERALL) 5 mg tablet Take 1 tablet by mouth once daily for 30 days. metoprolol succinate ER (TOPROL XL) 25 mg 24 hr tablet TAKE 1 TABLET BY MOUTH EVERY DAY sertraline (ZOLOFT) 100 mg tablet TAKE 1 AND 1/2 TABLETS DAILY BY MOUTH (Patient taking differently: TAKE 1 TABLETS DAILY BY MOUTH) levonorgestrel (KYLEENA) 17.5 mcg/24 hrs (5 yrs) 19.5 mg IUD 1 Each by INTRAUTERINE route as directed. No current facility-administered medications on file prior to visit. Social History Social History Tobacco Use Smoking status: Never Smokeless tobacco: Never Vaping Use Vaping Use: Never used Substance Use Topics Alcohol use: No Drug use: No Review of Symptoms REVIEW OF SYSTEMS See HPI, otherwise negative EXAM: BP 118/82 (BP Site: Left Arm, BP Position: Sitting, BP Cuff Size: Regular Adult) Pulse 80 Resp 16 Wt 71.3 kg (157 lb 3.2 oz) LMP 10/06/2022 SpO2 100% BMI 27.85 kg/m General Appearance: Well appearing, alert, in no acute distress, well-hydrated, well nourished.. Psychiatric: pleasant, cooperative, no SI/HI. Health Maintenance List COVID-19 VACCINE(1) Never done ASTHMA ACTION PLAN Never done ASTHMA CONTROL TEST Never done PNEUMOCOCCAL(1 - PCV) due on 2009 MENINGOCOCCAL B: Consider based on risk(1 of 2 - Risk Bexsero 2-dose series) Never done SPIROMETRY Never done GC (GONORRHEA) SCREENING (18-24) Never done HEPATITIS C SCREENING Never done HIV SCREENING Never done CHLAMYDIA SCREENING (18-24) Never done DEPRESSION ASSESSMENT Never done ANNUAL PCP TEAM CHRONIC DISEASE VISIT due on 10/09/2023 DTAP,TDAP,TD(7 - Td or Tdap) due on 09/22/2025 HEPATITIS B Completed HPV VACCINE Completed INFLUENZA Completed MENINGOCOCCAL CONJUGATE Completed Data reviewed Previous records, office notes ASSESSMENT/PLAN: 1. Anxiety with depression - ICD9: 300.4, ICD10: F41.8 Hold Adderall for now. Taper off sertraline. Begin daily duloxetine. Follow up in 4-6 weeks. - DULOXETINE 20 MG CAPSULE,DELAYED RELEASE - SERTRALINE 25 MG TABLET Kelsi Bermudez APRN.MAYA Greater than 50% of 35-minute visit spent face to face with patient in counseling and education. documented in this encounter [facility] 10-10-2022 History of Presen t illness Narrative Maricruz Tejada is a 17 year old female who presents for problem visit irregular cycle for 1 month(s). HPI: 2 periods this month lasted 7-8 days with severe cramping 1st period was heavy the 2nd was core fitter She is having severe cramping and heavy flow with monthly cycle OB History T0 L0 SAB0 IAB0 Ectopic0 Multiple0 Live Births0 Sales Contractor History LMP: 10/06/2022, IUD Age at Menarche: Age at First : Age at Menopause: Sales Contractor History Comments: Sexual Activity: Never; No partner data on record Contraception: No contraception data on record PAST MEDICAL HISTORY Diagnosis Date Calculus of kidney PMDD (premenstrual dysphoric disorder) 2019 PAST SURGICAL HISTORY Procedure Laterality Date PAST SURGICAL HISTORY OF removal of renal calculi via lithotrypsy PAST SURGICAL HISTORY OF 06/24/2014 PCP of right thumb UNLISTED PROCEDURE LACRIMAL SYSTEM 02/20 DR WHEELER FAMILY HISTORY Problem Relation Age of Onset Hypertension Mother None Father other (FIBROMYALGIA) Paternal Grandmother Hypertension Maternal Grandfather Lipids Maternal Grandfather Hypertension Maternal Grandmother Social History Tobacco Use Smoking status: Never Smokeless tobacco: Never Vaping Use Vaping Use: Never used Substance Use Topics Alcohol use: No Drug use: No Current Outpatient Medications Medication Sig dextroamphetamine-amphetamine (ADDERALL) 5 mg tablet Take 1 tablet by mouth once daily for 30 days. rizatriptan (MAXALT ANIMAL GROOMER) 5 mg disintegrating tablet Take 1 tablet by mouth as needed. May repeat in 2 hours if needed metoprolol succinate ER (TOPROL XL) 25 mg 24 hr tablet TAKE 1 TABLET BY MOUTH EVERY DAY sertraline (ZOLOFT) 100 mg tablet TAKE 1 AND 1/2 TABLETS DAILY BY MOUTH (Patient taking differently: TAKE 1 TABLETS DAILY BY MOUTH) levonorgestrel (KYLEENA) 17.5 mcg/24 hrs (5 yrs) 19.5 mg IUD 1 Each by INTRAUTERINE route as directed. miSOPROStol (CYTOTEC) 200 mcg tablet Use 2 tablets vaginally as directed. The night before the procedure and the morning of the procedure. (Patient not taking: No sig reported) albuterol HFA (PROVENTIL HFA, VENTOLIN HFA) 90 mcg/actuation inhaler Inhale 2 Puffs as instructed every 4 hours as needed for wheezing/shortness of breath (tight cough). Dispense the brand approved by patient insurance (Patient not taking: No sig reported) fluticasone (FLONASE) 50 mcg/actuation nasal spray USE 1 SPRAY IN EACH NOSTRIL ONCE DAILY. UP TO TWICE A DAY IF NEEDED. RINSE MOUTH AFTER USE. (Patient not taking: Reported on 10/09/2022) No current facility-administered medications for this visit. Allergies As of Date: 10/10/2022 Allergen Noted Reaction CODEINE 07/03/2007 TRAMADOL 06/30/2014 Itching and Other: See Comments Fully Assessed 10/10/2022 REVIEW OF SYSTEMS Abdomen: No bloating, early satiety, indigestion, or increased flatulence. No abdominal pain, nausea, vomiting, diarrhea, or constipation. Bladder: No dysuria, gross hematuria, urinary frequency, urinary urgency, or incontinence. Expanded ROS: N/A Allergies and current medication updated:Yes EXAM: Wt 154 lb 6.4 oz (70.0kg) LMP 10/06/2022 GENERAL: pleasant, female in no apparent distress HEENT: Normocephalic, atraumatic, and no lesions CHEST: Normal inspiratory effort NEURO: alert and oriented x3,exam grossly non-focal EXTREMITIES: normal ASSESSMENT/PLAN: 1. Menstrual irregularity - ICD9: 626.4, ICD10: N92.6 (primary diagnosis) 2. Dysmenorrhea - ICD9: 625.3, ICD10: N94.6 - pt wishing to continue with the Kyleena at this time- this may be her issue due to her small uterus- Going to start micronor to see if that help with the periods and cramping. She doesn't was to remove the Kyleena at this due to her moods are really good at this time. Emely Handy APRN.CNP Medical Decision Making: Problems: Low: Acute, uncomplicated illness or injury Risk: Low: Low risk from testing/treatment Moderate: Drug management Medical Decision Making Level: 3 - Low documented in this encounter [facility] 10-09-2022 Instructions Kelsi Bermudez APRN.CNP - 10/09/2022 10:16 AM EST Schedule with the headache clinic. Continue your current medications. Begin taking the Adderall once daily in the mornings, we'll follow up in 1 month. documented in this encounter [facility] 10-09-2022 History of Presen t illness Narrative Chief Complaint Patient presents with: Recheck: Patient is here for follow up from Neurology appointment/meds HPI Maricruz Tejada is a 17 year old female who presents here today for Above Complaints. Today: Saw neurology 2 weeks ago. Was told she needed to see psychiatry to discuss ADHD for memory concerns. Was tested for concussion and told she was negative-patient already knew she didn't have a current concussion. Maxalt does work, typically on the first dose. Migraines 2-3x/week. But headaches at least 4-5x/week. No nausea. Pain is 5/10, typically in the mornings, in the base of her skull. Difficulty focusing. Does feel that she has some memory issues. Past medical history, appointments, medications, allergies reviewed. Previous Medical History PAST MEDICAL HISTORY Diagnosis Date Calculus of kidney PMDD (premenstrual dysphoric disorder) 2018 Previous Surgical History PAST SURGICAL HISTORY Procedure Laterality Date PAST SURGICAL HISTORY OF removal of renal calculi via lithotrypsy PAST SURGICAL HISTORY OF 06/24/2014 PCP of right thumb UNLISTED PROCEDURE LACRIMAL SYSTEM 02/20 DR WHEELER Family History FAMILY HISTORY Problem Relation Age of Onset Hypertension Mother None Father other (FIBROMYALGIA) Paternal Grandmother Hypertension Maternal Grandfather Lipids Maternal Grandfather Hypertension Maternal Grandmother Patient Allergies ALLERGIES Allergen Reactions Codeine Tramadol Itching, Other: See Comments Dizziness Current Medications Current Outpatient Medications on File Prior to Visit Medication Sig rizatriptan (MAXALT ANIMAL GROOMER) 5 mg disintegrating tablet Take 1 tablet by mouth as needed. May repeat in 2 hours if needed metoprolol succinate ER (TOPROL XL) 25 mg 24 hr tablet TAKE 1 TABLET BY MOUTH EVERY DAY sertraline (ZOLOFT) 100 mg tablet TAKE 1 AND 1/2 TABLETS DAILY BY MOUTH (Patient taking differently: TAKE 1 TABLETS DAILY BY MOUTH) levonorgestrel (KYLEENA) 17.5 mcg/24 hrs (5 yrs) 19.5 mg IUD 1 Each by INTRAUTERINE route as directed. miSOPROStol (CYTOTEC) 200 mcg tablet Use 2 tablets vaginally as directed. The night before the procedure and the morning of the procedure. (Patient not taking: No sig reported) albuterol HFA (PROVENTIL HFA, VENTOLIN HFA) 90 mcg/actuation inhaler Inhale 2 Puffs as instructed every 4 hours as needed for wheezing/shortness of breath (tight cough). Dispense the brand approved by patient insurance (Patient not taking: No sig reported) fluticasone (FLONASE) 50 mcg/actuation nasal spray USE 1 SPRAY IN EACH NOSTRIL ONCE DAILY. UP TO TWICE A DAY IF NEEDED. RINSE MOUTH AFTER USE. (Patient not taking: Reported on 10/09/2022) No current facility-administered medications on file prior to visit. Social History Social History Tobacco Use Smoking status: Never Smokeless tobacco: Never Vaping Use Vaping Use: Never used Substance Use Topics Alcohol use: No Drug use: No Review of Symptoms REVIEW OF SYSTEMS See HPI, otherwise negative EXAM: BP 118/88 (BP Site: Left Arm, BP Position: Sitting, BP Cuff Size: Regular Adult) Pulse 80 Resp 16 Wt 69.4 kg (153 lb) LMP 10/19/2021 BMI 27.10 kg/m General Appearance: Well appearing, alert, in no acute distress, well-hydrated, well nourished.. Lungs: Lungs clear to auscultation. No wheezing, rhonchi, rales.. Heart: RRR without murmur, gallop, or rubs. No ectopy. Neurologic: Gait normal. Reflexes normal and symmetric. Sensation grossly intact.. Psychiatric: pleasant, cooperative. Health Maintenance List COVID-19 VACCINE(1) Never done ASTHMA ACTION PLAN Never done ASTHMA CONTROL TEST Never done PNEUMOCOCCAL(1 - PCV) due on 2009 MENINGOCOCCAL B: Consider based on risk(1 of 2 - Risk Bexsero 2-dose series) Never done SPIROMETRY Never done GC (GONORRHEA) SCREENING (18-24) Never done HEPATITIS C SCREENING Never done HIV SCREENING Never done CHLAMYDIA SCREENING (18-24) Never done DEPRESSION ASSESSMENT Never done ANNUAL PCP TEAM CHRONIC DISEASE VISIT due on 07/28/2023 DTAP,TDAP,TD(7 - Td or Tdap) due on 09/22/2025 HEPATITIS B Completed HPV VACCINE Completed INFLUENZA Completed MENINGOCOCCAL CONJUGATE Completed Data reviewed Previous records, office notes ASSESSMENT/PLAN: 1. Migraine with aura, not intractable, without status migrainosus - ICD9: 346.00, ICD10: G43.109 (primary diagnosis) Continue current medications - CONSULT TO [facility] CL[facility]IC 2. Daily headache - ICD9: 784.0, ICD10: R51.9 Continue current medications - CONSULT TO [facility] CLINIC 3. H/O multiple concussions - ICD9: V15.52, ICD10: Z87.820 Continue current medications - CONSULT TO [facility] CLINIC 4. Attention deficit disorder (ADD) in adult - ICD9: 314.00, ICD10: F98.8 Begin daily Adderall. Patient is aware of common side effects. Follow up in 1 month for reassessment. - CONSULT TO [facility]ACHE CLINIC - DEXTROAMPHETAMINE-AMPHETAMINE 5 MG TABLET Kelsi Bermudez APRN.CNP Medical Decision Making: Problems: Moderate: New problem with uncertain prognosis Data: Unique source(s) for external note(s) reviewed: 2 Assessment requiring an independent historian(s) Independent interpretation of test from other physician/QHCP Discussed management or test w/ external physician/QHCP/source Risk: Low: Low risk from testing/treatment Medical Decision Making Level: 4 - Moderate documented in this encounter [facility] 09-28-2022 History of Presen t illness Narrative September 29, 2022 Accompanied by mother Subjective ,headache HISTORY AND PHYSICAL Maricruz Tejada 17 year old with headache Had multiple head concussions and migraine headache that is getting more frequent . End of December last concussion with no LOC Headache frequency have decreased since starting metoprolol By her primary physician. Once a week ,she gets episode of migraine headache,that's good improvement. She describes her headache as Throbbing pain in the back of head ,nausea Photophobia phonophbia No warning before the headache starts with no visual aura When she has the headache she lies down in bed to ease the headache which can worsen With movement She aslo feel that her memory is not good after the head concussion She can forget part of conversation Problems studying for tests , Lack of concentration , Review of Systems Review of Systems Constitutional: Negative Eyes: Negative Hent: Negative Cardiovascular: Negative Respiratory: Negative GI: Negative : Negative Endocrine: Negative Musculoskeletal: Negative Integumentary Positive for Hair Changes Heme/Lymph: Negative Allergy/Immunologic Positive for Nasal Congestion Neurologic Positive for Memory Problems and Headache Psychiatric Positive for Depression and Anxiety Patient's Review of Systems has been reviewed with the patient and updated as appropriate. Objective 09/28/22 1104 BP: 120/77 BP Site: Right Arm BP Position: Sitting BP Cuff Size: Regular Adult Pulse: 90 Resp: 16 SpO2: 97% Height: 160 cm (5' 3) Physical Exam EXAM: NOSE: no erythema or exudate PHARYNX: normal, no erythema NECK: supple and no adenopathy CHEST: Normal chest wall exam Neurological Exam MENTAL STATUS: Alert, oriented to person, place and time and Follows commands CRANIAL NERVES: EOM's intact, Visual bernal intact to confrontation, Facial sensation intact, Face symmetric, and No facial droop or ptosis MOTOR: No drift and Normal tone MOTOR STRENGTH: Upper and lower extremity 5/5 bilaterally REFLEXES: UE and LE reflexes are equal and reactive SENSATION: Intact light touch COORDINATION: Finger-to- nose-finger intact bilaterally GAIT: Normal-based PAST MEDICAL HISTORY Diagnosis Date Calculus of kidney PMDD (premenstrual dysphoric disorder) 2019 Current Outpatient Medications Medication Sig Dispense Refill metoprolol succinate ER (TOPROL XL) 25 mg 24 hr tablet TAKE 1 TABLET BY MOUTH EVERY DAY 90 tablet 1 sertraline (ZOLOFT) 100 mg tablet TAKE 1 AND 1/2 TABLETS DAILY BY MOUTH 270 tablet 1 levonorgestrel (KYLEENA) 17.5 mcg/24 hrs (5 yrs) 19.5 mg IUD 1 Each by INTRAUTERINE route as directed. 1 Each 0 fluticasone (FLONASE) 50 mcg/actuation nasal spray USE 1 SPRAY IN EACH NOSTRIL ONCE DAILY. UP TO TWICE A DAY IF NEEDED. RINSE MOUTH AFTER USE. 48 mL 1 miSOPROStol (CYTOTEC) 200 mcg tablet Use 2 tablets vaginally as directed. The night before the procedure and the morning of the procedure. (Patient not taking: No sig reported) 4 tablet 0 albuterol HFA (PROVENTIL HFA, VENTOLIN HFA) 90 mcg/actuation inhaler Inhale 2 Puffs as instructed every 4 hours as needed for wheezing/shortness of breath (tight cough). Dispense the brand approved by patient insurance (Patient not taking: No sig reported) 36 g 1 No current facility-administered medications for this visit. Social Connections: Not on file H/o multiple concussions Migraine with aura, not intractable, without status migrainosus Assessment and Plan Patient is 17 years old woman with post concussion headache as well as migraine headache , Responded well to beta gaby as preventive medication Discussed acute and preventive medication , Maxalt for acute headache treatment 1-Maintain regular sleep schedule. 2-Limit over the counter medications and prescription rescue meds to 2 days per week or less 3-Maintain headache diary. 4-Limit caffeine to 1-2, 8 oz cups per day or less (300 mg) 5-Limit diet sodas to12 oz or less per day. Avoid other sources of nutrasweet. 6-Avoid dietary triggers. (list given to pt) 7-Eat regular, frequent meals. 8- Keep hydrated. Drink at least 6-8, 8 oz glasses of water/d Total time in minutes spent with patient, reviewing records, labs, imaging, formulating plan, and documentin minutes with more than 50% of the time spent in patient education/counselling/coordinati ng care with the patient and /or family. Answered questions for the patient and her mother that accompanied the patient September 28, 2022 Follow up in 3 months Medications side effects discussed Liv Knapp M.D. [facility] Neurological [place] Department of Neurology documented in this encounter [facility] 08-28-2022 Miscellaneous Notes Patient phones requesting refills as follows: Requested Prescriptions Pending Prescriptions Disp Refills metoprolol succinate ER (TOPROL XL) 25 mg 24 hr tablet [Pharmacy Med Name: METOPROLOL SUCC ER 25 MG TAB] 30 tablet 1 Sig: TAKE 1 TABLET BY MOUTH EVERY DAY MATTHEW-07/28/22 Labs-07/28/22 NOV-none med filled 07/28/22 Please review and advise. Alyce Randall LPN documented in this encounter [facility] 08-19-2022 Instructions Caryl Schmidt APRN.SENIOR ACCOUNT CLERK - 08/19/2022 11:11 AM EDT Tylenol (generic acetaminophen) 500 mg-2 tabs every 8 hrs. as needed for fever and aches Ibuprofen 600 mg (3-200mg tablets) every 6 hours Wrist splint as needed for comfort Stretches given - if no improvement follow up with ortho for further evaluation and treatment. Xrays were completed and interpreted by the radiologist as negative for acute bony abnormality. documented in this encounter [facility] 08-19-2022 History of Presen t illness Narrative Radiology Service Progress Note PATIENT NAME: Maricruz Tejada DATE OF SERVICE: August 19, 2022 TIME: 10:50 AM PATIENT IDENTITY VERIFICATION COMPLETED USING TWO (2) IDENTIFIERS: Name and Date of confirmed by patient verbally. FALL SCREENING: Has the patient had 2 falls in the last year or 1 fall with injury or currently using an Ambulatory Assistive Device (Walker, Cane, Wheelchair, Crutches, etc.)? Yes, Patient High Risk for Falls What interventions were put in place to prevent falls during this visit? Increased Observations by Caregivers PATIENT GENDER DATA: Female. status: : No status: NO. PATIENT RELEVANT IMPLANT DATA REVIEWED: Not Applicable RADIOLOGY DEPARTMENT: General X-ray: Exam(s) Completed: Upper Extremity X-Ray(s): Wrist, left with Navicular views PERIPHERAL IV DATA: Not applicable SIGNED BY: RT Nia(R) August 19, 2022 10:50 AM documented in this encounter [facility] 08-19-2022 History of Presen t illness Narrative Images from the original note were not included. Subjective The history is provided by the patient. No wafer production lead worker was used. ADELA Teajda is a 17 year old female who presents today for CC of left wrist pain after a fall 3 days ago. She is having pain in snuff box area, into first metacarpal. She has not used any treatment, she has used iburpofen. No previous injury. BP 144/98 Pulse 93 Temp 36.2 C (97.1 F) Resp 18 Wt 68 kg (150 lb) LMP 10/19/2021 SpO2 99% Social History Tobacco Use Smoking status: Never Smokeless tobacco: Never Vaping Use Vaping Use: Never used Substance Use Topics Alcohol use: No Drug use: No PAST MEDICAL HISTORY Diagnosis Date Calculus of kidney PMDD (premenstrual dysphoric disorder) 2018 I have confirmed and edited as necessary, the [facility] Review of Systems Constitutional: Negative for chills and fever. Musculoskeletal: Positive for joint pain (left wrist). Negative for myalgias. Skin: Negative for itching and rash. All other systems reviewed and are negative. Objective Physical Exam Vitals and nursing note reviewed. Cardiovascular: Pulses: Radial pulses are 2+ on the right side and 2+ on the left side. Pulmonary: Effort: Pulmonary effort is normal. Musculoskeletal: Right wrist: Normal. Left wrist: Swelling, tenderness, bony tenderness and snuff box tenderness present. No deformity, effusion, lacerations or crepitus. Decreased range of motion. Normal pulse. Hands: Skin: General: Skin is warm and dry. Neurological: Mental Status: She is alert and oriented to person, place, and time. Sensory: Sensation is intact. Psychiatric: Mood and Affect: Affect normal. ASSESSMENT/PLAN: 1. Left wrist pain - ICD9: 719.43, ICD10: M25.532 Rest, ice, elevation, 1 left - Thumb spica wrist splint - from EC stock suppled. Tylenol (generic acetaminophen) 500 mg-2 tabs every 8 hrs. as needed for fever and aches Ibuprofen 600 mg (3-200mg tablets) every 6 hours if pain persists beyond 10-14 days there are times where a repeat x-ray is needed to rule out occult fracture Follow up with ortho as needed - XR WRIST INJURY 4V PA/LAT/OBL/SCAPH LEFT FINDINGS: No fractures or dislocations are seen. The bones, joint spaces and soft tissues are unremarkable. IMPRESSION: Negative Interpreted by : DOUGIE COBB MD Diagnosis and treatment plan were discussed and questions were answered to the patient's satisfaction. Pt acknowledged understanding of concepts and follow up plan. Specific signs and symptoms that would indicate the need for higher level of care were discussed in detail warranting prompt ER evaluation. Carly Schmidt APRN.MAYA documented in this encounter [facility] 07-28-2022 Instructions Kelsi Bermudez APRN.CNP - 07/28/2022 9:56 AM EDT Schedule with neurology. Have your labs drawn. Do not need to be fasting. Start the metoprolol daily for migraine prevention. Take the Maxalt for migraines right when you feel the migraine start to come on. You can take this again in 2 hours if you need to. Don't take the Maxalt more than two days weekly. Please let us know if you're requiring more than this, then we need to make some adjustments. documented in this encounter [facility] 07-28-2022 History of Presen t illness Narrative Chief Complaint Patient presents with: Headaches: X years, Has had 4 concussions in the past, worse sx after concussions, headaches 4/5 x a week, OTC NSAIDS not improving sx. ADELA Tejada is a 17 year old female who presents here today for Above Complaints.. Today: Has had 4 concussions in the past. Her most recent happened this past December during a basketball game. Since then the headaches/migraines have escalated. 4-5x weekly. If she sleeps, can usually improve. Always in the lower back of her head, worse on the right. Sensitivity to light, nausea and vomiting. Since having COVID a year or so ago, has noticed her hair falling out/thinning. Hair does not seem to want to grow. Has just recently started taking biotin. Past medical history, appointments, medications, allergies reviewed. Previous Medical History PAST MEDICAL HISTORY Diagnosis Date Calculus of kidney PMDD (premenstrual dysphoric disorder) 2018 Previous Surgical History PAST SURGICAL HISTORY Procedure Laterality Date PAST SURGICAL HISTORY OF removal of renal calculi via lithotrypsy PAST SURGICAL HISTORY OF 06/24/2014 PCP of right thumb UNLISTED PROCEDURE LACRIMAL SYSTEM 02/20 DR WHEELER Family History FAMILY HISTORY Problem Relation Age of Onset Hypertension Mother None Father other (FIBROMYALGIA) Paternal Grandmother Hypertension Maternal Grandfather Lipids Maternal Grandfather Hypertension Maternal Grandmother Patient Allergies ALLERGIES Allergen Reactions Codeine Tramadol Itching, Other: See Comments Dizziness Current Medications Current Outpatient Medications on File Prior to Visit Medication Sig sertraline (ZOLOFT) 100 mg tablet TAKE 1 AND 1/2 TABLETS DAILY BY MOUTH levonorgestrel (KYLEENA) 17.5 mcg/24 hrs (5 yrs) 19.5 mg IUD 1 Each by INTRAUTERINE route as directed. fluticasone (FLONASE) 50 mcg/actuation nasal spray USE 1 SPRAY IN EACH NOSTRIL ONCE DAILY. UP TO TWICE A DAY IF NEEDED. RINSE MOUTH AFTER USE. miSOPROStol (CYTOTEC) 200 mcg tablet Use 2 tablets vaginally as directed. The night before the procedure and the morning of the procedure. (Patient not taking: No sig reported) albuterol HFA (PROVENTIL HFA, VENTOLIN HFA) 90 mcg/actuation inhaler Inhale 2 Puffs as instructed every 4 hours as needed for wheezing/shortness of breath (tight cough). Dispense the brand approved by patient insurance (Patient not taking: Reported on 07/28/2022) No current facility-administered medications on file prior to visit. Social History Social History Tobacco Use Smoking status: Never Smokeless tobacco: Never Vaping Use Vaping Use: Never used Substance Use Topics Alcohol use: No Drug use: No Review of Symptoms REVIEW OF SYSTEMS See HPI, otherwise negative EXAM: BP 120/84 (BP Site: Left Arm, BP Position: Sitting, BP Cuff Size: Regular Adult) Pulse 94 Resp 16 Wt 67.1 kg (148 lb) LMP 10/19/2021 SpO2 97% General Appearance: Well appearing, alert, in no acute distress, well-hydrated, well nourished.. Neck: Supple, no adenopathy; thyroid symmetric, normal size, no bruits. Lungs: Lungs clear to auscultation. No wheezing, rhonchi, rales.. Heart: RRR without murmur, gallop, or rubs. No ectopy. Health Maintenance List ASTHMA ACTION PLAN Never done ASTHMA CONTROL TEST Never done PNEUMOCOCCAL(1 - PCV) due on 2009 MENINGOCOCCAL B: Consider based on risk(1 of 2 - Risk Bexsero 2-dose series) Never done SPIROMETRY Never done GC (GONORRHEA) SCREENING (18-24) Never done HEPATITIS C SCREENING Never done HIV SCREENING Never done CHLAMYDIA SCREENING (18-24) Never done INFLUENZA(1) due on 07/20/2022 COVID-19 VACCINE(1) due on 08/26/2022 DEPRESSION SCREENING due on 10/10/2022 ANNUAL PCP TEAM CHRONIC DISEASE VISIT due on 12/22/2022 DTAP,TDAP,TD(7 - Td or Tdap) due on 09/22/2025 HEPATITIS B Completed HPV VACCINE Completed MENINGOCOCCAL CONJUGATE Completed Data reviewed Previous records, office notes ASSESSMENT/PLAN: 1. Well adult exam - ICD9: V70.0, ICD10: Z00.00 (primary diagnosis) - Counseled on healthy diet and regular exercise - Calcium intake with supplements or by diet of 1000 mg/day for under 50, 1939-4428 mg/day for 50+ - Follow up for annual exam in one year - CBC - COMP METABOLIC PANEL - IRON + TIBC - FERRITIN BLD - TSH BLD - T3 BLD - T4 FREE/FREE THYROX - THYROID PEROXIDASE ANTIBODY BLOOD - THYROGLOBULIN AB - VITAMIN D 25 HYDROXY - VITAMIN B12 BLOOD 2. Migraine with aura, not intractable, without status migrainosus - ICD9: 346.00, ICD10: G43.109 Metoprolol preventative. Maxalt for abortive. Consult neurology r/t persistent, worsening migraines as well as multiple concussions. - INFLUENZA VACCINE QUADRIVALENT 6 MO - 64 YRS IM - CONSULT TO NEUROLOGY - METOPROLOL SUCCINATE ER 25 MG TABLET,EXTENDED RELEASE 24 HR - RIZATRIPTAN 5 MG DISINTEGRATING TABLET 3. H/O multiple concussions - ICD9: V15.52, ICD10: Z87.820 Metoprolol preventative. Maxalt for abortive. Consult neurology r/t persistent, worsening migraines as well as multiple concussions. - INFLUENZA VACCINE QUADRIVALENT 6 MO - 64 YRS IM - CONSULT TO NEUROLOGY - METOPROLOL SUCCINATE ER 25 MG TABLET,EXTENDED RELEASE 24 HR - RIZATRIPTAN 5 MG DISINTEGRATING TABLET 4. Hair loss - ICD9: 704.00, ICD10: L65.9 Continue biotin. R/o contributing causes. - CBC - COMP METABOLIC PANEL - IRON + TIBC - FERRITIN BLD - TSH BLD - T3 BLD - T4 FREE/FREE THYROX - THYROID PEROXIDASE ANTIBODY BLOOD - THYROGLOBULIN AB - VITAMIN D 25 HYDROXY - VITAMIN B12 BLOOD 5. Hair thinning - ICD9: 704.00, ICD10: L65.9 Continue biotin. R/o contributing causes. - CBC - COMP METABOLIC PANEL - IRON + TIBC - FERRITIN BLD - TSH BLD - T3 BLD - T4 FREE/FREE THYROX - THYROID PEROXIDASE ANTIBODY BLOOD - THYROGLOBULIN AB - VITAMIN D 25 HYDROXY - VITAMIN B12 BLOOD 6. [id number] condition - ICD9: 139.8, ICD10: U09.9 Continue biotin. R/o contributing causes. - CBC - COMP METABOLIC PANEL - IRON + TIBC - FERRITIN BLD - TSH BLD - T3 BLD - T4 FREE/FREE THYROX - THYROID PEROXIDASE ANTIBODY BLOOD - THYROGLOBULIN AB - VITAMIN D 25 HYDROXY - VITAMIN B12 BLOOD 7. Family history of thyroid disease - ICD9: V18.19, ICD10: Z83.49 Continue biotin. R/o contributing causes. - TSH BLD - T3 BLD - T4 FREE/FREE THYROX - THYROID PEROXIDASE ANTIBODY BLOOD - THYROGLOBULIN AB 8. Screening for thyroid disorder - ICD9: V77.0, ICD10: Z13.29 Continue biotin. R/o contributing causes. - TSH BLD - T3 BLD - T4 FREE/FREE THYROX - THYROID PEROXIDASE ANTIBODY BLOOD - THYROGLOBULIN AB 9. Encounter for immunization - ICD9: V03.89, ICD10: Z23 - INFLUENZA VACCINE QUADRIVALENT 6 MO - 64 YRS IM Kelsi Bermudez APRN.SENIOR ACCOUNT CLERK documented in this encounter [facility] 02-09-2022 Miscellaneous Notes CD READY FOR BASIC SCIENCES [facility] RAD[facility] Patient is requesting CT scan of sinus 12/27/2021. documented in this encounter [facility] Evaluation + Plan note No data available for this section [facility] Evaluation note Diagnosis Onset Date Right knee injury acute [facility] Work Phone: Evaluation note* Diagnosis Onset Date Resolution Status Acute pharyngitis, unspecified acute [facility] Work Phone: evaluation note* Diagnosis Onset Date Resolution Status Acute pharyngitis, unspecified acute Right shoulder strain acute Strain of right rotator cuff capsule acute [facility] Work Phone: Evaluation note* Diagnosis Well adult exam- Primary Routine general medical [facility] Migraine with aura, not intractable, without status migrainosus H/O multiple concussions Personal history of traumatic brain injury Hair loss Alopecia, unspecified Hair thinning Alopecia, unspecified [id number] condition Family history of thyroid disease Family history of other endocrine and metabolic diseases Screening for thyroid disorder Encounter for immunization Need for other specified prophylactic vaccination against single bacterial disease [facility] Diagnosis Left wrist pain- Primary Pain in joint, forearm [facility] Diagnosis H/O multiple concussions Personal history of traumatic brain injury Migraine with aura, not intractable, without status migrainosus [facility] Diagnosis H/O multiple concussions Personal history of traumatic brain injury Migraine with aura, not intractable, without status migrainosus [facility] H/O multiple concussions Personal history of traumatic brain injury Migraine with aura, not intractable, without status migrainosus [facility] Diagnosis Migraine with aura, not intractable, without status migrainosus- Primary Daily headache Headache H/O multiple concussions Personal history of traumatic brain injury Attention deficit disorder (ADD) in adult [facility] Diagnosis Menstrual irregularity- Primary Irregular menstrual cycle Dysmenorrhea [facility] Diagnosis Anxiety with depression- Primary [facility] Anxiety with depression [facility] Diagnosis Hearing difficulty of left ear [facility] Diagnosis Sensorineural hearing loss (SNHL) of left ear with unrestricted hearing of right ear- Primary [facility]* Diagnosis Palpitations- Primary Elevated blood pressure reading without diagnosis of hypertension Episodic lightheadedness Dizziness and giddiness [facility] Diagnosis Sensorineural hearing loss (SNHL) of left ear with unrestricted hearing of right ear- Primary [facility]* Diagnosis Tachycardia- Primary Tachycardia, unspecified Hypertension, essential Unspecified essential hypertension H/O multiple concussions Personal history of traumatic brain injury Migraine with aura, not intractable, without status migrainosus [facility] Diagnosis Anxiety with depression [facility] Diagnosis Pelvic pain in female- Primary Unspecified symptom associated with female genital organs Encounter for initial prescription of contraceptive pills General counseling for prescription of oral contraceptives [facility] Diagnosis H/O multiple concussions Personal history of traumatic brain injury Migraine with aura, not intractable, without status migrainosus [facility] Diagnosis Tachycardia- Primary Tachycardia, unspecified Abnormal tilt table test Other nonspecific abnormal result of function study of brain and central nervous system [facility] Diagnosis Urinary frequency- Primary Dysuria [facility] Diagnosis Urine frequency- Primary Urinary frequency Dysuria Left flank pain Abdominal pain, unspecified site Pelvic pain in female Unspecified symptom associated with female genital organs Encounter for IUD removal Encounter for removal of intrauterine contraceptive device [facility] Diagnosis Sore throat- Primary Acute pharyngitis Eustachian tube dysfunction, bilateral [facility]* Diagnosis Pelvic pain in female Unspecified symptom associated with female genital organs [facility] Diagnosis Irritant contact dermatitis due to cosmetics- Primary Dermatitis due to cosmetics Shaky Abnormal involuntary movements Lightheaded Dizziness and giddiness Hypertension, essential Unspecified essential hypertension Tachycardia Tachycardia, unspecified Palpitations OCTAVIO (generalized anxiety disorder) Generalized anxiety disorder Sinobronchitis Unspecified sinusitis (chronic) [facility] Diagnosis Shaky- Primary Abnormal involuntary movements Lightheaded Dizziness and giddiness OCTAVIO (generalized anxiety disorder) Generalized anxiety disorder Situational anxiety Other anxiety states [facility] Diagnosis H/O multiple concussions Personal history of traumatic brain injury Migraine with aura, not intractable, without status migrainosus Tachycardia Tachycardia, unspecified Hypertension, essential Unspecified essential hypertension Abnormal tilt table test Other nonspecific abnormal result of function study of brain and central nervous system Palpitations [facility] Diagnosis Shaky Abnormal involuntary movements Lightheaded Dizziness and giddiness OCTAVIO (generalized anxiety disorder) Generalized anxiety disorder Situational anxiety Other anxiety states [facility] Diagnosis Tachycardia Tachycardia, unspecified Abnormal tilt table test Other nonspecific abnormal result of function study of brain and central nervous system H/O multiple concussions Personal history of traumatic brain injury Migraine with aura, not intractable, without status migrainosus Hypertension, essential Unspecified essential hypertension Palpitations [facility] Acute pain of right shoulder [facility] Diagnosis History of migraine- Primary Personal history of other disorders of nervous system and sense organs Bacterial sinusitis Unspecified sinusitis (chronic) [facility]* Diagnosis Tachycardia- Primary Tachycardia, unspecified Syncope and collapse Hypertension, essential Unspecified essential hypertension Autonomic dysfunction Unspecified disorder of autonomic nervous system [facility]* Diagnosis Post concussive encephalopathy- Primary Postconcussion syndrome Intractable chronic migraine without aura and without status migrainosus Chronic migraine without aura, with intractable migraine, so stated, without mention of status migrainosus [facility]* Diagnosis Depression, unspecified depression type Stress Other psychological or physical stress, not elsewhere classified [facility]* Diagnosis Tachycardia- Primary Tachycardia, unspecified [facility] Tachycardia Tachycardia, unspecified Abnormal tilt table test Other nonspecific abnormal result of function study of brain and central nervous system H/O multiple concussions Personal history of traumatic brain injury Migraine with aura, not intractable, without status migrainosus Hypertension, essential Unspecified essential hypertension Palpitations [facility] Shaky Abnormal involuntary movements Lightheaded Dizziness and giddiness OCTAVIO (generalized anxiety disorder) Generalized anxiety disorder Situational anxiety Other anxiety states Depression, unspecified depression type Stress Other psychological or physical stress, not elsewhere classified [facility]* Diagnosis Strep throat- Primary Streptococcal sore throat Sore throat Acute pharyngitis [facility]* Diagnosis Strep throat- Primary Streptococcal sore throat [facility]* Diagnosis Tachycardia Tachycardia, unspecified [facility]* Diagnosis Migraine without aura and without status migrainosus, not intractable- Primary Migraine without aura, without mention of intractable migraine without mention of status migrainosus Intractable chronic migraine without aura and without status migrainosus Chronic migraine without aura, with intractable migraine, so stated, without mention of status migrainosus Chronic migraine without aura, intractable, without status migrainosus Cervicalgia [facility]* Diagnosis Cognitive communication deficit- Primary Post concussive encephalopathy Postconcussion syndrome [facility]* Diagnosis Irregular menstrual bleeding- Primary Irregular menstrual cycle Heavy menses due to IUD (HCC) (HCC) Other complications due to genitourinary device, implant, and graft Essential hypertension Unspecified essential hypertension Breakthrough bleeding on Depo-Provera [facility]* Diagnosis Depression, unspecified depression type Stress Other psychological or physical stress, not elsewhere classified [facility]* Diagnosis Acute suppurative otitis media of both ears without spontaneous rupture of tympanic membranes, recurrence not specified- Primary Acute cough [facility]* Diagnosis Sore throat- Primary Acute pharyngitis Acute cough Hypertension, essential Unspecified essential hypertension [facility]* Diagnosis Cognitive communication deficit- Primary Post concussive encephalopathy Postconcussion syndrome [facility]* Diagnosis Hypertension, essential- Primary Unspecified essential hypertension Palpitations Acute pain of right shoulder [facility]* Diagnosis Hypertension, essential- Primary Unspecified essential hypertension Palpitations Tachycardia Tachycardia, unspecified [facility]* Diagnosis Acute pain of right shoulder [facility] Diagnosis Instability of right shoulder joint- Primary Other joint derangement, not elsewhere classified, shoulder region [facility] Diagnosis Sensorineural hearing loss (SNHL) of left ear with unrestricted hearing of right ear [facility] Diagnosis Instability of right shoulder joint Other joint derangement, not elsewhere classified, shoulder region [facility]* Diagnosis Left wrist pain Pain in joint, forearm [facility]* Diagnosis Disorder of right rotator cuff- Primary Disorders of bursae and tendons in shoulder region, unspecified [facility] Diagnosis Rotator cuff disorder, right- Primary [facility]* Diagnosis Disorder of right rotator cuff- Primary Disorders of bursae and tendons in shoulder region, unspecified [facility]* Diagnosis Disorder of right rotator cuff- Primary Disorders of bursae and tendons in shoulder region, unspecified [facility]* Diagnosis Depression, unspecified depression type Stress Other psychological or physical stress, not elsewhere classified [facility]* Diagnosis Disorder of right rotator cuff- Primary Disorders of bursae and tendons in shoulder region, unspecified [facility]* Diagnosis Depression, unspecified depression type Stress Other psychological or physical stress, not elsewhere classified Hypertension, essential Unspecified essential hypertension Palpitations Tachycardia Tachycardia, unspecified [facility]* Diagnosis Abnormal uterine bleeding (AUB)- Primary [facility] Diagnosis Hypertension, essential- Primary Unspecified essential hypertension Palpitations Tachycardia Tachycardia, unspecified Insulin resistance Dysmetabolic Syndrome X Menorrhagia with irregular cycle Excessive or frequent menstruation Abnormal menstrual cycle Unspecified disorder of menstruation and other abnormal bleeding from female genital tract [facility] Diagnosis Disorder of right rotator cuff- Primary Disorders of bursae and tendons in shoulder region, unspecified [facility]* Diagnosis Abnormal uterine bleeding (AUB) [facility]* Diagnosis Insulin resistance- Primary Dysmetabolic Syndrome X Menorrhagia with irregular cycle Excessive or frequent menstruation Abnormal menstrual cycle Unspecified disorder of menstruation and other abnormal bleeding from female genital tract [facility]* Diagnosis Rotator cuff disorder, right- Primary [facility]* Diagnosis Insulin resistance- Primary Dysmetabolic Syndrome X control counseling General counseling for initiation of other contraceptive measures Breakthrough bleeding on control pills Metrorrhagia documented [facility] Diagnosis Superior glenoid labrum lesion of right shoulder, initial encounter- Primary [facility]* Diagnosis Hypertension, essential- Primary Unspecified essential hypertension Superior glenoid labrum lesion of right shoulder, initial encounter [facility]* Diagnosis Encounter for IUD insertion- Primary Encounter for insertion of intrauterine contraceptive device Screening for STDs (sexually transmitted diseases) Screening examination for venereal disease Superior glenoid labrum lesion of right shoulder, initial encounter [facility] Diagnosis Hypertension, essential- Primary Unspecified essential hypertension Resistant hypertension Pedal edema Edema Brain fog Malaise Other malaise and fatigue Fatigue, unspecified type Generalized weakness Other malaise and fatigue Lightheaded Dizziness and giddiness Exposure to influenza Contact with or exposure to other viral diseases Superior glenoid labrum lesion of right shoulder, initial encounter [facility] Diagnosis Superior glenoid labrum lesion of right shoulder, initial encounter [facility]* Diagnosis Sore throat- Primary Acute pharyngitis Sinobronchitis Unspecified sinusitis (chronic) documented [facility]* Diagnosis Hypertension, essential- Primary Unspecified essential hypertension Palpitations Tachycardia Tachycardia, unspecified Fatigue, unspecified type Sore throat Acute pharyngitis Tired Other malaise and fatigue Sensation of swollen throat Other symptoms involving head and neck Dizziness Dizziness and giddiness Screening for thyroid disorder [facility]* Diagnosis Hypertension, essential Unspecified essential hypertension Resistant hypertension Pedal edema Edema Brain fog Malaise Other malaise and fatigue Fatigue, unspecified type Generalized weakness Other malaise and fatigue Lightheaded Dizziness and giddiness Sore throat Acute pharyngitis Tired Other malaise and fatigue Sensation of swollen throat Other symptoms involving head and neck Screening for thyroid disorder [facility]* Diagnosis Chronic migraine without aura, intractable, without status migrainosus- Primary Palpitations Tachycardia Tachycardia, unspecified [facility]* Diagnosis Superior glenoid labrum lesion of right shoulder, initial encounter- Primary Palpitations Tachycardia Tachycardia, unspecified documented in this encounter [facility] note* Diagnosis Superior glenoid labrum lesion of right shoulder, initial encounter- Primary Palpitations Tachycardia Tachycardia, unspecified [facility] noteNo assessment information availableWThe Surgical [facility] Work Phone: Evaluation note* Diagnosis Encounter for gynecological examination (general) (routine) with abnormal findings- Primary Screening for cervical cancer Screening for malignant neoplasm of the cervix Encounter for screening for human papillomavirus (HPV) Special screening examination for human papillomavirus (HPV) Screen for STD (sexually transmitted disease) Screening examination for venereal disease IUD (intrauterine device) in place Presence of intrauterine contraceptive device Palpitations Tachycardia Tachycardia, unspecified Superior glenoid labrum lesion of right shoulder, initial encounter documented in this encounter [facility] note* Diagnosis Preop examination- Primary Preoperative examination, unspecified Superior glenoid labrum lesion of right shoulder, initial encounter Hypertension, essential Unspecified essential hypertension POTS (postural orthostatic tachycardia syndrome) Tachycardia, unspecified Exercise-induced asthma (HCC) Exercise induced bronchospasm Superior glenoid labrum lesion of right shoulder, initial encounter * Assessment & Plan Note - Sarah Garrett APRN.CNP - 03/30/2025 2:13 PM EDT Associated Problem(s): Exercise-induced asthma (HCC) Sports induced no longer playing sports. No Inhalers * Assessment & Plan Note - Sarah Garrett APRN.CNP - 03/30/2025 7:04 AM EDT Associated Problem(s): POTS (postural orthostatic tachycardia syndrome) Appt. With cardiology 04/01/25 Maria D for followup. Tilt Test Results 03/12/25 * FINAL IMPRESSIONS * - The test was stopped early at 30 out of 45 minutes of 70 degree tilt. - Systolic blood pressures remained stable from 129 mmHg at start to 130 mmHg at end of tilt. - Diastolic blood pressures remained stable from 78 mmHg at start to 85 mmHg at end of tilt. - Blood pressure upon return to supine position was 129/78 mmHg. - Heart rates increased from 81 bpm at start to 110 bpm at end of tilt. - Heart rate upon return to supine position was 77 bpm. - ECGs showed: NO asystole was seen. - Patient signs/symptoms included: HOT, LIGHTHEADEDNESS, SEE NOTE. - Overall: A postural increase in heart rate was seen that was borderline for accentuated postural tachycardia. * Assessment & Plan Note - Sarah Garrett APRN.CNP - 03/30/2025 6:58 AM EDT Associated Problem(s): Hypertension, essential Controlled with metoprolol take day of surgery Lisinopril hold morning of surgery * Assessment & Plan Note - Sarah Garrett APRN.CNP - 03/30/2025 6:57 AM EDT Associated Problem(s): Superior glenoid labrum lesion of right shoulder Surgery scheduled for April 03, 2025 * Assessment & Plan Note - Sarah Garrett APRN.CNP - 03/30/2025 6:56 AM EDT Associated Problem(s): Preop examination Patient has the following medical conditions which may affect savana-operative course addressed in assessment and plan today. [facility] Pre[facility] examination- Primary Preoperative examination, unspecified Superior glenoid labrum lesion of right shoulder, initial encounter Hypertension, essential Unspecified essential hypertension POTS (postural orthostatic tachycardia syndrome) Tachycardia, unspecified Exercise-induced asthma (HCC) Exercise induced bronchospasm Palpitations- Primary Syncope, unspecified syncope type Superior glenoid labrum lesion of right shoulder, initial encounter [facility] Diagnosis Preop examination- Primary Preoperative examination, unspecified Superior glenoid labrum lesion of right shoulder, initial encounter Hypertension, essential Unspecified essential hypertension POTS (postural orthostatic tachycardia syndrome) Tachycardia, unspecified Exercise-induced asthma (HCC) Exercise induced bronchospasm Postural orthostatic tachycardia syndrome (POTS)- Primary Superior glenoid labrum lesion of right shoulder, initial encounter [facility] Preop examination- Primary Preoperative examination, unspecified Superior glenoid labrum lesion of right shoulder, initial encounter Hypertension, essential Unspecified essential hypertension POTS (postural orthostatic tachycardia syndrome) Tachycardia, unspecified Exercise-induced asthma (HCC) Exercise induced bronchospasm Chronic right shoulder pain- Primary Pain in joint, shoulder region Weakness of right upper extremity Other musculoskeletal symptoms referable to limbs Decreased right shoulder range of motion Other symptoms referable to shoulder joint [facility] Diagnosis Preop examination- Primary Preoperative examination, unspecified Superior glenoid labrum lesion of right shoulder, initial encounter Hypertension, essential Unspecified essential hypertension POTS (postural orthostatic tachycardia syndrome) Tachycardia, unspecified Exercise-induced asthma (HCC) Exercise induced bronchospasm Status post labral repair of shoulder- Primary [facility] Diagnosis Preop examination- Primary Preoperative examination, unspecified Superior glenoid labrum lesion of right shoulder, initial encounter Hypertension, essential Unspecified essential hypertension POTS (postural orthostatic tachycardia syndrome) Tachycardia, unspecified Exercise-induced asthma (HCC) Exercise induced bronchospasm Brain fog- Primary Depression, unspecified depression type [facility] Diagnosis Preop examination- Primary Preoperative examination, unspecified Superior glenoid labrum lesion of right shoulder, initial encounter Hypertension, essential Unspecified essential hypertension POTS (postural orthostatic tachycardia syndrome) Tachycardia, unspecified Exercise-induced asthma (HCC) Exercise induced bronchospasm Chronic right shoulder pain- Primary Pain in joint, shoulder region Weakness of right upper extremity Other musculoskeletal symptoms referable to limbs Decreased right shoulder range of motion Other symptoms referable to shoulder joint [facility] Diagnosis Preop examination- Primary Preoperative examination, unspecified Superior glenoid labrum lesion of right shoulder, initial encounter Hypertension, essential Unspecified essential hypertension POTS (postural orthostatic tachycardia syndrome) Tachycardia, unspecified Exercise-induced asthma (HCC) Exercise induced bronchospasm Skin eruption- Primary Rash and other nonspecific skin eruption [facility] Diagnosis Preop examination- Primary Preoperative examination, unspecified Superior glenoid labrum lesion of right shoulder, initial encounter Hypertension, essential Unspecified essential hypertension POTS (postural orthostatic tachycardia syndrome) Tachycardia, unspecified Exercise-induced asthma (HCC) Exercise induced bronchospasm Chronic right shoulder pain- Primary Pain in joint, shoulder region Weakness of right upper extremity Other musculoskeletal symptoms referable to limbs Decreased right shoulder range of motion Other symptoms referable to shoulder joint [facility] Diagnosis Atypical squamous cell changes of undetermined significance (ASCUS) on cervical cytology with positive high risk human papilloma virus (HPV)- Primary Cervical high risk human papillomavirus (HPV) DNA test positive Preop examination- Primary Preoperative examination, unspecified Superior glenoid labrum lesion of right shoulder, initial encounter Hypertension, essential Unspecified essential hypertension POTS (postural orthostatic tachycardia syndrome) Tachycardia, unspecified Exercise-induced asthma (HCC) Exercise induced bronchospasm [facility] Diagnosis Preop examination- Primary Preoperative examination, unspecified Superior glenoid labrum lesion of right shoulder, initial encounter Hypertension, essential Unspecified essential hypertension POTS (postural orthostatic tachycardia syndrome) Tachycardia, unspecified Exercise-induced asthma (HCC) Exercise induced bronchospasm Acute non-recurrent sinusitis, unspecified location- Primary [facility] Diagnosis Preop examination- Primary Preoperative examination, unspecified Superior glenoid labrum lesion of right shoulder, initial encounter Hypertension, essential Unspecified essential hypertension POTS (postural orthostatic tachycardia syndrome) Tachycardia, unspecified Exercise-induced asthma (HCC) Exercise induced bronchospasm Status post labral repair of shoulder- Primary [facility] Diagnosis Preop examination- Primary Preoperative examination, unspecified Superior glenoid labrum lesion of right shoulder, initial encounter Hypertension, essential Unspecified essential hypertension POTS (postural orthostatic tachycardia syndrome) Tachycardia, unspecified Exercise-induced asthma (HCC) Exercise induced bronchospasm Depression, unspecified depression type- Primary OCTAVIO (generalized anxiety disorder) Generalized anxiety disorder Menstrual-related mood disorder Premenstrual tension syndromes Brain fog Urinary frequency Suprapubic abdominal pain Abdominal pain, other specified site Flank pain Abdominal pain, unspecified site Screening for depression Encounter for screening examination for other mental health and behavioral disorders Chronic migraine without aura, intractable, without status migrainosus- Primary documented in this encounter [facility] note* Diagnosis Preop examination- Primary Preoperative examination, unspecified Superior glenoid labrum lesion of right shoulder, initial encounter Hypertension, essential Unspecified essential hypertension POTS (postural orthostatic tachycardia syndrome) Tachycardia, unspecified Exercise-induced asthma (HCC) Exercise induced bronchospasm Chronic migraine without aura, intractable, without status migrainosus- Primary documented in this encounter [facility] note* Diagnosis Preop examination- Primary Preoperative examination, unspecified Superior glenoid labrum lesion of right shoulder, initial encounter Hypertension, essential Unspecified essential hypertension POTS (postural orthostatic tachycardia syndrome) Tachycardia, unspecified Exercise-induced asthma (HCC) Exercise induced bronchospasm examination or test, negative result- Primary DUB (dysfunctional uterine bleeding) Other disorder of menstruation and other abnormal bleeding from female genital tract IUD (intrauterine device) in place Presence of intrauterine contraceptive device * Assessment & Plan Note - Tina Power MD - 06/01/2025 2:13 PM EDTAssociated Problem(s): IUD (intrauterine device) in place Orders: PELVIC US WHI; Future documented in this encounter [facility] note* Diagnosis Preop examination- Primary Preoperative examination, unspecified Superior glenoid labrum lesion of right shoulder, initial encounter Hypertension, essential Unspecified essential hypertension POTS (postural orthostatic tachycardia syndrome) Tachycardia, unspecified Exercise-induced asthma (HCC) Exercise induced bronchospasm examination or test, negative result- Primary DUB (dysfunctional uterine bleeding) Other disorder of menstruation and other abnormal bleeding from female genital tract IUD (intrauterine device) in place Presence of intrauterine contraceptive device DUB (dysfunctional uterine bleeding) Other disorder of menstruation and other abnormal bleeding from female genital tract IUD (intrauterine device) in place Presence of intrauterine contraceptive device [facility] Diagnosis Preop examination- Primary Preoperative examination, unspecified Superior glenoid labrum lesion of right shoulder, initial encounter Hypertension, essential Unspecified essential hypertension POTS (postural orthostatic tachycardia syndrome) Tachycardia, unspecified Exercise-induced asthma (HCC) Exercise induced bronchospasm examination or test, negative result- Primary DUB (dysfunctional uterine bleeding) Other disorder of menstruation and other abnormal bleeding from female genital tract IUD (intrauterine device) in place Presence of intrauterine contraceptive device Chronic right shoulder pain- Primary Pain in joint, shoulder region Weakness of right upper extremity Other musculoskeletal symptoms referable to limbs Decreased right shoulder range of motion Other symptoms referable to shoulder joint [facility]* Diagnosis Preop examination- Primary Preoperative examination, unspecified Superior glenoid labrum lesion of right shoulder, initial encounter Hypertension, essential Unspecified essential hypertension POTS (postural orthostatic tachycardia syndrome) Tachycardia, unspecified Exercise-induced asthma (HCC) Exercise induced bronchospasm examination or test, negative result- Primary DUB (dysfunctional uterine bleeding) Other disorder of menstruation and other abnormal bleeding from female genital tract IUD (intrauterine device) in place Presence of intrauterine contraceptive device Hypertension, essential Unspecified essential hypertension [facility] Diagnosis Preop examination- Primary Preoperative examination, unspecified Superior glenoid labrum lesion of right shoulder, initial encounter Hypertension, essential Unspecified essential hypertension POTS (postural orthostatic tachycardia syndrome) Tachycardia, unspecified Exercise-induced asthma (HCC) Exercise induced bronchospasm examination or test, negative result- Primary DUB (dysfunctional uterine bleeding) Other disorder of menstruation and other abnormal bleeding from female genital tract IUD (intrauterine device) in place Presence of intrauterine contraceptive device Depression, unspecified depression type- Primary Stress Other psychological or physical stress, not elsewhere classified Attention deficit disorder (ADD) in adult Medication management contract agreement Hypertension, essential Unspecified essential hypertension OCTAVIO (generalized anxiety disorder) Generalized anxiety disorder [facility]* Diagnosis Preop examination- Primary Preoperative examination, unspecified Superior glenoid labrum lesion of right shoulder, initial encounter Hypertension, essential Unspecified essential hypertension POTS (postural orthostatic tachycardia syndrome) Tachycardia, unspecified Exercise-induced asthma (HCC) Exercise induced bronchospasm examination or test, negative result- Primary DUB (dysfunctional uterine bleeding) Other disorder of menstruation and other abnormal bleeding from female genital tract IUD (intrauterine device) in place Presence of intrauterine contraceptive device Chronic right shoulder pain- Primary Pain in joint, shoulder region Weakness of right upper extremity Other musculoskeletal symptoms referable to limbs Decreased right shoulder range of motion Other symptoms referable to shoulder joint [facility] Diagnosis Preop examination- Primary Preoperative examination, unspecified Superior glenoid labrum lesion of right shoulder, initial encounter Hypertension, essential Unspecified essential hypertension POTS (postural orthostatic tachycardia syndrome) Tachycardia, unspecified Exercise-induced asthma (HCC) Exercise induced bronchospasm examination or test, negative result- Primary DUB (dysfunctional uterine bleeding) Other disorder of menstruation and other abnormal bleeding from female genital tract IUD (intrauterine device) in place Presence of intrauterine contraceptive device Status post labral repair of shoulder- Primary documented in this encounter [facility] for referral (narrative)* Diagnostic Procedure Only (Urgent) - Closed Specialty Diagnoses / Procedures Referred By Jessi blevins Referred To Contact X[facility] IMAGING Diagnoses Left wrist pain Procedures XR WRIST INJURY 4V PA/LAT/OBL/SCAPH LEFT RADEX WRIST COMPLETE MINIMUM 3 VIEWS Caryl Schmidt APRN.CNP [address] [place] [address] [facility] Referral ID Status Reason Start Date Expiration Date V isits Requested Visits Authorized [id number] Closed Auto-Generate d Referral 08/19/2022 09/18/2023 1 1 [facility] for referral (narrative)* Outpatient Procedure (Routine) - Pending Review Specialty Diagnoses / Procedures Referred By Jessi blevins Referred To [facility] Diagnoses H/O multiple concussions Procedures EPIL EEG ROUTINE ELECTROENCEPHALOGRAM REC COMA/SLEEP ONLY Liv Knapp MD [address] [place] [address] [facility] [place] [address] [place] [address] Referral ID Status Reason Start Date Expiration Date Visits Requested Visits Authorized [id number] Pending Review Auto-Generat ed Referral 09/28/2023 1 1 [facility] for referral (narrative)* Outpatient Procedure (Routine) - Authorized Specialty Diagnoses / Procedures Referred By Contac t Referred To Contact [facility] Diagnoses Palpitations Elevated blood pressure reading without diagnosis of hypertension Procedures ECHO ECHO TTHRC R-T 2D W/WOM-MODE COMPL SPEC&COLR Kathy Perry APRN.SENIOR ACCOUNT CLERK [address] [place] [address] [facility] [address] [place] [id number] Referral ID Status Reason Start Date Expiration Date Visits Requested Visits Authorized [id number] Authorized Auto-Generat ed Referral 03/28/2023 05/12/2023 1 1 T [facility] for referral (narrative)* Outpatient Procedure (Routine) - Pending Review Specialty Diagnoses / Procedures Referred By Contac t Referred To Contact [facility] Diagnoses Pelvic pain in female Procedures REMOVE INTRAUTERINE DEVICE REMOVE INTRAUTERINE DEVICE Emely Handy, FARM MANAGER.SENIOR ACCOUNT CLERK [address] [place] [address] [address] Referral ID Status Reason Start Date Expiration Date Visits Requested Visits Authorized [id number] Pending Review Auto-Generat ed Referral 07/31/2023 07/30/2024 1 1 [facility] for referral (narrative)* Diagnostic Procedure Only (Routine) - Authorized Specialty Diagnoses / Procedures Referred By Contac t Referred To Contact [facility] Diagnoses Left flank pain Pelvic pain in female Procedures US FEMALE PELVIS TRANSVAG US TRANSVAGINAL Daisy Zarate FARM MANAGER.SENIOR ACCOUNT CLERK [address] [place] [address] [place] [address] Referral ID Status Reason Start Date Expiration Date Visits Requested Visits Authorized [id number] Authorized Auto-Generat ed Referral 10/13/2024 1 1 [facility] for referral (narrative)* Diagnostic Procedure Only (Routine) - Closed Specialty Diagnoses / Procedures Referred By Contac t Referred To Contact [facility] Diagnoses Pelvic pain in female Procedures US FEMALE PELVIS TRANSVAG US TRANSVAGINAL Emely Handy APRN.SENIOR ACCOUNT CLERK [address] [place] [address] [place] [address] Referral ID Status Reason Start Date Expiration Date V isits Requested Visits Authorized [id number] Closed Auto-Generate d Referral 04/27/2023 05/26/2024 1 1 [facility] for referral (narrative)* Diagnostic Procedure Only (Routine) - Closed Specialty Diagnoses / Procedures Referred By Contac t Referred To Contact XR IMAGING Diagnoses Acute pain of right shoulder Procedures XR SHOULDER GENERAL 3V OR MORE AP/TRUE AP/OTHER RIGHT RADEX SHOULDER COMPLETE MINIMUM 2 VIEWS Federico Monroy V, DO [address] [place] [address] [place] [address] Referral ID Status Reason Start Date Expiration Date V isits Requested Visits Authorized [id number] Closed Auto-Generate d Referral 12/28/2023 01/26/2025 1 1 [facility] for referral (narrative)* Diagnostic Procedure Only (Urgent) - Closed Specialty Diagnoses / Procedures Referred By Contac t Referred To Contact XR IMAGING Diagnoses Acute pain of right shoulder Procedures XR CLAVICLE 2V RIGHT RADEX CLAVICLE COMPLETE mEely Handy APRN.SENIOR ACCOUNT CLERK [address] [place] [address] [place] [address] Referral ID Status Reason Start Date Expiration Date V isits Requested Visits Authorized [id number] Closed Auto-Generate d Referral 12/15/2023 01/13/2025 1 1 [facility] for referral (narrative)* Diagnostic Procedure Only (Urgent) - Closed Specialty Diagnoses / Procedures Referred By Contac t Referred To Contact [facility] IMAG[facility] Diagnoses Left wrist pain Procedures XR WRIST INJURY 4V PA/LAT/OBL/SCAPH LEFT RADEX WRIST COMPLETE MINIMUM 3 VIEWS Caryl Schmidt APRN.SENIOR ACCOUNT CLERK [address] [place] [address] [place] [address] Referral ID Status Reason Start Date Expiration Date V isits Requested Visits Authorized [id number] Closed Auto-Generate d Referral 08/19/2022 09/18/2023 1 1 [facility] for referral (narrative)* Diagnostic Procedure Only (Routine) - Authorized Specialty Diagnoses / Procedures Referred By Contac t Referred To Contact [facility] Diagnoses Abnormal uterine bleeding (AUB) Procedures PELVIC US WHI US PELVIC NONOBSTETRIC REAL-TIME IMAGE COMPLETE Emely Handy APRN.SENIOR ACCOUNT CLERK [address] [place] [address] [facility] [address] [place] [address] Referral ID Status Reason Start Date Expiration Date Visits Requested Visits Authorized [id number] Authorized Auto-Generat ed Referral 11/20/2024 11/20/2025 1 1 [facility] for referral (narrative)* Outpatient Procedure (Routine) - Authorized Specialty Diagnoses / Procedures Referred By Contac t Referred To Contact [facility] Diagnoses control counseling Procedures INSERT INTRAUTERINE DEVICE INSERT INTRAUTERINE DEVICE Raya Taveras APRN.CNM [address] [place] [address] [address] Referral ID Status Reason Start Date Expiration Date Visits Requested Visits Authorized [id number] Authorized Auto-Generat ed Referral 12/17/2024 12/17/2025 1 1 [facility] Diagnostic Procedure Only (Routine) - Authorized Specialty Diagnoses / Procedures Referred By Jessi blevins Referred To Contact XR IMAGING Diagnoses Superior glenoid labrum lesion of right shoulder, initial encounter Procedures XR INJ ARTHROGRAM SHOULDER RIGHT INJECTION SHOULDER ARTHROGRAPHY/ CT/MRI ARTHG Neto Mcarthur MD [address] [place] [address] [place] [address] Referral ID Status Reason Start Date Expiration Date Visits Requested Visits Authorized [id number] Authorized Auto-Generat ed Referral 12/22/2024 01/21/2026 1 1 * MRI/CT (Routine) - Authorized Specialty Diagnoses / Procedures Referred By Jessi blevins Referred To Contact [facility] Diagnoses Superior glenoid labrum lesion of right shoulder, initial encounter Procedures MRI ARTHROGRAM SHOULDER RIGHT MRI ANY JT UPPER EXTREMITY W/CONTRAST MATRL Neto Mcarthur MD [address] [place] [address] [place] [address] Referral ID Status Reason Start Date Expiration Date Visits Requested Visits Authorized [id number] Authorized Auto-Generat ed Referral 11/19/2024 11/18/2025 1 1 * Diagnostic Procedure Only (Routine) - New Request Specialty Diagnoses / Procedures Referred By Jessi blevins Referred To Contact [facility] IMAGING Diagnoses Superior glenoid labrum lesion of right shoulder, initial encounter Procedures XR SHOULDER GENERAL 3V OR MORE AP/TRUE AP/OTHER RIGHT RADEX SHOULDER COMPLETE MINIMUM 2 VIEWS Neto Mcarthur MD [address] [place] [address] [place] [address] Referral ID Status Reason Start Date Expiration Date Visits Requested Visits Authorized [id number] New Request Auto-Generat ed Referral 12/22/2024 01/21/2026 1 1 [facility] for referral (narrative)No reason for referral information availableWThe [facility] Work Phone: Reason for visit Narrative* Diagnostic Procedure Only (Urgent) - Closed Specialty Diagnoses / Procedures Referred By Contac t Referred To Contact XR IMAGING Diagnoses Acute pain of right shoulder Procedures XR CLAVICLE 2V RIGHT RADEX CLAVICLE COMPLETE Emely Handy, FARM MANAGER.SENIOR ACCOUNT CLERK [address] [facility] [place] [address] [place] [address] Referral ID Status Reason Start Date Expiration Date V isits Requested Visits Authorized [id number] Closed Auto-Generate d Referral 12/15/2023 01/13/2025 1 1 [facility] for visit Narrative* Diagnostic Procedure Only (Urgent) - Closed Specialty Diagnoses / Procedures Referred By Contac t Referred To Contact XR IMAGING Diagnoses Finger injury, initial encounter Procedures XR DIGIT GENERAL 3V FRONTAL/LAT/OBL LEFT RADEX FINGR MINIMUM 2 VIEWS Kuldeep Tijerina FARM MANAGER.SENIOR ACCOUNT CLERK [address] [place] [address] [place] [address] Referral ID Status Reason Start Date Expiration Date V isits Requested Visits Authorized [id number] Closed Auto-Generate d Referral 05/28/2023 06/26/2024 1 1 [facility] for visit Narrative* Diagnostic Procedure Only (Urgent) - Closed Specialty Diagnoses / Procedures Referred By Contac t Referred To Contact XR IMAGING Diagnoses Left wrist pain Procedures XR WRIST INJURY 4V PA/LAT/OBL/SCAPH LEFT RADEX WRIST COMPLETE MINIMUM 3 VIEWS Caryl Schmidt, FARM MANAGER.SENIOR ACCOUNT CLERK [address] [place] [address] [place] [address] Referral ID Status Reason Start Date Expiration Date V isits Requested Visits Authorized [id number] Closed Auto-Generate d Referral 08/19/2022 09/18/2023 1 1 [facility] for visit Narrative* Diagnostic Procedure Only (Routine) - Closed Specialty Diagnoses / Procedures Referred By Contac t Referred To Contact [facility] Diagnoses Abnormal uterine bleeding (AUB) Procedures PELVIC US WHI US PELVIC NONOBSTETRIC REAL-TIME IMAGE COMPLETE Emely Handy APRN.SENIOR ACCOUNT CLERK [address] [place] [address] [facility] [address] [place] [address] Referral ID Status Reason Start Date Expiration Date V isits Requested Visits Authorized [id number] Closed Auto-Generate d Referral 11/20/2024 11/20/2025 1 1 [facility] for visit Narrative* Auth/Cert (Routine) Specialty Diagnoses / Procedures Referred By Jessi blevins Referred To Contact Diagnoses Superior glenoid labrum lesion of right shoulder, initial encounter Superior glenoid labrum lesion of right shoulder, initial encounter [S43.431A] Procedures INJECTION SHOULDER ARTHROGRAPHY/ CT/MRI ARTHG INJECTION SHOULDER ARTHROGRAPHY OR ENHANCED CT/MRI SHOULDER ARTHROGRAPHY [facility] INTERVENT[facility]AL RADIOLOGY [address] [place] [address] Referral ID Status Reason Start Date Expiration Date Visits Re quested Visits Authorized [id number] 1 1 [facility] for visit Narrative* MRI/CT (Routine) - Closed Specialty Diagnoses / Procedures Referred By Jessi blevins Referred To Contact [facility] Diagnoses Superior glenoid labrum lesion of right shoulder, initial encounter Procedures MRI ARTHROGRAM SHOULDER RIGHT MRI ANY JT UPPER EXTREMITY W/CONTRAST Neto Garcia MD [address] [address] Phone: tel: fax: [place] [address] Referral ID Status Reason Start Date Expiration Date V isits Requested Visits Authorized [id number] Closed Auto-Generate d Referral 11/19/2024 11/18/2025 1 1 [facility] for visit Narrative* Consult, Test, Treat (Routine) - Closed Specialty Diagnoses / Procedures Referred By Jessi blevins Referred To Contact [facility] Diagnoses Hypertension, essential Resistant hypertension Pedal edema Brain fog Malaise Fatigue, unspecified type Generalized weakness Lightheaded Procedures US KIDNEY/BLADDER US RETROPERITONEAL REAL TIME W/IMAGE COMPLETE Kelsi Bermudez APRN.SENIOR ACCOUNT CLERK [address] [place] [address] Phone: tel: fax: [place] [address] Referral ID Status Reason Start Date Expiration Date V isits Requested Visits Authorized [id number] Closed Auto-Generate d Referral 01/29/2025 11/18/2025 1 1 [facility] Diagnostic Procedure Only (Routine) - Closed Specialty Diagnoses / Procedures Referred By Jessi blevins Referred To Contact [facility] Diagnoses DUB (dysfunctional uterine bleeding) IUD (intrauterine device) in place Procedures PELVIC US WHI US PELVIC NONOBSTETRIC REAL-TIME IMAGE COMPLETE Tina Power MD [address] [place] [address] Phone: tel: fax: [facility] [address] [place] [address] Referral ID Status Reason Start Date Expiration Date V isits Requested Visits Authorized [id number] Closed Auto-Generate d Referral 06/01/2025 06/01/2026 1 1 [facility] Summary Purpose Family History No Family History Records Found Relationship Condition Age at Onset Recorded Date/T odilia mother Asthma Unknown Advance Directives No Advanced Directives Records Found Advance Directive Response Recorded Date/ Time Living Will No May 23, 2022 8 :53pm Power of Completions Manager No May 23, 2022 8:53pm Chief Complaint Chief Complaint Description Start Date right knee pain Preliminary chief co mplaint data, not yet signed by the author as of Assessments There may be information available, but it has not been provided by the sender. Review of System There may be information available, but it has not been provided by the sender. History of Present Illness There may be information available, but it has not been provided by the sender. Chief Complaint and Reason for Visit Chief Complaint RIGHT KNEE PAIN, INJ URY MRI follow up Reason for Visit Right knee injury Chief Complaint SORE THROAT Reason for Visit Acute pharyngitis, u nspecified Chief Complaint SORE THROAT R SHOULDER PAIN/INJURY R SHOULDER INJURY FALL Reason for Visit Acute pharyngitis, u nspecified Right shoulder strain Strain of right rotator cuff capsule Reason for Referral Specialty Diagnoses / Procedures Referred By Jessi blevins Referred To Contact Neurology Diagnoses H/O multiple concussions Migraine with aura, not intractable, without status migrainosus Procedures CONSULT TO NEUROLOGY OFFICE/OUTPATIENT [facility] 60-74 MINUTES Kelsi Bermudez APRN.SENIOR ACCOUNT CLERK [address] [place] [address] Referral ID Status Reason Start Date Expiration Date Visits Requested Visits Authorized [id number] Pending Review PCP Requested Referral 07/28/2022 07/28/2023 1 1 Specialty Diagnoses / Procedures Referred By Contac t Referred To Contact Diagnoses Attention deficit disorder (ADD) in adult H/O multiple concussions Migraine with aura, not intractable, without status migrainosus Daily headache Procedures CONSULT TO HEADACHE CLINIC OFFICE/OUTPATIENT [facility] 60-74 MINUTES Kelsi Bermudez, TEE.SENIOR ACCOUNT CLERK [address] [place] [address] Referral ID Status Reason Start Date Expiration Date Visits Requested Visits Authorized [id number] Pending Review PCP Requested Referral 10/09/2023 1 1 Specialty Diagnoses / Procedures Referred By Contac t Referred To Contact MR IMAGING Diagnoses Sensorineural hearing loss (SNHL) of left ear with unrestricted hearing of right ear Procedures MRI BRAIN WO/W IVCON MRI BRAIN BRAIN STEM W/O W/[place] [address] [place] [id number] Mr Imaging Referral ID Status Reason Start Date Expiration Date Visits Requested Visits Authorized [id number] Authorized Auto-Generat ed Referral 03/26/2023 04/24/2024 1 1 Specialty Diagnoses / Procedures Referred By Contac t Referred To Contact Cardiology Diagnoses Tachycardia Abnormal tilt table test Procedures CONSULT TO CARDIOLOGY OFFICE/OUTPATIENT [facility] 60-74 MINUTES Little Cheng APRN.SENIOR ACCOUNT CLERK [address] [place] [address] Referral ID Status Reason Start Date Expiration Date Visits Requested Visits Authorized [id number] Pending Review PCP Requested Referral 07/26/2023 07/25/2024 1 1 Specialty Diagnoses / Procedures Referred By Contac t Referred To Contact [facility] Diagnoses Post concussive encephalopathy Procedures CONSULT TO SPEECH THERAPY OFFICE/OUTPATIENT [facility] 60 MINUTES Shaila Hopkins MD [address] [place] [address] [facility] [place] [address] [place] [address] Referral ID Status Reason Start Date Expiration Date Visits Requested Visits Authorized [id number] Pending Review Auto-Generat ed Referral 02/25/2024 02/24/2025 1 1 Specialty Diagnoses / Procedures Referred By Contac t Referred To Contact Neurology Diagnoses Intractable chronic migraine without aura and without status migrainosus Procedures CONSULT TO NEUROLOGY OFFICE/OUTPATIENT [facility] MDM 60 MINUTES Shaila Hopkins MD [address] [place] [address] Referral ID Status Reason Start Date Expiration Date Visits Requested Visits Authorized [id number] Authorized PCP Requested Referral 02/25/2024 02/24/2025 1 1 Specialty Diagnoses / Procedures Referred By Contac t Referred To Contact MR IMAGING Diagnoses Instability of right shoulder joint Procedures MRI SHOULDER WO IVCON RIGHT MRI ANY JT UPPER EXTREMITY W/O CONTRAST MATRL Federico Monroy, V, DO [address] [place] [address] Mr Imaging [facility] Referral ID Status Reason Start Date Expiration Date Visits Requested Visits Authorized [id number] Pending Review Auto-Generat ed Referral 08/01/2024 08/31/2025 1 1 Specialty Diagnoses / Procedures Referred By Contac t Referred To Contact MR IMAGING Diagnoses Sensorineural hearing loss (SNHL) of left ear with unrestricted hearing of right ear Procedures MRI BRAIN WO/W IVCON MRI BRAIN BRAIN STEM W/O W/[place] [address] [place] [address] Mr Imaging [facility] Referral ID Status Reason Start Date Expiration Date V isits Requested Visits Authorized [id number] Closed Auto-Generate d Referral 03/26/2023 04/24/2024 1 1 Specialty Diagnoses / Procedures Referred By Contac t Referred To Contact [facility] Diagnoses Disorder of right rotator cuff Procedures CONSULT TO PHYSICAL THERAPY PHYSICAL THERAPY EVALUATION [facility] COMPLEX 45 MINS Federico Monroy V, DO [address] [place] [address] [facility] [place] [address] [place] [address] Referral ID Status Reason Start Date Expiration Date Visits Requested Visits Authorized [id number] Pending Review Auto-Generat ed Referral 08/15/2024 08/15/2025 1 1 Specialty Diagnoses / Procedures Referred By Contac t Referred To Contact Gynecology Diagnoses Insulin resistance Menorrhagia with irregular cycle Abnormal menstrual cycle Procedures CONSULT TO GYNECOLOGY OFFICE/OUTPATIENT [facility] MDM 60 MINUTES Kelsi Bermudez APRN.SENIOR ACCOUNT CLERK [address] [place] [address] Referral ID Status Reason Start Date Expiration Date Visits Requested Visits Authorized [id number] Authorized PCP Requested Referral Auto-Generate d Referral 12/04/2024 12/04/2025 1 1 Additional Source Comments INFORMATION SOURCE (unrecogn ized section and content) DATE CREATED AUTHOR 06/07/2018 [facility] DATE CREATED AUTHOR AUTHOR'S ORGANIZ ATION 05/01/2023 [facility]) DATE CREATED AUTHOR AUTHOR'S ORGANIZ ATION 02/28/2024 [facility] DATE CREATED AUTHOR AUTHOR'S ORGANIZ ATION 02/28/2025 [facility] DATE CREATED AUTHOR AUTHOR'S ORGANIZ ATION 07/04/2025 [facility] DATE CREATED AUTHOR AUTHOR'S ORGANIZ ATION 07/09/2025 [facility] Reason for Visit (unrecogniz ed section and content) Reason Comments Physical Therapy Specialty Diagnoses / Procedures Referred By Contac t Referred To Contact Physical Therapy / PHYSICAL THERAPY Diagnoses post op right shoulder Procedures NEW RS PT ORTH Neto Austin MD [address] [facility] [address] [place] [address] Phone: tel: fax: Luis Enrique Sears, PT [address] [place] [address] Phone: tel: fax: Referral ID Status Reason Start Date Expiration Date V isits Requested Visits Authorized [id number] Authorized 02/25/2025 11/18/2025 60 60 Reason Comments PT Progress Note Reason Comments PT Eval Specialty Diagnoses / Procedures Referred By Contac t Referred To Contact [facility] Diagnoses Disorder of right rotator cuff Procedures CONSULT TO PHYSICAL THERAPY PHYSICAL THERAPY EVALUATION [facility] 45 MINS Federico Monroy V, DO [address] [place] [address] [facility] [address] [address] Referral ID Status Reason Start Date Expiration Date Visits Requested Visits Authorized [id number] Authorized Auto-Generat ed Referral 11/19/2023 11/18/2024 60 60 Reason Comments Speech Progress Note Specialty Diagnoses / Procedures Referred By Contac t Referred To Contact [facility] Diagnoses Post concussive encephalopathy Procedures CONSULT TO SPEECH THERAPY OFFICE/OUTPATIENT [facility] 60 MINUTES Shaila Hopkins MD [address] [place] [address] [address] Referral ID Status Reason Start Date Expiration Date Visits Requested Visits Authorized [id number] Authorized Auto-Generat ed Referral 11/19/2023 11/18/2024 60 60 Reason For Visit Description Start Date New - 1st visit with practice Preliminary reason f or visit data, not yet signed by the author as of right knee pain Reason Comments disk request Reason Comments Headaches X years, Has had 4 c oncussions in the past, worse sx after concussions, headaches 4/5 x a week, OTC NSAIDS not improving sx. Reason Comments Wrist Pain L wrist pain after f all x3 days Reason Comments Refill Request Reason Comments Med Change Request Reason Comments Consult Concussions migraine Specialty Diagnoses / Procedures Referred By Contac t Referred To Contact Neurology Diagnoses H/O multiple concussions Migraine with aura, not intractable, without status migrainosus Procedures CONSULT TO NEUROLOGY OFFICE/OUTPATIENT [facility] MDM 60-74 MINUTES Kelsi Bermudez, TEE.SENIOR ACCOUNT CLERK [address] [place] [address] Referral ID Status Reason Start Date Expiration Date Visits Requested Visits Authorized [id number] Pending Review PCP Requested Referral 07/28/2022 07/28/2023 1 1 Reason Comments Recheck Patient is here for follow up from Neurology appointment/meds Reason Comments Discussion Irregular menses Reason Comments Medication Follow-up Discuss Zoloft & ad derall Reason Comments Hearing Problem left muffled Ringing In Ear(s) left, intermittent Specialty Diagnoses / Procedures Referred By Contac t Referred To Contact Ent - Otolaryngology Diagnoses Hearing difficulty of left ear Procedures CONSULT TO ENT OFFICE/OUTPATIENT [facility] 60-74 MINUTES Kelsi Bermudez, FARM MANAGER.SENIOR ACCOUNT CLERK [address] [place] [address] Referral ID Status Reason Start Date Expiration Date Visits Requested Visits Authorized [id number] Pending Review PCP Requested Referral 01/25/2023 01/25/2024 1 1 Reason Comments New Patient Ear Problem Left ear change in h earing Specialty Diagnoses / Procedures Referred By Contac t Referred To Contact Ent - Otolaryngology Diagnoses Hearing difficulty of left ear Procedures CONSULT TO ENT OFFICE/OUTPATIENT [facility] 60-74 MINUTES Kelsi Bermudez, FARM MANAGER.SENIOR ACCOUNT CLERK [address] [place] [address] Reason Comments ED Follow-up Iftikhar Epperson Reason Comments Follow Up Reason Comments Hypertension Reason Comments Question Reason Onset Date Comments Refill Request 07/16/2023 Reason Onset Date Comments Refill Request 07/24/2023 Reason Onset Date Comments Refill Request 08/09/2023 Reason Comments Results Reason Comments Urinary Frequency With burning, painfu l urination, L flank pain x3 weeks Reason Comments Results Reason Comments Pelvic Pain Reason Comments Ear Pain Right ear pain that started last night and ST and congestion x 2 days Reason Comments Radiology US Specialty Diagnoses / Procedures Referred By Jessi t Referred To Contact US IMAGING Diagnoses Pelvic pain in female Procedures US FEMALE PELVIS TRANSVAG US TRANSVAGINAL Emely Handy, FARM MANAGER.SENIOR ACCOUNT CLERK [address] [place] [address] [place] [address] Referral ID Status Reason Start Date Expiration Date V isits Requested Visits Authorized [id number] Closed Auto-Generate d Referral 04/27/2023 05/26/2024 1 1 Reason Comments Patient Question Reason Comments Follow Up Hypertension and tac hycardia, woke up with rash/hives on face. Reason Comments Patient Update Reason Onset Date Comments Refill Request 12/26/2023 Reason Comments right shoulder Right shoulder painR eferred by Brody Sauceda 12/15/2023 Specialty Diagnoses / Procedures Referred By Contac t Referred To Contact Orthopedics Diagnoses Acute pain of right shoulder Procedures CONSULT TO ORTHOPAEDICS OFFICE/OUTPATIENT [facility] 60 MINUTES Emely Handy APRN.SENIOR ACCOUNT CLERK [address] [place] [address] Referral ID Status Reason Start Date Expiration Date V isits Requested Visits Authorized [id number] Closed PCP Requested Referral 12/15/2023 12/14/2024 1 1 Reason Comments Appointment Reason Comments Nasal Congestion drainage, fatigue, c ough given tessalone Reason Comments New Patient Concussion/memory lo ss Reason Onset Date Comments Refill Request 02/26/2024 Reason Comments Ear Pain Bilateral ear pain, cough and congestion x 4-5 days Reason Comments ore throat, fatigue lft side abdoin hurts and lump nodes al Last week was in to urgent care treated for strep and took all meds Reason Onset Date Comments Refill Request 04/16/2024 Reason Comments Headache Migraine Specialty Diagnoses / Procedures Referred By Contac t Referred To Contact Neurology Diagnoses Intractable chronic migraine without aura and without status migrainosus Procedures CONSULT TO NEUROLOGY OFFICE/OUTPATIENT [facility] 60 MINUTES Shaila Hopkins MD [address] [place] [address] Referral ID Status Reason Start Date Expiration Date V isits Requested Visits Authorized [id number] Closed PCP Requested Referral 02/25/2024 02/24/2025 1 1 Reason Comments Speech Evaluation Speech Therapy Reason Comments Discussion Reason Onset Date Comments Refill Request 05/09/2024 Reason Onset Date Comments Refill Request 05/26/2024 Reason Comments Chest Congestion cough, burning in ch est x 4 days Reason Comments congestion, mil sore throat, left eye re d , nasal congestio Reason Comments Medication Problem Reason Comments Blood Pressure Check Reason Comments Orders Reason Comments 7 month post visit right shoulder pain Reason Comments Radiology MRI Specialty Diagnoses / Procedures Referred By Jessi blevins Referred To Contact MR IMAGING Diagnoses Sensorineural hearing loss (SNHL) of left ear with unrestricted hearing of right ear Procedures MRI BRAIN WO/W IVCON MRI BRAIN BRAIN STEM W/O W/[place] [address] [place] [id number] Mr Imaging [place] [address] Referral ID Status Reason Start Date Expiration Date V isits Requested Visits Authorized [id number] Closed Auto-Generate d Referral 03/26/2023 04/24/2024 1 1 Specialty Diagnoses / Procedures Referred By Jessi blevins Referred To Contact MR IMAGING Diagnoses Instability of right shoulder joint Procedures MRI SHOULDER WO IVCON RIGHT MRI ANY JT UPPER EXTREMITY W/O CONTRAST MATRL Federico Monroy V, DO [address] [place] [address] Mr Imaging [place] [address] Referral ID Status Reason Start Date Expiration Date Visits Requested Visits Authorized [id number] Pending Review Auto-Generat ed Referral 08/01/2024 08/31/2025 1 1 Reason Comments Results Appointment Reason Comments 4 week post visit right shoulder pain - wants injection Reason Onset Date Comments Refill Request 09/09/2024 Reason Comments Follow Up Hypertension and tac hycardia, bp more elevated last couple weeks, migraines Reason Comments BP Check Reason Comments PT Discharge Specialty Diagnoses / Procedures Referred By Jessi blevins Referred To Contact PHYSICAL THERAPY Diagnoses SHOULDER PAIN Procedures EST RS PT ORTH MSK Federico Monroy V, DO [address] [place] [address] [facility] [address] [place] [address] Referral ID Status Reason Start Date Expiration Date V isits Requested Visits Authorized [id number] Authorized 11/19/2024 11/18/2025 60 60 Reason Comments Appointment Reason Comments 14 weeks 5 days post visit right shoulde r rotator cuff disorder Reason Comments Discussion menses Specialty Diagnoses / Procedures Referred By Contac t Referred To Contact Gynecology Diagnoses Insulin resistance Menorrhagia with irregular cycle Abnormal menstrual cycle Procedures CONSULT TO GYNECOLOGY OFFICE/OUTPATIENT [facility] 60 MINUTES Kelsi Bermudez APRN.SENIOR ACCOUNT CLERK [address] [place] [address] Referral ID Status Reason Start Date Expiration Date V isits Requested Visits Authorized [id number] Closed PCP Requested Referral Auto-Generated Referral 12/04/2024 12/04/2025 1 1 Reason Comments New Pain Reason Comments Follow Up Hypertension Reason Onset Date Comments Insertion Of IUD 01/05/2025 Specialty Diagnoses / Procedures [facility] Contact [facility] Diagnoses control counseling Procedures INSERT INTRAUTERINE DEVICE INSERT INTRAUTERINE DEVICE Raya Taveras APRN.CN [address] [place] [address] Phone: tel: fax: [facility] [address] [place] [address] Referral ID Status Reason Start Date Expiration Date V isits Requested Visits Authorized [id number] Closed Auto-Generate d Referral 12/17/2024 12/17/2025 1 1 Reason Comments Consult Reason Comments Blood Pressure Reason Comments Sore Throat Headache, congestion , loss of appetite, body aches x 1 week Reason Comments Hypertension Specialty Diagnoses / Procedures Referred By Contac t Referred To Contact Family Medicine / FAMILY MEDICINE Diagnoses Hypertension, essential 2 week follow up bp Procedures OFFICE/OUTPATIENT ESTABLISHED MOD MDM 30 MIN 4C EST Self Kelsi Bermudez APRN.SENIOR ACCOUNT CLERK [address] [place] [address] Phone: tel: fax: Referral ID Status Reason Start Date Expiration Date Visits Re quested Visits Authorized [id number] Closed 01/29/2025 11/18/2025 1 1 Reason Comments Botox Injection Specialty Diagnoses / Procedures Referred By Contac t Referred To Contact HEADACHE Diagnoses Chronic migraine without aura, intractable, without status migrainosus Procedures BOTULINUM TOXIN A PER 1 UNIT CHEMODERVATE FACIAL/TRIGEM/CERV MUSC MIGRAINE NEW START DUE NOW Botox 200 units every 12 weeks for 1 year through [facility] fadi and bill [id number] Procedure -[id number] chemodervate facial/trigem/cerv musc migraine Marion Matute MD [address] [place] [address] Phone: tel: fax: Neurology [address] [facility] [place] [address] Phone: tel: fax: Referral ID Status Reason Start Date Expiration Date V isits Requested Visits Authorized [id number] Authorized 07/08/2024 07/08/2025 4 4 Reason Comments Established Patient Reason Comments Well Woman Reason Comments Follow Up Previously seen by Dallas Tovar. Pt reports ongoing issues with near syncope. Occurs mainly when she is exercising. Reason Comments BP Check Follow up cardio eliseo t today Reason Comments Post Op Reason Comments Follow Up Discuss decreasing m edication Reason Comments No Show Reason Comments Rash To neck and trunk wh ere right arm sling is, has been for 4-5 days Reason Comments Rash Specialty Diagnoses / Procedures Referred By Contac t Referred To Contact PHYSICAL THERAPY Diagnoses SHOULDER PAIN Procedures EST RS PT ORTH MSK Federico Monroy, V, DO [address] [place] [address] Phone: tel: fax: [facility] [address] [facility] [place] [address] Phone: tel: fax: Reason Comments Head Congestion SAMUEL, sinus congestion , chest congestion, ST x5 days Reason Comments Post Op Follow Up Reason Comments Physical Reason Comments Follow Up confirmati on Reason Onset Date Comments Refill Request 06/18/2025 Reason Comments Follow Up Medication change Reason Comments Post Op Follow Up Goals (unrecognized section and content) Goals may be documented in a n alternate sectionGoals may be documented in an alternate sectionGoals may be documented in an alternate section No data available for this sectionGoals may be documented in an alternate section Source Comments (unrecognize d section and content) In the event this informatio n is protected by the Federal Confidentiality of Alcohol and Drug Abuse Patient Records regulations: The Federal rules restrict any use of the information to criminally investigate or prosecute any alcohol or drug abuse patient.[facility] Center[facility] the event this information is protected by the Federal Confidentiality of Alcohol and Drug Abuse Patient Records regulations: The Federal rules restrict any use of the information to criminally investigate or prosecute any alcohol or drug abuse patient.[facility] CenterIn the event this information is protected by the Federal Confidentiality of Alcohol and Drug Abuse Patient Records regulations: The Federal rules restrict any use of the information to criminally investigate or prosecute any alcohol or drug abuse patient.[facility] CenterIn the event this information is protected by the Federal Confidentiality of Alcohol and Drug Abuse Patient Records regulations: The Federal rules restrict any use of the information to criminally investigate or prosecute any alcohol or drug abuse patient.[facility] Center[facility] the event this information is protected by the Federal Confidentiality of Alcohol and Drug Abuse Patient Records regulations: The Federal rules restrict any use of the information to criminally investigate or prosecute any alcohol or drug abuse patient.[facility] CenterIn the event this information is protected by the Federal Confidentiality of Alcohol and Drug Abuse Patient Records regulations: The Federal rules restrict any use of the information to criminally investigate or prosecute any alcohol or drug abuse patient.[facility] CenterIn the event this information is protected by the Federal Confidentiality of Alcohol and Drug Abuse Patient Records regulations: The Federal rules restrict any use of the information to criminally investigate or prosecute any alcohol or drug abuse patient.[facility] CenterIn the event this information is protected by the Federal Confidentiality of Alcohol and Drug Abuse Patient Records regulations: The Federal rules restrict any use of the information to criminally investigate or prosecute any alcohol or drug abuse patient.[facility] CenterIn the event this information is protected by the Federal Confidentiality of Alcohol and Drug Abuse Patient Records regulations: The Federal rules restrict any use of the information to criminally investigate or prosecute any alcohol or drug abuse patient.[facility] CenterIn the event this information is protected by the Federal Confidentiality of Alcohol and Drug Abuse Patient Records regulations: The Federal rules restrict any use of the information to criminally investigate or prosecute any alcohol or drug abuse patient.[facility] CenterIn the event this information is protected by the Federal Confidentiality of Alcohol and Drug Abuse Patient Records regulations: The Federal rules restrict any use of the information to criminally investigate or prosecute any alcohol or drug abuse patient.[facility] CenterIn the event this information is protected by the Federal Confidentiality of Alcohol and Drug Abuse Patient Records regulations: The Federal rules restrict any use of the information to criminally investigate or prosecute any alcohol or drug abuse patient.[facility] CenterIn the event this information is protected by the Federal Confidentiality of Alcohol and Drug Abuse Patient Records regulations: The Federal rules restrict any use of the information to criminally investigate or prosecute any alcohol or drug abuse patient.[facility] CenterIn the event this information is protected by the Federal Confidentiality of Alcohol and Drug Abuse Patient Records regulations: The Federal rules restrict any use of the information to criminally investigate or prosecute any alcohol or drug abuse patient.[facility] CenterIn the event this information is protected by the Federal Confidentiality of Alcohol and Drug Abuse Patient Records regulations: The Federal rules restrict any use of the information to criminally investigate or prosecute any alcohol or drug abuse patient.[facility] CenterIn the event this information is protected by the Federal Confidentiality of Alcohol and Drug Abuse Patient Records regulations: The Federal rules restrict any use of the information to criminally investigate or prosecute any alcohol or drug abuse patient.[facility] CenterIn the event this information is protected by the Federal Confidentiality of Alcohol and Drug Abuse Patient Records regulations: The Federal rules restrict any use of the information to criminally investigate or prosecute any alcohol or drug abuse patient.[facility] CenterIn the event this information is protected by the Federal Confidentiality of Alcohol and Drug Abuse Patient Records regulations: The Federal rules restrict any use of the information to criminally investigate or prosecute any alcohol or drug abuse patient.[facility] CenterIn the event this information is protected by the Federal Confidentiality of Alcohol and Drug Abuse Patient Records regulations: The Federal rules restrict any use of the information to criminally investigate or prosecute any alcohol or drug abuse patient.[facility] CenterIn the event this information is protected by the Federal Confidentiality of Alcohol and Drug Abuse Patient Records regulations: The Federal rules restrict any use of the information to criminally investigate or prosecute any alcohol or drug abuse patient.[facility] CenterIn the event this information is protected by the Federal Confidentiality of Alcohol and Drug Abuse Patient Records regulations: The Federal rules restrict any use of the information to criminally investigate or prosecute any alcohol or drug abuse patient.[facility] CenterIn the event this information is protected by the Federal Confidentiality of Alcohol and Drug Abuse Patient Records regulations: The Federal rules restrict any use of the information to criminally investigate or prosecute any alcohol or drug abuse patient.[facility] CenterIn the event this information is protected by the Federal Confidentiality of Alcohol and Drug Abuse Patient Records regulations: The Federal rules restrict any use of the information to criminally investigate or prosecute any alcohol or drug abuse patient.[facility] CenterIn the event this information is protected by the Federal Confidentiality of Alcohol and Drug Abuse Patient Records regulations: The Federal rules restrict any use of the information to criminally investigate or prosecute any alcohol or drug abuse patient.[facility] CenterIn the event this information is protected by the Federal Confidentiality of Alcohol and Drug Abuse Patient Records regulations: The Federal rules restrict any use of the information to criminally investigate or prosecute any alcohol or drug abuse patient.[facility] CenterIn the event this information is protected by the Federal Confidentiality of Alcohol and Drug Abuse Patient Records regulations: The Federal rules restrict any use of the information to criminally investigate or prosecute any alcohol or drug abuse patient.[facility] CenterIn the event this information is protected by the Federal Confidentiality of Alcohol and Drug Abuse Patient Records regulations: The Federal rules restrict any use of the information to criminally investigate or prosecute any alcohol or drug abuse patient.[facility] CenterIn the event this information is protected by the Federal Confidentiality of Alcohol and Drug Abuse Patient Records regulations: The Federal rules restrict any use of the information to criminally investigate or prosecute any alcohol or drug abuse patient.[facility] CenterIn the event this information is protected by the Federal Confidentiality of Alcohol and Drug Abuse Patient Records regulations: The Federal rules restrict any use of the information to criminally investigate or prosecute any alcohol or drug abuse patient.[facility] CenterIn the event this information is protected by the Federal Confidentiality of Alcohol and Drug Abuse Patient Records regulations: The Federal rules restrict any use of the information to criminally investigate or prosecute any alcohol or drug abuse patient.[facility] CenterIn the event this information is protected by the Federal Confidentiality of Alcohol and Drug Abuse Patient Records regulations: The Federal rules restrict any use of the information to criminally investigate or prosecute any alcohol or drug abuse patient.[facility] CenterIn the event this information is protected by the Federal Confidentiality of Alcohol and Drug Abuse Patient Records regulations: The Federal rules restrict any use of the information to criminally investigate or prosecute any alcohol or drug abuse patient.[facility] CenterIn the event this information is protected by the Federal Confidentiality of Alcohol and Drug Abuse Patient Records regulations: The Federal rules restrict any use of the information to criminally investigate or prosecute any alcohol or drug abuse patient.[facility] CenterIn the event this information is protected by the Federal Confidentiality of Alcohol and Drug Abuse Patient Records regulations: The Federal rules restrict any use of the information to criminally investigate or prosecute any alcohol or drug abuse patient.[facility] CenterIn the event this information is protected by the Federal Confidentiality of Alcohol and Drug Abuse Patient Records regulations: The Federal rules restrict any use of the information to criminally investigate or prosecute any alcohol or drug abuse patient.[facility] CenterIn the event this information is protected by the Federal Confidentiality of Alcohol and Drug Abuse Patient Records regulations: The Federal rules restrict any use of the information to criminally investigate or prosecute any alcohol or drug abuse patient.[facility] CenterIn the event this information is protected by the Federal Confidentiality of Alcohol and Drug Abuse Patient Records regulations: The Federal rules restrict any use of the information to criminally investigate or prosecute any alcohol or drug abuse patient.[facility] CenterIn the event this information is protected by the Federal Confidentiality of Alcohol and Drug Abuse Patient Records regulations: The Federal rules restrict any use of the information to criminally investigate or prosecute any alcohol or drug abuse patient.[facility] CenterIn the event this information is protected by the Federal Confidentiality of Alcohol and Drug Abuse Patient Records regulations: The Federal rules restrict any use of the information to criminally investigate or prosecute any alcohol or drug abuse patient.[facility] CenterIn the event this information is protected by the Federal Confidentiality of Alcohol and Drug Abuse Patient Records regulations: The Federal rules restrict any use of the information to criminally investigate or prosecute any alcohol or drug abuse patient.[facility] CenterIn the event this information is protected by the Federal Confidentiality of Alcohol and Drug Abuse Patient Records regulations: The Federal rules restrict any use of the information to criminally investigate or prosecute any alcohol or drug abuse patient.[facility] CenterIn the event this information is protected by the Federal Confidentiality of Alcohol and Drug Abuse Patient Records regulations: The Federal rules restrict any use of the information to criminally investigate or prosecute any alcohol or drug abuse patient.[facility] CenterIn the event this information is protected by the Federal Confidentiality of Alcohol and Drug Abuse Patient Records regulations: The Federal rules restrict any use of the information to criminally investigate or prosecute any alcohol or drug abuse patient.[facility] CenterIn the event this information is protected by the Federal Confidentiality of Alcohol and Drug Abuse Patient Records regulations: The Federal rules restrict any use of the information to criminally investigate or prosecute any alcohol or drug abuse patient.[facility] CenterIn the event this information is protected by the Federal Confidentiality of Alcohol and Drug Abuse Patient Records regulations: The Federal rules restrict any use of the information to criminally investigate or prosecute any alcohol or drug abuse patient.[facility] CenterIn the event this information is protected by the Federal Confidentiality of Alcohol and Drug Abuse Patient Records regulations: The Federal rules restrict any use of the information to criminally investigate or prosecute any alcohol or drug abuse patient.[facility] CenterIn the event this information is protected by the Federal Confidentiality of Alcohol and Drug Abuse Patient Records regulations: The Federal rules restrict any use of the information to criminally investigate or prosecute any alcohol or drug abuse patient.[facility] CenterIn the event this information is protected by the Federal Confidentiality of Alcohol and Drug Abuse Patient Records regulations: The Federal rules restrict any use of the information to criminally investigate or prosecute any alcohol or drug abuse patient.[facility] CenterIn the event this information is protected by the Federal Confidentiality of Alcohol and Drug Abuse Patient Records regulations: The Federal rules restrict any use of the information to criminally investigate or prosecute any alcohol or drug abuse patient.[facility] CenterIn the event this information is protected by the Federal Confidentiality of Alcohol and Drug Abuse Patient Records regulations: The Federal rules restrict any use of the information to criminally investigate or prosecute any alcohol or drug abuse patient.[facility] CenterIn the event this information is protected by the Federal Confidentiality of Alcohol and Drug Abuse Patient Records regulations: The Federal rules restrict any use of the information to criminally investigate or prosecute any alcohol or drug abuse patient.[facility] CenterIn the event this information is protected by the Federal Confidentiality of Alcohol and Drug Abuse Patient Records regulations: The Federal rules restrict any use of the information to criminally investigate or prosecute any alcohol or drug abuse patient.[facility]In the event this information is protected by the Federal Confidentiality of Alcohol and Drug Abuse Patient Records regulations: The Federal rules restrict any use of the information to criminally investigate or prosecute any alcohol or drug abuse patient.[facility]In the event this information is protected by the Federal Confidentiality of Alcohol and Drug Abuse Patient Records regulations: The Federal rules restrict any use of the information to criminally investigate or prosecute any alcohol or drug abuse patient.[facility]In the event this information is protected by the Federal Confidentiality of Alcohol and Drug Abuse Patient Records regulations: The Federal rules restrict any use of the information to criminally investigate or prosecute any alcohol or drug abuse patient.[facility]In the event this information is protected by the Federal Confidentiality of Alcohol and Drug Abuse Patient Records regulations: The Federal rules restrict any use of the information to criminally investigate or prosecute any alcohol or drug abuse patient.[facility]In the event this information is protected by the Federal Confidentiality of Alcohol and Drug Abuse Patient Records regulations: The Federal rules restrict any use of the information to criminally investigate or prosecute any alcohol or drug abuse patient.[facility]In the event this information is protected by the Federal Confidentiality of Alcohol and Drug Abuse Patient Records regulations: The Federal rules restrict any use of the information to criminally investigate or prosecute any alcohol or drug abuse patient.[facility]In the event this information is protected by the Federal Confidentiality of Alcohol and Drug Abuse Patient Records regulations: The Federal rules restrict any use of the information to criminally investigate or prosecute any alcohol or drug abuse patient.[facility]In the event this information is protected by the Federal Confidentiality of Alcohol and Drug Abuse Patient Records regulations: The Federal rules restrict any use of the information to criminally investigate or prosecute any alcohol or drug abuse patient.[facility]In the event this information is protected by the Federal Confidentiality of Alcohol and Drug Abuse Patient Records regulations: The Federal rules restrict any use of the information to criminally investigate or prosecute any alcohol or drug abuse patient.[facility]In the event this information is protected by the Federal Confidentiality of Alcohol and Drug Abuse Patient Records regulations: The Federal rules restrict any use of the information to criminally investigate or prosecute any alcohol or drug abuse patient.[facility]In the event this information is protected by the Federal Confidentiality of Alcohol and Drug Abuse Patient Records regulations: The Federal rules restrict any use of the information to criminally investigate or prosecute any alcohol or drug abuse patient.[facility]In the event this information is protected by the Federal Confidentiality of Alcohol and Drug Abuse Patient Records regulations: The Federal rules restrict any use of the information to criminally investigate or prosecute any alcohol or drug abuse patient.[facility]In the event this information is protected by the Federal Confidentiality of Alcohol and Drug Abuse Patient Records regulations: The Federal rules restrict any use of the information to criminally investigate or prosecute any alcohol or drug abuse patient.[facility]In the event this information is protected by the Federal Confidentiality of Alcohol and Drug Abuse Patient Records regulations: The Federal rules restrict any use of the information to criminally investigate or prosecute any alcohol or drug abuse patient.[facility]In the event this information is protected by the Federal Confidentiality of Alcohol and Drug Abuse Patient Records regulations: The Federal rules restrict any use of the information to criminally investigate or prosecute any alcohol or drug abuse patient.[facility]In the event this information is protected by the Federal Confidentiality of Alcohol and Drug Abuse Patient Records regulations: The Federal rules restrict any use of the information to criminally investigate or prosecute any alcohol or drug abuse patient.[facility]In the event this information is protected by the Federal Confidentiality of Alcohol and Drug Abuse Patient Records regulations: The Federal rules restrict any use of the information to criminally investigate or prosecute any alcohol or drug abuse patient.[facility]In the event this information is protected by the Federal Confidentiality of Alcohol and Drug Abuse Patient Records regulations: The Federal rules restrict any use of the information to criminally investigate or prosecute any alcohol or drug abuse patient.[facility]In the event this information is protected by the Federal Confidentiality of Alcohol and Drug Abuse Patient Records regulations: The Federal rules restrict any use of the information to criminally investigate or prosecute any alcohol or drug abuse patient.[facility]In the event this information is protected by the Federal Confidentiality of Alcohol and Drug Abuse Patient Records regulations: The Federal rules restrict any use of the information to criminally investigate or prosecute any alcohol or drug abuse patient.[facility]In the event this information is protected by the Federal Confidentiality of Alcohol and Drug Abuse Patient Records regulations: The Federal rules restrict any use of the information to criminally investigate or prosecute any alcohol or drug abuse patient.[facility]In the event this information is protected by the Federal Confidentiality of Alcohol and Drug Abuse Patient Records regulations: The Federal rules restrict any use of the information to criminally investigate or prosecute any alcohol or drug abuse patient.[facility]In the event this information is protected by the Federal Confidentiality of Alcohol and Drug Abuse Patient Records regulations: The Federal rules restrict any use of the information to criminally investigate or prosecute any alcohol or drug abuse patient.[facility]In the event this information is protected by the Federal Confidentiality of Alcohol and Drug Abuse Patient Records regulations: The Federal rules restrict any use of the information to criminally investigate or prosecute any alcohol or drug abuse patient.[facility]In the event this information is protected by the Federal Confidentiality of Alcohol and Drug Abuse Patient Records regulations: The Federal rules restrict any use of the information to criminally investigate or prosecute any alcohol or drug abuse patient.[facility]In the event this information is protected by the Federal Confidentiality of Alcohol and Drug Abuse Patient Records regulations: The Federal rules restrict any use of the information to criminally investigate or prosecute any alcohol or drug abuse patient.[facility]In the event this information is protected by the Federal Confidentiality of Alcohol and Drug Abuse Patient Records regulations: The Federal rules restrict any use of the information to criminally investigate or prosecute any alcohol or drug abuse patient.[facility]In the event this information is protected by the Federal Confidentiality of Alcohol and Drug Abuse Patient Records regulations: The Federal rules restrict any use of the information to criminally investigate or prosecute any alcohol or drug abuse patient.[facility]In the event this information is protected by the Federal Confidentiality of Alcohol and Drug Abuse Patient Records regulations: The Federal rules restrict any use of the information to criminally investigate or prosecute any alcohol or drug abuse patient.[facility]In the event this information is protected by the Federal Confidentiality of Alcohol and Drug Abuse Patient Records regulations: The Federal rules restrict any use of the information to criminally investigate or prosecute any alcohol or drug abuse patient.[facility]In the event this information is protected by the Federal Confidentiality of Alcohol and Drug Abuse Patient Records regulations: The Federal rules restrict any use of the information to criminally investigate or prosecute any alcohol or drug abuse patient.[facility]In the event this information is protected by the Federal Confidentiality of Alcohol and Drug Abuse Patient Records regulations: The Federal rules restrict any use of the information to criminally investigate or prosecute any alcohol or drug abuse patient.[facility]In the event this information is protected by the Federal Confidentiality of Alcohol and Drug Abuse Patient Records regulations: The Federal rules restrict any use of the information to criminally investigate or prosecute any alcohol or drug abuse patient.[facility]In the event this information is protected by the Federal Confidentiality of Alcohol and Drug Abuse Patient Records regulations: The Federal rules restrict any use of the information to criminally investigate or prosecute any alcohol or drug abuse patient.[facility]In the event this information is protected by the Federal Confidentiality of Alcohol and Drug Abuse Patient Records regulations: The Federal rules restrict any use of the information to criminally investigate or prosecute any alcohol or drug abuse patient.[facility]In the event this information is protected by the Federal Confidentiality of Alcohol and Drug Abuse Patient Records regulations: The Federal rules restrict any use of the information to criminally investigate or prosecute any alcohol or drug abuse patient.[facility]In the event this information is protected by the Federal Confidentiality of Alcohol and Drug Abuse Patient Records regulations: The Federal rules restrict any use of the information to criminally investigate or prosecute any alcohol or drug abuse patient.[facility]In the event this information is protected by the Federal Confidentiality of Alcohol and Drug Abuse Patient Records regulations: The Federal rules restrict any use of the information to criminally investigate or prosecute any alcohol or drug abuse patient.[facility]In the event this information is protected by the Federal Confidentiality of Alcohol and Drug Abuse Patient Records regulations: The Federal rules restrict any use of the information to criminally investigate or prosecute any alcohol or drug abuse patient.[facility]In the event this information is protected by the Federal Confidentiality of Alcohol and Drug Abuse Patient Records regulations: The Federal rules restrict any use of the information to criminally investigate or prosecute any alcohol or drug abuse patient.[facility]In the event this information is protected by the Federal Confidentiality of Alcohol and Drug Abuse Patient Records regulations: The Federal rules restrict any use of the information to criminally investigate or prosecute any alcohol or drug abuse patient.[facility]In the event this information is protected by the Federal Confidentiality of Alcohol and Drug Abuse Patient Records regulations: The Federal rules restrict any use of the information to criminally investigate or prosecute any alcohol or drug abuse patient.[facility]In the event this information is protected by the Federal Confidentiality of Alcohol and Drug Abuse Patient Records regulations: The Federal rules restrict any use of the information to criminally investigate or prosecute any alcohol or drug abuse patient.[facility]In the event this information is protected by the Federal Confidentiality of Alcohol and Drug Abuse Patient Records regulations: The Federal rules restrict any use of the information to criminally investigate or prosecute any alcohol or drug abuse patient.[facility]In the event this information is protected by the Federal Confidentiality of Alcohol and Drug Abuse Patient Records regulations: The Federal rules restrict any use of the information to criminally investigate or prosecute any alcohol or drug abuse patient.[facility]In the event this information is protected by the Federal Confidentiality of Alcohol and Drug Abuse Patient Records regulations: The Federal rules restrict any use of the information to criminally investigate or prosecute any alcohol or drug abuse patient.[facility]In the event this information is protected by the Federal Confidentiality of Alcohol and Drug Abuse Patient Records regulations: The Federal rules restrict any use of the information to criminally investigate or prosecute any alcohol or drug abuse patient.[facility]In the event this information is protected by the Federal Confidentiality of Alcohol and Drug Abuse Patient Records regulations: The Federal rules restrict any use of the information to criminally investigate or prosecute any alcohol or drug abuse patient.[facility]In the event this information is protected by the Federal Confidentiality of Alcohol and Drug Abuse Patient Records regulations: The Federal rules restrict any use of the information to criminally investigate or prosecute any alcohol or drug abuse patient.[facility]In the event this information is protected by the Federal Confidentiality of Alcohol and Drug Abuse Patient Records regulations: The Federal rules restrict any use of the information to criminally investigate or prosecute any alcohol or drug abuse patient.[facility]In the event this information is protected by the Federal Confidentiality of Alcohol and Drug Abuse Patient Records regulations: The Federal rules restrict any use of the information to criminally investigate or prosecute any alcohol or drug abuse patient.[facility] CenterIn the event this information is protected by the Federal Confidentiality of Alcohol and Drug Abuse Patient Records regulations: The Federal rules restrict any use of the information to criminally investigate or prosecute any alcohol or drug abuse patient.[facility] CenterIn the event this information is protected by the Federal Confidentiality of Alcohol and Drug Abuse Patient Records regulations: The Federal rules restrict any use of the information to criminally investigate or prosecute any alcohol or drug abuse patient.[facility] CenterIn the event this information is protected by the Federal Confidentiality of Alcohol and Drug Abuse Patient Records regulations: The Federal rules restrict any use of the information to criminally investigate or prosecute any alcohol or drug abuse patient.[facility] CenterIn the event this information is protected by the Federal Confidentiality of Alcohol and Drug Abuse Patient Records regulations: The Federal rules restrict any use of the information to criminally investigate or prosecute any alcohol or drug abuse patient.[facility] CenterIn the event this information is protected by the Federal Confidentiality of Alcohol and Drug Abuse Patient Records regulations: The Federal rules restrict any use of the information to criminally investigate or prosecute any alcohol or drug abuse patient.[facility] CenterIn the event this information is protected by the Federal Confidentiality of Alcohol and Drug Abuse Patient Records regulations: The Federal rules restrict any use of the information to criminally investigate or prosecute any alcohol or drug abuse patient.[facility] CenterIn the event this information is protected by the Federal Confidentiality of Alcohol and Drug Abuse Patient Records regulations: The Federal rules restrict any use of the information to criminally investigate or prosecute any alcohol or drug abuse patient.[facility] CenterIn the event this information is protected by the Federal Confidentiality of Alcohol and Drug Abuse Patient Records regulations: The Federal rules restrict any use of the information to criminally investigate or prosecute any alcohol or drug abuse patient.[facility] CenterIn the event this information is protected by the Federal Confidentiality of Alcohol and Drug Abuse Patient Records regulations: The Federal rules restrict any use of the information to criminally investigate or prosecute any alcohol or drug abuse patient.[facility] CenterIn the event this information is protected by the Federal Confidentiality of Alcohol and Drug Abuse Patient Records regulations: The Federal rules restrict any use of the information to criminally investigate or prosecute any alcohol or drug abuse patient.[facility] CenterIn the event this information is protected by the Federal Confidentiality of Alcohol and Drug Abuse Patient Records regulations: The Federal rules restrict any use of the information to criminally investigate or prosecute any alcohol or drug abuse patient.[facility] CenterIn the event this information is protected by the Federal Confidentiality of Alcohol and Drug Abuse Patient Records regulations: The Federal rules restrict any use of the information to criminally investigate or prosecute any alcohol or drug abuse patient.[facility] CenterIn the event this information is protected by the Federal Confidentiality of Alcohol and Drug Abuse Patient Records regulations: The Federal rules restrict any use of the information to criminally investigate or prosecute any alcohol or drug abuse patient.[facility] CenterIn the event this information is protected by the Federal Confidentiality of Alcohol and Drug Abuse Patient Records regulations: The Federal rules restrict any use of the information to criminally investigate or prosecute any alcohol or drug abuse patient.[facility] CenterIn the event this information is protected by the Federal Confidentiality of Alcohol and Drug Abuse Patient Records regulations: The Federal rules restrict any use of the information to criminally investigate or prosecute any alcohol or drug abuse patient.[facility] CenterIn the event this information is protected by the Federal Confidentiality of Alcohol and Drug Abuse Patient Records regulations: The Federal rules restrict any use of the information to criminally investigate or prosecute any alcohol or drug abuse patient.[facility] CenterIn the event this information is protected by the Federal Confidentiality of Alcohol and Drug Abuse Patient Records regulations: The Federal rules restrict any use of the information to criminally investigate or prosecute any alcohol or drug abuse patient.[facility] CenterIn the event this information is protected by the Federal Confidentiality of Alcohol and Drug Abuse Patient Records regulations: The Federal rules restrict any use of the information to criminally investigate or prosecute any alcohol or drug abuse patient.[facility] CenterIn the event this information is protected by the Federal Confidentiality of Alcohol and Drug Abuse Patient Records regulations: The Federal rules restrict any use of the information to criminally investigate or prosecute any alcohol or drug abuse patient.[facility] CenterIn the event this information is protected by the Federal Confidentiality of Alcohol and Drug Abuse Patient Records regulations: The Federal rules restrict any use of the information to criminally investigate or prosecute any alcohol or drug abuse patient.[facility] CenterIn the event this information is protected by the Federal Confidentiality of Alcohol and Drug Abuse Patient Records regulations: The Federal rules restrict any use of the information to criminally investigate or prosecute any alcohol or drug abuse patient.[facility] CenterIn the event this information is protected by the Federal Confidentiality of Alcohol and Drug Abuse Patient Records regulations: The Federal rules restrict any use of the information to criminally investigate or prosecute any alcohol or drug abuse patient.[facility] CenterIn the event this information is protected by the Federal Confidentiality of Alcohol and Drug Abuse Patient Records regulations: The Federal rules restrict any use of the information to criminally investigate or prosecute any alcohol or drug abuse patient.[facility] CenterIn the event this information is protected by the Federal Confidentiality of Alcohol and Drug Abuse Patient Records regulations: The Federal rules restrict any use of the information to criminally investigate or prosecute any alcohol or drug abuse patient.[facility] CenterIn the event this information is protected by the Federal Confidentiality of Alcohol and Drug Abuse Patient Records regulations: The Federal rules restrict any use of the information to criminally investigate or prosecute any alcohol or drug abuse patient.[facility] CenterIn the event this information is protected by the Federal Confidentiality of Alcohol and Drug Abuse Patient Records regulations: The Federal rules restrict any use of the information to criminally investigate or prosecute any alcohol or drug abuse patient.[facility] CenterIn the event this information is protected by the Federal Confidentiality of Alcohol and Drug Abuse Patient Records regulations: The Federal rules restrict any use of the information to criminally investigate or prosecute any alcohol or drug abuse patient.[facility] CenterIn the event this information is protected by the Federal Confidentiality of Alcohol and Drug Abuse Patient Records regulations: The Federal rules restrict any use of the information to criminally investigate or prosecute any alcohol or drug abuse patient.[facility] CenterIn the event this information is protected by the Federal Confidentiality of Alcohol and Drug Abuse Patient Records regulations: The Federal rules restrict any use of the information to criminally investigate or prosecute any alcohol or drug abuse patient.[facility] CenterIn the event this information is protected by the Federal Confidentiality of Alcohol and Drug Abuse Patient Records regulations: The Federal rules restrict any use of the information to criminally investigate or prosecute any alcohol or drug abuse patient.[facility] CenterIn the event this information is protected by the Federal Confidentiality of Alcohol and Drug Abuse Patient Records regulations: The Federal rules restrict any use of the information to criminally investigate or prosecute any alcohol or drug abuse patient.[facility] CenterIn the event this information is protected by the Federal Confidentiality of Alcohol and Drug Abuse Patient Records regulations: The Federal rules restrict any use of the information to criminally investigate or prosecute any alcohol or drug abuse patient.[facility] CenterIn the event this information is protected by the Federal Confidentiality of Alcohol and Drug Abuse Patient Records regulations: The Federal rules restrict any use of the information to criminally investigate or prosecute any alcohol or drug abuse patient.[facility] CenterIn the event this information is protected by the Federal Confidentiality of Alcohol and Drug Abuse Patient Records regulations: The Federal rules restrict any use of the information to criminally investigate or prosecute any alcohol or drug abuse patient.[facility] CenterIn the event this information is protected by the Federal Confidentiality of Alcohol and Drug Abuse Patient Records regulations: The Federal rules restrict any use of the information to criminally investigate or prosecute any alcohol or drug abuse patient.[facility] CenterIn the event this information is protected by the Federal Confidentiality of Alcohol and Drug Abuse Patient Records regulations: The Federal rules restrict any use of the information to criminally investigate or prosecute any alcohol or drug abuse patient.[facility] Care Teams (unrecognized sec tion and content) Orange Peel Operator Relationship Specialty Start Date End Date Celso Freire, DO [address] [facility] [place] [address] PCP - General Family Practice 10/10/21 Orange Peel Operator Relationship Specialty Start Date End Date Celso Freire, DO [address] [facility] [place] [address] PCP - General Family Practice 10/10/21 Orange Peel Operator Relationship Specialty Start Date End Date Celso Freire, DO [address] [place] [address] PCP - General Family Medicine 10/10/21 Orange Peel Operator Relationship Specialty Start Date End Date Celso Freire DO [address] [place] [address] PCP - General Family Medicine 10/10/21 Orange Peel Operator Relationship Specialty Start Date End Date Celso Freire, DO [address] [place] [address] PCP - General Family Medicine 10/10/21 Orange Peel Operator Relationship Specialty Start Date End Date Celso Freire, DO [address] [place] [address] PCP - General Family Medicine 10/10/21 Orange Peel Operator Relationship Specialty Start Date End Date Celso Freire, DO [address] [place] [address] PCP - General Family Medicine 10/10/21 Orange Peel Operator Relationship Specialty Start Date End Date Celso Freire, DO [address] [place] [address] PCP - General Family Medicine 10/10/21 Orange Peel Operator Relationship Specialty Start Date End Date Celso Freire, DO [address] [place] [address] PCP - General Family Medicine 10/10/21 Orange Peel Operator Relationship Specialty Start Date End Date Celso Freire, DO [address] [place] [address] PCP - General Family Medicine 10/10/21 Orange Peel Operator Relationship Specialty Start Date End Date Celso Freire, DO [address] [place] [address] PCP - General Family Medicine 10/10/21 Orange Peel Operator Relationship Specialty Start Date End Date Celso Freire, DO [address] [place] [address] PCP - General Family Medicine 10/10/21 Orange Peel Operator Relationship Specialty Start Date End Date Celso Freire, [address] [facility] [place] [address] PCP - General Family Medicine 10/10/21 Orange Peel Operator Relationship Specialty Start Date End Date Celso Freire, DO [address] [place] [address] PCP - General Family Medicine 10/10/21 Orange Peel Operator Relationship Specialty Start Date End Date Celso Freire, DO [address] [place] [address] PCP - General Family Medicine 10/10/21 Orange Peel Operator Relationship Specialty Start Date End Date Celso Freire DO [address] [place] [address] PCP - General Family Medicine 10/10/21 Orange Peel Operator Relationship Specialty Start Date End Date Celso Freire DO [address] [place] [address] PCP - General Family Medicine 10/10/21 Orange Peel Operator Relationship Specialty Start Date End Date Celso Freire DO [address] [place] [address] PCP - General Family Medicine 10/10/21 Orange Peel Operator Relationship Specialty Start Date End Date Celso Freire DO [address] [place] [address] PCP - General Family Medicine 10/10/21 Orange Peel Operator Relationship Specialty Start Date End Date Celso Freire DO [address] [place] [address] PCP - General Family Medicine 10/10/21 Orange Peel Operator Relationship Specialty Start Date End Date Celso Freire DO [address] [place] [address] PCP - General Family Medicine 10/10/21 Orange Peel Operator Relationship Specialty Start Date End Date Celso Freire DO [address] [place] [address] PCP - General Family Medicine 10/10/21 Orange Peel Operator Relationship Specialty Start Date End Date Celso Freire DO [address] [place] [address] PCP - General Family Medicine 10/10/21 Orange Peel Operator Relationship Specialty Start Date End Date Celso Freire DO [address] [place] [address] PCP - General Family Medicine 10/10/21 Orange Peel Operator Relationship Specialty Start Date End Date Celso Freire DO [address] [place] [address] PCP - General Family Medicine 10/10/21 Orange Peel Operator Relationship Specialty Start Date End Date Celso Freire DO [address] [place] [address] PCP - General Family Medicine 10/10/21 Orange Peel Operator Relationship Specialty Start Date End Date Celso Freire DO [address] [place] [address] PCP - General Family Medicine 10/10/21 Orange Peel Operator Relationship Specialty Start Date End Date Celso Freire DO [address] [place] [address] PCP - General Family Medicine 10/10/21 Orange Peel Operator Relationship Specialty Start Date End Date Celso Freire DO [address] [place] [address] PCP - General Family Medicine 10/10/21 Orange Peel Operator Relationship Specialty Start Date End Date Celso Freire DO [address] [place] [address] PCP - General Family Medicine 10/10/21 Orange Peel Operator Relationship Specialty Start Date End Date Celso Freire DO [address] [place] [address] PCP - General Family Medicine 10/10/21 Orange Peel Operator Relationship Specialty Start Date End Date Celso Freire DO [address] [place] [address] PCP - General Family Medicine 10/10/21 Orange Peel Operator Relationship Specialty Start Date End Date Celso Freire DO [address] [facility] [place] [address] PCP - General Family Medicine 10/10/21 Orange Peel Operator Relationship Specialty Start Date End Date Celso Freire DO [address] [facility] [place] [address] PCP - General Family Medicine 10/10/21 Orange Peel Operator Relationship Specialty Start Date End Date Celso Freire DO [address] [facility] [place] [address] PCP - General Family Medicine 10/10/21 Orange Peel Operator Relationship Specialty Start Date End Date Celso Freire DO [address] [place] [address] PCP - General Family Medicine 10/10/21 Orange Peel Operator Relationship Specialty Start Date End Date Celso Freire DO [address] [place] [address] PCP - General Family Medicine 10/10/21 Orange Peel Operator Relationship Specialty Start Date End Date Celso Freire DO [address] [place] [address] PCP - General Family Medicine 10/10/21 Orange Peel Operator Relationship Specialty Start Date End Date Celso Freire DO [address] [place] [address] PCP - General Family Medicine 10/10/21 Orange Peel Operator Relationship Specialty Start Date End Date Celso Freire DO [address] [place] [address] PCP - General Family Medicine 10/10/21 Orange Peel Operator Relationship Specialty Start Date End Date Celso Freire, DO [address] [place] [address] PCP - General Family Medicine 10/10/21 Orange Peel Operator Relationship Specialty Start Date End Date Celso Freire DO [address] [place] [address] PCP - General Family Medicine 10/10/21 Orange Peel Operator Relationship Specialty Start Date End Date Celso Freire, [address] [place] [address] PCP - General Family Medicine 10/10/21 Orange Peel Operator Relationship Specialty Start Date End Date Celso Freire DO [address] [place] [address] PCP - General Family Medicine 10/10/21 Orange Peel Operator Relationship Specialty Start Date End Date Celso Freire DO [address] [place] [address] PCP - General Family Medicine 10/10/21 Orange Peel Operator Relationship Specialty Start Date End Date Celso Freire DO [address] [place] [address] PCP - General Family Medicine 10/10/21 Orange Peel Operator Relationship Specialty Start Date End Date Celso Freire DO [address] [place] [address] PCP - General Family Medicine 10/10/21 Orange Peel Operator Relationship Specialty Start Date End Date Celso Freire DO [address] [place] [address] PCP - General Family Medicine 10/10/21 Orange Peel Operator Relationship Specialty Start Date End Date Celso Freire DO [address] [place] [address] PCP - General Family Medicine 10/10/21 Orange Peel Operator Relationship Specialty Start Date End Date Celso Freire DO [address] [place] [address] PCP - General Family Medicine 10/10/21 Orange Peel Operator Relationship Specialty Start Date End Date Celso Freire DO [address] [place] [address] PCP - General Family Medicine 10/10/21 Orange Peel Operator Relationship Specialty Start Date End Date Celso Freire DO [address] [place] [address] PCP - General Family Medicine 10/10/21 Orange Peel Operator Relationship Specialty Start Date End Date Celso Freire DO [address] [place] [address] PCP - General Family Medicine 10/10/21 Orange Peel Operator Relationship Specialty Start Date End Date Celso Freire DO [address] [place] [address] PCP - General Family Medicine 10/10/21 Orange Peel Operator Relationship Specialty Start Date End Date Celso Freire DO [address] [place] [address] PCP - General Family Medicine 10/10/21 Little Cheng APRN.SENIOR ACCOUNT CLERK [address] [place] [address] Mechanical Fitter Family Medicine 10/26/24 [facility] HospitalIsabellah, FARM MANAGER.SENIOR ACCOUNT CLERK [address] [facility] [place] [address] [facility] 10/26/24 Orange Peel Operator Relationship Specialty Start Date End Date Celso Freire DO [address] [facility] [place] [address] PCP - General Family Medicine 10/10/21 Little Cheng, FARM MANAGER.SENIOR ACCOUNT CLERK [address] [facility] [place] [address] [facility] 10/26/24 [facility] Hospital[facility]i, FARM MANAGER.SENIOR ACCOUNT CLERK [address] [place] [address] [facility] 10/26/24 Orange Peel Operator Relationship Specialty Start Date End Date Celso Freire DO [address] [facility] [place] [address] PCP - General Family Medicine 10/10/21 Little Cheng, FARM MANAGER.SENIOR ACCOUNT CLERK [address] [facility] [place] [address] [facility] 10/26/24 [facility], FARM MANAGER.SENIOR ACCOUNT CLERK [address] [place] [address] [facility] 10/26/24 Orange Peel Operator Relationship Specialty Start Date End Date Celso Freire DO [address] [facility] [place] [address] PCP - General Family Medicine 10/10/21 Little Cheng, FARM MANAGER.SENIOR ACCOUNT CLERK [address] [facility] [place] [address] Mechanical Fitter [facility] 10/26/24 Kelsi Bermudez, FARM MANAGER.SENIOR ACCOUNT CLERK [address] [facility] [place] [address] Mechanical Fitter [facility] 10/26/24 Orange Peel Operator Relationship Specialty Start Date End Date Celso Freire DO [address] [facility] [place] [address] PCP - General Family Medicine 10/10/21 Little hCeng, FARM MANAGER.SENIOR ACCOUNT CLERK [address] [place] [address] Mechanical Fitter [facility] 10/26/24 Kelsi Bermudez, FARM MANAGER.SENIOR ACCOUNT CLERK [address] [facility] [place] [address] [facility] 10/26/24 Orange Peel Operator Relationship Specialty Start Date End Date Celso Freire DO [address] [facility] [place] [address] PCP - General Family Medicine 10/10/21 Little Cheng, FARM MANAGER.SENIOR ACCOUNT CLERK [address] [place] [address] [facility] 10/26/24 Kelsi Bermudez, FARM MANAGER.SENIOR ACCOUNT CLERK [address] [place] [address] Mechanical Fitter [facility] 10/26/24 Orange Peel Operator Relationship Specialty Start Date End Date Celso Freire DO [address] [place] [address] PCP - General Family Medicine 10/10/21 Little Cheng, FARM MANAGER.SENIOR ACCOUNT CLERK [address] [place] [address] Mechanical Fitter Family [facility] 10/26/24 Kelsi Bermudez, FARM MANAGER.SENIOR ACCOUNT CLERK [address] [place] [address] Mechanical Fitter Family [facility] 10/26/24 Orange Peel Operator Relationship Specialty Start Date End Date Celso Freire DO [address] [place] [address] PCP - General Family Medicine 10/10/21 Little Cheng, FARM MANAGER.SENIOR ACCOUNT CLERK [address] [place] [address] Mechanical Fitter Family [facility] 10/26/24 Kelsi Bermudez, FARM MANAGER.SENIOR ACCOUNT CLERK [address] [place] [address] Mechanical Fitter [facility] 10/26/24 Orange Peel Operator Relationship Specialty Start Date End Date Celso Freire DO [address] [place] [address] PCP - General Family Medicine 10/10/21 Little Cheng, FARM MANAGER.SENIOR ACCOUNT CLERK [address] [place] [address] Mechanical Fitter Family [facility] 10/26/24 Kelsi Bermudez, FARM MANAGER.SENIOR ACCOUNT CLERK [address] [place] [address] Mechanical Fitter [facility] 10/26/24 Orange Peel Operator Relationship Specialty Start Date End Date Celso Freire DO [address] [place] [address] PCP - General Family Medicine 10/10/21 Little Cheng, FARM MANAGER.SENIOR ACCOUNT CLERK [address] [place] [address] Mechanical Fitter [facility] 10/26/24 LaraKelsi, FARM MANAGER.SENIOR ACCOUNT CLERK [address] [facility] [place] [address] [facility] 10/26/24 Orange Peel Operator Relationship Specialty Start Date End Date Celso Freire DO [address] [facility] [place] [address] PCP - General Family Medicine 10/10/21 Little Cheng, FARM MANAGER.SENIOR ACCOUNT CLERK [address] [place] [address] [facility] 10/26/24 LaraKelsi, FARM MANAGER.SENIOR ACCOUNT CLERK [address] [facility] [place] [address] [facility] 10/26/24 Orange Peel Operator Relationship Specialty Start Date End Date Celso Freire DO [address] [facility] [place] [address] PCP - General Family Medicine 10/10/21 Little Cheng, FARM MANAGER.SENIOR ACCOUNT CLERK [address] [facility] [place] [address] [facility] 10/26/24 [facility] Hospital[facility], FARM MANAGER.SENIOR ACCOUNT CLERK [address] [facility] [place] [address] [facility] 10/26/24 Orange Peel Operator Relationship Specialty Start Date End Date Celso Freire DO [address] [place] [address] PCP - General Family Medicine 10/10/21 Little Cheng, FARM MANAGER.SENIOR ACCOUNT CLERK [address] [facility] [place] [address] [facility] 10/26/24 [facility] HospitalKelsi, FARM MANAGER.SENIOR ACCOUNT CLERK [address] [place] [address] [facility] 10/26/24 Orange Peel Operator Relationship Specialty Start Date End Date Celso Freire DO [address] [place] [address] PCP - General Family Medicine 10/10/21 Little Cheng, FARM MANAGER.SENIOR ACCOUNT CLERK [address] [place] [address] [facility] 10/26/24 [facility], FARM MANAGER.SENIOR ACCOUNT CLERK [address] [place] [address] [facility] 10/26/24 Orange Peel Operator Relationship Specialty Start Date End Date Celso Freire DO [address] [place] [address] PCP - General Family Medicine 10/10/21 Little Cheng, FARM MANAGER.SENIOR ACCOUNT CLERK [address] [facility] [place] [address] Mechanical F[employer] [facility] 10/26/24 Kelsi Bermudez, FARM MANAGER.SENIOR ACCOUNT CLERK [address] [facility] [place] [address] Mechanical F[facility] 10/26/24 Orange Peel Operator Relationship Specialty Start Date End Date Celso Freire DO [address] [place] [address] PCP - General Family Medicine 10/10/21 Little Cheng, FARM MANAGER.SENIOR ACCOUNT CLERK [address] [place] [address] Mechanical Fitter [facility] 10/26/24 Kelsi Bermudez, FARM MANAGER.SENIOR ACCOUNT CLERK [address] [place] [address] [facility] 10/26[facility] Orange Peel Operator Relationship Specialty Start Date End Date Celso Freire DO [address] [place] [address] PCP - General Family Medicine 10/10/21 Little Cheng, FARM MANAGER.SENIOR ACCOUNT CLERK [address] [place] [address] [facility] 10/26/24 Kelsi Bermudez, FARM MANAGER.SENIOR ACCOUNT CLERK [address] [facility] [place] [address] Mechanical Fitter [facility] 10/26/24 Orange Peel Operator Relationship Specialty Start Date End Date Celso Freire DO [address] [facility] [place] [address] PCP - General Family Medicine 10/10/21 Little Cheng, TEE.SENIOR ACCOUNT CLERK [address] [place] [address] [facility] 10/26/24 Kelsi Bermudez, FARM MANAGER.SENIOR ACCOUNT CLERK [address] [place] [address] [facility] 10/26/24 Orange Peel Operator Relationship Specialty Start Date End Date Celso Freire DO [address] [place] [address] PCP - General Family Medicine 10/10/21 Little Cheng, FARM MANAGER.SENIOR ACCOUNT CLERK [address] [place] [address] [facility] 10/26/24 Kelsi Bermudez, FARM MANAGER.SENIOR ACCOUNT CLERK [address] [place] [address] Mechanical [facility] 10/26/24 Orange Peel Operator Relationship Specialty Start Date End Date Celso Freire DO [address] [place] [address] PCP - General Family Medicine 10/10/21 Kelsi Bermudez, FARM MANAGER.SENIOR ACCOUNT CLERK [address] [place] [address] Mechanical [facility] 10/26/24 Orange Peel Operator Relationship Specialty Start Date End Date Celso Freire DO [address] [place] [address] PCP - General Family Medicine 10/10/21 Kelsi Bermudez APRN.SENIOR ACCOUNT CLERK [address] [place] [place] [place] [address] [facility] 10[facility]/24 Team Status: Active Member Role Status Dates Dr. Celso Freire DO Primary Care Provider Active Team Status: Inactive Member Role Status Dates Dr. Celso Freire DO Primary Care Provider Active Start: February 24, 2025 End: February 24, 2025 Raya Taveras CNM Attending Provider Active St art: February 24, 2025 End: February 24, 2025 Raya Taveras CNM Referring Provider Active St art: February 24, 2025 End: February 24, 2025 Orange Peel Operator Relationship Specialty Start Date End Date Celso Freire DO [address] [place] [address] PCP - General Family Medicine 10/10/21 Kelsi Bermudez, FARM MANAGER.SENIOR ACCOUNT CLERK [address] [place] [address] [facility] 10/26/24 Orange Peel Operator Relationship Specialty Start Date End Date Celso Freire DO [address] [place] [place] [address] PCP - General Family Medicine 10/10/21 Little Cheng, FARM MANAGER.SENIOR ACCOUNT CLERK [address] [place] [place] [address] [facility] 10/26/24 02/06/25 Kelsi Bermudez, FARM MANAGER.SENIOR ACCOUNT CLERK [address] [place] [address] Mechanical [facility] 10/26/24 Orange Peel Operator Relationship Specialty Start Date End Date Celso Freire DO [address] [place] [address] PCP - General Family Medicine 10/10/21 Kelsi Bermudez, FARM MANAGER.SENIOR ACCOUNT CLERK [address] [place] [address] Mechanical [facility] 10/26/24 Orange Peel Operator Relationship Specialty Start Date End Date Celso Freire DO [address] [place] [address] PCP - General Family Medicine 10/10/21 Kelsi Bermudez, FARM MANAGER.SENIOR ACCOUNT CLERK [address] [place] [address] [facility] 10/26/24 Orange Peel Operator Relationship Specialty Start Date End Date Celso Freire DO [address] [place] [address] PCP - General Family Medicine 10/10/21 Little Cheng, FARM MANAGER.SENIOR ACCOUNT CLERK [address] [place] [address] Mechanical [facility] 10/26/24 02/06/25 Kelsi Bermudez, FARM MANAGER.SENIOR ACCOUNT CLERK [address] [place] [address] [facility] Medicine 10/26/24 Orange Peel Operator Relationship Specialty Start Date End Date Celso Freire DO [address] [place] [address] PCP - General Family Medicine 10/10/21 [facility] HospitalIsabellah, FARM MANAGER.SENIOR ACCOUNT CLERK [address] [facility] [place] [address] Mechanical Fitter [facility] 10/26/24 Orange Peel Operator Relationship Specialty Start Date End Date Celso Freire DO [address] [facility] [place] [address] PCP - General Family Medicine 10/10/21 [facility] Hospital[facility]i, FARM MANAGER.SENIOR ACCOUNT CLERK [address] [facility] [place] [address] Mechanical Fitter [facility] 10/26/24 Orange Peel Operator Relationship Specialty Start Date End Date Celso Freire DO [address] [place] [address] PCP - General Family Medicine 10/10/21 [facility], FARM MANAGER.SENIOR ACCOUNT CLERK [address] [facility] [place] [address] Mechanical Fitter [facility] 10/26/24 Orange Peel Operator Relationship Specialty Start Date End Date Celso Freire DO [address] [place] [address] PCP - General Family Medicine 10/10/21 [facility], FARM MANAGER.SENIOR ACCOUNT CLERK [address] [place] [address] Mechanical Fitter [facility] 10/26/24 Orange Peel Operator Relationship Specialty Start Date End Date Celso Freire DO [address] [place] [address] PCP - General Family Medicine 10/10/21 LaraKelsi lou, FARM MANAGER.SENIOR ACCOUNT CLERK [address] [place] [address] Mechanical [facility] 10/26/24 Orange Peel Operator Relationship Specialty Start Date End Date Celso Freire DO [address] [place] [address] PCP - General Family Medicine 10/10/21 Kelsi Bermudez, FARM MANAGER.SENIOR ACCOUNT CLERK [address] [place] [address] Mechanical Fitter [facility] 10/26/24 Orange Peel Operator Relationship Specialty Start Date End Date Celso Freire DO [address] [place] [address] PCP - General Family Medicine 10/10/21 Kelsi Bermudez, FARM MANAGER.SENIOR ACCOUNT CLERK [address] [place] [address] Mechanical [facility] 10/26/24 Annalisa Presley, FARM MANAGER.SENIOR ACCOUNT CLERK [address] [place] [address] Mechanical Fitter [facility] 05/04/25 Orange Peel Operator Relationship Specialty Start Date End Date Celso Freire DO [address] [place] [address] PCP - General Family Medicine 10/10/21 Kelsi Bermudez, FARM MANAGER.SENIOR ACCOUNT CLERK [address] [place] [address] Mechanical F[facility] 10/26/24 Annalisa Presley FARM MANAGER.SENIOR ACCOUNT CLERK [address] [place] [address] Mechanical [facility] 05/04/25 Orange Peel Operator Relationship Specialty Start Date End Date Celso Freire DO [address] [place] [address] PCP - General Family Medicine 10/10/21 Kelsi Bermudez, FARM MANAGER.SENIOR ACCOUNT CLERK [address] [place] [address] Mechanical [facility] 10/26/24 Annalisa Presley, FARM MANAGER.SENIOR ACCOUNT CLERK [address] [place] [address] Mechanical [facility] 05/04/25 Orange Peel Operator Relationship Specialty Start Date End Date Celso Freire DO [address] [place] [address] PCP - General Family Medicine 10/10/21 Kelsi Bermudez, FARM MANAGER.SENIOR ACCOUNT CLERK [address] [place] [address] Mechanical [facility] 10/26/24 Annalisa Presley, FARM MANAGER.SENIOR ACCOUNT CLERK [address] [place] [address] Mechanical [facility] 05/04/25 Orange Peel Operator Relationship Specialty Start Date End Date Celso Freire DO [address] [place] [address] PCP - General Family Medicine 10/10/21 Kelsi Bermudez, FARM MANAGER.SENIOR ACCOUNT CLERK [address] [place] [address] Mechanical [facility] 10/26/24 Annalisa Presley, FARM MANAGER.SENIOR ACCOUNT CLERK [address] [place] [address] Mechanical F[facility] 05/04/25 Orange Peel Operator Relationship Specialty Start Date End Date Celso Freire DO [address] [place] [address] PCP - General Family Medicine 10/10/21 Kelsi Bermudez, FARM MANAGER.SENIOR ACCOUNT CLERK [address] [place] [address] [facility] 10/26/24 Annalisa Presley, FARM MANAGER.SENIOR ACCOUNT CLERK [address] [place] [address] [facility] 05/04/25 Orange Peel Operator Relationship Specialty Start Date End Date Celso Freire DO [address] [place] [address] PCP - General Family Medicine 10/10/21 Kelsi Bermudez, FARM MANAGER.SENIOR ACCOUNT CLERK [address] [place] [address] Mechanical F[facility] 10/26/24 Annalisa Presley, FARM MANAGER.SENIOR ACCOUNT CLERK [address] [place] [address] Mechanical F[facility] 05/04/25 Orange Peel Operator Relationship Specialty Start Date End Date Celso Freire DO [address] [place] [address] PCP - General Family Medicine 10/10/21 LaraKelsi, FARM MANAGER.SENIOR ACCOUNT CLERK [address] [place] [address] Mechanical F[facility] 10/26/24 Annalisa Presley, FARM MANAGER.SENIOR ACCOUNT CLERK [address] [place] [address] [facility] 05/04/25 Orange Peel Operator Relationship Specialty Start Date End Date Celso Freire DO [address] [place] [address] PCP - General Family Medicine 10/10/21 LaraKelsi, FARM MANAGER.SENIOR ACCOUNT CLERK [address] [place] [address] [facility] 10/26/24 Annalisa Presley, FARM MANAGER.SENIOR ACCOUNT CLERK [address] [place] [address] [facility] 05/04/25 Orange Peel Operator Relationship Specialty Start Date End Date Celso Freire DO [address] [place] [address] PCP - General Family Medicine 10/10/21 [facility], FARM MANAGER.SENIOR ACCOUNT CLERK [address] [place] [address] [facility] 10/26/24 Annalisa Presley, FARM MANAGER.SENIOR ACCOUNT CLERK [address] [place] [address] [facility] 05/04/25 Orange Peel Operator Relationship Specialty Start Date End Date Celso Freire DO [address] [place], [place] [address] PCP - General Family Medicine 10/10/21 Kelsi Bermudez, TEE.SENIOR ACCOUNT CLERK [address] [place], [place] [address] Mechanical F[facility] 10/26/24 Annalisa Presley, FARM MANAGER.SENIOR ACCOUNT CLERK [address] [place], [place] [id number] Mechanical Fitter [facility] 05/04/25 Inactive Administered Medications - up to 3 most recent administrations Administered Medications (un recognized section and content) Medication Order MAR Action Action Date Dose Rate Site lidocaine (PF) 10 mg/mL (1 %) 4 mL injection (XYLOCAINE) 4 mL, Injection - FOR ORTHO USE ONLY, ONCE, 1 dose, Starting on Sun12/28/23 at 1117, Until Sun12/28/23 at 1117 Given 12/28/2023 11:17 AM EST 4 mL Shoulder, Right triamcinolone acetonide 40 mg injection (KeNALog 40) 40 mg, Injection - FOR ORTHO USE ONLY, ONCE, 1 dose, Starting on Sun12/28/23 at 1117, Until Sun12/28/23 at 1117 Given 12/28/2023 11:17 AM EST 40 mg Shoulder, Right FOR RECORDS PERTAINING TO PATIENTS WHO ARE OR HAVE BEEN ENROLLED IN A CHEMICAL DEPENDENCY/SUBSTANCEABUSE PROGRAM, SOME INFORMATION MAY BE OMITTED. This clinical summary was aggregated from multiple sources. Caution should be exercised in using it in the provision of clinical care. This summary normalizes information from multiple sources, and as a consequence, information in this document may materially change the coding, format and clinical context of patient data. In addition, data may be omitted in some cases. CLINICAL DECISIONS SHOULD BE BASED ON THE PRIMARY CLINICAL RECORDS. [employer] [facility]. provides no warranty or guarantee of the accuracy or completeness of information in this document.
[2025-07-09 23:53] VITALS: BP 132/79; PULSE 75; RESP 16; O2SAT 97
--- NOTE | 2025-07-09 23:59 | RAD_ITS ---
PROCEDURE: CHEST PA AND LATERAL 07/10/2025 REASON FOR EXAM: CHEST PAIN TECHNIQUE: CHEST PA AND LATERAL COMPARISON: None. FINDINGS: The lungs are expanded. There is no demonstrated parenchymal abnormality. There is no demonstrated pleural abnormality. Normal heart and pericardium. Normal mediastinum and tonja. Normal visualized pulmonary arteries. Normal visualized aortic arch and descending thoracic aorta. Normal visualized thoracic spine. Normal visualized ribs, clavicles, and shoulders. There is no demonstrated abnormality of the visualized soft tissue structures of the upper abdomen. RAD/Chest PA and Lateral IMPRESSION: No evidence for acute abnormality. Reading [facility]
[2025-07-10] VITALS: BP 132/79; PULSE 66; RESP 16; O2SAT 100
[2025-07-10 00:06] LABS: D-Dimer Quantitative (DVT/PE) < 0.27 FEU/ug/m (0.27-0.49)
[2025-07-10 00:07] LABS: Internal QC Validated? YES +Cl - CLEAR BKGD; Pregnancy, Serum, hCG Quali. NEGATIVE Negative; Record Kit Lot#, Serum Preg. 0000964736
[2025-07-10 00:13] LABS: Troponin T High Sensitivity < 6 ng/L (<=14)
[2025-07-10 00:21] LABS: Anion Gap 14 (5-15); BUN 7 mg/dL (4-19); BUN/Creat Ratio 8.9 RATIO (10-20); Calcium,Total 9.7 mg/dL (7.6-11.0); Carbon Dioxide 23.3 mmol/L (21.0-32.0); Chloride 103 mmol/L (98-108); Estimated Creatinine Clearance 104.74 ml/min (50-250); Glucose 113 mg/dL (70-99); Magnesium 2.1 mg/dL (1.5-2.2); Potassium 3.0 mmol/L (3.3-5.1)
[2025-07-10 00:53] VITALS: BP 143/98; PULSE 62; RESP 16; TEMP 37.1; O2SAT 99
== END 2025-07-10 00:59 | disposition home or self-care (01) ==
PROVIDERS: Emergency Provider Emergency Medicine; PCP Student in an Organized Health Care Education/Training Program; Visit Provider Emergency Medicine
DX: R07.9 Chest pain, unspecified (principal); R00.2 Palpitations; R00.0 Tachycardia, unspecified
CPT/HCPCS: 71046; 80048; 83735; 84443; 84484; 84703; 85025; 85379; 93005; 96361; 96374; 99283; A4216

== ENCOUNTER 2025-08-16 13:32 | Emergency (ER) | payer OTHER, SELFPAY ==
--- OUTSIDE RECORDS SUMMARY | 2025-08-14 08:27 | XMS RPT_ITS ---
Author Name Auto Generated Organization OHIP Care Team Providers Care Truck Dispatcher Name Role Phone CELSO FREIRE Primary Care Unavailable EMBER CR Attending Unavailable FREIRECELSO Primary Care Unavailable LITTLE CHENG Attending UnavailTAYLER Hendricks Attending Unavailable CELSO FREIRE Primary Care Unavailable FREIRE CELSO [place] Primary Care Unavailable HAYLEY LOZOYA Attending Unavailable TINA POWER Referring Unavailable FREIRECELSO Primary Care Unavailable RUTH MANNING Attending Unavailable CELSO FREIRE Primary Care Unavailable PATIENCE MATUTE Referring Unavailable JAZLYN BERMUDEZ Attending Unavailable FREIRE CELSO [place] Primary Care Unavailable FREIRE, CELSO [place] Primary Care Unavailable RAYA WHITMAN Attending Unavailable FREIRECELSO HERNANDEZ Primary Care Unavailable JAZLYN BERMUDEZ Attending Unavailable JAZLYN BERMUDEZ Attending Unavailable FREIRE, CELSO [place] Primary Care Unavailable RAYA AMBRIZ Attending Unavailable FEDERICO MONROY Referring Unavailable FREIRECELSO Primary Care Unavailable RAYA AMBRIZ Attending Unavailable FEDERICO MONROY Referring Unavailable FREIRECELSO Primary Care Unavailable BRIE CELSO [place] Primary Care Unavailable JAZLYN BERMUDEZ Attending Unavailable SELF Referring Unavailable FREIRE, CELSO [place] Primary Care Unavailable JAZLYN BERMUDEZ Referring Unavailable FREIRE CELSO [place] Primary Care Unavailable EMBER CR Attending Unavailable BRIE CELSO [place] Primary Care Unavailable EMBER CR Attending Unavailable FREIRE, CELSO [place] Primary Care Unavailable MARITZA BIRD Attending Unavailable SELF Referring Unavailable JAZLYN BERMUDEZ Attending Unavailable BRIE CELSO [place] Primary Care Unavailable FREIRE, CELSO [place] Primary Care Unavailable FEDERICO MONROY Attending Unavailable BRIE CELSO [place] Primary Care Unavailable JAZLYN BERMUDEZ Referring Unavailable RUTH MANNING Attending Unavailable PATIENCE MATUTE Referring Unavailable FREIRE, CELSO L Primary Care Unavailable TINA POWER Attending Unavailable FREIRE, CELSO L Primary Care Unavailable FREIRE, CELSO L Primary Care Unavailable Teresita'RAYA RUIZ Attending Unavailable FEDERICO MONROY Referring Unavailable O'RAYA RUIZ Attending Unavailable FEDERICO MONROY Referring Unavailable FREIRE, CELSO L Primary Care Unavailable Teresita'RAYA RUIZ Attending Unavailable FEDERICO MONROY Referring Unavailable FREIRE, CELSO L Primary Care Unavailable LARA, JAZLYN Referring Unavailable FREIRE, CELSO L Primary Care Unavailable RAYA WHITMAN Attending Unavailable LARA, JAZLYN Referring Unavailable FREIRE, CELSO L Primary Care Unavailable OSWALDO BUSTAMANTE Referring Unavailable FREIRE, CELSO L Primary Care Unavailable FREIRE, CELSO L Primary Care Unavailable FEDERICO MONROY Attending Unavailable JOSEFINA, FEDERICO Referring Unavailable FREIRE, CELSO L Primary Care Unavailable LARA, JAZLYN Referring Unavailable LARA, JAZLYN Referring Unavailable FREIRE, CELSO L Primary Care Unavailable FREIRE, CELSO L Primary Care Unavailable EMBER CR Attending Unavailable FREIRE, CELSO L Primary Care Unavailable FREIRE, CELSO L Primary Care Unavailable RAYA WHITMAN Attending Unavailable FREIRE, CELSO L Primary Care Unavailable KUSUM VACA Attending Unavailable KANTARAS, DAVIDSON T Referring Unavailable FREIRE, CELSO L Primary Care Unavailable KANTARAS, DAVIDSON T Attending Unavailable FREIRE, CELSO L Primary Care Unavailable KANTARAS, DAVIDSON T Attending Unavailable FREIRE, CELSO L Primary Care Unavailable SELF Referring Unavailable KANTARAS, DAVIDSON T Referring Unavailable FREIRE, CELSO L Primary Care Unavailable KANTARAS, DAVIDSON T Attending Unavailable FREIRE, CELSO L Primary Care Unavailable KANTARAS, DAVIDSON T Attending Unavailable FREIRE, CELSO L Primary Care Unavailable SELF Referring Unavailable SELF Referring Unavailable KANTARAS, DAVIDSON T Attending Unavailable FREIRE, CELSO L Primary Care Unavailable KANTARAS, DAVIDSON T Referring Unavailable FREIRE, CELSO L Primary Care Unavailable KANTARAS, DAVIDSON T Referring Unavailable FREIRE, CELSO L Primary Care Unavailable KANTARAS, DAVIDSON T Admitting Unavailable KANTARAS, DAVIDSON T Attending Unavailable FREIRE, CELSO L Primary Care Unavailable KANTARAS, DAVIDSON T Referring Unavailable FREIRE, CELSO L Primary Care Unavailable FEDERICO MONROY Referring Unavailable CELSO FREIRE Primary Care Unavailable DAVIDSON MCARTHUR Referring Unavailable CELSO FREIRE Primary Care Unavailable JALEEL KUO Admitting Unavailable JALEEL KUOROMIGUELITO Attending Unavailable JALEEL KUO Referring Unavailable CELSO FREIRE Primary Care Unavailable DAVIDSON MCARTHUR Referring Unavailable CELSO FREIRE Primary Care Unavailable ALICIA-TANJAEVELYNE ZULETA Admitting Unavailab le ALICIAEVELYNE LUONG Attending Unavailab le CELSO FREIRE Primary Care Unavailable RUPESH CALDERON Referring Unavailable PROBLEMS DATE TYPE CONDITION / CODE ATTENDING STATUS [facility] 08/14/2025 Active Essential (prima ry) hypertension / I10(ICD-10) MARITZA BIRD Active [facility] 07/31/2025 Active Head congestion / R09.81(ICD-10) EMBER CR Active [facility] 07/31/2025 Active Bacterial sinusi tis / J32.9(ICD-10) EMBER CR Active [facility] 07/31/2025 Active Bacterial sinusi tis / B96.89(ICD-10) EMBER CR Active [facility] 07/31/2025 Active Purulent nasal discharge / J34.89(ICD-10) EMBER CR Active [facility] 07/07/2025 Active Status post labr al repair of shoulder / Z98.890(ICD-10) DAVIDSON MCARTHUR Active [facility] 04/06/2025 Active Weakness of righ t upper extremity / R29.898(ICD-10) NA Active [facility] 04/06/2025 Active Decreased right shoulder range of motion / M25.611(ICD-10) NA Active [facility] 04/06/2025 Active Chronic right sh oulder pain / M25.511(ICD-10) NA Active [facility] 04/06/2025 Active Chronic right sh oulder pain / G89.29(ICD-10) NA Active [facility] 02/21/2024 Active Hypertension, essential / I10(ICD-10) EMBER CR Active [facility] 07/03/2025 Active Depression, unspecified depression type / F32.A(ICD-10) EMBER CR Active [facility] 07/03/2025 Active Stress / F43.9(ICD-10) EMBER CR Active [facility] 07/03/2025 Active Attention defici t disorder (ADD) in adult / F98.8(ICD-10) EMBER CR Active [facility] 07/03/2025 Active Medication manag ement contract agreement / Z02.89(ICD-10) EMBER CR Active [facility] 07/03/2025 Active OCTAVIO (generalized anxiety disorder) / F41.1(ICD-10) EMBER CR Active [facility] 03/03/2025 Active IUD (intrauterin e device) in place / Z97.5(ICD-10) NA Active [facility] 06/11/2025 Active DUB (dysfunction al uterine bleeding) / N93.8(ICD-10) NA Active [facility] 06/01/2025 Active examin ation or test, negative result / Z32.02(ICD-10) TINA POWER Active [facility] 05/27/2025 Active Menstrual-relate d mood disorder / F06.30(ICD-10) EMBER CR Active [facility] 05/27/2025 Active Urinary frequenc y / R35.0(ICD-10) EMBER CR Active [facility] 05/27/2025 Active Suprapubic abdom inal pain / R10.2(ICD-10) EMBER CR Active [facility] 05/27/2025 Active Flank pain / R10.9(ICD-10) EMBER CR Active [facility] 05/27/2025 Active Screening for depression / Z13.31(ICD-10) EMBER CR Active [facility] 05/27/2025 Active Encounter for screening examination for other mental health and behavioral disorders / Z13.39(ICD-10) EMBER CR Active [facility] 05/15/2025 Active Acute non-recurr ent sinusitis, unspecified location / J01.90(ICD-10) HAYLEY LOZOYA Active [facility] 04/21/2025 Active Skin eruption / R21(ICD-10) PODLOGTAYLER HARRIS Active [facility] 04/16/2025 Active Follow Up / UNK(Unknown) LITTLE CHENG Active [facility] 03/23/2025 Active Superior glenoid labrum lesion of right shoulder, subsequent encounter / S43.431D(ICD-10) DAVIDSON MCARTHUR [facility] 04/01/2025 Active Postural orthost atic tachycardia syndrome (POTS) / G90.A(ICD-10) EMBER CR Active [facility] 03/23/2025 Active POTS (postural orthostatic tachycardia syndrome) / G90.A(ICD-10) NA [facility] 03/23/2025 Active Superior glenoid labrum lesion of right shoulder, initial encounter / S43.431A(ICD-10) [facility] 03/23/2025 Active Preop examinatio n / Z01.818(ICD-10) [facility] 10/10/2021 Active Exercise-induced asthma (HCC) / J45.990(ICD-10) [facility] 02/13/2025 Active Chronic migraine without aura, intractable, without status migrainosus / G43.719(ICD-10) RUTH MANNING Active [facility] 01/29/2025 Active Malaise / R53.81(ICD-10) Active [facility] 01/29/2025 Active Resistant hypert ension / I1A.0(ICD-10) [facility] 01/29/2025 Active Pedal edema / R60.0(ICD-10) Active [facility] 01/29/2025 Active Brain fog / R41.89(ICD-10) [facility] 01/29/2025 Active Generalized weak ness / R53.1(ICD-10) NA Active [facility] 01/29/2025 Active Lightheaded / R42(ICD-10) NA Active [facility] 12/07/2023 Active Sore throat / J02.9(ICD-10) NA Active [facility] 01/29/2025 Active Fatigue, unspeci fied type / R53.83(ICD-10) NA Active [facility] 01/29/2025 Active Tired / R53.83(ICD-10) NA Active [facility] 01/29/2025 Active Sensation of swo llen throat / R68.89(ICD-10) NA Active [facility] 12/17/2024 Active Insulin resistan ce / E88.819(ICD-10) RAYA WHITMAN Active [facility] 12/17/2024 Active Menorrhagia with irregular cycle / N92.1(ICD-10) RAYA WHITMAN Active [facility] 12/17/2024 Active Abnormal menstru al cycle / N92.6(ICD-10) RAYA WHITMAN Active [facility] 12/02/2024 Active Abnormal uterine bleeding (AUB) / N93.9(ICD-10) Active [facility] 10/21/2024 Active Palpitations / R00.2(ICD-10) JAZLYN BERMUDEZ Active [facility] 10/21/2024 Active Tachycardia / R00.0(ICD-10) JAZLYN BERMUDEZ Active [facility] 09/02/2024 Active Disorder of righ t rotator cuff / M67.911(ICD-10) RAYA AMBRIZ Active [facility] PROCEDURES No Procedure Records Found RESULTS PROGRESS Observed: 08/14/2025 8:43 AM Status: COMPLETED Source: [facility] HNO ID: [id number] Author: MARITZA BIRD APRN.MAYA Service: ? Author Type: Nurse Practitioner Type: Progress Notes Filed: 08/14/2025 13:36 Note Text: [facility] [place] Adelina Sullivan Department of Cardiovascular Medicine SECTION OF CLINICAL CARDIOLOGY OUTPATIENT VISIT DATE August 14, 2025 OUTPATIENT VISIT TYPE ESTABLISHED PRIMARY CARE PHYSICIAN: Celso Freire [address] [place] [address] REFERRING PHYSICIAN: SELF CHIEF COMPLAINT: Follow Up HISTORY OF PRESENT ILLNESS: Miss Tejada is a 20 year old female with PMH syncope, POTS, palpitations,. who presents today for a cardiovascular medicine follow-up visit after she saw Dr Vaca in March. . The patient is a 20-year-old female with a history of hypertension and POTS, presenting for follow-up after a recent ED visit for chest pain and palpitations. She reports that during the ED visit, she experienced severe chest pain, palpitations, and a sensation of her heart racing. She also felt fatigued and not with it, but denies anxiety at the time. She did not experience syncope, although she felt lightheaded with near-syncope episodes where everything would kind of go black. She was discharged with a diagnosis of unknown chest pain and was told her symptoms were likely related to POTS. Since the ED visit, she has had similar but milder episodes. She has a history of POTS, characterized by episodes of tachycardia and significant lightheadedness. She notes that she has not experienced syncope recently but mentions a past history of syncope while driving. She has not taken an extra dose of metoprolol during these episodes. She is currently on three antihypertensive medications, including a diuretic and metoprolol. She reports that her blood pressure has been well-controlled since starting the diuretic, with readings at home similar to today's measurement. She monitors her blood pressure regularly. She reports adequate hydration and has been increasing her water intake. She describes her diet as consisting mainly of a banana, vanilla yogurt, and sometimes strawberries for breakfast, with frequent snacking on granola bars and oatmeal squares throughout the day. She occasionally eats sausage, egg, and cheese bagels prepared by her mother. She denies any known exposure to mold. 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 lamoTRIgine (LAMICTAL) 25 mg tablet Take 1 tablet by mouth two times a day. triamterene-hydroCHLOROthiazide (MAXZIDE) 75-50 mg per tablet Take 1 tablet by mouth once daily. lisinopril (ZESTRIL) 20 mg tablet Take 1 tablet by mouth once daily. dextroamphetamine-amphetamine (ADDERALL) 5 mg tablet Take 1 tablet by mouth once daily for 30 days. baclofen 10 mg tablet Take 1 tablet [...] Take 1 tablet by mouth once daily. Objective PHYSICAL EXAMINATION: BP 116/72 Pulse 96 Ht 157.5 cm (5' 2.01) Wt 67.9 kg (149 lb 11.1 oz) LMP 07/20/2025 (Exact Date) SpO2 100% BMI 27.37 kg/m? General: Well appearing, in no acute distress. Skin: No clubbing, no cyanosis. Eyes: Extra ocular movements intact Oropharynx: Teeth in good repair. Neck: No jugular venous distention, no carotid bruits, carotids have a normal upstroke. Lungs: Clear to auscultation bilaterally, no wheezing or rhonchi. Heart: Regular rhythm, S1, S2 normal, no S3, no S4, no heaves, no rub and no murmur. No peripheral edema . Grade 2/4 distal pulses bilaterally. Neuro: Oriented to person, place and time, alert, cooperative, gait coordinated. CARDIOVASCULAR MEDICINE TESTING: Electrocardiogram: Normal sinus rhythm Last ECHO Result Conclusion ECHO Collected: 01/29/2025 [...] result) Impression: NORMAL SINUS RHYTHM NORMAL ECG I have personally reviewed the Electrocardiogram. I personally interviewed, confirmed and edited the above information if obtained by others. Conclusion: 1. Postural orthostatic tachycardia syndrome (POTS) (G90.A) Recent ED visit for chest pain and tachycardia was attributed to POTS; no recurrent episodes since. - Provided POTS educational handout. - Advised to take an additional half tablet of metoprolol during episodes of rapid heart rate; if symptoms persist after 20 minutes, take another half tablet. - Advised to increase daily protein intake and minimize sugar and processed foods. - Advised to maintain adequate hydration. - No repeat cardiac monitoring at this time; will reconsider if episodes increase in frequency. 2. Essential (primary) hypertension (I10) Blood pressure is well controlled on current regimen of metoprolol, lisinopril, and a thiazide diuretic. - Continue current antihypertensive regimen. - Advised daily exercise, adequate sleep, and stress reduction. - Discussed potential future reduction of lisinopril if BP remains stable. - Follow-up with Dr. Vaca to be scheduled. PLAN AND RECOMMENDATIONS: We discussed your recent symptoms and follow-up care: - You reported experiencing chest pain, a racing heart, and fatigue during a recent ER visit. The ER physician attributed these symptoms to POTS (Postural Orthostatic Tachycardia Syndrome). Since these episodes have not occurred frequently since your ER visit, I do not recommend placing another heart monitor at this time. However, if your symptoms become more frequent, please let us know, and we can reconsider monitoring. - If you experience a rapid heartbeat, take an extra half dose of metoprolol. Wait 20 minutes, and if your heart rate is still elevated, take another half dose. Continue taking your regular dose of metoprolol daily as prescribed. - Your blood pressure is currently well-controlled. If it remains stable, we may consider reducing your lisinopril dosage in the future to minimize the number of medications you are taking. Please continue monitoring your blood pressure at home and let us know if there are any significant changes. We discussed lifestyle modifications to support your overall health and blood pressure management: - Incorporate protein into every meal to help stabilize your blood sugar levels. Examples include eggs, yogurt, or healthier breakfast meats like organic chicken sausage. Minimize sugar and highly processed foods. - Exercise daily, even if it is a small amount, to support cardiovascular health. - Aim for consistent, quality sleep. Try to maintain a regular bedtime and get at least 8 hours of sleep each night. - Practice stress management techniques to help with overall well-being. We discussed follow-up care: - Please schedule a follow-up appointment with Dr. Vaca to continue monitoring your condition and medications. Let us know if your symptoms worsen or if you have any new concerns. CONTACT INFORMATION: Maritza Bird APRN.[facility] Cardiology Nurse Practitioner Section of [facility] Cardiology [facility] Dept of Cardiovascular Medicine [facility] [place] [address] [place], [place] [address] Office Office This note was partially generated using [employer] voice recognition system and may contain errors related to that system including grammar, punctuation, spelling, and words that may be inappropriate [1] Social History Tobacco Use Smoking status: Never Smokeless tobacco: Never Vaping Use Vaping status: Never Used Substance Use Topics Alcohol use: No Drug use: No CNOV Observed: 08/14/2025 8:30 AM Status: COMPLETED Source: [facility] Office Visit (CARD[facility]) MARICRUZ TEJADA ([id number]) 03 F Date Time Provider Department 08/14/25 8:30 AM MARITZA BIRD During your visit today, we recorded the following information about you: Pulse Blood pressure Weight Height 96/minute 116/72 67.9 kg 1.575 m Maritza Bird APRN.FREELANCE RECRUITER 08/14/2025 1:36 PM [facility] [place] Adelina Sullivan Department of Cardiovascular Medicine SECTION OF CLINICAL CARDIOLOGY OUTPATIENT VISIT DATE August 14, 2025 OUTPATIENT VISIT TYPE ESTABLISHED PRIMARY CARE PHYSICIAN: Celso Freire [address] [place] [address] REFERRING PHYSICIAN: SELF CHIEF COMPLAINT: Follow Up HISTORY OF PRESENT ILLNESS: Miss Tejada is a 20 year old female with PMH syncope, POTS, palpitations,. who presents today for a cardiovascular medicine follow-up visit after she saw Dr aVca in March. . The patient is a 20-year-old female with a history of hypertension and POTS, presenting for follow-up after a recent ED visit for chest pain and palpitations. She reports that during the ED visit, she experienced severe chest pain, palpitations, and a sensation of her heart racing. She also felt fatigued and not with it, but denies anxiety at the time. She did not experience syncope, although she felt lightheaded with near-syncope episodes where everything would kind of go black. She was discharged with a diagnosis of unknown chest pain and was told her symptoms were likely related to POTS. Since the ED visit, she has had similar but milder episodes. She has a history of POTS, characterized by episodes of tachycardia and significant lightheadedness. She notes that she has not experienced syncope recently but mentions a past history of syncope while driving. She has not taken an extra dose of metoprolol during these episodes. She is currently on three antihypertensive medications, including a diuretic and metoprolol. She reports that her blood pressure has been well-controlled since starting the diuretic, with readings at home similar to today's measurement. She monitors her blood pressure regularly. She reports adequate hydration and has been increasing her water intake. She describes her diet as consisting mainly of a banana, vanilla yogurt, and sometimes strawberries for breakfast, with frequent snacking on granola bars and oatmeal squares throughout the day. She occasionally eats sausage, egg, and cheese bagels prepared by her mother. She denies any known exposure to mold. 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 lamoTRIgine (LAMICTAL) 25 mg tablet Take 1 tablet by mouth two times a day. triamterene-hydroCHLOROthiazide (MAXZIDE) 75-50 mg per tablet Take 1 tablet by mouth once daily. lisinopril (ZESTRIL) 20 mg tablet Take 1 tablet by mouth once daily. dextroamphetamine-amphetamine (ADDERALL) 5 mg tablet Take 1 tablet by mouth once daily for 30 days. baclofen 10 mg tablet Take 1 tablet [...] Take 1 tablet by mouth once daily. Objective PHYSICAL EXAMINATION: BP 116/72 Pulse 96 Ht 157.5 cm (5' 2.01) Wt 67.9 kg (149 lb 11.1 oz) LMP 07/20/2025 (Exact Date) SpO2 100% BMI 27.37 kg/m? General: Well appearing, in no acute distress. Skin: No clubbing, no cyanosis. Eyes: Extra ocular movements intact Oropharynx: Teeth in good repair. Neck: No jugular venous distention, no carotid bruits, carotids have a normal upstroke. Lungs: Clear to auscultation bilaterally, no wheezing or rhonchi. Heart: Regular rhythm, S1, S2 normal, no S3, no S4, no heaves, no rub and no murmur. No peripheral edema . Grade 2/4 distal pulses bilaterally. Neuro: Oriented to person, place and time, alert, cooperative, gait coordinated. CARDIOVASCULAR MEDICINE TESTING: Electrocardiogram: Normal sinus rhythm Last ECHO Result Conclusion ECHO Collected: 01/29/2025 [...] result) Impression: NORMAL SINUS RHYTHM NORMAL ECG I have personally reviewed the Electrocardiogram. I personally interviewed, confirmed and edited the above information if obtained by others. Conclusion: 1. Postural orthostatic tachycardia syndrome (POTS) (G90.A) Recent ED visit for chest pain and tachycardia was attributed to POTS; no recurrent episodes since. - Provided POTS educational handout. - Advised to take an additional half tablet of metoprolol during episodes of rapid heart rate; if symptoms persist after 20 minutes, take another half tablet. - Advised to increase daily protein intake and minimize sugar and processed foods. - Advised to maintain adequate hydration. - No repeat cardiac monitoring at this time; will reconsider if episodes increase in frequency. 2. Essential (primary) hypertension (I10) Blood pressure is well controlled on current regimen of metoprolol, lisinopril, and a thiazide diuretic. - Continue current antihypertensive regimen. - Advised daily exercise, adequate sleep, and stress reduction. - Discussed potential future reduction of lisinopril if BP remains stable. - Follow-up with Dr. Vaca to be scheduled. PLAN AND RECOMMENDATIONS: We discussed your recent symptoms and follow-up care: - You reported experiencing chest pain, a racing heart, and fatigue during a recent ER visit. The ER physician attributed these symptoms to POTS (Postural Orthostatic Tachycardia Syndrome). Since these episodes have not occurred frequently since your ER visit, I do not recommend placing another heart monitor at this time. However, if your symptoms become more frequent, please let us know, and we can reconsider monitoring. - If you experience a rapid heartbeat, take an extra half dose of metoprolol. Wait 20 minutes, and if your heart rate is still elevated, take another half dose. Continue taking your regular dose of metoprolol daily as prescribed. - Your blood pressure is currently well-controlled. If it remains stable, we may consider reducing your lisinopril dosage in the future to minimize the number of medications you are taking. Please continue monitoring your blood pressure at home and let us know if there are any significant changes. We discussed lifestyle modifications to support your overall health and blood pressure management: - Incorporate protein into every meal to help stabilize your blood sugar levels. Examples include eggs, yogurt, or healthier breakfast meats like organic chicken sausage. Minimize sugar and highly processed foods. - Exercise daily, even if it is a small amount, to support cardiovascular health. - Aim for consistent, quality sleep. Try to maintain a regular bedtime and get at least 8 hours of sleep each night. - Practice stress management techniques to help with overall well-being. We discussed follow-up care: - Please schedule a follow-up appointment with Dr. Vaca to continue monitoring your condition and medications. Let us know if your symptoms worsen or if you have any new concerns. CONTACT INFORMATION: Maritza Bird APRN.CNP Cardiology Nurse Practitioner Section of Regional Cardiology [facility] Dept of Cardiovascular Medicine [facility] [place] [address] [place] [address] Office Office This note was partially generated using [employer] voice recognition system and may contain errors related to that system including grammar, punctuation, spelling, and words that may be inappropriate [1] Social History Tobacco Use Smoking status: Never Smokeless tobacco: Never Vaping Use Vaping status: Never Used Substance Use Topics Alcohol use: No Drug use: No Maritza Bird APRN.CNP 08/14/2025 9:02 AM Signed We discussed your recent symptoms and follow-up care: - You reported experiencing chest pain, a racing heart, and fatigue during a recent ER visit. The ER physician attributed these symptoms to POTS (Postural Orthostatic Tachycardia Syndrome). Since these episodes have not occurred frequently since your ER visit, I do not recommend placing another heart monitor at this time. However, if your symptoms become more frequent, please let us know, and we can reconsider monitoring. - If you experience a rapid heartbeat, take an extra half dose of metoprolol. Wait 20 minutes, and if your heart rate is still elevated, take another half dose. Continue taking your regular dose of metoprolol daily as prescribed. - Your blood pressure is currently well-controlled. If it remains stable, we may consider reducing your lisinopril dosage in the future to minimize the number of medications you are taking. Please continue monitoring your blood pressure at home and let us know if there are any significant changes. We discussed lifestyle modifications to support your overall health and blood pressure management: - Incorporate protein into every meal to help stabilize your blood sugar levels. Examples include eggs, yogurt, or healthier breakfast meats like organic chicken sausage. Minimize sugar and highly processed foods. - Exercise daily, even if it is a small amount, to support cardiovascular health. - Aim for consistent, quality sleep. Try to maintain a regular bedtime and get at least 8 hours of sleep each night. - Practice stress management techniques to help with overall well-being. We discussed follow-up care: - Please schedule a follow-up appointment with Dr. [place] to continue monitoring your condition and medications. Let us know if your symptoms worsen or if you have any new concerns. Maritza Bird APRN.FREELANCE RECRUITER Referring Provider: SELF [200] Allergies As of Date: 08/14/2025 Noted Allergy Reaction CODEINE 07/03/2007 TRAMADOL 06/30/2014 9 - Itching 14 - Other: See Comments Comments: Dizziness Date Reviewed: 08/14/2025 Reviewed by: Marisela Tracy LPN - Fully Assessed Reason for Visit: Follow Up [171] Visit Diagnoses:Postural orthostatic tachycardia syndrome (POTS) [G90.A] Essential (primary) hypertension [I10] Prescriptions as of 08/14/2025 - PARoxetine (PAXIL) 10 mg tablet Take 1.5 tablets by mouth once daily. - lamoTRIgine (LAMICTAL) 25 mg tablet Take 1 tablet by mouth two times a day. - triamterene-hydroCHLOROthiazide (MAXZIDE) 75-50 mg per tablet Take 1 tablet by mouth once daily. - lisinopril (ZESTRIL) 20 mg tablet Take 1 tablet by mouth once daily. - dextroamphetamine-amphetamine (ADDERALL) 5 mg tablet Take 1 tablet by mouth once daily for 30 days. - baclofen 10 mg tablet Take 1 [...] once daily. Problem List As Of Date 08/14/2025 Noted Resolved Tabor's fracture of base of [...] Decreased right shoulder range of motion [M25.6*04/06/2025 Other instructions from your clinician: We discussed your recent symptoms and follow-up care: - You reported experiencing chest pain, a racing heart, and fatigue during a recent ER visit. The ER physician attributed these symptoms to POTS (Postural Orthostatic Tachycardia Syndrome). Since these episodes have not occurred frequently since your ER visit, I do not recommend placing another heart monitor at this time. However, if your symptoms become more frequent, please let us know, and we can reconsider monitoring. - If you experience a rapid heartbeat, take an extra half dose of metoprolol. Wait 20 minutes, and if your heart rate is still elevated, take another half dose. Continue taking your regular dose of metoprolol daily as prescribed. - Your blood pressure is currently well-controlled. If it remains stable, we may consider reducing your lisinopril dosage in the future to minimize the number of medications you are taking. Please continue monitoring your blood pressure at home and let us know if there are any significant changes. We discussed lifestyle modifications to support your overall health and blood pressure management: - Incorporate protein into every meal to help stabilize your blood sugar levels. Examples include eggs, yogurt, or healthier breakfast meats like organic chicken sausage. Minimize sugar and highly processed foods. - Exercise daily, even if it is a small amount, to support cardiovascular health. - Aim for consistent, quality sleep. Try to maintain a regular bedtime and get at least 8 hours of sleep each night. - Practice stress management techniques to help with overall well-being. We discussed follow-up care: - Please schedule a follow-up appointment with Dr. [place] to continue monitoring your condition and medications. Let us know if your symptoms worsen or if you have any new concerns. Maritza Bird APRN.FREELANCE RECRUITER Disposition: Return in about 6 months (around 02/11/2026) for maria d. Follow-up and Disposition History for Encounter Date Provider Department Center 08/14/2025 [id number] BIRD [facility] Encounter Status:Closed by MARITZA BIRD on 08/14/25 FLUABV+SARS-COV-2+RSV PNL RE SP MICHAEL+PROBE Observed: 07/31/2025 8:26 AM Status: F Source: [facility] SARS-COV-2 (AGENT OF COVID-1 9) RNA: Not detectedINFLUENZA A RNA: Not detectedINFLUENZA B RNA: Not detectedRESPIRATORY SYNCYTIAL VIRUS (RSV) RNA: Not detected Performed By: #### [id number] # ### [facility] CLIA [id number] [address] [place] [address] [place] PROGR[place] Observed: 07/31/2025 8:07 AM Status: COMPLETED Source: [facility] HNO ID: [id number] Author: EMBER CR APRN.FREELANCE RECRUITER Service: ? Author Type: Nurse Practitioner Type: Progress Notes Filed: 07/31/2025 08:54 Note Text: This is a 20 year old female who presents today with: 4 week follow up and sinus infection HISTORY OF PRESENT ILLNESS: - doing better with depressed mood on the lamictal, but continues to struggle with anxiety - would like to try a dose higher on paxil - taking adderall about 4 days per week for school, denies any adverse effects from it although she did have 07/09 ER visit for chest pain/racing heart but denies taking adderall that day. ER visit was unremarkable, they felt related to POTS - 3 days of sinus pain/pressure and congestion. - denies fevers or chills, but is having green nasal drainage and fatigue - ear pain/pressure on and off, better today, left one worse PAST MEDICAL HISTORY: PAST MEDICAL HISTORY Diagnosis [...] Tramadol MEDICATIONS Current Outpatient Medications Medication Sig lisinopril (ZESTRIL) 20 mg tablet Take 1 tablet by mouth once daily. PARoxetine (PAXIL) 10 mg tablet Take 1 tablet by mouth once daily. dextroamphetamine-amphetamine (ADDERALL) 5 mg tablet Take 1 tablet by mouth once daily for 30 days. lamoTRIgine (LAMICTAL) 25 mg tablet Take 1 tablet by mouth two times a day. Start taking 25mg 1 tab daily x 14 days and then increase to 25mg twice daily triamterene-hydroCHLOROthiazide (MAXZIDE) 75-50 mg per tablet Take [...] 1 capsule by mouth once daily. DULoxetine DR (CYMBALTA) 20 mg capsule Take 1 capsule by mouth once daily. (Patient not taking: Reported on 07/31/2025) No current facility-administered medications for this visit. FAMILY HISTORY Problem Relation Age of Onset Hypertension Mother Started in mid-30's Hypertension Father No Known Problems Sister No Known Problems Brother Hypertension Maternal Grandmother Hypertension Maternal Grandfather Lipids Maternal Grandfather other (FIBROMYALGIA) Paternal Grandmother SOCIAL HISTORY[1] REVIEW OF SYSTEMS See HPI EXAM: BP 122/74 Pulse 74 Temp 36.3 ?C (97.4 ?F) (Tympanic) Resp 16 Wt 69.5 kg (153 lb 3.2 oz) LMP 07/20/2025 (Exact Date) SpO2 99% BMI 28.02 kg/m? PHYSICAL EXAM: General Appearance: nontoxic appearing, alert, in no acute distress, well-hydrated, well nourished Head: Normocephalic, no masses, lesions. Tenderness frontal sinus and maxillary sinus Ears: External ears normal, canals clear. Left ear effusion and TM bulging, no purulent drainage Nose/Sinuses: nasal turbinates pale and swollen , septum midline, no current drainage noted Oropharynx: Lips, mucosa, and tongue normal, teeth and gums normal; post oropharyngeal erythema and grade II tonsils Neck: Supple, no adenopathy; thyroid symmetric, normal size, no bruits. Lungs: Lungs clear to auscultation. No wheezing, rhonchi, rales.. Heart: RRR without murmur, gallop, or rubs. No ectopy. ASSESSMENT/PLAN: 1. OCTAVIO (generalized anxiety disorder) - ICD9: 300.02, ICD10: F41.1 (primary diagnosis) 2. Depression, unspecified depression type - ICD9: 311, ICD10: F32.A 3. Stress - ICD9: V62.89, ICD10: F43.9 - LAMOTRIGINE 25 MG TABLET - PAROXETINE 10 MG TABLET 4. Bacterial sinusitis - ICD9: 473.9, 041.9, ICD10: J32.9, B96.89 5. Purulent nasal discharge - ICD9: 478.19, ICD10: J34.89 6. Head congestion - ICD9: 478.19, ICD10: R09.81 - Will begin treatment with Zithromax pack as directed, patient states amoxicillin doesn't work for her - COVID AND INFLUENZA A/B AND RSV PCR, ROUTINE - AZITHROMYCIN 250 MG TABLET 7. Hypertension, essential - ICD9: 401.9, ICD10: I10 - Controlled - Encouraged sodium restriction, DASH or Mediterranean diet - Recommend regular aerobic exercise - TRIAMTERENE 75 MG-HYDROCHLOROTHIAZIDE 50 MG TABLET- refilled as her pharmacy said they didn't have it Discussed treatment plan and patient voices understanding. Patient's questions answered appropriately. Medications and potential side effects were discussed and patient voices understanding. Return to the office as scheduled or as needed for worsening/no improvement. Ember Cr APRN.FREELANCE RECRUITER Recording using [employer] software for draft documentation of the visit was discussed with the patient/authorized auto service representative; all questions welcomed and answered. Patient/authorized auto service representative agreed to proceed [1] Social History Tobacco Use Smoking status: Never Smokeless tobacco: Never Vaping Use Vaping status: Never Used Substance Use Topics Alcohol use: No Drug use: No CNOV Observed: 07/31/2025 8:00 AM Status: COMPLETED Source: [facility] [place] ([id number]) 1 F Date Time Provider Department 07/31/25 8:00 AM EMBER CR During your visit today, we recorded the following information about you: Temperature Pulse Respiration Blood pressure 97.4 degrees 74/minute 16/minute 122/74 Weight Last Period 69.5 kg 07/20/25 Ember Cr APRN.FREELANCE RECRUITER 07/31/2025 8:54 AM Signed This is a 20 year old female who presents today with: 4 week follow up and sinus infection HISTORY OF PRESENT ILLNESS: - doing better with depressed mood on the lamictal, but continues to struggle with anxiety - would like to try a dose higher on paxil - taking adderall about 4 days per week for school, denies any adverse effects from it although she did have 07/09 ER visit for chest pain/racing heart but denies taking adderall that day. ER visit was unremarkable, they felt related to POTS - 3 days of sinus pain/pressure and congestion. - denies fevers or chills, but is having green nasal drainage and fatigue - ear pain/pressure on and off, better today, left one worse PAST MEDICAL HISTORY: PAST MEDICAL HISTORY Diagnosis [...] Tramadol MEDICATIONS Current Outpatient Medications Medication Sig lisinopril (ZESTRIL) 20 mg tablet Take 1 tablet by mouth once daily. PARoxetine (PAXIL) 10 mg tablet Take 1 tablet by mouth once daily. dextroamphetamine-amphetamine (ADDERALL) 5 mg tablet Take 1 tablet by mouth once daily for 30 days. lamoTRIgine (LAMICTAL) 25 mg tablet Take 1 tablet by mouth two times a day. Start taking 25mg 1 tab daily x 14 days and then increase to 25mg twice daily triamterene-hydroCHLOROthiazide (MAXZIDE) 75-50 mg per tablet Take [...] 1 capsule by mouth once daily. DULoxetine DR (CYMBALTA) 20 mg capsule Take 1 capsule by mouth once daily. (Patient not taking: Reported on 07/31/2025) No current facility-administered medications for this visit. FAMILY HISTORY Problem Relation Age of Onset Hypertension Mother Started in mid-30's Hypertension Father No Known Problems Sister No Known Problems Brother Hypertension Maternal Grandmother Hypertension Maternal Grandfather Lipids Maternal Grandfather other (FIBROMYALGIA) Paternal Grandmother SOCIAL HISTORY[1] REVIEW OF SYSTEMS See HPI EXAM: BP 122/74 Pulse 74 Temp 36.3 ?C (97.4 ?F) (Tympanic) Resp 16 Wt 69.5 kg (153 lb 3.2 oz) LMP 07/20/2025 (Exact Date) SpO2 99% BMI 28.02 kg/m? PHYSICAL EXAM: General Appearance: nontoxic appearing, alert, in no acute distress, well-hydrated, well nourished Head: Normocephalic, no masses, lesions. Tenderness frontal sinus and maxillary sinus Ears: External ears normal, canals clear. Left ear effusion and TM bulging, no purulent drainage Nose/Sinuses: nasal turbinates pale and swollen , septum midline, no current drainage noted Oropharynx: Lips, mucosa, and tongue normal, teeth and gums normal; post oropharyngeal erythema and grade II tonsils Neck: Supple, no adenopathy; thyroid symmetric, normal size, no bruits. Lungs: Lungs clear to auscultation. No wheezing, rhonchi, rales.. Heart: RRR without murmur, gallop, or rubs. No ectopy. ASSESSMENT/PLAN: 1. OCTAVIO (generalized anxiety disorder) - ICD9: 300.02, ICD10: F41.1 (primary diagnosis) 2. Depression, unspecified depression type - ICD9: 311, ICD10: F32.A 3. Stress - ICD9: V62.89, ICD10: F43.9 - LAMOTRIGINE 25 MG TABLET - PAROXETINE 10 MG TABLET 4. Bacterial sinusitis - ICD9: 473.9, 041.9, ICD10: J32.9, B96.89 5. Purulent nasal discharge - ICD9: 478.19, ICD10: J34.89 6. Head congestion - ICD9: 478.19, ICD10: R09.81 - Will begin treatment with Zithromax pack as directed, patient states amoxicillin doesn't work for her - COVID AND INFLUENZA A/B AND RSV PCR, ROUTINE - AZITHROMYCIN 250 MG TABLET 7. Hypertension, essential - ICD9: 401.9, ICD10: I10 - Controlled - Encouraged sodium restriction, DASH or Mediterranean diet - Recommend regular aerobic exercise - TRIAMTERENE 75 MG-HYDROCHLOROTHIAZIDE 50 MG TABLET- refilled as her pharmacy said they didn't have it Discussed treatment plan and patient voices understanding. Patient's questions answered appropriately. Medications and potential side effects were discussed and patient voices understanding. Return to the office as scheduled or as needed for worsening/no improvement. Ember Cr APRN.FREELANCE RECRUITER Recording using [employer] software for draft documentation of the visit was discussed with the patient/authorized auto service representative; all questions welcomed and answered. Patient/authorized auto service representative agreed to proceed [1] Social History Tobacco Use Smoking status: Never Smokeless tobacco: Never Vaping Use Vaping status: Never Used Substance Use Topics Alcohol use: No Drug use: No Ember Cr APRN.CNP 07/31/2025 8:22 AM Signed Take 1.5 tabs of your paxil to = 15mg Take zpak as directed Rest Drink plenty of fluids Allergies As of Date: 07/31/2025 Noted Allergy Reaction CODEINE 07/03/2007 TRAMADOL 06/30/2014 9 - Itching 14 - Other: See Comments Comments: Dizziness Date Reviewed: 07/31/2025 Reviewed by: Ember Cr APRN.FREELANCE RECRUITER - Fully Assessed Reason for Visit: Follow Up [171] Cmt: 4 weeks Sinus Problem [99] Primary Visit Diagnosis:OCTAVIO (generalized anxiety disorder) [F41.1] Other Visit Diagnoses:Depression, unspecified depression type [F32.A] Stress [F43.9] Bacterial sinusitis [J32.9, B96.89] Purulent nasal discharge [J34.89] Head congestion [R09.81] Hypertension, essential [I10] Order(s):PARoxetine (PAXIL) 10 mg tabletTake 1.5 tablets by mouth once daily.Disp: 45 tabletRfl: 2 lamoTRIgine (LAMICTAL) 25 mg tabletTake 1 tablet by mouth two times a day.Disp: 60 tabletRfl: 2 triamterene-hydroCHLOROthiazide (MAXZIDE) 75-50 mg per tabletTake 1 tablet by mouth once daily.Disp: 30 tabletRfl: 2 COVID AND INFLUENZA A/B AND RSV PCR, ROUTINE [SQCVFLRS] Order #: [id number]. #:[id number] azithromycin (ZITHROMAX) 250 mg tabletTake 1 tablet by mouth as directed for 5 days. Take 2 tabs (500mg) today and take 1 tablet (250mg) daily x 4 daysDisp: 6 tabletRfl: 0 Prescriptions as of 07/31/2025 - PARoxetine (PAXIL) 10 mg tablet Take 1.5 tablets by mouth once daily. - lamoTRIgine (LAMICTAL) 25 mg tablet Take 1 tablet by mouth two times a day. - triamterene-hydroCHLOROthiazide (MAXZIDE) 75-50 mg per tablet Take 1 tablet by mouth once daily. - azithromycin (ZITHROMAX) 250 mg tablet Take 1 tablet by mouth as directed for 5 days. Take 2 tabs (500mg) today and take 1 tablet (250mg) daily x 4 days - lisinopril (ZESTRIL) 20 mg tablet Take 1 tablet by mouth once daily. - dextroamphetamine-amphetamine (ADDERALL) 5 mg tablet Take 1 tablet by mouth once daily for 30 days. - baclofen 10 mg tablet Take 1 [...] once daily. Problem List As Of Date 07/31/2025 Noted Resolved Tabor's fracture of base of [...] Decreased right shoulder range of motion [M25.6*04/06/2025 Other instructions from your clinician: Take 1.5 tabs of your paxil to = 15mg Take zpak as directed Rest Drink plenty of fluids Prescriptions ordered this encounter Disp Refills Start End LAMOTRIGINE 25 MG TABLET 60 t* 0 07/31/2025 07/31/2025 Route: PO Sig: Take 1 tablet by mouth two times a day. PAROXETINE 10 MG TABLET 45 t* 2 07/31/2025 10/29/2025 Route: PO Sig: Take 1.5 tablets by mouth once daily. LAMOTRIGINE 25 MG TABLET 60 t* 2 07/31/2025 10/29/2025 Route: PO Sig: Take 1 tablet by mouth two times a day. TRIAMTERENE 75 MG-HYDROCHLOROTHIAZID* 30 t* 2 07/31/2025 10/29/2025 Route: PO Sig: Take 1 tablet by mouth once daily. AZITHROMYCIN 250 MG TABLET 6 ta* 0 07/31/2025 08/05/2025 Route: PO Sig: Take 1 tablet by mouth as directed for 5 days. Take 2 tabs (500mg) today and take 1 tablet (250mg) daily x 4 days Medications Discontinued During This Encounter Prescriptions - DULoxetine DR (CYMBALTA) 20 mg capsule (Discontinued) Reported on 07/31/2025 - lamoTRIgine (LAMICTAL) 25 mg tablet (Discontinued) Take 1 tablet by mouth two times a day. Start taking 25mg 1 tab daily x 14 days and then increase to 25mg twice daily - PARoxetine (PAXIL) 10 mg tablet (Discontinued) Take 1 tablet by mouth once daily. - triamterene-hydroCHLOROthiazide (MAXZIDE) 75-50 mg per tablet (Discontinued) Take 1 tablet by mouth once daily. - lamoTRIgine (LAMICTAL) 25 mg tablet (Discontinued) Take 1 tablet by mouth two times a day. Level of Service: OFFICE/OUTPATIENT ESTABLISHED MOD MDM 30 MIN [62113] Additional E/M codes: VISIT CPLX INHERENT EANDM ASSOC WITH MED * Disposition: Return in about 3 months (around 10/30/2025) for Med follow up (anxiety). Follow-up and Disposition History for Encounter Date Provider Department Center 07/31/2025 [id number]-KURYXEMBER CR*FAMPWS [facility] Encounter Status:Closed by EMBER CR on 07/31/25 CNCO Observed: 07/17/2025 12:00 AM Status: COM PLETED Source: [facility] Letter Text PROGRESS Observed: 07/07/2025 1:13 PM Status: COMPLETED Source: [facility] HNO ID: [id number] Author: DAVIDSON MCARTHUR MD Service: ? Author Type: Physician [...] schedule visit as per follow up discussed. Dvaidson Mcarthur MD PROGRESS Observed: 07/07/2025 1:00 PM Status: COMPLETED Source: [facility] HNO ID: [id number] Author: STEFFEN CHANG Tech Service: ? Author Type: Arbitrator Type: Progress Notes Filed: 07/07/2025 13:15 Note [...] Negative for excessive bleeding, clots, bleeding disorders. CNOV Observed: 07/07/2025 1:00 PM Status: COMPLETED Source: [facility] Office Visit ([email or web address]) MARICRUZ TEJADA ([id number]) 1 F Date Time Provider Department 07/07/25 1:00 PM DAVIDSON MCARTHUR [email or web address] During your visit today, we recorded the following information about you: Respiration Weight Height 16/minute 69.4 kg 1.575 m Steffen Chang Tech 07/07/2025 1:15 PM Signed REVIEW [...] Negative for excessive bleeding, clots, bleeding disorders. Davidson Mcarthur MD 07/07/2025 1:15 PM Signed History: [...] schedule visit as per follow up discussed. Davidson Mcarthur MD Allergies As of Date: 07/07/2025 Noted Allergy Reaction CODEINE 07/03/2007 TRAMADOL 06/30/2014 9 - Itching 14 - Other: See Comments Comments: Dizziness Date Reviewed: 07/07/2025 Reviewed by: Steffen Chang Tech - Fully Assessed Reason for Visit: Post Op [174] Follow Up [171] Primary Visit Diagnosis:Status post labral repair of shoulder [Z98.890] Prescriptions as of 07/07/2025 - lisinopril (ZESTRIL) 20 mg tablet Take 1 tablet by mouth once daily. - PARoxetine (PAXIL) 10 mg tablet Take 1 tablet by mouth once daily. - dextroamphetamine-amphetamine (ADDERALL) 5 mg tablet Take 1 tablet by mouth once daily for 30 days. - DULoxetine DR (CYMBALTA) 20 mg capsule Take 1 capsule by mouth once daily. - lamoTRIgine (LAMICTAL) 25 mg tablet Take 1 tablet by mouth two times a day. Start taking 25mg 1 tab daily x 14 days and then increase to 25mg twice daily - triamterene-hydroCHLOROthiazide (MAXZIDE) 75-50 mg per tablet Take [...] range of motion [M25.6*04/06/2025 Encounter Status:Closed by DAVIDSON MCARTHUR on 07/07/25 THERAPY NT Observed: 07/03/2025 10:53 AM Status: COMPLETED Source: [facility] HNO ID: [id number] Author: MAYCO ROBLEDO PTA Service: ? Author Type: Regional Project Manager Type: Therapy (PT/OT/Speech/Resp) Filed: 07/03/2025 10:53 Note Text: Program_ID:[id number] Access Code: [email or web address] URL: [email or web address] Date: 07-03-2025 Prepared By: Luis Enrique Sears [...] x weekly - 3 sets - 10 reps- Sidelying Shoulder Abduction Palm Forward - x daily - 3-4 x weekly - 2- 3 sets - 10 reps - Standing Row with Anchored Resistance - x daily - 3-4 x weekly - 3 sets - 10 reps CNTHERAPY Observed: 07/03/2025 10:15 AM Status: COMPLETED Source: [facility] OT/PT/Speech Visit (AKPTG) MARICRUZ TEJADA ([id number]) 1 F Date Time Provider Department 07/03/25 10:15 AM MAYCO ROBLEDO Date Time Provider Department Center 07/03/2025 10:15 AM [id number] ROBLEDO [facility] Reason for Visit: Physical Therapy [503] Primary Visit Diagnosis:Chronic right shoulder pain [M25.511, G89.29] Other Visit Diagnoses:Weakness of right upper extremity [R29.898] Decreased right shoulder range of motion [M25.611] Allergies As of Date: 07/03/2025 Noted Allergy Reaction CODEINE 07/03/2007 TRAMADOL 06/30/2014 9 - Itching 14 - Other: See Comments Comments: Dizziness Date Reviewed: 07/03/2025 Reviewed by: Ember Cr APRN.FREELANCE RECRUITER - Fully Assessed Prescriptions as of 07/03/2025 - lisinopril (ZESTRIL) 20 mg tablet Take 1 tablet by mouth once daily. - PARoxetine (PAXIL) 10 mg tablet Take 1 tablet by mouth once daily. - dextroamphetamine-amphetamine (ADDERALL) 5 mg tablet Take 1 tablet by mouth once daily for 30 days. - DULoxetine DR (CYMBALTA) 20 mg capsule Take 1 capsule by mouth once daily. - lamoTRIgine (LAMICTAL) 25 mg tablet Take 1 tablet by mouth two times a day. Start taking 25mg 1 tab daily x 14 days and then increase to 25mg twice daily - triamterene-hydroCHLOROthiazide (MAXZIDE) 75-50 mg per tablet Take [...] Take 1 tablet by mouth once daily. Hand Mixer: Addendum Therapy (PT/OT/Speech/Resp) ID: [id number] 07/03/2025 10:53 AM Author: MAYCO ROBLEDO Signed by MAYCO ROBLEDO PROFESSOR OF ECONOMICS on 07/03/2025 at 10:53 AM * * * This document replaces document [id number] * * * Document text: Program_ID:[id number] Access Code: [email or web address] URL: [email or web address] Date: 07-03-2025 Prepared By: Luis Enrique Sears [...] weekly - 3 sets - 10 reps PROGRESS Observed: 07/03/2025 10:14 AM Status: COMPLETED Source: [facility] HNO ID: [id number] Author: MAYCO ROBLEDO PTA Service: ? Author Type: Regional Project Manager Type: Progress Notes Filed: 07/03/2025 10:57 Note Text: Episode Visit Count: 5 Therapist That Will Accept/Oversee The Plan Of Care: Luis Enrique Sears, PT, DPT Start of Care Date: 04/06/25 Onset Date: 12/20/23 Plan of Care Certification Date: 11/27/24 Next Certification Due Date: 11/27/24 RE[facility]ABIL[facility]ORTS THERAPY PHYSICAL THERAPY TREATMENT NOTE ASSESSMENT: Maircruz Tejada tolerated the session with expected muscle [...] Stop Time : 1056 Mayco Robledo PTA PROGRESS Observed: 07/03/2025 7:10 AM Status: COMPLETED Source: [facility] HNO ID: [id number] Author: EMBER CR APRN.FREELANCE RECRUITER Service: ? Author Type: Nurse Practitioner Type: [...] - On a waitlist for therapy with [place] POTS: - Diagnosed with POTS; experiences symptoms [...] scheduled or as needed for worsening/no improvement. Ember Cr APRN.FREELANCE RECRUITER Recording using Vers[employer] software for draft documentation of the visit was discussed with the patient/authorized auto service representative; all questions welcomed and answered. Patient/authorized auto service representative agreed to proceed [1] Social History Tobacco Use Smoking status: Never Smokeless tobacco: Never Vaping Use Vaping status: Never Used Substance Use Topics Alcohol use: No Drug use: No CNOV Observed: 07/03/2025 7:00 AM Status: COMPLETED Source: [facility] MARICRUZ TEJADA ([id number]) 1 F Date Time Provider Department 07/03/25 7:00 AM [facility] During your visit today, we recorded the following information about you: Pulse Respiration Blood pressure Weight 76/minute 16/minute 120/86 69.6 kg Ember Cr APRN.FREELANCE RECRUITER 07/03/2025 8:16 AM Signed This is a [...] - On a waitlist for therapy with [place] POTS: - Diagnosed with POTS; experiences symptoms [...] scheduled or as needed for worsening/no improvement. Ember Cr APRN.FREELANCE RECRUITER Recording using Vers[employer] software for draft documentation of the visit was discussed with the patient/authorized auto service representative; all questions welcomed and answered. Patient/authorized auto service representative agreed to proceed [1] Social History Tobacco Use Smoking status: Never Smokeless tobacco: Never Vaping Use Vaping status: Never Used Substance Use Topics Alcohol use: No Drug use: Ember Bowens APRN.CNP 07/03/2025 7:23 AM Addendum Get your urine tox screen done for adderall compliance Start duloxetine 20mg daily x 7 days and then every other day until gone then stop Continue paxil Start lamictal 25mg by mouth daily x 14 days and then increase to 25mg twice a day - will review and adjust up at follow up if needed and tolerating Allergies As of Date: 07/03/2025 Noted Allergy Reaction CODEINE 07/03/2007 TRAMADOL 06/30/2014 9 - Itching 14 - Other: See Comments Comments: Dizziness Date Reviewed: 07/03/2025 Reviewed by: Ember Cr APRN.FREELANCE RECRUITER - Fully Assessed Reason for Visit: Follow Up [171] Cmt: Medication change Primary Visit Diagnosis:Depression, unspecified depression type [F32.A] Other Visit Diagnoses:Stress [F43.9] Attention deficit disorder (ADD) in adult [F98.8] Medication management contract agreement [Z02.89] Hypertension, essential [I10] OCTAVIO (generalized anxiety disorder) [F41.1] Order(s):lisinopril (ZESTRIL) 20 mg tabletTake 1 tablet by mouth once daily.Disp: 30 tabletRfl: 2 PARoxetine (PAXIL) 10 mg tabletTake 1 tablet by mouth once daily.Disp: 30 tabletRfl: 5 dextroamphetamine-amphetamine (ADDERALL) 5 mg tabletTake 1 tablet by mouth once daily for 30 days.Disp: 30 tabletRfl: 0 TOXICOLOGY SCREEN, ROUTINE URINE [SQUTOX2] Order #: [id number] FUTURE DULoxetine DR (CYMBALTA) 20 mg capsuleTake 1 capsule by mouth once daily.Disp: 10 capsuleRfl: 0 lamoTRIgine (LAMICTAL) 25 mg tabletTake 1 tablet by mouth two times a day. Start taking 25mg 1 tab daily x 14 days and then increase to 25mg twice dailyDisp: 60 tabletRfl: 0 Prescriptions as of 07/03/2025 - lisinopril (ZESTRIL) 20 mg tablet Take 1 tablet by mouth once daily. - PARoxetine (PAXIL) 10 mg tablet Take 1 tablet by mouth once daily. - dextroamphetamine-amphetamine (ADDERALL) 5 mg tablet Take 1 tablet by mouth once daily for 30 days. - DULoxetine DR (CYMBALTA) 20 mg capsule Take 1 capsule by mouth once daily. - lamoTRIgine (LAMICTAL) 25 mg tablet Take 1 tablet by mouth two times a day. Start taking 25mg 1 tab daily x 14 days and then increase to 25mg twice daily - triamterene-hydroCHLOROthiazide (MAXZIDE) 75-50 mg per tablet Take [...] once daily. Problem List As Of Date 07/03/2025 Noted Resolved Tabor's fracture of base of [...] Decreased right shoulder range of motion [M25.6*04/06/2025 Other instructions from your clinician: Get your urine tox screen done for adderall compliance Start duloxetine 20mg daily x 7 days and then every other day until gone then stop Continue paxil Start lamictal 25mg by mouth daily x 14 days and then increase to 25mg twice a day - will review and adjust up at follow up if needed and tolerating Prescriptions ordered this encounter Disp Refills Start End LISINOPRIL 20 MG TABLET 30 t* 2 07/03/2025 10/01/2025 Route: PO Sig: Take 1 tablet by mouth once daily. PAROXETINE 10 MG TABLET 30 t* 5 07/03/2025 12/30/2025 Route: PO Sig: Take 1 tablet by mouth once daily. DEXTROAMPHETAMINE-AMPHETAMINE 5 MG T* 30 t* 0 07/03/2025 08/02/2025 Route: PO Sig: Take 1 tablet by mouth once daily for 30 days. DULOXETINE 20 MG CAPSULE,DELAYED REL* 10 c* 0 07/03/2025 Route: PO Sig: Take 1 capsule by mouth once daily. LAMOTRIGINE 25 MG TABLET 60 t* 0 07/03/2025 08/02/2025 Route: PO Sig: Take 1 tablet by mouth two times a day. Start taking 25mg 1 tab daily x 14 days and then increase to 25mg twice daily Medications Discontinued During This Encounter Prescriptions - DULoxetine (CYMBALTA) 40 mg cpDR (Discontinued) Take 1 capsule by mouth once daily. - PARoxetine (PAXIL) 10 mg tablet (Discontinued) Take 1 tablet by mouth once daily. - lisinopril (ZESTRIL) 20 mg tablet (Discontinued) Take 1 tablet by mouth once daily. Level of Service: OFFICE/OUTPATIENT ESTABLISHED MOD MDM 30 MIN [41446] Additional E/M codes: VISIT CPLX INHERENT EANDM ASSOC WITH MED * Disposition: Return in about 4 weeks (around 07/31/2025) for med follow up. Follow-up and Disposition History for Encounter Date Provider Department Center 07/03/2025 [id number] CR*FAMPWS Alvaro [facility] Encounter Status:Closed by EMBER CR on 07/03/25 THERAPY NT Observed: 06/17/2025 8:18 AM Status: COMPLETED Source: [facility] HNO ID: [id number] Author: LUIS ENRIQUE SEARS, PT Service: Physical Therapy Author Type: Physical Therapist Type: Therapy (PT/OT/Speech/Resp) Filed: 06/17/2025 08:18 Note Text: Program_ID:[id number] Access Code: [email or web address] URL: [email or web address] Date: 06-17-2025 Prepared By: Luis Enrique Sears [...] weekly - 3 sets - 10 reps CNTHERAPY Observed: 06/17/2025 7:45 AM Status: COMPLETED Source: [facility] OT/PT/Speech Visit (AKPTG) MARICRUZ TEJADA ([id number]) 1 F Date Time Provider Department 06/17/25 7:45 AM LUIS ENRIQUE SEARS Date Time Provider Department Mentcle 06/17/2025 7:45 AM [id number] ENRIQUE SEARS [facility] Reason for Visit: PT Progress Note [5842] Primary Visit Diagnosis:Chronic right shoulder pain [M25.511, [...] 1.5 tablets by mouth once daily. - triamterene-hydroCHLOROthiazide (MAXZIDE) 75-50 mg per tablet Take [...] Take 1 tablet by mouth once daily. Hand Mixer: Addendum Therapy (PT/OT/Speech/Resp) ID: [id number] 06/17/2025 8:18 AM Author: LUIS ENRIQUE SEARS Signed by LUIS ENRIQUE SEARS PT on 06/17/2025 at 8:18 AM * * * This document replaces document [id number] * * * Document text: Program_ID:[id number] Access Code: [email or web address] URL: [email or web address] Date: 06-17-2025 Prepared By: Luis Enrique Sears [...] weekly - 3 sets - 10 reps PROGRESS Observed: 06/17/2025 7:44 AM Status: COMPLETED Source: [facility] HNO ID: [id number] Author: LUIS ENRIQUE SEARS PT Service: ? [...] Goals for Episode of Care: established 04/06/25 [place] in home exercise program. MEETING Patient will [...] Patient to be seen for Therapeutic exercise (47181), Neuromuscular re-education (29968), Manual therapy (93397), Therapeutic activities (36935), Self-correction management (84340), Patient/Family/Caregiver Education, E-Stim Attended/TENS (08463) PLAN FOR NEXT VISIT: progress shoulder strengthening [...] Home Exercise Program Assigned: Current Home Program: [facility] Access Code: [email or web address] URL: [email or web address] Date: 06/17/2025 Prepared by: Luis Enrique Sears [...] Time : 826 Luis Enrique Sears PT PROGRESS Observed: 06/12/2025 1:22 PM Status: COMPLETED Source: [facility] HNO ID: [id number] Author: IVIS GARCÍA MD Service: ? 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 Encounter Diagnosis ICD-10-CM 1. DUB (dysfunctional uterine bleeding) N93.8 2. IUD (intrauterine device) in place Z97.5 Please see report under imaging tab. Ivis García MD June 12, 2025 1:22 PM CNOV Observed: 06/01/2025 2:00 PM Status: COMPLETED Source: [facility] Office Visit ([facility]) TEJADAMARICRUZ JONAS ([id number]) 1 F Date Time Provider Department 06/01/25 2:00 PM TINA POWER OBGYWM During your visit today, we recorded the following information about you: Blood pressure Weight 120/80 70.3 kg Tina Power MD 06/01/2025 2:13 PM Signed Heel Pricker offered: Patient declines. Maricruz Tejada is a [...] Living0 SAB0 IAB0 Ectopic0 Multiple0 Live Births0 Imaging Tech History LMP: 02/24/2025 (Exact Date), Having periods Age at Menarche: Age at First : Age at Menopause: Imaging Tech History Comments: Sexual Activity: Yes; Male Contraception: [...] discussed with the Patient or Patient's Authorized Clamp Carrier Operator. As applicable, any other physician, advance practice provider, medical student, or other health professional student that will be observing or involved in the sensitive examination for educational or training purposes was discussed with the Patient or Authorized Clamp Carrier Operator. The Patient or Authorized Clamp Carrier Operator has agreed to proceed with the sensitive examination. (Sensitive examination includes inspection and/or palpation of the breasts, pelvis, prostate and anorectal regions). EXAM: LMP 02/24/2025 GENERAL: pleasant, female in no apparent distress HEENT: Normocephalic and atraumatic CHEST: Normal inspiratory effort ABDOMEN: soft, non-tender, and no masses PELVIC: external genitalia normal, normal Bartholin's glands, urethra, Chaumont's glands, no vulvar lesions, no cervical lesions, [...] on exam today. Check pelvic US. Tina Power DO Medical Decision Making: Problems: Low: Acute, uncomplicated illness or injury Data: Unique test(s) ordered: 2 Medical Decision Making Level: 3 - Low Tina Power MD 06/01/2025 2:13 PM Edited Orders: PELVIC US WHI; Future Allergies As of Date: 06/01/2025 Noted Allergy Reaction CODEINE 07/03/2007 TRAMADOL 06/30/2014 9 - Itching 14 - Other: See Comments Comments: Dizziness Date Reviewed: 06/01/2025 Reviewed by: Vivian Taylor MA - Fully Assessed Reason for Visit: Follow Up [171] Cmt: confirmation Primary Visit Diagnosis: examination or test, negative result [Z32.02] Other Visit Diagnoses:DUB (dysfunctional uterine bleeding) [N93.8] IUD (intrauterine device) in place [Z97.5] Order(s):UA DIP,URINE HCG (POC) [3202608] Order #: [id number]. #:[id number] PELVIC US WHI [[id number]] Order #: [id number]: 1 FUTURE Prescriptions as of 06/01/2025 - DULoxetine (CYMBALTA) 40 mg cpDR Take 1 capsule by mouth once daily. - baclofen 10 mg tablet Take 1 tablet by mouth once daily as needed. - ondansetron (ZOFRAN) 4 mg tablet Take 1 tablet by mouth every 8 hours as needed. - metoprolol succinate ER (TOPROL XL) 100 mg Take 1.5 tablets by mouth once daily. - triamterene-hydroCHLOROthiazide (MAXZIDE) 75-50 mg per tablet Take [...] once daily. Problem List As Of Date 06/01/2025 Noted Resolved Tabor's fracture of base of [...] Decreased right shoulder range of motion [M25.6*04/06/2025 Disposition: Return for schedule pelvic US first available. Follow-up and Disposition History for Encounter Date Provider Department Center 06/01/2025 [id number] POWER [facility] Encounter Status:Closed by TINA POWER on 06/01/25 PROGRESS Observed: 06/01/2025 1:55 PM Status: COMPLETED Source: [facility] HNO ID: [id number] Author: TINA POWER MD Service: ? Author Type: Physician Type: Progress Notes Filed: 06/01/2025 14:13 Note Text: Heel Pricker offered: Patient declines. Maricruz Tejada is a [...] Living0 SAB0 IAB0 Ectopic0 Multiple0 Live Births0 Imaging Tech History LMP: 02/24/2025 (Exact Date), Having periods Age at Menarche: Age at First : Age at Menopause: Imaging Tech History Comments: Sexual Activity: Yes; Male Contraception: [...] discussed with the Patient or Patient's Authorized Clamp Carrier Operator. As applicable, any other physician, advance practice provider, medical student, or other health professional student that will be observing or involved in the sensitive examination for educational or training purposes was discussed with the Patient or Authorized Clamp Carrier Operator. The Patient or Authorized Clamp Carrier Operator has agreed to proceed with the sensitive examination. (Sensitive examination includes inspection and/or palpation of the breasts, pelvis, prostate and anorectal regions). EXAM: LMP 02/24/2025 GENERAL: pleasant, female in no apparent distress HEENT: Normocephalic and atraumatic CHEST: Normal inspiratory effort ABDOMEN: soft, non-tender, and no masses PELVIC: external genitalia normal, normal Bartholin's glands, urethra, Chaumont's glands, no vulvar lesions, no cervical lesions, [...] Medical Decision Making Level: 3 - Low PROGRESS Observed: 05/28/2025 8:30 AM Status: COMPLETED Source: [facility] ID: [id number] Author: RUTH MANNING APRN.FREELANCE RECRUITER Service: ? Author Type: Nurse Practitioner Type: [...] for migraine Informed Consent Consent Obtained: Written [place] Protocol A moment to CARE was completed [...] collected. Written Consent Obtained: Written LOT #: [id number] Expiration Date: Month: : 2026 Second vial: LOT #: [id number] Expiration Date: Month: Year: 2026 Injection Sites Left (Units) Left (Sites) Right (Units) Right (Sites) TOTAL (Units) Warehouse Selector 5 1 5 1 10 Procerus Units: [...] Use Dose Side effect Analgesic Hydrocodone/Acetaminophen (Vicodin, [place]) Tramadol (Ultram) Anti-Anxiety Buspirone (Buspar) Anti-Depressant and Antipsychotic Bupropion (Wellbutrin) Duloxetine (Cymbalta) Paroxetine (Paxil) Sertraline (Zoloft) Antiemetics Ondansetron Anti-Migraine Eletriptan (Relpax) Naratriptan (Amerge) Rizatriptan (Maxalt) Blood Pressure Lisinopril (Zestril) Metoprolol (Lopressor,Toprol XL) Muscle Relaxer Baclofen (Lioresal) Other Medications Dextroamphetamine (Adderal) Prednisone Over the Counter Medications Acetaminophen (Tylenol) Acetaminophen/Aspirin/Caffeine (Excedrin, Goody?s) Aspirin Ibuprofen (Advil, Motrin) Naproxen sodium (Aleve) Ruth Manning APRN.CNP CNOV Observed: 05/28/2025 8:30 AM Status: COMPLETED Source: [facility] Office Visit ([facility]) MARICRUZ TEJADA ([id number]) 1 F Date Time Provider Department 05/28/25 8:30 AM RUTH MANNING During your visit today, we recorded the following information about you: Pulse Blood pressure Weight 76/minute 134/89 69.9 kg Ruth Manning APRN.CNP 05/28/2025 9:02 AM Signed [facility] Follow-up [...] for migraine Informed Consent Consent Obtained: Written [place] Protocol A moment to CARE was completed [...] collected. Written Consent Obtained: Written LOT #: [id number] Expiration Date: Month: 9 Year: 2026 Second vial: LOT #: [id number] Expiration Date: Month: 9 Year: 2026 Injection Sites Left (Units) Left (Sites) Right (Units) Right (Sites) TOTAL (Units) Warehouse Selector 5 1 5 1 10 Procerus Units: [...] Use Dose Side effect Analgesic Hydrocodone/Acetaminophen (Vicodin, [place]) Tramadol (Ultram) Anti-Anxiety Buspirone (Buspar) Anti-Depressant and Antipsychotic Bupropion (Wellbutrin) Duloxetine (Cymbalta) Paroxetine (Paxil) Sertraline (Zoloft) Antiemetics Ondansetron Anti-Migraine Eletriptan (Relpax) Naratriptan (Amerge) Rizatriptan (Maxalt) Blood Pressure Lisinopril (Zestril) Metoprolol (Lopressor,Toprol XL) Muscle Relaxer Baclofen (Lioresal) Other Medications Dextroamphetamine (Adderal) Prednisone Over the Counter Medications Acetaminophen (Tylenol) Acetaminophen/Aspirin/Caffeine (Excedrin, Goody?s) Aspirin Ibuprofen (Advil, Motrin) Naproxen sodium (Aleve) Ruth Manning APRN.Ruth Brandon APRN.CNP 05/28/2025 8:46 AM Signed AFTER VISIT CARE BOTOX INJECTION While [...] and maximize the effectiveness of your pain relief? -HYDRATION Hydration is important to help nourish [...] 3 months for your next Botox Injection Referring Provider: PATIENCE MATUTE [8031] Allergies As of Date: 05/28/2025 Noted Allergy Reaction CODEINE 07/03/2007 TRAMADOL 06/30/2014 9 - Itching 14 - Other: See Comments Comments: Dizziness Date Reviewed: 05/28/2025 Reviewed by: Ruth Manning APRN.FREELANCE RECRUITER - Fully Assessed Reason for Visit: Botox Injection [373] Primary Visit Diagnosis:Chronic migraine without aura, intractable, without status migrainosus [G43.719] Order(s):[] onabotulinum toxin type A 200 Units injection (BOTOX)Disp: Rfl: Prescriptions as of 05/28/2025 - DULoxetine (CYMBALTA) 40 mg cpDR Take 1 capsule by mouth once daily. - baclofen 10 mg tablet Take 1 tablet by mouth once daily as needed. - ondansetron (ZOFRAN) 4 mg tablet Take 1 tablet by mouth every 8 hours as needed. - metoprolol succinate ER (TOPROL XL) 100 mg Take 1.5 tablets by mouth once daily. - triamterene-hydroCHLOROthiazide (MAXZIDE) 75-50 mg per tablet Take [...] once daily. Problem List As Of Date 05/28/2025 Noted Resolved Tabor's fracture of base of [...] Decreased right shoulder range of motion [M25.6*04/06/2025 Other instructions from your clinician: AFTER VISIT CARE BOTOX INJECTION While these [...] and maximize the effectiveness of your pain relief? -HYDRATION Hydration is important to help nourish [...] 3 months for your next Botox Injection Prescriptions ordered this encounter Disp Refills Start End ONABOTULINUMTOXINA 200 UNIT SOLUTION* 05/28/2025 05/28/2025 Route: IM Disposition: Return in about 3 months (around 08/28/2025) for Botox. Follow-up and Disposition History for Encounter Date Provider Department Center 05/28/2025 [id number]-UMVOXXOOF, KATHER*[facility] Encounter Status:Closed by RUTH MANNING on 05/28/25 BACTERIA UR CULT Observed: 05/27/2025 6:23 PM Status: F Source: [facility] ORGANISM ID: 1 >=100,000 CFU/ml Normal urogenital mindy Performed By: #### 630-4 ### # [facility] CLIA [id number] [address] [place] [address] CNOV Observed: 05/27/2025 6:00 PM Status: COMPLETED Source: [facility] Office Visit ([facility]) MARICRUZ TEJADA ([id number]) 1 F Date Time Provider Department 05/27/25 6:00 PM [facility] your visit today, we recorded the following information about you: Pulse Respiration Blood pressure Weight 71/minute 12/minute 128/90 70 kg Ember Cr APRN.FREELANCE RECRUITER 05/27/2025 6:28 PM Signed This is a [...] five days. - No suicidal ideation. - [place] nervous, anxious, or on edge for 2-3 [...] scheduled or as needed for worsening/no improvement. Ember Cr APRN.FREELANCE RECRUITER Recording using [employer] software for draft documentation of the visit was discussed with the patient/authorized auto service representative; all questions welcomed and answered. Patient/authorized auto service representative agreed to proceed Allergies As of Date: 05/27/2025 Noted Allergy Reaction CODEINE 07/03/2007 TRAMADOL 06/30/2014 9 - Itching 14 - Other: See Comments Comments: Dizziness Date Reviewed: 05/27/2025 Reviewed by: Ember Cr APRN.FREELANCE RECRUITER - Fully Assessed Reason for Visit: Physical [83] Primary Visit Diagnosis:Depression, unspecified depression type [F32.A] Other Visit Diagnoses:OCTAVIO (generalized anxiety disorder) [F41.1] Menstrual-related mood disorder [F06.30] Brain fog [R41.89] Urinary frequency [R35.0] Suprapubic abdominal pain [R10.2] Flank pain [R10.9] Screening for depression [Z13.31] Encounter for screening examination for other mental health and behavioral disorders [Z13.39] Order(s):UA DIP, URINE (POC) [] Order #: [id number]. #:[id number] DEPRESSION SCREENING [] Order #: [id number]: 1 ANXIETY SCREENING [] Order #: [id number]: 1 DULoxetine (CYMBALTA) 40 mg cpDRTake 1 capsule by mouth once daily.Disp: 30 capsuleRfl: 2 BACTERIAL CULTURE, URINE [SQURCUL] Order #: [id number]. #:[id number] Prescriptions as of 05/27/2025 - DULoxetine (CYMBALTA) 40 mg cpDR Take 1 capsule by mouth once daily. - baclofen 10 mg tablet Take 1 tablet by mouth once daily as needed. - ondansetron (ZOFRAN) 4 mg tablet Take 1 tablet by mouth every 8 hours as needed. - metoprolol succinate ER (TOPROL XL) 100 mg Take 1.5 tablets by mouth once daily. - triamterene-hydroCHLOROthiazide (MAXZIDE) 75-50 mg per tablet Take [...] once daily. - Norethindrone Acet-Ethinyl Est (JUNEL 12/08, ,) 1-20 mg-mcg per tablet (Discontinued) Take 1 tablet by mouth once daily. Facility-Administered Medications as of 05/27/2025 - onabotulinum toxin type A 200 Units injection (BOTOX) Problem List As Of Date 05/27/2025 Noted Resolved Tabor's fracture of base of [...] Decreased right shoulder range of motion [M25.6*04/06/2025 Prescriptions ordered this encounter Disp Refills Start End DULOXETINE 40 MG CAPSULE,DELAYED REL* 30 c* 2 05/27/2025 05/27/2025 Route: PO Sig: Take 1 capsule by mouth once daily. DULOXETINE 40 MG CAPSULE,DELAYED REL* 30 c* 2 05/27/2025 08/25/2025 Route: PO Sig: Take 1 capsule by mouth once daily. Medications Discontinued During This Encounter Prescriptions - DULoxetine (CYMBALTA) 30 mg capsule (Discontinued) Take 1 capsule by mouth once daily. - DULoxetine (CYMBALTA) 40 mg cpDR (Discontinued) Take 1 capsule by mouth once daily. Level of Service: OFFICE/OUTPATIENT ESTABLISHED LOW MDM 20 MIN [68277] Additional E/M codes: VISIT CPLX INHERENT EANDM ASSOC WITH MED * Disposition: Return in about 6 weeks (around 07/08/2025) for mood/med changes. Follow-up and Disposition History for Encounter Date Provider Department Center 05/27/2025 [id number] CR*FAMPWS Alvaro [facility] Encounter Status:Closed by EMBER CR on 05/27/25 PROGRESS Observed: 05/27/2025 5:52 PM Status: COMPLETED Source: [facility] ID: [id number] Author: EMBER CR APRN.FREELANCE RECRUITER Service: ? Author Type: Nurse Practitioner Type: [...] five days. - No suicidal ideation. - [place] nervous, anxious, or on edge for 2-3 [...] scheduled or as needed for worsening/no improvement. Ember Cr APRN.FREELANCE RECRUITER Recording using Versaworks software for draft documentation of the visit was discussed with the patient/authorized auto service representative; all questions welcomed and answered. Patient/authorized auto service representative agreed to proceed PROGRESS Observed: 05/19/2025 9:21 AM Status: COMPLETED Source: [facility] HNO ID: [id number] Author: DAVIDSON MCARTHUR MD Service: ? Author Type: Physician [...] proceed. Return for follow-up in 6 weeks. Davidson Mcarthur MD CNOV Observed: 05/19/2025 9:00 AM Status: COMPLETED Source: [facility] Office Visit (AGHWW1) TEJADAMARICRUZ JONAS ([id number]) 1 F Date Time Provider Department 05/19/25 9:00 AM DAVIDSON MCARTHUR AGHWW1 During your visit today, we recorded the following information about you: Respiration Weight Height 16/minute 71.7 kg 1.575 m Davidson Mcarthur MD 05/19/2025 9:23 AM Signed History: [...] proceed. Return for follow-up in 6 weeks. Davidson Mcarthur MD Referring Provider: SELF [200] Allergies As of Date: 05/19/2025 Noted Allergy Reaction CODEINE 07/03/2007 TRAMADOL 06/30/2014 9 - Itching 14 - Other: See Comments Comments: Dizziness Date Reviewed: 05/19/2025 Reviewed by: Steffen Chang Tech - Fully Assessed Reason for Visit: Post Op [174] Follow Up [171] Primary Visit Diagnosis:Status post labral repair of shoulder [Z98.890] Order(s):CONSULT TO PHYSICAL THERAPY [9092] Order #: [id number]: 1 FUTURE Prescriptions as of 05/19/2025 - [...] 1.5 tablets by mouth once daily. - triamterene-hydroCHLOROthiazide (MAXZIDE) 75-50 mg per tablet Take [...] range of motion [M25.6*04/06/2025 Encounter Status:Closed by DAVIDSON MCARTHUR on 05/19/25 PROGRESS Observed: 05/15/2025 8:36 AM Status: COMPLETED Source: [facility] HNO ID: [id number] Author: HAYLEY LOZOYA PA-C Service: ? Author Type: Physician Signal Supervisor Type: Progress Notes Filed: 05/15/2025 08:41 Note Text: This note was created using TransitScreenter. Subjective Maricruz Tejada is a 19 year old female. Patient is a 19-year-old female who complains of worsening congestion, sinus pressure, ear pain, sore throat and cough that she has been experiencing for the past 1 week. Patient reports no fever, chills or myalgia. 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 Subjective Maricruz Tejada is a 19 year old female. Patient is a 19-year-old female who complains of worsening congestion, sinus pressure, ear pain, sore throat and cough that she has been experiencing for the past 1 week. Patient reports no fever, chills or myalgia. 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 - triamterene-hydroCHLOROthiazide (MAXZIDE) 75-50 mg per tablet Take [...] once daily. Problem List As Of Date 05/15/2025 Noted Resolved Tabor's fracture of base of [...] Decreased right shoulder range of motion [M25.6*04/06/2025 Prescriptions ordered this encounter Disp Refills Start End AMOXICILLIN 875 MG-POTASSIUM CLAVULA* 20 t* 0 05/15/2025 05/25/2025 Route: PO Sig: Take 1 tablet by mouth two times a day for 10 days. BENZONATATE 100 MG CAPSULE 21 c* 0 05/15/2025 05/22/2025 Route: PO Sig: Take 1 capsule by mouth three times a day as needed for cough for up to 7 days. Level of Service: OFFICE/OUTPATIENT ESTABLISHED MOD MDM 30 MIN [09326] Encounter Status:Closed by CLUTTER, HAYLEY on 05/15/25 THERAPY NT Observed: 05/05/2025 2:14 PM Status: COMPLETED Source: [facility] HNO ID: [id number] Author: JAY MONROY PTA Service: ? Author Type: Regional Project Manager Type: Therapy (PT/OT/Speech/Resp) Filed: 05/05/2025 14:14 Note Text: Program_ID:[id number] Access Code: [email or web address] URL: [email or web address]://[email or web address]/ Date: 05-05-2025 Prepared By: Luis Enrique Sears [...] reps - Seated Shoulder Flexion AAROM with Neela Behind - 1 x daily - 7 x weekly - 3 sets - 10 reps - Seated Shoulder Scaption AAROM with Neela at Side - 1 x daily - 7 x weekly - 3 sets - 10 reps PROGRESS Observed: 05/05/2025 1:38 PM Status: COMPLETED Source: [facility] HNO ID: [id number] Author: AJY MONROY PTA Service: ? Author Type: Regional Project Manager Type: Progress Notes Filed: 05/05/2025 14:16 Note [...] shoulder ROM, did have some discomfort during neela elevation in scapular plan. Pt is progressing [...] arm - planning to reach out via Aktino to let him know of this. Patient [...] cross body adduction 1x10 5 hold 5: neela flexion x2' 6: updated and reviewed HEP, [...] : 1338 Session Stop Time : 1400 Jay Monroy PTA CNTHERAPY Observed: 05/05/2025 1:30 PM Status: COMPLETED Source: [facility] OT/PT/Speech Visit (AKPTG) MARICRUZ TEJADA ([id number]) 1 F Date Time Provider Department 05/05/25 1:30 PM JAY MONROY Date Time Provider Department Center 05/05/2025 1:30 PM [id number] MONROYG [facility] Reason for Visit: Physical [...] 1.5 tablets by mouth once daily. - triamterene-hydroCHLOROthiazide (MAXZIDE) 75-50 mg per tablet Take [...] Take 1 tablet by mouth once daily. Hand Mixer: Therapy (PT/OT/Speech/Resp) ID: [id number] 05/05/2025 2:14 PM Author: JAY MONROY Signed by JAY MONROY PROFESSOR OF ECONOMICS on 05/05/2025 at 2:14 PM Document text: Program_ID:[id number] Access Code: [email or web address] URL: [email or web address] Date: 05-05-2025 Prepared By: Luis Enrique Sears [...] reps - Seated Shoulder Flexion AAROM with Neela Behind - 1 x daily - 7 x weekly - 3 sets - 10 reps - Seated Shoulder Scaption AAROM with Neela at Side - 1 x daily - 7 x weekly - 3 sets - 10 reps CNPN Observed: 04/28/2025 12:00 AM Status: COMPLETED Source: [facility] Telephone (AKPTG) MALLORYMARICRUZ ([id number]) 1 F Date Time Provider Department 04/28/25 LUIS ENRIQUE SEARS AKPTG During your visit today, we recorded the [...] 1.5 tablets by mouth once daily. - triamterene-hydroCHLOROthiazide (MAXZIDE) 75-50 mg per tablet Take [...] Status:Closed by LUIS ENRIQUE SEARS on 04/28/25 CNCO Observed: 04/28/2025 12:00 AM Status: COM PLETED Source: [facility] Letter Text CNCO Observed: 04/27/2025 12:00 AM Status: COM PLETED Source: [facility] Letter Text PROGRESS Observed: 04/21/2025 11:29 AM Status: COMPLETED Source: [facility] HNO ID: [id number] Author: TAYLER DUNCAN APRN.FREELANCE RECRUITER Service: ? Author Type: Nurse Practitioner Type: [...] to ER with red flag symptoms Tayler Duncan, ZOOGLER.FREELANCE RECRUITER Prescription instructions reviewed with patient as applicable. [...] Medical Decision Making Level: 3 - Low CNOV Observed: 04/21/2025 11:20 AM Status: COMPLETED Source: [facility] MARI[facility] TEJADA ([id number]) 1 F Date Time Provider Department 04/21/25 11:20 AM TAYLER DUNCAN During your visit today, we recorded the following information about you: Pulse Respiration Blood pressure Weight 87/minute 18/minute 122/80 71.2 kg Podlogar TaylerTEE.MAYA 04/21/2025 11:44 AM Signed 04/21/2025 Patient presents [...] to ER with red flag symptoms Tayler Podlogsarah, ZOOGLER.FREELANCE RECRUITER Prescription instructions reviewed with patient as applicable. [...] Medical Decision Making Level: 3 - Low Allergies As of Date: 04/21/2025 Noted Allergy Reaction CODEINE 07/03/2007 TRAMADOL 06/30/2014 9 - Itching 14 - Other: See Comments Comments: Dizziness Date Reviewed: 04/21/2025 Reviewed by: Estela Layton LPN - Fully Assessed Reason for Visit: Rash [1087] Cmt: To neck and trunk where right arm sling is, has been for 4-5 days Primary Visit Diagnosis:Skin eruption [R21] Order(s):triamcinolone acetonide (KENALOG) 0.1 % creamApply to affected area two times a day for 14 days.Disp: 30 gRfl: 1 Prescriptions as of 04/21/2025 - triamcinolone acetonide (KENALOG) 0.1 % cream [...] 1.5 tablets by mouth once daily. - triamterene-hydroCHLOROthiazide (MAXZIDE) 75-50 mg per tablet Take [...] Decreased right shoulder range of motion [M25.6*04/06/2025 Prescriptions ordered this encounter Disp Refills Start End TRIAMCINOLONE ACETONIDE 0.1 % TOPICA* 30 g 1 04/21/2025 05/05/2025 Route: TOP Sig: Apply to affected area two times a day for 14 days. Encounter Status:Closed by MARCKLOGTAYLER HARRIS on 04/21/25 CHAYO Observed: 04/21/2025 12:00 AM Status: COMPLETED Source: [facility] Telephone ([email or web address]) MARICRUZ TEJADA ([id number]) 1 F Date Time Provider Department 04/21/25 CELSO FREIRE [email or web address] During your visit today, we recorded the following information about you: Blanca Suresh RN 04/21/2025 10:58 AM Signed Patient calling [...] provider for today per pt request. Blanca Suresh RN Allergies As of Date: 04/21/2025 Noted Allergy Reaction CODEINE 07/03/2007 TRAMADOL 06/30/2014 9 - Itching 14 - Other: See Comments Comments: Dizziness Date Reviewed: 04/16/2025 Reviewed by: Little Cheng APRN.FREELANCE RECRUITER - Fully Assessed Reason for Visit: Rash [...] 1.5 tablets by mouth once daily. - triamterene-hydroCHLOROthiazide (MAXZIDE) 75-50 mg per tablet Take [...] of motion [M25.6*04/06/2025 Encounter Status:Closed by BLANCA SURESH on 04/21/25 PROGRESS Observed: 04/20/2025 4:07 PM Status: COMPLETED Source: [facility] HNO ID: [id number] Author: JAY MONROY PTA Service: ? Author Type: Regional Project Manager Type: Progress Notes Filed: 04/20/2025 16:40 Note [...] : 1408 Session Stop Time : 1431 Jay Monroy PTA CNTHERAPY Observed: 04/20/2025 4:00 PM Status: COMPLETED Source: [facility] OT/PT/Speech Visit (AKPTG) MARICRUZ TEJADA ([id number]) 1 F Date Time Provider Department 04/20/25 4:00 PM JAY MONROYG Date Time Provider Department Center 04/20/2025 4:00 PM [id number] MONROYG Ivet Hernandez Reason for Visit: Physical Therapy [503] Primary Visit Diagnosis:Chronic right shoulder pain [M25.511, G89.29] Other Visit Diagnoses:Weakness of right upper extremity [R29.898] Decreased right shoulder range of motion [M25.611] Allergies As of Date: 04/20/2025 Noted Allergy Reaction CODEINE 07/03/2007 TRAMADOL 06/30/2014 9 - Itching 14 - Other: See Comments Comments: Dizziness Date Reviewed: 04/16/2025 Reviewed by: Little Cheng APRN.FREELANCE RECRUITER - Fully Assessed Prescriptions as of 04/20/2025 [...] 1.5 tablets by mouth once daily. - triamterene-hydroCHLOROthiazide (MAXZIDE) 75-50 mg per tablet Take 1 tablet by mouth once daily.- levonorgestrel (MIRENA) 21 mcg/24hr (up to 8 yrs) 52 mg IUD 1 Each by INTRAUTERINE route as directed. - lisinopril (ZESTRIL) 20 mg tablet Take 1 tablet by mouth once daily.- tretinoin (RETIN-A) 0.025 % topical cream Mix 50/50 with moisturizer and apply to the affected areas of the face every night. - Azelaic Acid 15 % gel Apply a thin layer to the full face once daily in the morning - PARoxetine (PAXIL) 10 mg tablet Take 1 tablet by mouth once daily.- ubrogepant (UBRELVY) 100 mg tablet Take 1 tab at migraine onset. May repeat once in 2 hours as needed. - Cholecalciferol, Vitamin D3, 50 mcg (2,000 unit) cap Take 1 capsule by mouth once daily. - Norethindrone Acet-Ethinyl Est (,) 1-20 mg-mcg per tablet (Discontinued) Take 1 tablet by mouth once daily. CNOV Observed: 04/16/2025 2:20 PM Status: COMPLETED Source: [facility] MARICRUZ TEJADA ([id number]) 1 F Date Time Provider Department 04/16/25 2:20 PM LITTLE CHENG During your visit today, we recorded the following information about you: Pulse Respiration Blood pressure Weight 84/minute 16/minute 118/82 69.9 kg Little Cheng APRN.FREELANCE RECRUITER 04/16/2025 3:34 PM Signed Chief Complaint Patient [...] mouth once daily. [DISCONTINUED] Norethindrone Acet-Ethinyl Est (JUNEL 12/08, ,) 1-20 [...] done BP Controlled (<130/80) Never done Covid-19 Vaccine( season) Never done [...] of the patient and have reviewed the TARIQ note. My fisher findings agree with above documentation. Other additions or changes: As edited Signature: Little Cheng Date: 04/16/2025 Time: 3:33 PM Allergies As of Date: 04/16/2025 Noted Allergy Reaction CODEINE 07/03/2007 TRAMADOL 06/30/2014 9 - Itching 14 - Other: See Comments Comments: Dizziness Date Reviewed: 04/16/2025 Reviewed by: Little Cheng APRN.FREELANCE RECRUITER - Fully Assessed Reason for Visit: Follow Up [171] Cmt: Discuss decreasing medication Primary Visit Diagnosis:Brain fog [R41.89] Other Visit Diagnosis:Depression, unspecified depression type [F32.A] Order(s):DULoxetine (CYMBALTA) 30 mg capsuleTake 1 capsule by mouth once daily.Disp: 90 capsuleRfl: 0 baclofen 10 mg tabletTake 1 tablet by mouth once daily as needed.Disp: 90 tabletRfl: 1 Prescriptions as of 04/16/2025 - DULoxetine (CYMBALTA) 30 mg capsule Take 1 capsule by mouth once daily. - baclofen 10 mg tablet Take 1 tablet by mouth once daily as needed. - ondansetron (ZOFRAN) 4 mg tablet Take 1 tablet by mouth every 8 hours as needed. - metoprolol succinate ER (TOPROL XL) 100 mg Take 1.5 tablets by mouth once daily. - triamterene-hydroCHLOROthiazide (MAXZIDE) 75-50 mg per tablet Take [...] once daily. Problem List As Of Date 04/16/2025 Noted Resolved Tabor's fracture of base of [...] Decreased right shoulder range of motion [M25.6*04/06/2025 Prescriptions ordered this encounter Disp Refills Start End DULOXETINE 30 MG CAPSULE,DELAYED REL* 90 c* 0 04/16/2025 07/15/2025 Route: PO Sig: Take 1 capsule by mouth once daily. BACLOFEN 10 MG TABLET 90 t* 1 04/16/2025 10/13/2025 Route: PO Sig: Take 1 tablet by mouth once daily as needed. Medications Discontinued During This Encounter Prescriptions - DULoxetine (CYMBALTA) 60 mg capsule (Discontinued) Take 1 capsule by mouth once daily. Level of Service: OFFICE/OUTPATIENT ESTABLISHED LOW [facility] 20 MIN [08531] Encounter Status:Closed by LITTLE CHENG on 04/16/25 PROGRESS Observed: 04/16/2025 2:20 PM Status: COMPLETED Source: [facility] ID: [id number] Author: LITTLE CHENG APRN.FREELANCE RECRUITER Service: ? Author Type: Nurse Practitioner Type: [...] of the patient and have reviewed the TARIQ note. My fisher findings agree with above documentation. Other additions or changes: As edited Signature: Little Cheng Date: 04/16/2025 Time: 3:33 PM PROGRESS Observed: 04/14/2025 1:49 PM Status: COMPLETED Source: [facility] HNO ID: [id number] Author: DAVIDSON MCARTHUR MD Service: ? Author Type: Physician [...] difficulty. Return for follow-up in one month. Davidson Mcarthur MD CNOV Observed: 04/14/2025 1:00 PM Status: COMPLETED Source: [facility] Office Visit (AGHWW1) MALLORYMARICRUZ ([id number]) 1 F Date Time Provider Department 04/14/25 1:00 PM DAVIDSON MCARTHUR AGHWW1 During your visit today, we recorded the following information about you: Respiration Weight Height 18/minute 71.2 kg 1.575 m Davidson Mcarthur MD 04/14/2025 1:52 PM Signed History: [...] difficulty. Return for follow-up in one month. Davidson Mcarthur MD Allergies As of Date: 04/14/2025 [...] 1.5 tablets by mouth once daily. - triamterene-hydroCHLOROthiazide (MAXZIDE) 75-50 mg per tablet Take [...] motion [M25.6*04/06/2025 Letter Text Encounter Status:Closed by DAVIDSON MCARTHUR on 04/14/25 THERAPY NT Observed: 04/06/2025 11:38 AM Status: COMPLETED Source: [facility] HNO ID: [id number] Author: LUIS ENRIQUE SEARS PT Service: Physical Therapy Author Type: Physical Therapist Type: Therapy (PT/OT/Speech/Resp) Filed: 04/06/2025 11:38 Note Text: Program_ID:[id number] Access Code: [email or web address] URL: [email or web address] Date: 04-06-2025 Prepared By: Luis Enrique Sears [...] weekly - 2 sets - 10 reps CNTHERAPY Observed: 04/06/2025 11:00 AM Status: COMPLETED Source: [facility] OT/PT/Speech Visit (AKPTG) MARICRUZ [id number]) 1 F Date Time Provider Department 04/06/25 11:00 AM LUIS ENRIQUE SEARS Date Time Provider Department Center 04/06/2025 11:00 AM [id number] ENRIQUE SEARS [facility] Reason for Visit: PT Eval [747] Primary Visit Diagnosis:Chronic right shoulder pain [M25.511, G89.29] Other Visit Diagnoses:Weakness of right upper extremity [R29.898] Decreased right shoulder range of motion [M25.611] Allergies As of Date: 04/06/2025 Noted Allergy Reaction CODEINE 07/03/2007 TRAMADOL 06/30/2014 9 - Itching 14 - Other: See Comments Comments: Dizziness Date Reviewed: 04/03/2025 Reviewed by: Shreyas Rios RN - Fully Assessed Prescriptions as of 04/06/2025 - oxyCODONE IR (ROXICODONE) 5 mg immediate release tablet 1 by mouth every 6 hours as needed for pain. - ondansetron (ZOFRAN) 4 mg tablet Take 1 tablet by mouth every 8 hours as needed. - metoprolol succinate ER (TOPROL XL) 100 mg Take 1.5 tablets by mouth once daily. - triamterene-hydroCHLOROthiazide (MAXZIDE) 75-50 mg per tablet Take [...] Take 1 tablet by mouth once daily. Hand Mixer: Therapy (PT/OT/Speech/Resp) ID: [id number] 04/06/2025 11:38 AM Author: LUIS ENRIQUE SEARS Signed by LUIS ENRIQUE SEARS PT on 04/06/2025 at 11:38 AM Document text: Program_ID:[id number] Access Code: [email or web address] URL: [email or web address] Date: 04-06-2025 Prepared By: Luis Enrique Sears [...] weekly - 2 sets - 10 reps PROGRESS Observed: 04/06/2025 10:57 AM Status: COMPLETED Source: [facility] HNO ID: [id number] Author: LUIS ENRIQUE SEARS, PT Service: ? Author Type: Physical Therapist [...] Goals for Episode of Care: established 04/06/25 [place] in home exercise program. 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 Self-Retirement Management: 1: Patient and caregiver educated on [...] assigned home program. Access Code: [email or web address] URL: [email or web address] Date: 04/06/2025 Prepared by: Luis Enrique Sears [...] Time : 1145 Luis Enrique Sears PT NURSING PROG Observed: 04/03/2025 3:19 PM Status: COMPLETED Source: [facility] HNO ID: [id number] Author: MANDA MARION RN Service: ? Author Type: Registered Nurse Type: Nursing Progress Note Filed: 04/03/2025 15:20 Note Text: Patient discharged home in stable condition. ANES POSTPROC EVAL Observed: 04/03/2025 3:13 PM Status: COMPLETED Source: [facility] HNO ID: [id number] Author: ZOEY CALLEJAS MD Service: Anesthesiology Author Type: Anesthesiologist Type: Anesthesia Postprocedure Evaluation Filed: 04/03/2025 15:13 Note Text: POST ANESTHESIA EVALUATION NOTE : 2005 Procedure Summary Date: 04/03/25 Room / Location: [facility] / [facility] Anesthesia Start: 1228 Anesthesia Stop: 1343 Procedure: SHOULDER ARTHROSCOPY W/ REPAIR SLAP LESION (slap repair) (Right: Shoulder) Diagnosis: Superior glenoid labrum lesion of right shoulder, initial encounter (Superior glenoid labrum lesion of right shoulder, initial encounter [S43.431A]) Surgeons: Davidson Mcarthur MD Responsible Provider: Eber Adam MD [...] April 03, 2025 TIME: 3:13 PM CSN: [id number] NURSING PROG Observed: 04/03/2025 2:06 PM Status: COMPLETED Source: [facility] HNO ID: [id number] Author: MANDA MARION RN Service: ? Author Type: Registered Nurse Type: Nursing Progress Note Filed: 04/03/2025 14:07 Note Text: Patients mother Radha called and updated. BRIEF OP NOT Observed: 04/03/2025 1:31 PM Status: COMPLETED Source: [facility] HNO ID: [id number] Author: DAVIDSON MCARTHUR MD Service: Orthopaedic Surgery Author Type: Physician Type: Brief Op Note Filed: 04/03/2025 13:32 Note Text: BRIEF OPERATIVE / PROCEDURE NOTE SHOULDER ARTHROSCOPY SLAP Repair LOG ID: [id number] Surgery/Procedure Date: 04/03/2025 Surgeon(s)/Proceduralist(s) and Signal Supervisor(s): Surgeons and Role: * Davidson Mcarthur MD - Primary * Delgado Troncoso [...] minimal Specimens: None sent Complications: None SIGNATURE: Davidson Mcarthur MD PATIENT NAME: Maricruz Tejada DATE: April 03, 2025 TIME: 1:31 PM PAGER/CONTACT #: [email or web address] PROCEDURE NOTE Observed: 04/03/2025 12:55 PM Status: COMPLETED Source: [facility] HNO ID: [id number] Author: KAYLA BARNES APRN.CRNA Service: Anesthesiology Author Type: Nurse System Support Analyst Type: Anesthesia Procedure Notes Filed: 04/03/2025 12:56 Note Text: ANESTHESIOLOGY PROCEDURE NOTE Airway General Information Procedure Start Time/Medication Administration: 04/03/2025 12:36 PM Procedure End Time: 04/03/2025 12:37 PM Patient location during procedure: OR Consent Obtained: Yes Patient identity confirmed: arm band Staffing Anesthesiologist: Zoey Callejas MD JOURNAL BOX INSPECTOR: Kayla Barnes APRN.JOURNAL BOX INSPECTOR Performed by: MOIRA Indications and Patient Condition [...] esophageal intubation: no Airway not difficult SIGNATURE: Kayla Barnes APRN.JOURNAL BOX INSPECTOR PATIENT NAME: Maricruz Tejada DATE: April 03, 2025 TIME: 12:55 PM CSN: [id number] OPERATIVE NO Observed: 04/03/2025 12:27 PM Status: COMPLETED Source: [facility] HNO ID: [id number] Author: DAVIDSON MCARTHUR MD Service: Orthopaedic Surgery Author Type: Physician Type: Operative Report Filed: 04/03/2025 13:35 Note Text: [place] [id number] OPERATIVE/PROCEDURE REPORT LOG ID: [id number] SURGERY/PROCEDURE DATE: 04/03/2025 INCISION/PROCEDURE START TIME: 12:57 PM INCISION CLOSE/PROCEDURE END TIME: Name: Maricruz Tejada Date: April 03, 2025 Attending: Davidson Mcarthur MD; Delgado Troncoso MD OPERATIVE REPORT HISTORY: Maricruz Tejada comes in today [...] right shoulder, arthroscopic superior labral repair SURGEON: Davidson Mcarthur MD CO-SURGEON: Delgado Troncoso MD ANESTHESIA: General endotracheal with interscalene block. FLUIDS GIVEN: Crystalloids. SPECIAL MEDICATIONS: Ancef COMPLICATIONS: None. OPERATIVE REPORT No physician assistant surgery or qualified resident was available. Dr. Troncoso [...] wear and fraying was not detached from the glenoid. Knotless Arthrex Fibertacks were used for the repair. Rail Detector Car Operator hole is drill first prior to placing the anchor and setting the knot. The shoulder was irrigated, and drained. The portals were closed using 3-0 A sterile dry dressing was placed to the right shoulder and The right upper extremity was placed in a sling. General endotracheal anesthesia was reversed and patient was taken to the recovery room in stable condition. Davidson Mcarthur MD April 03, 2025 ANES PROCEDURE NOTE Observed: 04/03/2025 11:32 AM Status: COMPLETED Source: [facility] HNO ID: [id number] Author: EBER ADAM MD Service: Anesthesiology Author [...] April 03, 2025 TIME: 11:32 AM CSN: [id number] ANES PRE-OP Observed: 04/03/2025 10:14 AM Status: COMPLETED Source: [facility] HNO ID: [id number] Author: EBER ADAM MD Service: Anesthesiology Author Type: Anesthesiologist Type: Anesthesia Preprocedure Evaluation Filed: 04/03/2025 12:36 Note Text: ANESTHESIOLOGY DAY OF SURGERY NOTE : 2005 Procedure Information Date/Time: 04/03/25 1140 Procedure: SHOULDER ARTHROSCOPY W/ REPAIR SLAP LESION (slap repair) (Right: Shoulder) Location: [place] [address] / [facility] Surgeons: Davidson Mcarthur MD Estimated body mass index is [...] and consent discussed: yes. Patient / Responsible Alliance Party agrees to proceed: yes Patient / Surrogate agrees to blood products: blood products not planned Vitals Value Taken Time BP 127/86 04/03/25 0959 Pulse 95 04/03/2559 Resp 16 04/03/25958 Temp 36.4 ?C (97.5 ?F) 04/03/25 09 SpO2 99 % 04/03/25958 Facility-Administered Medications as of 04/03/2025 Medication Dose [...] April 03, 2025 TIME: 10:14 AM CSN: [id number] HCG PREG UR QL Collected: 10:02 AM Status: F Source: [facility] Order Comment: Specimen Type : URINE SPECIMEN Ordering Facility[facility] Address: [address] [place] [address] TYPE CODE TESTS RESULT OUT OF RANGE REFERENCE UNITS LAB 2106-3(LOINC) HCG Preg Ur Ql Negative Negative Result Comment: This test is intended to aid in the early detection of . Very dilute urine samples, as indicated by a low specific gravity, may not contain auto service representative levels of hCG. This test detects intact hCG only. This test does not reliably detect hCG degradation products, including free-beta subunit and beta- core fragment. Therefore, this test may show reduced [...] presumptive diagnosis for . Performed By: #### 2106-3 ## ## [facility] CLIA [id number] [address] [place] [address] [place] PROGRESS Observed: 04/01/2025 12:40 PM Status: COMPLETED [facility] [id number] Author: EMBER CR APRN.FREELANCE RECRUITER Service: ? Author Type: Nurse Practitioner Type: [...] sunday - Provided educational material from the [facility] on POTS management and treatment. - Patient to follow up with golf cart repairer in July; consider repeat Zio heart monitor [...] Progress Patient progress: stable Recording using ambient [employer] software for draft documentation of the visit was discussed with the patient/authorized auto service representative; all questions welcomed and answered. Patient/authorized auto service representative agreed to proceed Ember Cr APRN.FREELANCE RECRUITER CNOV Observed: 04/01/2025 12:40 PM Status: COMPLETED Source: [facility] Office Visit (FAMPWS) MARICRUZ TEJADA ([id number]) 1 F Date Time Provider Department 04/01/25 12:40 PM [facility] During your visit today, we recorded the following information about you: Pulse Blood pressure Weight 78/minute 124/78 72.3 kg Ember Cr APRN.[facility] 04/01/2025 1:52 PM Signed Subjective Patient ID: [...] sunday - Provided educational material from the [facility] on POTS management and treatment. - Patient to follow up with golf cart repairer in July; consider repeat Zio heart monitor [...] Progress Patient progress: stable Recording using ambient [employer] software for draft documentation of the visit was discussed with the patient/authorized auto service representative; all questions welcomed and answered. Patient/authorized auto service representative agreed to proceed Ember Cr APRN.Ember Ramírez APRN.CNP 04/01/2025 1:46 PM Signed Follow up with cardiology regarding POTS symptoms, try to log symptoms and activities, let them know if you want another Zio monitor Continue BP meds as ordered Allergies As of Date: 04/01/2025 Noted Allergy Reaction CODEINE 07/03/2007 TRAMADOL 06/30/2014 9 - Itching 14 - Other: See Comments Comments: Dizziness Date Reviewed: 04/01/2025 Reviewed by: Naomy Dillon MA - Fully Assessed Reason for Visit: BP Check [142] Cmt: Follow up cardio appt today Primary Visit Diagnosis:Postural orthostatic tachycardia syndrome (POTS) [G90.A] Prescriptions as of 04/01/2025 - metoprolol succinate ER (TOPROL XL) 100 mg Take 1.5 tablets by mouth once daily. - triamterene-hydroCHLOROthiazide (MAXZIDE) 75-50 mg per tablet Take [...] right shoulde*03/23/2025 POTS (postural orthostatic tachycardia syndrome* Other instructions from your clinician: Follow up with cardiology regarding POTS symptoms, try to log symptoms and activities, let them know if you want another Zio monitor Continue BP meds as ordered Level of Service: OFFICE/OUTPATIENT ESTABLISHED LOW MDM 20 MIN [84301] Additional E/M codes: VISIT CPLX INHERENT EANDM ASSOC WITH MED * Disposition: Return if symptoms worsen or fail to improve. Follow-up and Disposition History for Encounter Date Provider Department Center 04/01/2025 [id number] CR*FAMPWS [place] [facility] Encounter Status:Closed by EMBER CR on 04/01/25 CNOV Observed: 04/01/2025 9:20 AM Status: COMPLETED Source: [facility] Office Visit (CARDMM) MARICRUZ TEJADA ([id number]) 1 F Date Time Provider Department 04/01/25 9:20 AM KUSUM VACA During your visit today, we recorded the following information about you: Pulse Blood pressure Weight Height 82/minute 124/88 71 kg 1.575 m Kusum Vaca MD 04/01/2025 10:19 AM Signed [facility] [place] SECTION OF REGIONAL CARDIOLOGY OUTPATIENT VISIT DATE 04/01/2025 OUTPATIENT VISIT TYPE ESTABLISHED PRIMARY CARE PHYSICIAN: Celso Freire [address] [place] [address] Patient is being seen at the request [...] if she experiences any further syncopal episodes. Kusum Vaca MD, [facility] Allergies As of Date: 04/01/2025 Noted Allergy Reaction CODEINE 07/03/2007 TRAMADOL 06/30/2014 9 - Itching 14 - Other: See Comments Comments: Dizziness Date Reviewed: 04/01/2025 Reviewed by: Ngozi Fields MA - Fully Assessed Reason for Visit: Follow Up [171] Cmt: Previously seen by Dr Tovar. Pt reports ongoing issues with near syncope. Occurs mainly when she is exercising. Primary Visit Diagnosis:Palpitations [R00.2] Other Visit Diagnosis:Syncope, unspecified syncope type [R55] Prescriptions as of 04/01/2025 - metoprolol succinate ER (TOPROL XL) 100 mg Take 1.5 tablets by mouth once daily. - triamterene-hydroCHLOROthiazide (MAXZIDE) 75-50 mg per tablet Take [...] right shoulde*03/23/2025 POTS (postural orthostatic tachycardia syndrome* Disposition: Return in about 3 months (around 07/02/2025) for Follow up visit. Follow-up and Disposition History for Encounter Date Provider Department Center 04/01/2025 [id number] [facility] Encounter Status:Closed by KUSUM VACA on 04/01/25 PROGRESS Observed: 04/01/2025 9:20 AM Status: COMPLETED Source: [facility] HNO ID: [id number] Author: KUSUM VACA MD Service: ? Author Type: Physician Type: Progress Notes Filed: 04/01/2025 10:19 Note Text: [facility] [place] SECTION OF REGIONAL CARDIOLOGY OUTPATIENT VISIT DATE 04/01/2025 OUTPATIENT VISIT TYPE ESTABLISHED PRIMARY CARE PHYSICIAN: Celso Freire [address] [place] [address] Patient is being seen at the request [...] if she experiences any further syncopal episodes. Kusum Vaca MD, [facility] CNPN Observed: 04/01/2025 12:00 AM Status: COMPLETED Source: [facility] Telephone (AGPOB1) MARICRUZ TEJADA ([id number]) 1 F Date Time Provider Department 04/01/25 DAVIDSON MCARTHUR [facility] During your visit today, we recorded the following information about you: Sarina Price 04/01/2025 4:33 PM Signed CALLED PATIENT TO CONFIRM SURGERY, ARRIVAL TIME OF 930 AM GIVE PATIENT INSTRUCTIONS AND MY INFORMATION FOR AFTERCARE TOLD TO COMPLETE QUESTIONNAIRE Sarina Price April 01, 2025 4:33 PM Allergies As of Date: 04/01/2025 Noted Allergy Reaction CODEINE 07/03/2007 TRAMADOL 06/30/2014 9 - Itching 14 - Other: See Comments Comments: Dizziness Date Reviewed: 04/01/2025 Reviewed by: Naomy Dillon MA - Fully Assessed Prescriptions as of 04/01/2025 - metoprolol succinate ER (TOPROL XL) 100 mg Take 1.5 tablets by mouth once daily. - triamterene-hydroCHLOROthiazide (MAXZIDE) 75-50 mg per tablet Take [...] (postural orthostatic tachycardia syndrome* Encounter Status:Closed by SARINA PRICE on 04/01/25 PROGRESS Observed: 03/30/2025 2:57 PM Status: COMPLETED Source: [facility] HNO ID: [id number] Author: NICOLE PIERRE APRN.FREELANCE RECRUITER Service: Anesthesiology Author Type: Nurse Practitioner Type: Progress Notes Filed: 03/30/2025 14:57 Note Text: TARIQ PAT noted reviewed. No anesthesia or pre-operative concerns noted. No optimizaitons pending. Ready for surgery. HISTORY PHYSICAL Observed: 03/30/2025 1:40 PM Status: COMPLETED Source: [facility] HNO ID: [id number] Author: SARAH GARRETT APRN.FREELANCE RECRUITER Service: ? Author Type: Nurse Practitioner Type: [...] repair) (Right) at the request of Dr. Davidson Mcarthur for routine HANDP. My final recommendation will be communicated back to the requesting physician by way of shared medical record or letter. Subjective The patient has the following: COVID-19 Immunization Status Current Care Gaps Covid-19 Vaccine (2023-) Never done 04/11/2024 Postponed until 04/11/2025 by Dinorah Diaz LPN (Declined at this time) 08/26/2021 Postponed until 08/26/2022 by Jazlyn Bermudez APRN.MAYA (Declined at this time) CHIEF [...] (71.2kg) SpO2 99% LMP 02/24/2025 BMI 28.71 kg/(m2). Diagnostic tests reviewed for today's visit: Lab [...] 8760 hours). Recent Results (from the past 80757 hours) ECHO Collection Time: 01/29/25 1:03 PM [...] Have Been Initiated: No test ordered in [facility] by surgeon Assessment/Plan Diagnosis: Superior glenoid labrum lesion of right shoulder, initial encounter [S43.431A] PLAN Planned Procedure: Procedure(s): SHOULDER ARTHROSCOPY W/ REPAIR SLAP LESION (slap repair) (Right) I spent a total of 40 minutes on the date of the service which included preparing to see the patient, [id number] patient care, completing clinical documentation, obtaining and/or reviewing separately obtained history, performing a medically appropriate examination, and counseling and educating the patient/family/caregiver. Instructions Given to Patient: Instructions located in the after visit summary. Patient given verbal and written preop instructions and voices comprehension and compliance. SIGNATURE: Sarah Garrett APRN.CNP PATIENT NAME: Maricruz Tejada DATE: March 30, 2025 TIME: 6:54 AM PAGER/CONTACT #: NURSING PROG Observed: 03/25/2025 9:48 AM Status: COMPLETED Source: [facility] HNO ID: [id number] Author: MEJIA MARIN APRN.CNP Service: ? Author Type: Nurse Practitioner Type: Nursing Progress Note Filed: 03/25/2025 09:49 Note Text: Summary: PAT Patient no show to PAT. Surgery scheduling notified. CHAYO Observed: 03/25/2025 12:00 AM Status: COMPLETED Source: [facility] Telephone (AGPOB1) MARICRUZ TEJADA ([id number]) 1 F Date Time Provider [facility] During your visit today, we recorded the following information about you: Sarina Price 03/25/2025 12:00 PM Signed Called patient in regard to missed pst Left voicemail with reschedule information Sarina Price March 25, 2025 12:00 PM Allergies As of Date: 03/25/2025 Noted Allergy Reaction CODEINE 07/03/2007 TRAMADOL 06/30/2014 9 - Itching 14 - Other: See Comments Comments: Dizziness Date Reviewed: 03/03/2025 Reviewed by: Abran Mabry MA - Fully Assessed Prescriptions as of 03/25/2025 - metoprolol succinate ER (TOPROL XL) 100 mg Take 1.5 tablets by mouth once daily. - triamterene-hydroCHLOROthiazide (MAXZIDE) 75-50 mg per tablet Take [...] (postural orthostatic tachycardia syndrome* Encounter Status:Closed by SARINA PRICE on 03/25/25 PAP TEST Collected: 11:34 AM Status: F Source: [facility] Order Comment: Specimen Type : FLUID SPECIMEN Ordering Facility: [facility] Address: [address] [place] [address] TYPE CODE TESTS RESULT OUT OF RANGE REFERENCE UNITS PATHOLOGY [id number] CASE REPORT Result Comment: Gynecologic Cytology Report Case: [id number] Authorizing Provider: Raya Whitman APRN.CNM Collected: 03/03/2025 11:34 AM Ordering Location: OB/Gynecology Received: 03/03/2025 04:29 PM First Screen: Turk, Kimberly, CT, ASCP Pathologist: Cassidy Hirsch MD Specimen: Pap Test, ThinPrep, Cervix PATHOLOGY [id number] ADEQUACY Result Comment: Satisfactory for interpretation. Transformation zone present PATHOLOGY [id number] PAP GENERAL CATEGORIZATION Epithelial Cell Abnormality PATHOLOGY [id number] INTERPRETATION, CYTOLOGY, REFUGE WORKER Abnormal Result Comment: Atypical squ amous cells of undetermined significance (ASC-US). at 1706 EDT PATHOLOGY [id number] CLINICAL HISTORY, CYTOLOGY, REFUGE WORKER Routine Exam PATHOLOGY [id number] LMP 02/24/2025 PATHOLOGY PAPDC PAP DISCLAIMER COMMENT The Pap Smear is a screening test for cervical cancer. False negative results occur with all screening tests, emphasizing the need for rescreening at recommended intervals, and clinical correlation. PATHOLOGY PAPIC PAP PROCEDURE TECH COMMENT This specimen has been analyzed by the ThinPrep Imaging System, an automated imaging and review system, which assists the laboratory in evaluating cells on ThinPrep Pap tests. Following automated imaging, selected bernal from every slide are reviewed by a cytotechnolog ist. PATHOLOGY [facility] FINAL PERFORMING LAB Result Comment: Technical co natalia, it security consulting director screening performed at [facility], [address] [place] [address] CLIA# [id number] Diagnostic interpretation performed at [facility], [address] [place] [address] CLIA# [id number] Configurator: Parveen Moreno M.D. Performed By: #### [id number] # ### [facility] CLIA [id number] [address] [place] [address] [place] HIGH RISK HUMAN PAPILLOMA VIRUS (HPV), PCR FOR DETECTION AND GENOTYPING Collected: 03/03/2025 11:34 AM Status: F Source: [facility] Order Comment: Specimen Type : FLUID SPECIMEN Ordering [facility] Address: [address] [place] [address] TYPE CODE TESTS RESULT OUT OF RANGE REFERENCE UNITS LAB 03404-0(LOINC) HPV16 Ag Spec Ql Not detected Not detected LAB 68796-3(LOINC) HPV18 Ag Spec Ql Not detected Not detected LAB 41070-1(LOINC) HPV HR 12 DNA Cvx Ql MICHAEL+probe Detected Abnormal Not detected Result Comment: High Risk HP V Other Type includes HPV types 31, 33, 35, 39, 45, 51, 52, 56, 58, 59, 66 and 68. Performed By: #### HPVHRT ## ## [facility] CLIA [id number] [address] [place] [address] CNOV Observed: 03/03/2025 10:45 AM Status: COMPLETED Source: [facility] Office Visit (OBGYWM) TEJADAALYSSIA BrandtH ([id number]) 1 F Date Time Provider Department 03/03/25 10:45 AM RAYA WHITMAN OBGYWM During your visit today, we recorded the following information about you: Blood pressure Weight Height Last Period 110/60 68 kg 1.575 m 02/24/25 Raya Whitman APRN.CNM 03/03/2025 1:00 PM Signed Maricruz Mallory is a 19 year old who presents for her annual gynecologic exam without complaints. The patient is a 19-year-old female with a history of migraines and HTN, presenting for follow-up on IUD insertion performed in December. The patient reports continuous bleeding since the IUD insertion in December, with a 2-week cessation period occurring 2 weeks ago. 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 [...] Living0 SAB0 IAB0 Ectopic0 Multiple0 Live Births0 Imaging Tech History LMP: 02/24/2025 (Exact Date), Having periods Age at Menarche: Age at First : Age at Menopause: Imaging Tech History Comments: Sexual Activity: Yes; Male Contraception: [...] discussed with the Patient or Patient's Authorized Clamp Carrier Operator. As applicable, any other physician, advance practice provider, medical student, or other health professional student that will be observing or involved in the sensitive examination for educational or training purposes was discussed with the Patient or Authorized Clamp Carrier Operator. The Patient or Authorized Clamp Carrier Operator has agreed to proceed with the sensitive [...] external genitalia normal, normal Bartholin's glands, urethra, Chaumont's glands, no vulvar lesions, no cervical lesions, [...] one year or sooner as needed Raya Whitman APRN.CNM Allergies As of Date: 03/03/2025 Noted Allergy Reaction CODEINE 07/03/2007 TRAMADOL 06/30/2014 9 - Itching 14 - Other: See Comments Comments: Dizziness Date Reviewed: 03/03/2025 Reviewed by: Abran Mabry MA - Fully Assessed Reason for Visit: Well Woman [1463] Primary Visit Diagnosis:Encounter for gynecological examination (general) (routine) with abnormal findings [Z01.411] Other Visit Diagnoses:Screening for cervical cancer [Z12.4] Encounter for screening for human papillomavirus (HPV) [Z11.51] Screen for STD (sexually transmitted disease) [Z11.3] IUD (intrauterine device) in place [Z97.5] Order(s):PAP TEST [OVA6404] Order #: [id number]. #:[id number] Prescriptions as of 03/03/2025 - metoprolol succinate ER (TOPROL XL) 100 mg Take 1.5 tablets by mouth once daily. - triamterene-hydroCHLOROthiazide (MAXZIDE) 75-50 mg per tablet Take [...] once daily. - Norethindrone Acet-Ethinyl Est (JUNEL 12/08, ,) 1-20 mg-mcg per tablet (Discontinued) Take 1 tablet by mouth once daily. Problem List As Of Date 03/03/2025 Noted Resolved Tabor's fracture of base of [...] IUD (intrauterine device) in place [Z97.5] 03/03/2025 Disposition: Return in 1 year (on 03/03/2026) for Annual Exam. Follow-up and Disposition History for Encounter Date Provider Department Center 03/03/2025 [id number] WHITMAN [place] [facility] Encounter Status:Closed by RAYA WHITMAN on 03/03/25 PROGRESS Observed: 03/03/2025 10:37 AM Status: COMPLETED Source: [facility] ID: [id number] Author: RAYA WHITMAN APRN.ETHAN Service: ? Author Type: Sales Performance Analyst Type: Progress Notes Filed: 03/03/2025 13:00 Note [...] ago. 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 [...] Living0 SAB0 IAB0 Ectopic0 Multiple0 Live Births0 Imaging Tech History LMP: 02/24/2025 (Exact Date), Having periods Age at Menarche: Age at First : Age at Menopause: Imaging Tech History Comments: Sexual Activity: Yes; Male Contraception: [...] discussed with the Patient or Patient's Authorized Clamp Carrier Operator. As applicable, any other physician, advance practice provider, medical student, or other health professional student that will be observing or involved in the sensitive examination for educational or training purposes was discussed with the Patient or Authorized Clamp Carrier Operator. The Patient or Authorized Clamp Carrier Operator has agreed to proceed with the sensitive [...] external genitalia normal, normal Bartholin's glands, urethra, Chaumont's glands, no vulvar lesions, no cervical lesions, [...] one year or sooner as needed Raya Whitman APRN.CNM PROGRESS Observed: 02/16/2025 1:48 PM Status: [facility]TED [id number] Author: DAVIDSON MCARTHUR MD Service: ? Author Type: Physician [...] patient has been provided an informed consent. Davidson Mcarthur MD CNOV Observed: 02/16/2025 1:45 PM Status: COMPLETED Source: [facility] Office Visit (AGHWG1) TEJADAMARICRUZ Brandt ([id number]) 1 F Date Time Provider Department 02/16/25 1:45 PM DAVIDSON MCARTHUR AGHWG1 During your visit today, we recorded the following information about you: Respiration Weight Height 16/minute 71.2 kg 1.6 m Davidson Mcarthur MD 02/16/2025 1:59 PM Signed Chief [...] patient has been provided an informed consent. Davidson Mcarthur MD Referring Provider: SELF [200] Allergies As of Date: 02/16/2025 Noted Allergy Reaction CODEINE 07/03/2007 TRAMADOL 06/30/2014 9 - Itching 14 - Other: See Comments Comments: Dizziness Date Reviewed: 02/16/2025 Reviewed by: Azul Esparza LPN - Fully Assessed Reason for Visit: Established Patient [175] Primary Visit Diagnosis:Superior glenoid labrum lesion of right shoulder, initial encounter [S43.431A] Prescriptions as of 02/16/2025 - metoprolol succinate ER (TOPROL XL) 100 mg Take 1.5 tablets by mouth once daily. - triamterene-hydroCHLOROthiazide (MAXZIDE) 75-50 mg per tablet Take [...] once daily. Problem List As Of Date 02/16/2025 Noted Resolved Tabor's fracture of base of [...] rotator cuff [M67.911] 09/02/2024 Encounter Status:Closed by DAVIDSON MCARTHUR on 02/16/25 PROGRESS Observed: 02/13/2025 1:00 PM Status: COMPLETED Source: [facility] ID: [id number] Author: RUTH MANNING APRN.FREELANCE RECRUITER Service: ? Author Type: Nurse Practitioner Type: [...] for migraine Informed Consent Consent Obtained: Written [place] Protocol A moment to CARE was completed [...] collected. Written Consent Obtained: Written LOT #: [id number] Expiration Date: Month: Year: 2026 Second vial: LOT #: [id number] Expiration Date: Month: Year: 2026 Injection Sites Left (Units) Left (Sites) Right (Units) Right (Sites) TOTAL (Units) Warehouse Selector 5 1 5 1 10 Procerus Units: [...] Use Dose Side effect Analgesic Hydrocodone/Acetaminophen (Vicodin, [place]) Tramadol (Ultram) Anti-Anxiety Buspirone (Buspar) Anti-Depressant and Antipsychotic Bupropion (Wellbutrin) Duloxetine (Cymbalta) Paroxetine (Paxil) Sertraline (Zoloft) Antiemetics Ondansetron Anti-Migraine Eletriptan (Relpax) Naratriptan (Amerge) Rizatriptan (Maxalt) Blood Pressure Lisinopril (Zestril) Metoprolol (Lopressor,Toprol XL) Muscle Relaxer Baclofen (Lioresal) Other Medications Dextroamphetamine (Adderal) Prednisone Over the Counter Medications Acetaminophen (Tylenol) Acetaminophen/Aspirin/Caffeine (Excedrin, Goody?s) Aspirin Ibuprofen (Advil, Motrin) Naproxen sodium (Aleve) Ruth Manning APRN.CNP CNOV Observed: 02/13/2025 1:00 PM Status: COMPLETED Source: [facility] Office Visit (CTFB) MARICRUZ TEJADA ([id number]) 1 F Date Time Provider Department 02/13/25 1:00 PM RUTH MANNING CTLYNNETTE During your visit today, we recorded the following information about you: Pulse Blood pressure Weight 91/minute 128/85 71.2 kg Ruth Manning APRN.CNP 02/13/2025 1:43 PM Signed [facility] Follow-up [...] for migraine Informed Consent Consent Obtained: Written [place] Protocol A moment to CARE was completed [...] collected. Written Consent Obtained: Written LOT #: [id number] Expiration Date: Month: : 2026 Second vial: LOT #: [id number] Expiration Date: Month: Year: 2026 Injection Sites Left (Units) Left (Sites) Right (Units) Right (Sites) TOTAL (Units) Warehouse Selector 5 1 5 1 10 Procerus Units: [...] Use Dose Side effect Analgesic Hydrocodone/Acetaminophen (Vicodin, [place]) Tramadol (Ultram) Anti-Anxiety Buspirone (Buspar) Anti-Depressant and Antipsychotic Bupropion (Wellbutrin) Duloxetine (Cymbalta) Paroxetine (Paxil) Sertraline (Zoloft) Antiemetics Ondansetron Anti-Migraine Eletriptan (Relpax) Naratriptan (Amerge) Rizatriptan (Maxalt) Blood Pressure Lisinopril (Zestril) Metoprolol (Lopressor,Toprol XL) Muscle Relaxer Baclofen (Lioresal) Other Medications Dextroamphetamine (Adderal) Prednisone Over the Counter Medications Acetaminophen (Tylenol) Acetaminophen/Aspirin/Caffeine (Excedrin, Goody?s) Aspirin Ibuprofen (Advil, Motrin) Naproxen sodium (Aleve) Ruth Manning APRN.Ruth Brandon APRN.CNP 02/13/2025 1:12 PM Signed AFTER VISIT [...] and maximize the effectiveness of your pain relief? -HYDRATION Hydration is important to help nourish [...] 3 months for your next Botox Injection Referring Provider: PATIENCE MATUTE [[id number]] Allergies As of Date: 02/13/2025 Noted Allergy Reaction CODEINE 07/03/2007 TRAMADOL 06/30/2014 9 - Itching 14 - Other: See Comments Comments: Dizziness Date Reviewed: 02/13/2025 Reviewed by: Ruth Manning APRN.FREELANCE RECRUITER - Fully Assessed Reason for Visit: Botox Injection [373] Primary Visit Diagnosis:Chronic migraine without aura, intractable, without status migrainosus [G43.719] Order(s):[] onabotulinum toxin type A 200 Units injection (BOTOX)Disp: Rfl: Prescriptions as of 02/13/2025 - metoprolol succinate ER (TOPROL XL) 100 mg Take 1.5 tablets by mouth once daily. - triamterene-hydroCHLOROthiazide (MAXZIDE) 75-50 mg per tablet Take [...] once daily. Problem List As Of Date 02/13/2025 Noted Resolved Tabor's fracture of base of [...] Disorder of right rotator cuff [M67.911] 09/02/2024 Other instructions from your clinician: AFTER VISIT CARE BOTOX INJECTION While these [...] and maximize the effectiveness of your pain relief? -HYDRATION Hydration is important to help nourish [...] 3 months for your next Botox Injection Prescriptions ordered this encounter Disp Refills Start End ONABOTULINUMTOXINA 200 UNIT SOLUTION* 02/13/2025 02/13/2025 Route: INTRAMUSCULA Medications Discontinued During This Encounter Prescriptions - galcanezumab-gnlm (EMGALITY PEN) 120 mg/mL pen (Discontinued) Inject 2 pens (240 mg) under the skin 1 time only for initial loading dose. Refrigerate. Do not shake. - galcanezumab-gnlm (EMGALITY PEN) 120 mg/mL pen (Discontinued) Inject 1 mL subcutaneously once every month. Refrigerate. Do not shake. Patient should start on June 04, 2024. Disposition: Return in about 3 months (around 05/16/2025) for Botox. Follow-up and Disposition History for Encounter Date Provider Department Center 02/13/2025 [id number], KATHER*[facility] Encounter Status:Closed by RUTH MANNING on 02/13/25 [facility] Observed: 8:08 AM Status: F Source: [facility] Critical access hospital Renal or Mesenteric Duplex Bilateral/Complete Date of [...] Technologist: Rianna Tijerina BA, RVT Ordering physician: JAZLYN BERMUDEZ Interpreting physician: JUSTIN Tirado DO Final CC [employer] [facility] Image : [id number] See Link below for Image US THYROID/PARATHYROID Observed: 025 3:00 PM Status: F Source: [facility] * * *Final Report* * * DATE OF EXAM: Jan 29 2025 3:00PM [facility] 1048 - US THYROID/PARATHYROID / PROCEDURE REASON: [...] IMPRESSION: Normal sonographic appearance of the thyroid. [employer] Advanced Operator Maintainer: SYMONE Transcribe Date/Time: Jan 31 2025 3:02A Dictated by : EMILY CLARK DO This examination was interpreted and the report reviewed and electronically signed by: EMILY CLARK DO on Jan 31 2025 3:03AM EST [id number] US KIDNEY/BLADDER Observed: 01/29/2025 2:55 PM Status: F Source: [facility] * * *Final Report* * * DATE OF EXAM: Jan 29 2025 2:55PM [facility] 1055 - US KIDNEY/BLADDER / PROCEDURE REASON: [...] exam of the bilateral kidneys and bladder. [employer] Advanced Operator Maintainer: ipnexus Transcribe Date/Time: Jan 30 2025 11:09A Dictated by : LOY BOWMAN MD This examination was interpreted and the report reviewed and electronically signed by: LOY BOWMAN MD on Jan 30 2025 11:15AM EST [id number] PROGRESS Observed: 01/29/2025 2:30 PM Status: COMPLETED Source: [facility] HNO ID: [id number] Author: SABRINA VALENCIA RDMS Service: ? Author Type: Arbitrator Type: Progress Notes Filed: 01/29/2025 15:22 Note [...] PATIENT PRESENTS WITH AN IMPLANTABLE OR ATTACHED GERMAN INSTRUCTOR: No RADIOLOGY DEPARTMENT: Ultrasound PERIPHERAL IV DATA: Not applicable SIGNED BY: Sabrina Valencia RDMS January 29, 2025 3:22 PM ECHO Observed: 01/29/2025 1:03 PM Status: F Source: [facility] Echocardiography Report: Tra nsthoracic Echo [facility]ly [facility] Date of service: 01/29/2025 1:03:50 PM [place] Ordering physician: JAZLYN BERMUDEZ Indication: Hypertension Technologist: Denice Mario RD Interpreting physician: Roseanna Duncan MD PATIENT: Name: [...] * * * Final * * * [employer] [facility] : [id number] CYNDIE ABARCA PANEL Collected: 01/29/2025 9:42 AM Sta tus: F Source: [facility] Order Comment: Specimen Type : BLOOD SPECIMEN Ordering Facility: [facility] Address: [address] [place] [address] TYPE CODE TESTS RESULT OUT OF RANGE REFERENCE UNITS LAB EBVGQ EBV VCA IGG, QUAL Positive Abnormal Negative LAB EBVMQ EBV VCA IGM, QUAL Negative Negative LAB EBVNAQ EBV NA AB, QUAL Positive Abnormal Negative LAB EBVINT INTERPRETATION (EBVPNL) Past Infection. EBV panel interpretation is a general guide that is meant to capture most, but not all, of the possible clinical scenarios. Non-specific reactivities are not uncommon especially with equivocal results. Should the overall interpretation not be consistent with the clinical picture, please contact the certified medical dosimetrist of the test for assistance. Performed By: #### EBVPNL ## ## [facility] CLIA [id number] [address] [place] [address] [place] [address] [place] PROGRESS Observed: 01/29/2025 8:40 AM Status: COMPLETED Source: [facility] HNO ID: [id number] Author: JAZLYN BERMUDEZ APRN.FREELANCE RECRUITER Service: ? Author Type: Nurse Practitioner Type: [...] ICD9: V77.0, ICD10: Z13.29 - US THYROID/PARATHYROID Jazlyn Bermudez APRN.CNP Medical Decision Making: Problems: Low: Stable chronic illness Moderate: Acute illness with systemic symptoms Data: Unique test result(s) reviewed: 2 Unique test(s) ordered: 3+ Risk: Moderate: Drug management Medical Decision Making Level: 4 - Moderate CNOV Observed: 01/29/2025 8:40 AM Status: COMPLETED Source: [facility] MARICRUZ TEJADA ([id number]) 1 F Date Time Provider Department 01/29/25 8:40 AM JAZLYN BERMUDEZ During your visit today, we recorded the following information about you: Pulse Blood pressure Weight 76/minute 118/82 70 kg Jazlyn Bermudez APRN.CNP 01/29/2025 3:52 PM Signed Chief Complaint Patient [...] ICD9: V77.0, ICD10: Z13.29 - US THYROID/PARATHYROID Jazlyn Bermudez APRN.CNP Medical Decision Making: Problems: Low: Stable chronic illness Moderate: Acute illness with systemic symptoms Data: Unique test result(s) reviewed: 2 Unique test(s) ordered: 3+ Risk: Moderate: Drug management Medical Decision Making Level: 4 - Moderate Referring Provider: SELF [200] Allergies As of Date: 01/29/2025 Noted Allergy Reaction CODEINE 07/03/2007 TRAMADOL 06/30/2014 9 - Itching 14 - Other: See Comments Comments: Dizziness Date Reviewed: 01/29/2025 Reviewed by: Naomy Dillon MA - Fully Assessed Reason for Visit: Hypertension [168] Primary Visit Diagnosis:Hypertension, essential [I10] Other Visit Diagnoses:Palpitations [R00.2] Tachycardia [R00.0] Fatigue, unspecified type [R53.83] Sore throat [J02.9] Tired [R53.83] Sensation of swollen throat [R68.89] Dizziness [R42] Screening for thyroid disorder [Z13.29] Order(s):metoprolol succinate ER (TOPROL XL) 100 mgTake 1.5 tablets by mouth once daily.Disp: 135 tabletRfl: 1 CYNDIE ABARCA PANEL [SQEBVPAN] Order #: [id number] FUTURE TILT TABLE EVALUATION [03063VPC] Order #: [id number]: 1 THYROID/PARATHYROID [0751028] Order #: [id number] FUTURE Prescriptions as of 01/29/2025 - metoprolol succinate ER (TOPROL XL) 100 mg Take 1.5 tablets by mouth once daily. - triamterene-hydroCHLOROthiazide (MAXZIDE) 75-50 mg per tablet Take [...] once daily. - Norethindrone Acet-Ethinyl Est (JUNEL 12/08, ,) 1-20 mg-mcg per tablet (Discontinued) Take 1 tablet by mouth once daily. Problem List As Of Date 01/29/2025 Noted Resolved Tabor's fracture of base of [...] Disorder of right rotator cuff [M67.911] 09/02/2024 Prescriptions ordered this encounter Disp Refills Start End METOPROLOL SUCCINATE ER 100 MG TABLE* 135 * 1 01/29/2025 07/28/2025 Route: ORAL Sig: Take 1.5 tablets by mouth once daily. Medications Discontinued During This Encounter Prescriptions - metoprolol succinate ER (TOPROL XL) 100 mg (Discontinued) Take 1.5 tablets by mouth once daily. Level of Service: OFFICE/OUTPATIENT ESTABLISHED MOD MDM 30 MIN [53280] Disposition: Return in about 6 weeks (around 03/12/2025) for review BP, testing. Follow-up and Disposition History for Encounter Date Provider Department Center 01/29/2025 [id number]-GCDCEENTJAZLYN BERMUDEZ [facility] Encounter Status:Closed by JAZLYN BERMUDEZ on 01/29/25 CNOV Observed: 01/22/2025 1:15 PM Status: COMPLETED Source: [facility] Office Visit ([facility]) MARICRUZ TEJADA ([id number]) 1 F Date Time Provider Department 01/22/25 1:15 PM VIN CANADA [facility] During your visit today, we recorded the following information about you: Temperature Pulse Respiration Blood pressure 98.3 degrees 109/minute 22/minute 122/80 Weight Last Period 69 kg 01/22/25 Vin Canada APRN.FREELANCE RECRUITER 01/22/2025 1:22 PM Signed [facility] Subjective Maricruz Tejada is a [...] of care. This note was generated using [employer] J[employer] software. It may contain errors in wording, punctuation, or spelling. Vin Canada APRN.FREELANCE RECRUITER Allergies As of Date: 01/22/2025 Noted Allergy Reaction CODEINE 07/03/2007 TRAMADOL 06/30/2014 9 - Itching 14 - Other: See Comments Comments: Dizziness Date Reviewed: 01/22/2025 Reviewed by: Vin Canada APRN.FREELANCE RECRUITER - Fully Assessed Reason for Visit: Sore Throat [200] Cmt: Headache, congestion, loss of appetite, body aches x 1 week Primary Visit Diagnosis:Sore throat [J02.9] Other Visit Diagnosis:Sinobronchitis [J32.9, J40] Order(s):STREP A MOLECULAR (POC) [[id number]] Order #: [id number]. #:[id number] amoxicillin-clavulanate potassium (AUGMENTIN) 875-125 mg per tabletTake 1 tablet by mouth two times a day for 5 days.Disp: 10 tabletRfl: 0 Prescriptions as of 01/22/2025 - amoxicillin-clavulanate potassium (AUGMENTIN) 875-125 mg per tablet Take 1 tablet by mouth two times a day for 5 days. - triamterene-hydroCHLOROthiazide (MAXZIDE) 75-50 mg per tablet Take [...] once daily. Problem List As Of Date 01/22/2025 Noted Resolved Tabor's fracture of base of [...] Disorder of right rotator cuff [M67.911] 09/02/2024 Prescriptions ordered this encounter Disp Refills Start End AMOXICILLIN 875 MG-POTASSIUM CLAVULA* 10 t* 0 01/22/2025 01/27/2025 Route: ORAL Sig: Take 1 tablet by mouth two times a day for 5 days. Level of Service: OFFICE/OUTPATIENT ESTABLISHED MOD MDM 30 MIN [39529] Encounter Status:Closed by VIN CANADA on 01/22/25 PROGRESS Observed: 01/22/2025 12:55 PM Status: COMPLETED Source: [facility] HNO ID: [id number] Author: VIN CANADA APRN.FREELANCE RECRUITER Service: ? Author Type: Nurse Practitioner Type: [...] of care. This note was generated using [employer] software. It may contain errors in wording, punctuation, or spelling. Vin Canada APRN.FREELANCE RECRUITER MRI ARTHROGRAM SHOULDER RT Observed: 02/2025 9:55 AM Status: F Source: [facility] * * *Final Report* * * DATE OF EXAM: Jan 20 2025 9:55AM [facility] 0171 - MRI ARTHROGRAM SHOULDER RT / [...] 3. No evidence of rotator cuff tear [employer] Advanced Operator Maintainer: [facility] Transcribe Date/Time: Jan 20 2025 12:45P Dictated by : ANGEL QUINTANILLA MD This examination was interpreted and the report reviewed and electronically signed by: ANGEL QUINTANILLA MD on Jan 20 2025 1:06PM EST [id number] IR INJ PROC FOR SHLDR ARTHOGRAM Observed: 01/20/2025 9:19 AM Status: F Source: [facility] * * *Final Report* * * DATE OF EXAM: Jan 20 2025 9:19AM [facility] 0956 - IR INJ PROC [...] MRI that was performed shortly after arthrography. [employer] Advanced Operator Maintainer[facility] Transcribe Date/Time: Jan 21 2025 11:29P Dictated by : EVELYNE HARRIS MD This examination was interpreted and the report reviewed and electronically signed by: EVELYNE HARRIS MD on Jan 21 2025 11:30PM EST [id number] OP NOT Observed: 01/20/2025 9:14 AM Status: COMPLETED Source: [facility] HNO ID: [id number] Author: EVELYNE HARRIS MD Service: Interventional Radiology Author Type: Physician Type: Brief Op Note Filed: 01/20/2025 09:15 Note Text: INTERVENTIONAL RADIOLOGY POST PROCEDURE NOTE DATE: 01/20/25 NAME: Maricruz Tejada LOG ID: [id number] Pre-Procedure Diagnosis: Right shoulder pain Tabulating Machine Mechanic: Surgeon(s) and Role: * Evelyne Harris MD, MD - Primary Procedure: Image-guided arthrogram (right) Anesthesia: Local anesthesia Findings: Contrast media successfully injected under fluoroscopic guidance with adequate arthrographic opacification. Estimated Blood Loss: None Specimen: None Complications: None Post-Op/Post-Procedure Diagnosis: - Successful arthrogram under fluoroscopic guidance. The patient was sent to Radiology for post-arthrogram cross-sectional imaging - Please see Radiology report for complete information PROGRESS Observed: 01/20/2025 8:20 AM Status: COMPLETED Source: [facility] HNO ID: [id number] Author: JADEN MCKAY Tech Service: Radiology Author Type: Arbitrator Type: Progress Notes Filed: 01/20/2025 09:22 Note [...] PATIENT PRESENTS WITH AN IMPLANTABLE OR ATTACHED GERMAN INSTRUCTOR: No RADIOLOGY DEPARTMENT: MR; Exam(s) Completed: Upper MSK: Shoulder, right Arthrogram PERIPHERAL IV DATA: Not applicable SIGNED BY: Deb Kiser January 20, 2025 9:22 AM FLUABV+SARS-COV-2+RSV PNL RE SP MICHAEL+PROBE Observed: 01/15/2025 9:06 AM Status: F Source: [facility] SARS-COV-2 (AGENT OF COVID-1 9) RNA: Not detectedINFLUENZA A RNA: Not detectedINFLUENZA B RNA: Not detectedRESPIRATORY SYNCYTIAL VIRUS (RSV) RNA: Not detected Performed By: #### [id number] # ### [facility] CLIA [id number] [address] [place] [address] [place] Observed: 01/15/2025 8:36 AM Status: COMPLETED Source: [facility] ID: [id number] Author: JAZLYN BERMUDEZ APRN.FREELANCE RECRUITER Service: ? Author Type: Nurse Practitioner Type: [...] necessary Will start wearing compression stockings at [facility] - BLOOD PRESSURE TEST KIT-MEDIUM CUFF - TRIAMTERENE 75 MG-HYDROCHLOROTHIAZIDE 50 MG TABLET - KIDNEY/BLADDER - [facility] - ECHO - PERFLUTREN LIPID MICROSPHERES 1.1 MG/ML INJECTION IN NS 10 ML - SODIUM CHLORIDE 0.9 % (FLUSH) INJECTION SYRINGE 2. Resistant hypertension - ICD9: 401.9, ICD10: I1A.0 She is aware of red flag s/s F/u in the office in 2 weeks, sooner if necessary Will start wearing compression stockings at [facility] - KIDNEY/BLADDER - [facility] - ECHO - PERFLUTREN LIPID MICROSPHERES 1.1 MG/ML INJECTION IN NS 10 ML - SODIUM CHLORIDE 0.9 % (FLUSH) INJECTION SYRINGE 3. Pedal edema - ICD9: 782.3, ICD10: R60.0 She is aware of red flag s/s F/u in the office in 2 weeks, sooner if necessary Will start wearing compression stockings at [facility] - KIDNEY/BLADDER - [facility] - COVID AND INFLUENZA A/B AND RSV PCR, ROUTINE - ECHO - PERFLUTREN LIPID MICROSPHERES 1.1 MG/ML INJECTION IN NS 10 ML - SODIUM CHLORIDE 0.9 % (FLUSH) INJECTION SYRINGE 4. Brain fog - ICD9: 799.59, ICD10: R41.89 She is aware of red flag s/s F/u in the office in 2 weeks, sooner if necessary Will start wearing compression stockings at [facility] KIDNEY/BLADDER - [facility] - COVID AND INFLUENZA A/B AND RSV PCR, ROUTINE - ECHO - PERFLUTREN LIPID MICROSPHERES 1.1 MG/ML INJECTION IN NS 10 ML - SODIUM CHLORIDE 0.9 % (FLUSH) INJECTION SYRINGE 5. Malaise - ICD9: 780.79, ICD10: R53.81 She is aware of red flag s/s F/u in the office in 2 weeks, sooner if necessary Will start wearing compression stockings at [facility] - US KIDNEY/BLADDER - [facility] - COVID AND INFLUENZA A/B AND RSV PCR, ROUTINE 6. Fatigue, unspecified type - ICD9: 780.79, ICD10: R53.83 She is aware of red flag s/s F/u in the office in 2 weeks, sooner if necessary Will start wearing compression stockings at wor - US KIDNEY/BLADDER - [facility] - COVID AND INFLUENZA A/B AND RSV PCR, ROUTINE - ECHO - PERFLUTREN LIPID MICROSPHERES 1.1 MG/ML INJECTION IN NS 10 ML - SODIUM CHLORIDE 0.9 % (FLUSH) INJECTION SYRINGE 7. Generalized weakness - ICD9: 780.79, ICD10: R53.1 She is aware of red flag s/s F/u in the office in 2 weeks, sooner if necessary Will start wearing compression stockings at [facility] - US KIDNEY/BLADDER - [facility] - COVID AND INFLUENZA A/B AND RSV PCR, ROUTINE - ECHO - PERFLUTREN [...] [facility] - COVID AND INFLUENZA A/B AND RSV PCR, ROUTINE - ECHO - PERFLUTREN LIPID MICROSPHERES 1.1 MG/ML INJECTION IN NS 10 ML - SODIUM CHLORIDE 0.9 % (FLUSH) INJECTION SYRINGE 9. Exposure to influenza - ICD9: V01.79, ICD10: Z20.828 If positive for influenza A will plan for Tamaflu rx, this was discussed with patient - COVID AND INFLUENZA A/B AND RSV PCR, ROUTINE Jazlyn Bermudez APRN.MAYA NEVILLE Observed: 01/15/2025 8:20 AM Status: COMPLETED Source: [facility] MARICRUZ TEJADA ([id number]) 1 F Date Time Provider Department 01/15/25 8:20 AM JAZLYN BERMUDEZ During your visit today, we recorded the following information about you: Pulse Blood pressure Weight 96/minute 148/90 70.8 kg Jazlyn Bermudez APRN.FREELANCE RECRUITER 01/15/2025 9:37 AM Signed Chief Complaint Patient [...] necessary Will start wearing compression stockings at [facility] - BLOOD PRESSURE TEST KIT-MEDIUM CUFF - [...] necessary Will start wearing compression stockings at [facility] - KIDNEY/BLADDER - [facility] - ECHO - PERFLUTREN LIPID MICROSPHERES 1.1 MG/ML INJECTION IN NS 10 ML - SODIUM CHLORIDE 0.9 % (FLUSH) INJECTION SYRINGE 3. Pedal edema - ICD9: 782.3, ICD10: R60.0 She is aware of red flag s/s F/u in the office in 2 weeks, sooner if necessary Will start wearing compression stockings at [facility] - KIDNEY/BLADDER - [facility] - COVID AND INFLUENZA A/B AND RSV PCR, ROUTINE - ECHO - PERFLUTREN LIPID MICROSPHERES 1.1 MG/ML INJECTION IN NS 10 ML - SODIUM CHLORIDE 0.9 % (FLUSH) INJECTION SYRINGE 4. Brain fog - ICD9: 799.59, ICD10: R41.89 She is aware of red flag s/s F/u in the office in 2 weeks, sooner if necessary Will start wearing compression stockings at [facility] - US KIDNEY/BLADDER - [facility] - COVID AND INFLUENZA A/B AND RSV PCR, ROUTINE - ECHO - PERFLUTREN LIPID MICROSPHERES 1.1 MG/ML INJECTION IN NS 10 ML - SODIUM CHLORIDE 0.9 % (FLUSH) INJECTION SYRINGE 5. Malaise - ICD9: 780.79, ICD10: R53.81 She is aware of red flag s/s F/u in the office in 2 weeks, sooner if necessary Will start wearing compression stockings at wor - US KIDNEY/BLADDER - US [facility] - COVID AND INFLUENZA A/B AND RSV PCR, ROUTINE 6. Fatigue, unspecified type - ICD9: 780.79, ICD10: R53.83 She is aware of red flag s/s F/u in the office in 2 weeks, sooner if necessary Will start wearing compression stockings at [facility] - US KIDNEY/BLADDER - US [facility] - COVID AND INFLUENZA A/B AND RSV PCR, ROUTINE - ECHO - PERFLUTREN LIPID MICROSPHERES 1.1 MG/ML INJECTION IN NS 10 ML - SODIUM CHLORIDE 0.9 % (FLUSH) INJECTION SYRINGE 7. Generalized weakness - ICD9: 780.79, ICD10: R53.1 She is aware of red flag s/s F/u in the office in 2 weeks, sooner if necessary Will start wearing compression stockings at [facility] - US KIDNEY/BLADDER - US [facility] - COVID AND INFLUENZA A/B AND RSV PCR, ROUTINE - ECHO - PERFLUTREN LIPID MICROSPHERES 1.1 MG/ML INJECTION IN NS 10 ML - SODIUM CHLORIDE 0.9 % (FLUSH) INJECTION SYRINGE 8. Lightheaded - ICD9: 780.4, ICD10: R42 She is aware of red flag s/s F/u in the office in 2 weeks, sooner if necessary Will start wearing compression stockings at work - US KIDNEY/BLADDER - US [facility] - COVID AND INFLUENZA A/B AND RSV PCR, ROUTINE - ECHO - PERFLUTREN LIPID MICROSPHERES 1.1 MG/ML INJECTION IN NS 10 ML - SODIUM CHLORIDE 0.9 % (FLUSH) INJECTION SYRINGE 9. Exposure to influenza - ICD9: V01.79, ICD10: Z20.828 If positive for influenza A will plan for Tamaflu rx, this was discussed with patient - COVID AND INFLUENZA A/B AND RSV PCR, ROUTINE RAVEN Gallardo Rebekah, APRN.CNP 01/15/2025 8:48 AM Signed Add the Maxzide BP medication Start wearing compression stockings at work Schedule your ultrasound of your kidneys and their arteries Schedule echocardiogram-ultrasound of your heart Allergies As of Date: 01/15/2025 Noted Allergy Reaction CODEINE 07/03/2007 TRAMADOL 06/30/2014 9 - Itching 14 - Other: See Comments Comments: Dizziness Date Reviewed: 01/15/2025 Reviewed by: Jazlyn Bermudez APRN.CNP - Fully Assessed Reason for Visit: Blood Pressure [15] Primary Visit Diagnosis:Hypertension, essential [I10] Other Visit Diagnoses:Resistant hypertension [I1A.0] Pedal edema [R60.0] Brain fog [R41.89] Malaise [R53.81] Fatigue, unspecified type [R53.83] Generalized weakness [R53.1] Lightheaded [R42] Exposure to influenza [Z20.828] Order(s):Blood Pressure Test Kit-Medium kitUse as directed for blood pressure monitoringDisp: 1 EachRfl: 0 triamterene-hydroCHLOROthiazide (MAXZIDE) 75-50 mg per tabletTake 1 tablet by mouth once daily.Disp: 30 tabletRfl: 2 US KIDNEY/BLADDER [[id number]] Order #: [id number] FUTURE [facility] [[id number]] Order #: [id number] FUTURE COVID AND INFLUENZA A/B AND RSV PCR, ROUTINE [SQCVFLRS] Order #: [id number]. #:[id number] ECHO [[id number]] Order #: [id number]: 1 FUTURE Prescriptions as of 01/15/2025 - Blood Pressure Test Kit-Medium kit Use as directed for blood pressure monitoring - triamterene-hydroCHLOROthiazide (MAXZIDE) 75-50 mg per tablet Take [...] once daily. Problem List As Of Date 01/15/2025 Noted Resolved Tabor's fracture of base of [...] Disorder of right rotator cuff [M67.911] 09/02/2024 Other instructions from your clinician: Add the Maxzide BP medication Start wearing compression stockings at work Schedule your ultrasound of your kidneys and their arteries Schedule echocardiogram-ultrasound of your heart Prescriptions ordered this encounter Disp Refills Start End BLOOD PRESSURE TEST KIT-MEDIUM CUFF 1 Ea* 0 01/15/2025 01/16/2025 Class: Print RX Sig: Use as directed for blood pressure monitoring TRIAMTERENE 75 MG-HYDROCHLOROTHIAZID* 30 t* 2 01/15/2025 04/15/2025 Route: ORAL Sig: Take 1 tablet by mouth once daily. Level of Service: OFFICE/OUTPATIENT ESTABLISHED MOD MDM 30 MIN [59555] Disposition: Return in about 2 weeks (around 01/29/2025) for BP/new medication check. Follow-up and Disposition History for Encounter Date Provider Department Center 01/15/2025 [id number], REBEKAH FAMPWS Alvaro [facility] Encounter Status:Closed by JAZLYN BERMUDEZ on 01/15/25 CNCO Observed: 01/15/2025 12:00 AM Status: COMPLETED Source: [facility] Letter Text C TRACH+GC DNA SPEC QL MICHAEL+PROBE Collected: 01/05/2025 3:16 PM Status: F Source: C [facility] Order Comment: Specimen Type : SWAB Ordering Facility[facility] Address: [address] [place] [address] TYPE CODE TESTS RESULT OUT OF RANGE REFERENCE UNITS LAB 58284-9(LOINC) N gonorrhoea rRNA Spec Ql MICHAEL+probe Not detected Not detected LAB 70104-2(LOINC) C trach rRNA Spec Ql MICHAEL+probe Not detected Not detected Performed By: #### 08163-4, TRVAMP #### [facility] CLIA [id number] [address] [place] [address] OF [place] TRICHOMONAS VAGINALIS NAAT Collected: 0 01/05/2025 3:16 PM Status: F Source: [facility] Order Comment: Specimen Type : SWAB [facility]ing Facility[facility] Address: [address] [place] [address] TYPE CODE TESTS RESULT OUT OF RANGE REFERENCE UNITS LAB 89489-5([facility]) T vaginalis DNA Spec Ql MICHAEL+probe Not detected Not detected Performed By: #### 16680-6, TRVAMP #### [facility] CLIA [id number] [address] [place] [address] OF [place] CNOV Observed: 01/05/2025 1:30 PM Status: COMPLETED Source: [facility] Office Visit (OBGYWM) MARICRUZ TEJADA ([id number]) 1 F Date Time Provider Department 01/05/25 1:30 PM RAYA WHITMAN OBLEXI During your visit today, we recorded the following information about you: Blood pressure Weight 128/72 69.9 kg Raya Whitman APRN.CNM 01/05/2025 4:06 PM Signed Maricruz presents today for IUD insertion for contraception. Patient's last menstrual period was 11/19/2024 (within days). GC/chlamydia: Last tested 2022, agreeable to testing today. test: negative Side effects including irregular bleeding were discussed with the patient. The patient understands that it should be removed in 8 years or sooner if the patient desires a . IUD source: office provided IUD lot #: [id number] Exp date: 02/16/2027 UNIVERSAL PROTOCOL / SAFETY [...] complete pap smear at that time. Raya Whitman APRN.Abran Connors MA 01/05/2025 1:20 PM Signed POST IUD [...] please contact the office. Referring Provider: RAYA WHITMAN [[id number]] Allergies As of Date: 01/05/2025 Noted Allergy [...] 1 EachRfl: 0 UA DIP,URINE HCG (POC) [8700995] Order #: [id number]. #:[id number] GONORRHEA/CHLAMYDIA NAAT [SQGCCT] Order #: [id number]. #:[id number] TRICHOMONAS VAGINALIS NAAT [SQTRVAMP] Order #: [id number]. #:[id number] Prescriptions as of 01/05/2025 - levonorgestrel (MIRENA) [...] once daily. Problem List As Of Date 01/05/2025 Noted Resolved Tabor's fracture of base of [...] Disorder of right rotator cuff [M67.911] 09/02/2024 Other instructions from your clinician: POST IUD INSTRUCTIONS You may have irregular [...] any additional questions, please contact the office. Prescriptions ordered this encounter Disp Refills Start End LEVONORGESTREL 21 MCG/24 HR (UP TO 8* 01/05/2025 01/05/2025 Route: INTRAUTERINE LEVONORGESTREL 21 MCG/24 HR (UP TO 8* 1 Ea* 0 01/05/2025 01/03/2033 Class: In Office Route: INTRAUTERINE Si Each by INTRAUTERINE route as directed. Disposition: Return for Annual exam with NAHID in 1-2 months. Follow-up and Disposition History for Encounter Date Provider Department Center 01/05/2025 [id number] WHITMAN [facility] Encounter Status:Closed by RAYA WHITMAN on 01/05/25 PROGRESS Observed: 01/05/2025 1:20 PM Status: COMPLETED Source: [facility] ID: [id number] Author: RAYA WHITMAN APRN.CNM Service: ? Author Type: Sales Performance Analyst Type: Progress Notes Filed: 01/05/2025 16:06 Note [...] IUD source: office provided IUD lot #: [id number] Exp date: 02/16/2027 UNIVERSAL PROTOCOL / SAFETY [...] complete pap smear at that time. Raya Whitman APRN.CNM PROGRESS Observed: 12/26/2024 9:18 AM Status: COMPLETED Source: [facility] ID: [id number] Author: JAZLYN BERMUDEZ APRN.FREELANCE RECRUITER Service: ? Author Type: Nurse Practitioner Type: [...] blurry vision, edema. Would like a new golf cart repairer because her's is moving, does not have [...] than March. - LISINOPRIL 20 MG TABLET Jazlyn Bermudez APRN.CNP Attending Note I have personally performed a face to face assessment of the patient and have reviewed the TARIQ note and agree. Other additions or changes: As edited Signature: Jazlyn Bermudez Date: 12/26/2024 Time: 9:46 AM KELIN Observed: 12/26/2024 9:00 AM Status: COMPLETED Source: [facility] TE[facility],MARICRUZ ([id number]) 1 F Date Time Provider Department 12/26/24 9:00 AM [facility] During your visit today, we recorded the following information about you: Pulse Blood pressure Weight 91/minute 142/96 68.5 kg Jazlyn Bermudez APRN.CNP 12/26/2024 9:47 AM Signed Chief Complaint Patient presents with: Follow Up: Hypertension HPI Maricruz Tejada is a 19 year old female who presents here today for Above Complaints. One week ago passed out while working-out, went home and rested. Reports headaches daily. Reports palpitations daily when she's up doing stuff. Denies blurry vision, edema. Would like a new golf cart repairer because her's is moving, does not have [...] than March. - LISINOPRIL 20 MG TABLET Jazlyn Bermudez APRN.FREELANCE RECRUITER Attending Note I have personally performed a face to face assessment of the patient and have reviewed the TARIQ note and agree. Other additions or changes: As edited Signature: Jazlyn Bermudez Date: 12/26/2024 Time: 9:46 AM Allergies As of Date: 12/26/2024 Noted Allergy Reaction CODEINE 07/03/2007 TRAMADOL 06/30/2014 9 - Itching 14 - Other: See Comments Comments: Dizziness Date Reviewed: 12/26/2024 Reviewed by: Jazlyn Bermudez APRN.FREELANCE RECRUITER - Fully Assessed Reason for Visit: Follow Up [171] Cmt: Hypertension Primary Visit Diagnosis:Hypertension, essential [I10] Order(s):lisinopril (ZESTRIL) 20 mg tabletTake 1 tablet by mouth once daily.Disp: 30 tabletRfl: 2 Prescriptions as of 12/26/2024 - lisinopril (ZESTRIL) 20 mg tablet Take [...] Disorder of right rotator cuff [M67.911] 09/02/2024 Prescriptions ordered this encounter Disp Refills Start End LISINOPRIL 20 MG TABLET 30 t* 2 12/26/2024 03/26/2025 Route: ORAL Sig: Take 1 tablet by mouth once daily. Medications Discontinued During This Encounter Prescriptions - lisinopril (ZESTRIL) 5 mg tablet (Discontinued) Take 1 tablet by mouth once daily. - norethindrone (AYGESTIN) 5 mg tablet (Discontinued) Take 1 tablet by mouth once daily. Level of Service: OFFICE/OUTPATIENT ESTABLISHED LOW MDM 20 MIN [09147] Disposition: Return in about 1 month (around 01/23/2025) for BP, medication f/u. Follow-up and Disposition History for Encounter Date Provider Department Center 12/26/2024 [id number], REBEKAH FAMAUSTYN Alvaro [facility] Encounter Status:Closed by JAZLYN BERMUDEZ on 12/26/24 CHAYO Observed: 12/26/2024 12:00 AM Status: COMPLETED Source: [facility] Telephone (FAMPWS) MARICRUZ TEJADA ([id number]) 1 F Date Time Provider Department 12/26/24 JAZLYN BERMUDEZ During your visit today, we recorded the following information about you: Jazlyn Bermudez APRN.CNP 12/26/2024 9:56 AM Signed Patient's cardiology consult [...] to get her seen sooner than March? RAVEN Gallardo Michelle 12/30/2024 8:41 AM Signed 1st attempt LVM [...] Comments: Dizziness Date Reviewed: 12/26/2024 Reviewed by: Jazlyn Bermudez APRN.CNP - Fully Assessed Reason for Visit: Consult [...] rotator cuff [M67.911] 09/02/2024 Encounter Status:Closed by JAZLYN BERMUDEZ on 01/06/25 PROGRESS Observed: 12/22/2024 9:02 AM Status: COMPLETED Source: [facility] ID: [id number] Author: DAVIDSON MCARTHUR MD Service: ? Author Type: Physician [...] her back after the MRI scans obtained. Davidson Mcarthur MD PROGRESS Observed: 12/22/2024 8:37 AM Status: COMPLETED Source: [facility] HNO ID: [id number] Author: ALDO PRIETO MA Service: ? Author Type: Music Professionals Type: Progress Notes Filed: 12/22/2024 09:05 Note [...] Negative for excessive bleeding, clots, bleeding disorders. CNOV Observed: 12/22/2024 8:30 AM Status: COMPLETED Source: [facility] Office Visit (AGHWG1) MARICRUZ TEJADA ([id number]) 1 F Date Time Provider Department 12/22/24 8:30 AM DAVIDSON MCARTHUR AGHWG1 During your visit today, we [...] Negative for excessive bleeding, clots, bleeding disorders. Davidson Mcarthur MD 12/22/2024 9:05 AM Signed Chief [...] her back after the MRI scans obtained. Davidson Mcarthur MD Referring Provider: SELF [200] Allergies As of Date: 12/22/2024 Noted Allergy Reaction CODEINE 07/03/2007 TRAMADOL 06/30/2014 9 - Itching 14 - Other: See Comments Comments: Dizziness Date Reviewed: 12/22/2024 Reviewed by: Aldo Prieto MA - Fully Assessed Reason for Visit: New [550030] Pain [78] Primary Visit Diagnosis:Superior glenoid labrum lesion of right shoulder, initial encounter [S43.431A] Order(s):XR SHOULDER GENERAL 3V OR MORE AP/TRUE AP/OTHER RIGHT [8738665] Order #: [id number] MRI ARTHROGRAM SHOULDER RIGHT [0052692] Order #: [id number] FUTURE XR INJ ARTHROGRAM SHOULDER RIGHT [4720168] Order #: [id number] FUTURE Prescriptions as of 12/22/2024 - tretinoin (RETIN-A) 0.025 % topical cream [...] once daily. Problem List As Of Date 12/22/2024 Noted Resolved Tabor's fracture of base of [...] rotator cuff [M67.911] 09/02/2024 Encounter Status:Closed by DAVIDSON MCARTHUR on 12/22/24 CNOV Observed: 12/17/2024 1:45 PM Status: COMPLETED Source: [facility] Office Visit (OBGYWM) MARICRUZ TEJADA ([id number]) 1 F Date Time Provider Department 12/17/24 1:45 PM RAYA WHITMAN OBGYWM During your visit today, we recorded the following information about you: Blood pressure Weight Last Period 144/90 69.9 kg 11/19/24 Raya Whitman APRN.CNM 12/17/2024 4:36 PM Signed Maricruz Tejada [...] L0 SAB0 IAB0 Ectopic0 Multiple0 Live Births0 Imaging Tech History LMP: 11/19/2024 (Within Days), Having periods Age at Menarche: Age at First : Age at Menopause: Imaging Tech History Comments: Sexual Activity: Yes; Male Contraception: [...] Negative Negative Ketones, Urine Negative Negative Specific [place], Ur 1.005 - 1.030 1.025 Hemoglobin/Blood,Ur Negative [...] 8 - 15 mmol/L 12 eGFR >=60 mL/min/1.73m? 120 WBC 3.70 - 11.00 k/uL 5.49 [...] had irregular heavy bleeding will order testing JUJU Boss Jessica, APRN.CNM 12/17/2024 4:36 PM Signed -Please check with your insurance on the coverage of Mirena IUD. -Call on first day of next period to schedule appointment for insertion of Mirena IUD. -You should also take 2 ibuprophen(Advil) 30minutes prior to appointment to decrease cramping. -Please review the entire booklet on Mirena IUD and feel free to call me with questions. Referring Provider: JAZLYN BERMUDEZ [[id number]] Allergies As of Date: 12/17/2024 Noted Allergy Reaction CODEINE 07/03/2007 TRAMADOL 06/30/2014 9 - Itching 14 - Other: See Comments Comments: Dizziness Date Reviewed: 12/17/2024 Reviewed by: Erin Ace MA - Fully Assessed Reason for Visit: Discussion [813] Cmt: menses Primary Visit Diagnosis:Insulin resistance [E88.819] Other Visit Diagnoses: control counseling [Z30.09] Breakthrough bleeding on control pills [N92.1] Order(s):CONSULT TO GYNECOLOGY [9013] Order #: [id number]: 1 VON WILLEBRAND DX PNL (LIMITED) [SQVWFPR] Order #: [id number] FUTURE INSERT INTRAUTERINE DEVICE [8290510] Order #: [id number] Prescriptions as of 12/17/2024 - tretinoin (RETIN-A) 0.025 % topical cream [...] once daily. Problem List As Of Date 12/17/2024 Noted Resolved Tabor's fracture of base of [...] Disorder of right rotator cuff [M67.911] 09/02/2024 Other instructions from your clinician: -Please check with your insurance on the coverage of Mirena IUD. -Call on first day of next period to schedule appointment for insertion of Mirena IUD. -You should also take 2 ibuprophen(Advil) 30minutes prior to appointment to decrease cramping. -Please review the entire booklet on Mirena IUD and feel free to call me with questions. Disposition: Return for IUD with NAHID in 2 weeks. Follow-up and Disposition History for Encounter Date Provider Department Center 12/17/2024 [id number] WHITMAN [facility] Encounter Status:Closed by RAYA WHITMAN on 12/17/24 PROGRESS Observed: 12/17/2024 1:42 PM Status: COMPLETED Source: [facility] ID: [id number] Author: RAYA WHITMAN APRN.ETHAN Service: ? Author Type: Sales Performance Analyst Type: Progress Notes Filed: 12/17/2024 16:36 Note [...] L0 SAB0 IAB0 Ectopic0 Multiple0 Live Births0 Imaging Tech History LMP: 11/19/2024 (Within Days), Having periods Age at Menarche: Age at First : Age at Menopause: Imaging Tech History Comments: Sexual Activity: Yes; Male Contraception: [...] Negative Negative Ketones, Urine Negative Negative Specific [place], Ur 1.005 - 1.030 1.025 Hemoglobin/Blood,Ur Negative [...] 8 - 15 mmol/L 12 eGFR >=60 mL/min/1.73m? 120 WBC 3.70 - 11.00 k/uL 5.49 [...] irregular heavy bleeding will order testing Raya Whitman APRN.CNM PROGRESS Observed: 12/10/2024 2:37 PM Status: COMPLETED Source: [facility] ID: [id number] Author: FEDERICO MONROY DO Service: ? Author [...] DATE: December 10, 2024 TIME: 2:37 PM CNOV Observed: 12/10/2024 2:30 PM Status: COMPLETED Source: [facility] Office Visit (FHWS) MARICRUZ TEJADA ([id number]) 1 F Date Time Provider Department 12/10/24 2:30 PM FEDERICO MONROY During your visit today, we recorded the following information about you: Mercedes DinorahHAMLET 12/10/2024 2:40 PM Signed Patient presents with: [...] DATE: December 10, 2024 TIME: 2:37 PM Allergies As of Date: 12/10/2024 Noted Allergy Reaction CODEINE 07/03/2007 TRAMADOL 06/30/2014 9 - Itching 14 - Other: See Comments Comments: Dizziness Date Reviewed: 12/10/2024 Reviewed by: Dinorah Mercedes MA - Fully Assessed Reason for Visit: 14 weeks 5 days post visit right shoulder [Other] Cmt: rotator cuff disorder Primary Visit Diagnosis:Rotator cuff disorder, right [M67.911] Prescriptions as of 12/10/2024 - PARoxetine (PAXIL) [...] once daily. Problem List As Of Date 12/10/2024 Noted Resolved Tabor's fracture of base of [...] rotator cuff [M67.911] 09/02/2024 Encounter Status:Closed by FEDERICO MONROY V on 12/10/24 PROGRESS Observed: 12/10/2024 2:25 PM Status: COMPLETED Source: [facility] ID: [id number] Author: DINORAH MERCEDES MA Service: ? Author Type: Music Professionals Type: Progress Notes Filed: 12/10/2024 14:40 Note [...] for the pain and does not help. CHAYO Observed: 12/03/2024 12:00 AM Status: COMPLETED Source: [facility] Telephone (BRENDAWS) MARICRUZ TEJADA ([id number]) 1 F Date Time Provider Department 12/03/24 JAZLYN BERMUDEZ During your visit today, we recorded the following information about you: Jazlyn Bermudez APRN.CNP 12/03/2024 6:06 PM Signed Please let her know that I was able to speak with Raya Whitman and she is willing to see her. Please assist her to schedule this appt. RAVEN Gallardo [place], MA 12/03/2024 6:[address] consult to integrated circuit ic layout designer HAMLET Murray [place], MA 12/04/2024 8:11 AM Signed Please schedule pt with REFUGE WORKER HAMLET Murray Sherrie 12/04/2024 9:31 AM Signed 1st attempt left message to return call to schedule consult to [facility] Allergies As of Date: 12/03/2024 Noted Allergy Reaction CODEINE 07/03/2007 TRAMADOL 06/30/2014 9 - Itching 14 - Other: See Comments Comments: Dizziness Date Reviewed: 11/25/2024 Reviewed by: Jazlyn eBrmudez APRN.FREELANCE RECRUITER - Fully Assessed Reason for Visit: Appointment [186] Primary Visit Diagnosis:Insulin resistance [E88.819] Other Visit Diagnoses:Menorrhagia with irregular cycle [N92.1] Abnormal menstrual cycle [N92.6] Order(s):CONSULT TO GYNECOLOGY [9009] Order #: [id number]: 1 FUTURE Prescriptions as of 12/10/2024 - [...] rotator cuff [M67.911] 09/02/2024 Encounter Status:Closed by JAZLYN BERMUDEZ on 12/10/24 PROGRESS Observed: 12/02/2024 8:50 PM Status: COMPLETED Source: [facility] HNO ID: [id number] Author: SELENA LEONARD MD Service: ? Author Type: Physician Type: Progress Notes Filed: 12/02/2024 20:54 Note Text: The patient presents for requested ultrasound. Full report available in the Imaging tab in Epic. Selena Leonard MD [id number] Observed: 11/27/2024 9:44 AM Status: COMPLETED Source: [facility]NO ID: [id number] Author: RAYA AMBRIZ PT Service: ? Author Type: Physical Therapist Type: [id number] Filed: 11/27/2024 09:44 Note Text: [facility] Physical Therapy Plan of Care Certification Patient Name: Maricruz Tejada : 2005 CCF #: [id number] Date: 11/27/2024 To: Federico Monroy V, DO From Therapist: Raya Ambriz PT RE: Patient Certification/ Recertification Your review, approval and electronic signature are required in order to comply with Payor: [facility] / Plan: [facility] [employer] [facility] / Product Type: HMO / [...] 11/27/2024 and treatment included: Therapeutic exercise and Self-correction management. Goals for Episode of Care: established 09/02/24 Goals updated on 10/01/2024. Goals updated on 11/27/2024. [place] in home exercise program. -- MET Patient [...] reviewed the treatment plan for Maricruz Tejada, CCF# [id number] for the period of 11/27/24 -- 11/27/24, established on 11/27/2024. Signature certifies the need for therapy services. CNTHERAPY Observed: 11/27/2024 9:30 AM Status: COMPLETED Source: [facility] OT/PT/Speech Visit (PTWS) MARICRUZ TEJADA ([id number]) 1 F Date Time Provider Department 11/27/24 9:30 AM RAYA AMBRIZ Date Time Provider Department Mentcle 11/27/2024 9:30 AM [id number] AMBRIZ Reason for Visit: PT Discharge [752] Primary Visit Diagnosis:Disorder of right rotator cuff [M67.911] Allergies As of Date: 11/27/2024 Noted Allergy Reaction CODEINE 07/03/2007 TRAMADOL 06/30/2014 9 - Itching 14 - Other: See Comments Comments: Dizziness Date Reviewed: 11/25/2024 Reviewed by: Jazlyn Bermudez APRN.FREELANCE RECRUITER - Fully Assessed Prescriptions as of 11/27/2024 [...] tablet by mouth once daily. Letter Text PROGRESS Observed: 11/27/2024 9:27 AM Status: COMPLETED Source: [facility] HNO ID: [id number] Author: RAYA AMBRIZ, PT Service: ? Author [...] 11/27/2024 and treatment included: Therapeutic exercise and Self-correction management. Goals for Episode of Care: established 09/02/24 Goals updated on 10/01/2024. Goals updated on 11/27/2024. [place] in home exercise program. -- MET Patient [...] and function . Patient education as noted. Self-Retirement Management: Skilled Intervention: Skilled judgment in the [...] Stop Time : 949 Raya Ambriz PT CNPN Observed: 11/26/2024 12:00 AM Status: COMPLETED Source: [facility] Telephone (OBGYWM) MARICRUZ TEJADA ([id number]) 1 F Date Time Provider Department 11/26/24 OSWALDO BUSTAMANTE OBGYWM During your visit today, we recorded [...] Comments: Dizziness Date Reviewed: 11/25/2024 Reviewed by: Jazlyn Bermudez APRN.FREELANCE RECRUITER - Fully Assessed Reason for Visit: Appointment [...] Encounter Status:Closed by MARITZA CHING on 11/26/24 URINALYSIS COMPLETE PNL UR Collected: 11/25/2024 11:1 4 AM Status: F Source: [facility] Order Comment: Specimen Type : URINE SPECIMEN [facility] Facility[facility] Address: [address] [place] [address] TYPE CODE TESTS RESULT OUT OF RANGE REFERENCE UNITS LAB 5778-6(LOINC) Color Ur Yellow Yellow LAB 03463-5(LOINC) Clarity Spec Clear Clear LAB 5792-7(LOINC) Glucose Ur Strip-mCnc Negative Negative LAB 5770-3(LOINC) Bilirub Ur Ql Strip Negative Negative LAB 2514-8(LOINC) Ketones Ur Strip Negative Negative LAB 5811-5(LOINC) Sp Gr Ur Strip 1.025 1.005-1.030 LAB 5794-3(LOINC) Hgb Ur Ql Strip Negative Negative LAB 5803-2(LOINC) pH Ur Strip 6.5 <8.5 LAB 5804-0(LOINC) Prot Ur Strip-mCnc Trace Abnormal Negative LAB 5818-0(LOINC) Urobilinogen Ur Strip 0.2 EU/dL 0.2-1.0 EU/dL LAB 5802-4(LOINC) Nitrite Ur Ql Strip Negative Negative LAB 5799-2(LOINC) Leukocyte esterase Ur Ql Strip Trace Abnormal Negative LAB 5821-4(LOINC) WBC #/area UrnS HPF 0-5 /HPF 0-5 /HPF LAB 53641-7([facility]) RBC #/area UrnS HPF 0-2 /HPF 0-2 /HPF LAB 5769-5([facility]) Bacteria #/area UrnS HPF Negative Negative /HPF LAB 5787-7([facility]) Epi Cells #/area UrnS HPF None Seen /HPF LAB 5796-8([facility]) Hyaline Casts #/area UrnS LPF 0 /LPF 0 /LPF Performed By: #### 77526-9 # ### [facility] CLIA [id number] [address] [place], [place] [address] [address] [place] CBC PNL BLD AUTO Collected: 5 11:11 AM Status: F Source: [facility] Order Comment: Specimen Type : BLOOD SPECIMEN [facility] Address: [address] [place] [address] TYPE CODE TESTS RESULT OUT OF RANGE REFERENCE UNITS LAB 6690-2([facility]) WBC # Bld Auto 5.49 3.70-11.00 k/uL LAB 789-8([facility]) RBC # Bld Auto 4.64 3.90-5.20 m/uL LAB 718-7([facility]) Hgb Bld-mCnc 13.5 11.5-15.5 g/dL LAB 4544-3([facility]) Hct VFr Bld Auto 40.8 36.0-46.0 % LAB 787-2([facility]) MCV RBC Auto 87.9 80.0-100.0 fL LAB 785-6([facility]) MCH RBC Qn Auto 29.1 26.0-34.0 pg LAB 786-4([facility]) MCHC RBC Auto-mCnc 33.1 30.5-36.0 g/dL LAB 34298-3([facility]) RDW RBC-Rto 11.6 11.5-15.0 % LAB 777-3([facility]) Platelet # Bld Auto 235 150-400 k/uL LAB 15507-2([facility]) PMV Bld Auto 10.0 9.0-12.7 fL LAB 771-6([facility]) nRBC # Bld Auto <0.01 <0.01 k/uL Performed By: #### 61465-0 # ### [facility] CLIA [id number] [address] [place] [address] OF [facility] INSULIN SERPL-ACNC Collected: 11:11 AM Status: F Source: [facility] Comment: Specimen Type : BLOOD SPECIMEN Ordering Facility[facility] Address: [address] [place] [address] TYPE CODE TESTS RESULT OUT OF RANGE REFERENCE UNITS LAB 21543-8(LOINC) Insulin SerPl-aCnc 9.7 3.0-25.0 mU/L Performed By: #### 80139-8 # ### [facility] CLIA [id number] [address] [place] [address] HYDROXYPROGESTERONE-17 Collected: 11/25 11:11 AM Status: F Source: [facility] Comment: Specimen Type : BLOOD SPECIMEN Ordering Facility[facility] Address: [address] [place] [address] TYPE CODE TESTS RESULT OUT OF RANGE REFERENCE UNITS LAB HPROG 17-HYDROXYPROG ESTERONE QUANTITATIVE BY HPLC-MS/MS, SERUM OR PLASMA 17.36 <=206.00 ng/dL Result Comment: INTERPRETIVE INFORMATION for 17-Hydroxyprogesterone in females: Follicular 15 to 70 ng/dL Luteal 35 to 290 ng/dL REFERENCE INTERVAL: 17-Hydroxyprogesterone Qnt, HPLC-MS/MS Access complete set of age- and/or gender-specific reference intervals for this test in the [facility] Test Directory ([employer]). This test was developed and its performance characteristics determined by [facility]. It has not been cleared or approved by the US Food and Drug Administration. This test was performed in a CLIA certified laboratory and is intended for clinical purposes. Performed By: [email or web address] [address] [place] [address] Configurator: Kuldeep Allan MD, PhD CLIA Number: [id number] Performed By: #### HPROG ### # [facility] CLIA [id number] [address] [place] [address] COMP METAB 2000 PNL SERPL Collected: 11:11 AM Status: F Source: [facility] Order Comment: Specimen Type : BLOOD SPECIMEN Ordering Facility[facility] Address: [address], [place] [address] TYPE CODE TESTS RESULT OUT OF RANGE REFERENCE UNITS LAB 2885-2(LOINC) Prot SerPl-mCnc 7.7 6.3-8.0 g/dL LAB 1751-7(LOINC) Albumin SerPl-mCnc 4.9 3.9-4.9 g/dL LAB 56550-2(LOINC) Calcium SerPl-mCnc 9.8 8.5-10.2 mg/dL LAB 1975-2(LOINC) Bilirub SerPl-mCnc 0.4 0.2-1.3 mg/dL LAB 6768-6(LOINC) ALP SerPl-cCnc 72 34-123 U/L LAB 1920-8(LOINC) AST SerPl-cCnc 22 13-35 U/L LAB 1742-6(LOINC) ALT SerPl-cCnc 20 7-38 U/L LAB 2345-7(LOINC) Glucose SerPl-mCnc 90 74-99 mg/dL Result Comment: The [place] Diabetes Association (ADA) provides guidance for cutoff [...] Standards of Medical Care in Diabetes 2016, [place] Diabetes Association. Diabetes Care. 2016.39(Suppl 1). LAB 3094-0(LOINC) BUN SerPl-mCnc 15 7-21 mg/ dL LAB 2160-0(LOINC) Creat SerPl-mCnc 0.73 0.58-0.96 mg/dL LAB 2951-2(LOINC) Sodium SerPl-sCnc 139 136-144 mmol/L LAB 2823-3(LOINC) Potassium SerPl-sCnc 4.0 3.7-5.1 mmol/L LAB 2075-0(LOINC) Chloride SerPl-sCnc 104 98-107 mmol/L LAB 2027-9(LOINC) CO2 SerPl-sCnc 23 22-30 mmo l/L LAB 56726-7(LOINC) Anion Gap SerPl-sCnc 12 8-15 mmol/L LAB 99399-2(LOINC) Creatinine + eGFR Pnl SerPlBld 120 >=60 mL/min/1 .73m??? Result Comment: Estimated Gl omerular Filtration Rate (eGFR) is calculated using the 2020 CKD-EPI creatinine equation. This equation utilizes serum creatinine, sex, and age as parameters. The creatinine assay has traceable calibration to isotope dilution-mass spectrometry. Refer to KDIGO guidelines for clinical interpretation. In patients with unstable renal function, e.g. those with acute kidney injury, the eGFR may not accurately reflect actual GFR. Performed By: #### 2842-3, 5 189-8, DHEAS, 42160-1 #### [facility] CLIA [id number] [address] [place] [address] [place] IRON+TIBC PNL SERPL Collected: 11/25/19 11:11 AM Status: F Source: [facility] Order Comment: Specimen Type : BLOOD SPECIMEN [facility] Address: [address] [place] [address] TYPE CODE TESTS RESULT OUT OF RANGE REFERENCE UNITS LAB 2498-4([facility]) Iron SerPl-mCnc 83 41-186 ug/dL LAB 2500-7(LOINC) TIBC SerPl-mCnc 370 232-386 ug/dL LAB 30171-8([facility]) Iron/TIBC SerPl-sRto 22.4 15.0-57.0 % Performed By: #### 2842-3, 5 189-8, DHEAS, 25453-7 #### [facility] CLIA [id number] [address] [place] [address] [place] DHEA-S BLD Collected: 5 11:11 AM Status: F Source: [facility] Order Comment: Specimen Type : BLOOD SPECIMEN Ordering Facility: [facility] Address: [address] [place] [address] TYPE CODE TESTS RESULT OUT OF RANGE REFERENCE UNITS LAB 2191-5(LOINC) DHEA-S SerPl-mCnc 298.4 148.0-407.0 ug/dL Result Comment: Reference ra nges are age and gender specific. For additional information, reference range tables can be found in the laboratory test directory. The normal values are based on the following source: Dehydroepiandrosterone sulfate (DHEA S) [package insert V 17.0 Guatemalan]. [employer], [place], [place]: June 2013. Performed By: #### 2842-3, 5 0190-8, DHEAS, 18002-8 #### [facility] CLIA [id number] [address] [place] [address] [place] PROLACTIN SERPL-MCNC Collected: 025 11:11 AM Status: F Source: [facility] Order Comment: Specimen Type : BLOOD SPECIMEN [facility] Address: [address] [place] [address] TYPE CODE TESTS RESULT OUT OF RANGE REFERENCE UNITS LAB 2842-3(LOINC) Prolactin SerPl-mCnc 14.3 4.4-33.8 ng/mL Result Comment: Prolactin te st is performed using the [employer] Electrochemiluminescence Immunoassay method. Results obtained with different methods or kits cannot be used interchangeably. Performed By: #### 2842-3, 5 0190-8, DHEAS, 82669-2 #### [facility] CLIA [id number] [address] [place] [address] [place] FERRITIN SERPL-MCNC Collected: 11/25/19 25 11:11 AM Status: F Source: [facility] Order Comment: Specimen Type : BLOOD SPECIMEN Order[facility] Address: [address] [place] [address] TYPE CODE TESTS RESULT OUT OF RANGE REFERENCE UNITS LAB 2276-4(LOINC) Ferritin SerPl-mCnc 35.6 14.7-205.1 ng/mL Performed By: #### 3053-6, 3 024-7, 3016-3, 2276-4 #### [facility] CLIA [id number] [address] [place] [address] [place] T4 FREE SERPL-MCNC Collected: 5 11:11 AM Status: F Source: [facility] Order Comment: Specimen Type : BLOOD SPECIMEN Ordering [facility]: [facility] Address: [address] [place] [address] TYPE CODE TESTS RESULT OUT OF RANGE REFERENCE UNITS LAB 3024-7(LOINC) T4 Free SerPl-mCnc 1.1 0.9-1.7 ng/dL Performed By: #### 3053-6, 3 024-7, 3016-3, 2276-4 #### [facility] CLIA [id number] [address] [place] [address] [place] T3 SERPL-MCNC Collected: 5 11:11 AM Status: F Source: [facility] Order Comment: Specimen Type : BLOOD SPECIMEN Order[facility] Address: [address] [place] [address] TYPE CODE TESTS RESULT OUT OF RANGE REFERENCE UNITS LAB 3053-6(LOINC) T3 SerPl-mCnc 110 79-165 ng/d L Performed By: #### 3053-6, 3 024-7, 3016-3, 2276-4 #### [facility] CLIA [id number] [address] [place] [address] [place] TSH SERPL-ACNC Collected: 5 11:11 AM Status: F Source: [facility] Order Comment: Specimen Type : BLOOD SPECIMEN Ordering [facility] Address: [address] [place] [address] TYPE CODE TESTS RESULT OUT OF RANGE REFERENCE UNITS LAB 3016-3(LOINC) TSH SerPl-aCnc 1.720 0.270-4.200 mIU/L Result Comment: If the patie nt is , TSH reference range varies by gestational period: First Trimester (weeks 9-12): 0.180-2.990 mIU/L Second Trimester: 0.110-3.980 mIU/L Third Trimester: 0.480-4.710 mIU/L Yury Marlow et al. A Practical Approach for the Verifications and Determination of Site- and Trimester-Specific Reference Intervals for Thyroid Function tests in . Thyroid, 2019:29:3:412-420. Steffen Barton, et al. 2017 Guidelines of the [place] Thyroid Association for the Diagnosis and Management of Thyroid Disease during and the . Thyroid, 2017:27:3:315-389. Performed By: #### 3053-6, 3 024-7, 3016-3, 2276-4 #### [facility] CLIA [id number] [address] [place] [address] [place] DEPRECATED HGB A1C BLD Collected: 11/25 11:11 AM Status: F Source: [facility] Comment: Specimen Type : BLOOD SPECIMEN Ordering [facility] Address: [address] [place] [address] TYPE CODE TESTS RESULT OUT OF RANGE REFERENCE UNITS LAB 4548-4(LOINC) HbA1c MFr Bld 4.8 4.3-5.6 % Result Comment: [place] Radha betes Association guidelines indicate that patients with HgbA1c in the range 5.7-6.4% are at increased risk for development of diabetes, and intervention by lifestyle modification may be beneficial. HgbA1c greater or equal to 6.5% is considered diagnostic of diabetes. LAB 61800-6(LOINC) Est. average glucose Bld gHb Est-mCnc 91 mg/dL Result Comment: eAG: (Estima donna average glucose) is a calculated value from HgbA1c and is auto service representative of the average blood glucose level in the last 2-3 month period. Performed By: #### 55546-2 # ### [facility] CLIA [id number] [address] [place] [address] [place] TESTOSTERONE, FREE AND TOTAL , BY EQUILIBRIUM ULTRAFILTRATION MASS SPECTROMETRY Collected: 11/25/2024 11:11 AM Status: F Source: [facility] Order Comment: Specimen Type : BLOOD SPECIMEN Ordering Facility: [facility] Address: [address], [place] [address] TYPE CODE TESTS RESULT OUT OF RANGE REFERENCE UNITS LAB 2986-8(LOINC) Testost SerPl-mCnc 19.1 10.0-55.0 ng/dL LAB 2991-8(LOINC) Testost Free SerPl-mCnc 0.49 0.10-0.85 ng/dL LAB 56215-3(LOINC) Testost Free MFr SerPl 2.57 0.50-2.80 % Performed By: #### TFTEST ## ## [facility] CLIA [id number] [address] [facility] [place] [address] PROGRESS Observed: 11/25/2024 10:16 AM Status: COMPLETED Source: [facility] HNO ID: [id number] Author: JAZLYN BERMUDEZ APRN.FREELANCE RECRUITER Service: ? Author Type: Nurse Practitioner Type: [...] Vaccine(2023- season) Never done GC (Gonorrhea) Screening (-) due on 09/12/2024 Chlamydia Screening (-) due on 09/12/2024 DTaP,Tdap,Td Vaccine(7 - Td [...] - T4 FREE/FREE THYROXINE - DHEA-S BLD Jazlyn Bermudez APRN.CNP Greater than 50% of 43-minute visit spent face to face with patient in counseling and education. CNOV Observed: 11/25/2024 9:40 AM Status: COMPLETED Source: [facility] MALLORYMARICRUZ ([id number]) 1 F Date Time Provider Department 11/25/24 9:40 AM JAZLYN BERMUDEZ During your visit today, we recorded the following information about you: Pulse Respiration Blood pressure Weight 83/minute 16/minute 142/96 68.5 kg Jazlyn Bermudez APRN.CNP 11/25/2024 4:15 PM Signed Chief Complaint Patient [...] with aura PMDD (premenstrual dysphoric disorder) 2018 Syncope and collapse Previous Surgical History PAST [...] - T4 FREE/FREE THYROXINE - DHEA-S BLD Jazlyn Bermudez APRN.CNP Greater than 50% of 43-minute visit spent face to face with patient in counseling and education. Allergies As of Date: 11/25/2024 Noted Allergy Reaction CODEINE 07/03/2007 TRAMADOL 06/30/2014 9 - Itching 14 - Other: See Comments Comments: Dizziness Date Reviewed: 11/25/2024 Reviewed by: Jazlyn Bermudez APRN.FREELANCE RECRUITER - Fully Assessed Reason for Visit: BP Check [142] Primary Visit Diagnosis:Hypertension, essential [I10] Other Visit Diagnoses:Palpitations [R00.2] Tachycardia [R00.0] Insulin resistance [E88.819] Menorrhagia with irregular cycle [N92.1] Abnormal menstrual cycle [N92.6] Order(s):INSULIN ASSAY BLOOD [SQINSULN] Order #: [id number] FUTURE HEMOGLOBIN A1C [RKRHC7S] Order #: [id number] FUTURE COMPREHENSIVE METABOLIC PANEL [SQCMP] Order #: [id number] FUTURE COMPLETE BLOOD COUNT [SQCBC] Order #: [id number] FUTURE URINALYSIS, WITH MICROSCOPIC [SQUAWMIC] Order #: [id number] FUTURE IRON AND TIBC [SQIRON] Order #: [id number] FUTURE FERRITIN [SQFERR] Order #: [id number] FUTURE PROLACTIN [SQPROL] Order #: [id number] FUTURE TESTOSTERONE, FREE AND TOTAL, BY EQUILIBRIUM ULTRAFILTRATION MASS SPECTROMETRY [SQTFTEST] Order #: [id number] FUTURE HYDROXYPROGESTERONE-17 [SQHPROG] Order #: [id number] FUTURE THYROID STIMULATING HORMONE [SQTSH] Order #: [id number] FUTURE T3 [SQT3] Order #: [id number] FUTURE T4 FREE/FREE THYROXINE [SQFT4] Order #: [id number] FUTURE DHEA-S BLD [SQDHEAS] Order #: [id number] FUTURE Prescriptions as of 11/25/2024 - PARoxetine (PAXIL) 10 mg tablet Take [...] once daily. Problem List As Of Date 11/25/2024 Noted Resolved Tabor's fracture of base of [...] Disorder of right rotator cuff [M67.911] 09/02/2024 Medications Discontinued During This Encounter Prescriptions - baclofen 10 mg tablet (Discontinued) Take 10 mg by mouth once daily as needed. Level of Service: OFFICE/OUTPATIENT ESTABLISHED HIGH MDM 40 MIN [59207] Disposition: Return in about 4 weeks (around 12/23/2024) for BP, medication f/u. Follow-up and Disposition History for Encounter Date Provider Department Center 11/25/2024 [id number], REBEKAH FAMPWS [facility] [place] Encounter Status:Closed by JAZLYN BERMUDEZ on 11/25/24 PROGRESS Observed: 10/21/2024 10:02 AM Status: COMPLETED Source: [facility] HNO ID: [id number] Author: JAZLYN BERMUDEZ APRN.FREELANCE RECRUITER Service: ? Author Type: Nurse Practitioner Type: [...] ER 100 MG TABLET,EXTENDED RELEASE 24 HR Jazlyn Bermudez APRN.MAYA CNOV Observed: 10/21/2024 10:00 AM Status: COMPLETED Source: [facility] MARICRUZ TEJADA ([id number]) 1 F Date Time Provider Department 10/21/24 10:00 AM JAZLYN BERMUDEZ During your visit today, we recorded the following information about you: Pulse Respiration Blood pressure Weight 117/minute 16/minute 146/97 67.9 kg Jazlyn Bermudez APRN.FREELANCE RECRUITER 10/22/2024 6:38 PM Signed Chief Complaint Patient [...] ER 100 MG TABLET,EXTENDED RELEASE 24 HR Jazlyn Bermudez APRN.FREELANCE RECRUITER Allergies As of Date: 10/21/2024 Noted Allergy Reaction CODEINE 07/03/2007 TRAMADOL 06/30/2014 9 - Itching 14 - Other: See Comments Comments: Dizziness Date Reviewed: 10/21/2024 Reviewed by: Jazlyn Bermudez APRN.FREELANCE RECRUITER - Fully Assessed Reason for Visit: Follow Up [171] Cmt: Hypertension and tachycardia, bp more elevated last couple weeks, migraines Visit Diagnoses:Depression, unspecified depression type [F32.A] Stress [F43.9] Hypertension, essential [I10] Palpitations [R00.2] Tachycardia [R00.0] Order(s):PARoxetine (PAXIL) 10 mg tabletTake 1 tablet by mouth once daily.Disp: 30 tabletRfl: 5 metoprolol succinate ER (TOPROL XL) 100 mgTake 1.5 tablets by mouth once daily.Disp: Rfl: Prescriptions as of 10/22/2024 - PARoxetine (PAXIL) 10 mg tablet Take 1 tablet by mouth once daily. - metoprolol succinate ER (TOPROL XL) 100 mg Take 1.5 tablets by mouth once daily. - baclofen 10 mg tablet Take 10 mg by mouth once daily as needed. - norethindrone (AYGESTIN) 5 mg tablet Take [...] once daily. Problem List As Of Date 10/21/2024 Noted Resolved Tabor's fracture of base of [...] Disorder of right rotator cuff [M67.911] 09/02/2024 Prescriptions ordered this encounter Disp Refills Start End PAROXETINE 10 MG TABLET 30 t* 5 10/21/2024 04/19/2025 Route: ORAL Sig: Take 1 tablet by mouth once daily. METOPROLOL SUCCINATE ER 100 MG TABLE* 10/21/2024 01/19/2025 Class: Med Update Route: ORAL Sig: Take 1.5 tablets by mouth once daily. Medications Discontinued During This Encounter Prescriptions - etodolac (LODINE) 400 mg tablet (Discontinued) Reported on 08/29/2024 - PARoxetine (PAXIL) 10 mg tablet (Discontinued) Take 1 tablet by mouth once daily. - metoprolol succinate ER (TOPROL XL) 100 mg (Discontinued) Take 1 tablet by mouth once daily. Level of Service: OFFICE/OUTPATIENT ESTABLISHED LOW MDM 20 MIN [15302] Disposition: Return in about 2 weeks (around 11/04/2024) for BP f/u. Follow-up and Disposition History for Encounter Date Provider Department Center 10/21/2024 [id number], REBEKAH FAMPWS [facility] Encounter Status:Closed by JAZLYN BERMUDEZ on 10/22/24 [id number] Observed: 10/01/2024 10:23 AM Status: COMPLETED Source: [facility] HNO ID: [id number] Author: RAYA AMBRIZ PT Service: ? Author Type: Physical Therapist Type: [id number] Filed: 10/01/2024 10:23 Note Text: [facility] Physical Therapy Plan of Care Certification Patient Name: Maricruz Tejada : 2005 [facility] #: [id number] Date: 10/01/2024 To: Federico Monroy V DO From Therapist: Raya Ambriz PT RE: Patient Certification/ Recertification Your review, approval and electronic signature are required in order to comply with Payor: [facility] / Plan: [facility] / Product Type: HMO / [...] Care: established 09/02/24 Goals updated on 10/01/2024. [place] in home exercise program. -- MET Patient [...] Patient to be seen for Therapeutic exercise (72678), Neuromuscular re-education (51442), Manual therapy (83237), Therapeutic activities (26529), Self-correction management (24672) PLAN FOR NEXT VISIT: assess symptom response to dry needling. consider levator insertion and scapular needling next visit For further details regarding this patient refer to the Physical Therapy electronically documented visit dated 10/01/2024. Provider Attestation I have reviewed the treatment plan for Maricruz Tejada CC# [id number] for the period of 10/01/24 -- 11/12/24, established on 10/01/2024. Signature certifies the need for therapy services. CNTHERAPY Observed: 10/01/2024 9:45 AM Status: COMPLETED Source: [facility] OT/PT/Speech Visit (PTWS) MARICRUZ TEJADA ([id number]) 1 F Date Time Provider Department 10/01/24 9:45 AM RAYA AMBRIZ Date Time Provider Department [place] 10/01/2024 9:45 AM [id number] AMBRIZ [place] Reason for Visit: PT Progress Note [4016] Primary Visit Diagnosis:Disorder of right rotator cuff [M67.911] Allergies As of Date: 10/01/2024 Noted Allergy Reaction CODEINE 07/03/2007 TRAMADOL 06/30/2014 9 - Itching 14 - Other: See Comments Comments: Dizziness Date Reviewed: 08/29/2024 Reviewed by: Daisy Bennett MA - Fully Assessed Prescriptions as of 10/01/2024 - PARoxetine (PAXIL) 10 mg tablet Take 1 tablet by mouth once daily.- baclofen 10 mg tablet Take 10 mg by mouth once daily as needed. - etodolac (LODINE) 400 mg tablet Take 1 tablet by mouth two times a day. - metoprolol succinate ER (TOPROL XL) 100 mg Take 1 tablet by mouth once daily.- norethindrone (AYGESTIN) 5 mg tablet Take 1 tablet by mouth once daily.- galcanezumab-gnlm (EMGALITY PEN) 120 mg/mL pen Inject [...] tablet Take 1 tablet by mouth once daily.- Cholecalciferol, Vitamin D3, 50 mcg (2,000 unit) cap Take 1 capsule by mouth once daily. - Norethindrone Acet-Ethinyl Est (JUNE,) 1-20 mg-mcg per tablet (Discontinued) Take 1 tablet by mouth once daily. PROGRESS Observed: 10/01/2024 9:42 AM Status: COMPLETED Source: [facility] ID: [id number] Author: RAYA AMBRIZ PT Service: ? Author [...] Care: established 09/02/24 Goals updated on 10/01/2024. [place] in home exercise program. -- MET Patient [...] Patient to be seen for Therapeutic exercise (33207), Neuromuscular re-education (85251), Manual therapy (17515), Therapeutic activities (60674), Self-correction management (59496) PLAN FOR NEXT VISIT: assess symptom response [...] anterior deltoid Needle length: 30mm 1.2 in. [place] used 2, needles removed 2. Dry needling technique used: Pistoning. Patient education on purpose, precautions, safety, risks, and other treatment options regarding dry needling. Verbal consent received. Self-Retirement Management: 1: instructed pt.to stretch every hour [...] Stop Time : 1020 Raya Ambriz PT THERAPY NT Observed: 09/17/2024 10:13 AM Status: COMPLETED Source: [facility] HNO ID: [id number] Author: RAYA AMBRIZ PT Service: ? Author Type: Physical Therapist Type: Therapy (PT/OT/Speech/Resp) Filed: 09/17/2024 10:14 Note Text: Program_ID:[id number] Access Code: [email or web address] URL: [email or web address] Date: 09-17-2024 Prepared By: Raya Ambriz Program [...] x weekly - 4 sets - reps PROGRESS Observed: 09/17/2024 9:45 AM Status: COMPLETED Source: [facility] HNO ID: [id number] Author: RAYA AMBRIZ PT Service: ? Author [...] sec hold 6: *Access Code: [email or web address] URL: [email or web address] Date: 09/17/2024 Prepared by: Raya Ambriz Exercises [...] and function . Patient education as noted. Self-Retirement Management: 1: advised pt. have her pt. [...] Time (minutes): 40 Session Start Time : 944 Session Stop Time : 1024 Raya Ambriz PT CNTHERAPY Observed: 09/17/2024 9:45 AM Status: COMPLETED Source: [facility] OT/PT/Speech Visit (PTWS) MARICRUZ TEJADA ([id number]) 1 F Date Time Provider Department 09/17/24 9:45 AM RAYA AMBRIZ Date Time Provider Department Center 09/17/2024 9:45 AM [id number] AMBRIZ Reason for Visit: Physical Therapy [503] Primary [...] Take 1 tablet by mouth once daily. Hand Mixer: Addendum Therapy (PT/OT/Speech/Resp) ID: [id number] 09/17/2024 10:13 AM Author: RAYA AMBRIZ Signed by RAYA AMBRIZ PT on 09/17/2024 at 10:14 AM * * * This document replaces document [id number] * * * Document text: Program_ID:[id number] Access Code: [email or web address] URL: [email or web address] Date: 09-17-2024 Prepared By: Raya Ambriz Program [...] x weekly - 4 sets - reps THERAPY NT Observed: 09/09/2024 11:39 AM Status: COMPLETED Source: [facility] HNO ID: [id number] Author: RAYA AMBRIZ PT Service: ? Author Type: Physical Therapist Type: Therapy (PT/OT/Speech/Resp) Filed: 09/09/2024 11:40 Note Text: Program_ID:[id number] Access Code: [email or web address] URL: [email or web address] Date: 09-09-2024 Prepared By: Raya Ambriz Program [...] weekly - 4 sets - 12 reps CNTHERAPY Observed: 09/09/2024 11:15 AM Status: COMPLETED Source: [facility] OT/PT/Speech Visit (PTWS) MARICRUZ TEJADA ([id number]) 1 F Date Time Provider Department 09/09/24 11:15 AM RAYA AMBRIZ PTNNAMDI Date Time Provider Department Center 09/09/2024 11:15 AM [id number] AMBRIZ PTNNAMDI [place] Reason for Visit: Physical [...] Take 1 tablet by mouth once daily. Hand Mixer: Addendum Therapy (PT/OT/Speech/Resp) ID: [id number] 09/09/2024 11:39 AM Author: RAYA AMBRIZ Signed by RAYA AMBRIZ PT on 09/09/2024 at 11:40 AM * * * This document replaces document [id number] * * * Document text: Program_ID:[id number] Access Code: [email or web address] URL: [email or web address] Date: 09-09-2024 Prepared By: Raya Ambirz Program Notes Exercises - Standing Shoulder Row [...] weekly - 4 sets - 12 reps PROGRESS Observed: 09/09/2024 11:09 AM Status: COMPLETED Source: [facility] HNO ID: [id number] Author: RAYA AMBRZI, PT Service: ? Author Type: Physical Therapist [...] Planned: 16 Planned Treatment Interventions: Therapeutic exercise (72946), Neuromuscular re-education (62191), Manual therapy (10309), Therapeutic activities (19788), Self-correction management (27331) PLAN FOR NEXT VISIT: Continue RTC stabilization [...] 1105 Session Stop Time : 1145 Raya mAbriz PT [id number] Observed: 09/02/2024 10:58 AM Status: COMPLETED Source: [facility] HNO ID: [id number] Author: RAYA AMBRIZ PT Service: ? Author Type: Physical Therapist Type: [id number] Filed: 09/02/2024 10:58 Note Text: [facility] Physical Therapy Plan of Care Certification Patient Name: Maricruz Tejada : 2005 [facility] #: [id number] Date: 09/02/2024 To: Federico Monroy V DO From Therapist: Raya Ambriz PT RE: Patient Certification/ Recertification Your review, approval and electronic signature are required in order to comply with Payor: [facility] / Plan: [facility] / Product Type: HMO / [...] Goals for Episode of Care: established 09/02/24 [place] in home exercise program. Patient will decrease [...] Planned: 16 Planned Treatment Interventions: Therapeutic exercise (46983), Neuromuscular re-education (36794), Manual therapy (50888), Therapeutic activities (43878), Self-correction management (46959) PLAN FOR NEXT VISIT: Patient demonstrates good understanding of plan of care and treatment. The above goals and plan of care were discussed and agreed upon by patient/family. For further details regarding this patient refer to the Physical Therapy electronically documented visit dated 09/02/2024. Provider Attestation I have reviewed the treatment plan for Maricruz Tejada, CC# [id number] for the period of 09/02/24 -- 10/14/24, established on 09/02/2024. Signature certifies the need for therapy services. THERAPY NT Observed: 09/02/2024 10:17 AM Status: COMPLETED Source: [facility] HNO ID: [id number] Author: RAYA AMBRIZ, PT Service: ? Author Type: Physical Therapist Type: Therapy (PT/OT/Speech/Resp) Filed: 09/02/2024 10:17 Note Text: Program_ID:[id number] Access Code: [email or web address] URL: [email or web address] Date: 09-02-2024 Prepared By: Raya Ambriz Program Notes Exercises - Seated Cervical Retraction - 2-3 x daily - 7 x weekly - 4 sets - 10 reps - Seated Scapular Retraction - 2-3 x daily - 7 x weekly - 2 sets - 20 reps PROGRESS Observed: 09/02/2024 10:05 AM Status: COMPLETED Source: [facility] HNO ID: [id number] Author: RAYA AMBRIZ, PT Service: ? Author [...] Goals for Episode of Care: established 09/02/24 [place] in home exercise program. 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 Patient education as noted. Self-Retirement Management: 1: discussed posture Skilled Intervention: Skilled [...] Time (minutes): 27 Session Start Time : 956 Session Stop Time : 1023 Raya Ambriz PT CNTHERAPY Observed: 09/02/2024 9:45 AM Status: COMPLETED Source: [facility] OT/PT/Speech Visit (PTWS) MARICRUZ TEJADA ([id number]) 1 F Date Time Provider Department 09/02/24 9:45 AM RAYA AMBRIZ PTNNAMDI Date Time Provider Department Mentcle 09/02/2024 9:45 AM [id number] AMBRIZ Alvaro Brandon Reason for Visit: PT Eval [747] Primary [...] Take 1 tablet by mouth once daily. Hand Mixer: Therapy (PT/OT/Speech/Resp) ID: [id number] 09/02/2024 10:17 AM Author: RAYA AMBRIZ Signed by RAYA AMBRIZ PT on 09/02/2024 at 10:17 AM Document text: Program_ID:[id number] Access Code: [email or web address] URL: [email or web address] Date: 09-02-2024 Prepared By: Raya Ambriz Program Notes Exercises - Seated Cervical Retraction - 2-3 x daily - 7 x weekly - 4 sets - 10 reps - Seated Scapular Retraction - 2-3 x daily - 7 x weekly - 2 sets - 20 reps PROGRESS Observed: 08/29/2024 10:41 AM Status: COMPLETED Source: [facility] HNO ID: [id number] Author: FEDERICO MONROY DO Service: ? Author [...] Difficulty of Left Ear Acute Pharyngitis, Unspecified Animal-Maann Injured By Fall From Or Being Thrown [...] subacromial bursa Informed Consent Consent Obtained: Verbal [place] Protocol SIGN IN TIME OUT 08/29/2024 10:44 [...] DATE: August 29, 2024 TIME: 10:41 AM PROGRESS Observed: 08/29/2024 10:31 AM Status: [facility]PLETED [id number] Author: DAISY BENNETT MA Service: ? Author Type: [employer] Type: Progress Notes Filed: 08/29/2024 10:45 Note Text: AMB ROOMING INTAKE FLOWSHEET DATA Pain Pain Level: 8 (with movement) Pain Location: Shoulder-Right Description: Sharp Duration Amount of Time: (ongoing) Frequency: Intermittent Intervention/Comfort measure: Reposition CNOV Observed: 08/29/2024 10:30 AM Status: COMPLETED Source: [facility] Office Visit (FRFHWS) MARICRUZ TEJADA ([id number]) 1 F Date Time Provider Department 08/29/24 10:30 AM [facility] today, we recorded [...] June 04, 2024. [DISCONTINUED] Norethindrone Acet-Ethinyl Est (JUNE,) 1-20 mg-mcg [...] subacromial bursa Informed Consent Consent Obtained: Verbal [place] Protocol SIGN IN TIME OUT 08/29/2024 10:44 [...] DATE: August 29, 2024 TIME: 10:41 AM Referring Provider: FEDERICO MONROY V [[id number]] Allergies As of Date: 08/29/2024 Noted Allergy Reaction CODEINE 07/03/2007 TRAMADOL 06/30/2014 9 - Itching 14 - Other: See Comments Comments: Dizziness Date Reviewed: 08/29/2024 Reviewed by: Daisy Bennett MA - Fully Assessed Reason for Visit: 4 week post visit right shoulder pain - wants injection [Other] Primary Visit Diagnosis:Rotator cuff disorder, right [M67.911] Order(s):Large Joint Arthro/Inj: R subacromial bursa [TTS654] Order #: [id number] [] BUPivacaine (PF) 0.5 % (5 mg/mL) 4 mL injectionDisp: Rfl: [] betamethasone acetate-betamethasone sodium phosphate 6 mg injection (CELESTONE)Disp: Rfl: [] lidocaine (PF) 10 mg/mL (1 %) 4 mL injection (XYLOCAINE)Disp: Rfl: Prescriptions as of 08/29/2024 - baclofen 10 mg tablet Take 10 [...] once daily. Problem List As Of Date 08/29/2024 Noted Resolved Tabor's fracture of base of [...] ordered this encounter Disp Refills Start End BUPIVACAINE (PF) 0.5 % (5 MG/ML) INJ* 08/29/2024 08/29/2024 Route: Inj-ORTHO BETAMETHASONE ACETATE AND SODIUM VIANCA* 08/29/2024 08/29/2024 Route: Inj-ORTHO LIDOCAINE (PF) 10 MG/ML (1 %) INJECT* 08/29/2024 08/29/2024 Route: Inj-ORTHO Encounter Status:Closed by FEDERICO MONROY V on 08/29/24 ALLERGIES DATE TYPE / CODE NAME / CODE REACTION SEVERITY SOURCE 06/30/2014 DRUG INGREDI/[id number](SN OMED CT) TRAMADOL ITCHING [facility] 07/03/2007 DRUG INGREDI/[id number](SN OMED CT) CODEINE [facility] ENCOUNTERS ADMIT/DISCHARGE ACCOUNT NUMBER ADMITTING ENCOUNTER CLASS LOCATION SOURCE 08/14/2025/08/14/20 [id number] Ambulatory [facility]MMCA [facility] 07/31/2025/07/31/20 25 [id number] Ambulatory [facility] ding:WOFM [facility] 07/07/2025/07/07/20 25 [id number] [facility] 07/03/2025/07/03/20 25 [id number] [facility]AKPT[facility] 07/03/2025/07/03/20 25 [id number] Ambulatory [facility] 06/17/2025/06/17/20 25 [id number] [facility] 06/11/2025/06/11/20 25 [id number] Ambulatory [facility] ding:OB [facility] 06/01/2025/06/01/20 25 [id number] Ambulatory [facility] 05/28/2025/05/28/20 25 [id number] Ambulatory [facility] ding:[facility] 05/27/2025/05/27/20 25 [id number] Ambulatory [facility] 05/19/2025/05/19/20 25 [id number] [facility] 05/15/2025/05/15/20 25 [id number] [facility] 05/05/20[facility]/05/05/20 25 [id number] [facility] 04/21/2025/04/21/20 25 [id number] Ambulatory [facility] ding:[facility] 04/20/2025/04/20/20 25 [id number] [facility] 04/16/2025/04/16/20 25 [id number] Ambulatory [facility] 04/14/2025/04/14/20 25 [id number] [facility]:AG[facility] 04/06/2025/04/06/20 25 [id number] [facility] 04/03/2025/04/03/20 25 [id number] DAVIDSON MCARTHUR [facility] 04/01/2025/04/01/20 25 [id number] Ambulatory [facility]:WOFM [facility] 04/01/2025/04/01/20 25 [id number] Ambulatory [facility]:PACOA [facility] 03/30/2025/03/30/20 25 [id number] [facility]AKPAT [facility] 03/12/2025 [id number] ZHEN KUO [facility]AKEPRoom : POOLBed: 04 [facility] 03/03/2025/03/03/20 25 [id number] Ambulatory [facility]:OB [facility] 02/16/2025/02/17/20 25 [id number] [facility]AGHWG [facility] 02/13/2025/02/14/20 25 [id number] Ambulatory [facility] Hospital[facility] ding:CARLOSFB [facility] 02/12/2025/02/13/20 25 [id number] Ambulatory [facility]:KATHERYN [facility] 01/29/2025/01/30/20 25 [id number] Ambulatory [facility]:ALICIA [facility] 01/29/2025/01/30/20 25 [id number] Ambulatory [facility]:JOSEPH [facility] 01/29/2025/01/30/20 25 [id number] Ambulatory [facility]:WOLB [facility] 01/29/2025/01/30/20 25 [id number] Ambulatory [facility]:WOFM [facility] 01/22/2025/01/23/20 25 [id number] Ambulatory [facility] ding:MCUC [facility] 01/20/2025 [id number] [facility]AKXRMR [facility] 01/20/2025/01/21/20 25 [id number] EVELYNE HARRIS [facility]AKIRRoom : POOLBed: 04 [facility] 01/20/2025 [id number] [facility]AKGUA [facility] 01/15/2025/01/15/20 25 [id number] [facility]/05/[facility]/01/05/20 25 [id number] Ambulatory [facility] ding:MERCEDES [facility] 12/26/2024/12/26/19 25 [id number] [facility]ulatory [facility] 12/22/2024/12/22/19 25 [id number] [facility]:AGHWG [facility] 12/17/2024/12/17/19 25 [id number] Ambulatory [facility] ding:MERCEDES [facility] 12/10/2024/12/10/19 25 [id number] Ambulatory [facility]:KIT [facility] 12/02/2024/12/02/19 25 [id number] Ambulatory [facility] ding:MERCEDES [facility] 11/27/2024/11/27/19 25 [id number] Ambulatory [facility]:WINSTON [facility] 11/25/2024/11/25/19 25 [id number] Ambulatory [facility]:TRUNG [facility] 11/25/2024/11/25/19 25 [id number] Ambulatory [facility]:BON [facility] 10/21/2024/10/21/20 24 [id number] [facility]ulatory [facility] 10/01/2024/10/01/20 24 [id number] Ambulatory [facility]:WINSTON [facility] 09/17/2024/09/17/20 24 [id number] Ambulatory [facility]:WINSTON [facility] 09/09/2024/09/09/20 24 [id number] Ambulatory [facility]:WOPT [facility] 09/02/2024/09/02/20 24 [id number] Ambulatory [facility]:WOPT [facility] 08/29/2024/08/29/20 24 [id number] Ambulatory [facility] ding:FRFW [facility] PAYERS ENCOUNTER GUARANTOR PAYER SUBSCRIBER SOURCE 08/14/2025 Primary Insuranc e:UHC CHOICE PLUSPolicy Number: [id number] Date:8488-10-00Bgvu Name:Mely Emerson VINEETJESUSYUSUFOB: [id number] [address] 07/31/2025 Primary Insuranc e:UHC CHOICE PLUSPolicy Number: [id number] Date:4479-80-45Zdee Name:Mely Emerson RUMAOB: 1175-23-02UKP086 [address] 07/07/2025 Primary Insuranc e:UHC CHOICE PLUSPolicy Number: [id number] Date:5150-50-57Xzvl Name:Mely Emerson VINEETJESUSYUSUFOB: [id number] [address] 07/03/2025 Primary Insuranc e:UHC CHOICE PLUSPolicy Number: [id number] Date:7833-10-37Zota Name:Mely Emerson VINEETJESUSYUSUFOB: [id number] [address] 07/03/2025 Primary Insuranc e:UHC CHOICE PLUSPolicy Number: [id number] Date:6074-51-96Vonf Name:Mely LOERALIGIA: [id number] [address] 06/17/2025 Primary Insuranc e:UHC CHOICE PLUSPolicy Number: [id number] Date:0211-68-40Wnlw Name:Mely Emerson RUMAOB: [id number] [place] [address] 06/11/2025 Primary Insuranc e:UHC CHOICE PLUSPolicy Number: [id number] Date:9442-48-02Lzwq Name:Mely HENDRIXOB: [id number] [address] 06/01/2025 Primary Insuranc e:UHC CHOICE PLUSPolicy Number: [id number] Date:6881-35-77Yjeb Name:Mely HENDRIXOB: [id number] [address] 05/28/2025 Primary Insuranc e:UHC CHOICE PLUSPolicy Number: [id number] Date:9864-86-18Uzmq Name:Mely HENDRIXOB: 3200-33-35TBW463 [address] 05/27/2025 Primary Insuranc e:UHC CHOICE PLUSPolicy Number: [id number] Date:5327-10-17Pvsl Name:Mely HENDRIXOB: [id number] [address] 05/19/2025 Primary Insuranc e:UHC CHOICE PLUSPolicy Number: [id number] Date:2568-26-12Jcqk Name:Mely HENDRIXOB: [id number] [address] 05/15/2025 Primary Insuranc e:UHC CHOICE PLUSPolicy Number: [id number] Date:3401-20-01Begz Name:Mely HENDRIXOB: [id number] [address] 05/05/2025 Primary Insuranc e:UHC CHOICE PLUSPolicy Number: [id number] Date:4927-31-72Limq Name:Mely HENDRIXOB: 6903-62-01IKH233 [address] 04/21/2025 Primary Insuranc e:UHC CHOICE PLUSPolicy Number: [id number] Date:0860-94-46Srbq Name:Mely HENDRIXOB: [id number] [place] [address] 04/20/2025 Primary Insuranc e:UHC CHOICE PLUSPolicy Number: [id number] Date:1772-34-08Trge Name:Mely HENDRIXOB: [id number] [place] [address] 04/16/2025 Primary Insuranc e:UHC CHOICE PLUSPolicy Number: [id number] Date:3477-35-39Obei Name:Mely HENDRIXOB: [id number] [place] [address] 04/14/2025 Primary Insuranc e:UHC CHOICE PLUSPolicy Number: [id number] Date:5693-75-06Ehmi Name:Mely HENDRIXOB: [id number] [place] [address] 04/06/2025 Primary Insuranc e:UHC CHOICE PLUSPolicy Number: [id number] Date:9113-88-11Bpmb Name:Mely HENDRIXOB: [id number] [place] [address] 04/03/2025 Primary Insuranc e:UHC CHOICE PLUSPolicy Number: [id number] Date:7581-21-66Tzgo Name:Mely HENDRIXOB: [id number] [place] [address] 04/01/2025 Primary Insuranc e:UHC CHOICE PLUSPolicy Number: [id number] Date:7275-34-32Jyqu Name:Mely HENDRIXOB: [id number] [place] [address] 04/01/2025 Primary Insuranc e:UHC CHOICE PLUSPolicy Number: [id number] Date:2811-72-99Bueu Name:Mely HENDRIXOB: [id number] [address] 03/30/2025 Primary Insuranc e:UHC CHOICE PLUSPolicy Number: [id number] Date:2599-79-94Fqvm Name:Mely HENDRIXOB: [id number] [place] [address] 03/12/2025 Primary Insuranc e:UHC CHOICE PLUSPolicy Number: [id number] Date:4746-11-39Hicl Name:Mely HENDRIXOB: [id number] [place] [address] 03/03/2025 Primary Insuranc e:UHC CHOICE PLUSPolicy Number: [id number] Date:4406-50-71Dhin Name:Mely HENDRIXOB: [id number] [place] [address] 02/16/2025 Primary Insuranc e:UHC CHOICE PLUSPolicy Number: [id number] Date:7140-38-62Gcaz Name:Mely HENDRIXOB: [id number] [place] [address] 02/13/2025 Primary Insuranc e:UHC CHOICE PLUSPolicy Number: [id number] Date:8715-42-38Wuqa Name:Mely HENDRIXOB: [id number] [place] [address] 02/12/2025 Primary Insuranc e:UHC CHOICE PLUSPolicy Number: [id number] Date:8715-03-37Nbbn Name:Mely HENDRIXOB: [id number] [place] [address] 01/29/2025 Primary Insuranc e:UHC CHOICE PLUSPolicy Number: [id number] Date:9051-24-04Vock Name:Mely HENDRIXOB: 0764-27-80BJN[address] [place] [address] 01/29/2025 Primary Insuranc e:UHC CHOICE PLUSPolicy Number: [id number] Date:3317-42-20Klvg Name:Mely HENDRIXOB: 6523-62-42SPX501 [address] 01/29/2025 Primary Insuranc e:UHC CHOICE PLUSPolicy Number: [id number] Date:8398-26-77Ynlu Name:Mely HENDRIXOB: [id number] [address] 01/29/2025 Primary Insuranc e:UHC CHOICE PLUSPolicy Number: [id number] Date:1519-06-72Yyiy Name:Mely HENDRIXOB: [id number] [address] 01/22/2025 Primary Insuranc e:UHC CHOICE PLUSPolicy Number: [id number] Date:2290-70-98Lyvy Name:Mely HENDRIXOB: 4007-73-45ARE013 [address] 01/20/2025 Primary Insuranc e:UHC CHOICE PLUSPolicy Number: [id number] Date:2690-40-76Rqiu Name:Mely HENDRIXOB: 4856-23-65IPB053 [address] 01/20/2025 Primary Insuranc e:UHC CHOICE PLUSPolicy Number: [id number] Date:4034-13-17Mygh Name:Mely HENDRIXOB: 1078-68-15JHS252 [address] 01/20/2025 Primary Insuranc e:UHC CHOICE PLUSPolicy Number: [id number] Date:2390-36-55Czgb Name:Mely HENDRIXOB: [id number] [address] 01/15/2025 Primary Insuranc e:UHC CHOICE PLUSPolicy Number: [id number] Date:9066-00-88Wkjq Name:Mely HENDRIXOB: 5615-81-99MRQ087 [address] 01/05/2025 Primary Insuranc e:UHC CHOICE PLUSPolicy Number: [id number] Date:3476-84-55Toty Name:Mely HENDRIXOB: [id number] [place] [address] 12/26/2024 Primary Insuranc e:UHC CHOICE PLUSPolicy Number: [id number] Date:4076-08-08Ectn Name:Mely HENDRIXOB: [id number] [place] [address] 12/22/2024 Primary Insuranc e:UHC CHOICE PLUSPolicy Number: [id number] Date:0710-07-91Cdci Name:Mely HENDRIXOB: [id number] [place] [address] 12/17/2024 Primary Insuranc e:UHC CHOICE PLUSPolicy Number: [id number] Date:4055-17-07Ulny Name:Mely HENDRIXOB: 0880-65-32ESS12[address] [place] [address] 12/10/2024 Primary Insuranc e:UHC CHOICE PLUSPolicy Number: [id number] Date:9443-77-53Hxen Name:Mely HENDRIXOB: [id number] [place] [address] 12/02/2024 Primary Insuranc e:UHC CHOICE PLUSPolicy Number: [id number] Date:5063-51-57Cgja Name:Mely HENDRIXOB: [id number] [place] [address] 11/27/2024 Primary Insuranc e:UHC CHOICE PLUSPolicy Number: [id number] Date:1099-03-15Jelt Name:Mely HENDRIXOB: [id number] [address] 11/25/2024 Primary Insuranc e:UHC CHOICE PLUSPolicy Number: [id number] Date:5992-67-81Stay Name:Mely HENDRIXOB: 4060-65-58XQB107 [address] 11/25/2024 Primary Insuranc e:UHC CHOICE PLUSPolicy Number: [id number] Date:4990-09-23Lntb Name:Mely HENDRIXOB: 7005-03-15KAQ320 [address] 10/21/2024 Primary Insuranc e:UHC CHOICE PLUSPolicy Number: [id number] Date:0153-57-16Dvwx Name:Mely HENDRIXOB: 5950-52-81DPT889 [address] 10/01/2024 Primary Insuranc e:UHC CHOICE PLUSPolicy Number: [id number] Date:4502-97-60Nevt Name:Mely HENDRIXOB: 5246-76-56ROK353 [address] 09/17/2024 Primary Insuranc e:UHC CHOICE PLUSPolicy Number: [id number] Date:8588-17-55Rpoc Name:Mely HENDRIXOB: 5296-14-01GYZ613 [address] 09/09/2024 Primary Insuranc e:UHC CHOICE PLUSPolicy Number: [id number] Date:6260-13-56Qlst Name:Mely HENDRIXOB: 1063-50-34ZYP261 [address] 09/02/2024 Primary Insuranc e:UHC CHOICE PLUSPolicy Number: [id number] Date:2675-48-82Flkx Name:Mely HENDRIXOB: [id number] [place] [address] [facility] 08/29/2024 Primary Insuranc e:[facility] CHOICE PLUSPolicy Number: [id number] Date:1495-29-59Xyic Name:Mely HENDRIXOB: 9295-34-32TWJ506 [place], [place] [address] [place] [address]
[2025-08-16 13:32] VITALS: BP 118/87; PULSE 79; RESP 16; TEMP 36.4; O2SAT 100; BMI 27.3
[2025-08-16] MEDS: Lidocaine 1% /Epi 1:100 (20ml) 20 ML Vial INFILT (14:50)
--- NOTE | 2025-08-16 14:58 | EDS_ITS ---
HPI History of Present Illness HPI Narrative: 20-year-old female history of POTS. Was carrying a picture frame and fell lacerating her left thigh hour and a half ago. No other injuries. Last tetanus was about 17 years ago. No other complaints. Said the glass did not break. She does not think there is any foreign body. Denies any numbness distally. Chief Complaint: Laceration Informant: patient and parent Occured/Mechanism Mechanism/Context: Yes injury Onset/Context/Timing Onset: Today Context: Sudden Onset Timing: Continuous Quality of Pain: Sharp Current Severity: Mild Maximum Severity: Mild Associated Symptoms Associated Symptoms: Negative for Parasthesia, Weakness or Loss of Funtion Narrative Narrative: 20-year-old female history of POTS laceration left thigh when a glass from a picture frame cut her left proximal thigh. No other complaints. Occurred about 1 to 2 hours ago. Tetanus Immunization: >10 years Prior similar symptoms: No Recent Illness/Hospitalization: No PFSH PFSH Medical History Strain of right rotator cuff capsule Right shoulder strain Acute pharyngitis, unspecified Hx of renal calculi Otitis media Acute bacterial conjunctivitis Bronchitis Acute frontal sinusitis, unspecified Fatigue SOB (shortness of breath) Routine sports physical exam Home Medications ?Medication ?Instructions ?Recorded ?Last Taken ?Type sertraline 50 mg tablet 50 mg PO DAILY 01/17/20 Unkn own History oxycodone-acetaminophen 5 mg-325 1 tab PO Q6H PRN PRN pain 5 days 05/23/22 Unknown Rx mg tablet #20 TABLETS Allergy/AdvReac Type Severity Reaction Status Date / Time codeine Allergy Other Verified 07/09/25 22:53 tramadol Allergy Unknown Verified 07/09/25 22:53 Family History Mother Asthma Surgical History Thumb fracture Social History household members: family Smoking Status: Never smoker substance use type: does not use ROS ROS ED ROS Narrative Denies except recent sinus infection Constitutional Constitutional ED: Denies chills or fever(s) Eyes Eyes: Denies blurry vision ENT ENT ED: Denies ear pain Cardiovascular Cardiovascular: Denies chest pain Respiratory/Chest Respiratory/Chest: Denies cough or dyspnea Gastrointestinal Gastrointestinal: Denies abdominal pain Genitourinary Genitourinary ED: Denies dysuria Musculoskeletal Musculoskeletal: Denies arthralgias Integumentary Denies abscess Neurologic Neurologic: Denies headache(s) Psychiatric Psychiatric: Denies anxiety or depression Endocrine Endocrinology: Denies polydipsia or polyphagia Hematologic/Lymphatic Hematologic/Lymphatic: Denies easy bleeding, easy bruising or lymphadenopathy Allergic/Immunologic Allergic/Immunologic ED: Denies mouth swelling, tongue swelling or urticaria EXAM Physical Exam Narrative Exam Narrative: 20-year-old female vital signs stable afebrile no acute distress. Accompanied by her mom. H EENT exam pupils round reactive light. Moist mutes membranes. Neck nontender. Lungs clear to auscultation bilaterally. Heart regular rhythm no murmur. Abdomen soft nontender. Moving all 4 extremities. Neurovascular intact. Normal strength. Normal range of motion. Medial proximal thigh there is about a 3 inch laceration involving skin and subcu fatty tissue. There is no significant bleeding. There is no pulsatile bleeding. There is no foreign body or signs of infection. There is no joint, tendon or ligament involvement. Distally left foot is neurovascularly intact with normal strength. Normal range of motion. Normal dorsi plantarflexion. Normal sensation. Patient is awake alert. No focal motor or sensory deficits. Const Vital Signs: 08/16/25 13:32 Temperature 97.6 F L Temperature Source Temporal Pulse Rate 79 Respiratory Rate 16 Blood Pressure 118/87 H Blood Pressure Mean 97 Pulse Ox 100 Oxygen Delivery Method Room Air Positive well nourished and well developed; Negative for cachectic, contractures or unkempt General Appearance ED: well developed and NAD; Negative for unkempt, cachectic or contractures Nutritional Appearance: Negative for cachectic HEENT Reports moist mucous membranes normocephalic and atraumatic Eyes PERRL Neck full ROM and supple Chest Wall inspection of chest normal and palpation of chest normal Resp normal respiratory effort, no retractions and clear to auscultation bilaterally Cardio regular rate, regular rhythm, S1 normal heart sound, S2 normal heart sound and no murmurs GI non-tender, non-distended and no masses Auscultation: normoactive bowel sounds Palpation: soft; Negative for tender or guarding Extremity normal to inspection and full ROM Extremity Narrative: Except mid proximal left thigh about 3 inch laceration involving the skin and subcu tissue. No significant bleeding. No pulsatile bleeding. No foreign b karri. No infection. No pus or redness. Full range of motion. Involves the skin and subcu tissue. Distally the left foot is neurovascularly intact with normal range of motion. Strength. Sensation. Neuro oriented x3, CN's II-XII intact bilaterally, moves all extremities and no sensory deficits noted Sensorium / Orientation: alert, oriented to person, oriented to place and oriented to time Motor Exam: strength 5/5 throughout Psych mental status grossly normal Appearance: Negative for unkempt Skin No no wounds Skin Narrative: Left medial proximal thigh laceration. Lesions: no lesions Rashes: no rashes Trauma: laceration MDM MDM MDM Narrative Medical decision making narrative: 20-year-old left thigh laceration needs repaired. Tetanus will be updated. Local anesthetized. Lidocaine with epinephrine. Cleaned with Shur-Clens washed with saline. Explored. Closed using 4 oh simple other abrupted suture. History & Record Review Discussion w/independent historian: Patient and Family Additional record(s) reviewed:: Prior inpatient record, Prior outpatient record, Prior ED visit and Prior labs Procedures Lacerations Left thigh laceration repair:: Length: 3 in Depth: Sub Q Shape: Linear Prep: Sterile Conditions and Shure-Clens Laceration repair: Irrigated, Lidocaine with epi, Local, Skin sutures and Wound explored Number of Sutures/Mt Baldy: 8 Suture Information: Ethilon, Simple and 4-0 Comment: Left thigh laceration. Locally anesthetized with lidocaine with epi. Cleaned with Shur-Clens. Washed irrigated with saline. Explored. Closed using 8 simple erupted 4-0 Ethilon sutures. Proper hemostasis wound closure obtained. Patient tolerated procedure well. Was instructed on wound care. Discharge Plan Triage Chief Complaint: Laceration ED Provider: Cristopher Austin Dx/Rx/DC Orders Clinical Impression: Laceration of left thigh Instructions: ED Laceration Extremity Prescriptions: No Action sertraline 50 mg tablet 50 mg PO DAILY Patient Comments: TAKE 1 TABLET BY MOUTH EVERY DAY oxycodone-acetaminophen [oxycodone-acetaminophen] 5-325 mg tablet 1 tab PO Q6H PRN PRN (Reason: pain) 5 Days Qty: 20 0RF Primary Care Provider: Celso Freire Referrals: Celso Freire, DO [Primary Care Provider, Medical] - 10 Day for suture removal Activity Restrictions/Additional Instructions: Keep the wound clean and dry. Clean daily with either soap water or peroxide water. Dry thoroughly. You can get it wet in the shower try not to soak it in water. Dry thoroughly when you are done bathing. Watch for any signs of infection such as redness, pus, swelling or streaks if seen return. Motrin and Tylenol for pain. Stitches out in 10 days or so. Your tetanus was updated and is good for about 10 years. Print Language: Khmer Disposition Disposition: Home, Self Care
[2025-08-16 15:47] VITALS: BP 119/68; PULSE 68; RESP 16; TEMP 36.6; O2SAT 100
== END 2025-08-16 15:48 | disposition home or self-care (01) ==
PROVIDERS: Emergency Provider Emergency Medicine; PCP Student in an Organized Health Care Education/Training Program; Visit Provider Emergency Medicine
DX: S71.112A Laceration without foreign body, left thigh, initial encounter (principal); W25.XXXA Contact with sharp glass, initial encounter; Z23 Encounter for immunization
CPT/HCPCS: 12002; 90715; 99284